=== PATIENT | female | born 1970 | race Caucasian/White ===

== ENCOUNTER 2023-03-14 10:11 | Outpatient (OUT) | payer MEDICARE, MEDICAID, SELFPAY ==
--- NOTE | 2023-03-14 | XR_ITS ---
The [address] [address] Patient Name: DASHA WRIGHT MRN: [id number] date: 1970 Sex: F Assigned Patient Location: [facility] Current Patient Location: [facility] Accession/Order Number: [id number] Exam Date: 03/14/2023 10:20 Report Date: 03/14/2023 12:40 At the request of: CLEOPATRA WHATLEY Procedure: XR shoulder NAIN min 2V STUDY: XR shoulder NAIN min 2V, [id number] HISTORY: Bilateral shoulder pain M25.511, M25.512 COMPARISON: Right shoulder x-rays 08/28/2021 FINDINGS: Right shoulder: No acute fracture, dislocation, or suspicious osseous lesion. Status post distal clavicular resection. A bone anchor is present in the humeral head. No significant glenohumeral joint degenerative changes. No abnormal soft tissue calcifications. Left shoulder: No acute fracture, dislocation, or suspicious osseous lesion. Minimal osteoarthritis of the acromioclavicular joint. Bone anchor in the proximal humerus likely from biceps tendon tenodesis. No significant degenerative changes of the glenohumeral joint. No abnormal soft tissue calcifications. XR/XR shoulder NAIN min 2V IMPRESSION: 1. Minimal osteoarthritis of the left acromioclavicular joint. 2. No significant osteoarthritis of the glenohumeral joints. 3. No evidence of calcific tendinitis. Electronically authenticated by: BERNARDINO HAYES Date: 03/14/2023 12:40
== END 2023-03-14 10:12 | disposition home or self-care (01) ==
LOC: RAD 10:11
PROVIDERS: Visit Provider Orthopaedic Surgery
DX: M25.511 Pain in right shoulder (principal); M25.512 Pain in left shoulder
CPT/HCPCS: 73030

== ENCOUNTER 2023-03-21 10:41 | Outpatient (OUT) | payer MEDICARE, MEDICAID, SELFPAY ==
--- NOTE | 2023-03-21 10:53 | MR_ITS ---
[address] [address] Patient Name: DASHA WRIGHT MRN: [id number] date: 1970 Sex: F Assigned Patient Location: MRI Current Patient Location: MRI Accession/Order Number: [id number] Exam Date: 03/21/2023 11:08 Report Date: 03/21/2023 15:29 At the request of: CLEOPATRA WHATLEY Procedure: MR shoulder RT wo con EXAMINATION: MR shoulder RT wo con HISTORY: Pain In Right Shoulder M25.511 COMPARISON: No relevant comparison available. TECHNIQUE: A variety of imaging planes and parameters were utilized for visualization of suspected pathology. Imaging was performed without or with contrast as indicated by examination type. FINDINGS: ROTATOR CUFF REGION CUFF TENDONS: Prior rotator cuff repair with hardware artifact within humeral head. Increased T2 signal diffusely within the supraspinatus tendon; high-grade strain versus tear. CUFF MUSCLES: Normal appearing muscles. DELTOID: Normal. No significant atrophy or tear. LONG BICEPS TENDON: Marked attrition; possible chronic tear; no increased fluid surrounding the tendon to suggest acute tear. LABRUM/BICEPS ANCHOR SUPERIOR: Limited evaluation due to significant motion artifact; no appreciable significant tear. ANTERIOR/INFERIOR: No appreciable tear POSTERIOR: No appreciable tear CAPSULE Normal. No visible capsular laxity or thickening. AC JOINT REGION AC JOINT: Widening of the acromioclavicular joint with prominent fluid collection within and extending anterior to the joint. AC LIGAMENTS: Obscured. CC LIGAMENTS: Obscured. ACROMION: Mild lateral downsloping. SUBACROMIAL BURSA: No appreciable effusion. HYALINE CARTILAGE: Thinning. No appreciable focal defect. OTHER BONES: Normal proximal humerus, glenoid, and coracoid. OTHER OBSERVATIONS: Negative. No other significant findings or glenohumeral effusion. MR/MR shoulder RT wo con IMPRESSION: 1. Examination is limited by significant patient motion artifact. 2. Suspect high-grade strain of the supraspinatus tendon. Partial tear cannot be completely excluded. 3. Changes within humeral head from prior rotator cuff repair. 4. Marked attrition of the long biceps tendon versus remote tear. 5. Limited evaluation of the labrum and biceps anchor due to motion. 6. Abnormal widening of the acromioclavicular joint with prominent surrounding fluid collection; new compared to 08/28/2021 right shoulder x-ray. Electronically authenticated by: CLEOPATRA COREA Date: 03/21/2023 15:29
== END 2023-03-21 10:42 | disposition home or self-care (01) ==
PROVIDERS: Visit Provider Orthopaedic Surgery
DX: M25.511 Pain in right shoulder (principal)
CPT/HCPCS: 73221

== ENCOUNTER 2023-12-26 09:24 | Outpatient (OUT) | payer MEDICARE, MEDICAID, SELFPAY ==
--- NOTE | 2023-12-26 | XR_ITS ---
The [address] [address] Patient Name: DASHA WRIGHT MRN: [id number] date: 1970 Sex: F Assigned Patient Location: Current Patient Location: Accession/Order Number: [id number] Exam Date: 12/26/2023 09:25 Report Date: 12/26/2023 14:36 At the request of: CLEOPATRA WHATLEY Procedure: XR knee LT 4V EXAM: Left knee HISTORY: . LEFT KNEE PAIN . COMPARISON: None. TECHNIQUE: 4 views FINDINGS: No fracture or dislocation of left knee is noted. Small spurs are noted involving the knee joint as well as the patellofemoral joint. Surrounding soft tissues are unremarkable. XR/XR knee LT 4V IMPRESSION: Osteoarthritic changes of the left knee. Electronically authenticated by: DEE DEE WASHINGTON Date: 12/26/2023 14:36
== END 2023-12-26 09:25 | disposition home or self-care (01) ==
LOC: EC 09:24
PROVIDERS: Visit Provider Orthopaedic Surgery
DX: M25.562 Pain in left knee (principal); M17.12 Unilateral primary osteoarthritis, left knee
CPT/HCPCS: 73564

== ENCOUNTER 2024-08-01 14:31 | Outpatient (OUT) | payer MEDICARE, MEDICAID, SELFPAY ==
--- NOTE | 2024-08-01 14:33 | ECG_ITS ---
The [facility] Test Date: 2024-08-01 Pat Name: DASHA WRIGHT Department: Room: - Gender: Female Perioperative Assistant: : 1970 Requested By: Yovani Payan Order Number: [id number] Reading MD: NICK WEAVER Measurements Intervals Brandon Rate: 75 P: 59 SC: 192 QRS: -13 QRSD: 100 T: 47 QT: 386 QTc: 434 Interpretive Statements SINUS RHYTHM No previous ECG available for comparison Electronically Signed On 08-01-2024 21:11:47 EST by NICK WEAVER
--- NOTE | 2024-08-01 15:06 | P.GSHP_ITS ---
History of Present Illness History of Present Illness Chief complaint: Right long trigger finger Narrative: Patient presents for presurgical testing. Please see HPI from Dr. Payan dated July 30, 2024 Review of Systems ROS Narrative REVIEW OF SYSTEMS: Negative except as stated in HPI, ten or more systems reviewed. Constitutional: No fever, chills, weakness ENT: No sore throat or epistaxis Cardiovascular: No edema, chest pain, palpitations, or activity intolerance Respiratory: No shortness of breath, cough, or wheezing Gastrointestinal: No abdominal pain, constipation, diarrhea, or vomiting Genitourinary: No dysuria or hematuria Neurological: No numbness, tingling, weakness, or headache Psychiatric: No mood changes PFSH PFS Medical History (Updated 08/01/24 @ 14:56 by Esther Walsh NP) Arthritis ?M19.90 - Unspecified osteoarthritis, unspecified site (ICD-10) PTSD (post-traumatic stress disorder) ?F43.10 - Post-traumatic stress disorder, unspecified (ICD-10) Upper respiratory infection (06/2024) ?J06.9 - Acute upper respiratory infection, unspecified (ICD-10) Asthma ?J45.909 - Unspecified asthma, uncomplicated (ICD-10) Migraine ?G43.909 - Migraine, unspecified, not intractable, without status migrainosus (ICD-10) Menopause ?Z78.0 - Asymptomatic menopausal state (ICD-10) Anxiety ?F41.9 - Anxiety disorder, unspecified (ICD-10) Depression ?F32.A - Depression, unspecified (ICD-10) Hypertension ?I10 - Essential (primary) hypertension (ICD-10) COPD (chronic obstructive pulmonary disease) ?J44.9 - Chronic obstructive pulmonary disease, unspecified (ICD-10) Trigger finger ?M65.30 - Trigger finger, unspecified finger (ICD-10) Surgical History (Updated 08/01/24 @ 14:53 by Esther Walsh NP) History of tonsillectomy ?Z90.89 - Acquired absence of other organs (ICD-10) H/O hand surgery ?Z98.890 - Other specified postprocedural states (ICD-10) History of arthroscopy of knee ?Z98.890 - Other specified postprocedural states (ICD-10) History of arthroscopy of shoulder ?Z98.890 - Other specified postprocedural states (ICD-10) H/O arthroscopic knee surgery ?Z98.890 - Other specified postprocedural states (ICD-10) History of carpal tunnel release ?Z98.890 - Other specified postprocedural states (ICD-10) H/O shoulder surgery ?Z98.890 - Other specified postprocedural states (ICD-10) H/O tubal ligation ?Z98.51 - Tubal ligation status (ICD-10) History of appendectomy ?Z90.49 - Acquired absence of other specified parts of digestive tract (ICD- 10) Family History (Updated 08/01/24 @ 14:53 by Esther Walsh NP) Other Delayed recovery from anesthesia Family history of diabetes mellitus Family history of hypertension Family history of stroke Social History (Updated 08/01/24 @ 14:50 by Esther Walsh NP) Within the past year, how often did you have a drink containing alcohol: never Score interpretation: A score less than 3 is consistent with normal alcohol consumption. Smoking status: Never smoker Non-prescribed substance use: denies use Highest level of school completed/degree received: high school graduate Meds Home Medications and Allergies Home Medications ?Medication ?Instructions ?Recorded ?Confirmed ?Type albuterol sulfate 90 mcg/actuation 2 puff inhalation Q4H PRN 08/01/24 08/01/24 History aerosol inhaler shortness of breath or wheezing fluticasone 250 mcg-salmeterol 50 1 inh inhalation DAILY 08/01/24 08/01/24 History mcg/dose blistr powdr for inhalation (Wixela Inhub) ibuprofen 800 mg tablet 800 mg PO Q8H PRN pain 08/01/24 08/01/24 History Allergies Allergy/AdvReac Type Severity Reaction Status Date / Time tramadol Allergy Nausea Verified 08/01/24 14:48 Exam Narrative Exam Narrative: Constitutional: Awake, alert, comfortable, well-appearing, nontoxic, interactive, vital signs as charted Head: Normocephalic, atraumatic Neck: Supple, normal appearance, normal range of motion, no meningeal signs, no lymphadenopathy Respiratory: No respiratory distress, breath sounds clear Cardiovascular: Regular rate and rhythm, strong and regular heart tones Skin: No rashes or induration, no lesions, only visible skin inspected Neuro: No neurological deficits, normal sensation Psychiatric: Oriented ?3, normal affect Assessment and Plan Assessment and Plan (1) Trigger finger: Plan Third finger right hand trigger finger release scheduled with Dr. Payan August 06, 2024.
--- NOTE | 2024-08-01 15:20 | XR_ITS ---
The [address] [address] Patient Name: DASHA WRIGHT MRN: [id number] date: 1970 Sex: F Assigned Patient Location: [facility] Current Patient Location: [facility] Accession/Order Number: [id number] Exam Date: 08/01/2024 15:25 Report Date: 08/01/2024 15:48 At the request of: CLEOPATRA WHATLEY Procedure: XR chest 2V EXAM: XR chest 2V HISTORY: Pre op COMPARISON: None. TECHNIQUE: Upright PA and lateral chest x-ray FINDINGS: The heart is not enlarged and the vasculature is not distended. No acute infiltrate, effusion or pneumothorax is identified. The osseous structures are grossly intact. XR/XR chest 2V IMPRESSION: No acute infiltrate or evidence of cardiac decompensation. Electronically authenticated by: DAYNA MURPHY Date: 08/01/2024 15:48
== END 2024-08-01 14:32 | disposition home or self-care (01) ==
LOC: PST 14:32
PROVIDERS: Visit Provider Orthopaedic Surgery
DX: Z01.810 Encounter for preprocedural cardiovascular examination (principal); Z01.818 Encounter for other preprocedural examination; M65.331 Trigger finger, right middle finger
CPT/HCPCS: 71046; 93005; G0463

== ENCOUNTER 2024-08-06 12:23 | Day surgery (SDC) | payer MEDICARE, MEDICAID, SELFPAY ==
[2024-08-01 15:04] VITALS: BP 114/85; PULSE 84; TEMP 36.3; O2SAT 95; BMI 37.8
--- OUTSIDE RECORDS SUMMARY | 2024-08-06 12:43 | XMS_ITS | CCD ---
Author Organization [facility] Care Team Providers Care Computer Analyst Supervisor Name Role Phone Wally Lala Primary Care Provider [phone] Talha Sanchez Primary Care Provider Donna BOYD - TONE REGULATORSia Primary Care Provider SIA THOMPSON R Primary Care Unavailable HIREN MÁRQUEZA Referring Unavailable CLEOPATRA PAYAN Referring Unavailable KLONK, SIA R Primary Care Unavailable CLEOPATRA PAYAN Referring Unavailable KLONK, SIA R Primary Care Unavailable KATIE, ROSALIO S Referring Unavailable SCHWLACIER, TALHA Primary Care Unavailable CLEOPATRA PAYAN Admitting Unavailable KLSALASK, SIA R Primary Care Unavailable CLEOPATRA PAYAN Attending Unavailable CLEOPATRA PAYAN Attending Unavailable CLEOPATRA PAYAN Admitting Unavailable KLONK, SIA R Primary Care Unavailable CLEOPATRA PAYAN Admitting Unavailable CLEOPATRA PAYAN Attending Unavailable BRIANONK, SIA R Primary Care Unavailable KATIE, ROSALIO S Referring Unavailable SCHWERER, TALHA Primary Care Unavailable KLONK, SIA R Primary Care Unavailable WILLI JOSEPHINE Referring Unavailable CLEOPATRA PAYAN Referring Unavailable KLONK, SIA R Primary Care Unavailable CLEOPATRA PAYAN Admitting Unavailable CLEOPATRA PAYAN Attending Unavailable JARODK, SIA R Primary Care Unavailable MAGALY MACK Referring Unavailable KLONK, SIA R Primary Care Unavailable WILLI, JOSEPHINE J Referring Unavailable KLONK, SIA R Primary Care Unavailable CLEOPATRA PAYAN Referring Unavailable KLONK, SIA R Primary Care Unavailable RONAK HOGUE Referring Unavailable KLONK, SIA R Primary Care Unavailable CLEOPATRA PAYAN Referring Unavailable KLONK, SIA R Primary Care Unavailable HOGUE, KIMBERLEE Referring Unavailable KLONK, SIA R Primary Care Unavailable CLEOPATRA PAYAN Referring Unavailable KLONK, SIA R Primary Care Unavailable CLEOPATRA PAYAN Referring Unavailable KLONK, SAI R Primary Care Unavailable HOGUE, KIMBERLEE Referring Unavailable KLONK, SIA R Primary Care Unavailable HOGUE, KIMBERLEE Referring Unavailable KLONK, SIA R Primary Care Unavailable CLEOPATRA PAYAN Referring Unavailable KLONK, SIA R Primary Care Unavailable CLEOPATRA PAYAN Referring Unavailable KLONK, SIA R Primary Care Unavailable PAYAN, CLEOPATRA C Referring Unavailable KLONK, SIA R Primary Care Unavailable Klonk, Sia R Primary Care Physician Ariel Mckeon Unavailable MD Ariel Mckeon Attending Provider NO FAMILY, PHYSICIAN Primary Care Provider Unava ilable RONALD Thompson-C Sia R Primary Care Provider MD Ariel Mckeon Attending Provider RONALD Thompson-Bo Garland Primary Care Provider [phone] RONALD Thompson-Bo Garland Primary Care Provider MD Ariel Mckeon Attending Provider MARCELINO Thompson Attending Provider RONALD Thompson-C Sia R Primary Care Provider MD Ariel Mckeon Attending Provider MARCELINO Thompson Attending Provider Leslie Hannah Unavailable MARCELINO Thompson Primary Care Provider MD Ariel Mckeon Attending Provider Sury Mohr Unavailable RONALD Thompson-C Sia R Primary Care Provider MARCELINO Thompson Attending Provider MD Ariel Mckeon Attending Provider Ellie Ritchie Unavailable MARCELINO Thompson R Primary Care Provider MD Ariel Mckeon Attending Provider [phone] Olexa, Ariel Admitting Unavailable Olexa, Ariel Attending Unavailable Klonk, Sia R Primary Care Unavailable Klonk, Sia R Admitting Unavailable Klonk, Sia R Attending Unavailable Klonk, Sia R Primary Care Unavailable Olexa, Ariel Attending Unavailable Klonk, Sia R Primary Care Unavailable Olexa, Ariel Admitting Unavailable Olexa, Ariel Attending Unavailable Klonk, Sia R Primary Care Unavailable Olexa, Ariel Admitting Unavailable Olexa, Ariel Attending Unavailable Olexa, Ariel Admitting Unavailable Klonk, Sia R Primary Care Unavailable Olexa, Ariel Attending Unavailable Olexa, Ariel Admitting Unavailable Klonk, Sia R Primary Care Unavailable Olexa, Ariel Attending Unavailable Klonk, Sia R Primary Care Unavailable Olexa, Ariel Admitting Unavailable Olexa, Ariel Admitting Unavailable Olexa, Ariel Attending Unavailable Klonk, Sia R Primary Care Unavailable Olexa, Ariel Attending Unavailable Olexa, Ariel Admitting Unavailable Klonk, Sia R Primary Care Unavailable Olexa, Ariel Admitting Unavailable Olexa, Ariel Attending Unavailable Klonk, Sia R Primary Care Unavailable Olexa, Ariel Attending Unavailable Klonk, Sia R Primary Care Unavailable Olexa, Ariel Admitting Unavailable Olexa, Ariel Admitting Unavailable Olexa, Ariel Attending Unavailable Klonk, Sia R Primary Care Unavailable Olexa, Ariel Admitting Unavailable Olexa, Ariel Attending Unavailable Klonk, Sia R Primary Care Unavailable MELANY SCHUMACHER Primary Care Physician [phone] KEMI FERNANDEZ Attending Unavailable MELANY SCHUMACHER Primary Care Physician [phone] MELANY SCHUMACHER Attending Unavailable MELANY SCHUMACHER Attending Unavailable MELANY SCHUMACHER Admitting Unavailable MELANY SCHUMACHER Attending Unavailable MELANY SCHUMACHER A Consulting Unavailable REFERRAL, SELF Referring Unavailable REFERRAL, SELF Admitting Unavailable REFERRAL, SELF Attending Unavailable MELANY SCHUMACHER Consulting Unavailable MELANY SCHUMACHER Consulting Unavailable PATO, MELANY A Consulting Unavailable PATO, MELANY A Consulting Unavailable PATO, MELANY A Consulting Unavailable PATO, MELANY A Consulting Unavailable PATO, MELANY A Consulting Unavailable PATO, MELANY A Consulting Unavailable PATO, MELANY A Attending Unavailable PATO, MELANY A Attending Unavailable PATO, MELANY A Attending Unavailable PATO, MELANY A Attending Unavailable PATO, MELANY A Attending Unavailable PATO, MELANY A Attending Unavailable PATO, MELANY A Attending Unavailable PATO, MELANY A Attending Unavailable PATO, MELANY A Attending Unavailable PATO, MELANY A Attending Unavailable PATO, MELANY A Attending Unavailable PATO, MELANY A Attending Unavailable Allergies Allergy Classification Reported Allergen(s) Allergy Type Date of Onset Reaction(s) Facility [facility]io[facility]onists (8 sources) traMADol; Translations: [tramadol] Drug Allergy 07-18-19 Tachycardia (finding), Nausea (finding) [facility] (20 sources) traMADol; Translations: [tramadol] Drug Allergy 07-18-19 Other (See Comments), Tachycardia (finding), Nausea (finding) [facility] (5 sources) liraglutide; Translations: [liraglutide] Drug Allergy 08-11-19 Gastrointestinal Upset [facility] (1 source) traMADol Drug Allergy 08-26-19 [facility] (1 source) No Known Medication Allergies; Translations: [No Known Medication Allergies] Propensity to adverse reactions (disorder) [facility] Medications Current Medications Medication Drug Class(es) Dates Sig (Normalized) Sig (Original) acetaminophen 325 mg / HYDROcodone bitartrate 5 mg oral tablet (14 sources) Opioid Agonist Start: 08-23-2022 take 1 tablet by mouth every four hours as needed for pain HYDROcodone-Aceta minophen 5-325 MG 1 tablet as needed for pain Orally up to every 4 hrs for 5 days ROSENDO: [id number] Jul, Active Start: 04-03-2021 End: 04-06-2021 take 1-2 tablets by mouth every four to six hours as needed for pain and pain, then take 1-2 tablets by mouth every four to six hours as needed for pain and pain HYDROcodone-acetaminophen (NORCO) 5-325 MG per tablet Indications: S/P arthroscopic partial medial meniscectomy Take 1-2 tablets by mouth every 4-6 hours as needed for Pain for up to 3 days. 1-2 tabs by mouth every 4-6 hours as needed for pain. 20 tablet 0 04/03/2021 04/06/2021 Active Start: 02-18-2021 End: 02-21-2021 take 1 tablet by mouth every six hours as needed for pain and pain, then take 1-2 tablets by mouth every four to six hours as needed for pain and pain HYDROcodone-acetaminophen (NORCO) 5-325 MG per tablet Indications: Carpal tunnel syndrome of left wrist Take 1 tablet by mouth every 6 hours as needed for Pain for up to 3 days. 1-2 tabs by mouth every 4-6 hours as needed for pain. 10 tablet 0 02/18/2021 02/21/2021 Active Start: 02-13-2021 End: 02-13-2021 HYDROcodone-acetaminophen (N ORCO) 5-325 MG per tablet 1 tablet Start: 12-12-2020 End: 12-15-2020 HYDROcodone-acetaminophen (N ORCO) 5-325 MG per tablet Indications: Post-operative pain Take 1 tablet by mouth every 4-6 hours as needed for Pain for up to 3 days. Intended supply: 3 days. Take lowest dose possible to manage pain 10 tablet 0 12/12/2020 12/15/2020 Active Start: 12-12-2020 End: 12-12-2020 HYDROcodone-acetaminophen (N ORCO) 5-325 MG per tablet 1 tablet acetaminophen 325 mg / oxyCODONE hydrochloride 5 mg oral tablet (5 sources) Opioid Agonist Start: 03-30-2022 take 1 tablet by mouth every four hours as needed for pain Percocet 5-325 MG 1 tablet as needed for pain Orally up to every 4 hrs for 5 days ROSENDO: [id number] Mar, Active Start: 07-18-2020 End: 07-23-2020 take 1 tablet by mouth every four hours as needed for pain, then take 1 tablet by mouth as needed for pain oxyCODONE-acetaminophen (PERCOCET) 5-325 MG per tablet Indications: Post-operative pain Take 1 tablet by mouth every 4 hours as needed for Pain for up to 5 days. Intended supply: 7 days. Take lowest dose possible to manage pain 30 tablet 0 07/18/2020 07/23/2020 Active Advair Diskus 250-50 MCG/DOS E (19 sources) Advair Diskus 25 0-50 MCG/DOSE Inhalation Active [id number] 200 actuat albuterol 0.09 mg/actuat metered dose inhaler (20 sources) beta2-Adrenergic Agonist Start: 03-18-2022 Albut ricci Sulfate (Ventolin Hfa) 90 mcg/actuation HFA aerosol inhaler Active 1 - 2 PUFF INHALATION As Directed March 18, 2022 12:00am Ventolin HFA Act la nena 24 hr buPROPion hydrochloride 300 mg extended release oral tablet (20 sources) Aminoketone Start: 03-18-2022 take 300 mg by mouth once daily Bupropion Hcl Active 300 MG PO Daily March 18, 2022 12:00am Start: 07-06-2021 take 1 tablet by alicia th once daily Wellbutrin XL 300 mg/24 hours Tab-ER 300 mg = 1 tab(s), Oral, Daily, # 90 tab(s), Refills(s) 2, Pharmacy: [facility] #[id number], 160, cm, 05/11/21 11:40:00 EST, Height/Length Dosing, 103.8, kg, 05/11/21 11:40:00 EST, Weight Dosing Start Date: 07/06/21 Status: Ordered Start: 02-09-2021 take 1 tablet by alicia th every twenty-four hours buPROPion (WELLBUTRIN XL) 150 MG extended release tablet TAKE 1 TABLET BY MOUTH EVERY 24 HOURS 0 02/09/2021 Active buPROPion HCl Ac tive cephalexin 500 mg oral capsule (4 sources) Cephalosporin Antibacterial Start: 03-30-2022 take 1 capsule by mouth every eight hours Cephalexin 500 MG 1 capsule Orally every 8 hrs for 2 days Mar, Active diclofenac sodium 0.01 mg/mg topical gel (20 sources) Nonsteroidal Anti-inflammatory Drug Start: 09-01-2023 apply 2 g topically four times daily Voltaren Arthritis Pain 1% topical gel 2 gm, Topical, QID, 100 gm, Refill(s) 2, [facility] #[id number], 160, cm, 08/17/23 9:37:00 EST, Height/Length Dosing, 90.4, kg, 08/17/23 9:37:00 EST, Weight Dosing Start Date: 09/01/23 Status: Ordered Start: 04-20-2022 apply 2 g topically four times daily Voltaren Arthritis Pain 1% topical gel 2 gm, Topical, QID, 100 gm, Refill(s) 6, [facility] #[id number], 160, cm, 04/20/22 9:20:00 EDT, Height/Length Dosing, 97.5, kg, 04/20/22 9:20:00 EDT, Weight Dosing Start Date: 04/20/22 Status: Ordered Start: 03-18-2022 Diclofenac Sod ium Active 2 GM TOPICAL As Directed March 18, 2022 12:00am Start: 05-11-2021 apply 2 g topically four times daily Voltaren Arthritis Pain 1% topical gel 2 gm, Topical, QID, 100 gm, Refill(s) 6, [facility] #[id number], 160, cm, 05/11/21 11:40:00 EST, Height/Length Dosing, 103.8, kg, 05/11/21 11:40:00 EST, Weight Dosing Start Date: 08/03/21 Status: Ordered Diclofenac Sodiu m 1 % as directed Externally Active 2 ml fentaNYL 0.05 mg/ml injection (2 sources) Opioid Agonist Start: 02-18-2021 25 mcg, IntraV ENous, EVERY 5 MIN PRN, Pain Moderate (4-6), Starting on Tue02/18/21 at 1447, For 4 doses Phase I - Initial therapy for moderate pain. PACU only Start: 12-12-2020 fentaNYL (SUBL IMAZE) injection 50 mcg Handicap placard (10 sources) Start: 08-24-[address] Handicap placard, See Instructions, 1 EA, 0, Use as directed. Expiration 5 years, Supply Start Date: 08/24/22 Status: Ordered ibuprofen 800 mg oral tablet (20 sources) Nonsteroidal Anti-inflammatory Drug Start: 09-14-2023 take 1 tablet by mouth three times daily ibuprofen 800 mg Tab 800 mg = 1 tab(s), Oral, TID, # 90 tab(s), Refills(s) 1, Pharmacy: [facility] #[id number], 160, cm, 09/14/23 9:28:00 EDT, Height/Length Dosing, 89.6, kg, 09/14/23 9:28:00 EDT, Weight Dosing Start Date: 09/14/23 Status: Ordered Start: 03-18-2022 take 800 mg by mouth three times daily Ibuprofen Active 800 MG PO Three times daily March 18, 2022 12:00am Start: 03-18-2022 take 800 mg by mouth five times daily Ibuprofen Active 800 MG PO Three times daily March 17, 2022 11:00pm Instructed to stop 5 days prior to surgery Start: 12-09-2021 take 1 tablet by alicia th every twelve hours ibuprofen 800 mg Tab 800 mg = 1 tab(s), Oral, q12hr, # 30 tab(s), Refills(s) 5, [id number], 160, cm, 12/09/21 13:46:00 EDT, Height/Length Dosing, 99.4, kg, 12/09/21 13:46:00 EDT, Weight Dosing Start Date: 03/22/22 Status: Ordered take 1 tablet by alicia th every twelve hours Ibuprofen 800 MG 1 tablet with food or milk Orally two times a day Active ketorolac tromethamine 10 mg oral tablet (3 sources) Nonsteroidal Anti-inflammatory Drug, Cyclooxygenase Inhibitor Start: 04-03-2021 End: 04-08-2021 take 1 tablet by mouth three times daily, then take 1 tablet by mouth three times daily ketorolac (TORADOL) 10 MG tablet Take 1 tablet by mouth 3 times daily for 5 days 1 tab by mouth 3 times daily 15 tablet 0 04/03/2021 04/08/2021 Active Start: 07-18-2020 End: 12-08-2020 take 1 tablet by mouth three times daily ketorolac (TORADOL) 10 MG tablet Take 1 tablet by mouth 3 times daily for 5 days 15 tablet 0 07/18/2020 12/08/2020 Discontinued (Therapy completed) labetalol hydrochloride 5 mg/ml injectable solution (1 source) beta-Adrenergic Miracle Start: 02-18-2021 5 mg, IntraVENous, EVERY 10 MIN PRN, High Blood Pressure, Starting on Tue02/18/21 at 1449 PRN for SBP >160 for 2 consecutive measurements, if HR is 60 or greater. If beta miracle is contraindicated (HR less than 60, heart block, COPD or asthma) use hydralazine IV order. PACU only 3 ml liraglutide 6 mg/ml pen injector (12 sources) GLP-1 Receptor Agonist Start: 07-05-2022 Victoza 18 MG/3ML Week one- 0.6mg daily, Week two- 1.2mg daily, Week three thereafter- 1.8mg daily Subcutaneous Daily for 30 days Jun, Active lisinopril 20 mg oral tablet (20 sources) Angiotensin Converting Enzyme Inhibitor Start: 03-18-2022 take 20 mg by mouth once daily Lisinopril Active 20 MG PO Daily March 18, 2022 12:00am Start: 05-16-2018 End: 12-28-2021 take 20 mg by mouth once daily Lisinopril Active 20 MG PO Daily March 18, 2022 12:00am methocarbamol 500 mg oral tablet (2 sources) Muscle Relaxant Start: 07-02-2022 End: 07-09-2022 take 2 tablets by mouth four times daily as needed for pain methocarbamol 500 mg Tab 1,000 mg = 2 tab(s), Oral, QID, PRN as needed for pain, X 7 day(s), # 56 tab(s), Refills(s) 0, Pharmacy: [facility] #[id number], 160, cm, 04/20/22 9:20:00 EDT, Height/Length Dosing, 97.5, kg, 04/20/22 9:20:00 EDT, Weight Dosing Start Date: 07/02/22 Stop Date: 07/09/22 Status: Ordered take 2 tablets by [facility] four times daily methocarbamol (ROBAXIN) 500 MG tablet Ta ke 1,000 mg by mouth 4 times daily 0 Active methylPREDNISolone 4 mg oral tablet (1 source) Corticosteroid Start: 08-12-2022 End: 08-18-2022 Medrol 4 mg Tab = 1 packet(s), Oral, As Directed, as directed on package labeling, X 6 day(s), # 21 tab(s), Refills(s) 0, Pharmacy: [facility] #[id number], 160, cm, 08/12/22 8:36:00 EST, Height/Length Dosing, 96, kg, 08/12/22 8:36:00 EST, Weight Dosing Start Date: 08/12/22 Stop Date: 08/18/22 Status: Ordered 2 ml metoclopramide 5 mg/ml prefilled syringe (1 source) Dopamine-2 Receptor Antagonist Start: 12-12-2020 End: 12-12-2020 metoclopramide (REGLAN) injection 10 mg montelukast 10 mg oral tablet (16 sources) Leukotriene Receptor Antagonist Start: 03-22-2022 take 10 mg by mouth once daily in the evening Montelukast Active 10 MG PO Every evening August 11, 2022 1:00am Start: 02-09-2021 take 1 tablet by [facility] once daily in the evening Singulair 10 mg Tab 10 mg = 1 tab(s), Oral, qPM, # 30 tab(s), Refills(s) 3, Pharmacy: [facility] #[id number], 160, cm, 01/15/21 9:59:00 EDT, Height/Length Dosing, 100.5, kg, 01/15/21 9:59:00 EDT, Weight Dosing Start Date: 02/09/21 Status: Ordered omeprazole 20 mg delayed release oral capsule (6 sources) Proton Pump Inhibitor Start: 03-18-2022 take 1 capsule by mouth once daily omeprazole 20 mg Cap-DR 20 mg = 1 cap(s), Oral, Daily, # 30 cap(s), Refills(s) 6, Pharmacy: [facility] #[id number], 160, cm, 12/09/21 13:46:00 EDT, Height/Length Dosing, 99.4, kg, 12/09/21 13:46:00 EDT, Weight Dosing Start Date: 03/18/22 Status: Ordered Start: 08-13-2021 take 1 capsule by [facility] once daily omeprazole 20 mg Cap-DR 20 mg = 1 cap(s), Oral, Daily, # 30 cap(s), Refills(s) 6, Pharmacy: [facility] #[id number], 160, cm, 08/13/21 10:11:00 EST, Height/Length Dosing, 109, kg, 08/13/21 10:11:00 EST, Weight Dosing Start Date: 08/13/21 Status: Ordered omeprazole 20 mg Cap-DR (1 source) Start: 08-13-2021 take 1 capsule by mouth once daily omeprazole 20 mg Cap-DR 20 mg = 1 cap(s), Oral, Daily, # 30 cap(s), Refills(s) 6, Pharmacy: [facility] #[id number], 160, cm, 08/13/21 10:11:00 EST, Height/Length Dosing, 109, kg, 08/13/21 10:11:00 EST, Weight Dosing Start Date: 08/13/21 Status: Ordered 2 ml ondansetron 2 mg/ml injection (1 source) Serotonin-3 Receptor Antagonist Start: 02-18-2021 End: 02-18-2021 4 mg, IntraVENous, ONCE PRN, Nausea, Starting on Tue02/18/21 at 1449, For 1 dose Initial antiemetic therapy. PACU only phentermine hydrochloride 37.5 mg oral tablet (17 sources) Sympathomimetic Amine Anorectic Start: 12-07-2023 take 1 tablet by mouth once daily Adipex-P 37.5 mg Tab 37.5 mg = 1 tab(s), Oral, Daily, # 30 tab(s), Refills(s) 0, Pharmacy: [facility] #[id number], 161, cm, 12/07/23 8:10:00 EDT, Height/Length Dosing, 88.5, kg, 12/07/23 8:10:00 EDT, Weight Dosing Start Date: 12/07/23 Status: Ordered Start: 06-21-2023 take 1 capsule by [facility] once daily Adipex-P 37.5 mg oral capsule 37.5 mg = 1 cap(s), Oral, Daily, # 30 cap(s), Refills(s) 0, Pharmacy: [facility] #[id number], 160, cm, 06/21/23 9:10:00 EST, Height/Length Dosing, 92.4, kg, 06/21/23 9:10:00 EST, Weight Dosing Start Date: 06/21/23 Status: Ordered Start: 05-30-2023 take 1 capsule by [facility] once daily Adipex-P 37.5 mg oral capsule 37.5 mg = 1 cap(s), Oral, Daily, # 30 cap(s), Refills(s) 0, Pharmacy: [facility] #[id number], 160, cm, 05/30/23 8:26:00 EST, Height/Length Dosing, 92.6, kg, 05/30/23 8:26:00 EST, Weight Dosing Start Date: 05/30/23 Status: Ordered Start: 05-02-2023 take 1 capsule by [facility] once daily Adipex-P 37.5 mg oral capsule 37.5 mg = 1 cap(s), Oral, Daily, # 30 cap(s), Refills(s) 0, [id number], 160, cm, 05/02/23 10:34:00 EST, Height/Length Dosing, 97.3, kg, 05/02/23 10:34:00 EST, Weight Dosing Start Date: 05/02/23 Status: Ordered Start: 10-12-2021 take 1 tablet by [facility] once daily Adipex-P 37.5 mg Tab 37.5 mg = 1 tab(s), Oral, Daily, # 30 tab(s), Refills(s) 0, Pharmacy: [facility] #[id number], 160, cm, 10/12/21 11:04:00 EDT, Height/Length Dosing, 102, kg, 10/12/21 11:04:00 EDT, Weight Dosing Start Date: 10/12/21 Status: Ordered Start: 01-01-2020 End: 02-28-2020 take 1 tablet by mouth once daily before breakfast phentermine (ADIPEX-P) 37.5 MG tablet Indications: Obesity (BMI 35.0-39.9 without comorbidity) Take 1 tablet by mouth every morning (before breakfast) for 30 days. 30 tablet 0 01/29/2020 02/28/2020 Active 1 ml promethazine hydrochloride 25 mg/ml injection (1 source) Phenothiazine Start: 12-12-2020 End: 12-12-2020 promethazine (PHENERGAN) injection 6.25 mg QUEtiapine 25 mg oral tablet (20 sources) Atypical Antipsychotic Start: 11-21-2020 take 1 tablet by mouth at bedtime SEROquel 25 mg Tab 25 mg = 1 tab(s), Oral, Bedtime, # 30 tab(s), Refills(s) 5, Pharmacy: [facility] #[id number], 160, cm, 08/12/22 8:36:00 EST, Height/Length Dosing, 96, kg, 08/12/22 8:36:00 EST, Weight Dosing Start Date: 09/03/22 Status: Ordered sertraline 50 mg oral tablet (20 sources) Serotonin Reuptake Inhibitor Start: 06-21-2023 take 1 tablet by mouth once daily sertraline 50 mg Tab 50 mg = 1 tab(s), Oral, Daily, # 30 tab(s), Refills(s) 1, Pharmacy: [facility] #[id number], 160, cm, 06/21/23 9:10:00 EST, Height/Length Dosing, 92.4, kg, 06/21/23 9:10:00 EST, Weight Dosing Start Date: 06/21/23 Status: Ordered Start: 05-02-2023 take 1 tablet by alicia once daily Zoloft 25 mg Tab 25 mg = 1 tab(s), Oral, Daily, # 90 tab(s), Refills(s) 0, Pharmacy: [facility] #[id number], 160, cm, 05/02/23 10:34:00 EST, Height/Length Dosing, 97.3, kg, 05/02/23 10:34:00 EST, Weight Dosing Start Date: 05/02/23 Status: Ordered Start: 03-18-2022 Zoloft 100 mg Tab 150 mg = 1.5 tab(s), Oral, Daily, # 45 tab(s), Refills(s) 2, Pharmacy: [facility] #[id number], 160, cm, 12/09/21 13:46:00 EDT, Height/Length Dosing, 99.4, kg, 12/09/21 13:46:00 EDT, Weight Dosing Start Date: 03/18/22 Status: Ordered Start: 03-18-2022 take 150 mg by mouth once daily Sertraline Active 150 MG PO Daily March 18, 2022 12:00am Start: 08-27-2021 Zoloft 100 mg Tab 150 mg = 1.5 tab(s), Oral, Daily, # 45 tab(s), Refills(s) 2, Pharmacy: [facility] #[id number], 160, cm, 08/13/21 10:11:00 EST, Height/Length Dosing, 109, kg, 08/13/21 10:11:00 EST, Weight Dosing Start Date: 08/27/21 Status: Ordered Zoloft 100 MG 1 AND 1/2 tablet Orally Once a day Active traZODone hydrochloride 50 mg oral tablet (13 sources) Serotonin Reuptake Inhibitor take 1 tablet by mouth once daily traZODone (DESYREL) 50 MG tablet Take 50 mg by mouth nightly 0 Active Voltaren Arthritis Pain 1% topical gel (1 source) Start: 2 apply 2 g topically four times daily Voltaren Arthritis Pain 1% topical gel 2 gm, Topical, QID, 100 gm, Refill(s) 6, [facility] #[id number], 160, cm, 05/11/21 11:40:00 EST, Height/Length Dosing, 103.8, kg, 05/11/21 11:40:00 EST, Weight Dosing Start Date: 08/03/21 Status: Ordered Completed/Discontinued Medications Medication Drug Class(es) Dates Sig (Normalized) Sig (Original) acetaminophen 325 mg oral tablet (2 sources) Start: 02-18-2021 End: 02-18-2021 acetaminophen (TYLENOL) tablet 650 mg Start: 02-13-2021 End: 02-13-2021 acetaminophen (TYLENOL) tabl et 650 mg albuterol HFA 90 mcg/inh MDI (15 sources) Start: 09-01-2023 take 1 dose by inhalation every four hours albuterol HFA 90 mcg/inh MDI 1 puff(s), Inhalation, q4hr for wheezing/shortness of breath, 1 EA, Refill(s) 6, [facility] #[id number], 160, cm, 08/17/23 9:37:00 EST, Height/Length Dosing, 90.4, kg, 08/17/23 9:37:00 EST, Weight Dosing Start Date: 09/01/23 Status: Ordered Start: 10-27-2022 take 1 dose by inhal ation every four hours albuterol HFA 90 mcg/inh MDI 1 puff(s), Inhalation, q4hr for wheezing/shortness of breath, 1 EA, Refill(s) 6, [facility] #[id number], 160, cm, 08/12/22 8:36:00 EST, Height/Length Dosing, 96, kg, 08/12/22 8:36:00 EST, Weight Dosing Start Date: 10/27/22 Status: Ordered Start: 05-06-2022 take 1 dose by inhal ation every four hours albuterol HFA 90 mcg/inh MDI 1 puff(s), Inhalation, q4hr for wheezing/shortness of breath, 1 EA, Refill(s) 6, [facility] #[id number], 160, cm, 04/20/22 9:20:00 EDT, Height/Length Dosing, 97.5, kg, 04/20/22 9:20:00 EDT, Weight Dosing Start Date: 05/06/22 Status: Ordered Start: 03-12-2022 take 1 dose by inhal ation every four hours albuterol HFA 90 mcg/inh MDI 1 puff(s), Inhalation, q4hr for wheezing/shortness of breath, 1 EA, Refill(s) 2, [facility] #[id number], 160, cm, 12/09/21 13:46:00 EDT, Height/Length Dosing, 99.4, kg, 12/09/21 13:46:00 EDT, Weight Dosing Start Date: 03/12/22 Status: Ordered Start: 01-21-2021 take 1 dose by inhal ation every four hours albuterol HFA 90 mcg/inh MDI 1 puff(s), Inhalation, q4hr for wheezing/shortness of breath, 1 EA, Refill(s) 2, [facility] #[id number], 160, cm, 01/15/21 9:59:00 EDT, Height/Length Dosing, 100.5, kg, 01/15/21 9:59:00 EDT, Weight Dosing Start Date: 01/21/21 Status: Ordered baclofen 10 mg oral tablet (18 sources) gamma-Aminobutyric Acid-ergic Agonist Start: 03-18-2022 End: 08-11-2022 take 10 mg by mouth twice daily Baclofen Discontinued 10 MG PO Twice daily March 18, 2022 12:00am August 11, 2022 11:57am Start: 12-09-2021 End: 03-09-2022 take 1 tablet by mouth twice daily as needed for pain baclofen 10 mg Tab 10 mg = 1 tab(s), Oral, BID, PRN Pain, X 30 day(s), # 60 tab(s), Refills(s) 2, Pharmacy: [facility] #[id number], 160, cm, 12/09/21 13:46:00 EDT, Height/Length Dosing, 99.4, kg, 12/09/21 13:46:00 EDT, Weight Dosing Start Date: 12/09/21 Stop Date: 03/09/22 Status: Ordered calcium chloride 0.0014 meq/ ml / potassium chloride 0.004 meq/ml / sodium chloride 0.103 meq/ml / sodium lactate 0.028 meq/ml injectable solution (3 sources) Start: 02-18-2021 End: 02-18-2021 lactated ringers infusion Start: 02-13-2021 lactated ringe rs infusion Start: 12-12-2020 lactated ringe rs infusion ceFAZolin (ANCEF) 2000 mg in dextrose 5 % 100 mL IVPB (2 sources) Start: 02-18-2021 End: 02-18-2021 ceFAZolin (ANCEF) 2000 mg in dextrose 5 % 100 mL IVPB Start: 12-12-2020 End: 12-12-2020 ceFAZolin (ANCEF) 2000 mg in dextrose 5 % 100 mL IVPB dimenhyDRINATE 50 mg oral ta blet (1 source) Start: 02-18-2021 End: 02-18-2021 dimenhyDRINATE (DRAMAMINE) tablet 50 mg Durolane (4 sources) Start: 12-27-2022 Durolane 2022 60 mg Start: 12-27-2022 fluticasone / salmeterol (20 sources) Corticosteroid, beta2-Adrenergic Agonist Start: 10-28-2023 take 1 puff(s) by mouth twice daily Advair Diskus 250 mcg-50 mcg inhalation powder See Instructions, 60 blister(s), Refill(s) 4, Inhale 1 puff by mouth twice daily. Rinse mouth and throat after use, [facility] #[id number], 161, cm, 10/12/23 8:32:00 EDT, Height/Length Dosing, 91.2, kg, 10/12/23 8:32:00 EDT, Weight Dosing Start Date: 10/28/23 Status: Ordered Start: 10-01-2022 take 1 puff(s) by [facility] twice daily Advair Diskus 250 mcg-50 mcg inhalation powder See Instructions, 60 blister(s), Refill(s) 4, Inhale 1 puff by mouth twice daily. Rinse mouth and throat after use, [facility] #[id number], 160, cm, 08/12/22 8:36:00 EST, Height/Length Dosing, 96, kg, 08/12/22 8:36:00 EST, Weight Dosing Start Date: 10/01/22 Status: Ordered Start: 05-06-2022 take 1 puff(s) by [facility] twice daily Advair 250 mcg-50 mcg Powder See Instructions, 60 blister(s), Refill(s) 4, 1 puff BID rinse mouth and throat after use, [facility] #[id number], 160, cm, 04/20/22 9:20:00 EDT, Height/Length Dosing, 97.5, kg, 04/20/22 9:20:00 EDT, Weight Dosing Start Date: 05/06/22 Status: Ordered Start: 03-22-2022 take 1 puff(s) by [facility] twice daily Advair 250 mcg-50 mcg Powder See Instructions, 60 blister(s), Refill(s) 4, 1 puff BID rinse mouth and throat after use, [facility] #[id number], 160, cm, 12/09/21 13:46:00 EDT, Height/Length Dosing, 99.4, kg, 12/09/21 13:46:00 EDT, Weight Dosing Start Date: 03/22/22 Status: Ordered Start: 03-18-2022 Fluticasone Pr opion-Salmeterol (Advair Diskus) 250-50 mcg/dose blister with device Active 1 INH INHALATION Twice daily March 17, 2022 11:00pm Start: 09-22-2022 Fluticasone Pr opion-Salmeterol (Advair Diskus) 250-50 mcg/dose blister with device Active 1 INH INHALATION Twice daily March 18, 2022 12:00am Start: 12-15-2020 take 1 puff(s) by mo uth twice daily Advair 250 mcg-50 mcg Powder See Instructions, 60 blister(s), Refill(s) 4, 1 puff BID rinse mouth and throat after use, [facility] #[id number], 160, cm, 12/15/20 9:17:00 EDT, Height/Length Dosing, 103.4, kg, 12/15/20 9:17:00 EDT, Weight Dosing Start Date: 12/15/20 Status: Ordered Start: 10-24-2019 take 1 puff(s) by in halation twice daily fluticasone-salmeterol (ADVAIR DISKUS) 250-50 MCG/DOSE AEPB Inhale 1 puff into the lungs 2 times daily 3 Inhaler 3 10/24/2019 Active lift chair (7 sources) Start: 04-18-2023 lift chair lif t chair, See Instructions, 1 EA, 0, Lift Chair, Supply Start Date: 04/18/23 Status: Ordered meloxicam 15 mg oral tablet (11 sources) Nonsteroidal Anti-inflammatory Drug Start: 03-18-2022 End: 03-22-2022 Meloxicam Discontinued MG TABLET March 18, 2022 12:00am March 22, 2022 10:15am Start: 09-10-2021 take 1 tablet by alicia once daily meloxicam (MOBIC) 15 MG tablet TAKE 1 TABLET BY MOUTH DAILY 0 09/10/2021 Active Peg 535-Iohqfeelkbsd-Hxswjfl n (Eye Drop Tears) 1-0.2-0.2 % Drops (9 sources) Start: 03-22-2022 End: 08-11-2022 Peg 225-Nnjpaoialzfl-Pgwaldy n (Eye Drop Tears) 1-0.2-0.2 % Drops Discontinued 1 - 2 DROPS EYE-BOTH As Directed March 22, 2022 12:00am August 11, 2022 11:58am Start: 03-22-2022 End: 08-11-2022 Peg 559-Uedsamofqcea-Vhmoxwb n (Eye Drop Tears) 1-0.2-0.2 % Drops Discontinued 1 - 2 DROPS EYE-BOTH As Directed March 21, 2022 11:00pm August 11, 2022 10:58am Start: 03-22-2022 Peg 400-Hyprom ellose-Glycerin (Eye Drop Tears) 1-0.2-0.2 % Drops Active 1 - 2 DROPS EYE-BOTH As Directed March 21, 2022 11:00pm Start: 03-22-2022 Peg 400-Hyprom ellose-Glycerin (Eye Drop Tears) 1-0.2-0.2 % Drops Active 1 - 2 DROPS EYE-BOTH As Directed March 22, 2022 12:00am predniSONE 20 mg oral tablet (2 sources) Start: 10-12-2023 take 1 tablet by mouth once daily predniSONE 20 mg Tab 20 mg = 1 tab(s), Oral, Daily, Take 20 mg po QID x 3 days, then 20 mg po TID x 3 days, then 20 mg po BID x 3 days, then one tablet po QD x 3 days, # 30 tab(s), Refills(s) 0, Pharmacy: [facility] #[id number], 161, cm, 10/12/23 8:32:00 EDT, Height/Length Dosing, 91.2, kg, 10/12/23 8:32:00 EDT, Weight Dosing Start Date: 10/12/23 Status: Ordered Start: 04-18-2023 predniSONE Ref ills(s) 0 Start Date: 04/18/23 Status: Ordered triamcinolone acetonide 40 mg/ml injectable suspension (20 sources) Corticosteroid Start: 01-07-2022 Kenalog-40 May, 40 mg Start: 01-07-2022 Problems Active Problems Problem Classification Problem Date Documented Date Episodic/Chronic Anxiety disorders (17 sources) Generalized anxiety disorder; Translations: [Generalized anxiety disorder] Onset: 04-20-2022 06-03-2020 Chronic Asthma (20 sources) Moderate persistent asthma; Translations: [Uncomplicated moderate persistent asthma] Onset: 08-24-2016 Resolved: 05-16-2018 05-16-2018 Chronic Coma; stupor; and brain damage (13 sources) Excessive daytime sleepiness - normal night sleep; Translations: [Somnolence] Episodic Esophageal disorders (15 sources) Gastroesophageal reflux disease 08-13-2021 Chronic Essential hypertension (20 sources) Essential hypertension; Translations: [Essential (primary) hypertension] Onset: 06-27-2015 09-03-2015 Chronic Genitourinary symptoms and ill-defined conditions (1 source) Endometrium thickened; Translations: [Endometrial thickening on ultrasound] Episodic Joint disorders and dislocations; trauma-related (14 sources) Derangement of left knee; Translations: [Unspecified internal derangement of left knee] Chronic Mood disorders (20 sources) Moderate depression; Translations: [Major depressive disorder] Onset: 04-20-2022 06-03-2020 Chronic Comment on above: added per 04/13/2023 query response. Osteoarthritis (20 sources) Primary gonarthrosis, bilateral; Translations: [Bilateral primary osteoarthritis of knee] Onset: 04-18-2023 Chronic Other aftercare (1 source) Long-term current use of drug therapy; Translations: [Other usp (current) drug therapy] Onset: 05-02-2023 Episodic Other bone disease and musculoskeletal deformities (6 sources) Chondromalacia, left knee Episodic Other connective tissue disease (1 source) Rupture of tendon of biceps, long head; Translations: [Labral tear of long head of biceps tendon, left, initial encounter] Episodic Other connective tissue disease (5 sources) Impingement syndrome of right shoulder Onset: 01-07-2022 Resolved: 03-09-2022 Episodic Other connective tissue disease (18 sources) Full thickness rotator cuff tear; Translations: [Complete rotator cuff tear or rupture of right shoulder, not specified as traumatic] Episodic Other connective tissue disease (5 sources) Complete rotator cuff tear or rupture of right shoulder, not specified as traumatic Onset: 03-09-2022 Resolved: 03-09-2022 Episodic Other female genital disorders (1 source) Postcoital bleeding; Translations: [Postcoital and contact bleeding] Chronic Other female genital disorders (20 sources) Cervical intraepithelial neoplasia grade 2; Translations: [Moderate cervical dysplasia] 03-29-2018 Episodic Other lower respiratory disease (2 sources) Snoring Episodic Other nervous system disorders (3 sources) Carpal tunnel syndrome of left wrist; Translations: [Carpal tunnel syndrome, left upper limb] Chronic Other nervous system disorders (3 sources) Chronic pain; Translations: [Other chronic pain] Onset: 12-09-2021 Chronic Other nervous system disorders (12 sources) Carpal tunnel syndrome; Translations: [Carpal tunnel syndrome, unspecified upper limb] Chronic Other nervous system disorders (1 source) Carpal tunnel syndrome, unspecified upper limb Chronic Other nervous system disorders (1 source) Postoperative pain ; Translations: [Other acute postprocedural pain] Episodic Other non-traumatic joint disorders (18 sources) Derangement of right shoulder joint; Translations: [Other specific joint derangements of right shoulder, not elsewhere classified] Chronic Other non-traumatic joint disorders (2 sources) Pain in right knee; Translations: [Pain in joint, lower leg] Episodic Other non-traumatic joint disorders (1 source) Pain in left knee; Translations: [Pain in left knee] Episodic Other non-traumatic joint disorders (1 source) Shoulder pain; Translations: [Pain in right shoulder] Episodic Other non-traumatic joint disorders (1 source) Pain of left elbow joint; Translations: [Pain in left elbow] Onset: 03-14-2023 Episodic Other nutritional; endocrine; and metabolic disorders (20 sources) Body mass index 30+ - obesity; Translations: [Adult BMI > 30] Onset: 08-24-2016 08-24-2016 Chronic Other nutritional; endocrine; and metabolic disorders (6 sources) Obese class II; Translations: [Body mass index (BMI) 39.0-39.9, adult] Onset: 10-12-2021 Chronic Other nutritional; endocrine; and metabolic disorders (20 sources) Obesity; Translations: [Other obesity due to excess calories] Onset: 10-12-2021 Chronic Other nutritional; endocrine; and metabolic disorders (1 source) Obesity, unspecified Chronic Other nutritional; endocrine; and metabolic disorders (9 sources) Morbid obesity; Translations: [Morbid (severe) obesity due to excess calories] Onset: 04-28-2023 Chronic Comment on above: Added per 03/10/2023 query response from Lucy Schumacher, per outpatient [facility] policy. Other screening for suspected conditions (not mental disorders or infectious disease) (12 sources) Endometrium thickened 01-17-2020 Chronic Residual codes; unclassified (19 sources) Patient encounter status; Translations: [Encounter for cosmetic surgery] Onset: 10-19-2017 Resolved: 05-16-2018 05-16-2018 Episodic Residual codes; unclassified (15 sources) Difficulty sleeping 01-05-2021 Episodic Residual codes; unclassified (14 sources) Chronic back pain 12-09-2021 Episodic Residual codes; unclassified (9 sources) Other specified postprocedural states Episodic Residual codes; unclassified (2 sources) Past history of procedure; Translations: [Other specified postprocedural states] Onset: 04-20-2022 Episodic Spondylosis; intervertebral disc disorders; other back problems (20 sources) Sciatica; Translations: [Backache] Onset: 12-09-2021 03-06-2021 Episodic Superficial injury; contusion (1 source) Contusion of left knee, initial encounter Episodic Unclassified (16 sources) Patient encounter status; Translations: [Encounter for cosmetic surgery] Onset: 10-19-2017 Resolved: 05-16-2018 05-16-2018 Unclassified (1 source) Chondromalacia, left knee; Translations: [Chondromalacia, left knee] Onset: 12-21-2022 Unclassified (1 source) Pain in left knee; Translations: [Pain in left knee] Onset: 09-24-2022 Unclassified (1 source) Dietary counseling and surveillance; Translations: [Dietary counseling and surveillance] Onset: 08-09-2022 Unclassified (1 source) Pain in right shoulder; Translations: [Pain in right shoulder] Onset: 07-06-2022 Unclassified (1 source) Unspecified internal derangement of left knee; Translations: [Unspecified internal derangement of left knee] Onset: 05-21-2022 Unclassified (1 source) Pain in right knee; Translations: [Pain in right knee] Onset: 05-10-2022 Unclassified (1 source) Strain of muscle(s) and tendon(s) of the rotator cuff of right shoulder, initial encounter; Translations: [Strain of muscle(s) and tendon(s) of the rotator cuff of right shoulder, initial encounter] Onset: 03-31-2022 Unclassified (1 source) Encounter for preprocedural laboratory examination; Translations: [Encounter for preprocedural laboratory examination] Onset: 03-22-2022 Unclassified (1 source) Other specific joint derangements of right shoulder, not elsewhere classified; Translations: [Other specific joint derangements of right shoulder, not elsewhere classified] Onset: 02-24-2022 Past or Other Problems Problem Classification Problem Date Documented Da te Episodic/Chronic Other connective tissue disease (5 sources) Other enthesopathies, not elsewhere classified; Translations: [Other enthesopathies, not elsewhere classified] Onset: 01-07-2022 Resolved: 03-09-2022 Episodic Other non-traumatic joint disorders (2 sources) Pain in right shoulder Onset: 01-07-2022 Resolved: 03-09-2022 Episodic Other non-traumatic joint disorders (4 sources) Pain in left knee; Translations: [Pain in left knee] Onset: 05-10-2022 Episodic Results Test Name Value Interpretation Reference Range Facil ity Ambulatory Visit Summaryon 1 08-15-2023 Ambulatory Visit Summary Ambulatory Visit Summary DASHA MEJIA :1970 Visit Date:06/14/2024 Ambulatory Visit Instructions Your Diagnosis Body aches Your Care Team Attending Physician - MELANY SCHUMACHER CNP Primary Care Physician - MELANY SCHUMACHER CNP This Is Your Medications List Misc Prescription (Handicap placard) Misc Prescription (lift chair) albuterol (Albuterol (Eqv-Proventil HFA) 90 mcg/inh inhalation aerosol) diclofenac topical (Voltaren Arthritis Pain 1% topical gel) fluticasone-salmet ricci (Wixela Inhub 250 mcg-50 mcg inhalation powder) ibuprofen (ibuprofen 800 mg Tab) Procedures Performed Tear of biceps tendon (11/24/2018), Appendectomy, Bilateral tubal ligation, Meniscectomy of knee, Rotator cuff, Rotator cuff, Tonsillectomy. Discharge Vitals Temperature (Oral) 36.8 ???C Heart Rate (Peripheral) 104 Respiratory Rate 20 Blood Pressure 128/82 Height 161.0 cm Height 63 in Weight 92.5 kg Weight 203.927 lb BMI 35.69 What to do next Scheduled Follow-Up Appointments Tuesday 8:00 AM EDT Where: [place] [id number]- Medications What How Much When Why Instructions Unchanged albuterol (Albuterol (Eqv-Proventil HFA) 90 mcg/ inh inhalation aerosol) See instructions INHALE 1 PUFF BY MOUTH EVERY 4 HOURS NEEDED FOR WHEEZING OR SHORTNESS OF BREATH Unchanged diclofenac topical (Voltaren Arthritis Pain 1% topical gel) 2 Gram Topical 4 times a day Arthritis Unchanged fluticasone-salmet ricci (Wixela Inhub 250 mcg-50 mcg inhalation powder) See instructions INHALE 1 PUFF BY MOUTH TWICE DAILY. RINSE MOUTH AND THROAT AFTER USE Unchanged ibuprofen (ibuprofen 800 mg Tab) See instructions TAKE 1 TABLET BY MOUTH THREE TIMES DAILY Unchanged Misc Prescription (Handicap placard) See instructions Use as directed. Expiration 5 years Unchanged Misc Prescription (lift chair) See instructions Osteoarthritis Chronic back pain History of rotator cuff surgery Other chronic pain Lift Chair Allergies traMADol (Tachycardia, Nausea) Problems Ongoing - Any problem that you are currently receiving treatment for. Anxiety, generalized Carpal tunnel syndrome of left wrist Chronic back pain GERD (gastroesophageal reflux disease) History of rotator cuff surgery Hypertension Major depressive disorder, single episode in full remission Mild persistent asthma Obesity due to excess calories Sciatica Sleep difficulties Historical - Any problem that you are no longer receiving treatment for. BMI 39.0-39.9,adult Moderate depressive disorder Morbid obesity due to excess calories Obesity due to cancer therapy Patient Survey You may receive a survey via text or e-mail asking about your office visit. Please share your experience with us by completing your survey. We appreciate your feedback and thank you for choosing us for your care. [facility] Family Medicine Office/Clini c [place] 06-14-2024 Family Medicine Office/Clinic Note Family Medicine Office/Clinic Note HPI Staff Dasha is a 54 year old female presenting with Onset: started Tuesday Body aches: yes Chills: yes Fatigue: yes Cough: yes Sore throat: yes Fever: no Headache: yes Nasal congestion: yes Loss of taste: no Loss of smell: no Eye itching/watering: no both watery Sneezing: yes SOB: yes Known Exposure: no Tried: Day quil Night quil OTC cough syrup COVID tested IO today- NEG FLU tested IO today- POSITIVE COVID tested at home on June 13- I have reviewed and verified the staff HPI to be accurate for this encounter. History of Present Illness Patient presents today for an acute visit for evaluation of headache, cough, & body aches x 2 days. She reports headache, body ache, chills, fatigue, sore throat, & nasal congestion. She states she took Dayquil yesterday and Nyquil last PM with no relief. She reports her boyfriend has the same thing.She states she tested for COVID at home and it was negative. Review of Systems PHQ Score Initial Depression Screen Score: 2 SCORE Constitutional: no fever, mild chills, no sweats, mild weakness Skin: no Jaundice, no rash, no lesions, nopetechiae ENMT: no ear pain, mild sore throat, mild congestion, no hoarseness Respiratory: no shortness of breath, no cough, no orthopnea, no wheezing Cardiovascular: no chest pain, no palpitations, no edema Additional ROS info: Except as noted in the above Review of Systems and in the History of Present Illness all other systems have been reviewed and are negative or noncontributory. Physical Exam Vitals & Measurements T: 36.8 ???C(Oral) HR: 104(Peripheral) RR: 20 BP: 128/82 SpO2: 97% HT: 63 in HT: 161.0 cm WT: 92.5 kg WT: 203.927 lb BMI: 35.69 General: alert, no acute distress ENMT: TM's clear, oral mucosa moist, no pharyngeal erythema or exudate Cardiovascular: regular rate and rhythm, normal peripheral perfusion Respiratory: Lungs CTA, respirations non labored Extremities: no deformity, no trauma Neurological: oriented x 4, LOC appropriate for age, CN II-XII intact, motor strength equal & normal bilaterally, sensation equal & normal bilaterally, speech normal Assessment/Plan 1. Influenza (J11.1: Influenza due to unidentified influenza virus with other respiratory manifestations) POC Influenza positive Increase fluids Recommend OTC acetaminophen or ibuprofen f/u if no improvement in 3-5 days Ordered: oseltamivir, 75 mg = 1 cap(s), Oral, BID, X 5 day(s), # 10 cap(s), Refills(s) 0, Pharmacy: [facility]/pharmacy #[id number], 161, cm, 06/14/24 10:48:00 EST, Height/Length Dosing, 92.5, kg, 06/14/24 10:48:00 EST, Weight Dosing 2. Body aches (R52: Pain, unspecified) POC Influenza positive Increase fluids Recommend OTC acetaminophen or ibuprofen f/u if no improvement in 3-5 days Ordered: oseltamivir, 75 mg = 1 cap(s), Oral, BID, X 5 day(s), # 10 cap(s), Refills(s) 0, Pharmacy: [facility]/pharmacy #[id number], 161, cm, 06/14/24 10:48:00 EST, Height/Length Dosing, 92.5, kg, 06/14/24 10:48:00 EST, Weight Dosing Influenza Type A&B POC 93103 Rapid COVID POC 96783 Follow-up No qualifying data available Patient Education Influenza, Adult, [id number] Problem List/Past Medical History Ongoing Anxiety, generalized Carpal tunnel syndrome of left wrist Chronic back pain GERD (gastroesophageal reflux disease) History of rotator cuff surgery Hypertension Major depressive disorder, single episode in full remission Mild persistent asthma Obesity due to excess calories Sciatica Sleep difficulties Historical BMI 39.0-39.9,adult Moderate depressive disorder Morbid obesity due to excess calories 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 Medications Albuterol (Eqv-Proventil HFA) 90 mcg/inh inhalation aerosol, See Instructions Handicap placard, See Instructions ibuprofen 800 mg Tab, See Instructions lift chair, See Instructions Tamiflu 75 mg Cap, 75 mg= 1 cap(s), Oral, BID Voltaren Arthritis Pain 1% topical gel, 2 gm, Topical, QID, 2 refills Wixela Inhub 250 mcg-50 mcg inhalation powder, See Instructions Allergies traMADol (Tachycardia, Nausea) Social History Alcohol - Denies Alcohol Use, 04/20/2022 Never., 06/14/2024 Substance Abuse - Denies Substance Abuse, 12/07/2019 Never., 06/14/2024 Tobacco - Denies Tobacco Use, 07/07/2020 Never (less than 100 in lifetime) Tobacco Use:., 06/14/2024 Family History Diabetes mellitus type 2: Mother and Sister. Hypertension: Mother. Stroke: Father. Immunizations Vaccine Date Status Comments influenza virus vaccine, inactivated - Not Given Patient Refuses Patient refused influenza virus vaccine, inactivated - Not Given Postpone due to refusal influenza virus vaccine, inactivated - Not Given Postpone due to refusal influenza virus vaccine, (more content not included)... Normal [facility] Comment on above: Result Comment: Elec tronically Signed By: MELANY SCHUMACHER CNP\.br\Date and Time Signed: 06/14/24 11:08 EST Ambulatory Visit Summaryon 0 01-04-2024 Ambulatory Visit Summary Ambulatory Visit Summary DASHA MEJIA :1970 Visit Date:01/04/2024 Ambulatory Visit Instructions Your Diagnosis Encounter for weight management Obesity due to excess calories Non-smoker BMI 34.0-34.9,adult Your Care Team Attending Physician - MELANY SCHUMACHER CNP Primary Care Physician - MELANY SCHUMACHER CNP This Is Your Medications List phentermine (Adipex-P 37.5 mg Tab) Contact prescribing physician if questions or concerns Misc Prescription (Handicap placard) Misc Prescription (lift chair) albuterol (albuterol HFA 90 mcg/inh MDI) diclofenac topical (Voltaren Arthritis Pain 1% topical gel) fluticasone-salmet ricci (Wixela Inhub 250 mcg-50 mcg inhalation powder) ibuprofen (ibuprofen 800 mg Tab) Procedures Performed Tear of biceps tendon (11/24/2018), Appendectomy, Bilateral tubal ligation, Meniscectomy of knee, Rotator cuff, Rotator cuff, Tonsillectomy. Discharge Vitals Height 161 cm Height 63 in Weight 87.4 kg Weight 192.28 lb BMI 33.72 What to do next Scheduled Follow-Up Appointments Tuesday 1:40 PM EDT With: MELANY SCHUMACHER CNP Where: [facility] [place] [facility] [address] [place] [phone] \.br\ Medications\.br\ What How Much When Why Instructions\.br\ Unchanged phentermine (Adipex-P 37.5 mg Tab) 1 Tablets By Mouth Every day Obesity due to excess calories Pickup at [facility] #[id number]\.br\ Unchanged albuterol (albuterol HFA 90 mcg/ inh MDI) 1 Puffs Inhalation Every 4 hours as needed for for wheezing/shortnes s of breath Contact prescribing physician if questions or concerns \.br\ Unchanged diclofenac topical (Voltaren Arthritis Pain 1% topical gel) 2 Gram Topical 4 times a day Arthritis Contact prescribing physician if questions or concerns \.br\ Unchanged fluticasone-salme terol (Wixela Inhub 250 mcg-50 mcg inhalation powder) 1 Inhalation Inhalation 2 times a day INHALE 1 PUFF BY MOUTH TWICE DAILY. RINSE MOUTH AND THROAT AFTER USE Contact prescribing physician if questions or concerns \.br\ Unchanged ibuprofen (ibuprofen 800 mg Tab) 1 Tablets By Mouth 3 times a day Morbid obesity due to excess calories BMI 35.0-35.9,adult Contact prescribing physician if questions or concerns \.br\ Unchanged Misc Prescription (Handicap placard) See instructions Use as directed. Expiration 5 years Contact prescribing physician if questions or concerns \.br\ Unchanged Misc Prescription (lift chair) See instructions Osteoarthritis Chronic back pain History of rotator cuff surgery Other chronic pain Lift Chair Contact prescribing physician if questions or concerns \.br\ Pharmacy Information\.br\ [facility] #[id number]: [address] [place], [place] [phone]\.br\ Allergies\.br\ traMADol (Tachycardia, Nausea)\.br\ Problems\.br\ Ongoing - Any problem that you are currently receiving treatment for.\.br\ Anxiety, generalized\.br\ Carpal tunnel syndrome of left wrist\.br\ Chronic back pain\.br\ GERD (gastroesophageal reflux disease)\.br\ History of rotator cuff surgery\.br\ Hypertension\.br\ Major depressive disorder, single episode in full remission\.br\ Mild persistent asthma\.br\ Obesity due to excess calories\.br\ Sciatica\.br\ Sleep difficulties\.br\ Historical - Any problem that you are no longer receiving treatment for.\.br\ BMI 39.0-39.9,adult\. 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 Please share your experience with us by completing your survey. We appreciate your feedback and thank you for choosing us for your care.\.br\ Education Materials\.br\ Exercising to Lose Weight\.br\ Getting regular exercise is important for everyone. It is especially important if you are overweight. Being overweight increases your risk of heart disease, stroke, diabetes, high blood pressure, and several types of cancer. Exercising, and reducing the calories you consume, can help you lose weight and improve fitness and health.\.br\ Exercise can be moderate or vigorous intensity. To lose weight, most people need to do a certain amount of moderate or vigorous-intensit y exercise each week.\.br\ How can exercise affect me?\.br\ You lose weight when you exercise enough to burn more calories than you eat. Exercise also reduces body fat and builds muscle. The more muscle you have, the more calories you burn. Exercise also:\.br\ ? \.br\ Improves mood.\.br\ ? \.br\ Reduces stress and tension.\.br\ ? \.br\ Improves your overall fitness, flexibility, and endurance.\.br\ ? \.br\ Increases bone strength.\.br\ Moderate-intensit y exercise\.br\ \.br\ Moderate-intensit y exercise is any activity that gets you moving enough to burn at least three times more energy (calories) than if you were sitting.\.br\ Examples of moderate exercise include:\.br\ ? \.br\ Walking a mile in 15 minutes.\.br\ ? \.br\ Doing light yard work.\.br\ ? \.br\ Biking at an easy pace.\.br\ Most people should get at least 150 minutes of moderate-intensit y exercise a week to maintain their body weight.\.br\ Vigorous-intensit y exercise\.br\ Vigorous-intensit y exercise is any activity that gets you moving enough to burn at least six times more calories than if you were sitting. When you exercise at this intensity, you should be working hard enough that you are not able to carry on a conversation.\.br \ Examples of vigorous exercise include:\.br\ ? \.br\ Running.\.br\ ? \.br\ Playing a team sport, such as football, basketball, and soccer.\.br\ ? \.br\ Jumping rope.\.br\ Most people should get at least 75 minutes a week of vigorous exercise to maintain their body weight.\.br\ What actions can I take to lose weight?\.br\ The amount of exercise you need to lose weight depends on:\.br\ ? \.br\ Your age.\.br\ ? \.br\ The type of exercise.\.br\ ? \.br\ Any health conditions you have.\.br\ ? \.br\ Your overall physical ability.\.br\ Talk to your health care provider about how much exercise you need and what types of activities are safe for you.\.br\ Nutrition\.br\ \.br\ ? \.br\ Make changes to your diet as told by your health care provider or diet and livestock nutrition territory manager (dietitian). This may include:\.br\ ? \.br\ Eating fewer calories.\.br\ ? \.br\ Eating more protein.\.br\ ? \.br\ Eating less unhealthy fats.\.br\ ? \.br\ Eating a diet that includes fresh fruits and vegetables, whole grains, low-fat dairy products, and lean protein.\.br\ ? \.br\ Avoiding foods with added fat, salt, and sugar.\.br\ ? \.br\ Drink plenty of water while you exercise to prevent dehydration or heat stroke.\.br\ Activity\.br\ ? \.br\ Choose an activity that you enjoy and set realistic goals. Your health care provider can help you make an exercise plan that works for you.\.br\ ? \.br\ Exercise at a moderate or vigorous intensity most days of the week.\.br\ ? \.br\ The intensity of exercise may vary from person to person. You can tell how intense a workout is for you by paying attention to your breathing and heartbeat. Most people will notice their breathing and heartbeat get faster with more intense exercise.\.br\ ? \.br\ Do resistance training twice each week, such as:\.br\ ? \.br\ Push-ups.\.br\ ? \.br\ Sit-ups.\.br\ ? \.br\ Lifting weights.\.br\ ? \.br\ Using resistance bands.\.br\ ? \.br\ Getting short amounts of exercise can be just as helpful as long, structured periods of exercise. If you have trouble finding time to exercise, try doing these things as part of your daily routine:\.br\ ? \.br\ Get up, stretch, and walk around every 30 minutes throughout the day.\.br\ ? \.br\ Go for a walk during your lunch break.\.br\ ? \.br\ Park your car farther away from your destination.\.br\ ? \.br\ If you take public transportation, get off one stop early and walk the rest of the way.\.br\ ? \.br\ Make phone calls while standing up and walking around.\.br\ ? \.br\ Take the stairs instead of elevators or escalators.\.br\ ? \.br\ Wear comfortable clothes and shoes with good support.\.br\ ? \.br\ Do not exercise so much that you hurt yourself, feel dizzy, or get very short of breath.\.br\ Where to find more information\.br\ ? \.br\ U.S. Department of Health and Human Services: www.hhs.gov\.br\ ? \.br\ Centers for Disease Control and Prevention: www.cdc.gov\.br\ Contact a health care provider:\.br\ ? \.br\ Before starting a new exercise program.\.br\ ? \.br\ [facility] Family Medicine Office/Clini c Noteon 01-04-2024 Family Medicine Office/Clinic Note Family Medicine Office/Clinic Note HPI Staff Dasha is a 53 year old female presenting 1 month follow up Weight management: Started Phentermine on 11/09/23 Sleeping well:Yes, 6-8 hours trouble falling asleep and staying asleep Chest pain:No Tremors:No Headaches:No Heart fluttering:No Blurred Vision:No Beginning weight: 200.6 Previous weight: 194 Today's weight: 192.6 Questions/Concerns : History of Present Illness Patient presents today in f/u for weight management. Patient has lost 2.5 pounds since her last visit. She is not exercising as much as she should but is using the leg lead application architect at home. Patient reports no adverse effects to the medication. She is here for a medication refill today. Review of Systems PHQ Score Initial Depression Screen Score: 0 SCORE Constitutional: no fever, no chills, no sweats, no weakness Respiratory: no shortness of breath, no cough, no orthopnea, no wheezing Cardiovascular: no chest pain, no palpitations, no edema Additional ROS info: Except as noted in the above Review of Systems and in the History of Present Illness all other systems have been reviewed and are negative or noncontributory. Physical Exam Vitals & Measurements HT: 63 in HT: 161 cm WT: 87.4 kg WT: 192.28 lb BMI: 33.72 General: alert, no acute distress ENMT: TM's clear, oral mucosa moist, no pharyngeal erythema or exudate Cardiovascular: regular rate and rhythm, normal peripheral perfusion Respiratory: Lungs CTA, respirations non labored Extremities: no deformity, no trauma Neurological: oriented x 4, LOC appropriate for age speech normal Assessment/Plan 1. Encounter for weight management (Z76.89: Persons encountering health services in other specified circumstances) Continue phentermine 37.5 mg one capsule in the AM Discussed with patient she will need to lose 20 pounds in 3 months and she will need to show monthly progess to continue the medication Continue with daily exercise Encouraged daily portion control OARRS reviewed and found to be appropriate. f/u in 4 weeks 2. Obesity due to excess calories (E66.09: Other obesity due to excess calories) Continue phentermine 37.5 mg one capsule in the AM Discussed with patient she will need to lose 20 pounds in 3 months and she will need to show monthly progess to continue the medication Continue with daily exercise Encouraged daily portion control OARRS reviewed and found to be appropriate. f/u in 4 weeks Ordered: phentermine, 37.5 mg = 1 tab(s), Oral, Daily, # 30 tab(s), Refills(s) 0, Pharmacy: [facility] #[id number], 161, cm, 01/04/24 13:52:00 EDT, Height/Length Dosing, 87.4, kg, 01/04/24 13:52:00 EDT, Weight Dosing 3. Non-smoker (Z78.9: Other specified health status) continue as a non-smoker 4. BMI 34.0-34.9,adult (Z68.34: Body mass index [BMI] 34.0-34.9, adult) Continue phentermine 37.5 mg one capsule in the AM Discussed with patient she will need to lose 20 pounds in 3 months and she will need to show monthly progess to continue the medication Continue with daily exercise Encouraged daily portion control OARRS reviewed and found to be appropriate. f/u in 4 weeks Orders: fluticasone-salmet ricci, See Instructions, 60 blister(s), Refill(s) 4, Inhale 1 puff by mouth twice daily. Rinse mouth and throat after use, [facility] #[id number], 161, cm, 10/12/23 8:32:00 EDT, Height/Length Dosing, 91.2, kg, 10/12/23 8:32:00 EDT, Weight Dosing Follow-up With When Contact Information MELANY SCHUMACHER CNP, FAM Within 4 weeks [address] [place] [address] Business (1) Additional Instructions: Weight management Patient Education Exercising to Lose Weight Problem List/Past Medical History Ongoing Anxiety, generalized Carpal tunnel syndrome of left wrist Chronic back pain GERD (gastroesophageal reflux disease) History of rotator cuff surgery Hypertension Major depressive disorder, single episode in full remission Mild persistent asthma Obesity due to excess calories Sciatica Sleep difficulties Historical BMI 39.0-39.9,adult Moderate depressive disorder Morbid obesity due to excess calories 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 Medications Adipex-P 37.5 mg Tab, 37.5 mg= 1 tab(s), Oral, Daily albuterol HFA 90 mcg/inh MDI, 1 puff(s), Inhalation, q4hr, PRN, 6 refills Handicap placard, See Instructions ibuprofen 800 mg Tab, 800 mg= 1 tab(s), Oral, TID, 1 refills lift chair, See Instructions Voltaren Arthritis Pain 1% topical gel, 2 gm, Topical, QID, 2 refills Wixela Inhub 250 mcg-50 mcg inhalation powder, 1 inh, Inhalation, BID Allergies traMADol (Tachycardia, Nausea) Social History Alcohol - Denies Alcohol Use, 04/20/2022 Household alcohol concerns: No., 08/12/2022 Substance Abuse - (more content not included)... Normal [facility] Comment on above: Result Comment: Elec tronically Signed By: MELANY SCHUMACHER CNP\Date and Time Signed: 01/04/24 14:15 EDT Coding Summary.on 12-21-2023 Coding Summary. ZOELFftm89IYg2uZf+ PGhlYWQ+VT8SRNGtL3 0spFTtbP3iK0QSQMdY SywgQVBQTElOSyIgbm RcKN3yqWSjUIIs IC8+SJ4qEEFyPrzvbI Irw4V6xBQ3Q44rvn0n NAkfmMN2CKMlIxNsyx zzt9zqgDo2HChjYrse OyBt PMJjrT58VGG0mB14Ac 94sZEpvOPgh3odrUs7 IgLhJHXbTSE5iHfnTG brx3CfEQSbT41jwOKy c2U6 IGNvbGxhcHNlOyBlbX Z8sV3nJWtzaumxy0qh bofcXwi4qo64kDRvq7 B0tSJ5O3DnjlV5TDUb bGQg HeqozLKVtD2sxwymi2 xvcjogIzAwMDAwMDt0 SHq8GGRdbJjlYpZfDR 93HWH9IIBlqcHfN1Iz LWFs xWexJrZ9y4C4Xa3CL8 GOUwkcW1UTYUUFKGfs dGQ+SQ60uj32J8OeVy vvJuz8BRGtLUI6kYQ9 aD0n CUIjJLqhb9E9bFA9A1 ZzaqEarn4ga7kdWWOt MXxyP84rvKRpt7K2CH OhgQA3UYBziDtbIzUm aG93 Oyc+BACjaRwtq4QxVr nwy4zqh1ngpXg7Fmne PPPkrjHunPbnVAO5e5 HwBu6kXKVqxMX3xPZ7 aD0i RwHrQiL3YNplG559Mo WrsCPtOoswX10lQ3Pe dXA+RCZoFyf4QLVwaY ocXI6kP7TwRNVkdvfm bGVm rRxtXX5hGMEneshhYU HwwV0xUMVnP1d1HcTu UvH9DQyaQ0JfRELykh ecOs27rQ7hVkGrPuB4 MGlu Z0WhkoD6JSFkwRXvYG drMOI5Y13bt9H0BIYq MQUyGAM8oQW5yE0ovN lnbjogbGVmdDsgdmVy dGlj DAftRLtjE300TYDcpI snPkNvZGluZyBEYXRl OiAgMDYvMjYvMjAyND wvdGQ+ZCXoCBK7zZwr PSAn pETxTCfwHk7joHbvzE hqSA1hLJTlylfiYQAu dF9xDMMoxYXxfRjsTT 0vZGFosggae059QkJd MHB0 ECDgaYAhQ1VeyB6zPe MkJTRfHRHqE7MhaGSg JTfmC789KKyqUjF8JA PwzfRvV3EyJRNwdVkq OiB0 o3K9Mk3Bv5GimnnuY3 RhdHVzOiAgRmluYWw8 D2WsNxscbRF+PC90YW GyOL72LKa2TAO9nBaq PSdi ETDuL4CzsQ1tEeQqTT RkZGRkOyc+PHRhYmxl IHdpZHRoPScxMDAlJy AxtEjiPU8pLs7fAACf LWNv dNhxbVVmYoKqa6cvRG PhPWiaKK5nwAstL8Zq zCG3AXPms1j4Sc43X6 0dO3XhnDW+PGNvbCB3 aWR0 bB2uWtViVhK6TGjxT0 08QwRabJWjWcdes9nb r2rqgMa9IiB6HXYpyu AcuHleMMT5x0ObPt57 Y29s IHdpZHRoPSIxNSUiIH LkoBjedt5gtE6nOr2+ MZIytPO7rHQ3yN9aEp FwYqL2DZmeC434HuOu cCIv Mdgyy6rvi0ngzSu6Pm IwJSIgdmFsaWduPSJ0 q3ZsHy44W7QsdBqau8 IsWad6li25jOUsg8U4 bGU9 L5AcDVPlzivchAWbeS asVT4zNSGlzgwfOMBp zX1eBTUjT2r1PuPfJc U3PYesU8MqvrB5GGSb bGQg QLWyjSCOhK8wyfpml4 xvcjogIzAwMDAwMDt0 XNh7OJLjsGncSoMxGS U6BhZ8LLG5dJXxrL4b bGln sinokD4mVvc+UGF0aW VcsGBDAU8aNalboPK+ BXIoSUF2yLknYJmvZN JyyB1vEQIbZ7h7SbFn LjA1 CPvrB1YzvwN0EWYzrN FqFDGxoDOHxT5etdhq h4fjiegaHvSeCTVaII j2KPy5DYYgfZhnSpMy ZWZ0 KzF3EYU3tAIymE1mlC fxvosvdV2qJzm+Qmly nGflTWT2KGh7N7CcVj l0BQVobLoeDK0gsXUx ZGlu Ut1qxKbnkXooLS0aXP Aypxana591IyEmc6bh HBPqiLXbKTuvXBC4Z1 6xb9S7NJMuGOUpYLM4 dGV4 vC5fiMsahoznwEBjnV sgdmVydGljYWwtYWxp M864APTviFixEuDlJO k8U6CpHzi6NNTzzZim ZT0n tDFrOXisYh0tkBcurE paTB6cTFDabeicu057 MzWkp0ncCLKwaMJkQB reLBM9A82gy6K8LLZo MDAw NQG7aOK9fJ9bcBrrrj ogbGVmdDsgdmVydGlj ABsnMQowQ336ZMXmvJ ksOuJjyJa6F3JrGhb2 ZCBz wXvpWM0bpMTlTLayUm 5imDrbgTdpWN1oUOPc eudgv008WfHjq0lvUX FdeAPbGCkiGMI6J72z b3I6 AGMlMFQrLIA4qZB0yD 1hbGlnbjogbGVmdDsg dmVydGljYWwtYWxpZ2 46IHRvcDsnPlBhdGll bnQg CTttNDe3Y8RrLofvoC I+UB76OGVvFL83oTGl xDPsq1uqjBi7SrYsTV JoSKB5mGxkIEbij5Oc ZXIt S16koMEhx3Z7XJPivL jlqAZcIfXjiWL7rI2r BEayjvcmp7ftwsecHa vqs6usuv79pL60M21n IHdp ZHRoPSIzMCUiIHZhbG xjae7dfE0cJj8+PGNv vKU4jZE8jJ5fLNBoMj S1DMonZ755DgAqdNYf Pjxj a1fnb5mziPo4XgL5BR YosgQtiCpoGSU6h0Ln Wd31B79yQSymVFVrGF TuGWFoAQCiwWlrzr4p dG9w Ii8+ZJQpoFS5lKY8iK 2nPhPwRnN9OFgxF570 OlUayJTqOhqxJ67aG3 JvdXA+MQGzWan5EZPk dHls OZ2jlWMvVXmtIb7dNW H6CfNzEsJwPFjxA4Zg HTIdssoeqhgyuNE6VN UhFOQiuX54Hj5rwPqc MTBw mRMRyQ5ahkiej1ldzf fcExLzBMPlSOb2ZTc4 GQGcxNemWoHbJDT8Ct J7UNH3lEVgkE2vuUzc bjog jZ9pF7VbRHJfaxfePa 72qT0fSmJyEhA3NFhy Oyc+QklMTEVSLCBLUk yIYYuJGKs9F7XxXxx5 ZCBz sIdoHM4taBFpXSgdKg 6mtBsnnMylSF7nPSBd qjvmRYHuiJ5pNYGewO RhpMhuBX0qFWTrupfs b250 NcVnTWW8CHBpcIHdT1 UcuM4sApYtDWMcNKIg Q3EwjWYdCZvkX687NJ jaCkZ4UIAsriZoQ5Fe LWFs hPunGhU6x0L2Qu7kJP 6uVX5cIJC3EZ41CC19 fLGsr3U1cMO7P8FqAZ YphvtczyjszBQ3DRKp MDUw xV19nXNmBVvkMc5gg2 E5h508FUZiJRBwsU30 Ec1cdWleMPOcvVSVoU 1ssuydx0pyjyndFuIu MDAw UAl1FFc8ZUArgYotYr WkLHZ9HiN9TGT1rKNq wV4egKvqixscaA9nWo c+ETLbMAEndbQ0N5Tv Pjx0 NKUbqXwsDI4bmMXuYB rbKe0evOcaaYeqFP8u HRNkcejtBMNkaO2mCH NuiLMzeTekAA5cBGDe bjtm v185OqWbWZS5KYOjkA TiK2TptY5sCuZoSAYz DMMaX1PcmGHlOXbcV0 18KOhwUfM6DBPhwzVw Y2Fs LQHqlVvzXzE5l6E7Rl 8VWQ1ovEY5K9SkLzk8 EKPdyPccON7jjRWoCB myCu9muDqjdEsrSB2u NTBp tegeBFOseC7pFMYddT OkvXzuTO7aMZCzvyjw q065AsDqOTV6HIVjrD OhM0HydY3kEfGaBIZc MDAw F3SgcGNjIJgcK188BA qmGrV5ONEvobHhE9Eo FDNpdGyzLqT7d5G1Ck 6XuHTnFLGfQE00SZ02 ZD48 R7NwDubcxWEhjKC+PH RhYmxlIHdpZHRoPScx PCUhIxPucBnaDG3xNe 9yZGVyLWNvbGxhcHNl OiBj j0uxVLEyEGnxNB0hvV kiY1QbyLR1RQMpb1l3 Wy80P07oG6GrsZL+PG JepQO4gGD2lN8pHtEt IiB2 VXwyF257YsDtiIMfSc vkl6rnw9skzXu7UnBu HMFpfvJboGepWKO5r9 ShRs55N72sNDcrELDo PSIy XMSzNDGyeJemjl9pzY 9wIi8+REFvqLL0nXX8 lJ6cNlZpTzI1PXnpP3 26BkXcsYUpHisyL78s Z3Jv dXA+QLQiLqt3FIBsiP bnVO9cbALsZOrbWm1s NIV3LyFdBaWePCouZ4 BhZGRpbmctcmlnaHQ6 IDAu NXHbfK78Rl5tmTomYk 2mZWMgZHZ4DMMaqTCx O0SbmG3bSwUtFONmUZ YlR0SrxTTwNVqnU572 IGxl XgR6DYJzaoMqT9QaQC BunUcuXjF3z4G0Rj5R tPzbtIKcFC7qEqQwKN o2Y4EpWcg4ZYSvwNub ZT0n kPRhYAthVd2dwUtimN seBW6oTYRltixjy633 CnNas3itZXMgyJTcPD krFVH4I50jz1J8LIZh MDAw XCZ0uDA4yL2gtAffim ogbGVmdDsgdmVydGlj ZBbjYQqiK424WWLipC kbVrETIte2T3YkWam1 ZCBz eEnjRZ2ndLXbMQyySq 5awWxutPzwRA2dEUSt rorqn280ReUvb8kmFV AoaJSmUGycOCH0H25l b3I6 LEMnATZqETF0vEL4yO 1hbGlnbjogbGVmdDsg dmVydGljYWwtYWxpZ2 09SVNvwZljQt6GCaa4 L3Rk Ara6VMKcaWesUB0nrH MrZNyfHp9viCdczZgj TQ9pMLLvgtiht345Ey Ylg6yqQVCpiAEcCAgs ZXM7 C30gm5L0JCXgSDNySZ W9sXV1yO3ygLzhfgia bGVmdDsgdmVydGljYW fvYAgwV928VPJoqCea PlBh eWVyOjwvdGQ+PC90cj 95A7LhDpnfVve1OTDl GSO9qSF1hS1oMAHiNX qoq3L3xSF3X6DqsiSw ci1j w6xoVUBcHXgxC (more content not included)... Normal [facility] XR Knee Complete 4+ Views Le fton 12-15-2023 XR Knee Complete 4+ Views Left Exam Date/Time: 12/13/2023 12:16 EDT Reason for Exam: Pain, Non Traumatic;Pain, Non Traumatic Report IMPRESSION MILD OSTEOARTHRITIS OF THE LEFT KNEE. NO ACUTE FRACTURE. CLINICAL HISTORY: Pain, Non Traumatic, Pain, Non Traumatic COMPARISON: NONE. FINDINGS: 4 views of the left knee including standing weightbearing AP views are submitted. Standing weightbearing AP views of the show mild narrowing of the medial joint space compartments. There is mild marginal osteophytes noted. There is some minimal degenerative changes of the patellofemoral joint. Small effusion noted. No focal bony abnormality no dislocation. No acute fracture Ordering Provider: MELANY SCHUMACHER FINAL REPORT Dictated: 12/15/2023 2:51 pm Hiram Fraser Signed (Electronic Signature): 12/15/2023 2:51 pm Signed by: Hiram Fraser Transcribed by: VICK Technologist: MOHINI Technical Comments Radiation Dose: Ka,r in mGy = na DAP = na Normal [facility] Consent for Treatmenton 11-25 Consent for Treatment [id number] Normal [facility] Ambulatory Visit Summaryon 0 12-07-2023 Ambulatory Visit Summary [facility] Woodard :1970 Visit Date:12/07/2023 Ambulatory Visit Instructions Your Diagnosis Obesity due to excess calories, Class 1 obesity due to excess calories in adult Knee pain, left BMI 34.0-34.9,adult Nonsmoker Your Care Team Attending Physician - MELANY SCHUMACHER CNP Primary Care Physician - MELANY SCHUMACHER CNP This Is Your Medications List phentermine (Adipex-P 37.5 mg Tab) Contact prescribing physician if questions or concerns Misc Prescription (Handicap placard) Misc Prescription (lift chair) albuterol (albuterol HFA 90 mcg/inh MDI) diclofenac topical (Voltaren Arthritis Pain 1% topical gel) fluticasone-salmet ricci (Advair 250 mcg-50 mcg Powder) fluticasone-salmet ricci (Advair Diskus 250 mcg-50 mcg inhalation powder) ibuprofen (ibuprofen 800 mg Tab) Procedures Performed Tear of biceps tendon (11/24/2018), Appendectomy, Bilateral tubal ligation, Meniscectomy of knee, Rotator cuff, Rotator cuff, Tonsillectomy. Discharge Vitals Temperature (Oral) 36.7 ?C Heart Rate (Peripheral) 72 Respiratory Rate 16 Blood Pressure 130/84 Height 161 cm Height 63 in Weight 88.5 kg Weight 194.7 lb BMI 34.14 What to do next Scheduled Follow-Up Appointments Tuesday 8:00 AM EDT With: MELANY SCHUMACHER CNP Where: [facility] Normal [address] [place] [address]- \.br\ You Need to Schedule the Following Appointments\.br\ Follow Up with MELANY SCHUMACHER CNP [facility] When: Within 4 weeks\.br\ Comments:\.br\ Weight management\.br\ Where:\.br\ [address] [place] [address]\.br\ [place] [address]\.br\ Business (1)\.br\ \.br\ You Need to Complete the Following\.br\ XR Knee Complete 4+ Views Left, 12/07/23, Routine, Order for future visit, Transport Mode: Ambulatory, Reason: Pain, Non Traumatic, No, Knee pain, left, pp_set_radiology_ subspecialty, [facility]\.br\ Medications\.br\ What How Much When Why Instructions\.br\ Unchanged phentermine (Adipex-P 37.5 mg Tab) 1 Tablets By Mouth Every day Obesity due to excess calories Pickup at [facility] #[id number]\.br\ Unchanged albuterol (albuterol HFA 90 mcg/ inh MDI) 1 Puffs Inhalation Every 4 hours as needed for for wheezing/shortnes s of breath Contact prescribing physician if questions or concerns \.br\ Unchanged diclofenac topical (Voltaren Arthritis Pain 1% topical gel) 2 Gram Topical 4 times a day Arthritis Contact prescribing physician if questions or concerns \.br\ Unchanged fluticasone-salme terol (Advair 250 mcg-50 mcg Powder) See instructions 1 puff BID rinse mouth and throat after use Contact prescribing physician if questions or concerns \.br\ Unchanged fluticasone-salme terol (Advair Diskus 250 mcg-50 mcg inhalation powder) See instructions Inhale 1 puff by mouth twice daily. Rinse mouth and throat after use Contact prescribing physician if questions or concerns \.br\ Unchanged ibuprofen (ibuprofen 800 mg Tab) 1 Tablets By Mouth 3 times a day Morbid obesity due to excess calories BMI 35.0-35.9,adult Contact prescribing physician if questions or concerns \.br\ Unchanged Misc Prescription (Handicap placard) See instructions Use as directed. Expiration 5 years Contact prescribing physician if questions or concerns \.br\ Unchanged Misc Prescription (lift chair) See instructions Osteoarthritis Chronic back pain History of rotator cuff surgery Other chronic pain Lift Chair Contact prescribing physician if questions or concerns \.br\ Pharm[facility] Information\.br\ [id number] [address] [place], [place] [id number] [phone]\.br\ Allergies\.br\ traMADol (Tachycardia, Nausea)\.br\ Problems\.br\ Ongoing - Any problem that you are currently receiving treatment for.\.br\ Anxiety, generalized\.br\ Carpal tunnel syndrome of left wrist\.br\ Chronic back pain\.br\ GERD (gastroesophageal reflux disease)\.br\ History of rotator cuff surgery\.br\ Hypertension\.br\ Major depressive disorder, single episode in full remission\.br\ Mild persistent asthma\.br\ Obesity due to excess calories\.br\ Sciatica\.br\ Sleep difficulties\.br\ Historical - Any problem that you are no longer receiving treatment for.\.br\ BMI 39.0-39.9,adult\. 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 Please share your experience with us by completing your survey. We appreciate your feedback and thank you for choosing us for your care.\.br\ Education Materials\.br\ Exercising to Lose Weight\.br\ Getting regular exercise is important for everyone. It is especially important if you are overweight. Being overweight increases your risk of heart disease, stroke, diabetes, high blood pressure, and several types of cancer. Exercising, and reducing the calories you consume, can help you lose weight and improve fitness and health.\.br\ Exercise can be moderate or vigorous intensity. To lose weight, most people need to do a certain amount of moderate or vigorous-intensit y exercise each week.\.br\ How can exercise affect me?\.br\ You lose weight when you exercise enough to burn more calories than you eat. Exercise also reduces body fat and builds muscle. The more muscle you have, the more calories you burn. Exercise also:\.br\ ? \.br\ Improves mood.\.br\ ? \.br\ Reduces stress and tension.\.br\ ? \.br\ Improves your overall fitness, flexibility, and endurance.\.br\ ? \.br\ Increases bone strength.\.br\ Moderate-intensit y exercise\.br\ \.br\ Moderate-intensit y exercise is any activity that gets you moving enough to burn at least three times more energy (calories) than if you were sitting.\.br\ Examples of moderate exercise include:\.br\ ? \.br\ Walking a mile in 15 minutes.\.br\ ? \.br\ Doing light yard work.\.br\ ? \.br\ Biking at an easy pace.\.br\ Most people should get at least 150 minutes of moderate-intensit y exercise a week to maintain their body weight.\.br\ Vigorous-intensit y exercise\.br\ Vigorous-intensit y exercise is any activity that gets you moving enough to burn at least six times more calories than if you were sitting. When you exercise at this intensity, you should be working hard enough that you are not able to carry on a conversation.\.br \ Examples of vigorous exercise include:\.br\ ? \.br\ Running.\.br\ ? \.br\ Playing a team sport, such as football, basketball, and soccer.\.br\ ? \.br\ Jumping rope.\.br\ Most people should get at least 75 minutes a week of vigorous exercise to maintain their body weight.\.br\ What actions can I take to lose weight?\.br\ The amount of exercise you need to lose weight depends on:\.br\ ? \.br\ Your age.\.br\ ? \.br\ The type of exercise.\.br\ ? \.br\ Any health conditions you have.\.br\ ? \.br\ Your overall physical ability.\.br\ Talk to your health care provider about how much exercise you need and what types of activities are safe for you.\.br\ Nutrition\.br\ \.br\ ? \.br\ Make changes to your diet as told by your health care provider or diet and livestock nutrition territory manager (dietitian). This may include:\.br\ ? \.br\ Eating fewer calories.\.br\ ? \.br\ Eating more protein.\.br\ ? \.br\ Eating less unhealthy fats.\.br\ ? \.br\ Eating a diet that includes fresh fruits and vegetables, whole grains, low-fat dairy products, and lean protein.\.br\ ? \.br\ Avoiding foods with added fat, salt, and sugar.\.br\ ? \.br\ Drink plenty of water while you exercise to prevent dehydration or heat stroke.\.br\ Activity\.br\ ? \.br\ Choose an activity that you enjoy and set realistic goals. Your health care provider can help you make an exercise plan that works for you.\.br\ ? \.br\ Exercise at a moderate or vigorous intensity most days of the week.\.br\ ? \.br\ The intensity of exercise may vary from person to person. You can tell how intense a workout is for you by paying attention to your breathing and heartbeat. Most people will notice their breathing and heartbeat get faster with more intense exercise.\.br\ ? \.br\ Do resistance training twice each week, such as:\.br\ ? \.br\ Push-ups.\.br\ ? \.br\ Sit-ups.\.br\ ? \.br\ Lifting weights.\.br\ ? \.br\ Using resistance bands.\.br\ ? \.br\ Getting short amounts of exercise can be just as helpful as long, structured periods of exercise. If you have trouble finding time to exercise, try doing these things as part of your daily routine:\.br\ ? \.br\ Get up, stretch, and walk around every 30 minutes throughout the day.\.br\ ? \.br\ Go for a walk during your lunch break.\.br\ ? \.br\ Park your car farther away from your destination.\.br\ ? \.b [facility] Family Medicine Office/Clini c Ke[place] 12-07-2023 Family Medicine Office/Clinic Note HPI Staff Dasha is a 53 year old female presenting for 1 month follow up Weight management: Started Phentermine on 11/09/23 Sleeping well:no, dog keeps her up all night to go potty Chest pain:No Tremors:No Headaches:No Heart fluttering:No Blurred Vision:No Beginning weight: 200.64 Previous weight: same as above Today's weight: 194 lbs Questions/Concerns : had surgery about 2 years ago on left knee and instead of going back to surgeon can you order xray or MRI to see what's going. Had a bilateral release but when she has to lift her leg it's tight and hard to move. Also discussed her left elbow in past ? bursitis, it flares, should she just continue ibuprofen for it Had US on left foot, found cyst in there, had steroid shot helps a little bit (Dr Fernandez in [place]) Needs her adipex refilled History of Present Illness Patient presents today in f/u for weight management. She has tried Adipex in the past and had some success. She stopped it in July 2023 for failure to make progress. She is wanting to restart the medication to assist with weight lose. She reports she has started walking. Her goal weight would be 170. She currently is at 194.7 pounds/BMI 34.14. She has lost 5.94 pounds since her last visit. She reports she has had no adverse effects of the medication. She reports she is having some increased left knee pain. She states in the past she has had steroid injections, and gel injections with ortho. She states she was told she needed to have the knee replaced but has chosen not to have that done. She is wanting an Xray today of the left knee. Review of Systems PHQ Score Initial Depression Screen Score: 0 SCORE Constitutional: no fever, no chills, no sweats, no weakness Skin: no Jaundice, no rash, no lesions, nopetechiae Respiratory: no shortness of breath, no cough, no orthopnea, no wheezing Cardiovascular: no chest pain, no palpitations, no edema Musculoskeletal: no back pain, no trauma; Left knee pain Neurologic: no headache, no dizziness, no numbness, no weakness Psychiatric: no sleeping problems, no irritability, no mood swings/depression. Additional ROS info: Except as noted in the above Review of Systems and in the History of Present Illness all other systems have been reviewed and are negative or noncontributory. Physical Exam Vitals & Measurements T: 36.7 ?C(Oral) HR: 72(Peripheral) RR: 16 BP: 130/84 SpO2: 97% HT: 63 in HT: 161 cm WT: 88.5 kg WT: 194.7 lb BMI: 34.14 General: alert, no acute distress Cardiovascular: regular rate and rhythm, normal peripheral perfusion Respiratory: Lungs CTA, respirations non labored Extremities: no deformity, no trauma Neurological: oriented x 4, LOC appropriate for age, CN II-XII intact, motor strength equal & normal bilaterally, sensation equal & normal bilaterally, speech normal Assessment/Plan 1. Obesity due to excess calories, (E66.09: Other obesity due to excess calories)Class 1 obesity due to excess calories in adult Continue phentermine 37.5 mg one capsule in the AM Discussed with patient she will need to lose 20 pounds in 3 months and she will need to show monthly progess to continue the medication Continue with daily exercise Encouraged daily portion control OARRS reviewed and found to be appropriate. f/u in 4 weeks Ordered: phentermine, 37.5 mg = 1 tab(s), Oral, Daily, # 30 tab(s), Refills(s) 0, Pharmacy: [id number], 161, cm, 12/07/23 8:10:00 EDT, Height/Length Dosing, 88.5, kg, 12/07/23 8:10:00 EDT, Weight Dosing Body Mass Index (BMI) documented 3008F Current tobacco non-user 1036F Depression Screening Negative 3352F Most recent diastolic blood pressure 80-89 mm Hg 3079F Systolic BP 130-139 mm Hg (Most Recent) 3075F 2. Knee pain, left (M25.562: Pain in left knee) Encouraged to contact Ortho MD for next steps in her treatment Ordered: Body Mass Index (BMI) documented 3008F Current tobacco non-user 1036F Depression Screening Negative 3352F Most recent diastolic blood pressure 80-89 mm Hg 3079F Systolic BP 130-139 mm Hg (Most Recent) 3075F XR Knee Complete 4+ Views Left 3. BMI 34.0-34.9,adult (Z68.34: Body mass index [BMI] 34.0-34.9, adult) The standard range for ages 18 and older is >=18.5 and < 25 kg/m2. Your BMI today was above this range, this falls in the overweight to obese category and there are medical benefits to weight loss. We can offer counselling, referral, and/or medical support in addressing this problem. Your BMI and weight management will be followed at subsequent visits. Ordered: Body Mass Index (BMI) documented 3008F Current tobacco non-user 1036F Depression Screening Negative 3352F Most recent diastolic blood pressure 80-89 mm Hg 3079F Systolic BP 130-139 mm Hg (Most Recent) 3075F 5. Nonsmoker (Z78.9: Other specified health status) Encouraged to continue as a non-smoker Ordered: Body Mass Index (BMI) documented 3008F Current tobacco non-user 1036F Depression Sc (more content not included)... Normal [facility] Comment on above: Result Comment: Elec tronically Signed By: MELANY SCHUMACHER CNP\.gallo\Date and Time Signed: 12/07/23 10:57 EDT Patient Educationon 12-07-19 Patient Education Orthopedics Exercises for Chronic Knee Pain Chronic knee pain is pain that lasts longer than 3 months. For most people with chronic knee pain, exercise and weight loss is an important part of treatment. Your health care provider may want you to focus on: ? Strengthening the muscles that support your knee. This can take pressure off your knee and lessen pain. ? Preventing knee stiffness. ? Maintaining or increasing how far you can move your knee. ? Losing weight (if this applies) to take pressure off your knee, decrease your risk for injury, and make it easier for you to exercise. Your health care provider will help you develop an exercise program that matches your needs and physical abilities. Below are simple, low-impact exercises you can do at home. Ask your health care provider or a physical therapist how often you should do your exercise program and how many times to repeat each exercise. General safety tips Follow these safety tips for exercising with chronic knee pain: ? Get your health care provider's approval before doing any exercises. ? Start slowly and stop any time an exercise causes pain. ? Do not exercise if your knee pain is flaring up. ? Warm up first. Stretching a cold muscle can cause an injury. Do 5?10 minutes of easy movement or light stretching before beginning your exercise routine. ? Do 5?10 minutes of low-impact activity (like walking or cycling) before starting strengthening exercises. ? Contact your health care provider any time you have pain during or after exercising. Exercise may cause discomfort but should not be painful. It is normal to be a little stiff or sore after exercising. Stretching and [id number] exercises Front thigh stretch 1. Stand up straight and support your body by holding on to a chair or resting one hand on a wall. 2. With your legs straight and close together, bend one knee to lift your heel up toward your buttocks. 3. Using one hand for support, grab your ankle with your free hand. 4. Pull your foot up closer toward your buttocks to feel the stretch in front of your thigh. 5. Hold the stretch for 30 seconds. Repeat times. Complete this exercise times a day. Back thigh stretch 1. Sit on the floor with your back straight and your legs out straight in front of you. 2. Place the palms of your hands on the floor and slide them toward your feet as you bend at the hip. 3. Try to touch your nose to your knees and feel the stretch in the back of your thighs. 4. Hold for 30 seconds. Repeat times. Complete this exercise times a day. Calf stretch 1. Stand facing a wall. 2. Place the palms of your hands flat against the wall, arms extended, and lean slightly against the wall. 3. Get into a lunge position with one leg bent at the knee and the other leg stretched out straight behind you. 4. Keep both feet facing the wall and increase the bend in your knee while keeping the heel of the other leg flat on the ground. 5. You should feel the stretch in your calf. Hold for 30 seconds. Repeat times. Complete this exercise times a day. Strengthening exercises Straight leg lift 1. Lie on your back with one knee bent and the other leg out straight. 2. Slowly lift the straight leg without bending the knee. 3. Lift until your foot is about 12 inches (30 cm) off the floor. 4. Hold for 3?5 seconds and slowly lower your leg. Repeat times. Complete this exercise times a day. Single leg dip 1. Stand between two chairs and put both hands on the backs of the chairs for support. 2. Extend one leg out straight with your body weight resting on the heel of the standing leg. 3. Slowly bend your standing knee to dip your body to the level that is comfortable for you. 4. Hold for 3?5 seconds. Repeat times. Complete this exercise times a day. Hamstring curls 1. Stand straight, knees close together, facing the back of a chair. 2. Hold on to the back of a chair with both hands. 3. Keep one leg straight. Bend the other knee while bringing the heel up toward the buttock until the knee is bent at a 90-degree angle (right angle). 4. Hold for 3?5 seconds. Repeat times. Complete this exercise times a day. Wall squat 1. Stand straight with your back, hips, and head against a wall. 2. Step forward one foot at a time with your back still against the wall. 3. Your feet should be 2 feet (61 cm) from the wall at shoulder width. Keeping your back, hips, and head against the wall, slide down the wall to as close of a sitting position as you can get. 4. Hold for 5?10 seconds, then slowly slide back up. Repeat times. Complete this exercise times a day. Step-ups 1. Step up with one foot on (more content not included)... Normal [facility] Ambulatory Visit Summaryon 0 11-09-2023 Ambulatory Visit Summary DASHA MEJIA :1970 Visit Date:11/09/2023 Ambulatory Visit Instructions Your Diagnosis Foot pain, left Obesity due to excess calories Your Care Team Attending Physician - MELANY SCHUMACHER CNP Primary Care Physician - MELANY SCHUMACHER CNP This Is Your Medications List Misc Prescription (Handicap placard) Misc Prescription (lift chair) albuterol (albuterol HFA 90 mcg/inh MDI) diclofenac topical (Voltaren Arthritis Pain 1% topical gel) fluticasone-salmet ricci (Advair 250 mcg-50 mcg Powder) fluticasone-salmet ricci (Advair Diskus 250 mcg-50 mcg inhalation powder) ibuprofen (ibuprofen 800 mg Tab) predniSONE (predniSONE 20 mg Tab) Procedures Performed Tear of biceps tendon (11/24/2018), Appendectomy, Bilateral tubal ligation, Meniscectomy of knee, Rotator cuff, Rotator cuff, Tonsillectomy. Discharge Vitals Heart Rate (Peripheral) 75 Blood Pressure 142/90 Height 161.0 cm Height 63 in Weight 91.2 kg Weight 200.64 lb BMI 35.18 What to do next Scheduled Follow-Up Appointments Tuesday 8:00 AM EDT With: MELANY SCHUMACHER CNP Where: [facility] [place] [facility] [address] [place] [phone] \.br\ Medications\.br\ What How Much When Why Instructions\.br\ Unchanged albuterol (albuterol HFA 90 mcg/ inh MDI) 1 Puffs Inhalation Every 4 hours as needed for for wheezing/shortnes s of breath\.br\ Unchanged diclofenac topical (Voltaren Arthritis Pain 1% topical gel) 2 Gram Topical 4 times a day Arthritis\.br\ Unchanged fluticasone-salme terol (Advair 250 mcg-50 mcg Powder) See instructions 1 puff BID rinse mouth and throat after use \.br\ Unchanged fluticasone-salme terol (Advair Diskus 250 mcg-50 mcg inhalation powder) See instructions Inhale 1 puff by mouth twice daily. Rinse mouth and throat after use \.br\ Unchanged ibuprofen (ibuprofen 800 mg Tab) 1 Tablets By Mouth 3 times a day Morbid obesity due to excess calories BMI 35.0-35.9,adult\. br\ Unchanged Misc Prescription (Handicap placard) See instructions Use as directed. Expiration 5 years \.br\ Unchanged Misc Prescription (lift chair) See instructions Osteoarthritis Chronic back pain History of rotator cuff surgery Other chronic pain Lift Chair \.br\ Unchanged predniSONE (predniSONE 20 mg Tab) 1 Tablets By Mouth Every day Contact dermatitis Take 20 mg po QID x 3 days, then 20 mg po TID x 3 days, then 20 mg po BID x 3 days, then one tablet po QD x 3 days \.br\ Allergies\.br\ traMADol (Tachycardia, Nausea)\.br\ Problems\.br\ Ongoing - Any problem that you are currently receiving treatment for.\.br\ Anxiety, generalized\.br\ Carpal tunnel syndrome of left wrist\.br\ Chronic back pain\.br\ GERD (gastroesophageal reflux disease)\.br\ History of rotator cuff surgery\.br\ Hypertension\.br\ Major depressive disorder, single episode in full remission\.br\ Mild persistent asthma\.br\ Obesity due to excess calories\.br\ Sciatica\.br\ Sleep difficulties\.br\ Historical - Any problem that you are no longer receiving treatment for.\.br\ BMI 39.0-39.9,adult\. 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 Please share your experience with us by completing your survey. We appreciate your feedback and thank you for choosing us for your care.\.br\ \.br\ [facility] Medicine Office/Clini c Noteon 11-09-2023 Family Medicine Office/Clinic Note Chief Complaint foot pain and weight loss HPI Staff Patient presents for weight loss follow up. Weight management Sleeping well:Yes, 6-8 hours Chest pain:No Tremors:No Headaches:No Heart fluttering:No Blurred Vision:No Starting Weight: 91.2kg/ Starting BMI; Pain characteristics: Pain location: left foot Intensity:4/10 Medication used: ibuprofen 800 mg Prednisone helped temporarily BP 142/90 pulse ox 91%-has metallic nail irish on. Patient denies SOB. History of Present Illness Patient presents today in f/u for weight management. She has tried Adipex in the past and had some success. She stopped it in July 2023 for failure to make progress. She is wanting to restart the medication to assist with weight lose. She reports she has started walking. Her goal weight would be 170. She currently is at 200.64 pounds/BMI 35.18. Additionally, she has chronic foot pain and is requesting to see a cutter v groove. Review of Systems PHQ Score Initial Depression Screen Score: 0 SCORE Constitutional: no fever, no chills, no sweats, no weakness Skin: no Jaundice, no rash, no lesions, nopetechiae ENMT: no ear pain, no sore throat, no congestion, no hoarseness Respiratory: no shortness of breath, no cough, no orthopnea, no wheezing Cardiovascular: no chest pain, no palpitations, no edema Gastrointestinal: no nausea, no vomiting, no diarrhea, no GI bleeding Genitourinary: no dysuria, no hematuria, no discharge, no pain Musculoskeletal: no back pain, no trauma; chronic left foot pain Neurologic: no headache, no dizziness, no numbness, no weakness Psychiatric: no sleeping problems, no irritability, no mood swings/depression. Additional ROS info: Except as noted in the above Review of Systems and in the History of Present Illness all other systems have been reviewed and are negative or noncontributory. Physical Exam Vitals & Measurements HR: 75(Peripheral) BP: 142/90 SpO2: 91% HT: 63 in HT: 161.0 cm WT: 91.2 kg WT: 200.64 lb BMI: 35.18 General: alert, no acute distress Cardiovascular: regular rate and rhythm, normal peripheral perfusion Respiratory: Lungs CTA, respirations non labored Extremities: no deformity, no trauma; no trauma to the left foot Neurological: oriented x 4, LOC appropriate for age speech normal Assessment/Plan 1. Foot pain, left (M79.672: Pain in left foot) Discussed with patient Xray results Continue with Ibuprofen 800 mg one tablet every 8 hours as needed for pain Referral to cutter v [facility] completed today Ordered: [facility] [place] 2. Obesity due to excess calories (E66.09: Other obesity due to excess calories) Start phentermine 37.5 mg one capsule in the AM Discussed with patient she will need to lose 20 pounds in 3 months and she will need to show monthly progess to continue the medication Continue with daily exercise Encouraged daily portion control OARRS reviewed and found to be appropriate. f/u in 4 weeks Ordered: phentermine, 37.5 mg = 1 tab(s), Oral, Daily, # 30 tab(s), Refills(s) 0, Pharmacy: [id number], 161, cm, 11/09/23 8:04:00 EDT, Height/Length Dosing, 91.2, kg, 11/09/23 8:04:00 EDT, Weight Dosing [facility] [place] Referral Follow-up No qualifying data available Problem List/Past Medical History Ongoing Anxiety, generalized Carpal tunnel syndrome of left wrist Chronic back pain GERD (gastroesophageal reflux disease) History of rotator cuff surgery Hypertension Major depressive disorder, single episode in full remission Mild persistent asthma Obesity due to excess calories Sciatica Sleep difficulties Historical BMI 39.0-39.9,adult Moderate depressive disorder Morbid obesity due to excess calories 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 Medications Adipex-P 37.5 mg Tab, 37.5 mg= 1 tab(s), Oral, Daily Advair 250 mcg-50 mcg Powder, See Instructions, 4 refills Advair Diskus 250 mcg-50 mcg inhalation powder, See Instructions, 4 refills albuterol HFA 90 mcg/inh MDI, 1 puff(s), Inhalation, q4hr, PRN, 6 refills Handicap placard, See Instructions ibuprofen 800 mg Tab, 800 mg= 1 tab(s), Oral, TID, 1 refills lift chair, See Instructions predniSONE 20 mg Tab, 20 mg= 1 tab(s), Oral, Daily, Not taking: complete Voltaren Arthritis Pain 1% topical gel, 2 gm, Topical, QID, 2 refills Allergies traMADol (Tachycardia, Nausea) Social History Alcohol - Denies Alcohol Use, 04/20/2022 Household alcohol concerns: No., 08/12/2022 Substance Abuse - Denies Substance Abuse, 12/07/2019 Household substance abuse concerns: No., 08/12/2022 Tobacco - Denies Tobacco Use, 07/07/2020 Never (less than 100 in lifetime) Tobacco Use:. Never Smokeless Tobacco Use:. Household tobacco concerns: No., 11/09/2023 Family History Diabetes mellit (more content not included)... Normal [facility] Comment on above: Result Comment: Elec tronically Signed By: MELANY SCHUMACHER CNP\.br\Date and Time Signed: 11/09/23 11:04 EDT Physician Referralon 024 Physician Referral [id number] [facility] [place] Mamm Screen w/CAD if perf and 3D Bilon 10-18-2023 [place] Mamm Screen w/CAD if perf and 3D Amauri Exam Date/Time: 10/13/2023 11:48 EDT Reason for Exam: Z12.31 Report IMPRESSION: BIRADS 1 NEGATIVE, NORMAL INTERVAL FOLLOW-UP. EXAMINATION: [place] Mamm Screen w/CAD if perf and 3D Amauri CLINICAL HISTORY: Z12.31 COMPARISON: Priors dating back to 2018. RESULT: Digital mammography and 3D tomosynthesis of bilateral breasts was performed. Almost entirely fatty. There is no suspicious mass, asymmetry, architectural distortion, or calcification. Vascular calcifications: Absent. CAD analysis was performed and used in the interpretation. Dense Breast: No Follow-up: 12 MONTH RECALL. Board Certified Radiologists. Accredited by the ACR and FDA. MAMMOGRAPHY IS VERY IMPORTANT TO YOUR HEALTH. THE [employer] GUIDELINES RECOMMEND THAT WOMEN 40 YEARS OF AGE AND OLDER SHOULD HAVE A MAMMOGRAM EVERY YEAR. A REMINDER LETTER WILL BE SENT AT THE APPROPRIATE TIME. THIS FACILITY UTILIZES A REMINDER SYSTEM TO ENSURE ALL PATIENTS RECEIVE REMINDER NOTIFICATIONS AT THE APPROPRIATE TIME BASED ON THE RECOMMENDATIONS OF THIS EXAM. THIS INCLUDES REMINDERS FOR ROUTINE SCREENING MAMMOGRAMS, DIAGNOSTIC MAMMOGRAMS IN WHICH THE PATIENT IS ASKED TO RETURN FOR ADDITIONAL VIEWS, OR OTHER BREAST IMAGING INTERVENTIONS WHEN APPROPRIATE. THE PATIENT WILL BE PLACED IN THE APPROPRIATE REMINDER SYSTEM INCLUDING A REMINDER AT THE APPROPRIATE TIME FOR ANY PENDING ADDITIONAL VIEWS. Report Ordering Provider: REFERRAL, SELF FINAL REPORT Dictated: 10/18/2023 1:50 pm Arthur Gilbert MD Signed (Electronic Signature): 10/18/2023 1:50 pm Signed by: Arthur Gilbert MD Transcribed by: VICK Technologist: AP Assessment: BI-RADS Category 1-Negative Recommendation: Normal interval follow-up Normal [facility] XR Foot 3+ Views Lefton 09-25 XR Foot 3+ Views Left Exam Date/Time: 10/13/2023 11:59 EDT Reason for Exam: M79.672 pain in left foot;Pain, Non Traumatic Report IMPRESSION: NO ACUTE OSSEOUS ABNORMALITY. EXAM: XR Foot 3+ Views Left COMPARISON: None available HISTORY: Foot pain TECHNIQUE: AP, lateral and oblique views of the foot obtained. FINDINGS: No acute fracture or dislocation. Joint spaces are preserved. Small plantar calcaneal enthesophyte. Soft tissues are within normal limits. Ordering Provider: MELANY SCHUMACHER FINAL REPORT Dictated: 10/14/2023 5:48 pm Vladimir Jimenes DO Signed (Electronic Signature): 10/14/2023 5:48 pm Signed by: Vladimir Jimenes DO Transcribed by: VICK Technologist: KEITH Technical Comments Radiation Dose: Kar in mGy = na DAP = na Normal [facility] Consent for Treatmenton 09-25 Consent for Treatment [id number] Normal [facility] Ambulatory Visit Summaryon 0 10-12-2023 Ambulatory Visit Summary DASHA MEJIA :1970 Visit Date:10/12/2023 Ambulatory Visit Instructions Your Diagnosis Contact dermatitis Left foot pain Encounter for weight management BMI 35.0-35.9,adult Class 1 obesity due to excess calories in adult Nonsmoker Your Care Team Attending Physician - MELANY SCHUMACHER CNP Primary Care Physician - MELANY SCHUMACHER CNP This Is Your Medications List Misc Prescription (Handicap placard) Misc Prescription (lift chair) albuterol (albuterol HFA 90 mcg/inh MDI) diclofenac topical (Voltaren Arthritis Pain 1% topical gel) fluticasone-salmet ricci (Advair 250 mcg-50 mcg Powder) ibuprofen (ibuprofen 800 mg Tab) Procedures Performed Tear of biceps tendon (11/24/2018), Appendectomy, Bilateral tubal ligation, Meniscectomy of knee, Rotator cuff, Rotator cuff, Tonsillectomy. Discharge Vitals Temperature (Oral) 36.8 ?C Heart Rate (Peripheral) 86 Respiratory Rate 16 Blood Pressure 124/82 Height 161 cm Height 63 in Weight 91.2 kg Weight 200.64 lb BMI 35.18 What to do next Scheduled Follow-Up Appointments 2023 11:30 AM EDT With: Where: [facility] Tuesday 8:00 AM EDT With: MELANY SCHUMACHER CNP Where: [facility] [address] [place] [phone] \.br\ You Need to Complete the Following\.br\ XR Foot 3+ Views Left, 10/12/23, Routine, Order for future visit, Transport Mode: Ambulatory, Reason: Pain, Non Traumatic, No, Left foot pain, pp_set_radiology_ subspecialty, [facility]\.br\ Medications\.br\ What How Much When Why Instructions\.br\ Unchanged albuterol (albuterol HFA 90 mcg/ inh MDI) 1 Puffs Inhalation Every 4 hours as needed for for wheezing/shortnes s of breath\.br\ Unchanged diclofenac topical (Voltaren Arthritis Pain 1% topical gel) 2 Gram Topical 4 times a day Arthritis\.br\ Unchanged fluticasone-salme terol (Advair 250 mcg-50 mcg Powder) See instructions 1 puff BID rinse mouth and throat after use \.br\ Unchanged ibuprofen (ibuprofen 800 mg Tab) 1 Tablets By Mouth 3 times a day Morbid obesity due to excess calories BMI 35.0-35.9,adult\. br\ Unchanged Misc Prescription (Handicap placard) See instructions Use as directed. Expiration 5 years \.br\ Unchanged Misc Prescription (lift chair) See instructions Osteoarthritis Chronic back pain History of rotator cuff surgery Other chronic pain Lift Chair \.br\ Allergies\.br\ traMADol (Tachycardia, Nausea)\.br\ Problems\.br\ Ongoing - Any problem that you are currently receiving treatment for.\.br\ Anxiety, generalized\.br\ Carpal tunnel syndrome of left wrist\.br\ Chronic back pain\.br\ GERD (gastroesophageal reflux disease)\.br\ History of rotator cuff surgery\.br\ Hypertension\.br\ Major depressive disorder, single episode in full remission\.br\ Mild persistent asthma\.br\ Obesity due to excess calories\.br\ Sciatica\.br\ Sleep difficulties\.br\ Historical - Any problem that you are no longer receiving treatment for.\.br\ BMI 39.0-39.9,adult\. 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 Please share your experience with us by completing your survey. We appreciate your feedback and thank you for choosing us for your care.\.br\ \.br\ [facility] Family Medicine Office/Clini c Noteon 10-12-2023 Family Medicine Office/Clinic Note HPI Staff Patient presents for weight loss follow up. Weight management Phentermine 37.5 mg discontinued at 09/14/2023 appointment. last weight: 89.6 last BMI: 35 today's weight: 91.2kg/200.64lbs today's BMI 35.18 PHQ 9: 10 questions/concerns : wants to talk about an allergy pill has something on her face for over a week, drying up she didn't know if you could suggest a cream she thinks it's poison oak talk about her pain, especially top left foot might need an xray History of Present Illness Patient presents today in f/u for weight management. She was referred to the sap technical developer at her last visit however, her insurance does not cover the service so she was not able to complete the referral. Review of Systems PHQ Score Initial Depression Screen Score: 1 SCORE Constitutional: no fever, no chills, no sweats, no weakness Skin: no Jaundice, moderate rash, no lesions, nopetechiae ENMT: no ear pain, no sore throat, no congestion, no hoarseness Respiratory: no shortness of breath, no cough, no orthopnea, no wheezing Cardiovascular: no chest pain, no palpitations, no edema Musculoskeletal: no back pain, no trauma; left foot pain Neurologic: no headache, no dizziness, no numbness, no weakness Psychiatric: no sleeping problems, no irritability, no mood swings/depression. Additional ROS info: Except as noted in the above Review of Systems and in the History of Present Illness all other systems have been reviewed and are negative or noncontributory. Physical Exam Vitals & Measurements T: 36.8 ?C(Oral) HR: 86(Peripheral) RR: 16 BP: 124/82 SpO2: 94% HT: 63 in HT: 161 cm WT: 91.2 kg WT: 200.64 lb BMI: 35.18 General: alert, no acute distress Skin: warm, dry, weeping vesiclesr, scaly, reddened, open under the chin and on the right side of her upper lip Head: no trauma, normocephalic Neck: Trachea midline, no adenopathy, no tenderness Eye: normal conjunctiva, sclera clear Cardiovascular: regular rate and rhythm, normal peripheral perfusion Respiratory: Lungs CTA, respirations non labored Chest wall: no deformity. Extremities: left foot no deformity, no trauma; tenderness with palpation Neurological: oriented x 4, LOC appropriate for age speech normal Psychiatric: cooperative, affect appropriate for age, normal judgement, normal psychiatric thoughts. Assessment/Plan 1. Contact dermatitis (L25.9: Unspecified contact dermatitis, unspecified cause) Encouraged to not itch her skin Ordered: predniSONE, 20 mg = 1 tab(s), Oral, Daily, Take 20 mg po QID x 3 days, then 20 mg po TID x 3 days, then 20 mg po BID x 3 days, then one tablet po QD x 3 days, # 30 tab(s), Refills(s) 0, Pharmacy: [id number], 161, cm, 10/12/23 8:32:00 EDT, Height... 2. Left foot pain (M79.672: Pain in left foot) Awaiting Xray results Ordered: XR Foot 3+ Views Left 3. Encounter for weight management (Z76.89: Persons encountering health services in other specified circumstances) Patient has gained 5 pounds since her last visit Continue with daily exercise Patient to contact insurance for preference for referral for weight management Ordered: Body Mass Index (BMI) documented 3008F Current tobacco non-user 1036F Depression Screening Positive 3354F Most recent diastolic blood pressure 80-89 mm Hg 3079F Systolic BP <130 mm Hg (Most Recent) 3074F 4. BMI 35.0-35.9,adult (Z68.35: Body mass index [BMI] 35.0-35.9, adult) Patient has gained 5 pounds since her last visit Continue with daily exercise Patient to contact insurance for preference for referral for weight management Ordered: Body Mass Index (BMI) documented 3008F Current tobacco non-user 1036F Depression Screening Positive 3354F Most recent diastolic blood pressure 80-89 mm Hg 3079F Systolic BP <130 mm Hg (Most Recent) 3074F 5. Class 1 obesity due to excess calories in adult (E66.09: Other obesity due to excess calories) Patient has gained 5 pounds since her last visit Continue with daily exercise Patient to contact insurance for preference for referral for weight management Ordered: Body Mass Index (BMI) documented 3008F Current tobacco non-user 1036F Depression Screening Positive 3354F Most recent diastolic blood pressure 80-89 mm Hg 3079F Systolic BP <130 mm Hg (Most Recent) 3074F 6. Nonsmoker (Z78.9: Other specified health status) Continue with non-smoking Ordered: Body Mass Index (BMI) documented 3008F Current tobacco non-user 1036F Depression Screening Positive 3354F Most recent diastolic blood pressure 80-89 mm Hg 3079F Systolic BP <130 mm Hg (Most Recent) 3074F Total time spent preparing the chart, conducting of the encounter with the patient and family and time spent documenting, reviewing, and ordering tests was 30 minutes. Follow-up With When Contact Information MELANY SCHUMACHER CNP, FAM Additional Instructions: Patient Education Poison Kuna Dermatitis, [id number]-[id number] Problem List/Past Medic (more content not included)... Normal [facility] Comment on above: Result Comment: Elec tronically Signed By: MELANY SCHUMACHER CNP\.br\Date and Time Signed: 10/12/23 09:46 EDT Patient Educationon 10-12-19 Patient Education Dermatology Poison Kuna Dermatitis Poison oak dermatitis is redness and soreness (inflammation) of the skin caused by chemicals in the leaves of the poison oak plant. You may have very bad itching, swelling, a rash, and blisters. What are the causes? You may get this condition by: ? Touching a poison oak plant. ? Touching something that has the chemical from the leaves on it. This may include animals or objects that have come in contact with the plant. What increases the risk? You are more likely to get this condition if you: ? Go outdoors often in wooded or marshy areas. ? Go outdoors without wearing protective clothing, such as closed shoes, long pants, and a long-sleeved shirt. What are the signs or symptoms? Symptoms of this condition include: ? Redness of the skin. ? Very bad itching. ? A rash that often includes bumps and blisters. ? The rash usually appears 48 hours after exposure if you have been exposed before. ? If this is the first time you have been exposed, the rash may not appear until a week after exposure. ? Swelling. This may occur if the reaction is very bad. Symptoms often clear up in 1?2 weeks. The first time you develop this condition, symptoms may last 3?4 weeks. How is this treated? This condition may be treated with: ? Hydrocortisone creams or calamine lotions to help with itching. ? Oatmeal baths to soothe the skin. ? Medicines to help reduce itching (antihistamines). If you have a very bad reaction, you may also be given steroid medicines. Follow these instructions at home: Medicines ? Take or apply qjzi-ucm-[id number] and prescription medicines only as told by your doctor. ? Use hydrocortisone creams or calamine lotion as needed to help with itching. General instructions ? Do not scratch or rub your skin. ? Put a cold, wet cloth (cold compress) on the affected areas or take baths in cool water. This will help with itching. ? Avoid hot baths and showers. ? Take oatmeal baths as needed. Use colloidal oatmeal. You can get this at a pharmacy or grocery store. Follow the instructions on the package. ? While you have the rash, wash your clothes right after you wear them. ? Keep all follow-up visits as told by your doctor. This is important. How is this prevented? ? Know what poison oak looks like so you can avoid it. ? This plant has three leaves with flowering branches on a single stem. ? The leaves are fuzzy. ? The edges of the leaves look like teeth. ? If you have touched poison oak, wash your skin with soap and water right away. Be sure to wash under your fingernails. ? When hiking or camping, wear long pants, a long-sleeved shirt, tall socks, and hiking boots. You can also use a lotion on your skin that helps to prevent contact with the chemical on the plant. ? If you think that your clothes or outdoor gear came in contact with poison oak, rinse them off with a garden hose before you bring them inside your house. ? When doing yard work or gardening, wear gloves, long sleeves, long pants, and boots. Wash your garden tools and gloves if they come in contact with poison oak. ? If you think that your pet has come into contact with poison oak, wash him or her with pet shampoo and water. Make sure you wear gloves while washing your pet. ? Do not burn poison oak plants. This can release the chemical from the plant into the air and may cause a reaction. Contact a doctor if: ? You have open sores in the rash area. ? You have more redness, swelling, or pain in the affected area. ? You have redness that spreads beyond the rash area. ? You have fluid, blood, or pus coming from the affected area. ? You have a fever. ? You have a rash over a large area of your body. ? You have a rash on your eyes, mouth, or genitals. ? Your rash does not improve after a few weeks. Get help right away if: ? Your face swells or your eyes swell shut. ? You have trouble breathing. ? You have trouble swallowing. These symptoms may be an emergency. Do not wait to see if the symptoms will go away. Get medical help right away. Call your local emergency services (911 in the [place] Do not drive yourself to the hospital. Summary ? Poison oak dermatitis is redness and soreness of the skin caused by chemicals in the leaves of the poison oak plant. ? Symptoms of this condition include redness, very bad itching, a rash, and swelling. ? Do not scratch or rub your skin. ? Take or apply wssw-hao-rhpfbxr and prescription medicines only as told by your doctor. This information is not intended to replace advice given to you by your health care provider. Make sure you discuss any questions you have with your health care provider. Document Revised: 10/05/2019 Document Reviewed: 07/13/2019 [employer] Patient Education ? 2022 [employer]. [facility] Ambulatory Visit Summaryon 0 10-04-2023 Ambulatory Visit Summary DASHA MEJIA :1970 Visit Date:10/04/2023 Ambulatory Visit Instructions Your Diagnosis Annual visit for general adult medical examination with abnormal findings Anxiety, generalized Major depressive disorder, single episode in full remission Hypertension BMI 34.0-34.9,adult Obesity due to excess calories Your Care Team Attending Physician - MELANY SCHUMACHER CNP Primary Care Physician - MELANY SCHUMACHER CNP This Is Your Medications List [facility] [place]Handicap plac[place]) Mis Prescription (lift chair) albuterol (albuterol HFA 90 mcg/inh MDI) diclofenac topical (Voltaren Arthritis Pain 1% topical gel) fluticasone-salmet ricci (Advair 250 mcg-50 mcg Powder) ibuprofen (ibuprofen 800 mg Tab) Procedures Performed Tear of biceps tendon (11/24/2018), Appendectomy, Bilateral tubal ligation, Meniscectomy of knee, Rotator cuff, Rotator cuff, Tonsillectomy. Discharge Vitals Heart Rate (Peripheral) 82 Respiratory Rate 16 Blood Pressure 144/88 Height 63 in Height 161 cm Weight 195.8 lb Weight 89 kg BMI 34.34 What to do next Scheduled Follow-Up Appointments Tuesday 8:20 AM EDT With: MELANY SCHUMACHER CNP Where: [facility] [address] [place] [address]- \.br\ Medications\.br\ What How Much When Why Instructions\.br\ Unchanged albuterol (albuterol HFA 90 mcg/ inh MDI) 1 Puffs Inhalation Every 4 hours as needed for for wheezing/shortnes s of breath\.br\ Unchanged diclofenac topical (Voltaren Arthritis Pain 1% topical gel) 2 Gram Topical 4 times a day Arthritis\.br\ Unchanged fluticasone-salme terol (Advair 250 mcg-50 mcg Powder) See instructions 1 puff BID rinse mouth and throat after use \.br\ Unchanged ibuprofen (ibuprofen 800 mg Tab) 1 Tablets By Mouth 3 times a day Morbid obesity due to excess calories BMI 35.0-35.9,adult\. br\ Unchanged Misc Prescription (Handicap placard) See instructions Use as directed. Expiration 5 years \.br\ Unchanged Misc Prescription (lift chair) See instructions Osteoarthritis Chronic back pain History of rotator cuff surgery Other chronic pain Lift Chair \.br\ Allergies\.br\ traMADol (Tachycardia, Nausea)\.br\ Problems\.br\ Ongoing - Any problem that you are currently receiving treatment for.\.br\ Anxiety, generalized\.br\ Carpal tunnel syndrome of left wrist\.br\ Chronic back pain\.br\ GERD (gastroesophageal reflux disease)\.br\ History of rotator cuff surgery\.br\ Hypertension\.br\ Major depressive disorder, single episode in full remission\.br\ Mild persistent asthma\.br\ Obesity due to excess calories\.br\ Sciatica\.br\ Sleep difficulties\.br\ Historical - Any problem that you are no longer receiving treatment for.\.br\ BMI 39.0-39.9,adult\. 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 Please share your experience with us by completing your survey. We appreciate your feedback and thank you for choosing us for your care.\.br\ Education Materials\.br\ Advance Directive\.br\ \.br\ Advance directives are legal documents that allow you to make decisions about your health care and medical treatment in case you become unable to communicate for yourself. Advance directives let your wishes be known to family, friends, and health care providers.\.br\ Discussing and writing advance directives should happen over time rather than all at once. Advance directives can be changed and updated at any time. There are different types of advance directives, such as:\.br\ ? \.br\ Medical power of corporate associate attorney.\.br\ ? \.br\ Living will.\.br\ ? \.br\ Do not resuscitate (DNR) order or do not attempt resuscitation (DNAR) order.\.br\ Health care proxy and medical power of corporate associate attorney\.br\ A health care proxy is also called a health care agent. This person is appointed to make medical decisions for you when you are unable to make decisions for yourself. Generally, people ask a trusted friend or family member to act as their proxy and represent their preferences. Make sure you have an agreement with your trusted person to act as your proxy. A proxy may have to make a medical decision on your behalf if your wishes are not known.\.br\ A medical power of corporate associate attorney, also called a durable power of corporate associate attorney for health care, is a legal document that names your health care proxy. Depending on the laws in your state, the document may need to be:\.br\ ? \.br\ Signed.\.br\ ? \.br\ Notarized.\.br\ ? \.br\ Dated.\.br\ ? \.br\ Copied.\.br\ ? \.br\ Witnessed.\.br\ ? \.br\ Incorporated into your medical record.\.br\ You may also want to appoint a trusted person to manage your money in the event you are unable to do so. This is called a durable power of corporate associate attorney for finances. It is a separate legal document from the durable power of corporate associate attorney for health care. You may choose your health care proxy or someone different to act as your agent in money matters.\.br\ If you do not appoint a proxy, or there is a concern that the proxy is not acting in your best interest, a court may appoint a guardian to act on your behalf.\.br\ Living will\.br\ A living will is a set of instructions that state your wishes about medical care when you cannot express them yourself. Health care providers should keep a copy of your living will in your medical record. You may want to give a copy to family members or friends. To alert caregivers in case of an emergency, you can place a card in your wallet to let them know that you have a living will and where they can find it. A living will is used if you become:\.br\ ? \.br\ Terminally ill.\.br\ ? \.br\ Disabled.\.br\ ? \.br\ Unable to communicate or make decisions.\.br\ The following decisions should be included in your living will:\.br\ ? \.br\ To use or not to use life support equipment, such as dialysis machines and breathing machines (ventilators).\.b r\ ? \.br\ Whether you want a DNR or DNAR order. This tells health care providers not to use cardiopulmonary resuscitation (CPR) if breathing or heartbeat stops.\.br\ ? \.br\ To use or not to use tube feeding.\.br\ ? \.br\ To be given or not to be given food and fluids.\.br\ ? \.br\ Whether you want comfort (palliative) care when the goal becomes comfort rather than a cure.\.br\ ? \.br\ Whether you want to donate your organs and tissues.\.br\ A living will does not give instructions for distributing your money and property if you should pass away.\.br\ DNR or DNAR\.br\ A DNR or DNAR order is a request not to have CPR in the event that your heart stops beating or you stop breathing. If a DNR or DNAR order has not been made and shared, a health care provider will try to help any patient whose heart has stopped or who has stopped breathing. If you plan to have surgery, talk with your health care provider about how your DNR or DNAR order will be followed if problems occur.\.br\ What if I do not have an advance directive?\.br\ Some states assign family decision makers to act on your behalf if you do not have an advance directive. Each state has its own laws about advance directives. You may want to check with your health care provider, corporate associate attorney, or state investment representative about the laws in your state.\.br\ Summary\.br\ ? \.br\ Advance directives are legal documents that allow you to make decisions about your health care and medical treatment in case you become unable to communicate for yourself.\.br\ ? \.br\ The process of discussing and writing advance directives should happen over time. You can change and update advance directives at any time.\.br\ ? \.br\ Advance directives may include a medical power of corporate associate attorney, a living will, and a DNR or DNAR order.\.br\ This information is not intended to replace advice given to you by your health care provider. Make sure you discuss any questions you have with your health care provider.\.br\ Document Revised: 03/17/2021 Document Reviewed: 03/17/2021 [employer] Patient Education ? 2022 [employer].\.br\ Managing Depression, Adult\.br\ Depression is a mental health condition that affects your thoughts, feelings, and actions. Being diagnosed with depression can bring you relief if you did not know why you have felt or behaved a certain way. It could also leave you feeling overwhelmed with uncertainty about your future. Preparing yourself to manage your symptoms can help you feel more positive about your future.\.br\ How to manage lifestyle changes\.br\ Managing stress\.br\ \.br\ Stress is your body's reaction to life changes and events, both good and bad. Stress can add to your feelings of depression. Learning to manage your stress can help lessen your feelings of depression.\.b [facility] Family Medicine Office/Clini c Noteon 10-04-2023 Family Medicine Office/Clinic Note Chief Complaint Subsequent Medicare Wellness Visit Review of Systems PHQ Score Initial Depression Screen Score: 2 SCORE Physical Exam Vitals & Measurements HR: 82(Peripheral) RR: 16 BP: 144/88 SpO2: 97% HT: 161 cm HT: 63 in WT: 89 kg WT: 195.8 lb BMI: 34.34 Assessment/Plan 1. Annual visit for general adult medical examination with abnormal findings (Z00.01: Encounter for general adult medical examination with abnormal findings) Discussed all the current AHRQ USPSTF?s recommendations for preventative services and all current CDC recommended immunizations, relevant risk recommendations and the following patient brochures were given. Reviewed Medicare Prevention Services checklist. CDC-Falls Prevention and home safety screening reviewed. Patient denies any falls in last 12 months, voices no worry about falling. Exhibits no problems with sitting, standing or ambulation. Patient aware with keeping walk way area free of clutter to prevent tripping and/or falling. [place] Advance Directives reviewed. Pt states she does not have Advance Directives, education materials given, encouraged to bring in for scanning into chart when she is finished filling it out. Patient denies any problems with ADL?s and Instrumental ADL?s. Cognitive screening completed with memory and clock face drawing. No deficits noted. Immunization record reviewed, discussed Shingrix vaccine with educational handout and availability. No COVID vaccines have been administered, education materials given on the importance of vaccination. Allergies and medications reviewed and up to date. No concerns with taking medication as prescribed. Reviewed OTC medications, medication list up to date. Pt states she stopped taking sertraline about a month after starting it, PCP aware. Pt states she feels she is doing pretty good with anxiety and depression at this time. PHQ-9 Score- 11. Pt to follow up with PCP 10/12/23. Blood tests were reviewed: Discussed with PCP who states based on pt current medical conditions / treatments labs are UTD for pt at this time. No concerns with bowel/ bladder. Cologuard last completed 04/28/22 came back negative, next due 04/28/25. Reviewed pain symptoms : pt c/o pain of pain in shoulders, low back, knee and left elbow of 6 on 1-10 scale. States she takes Ibuprofen or uses Voltaren gel for pain and it helps relieve some pain. States she has not used either medication yet today and does not take the two on the same day takes one or the other. States she plans to start working out at the gym heated pool and feels this will help further. Reviewed all outside providers that patient follows. Last visit summary notes available in chart and/or have been requested. Patient states some signs or symptoms of depression at this time but states she feels she is doing pretty good with her anxiety and depression. PHQ9-11. To follow up with PCP 10/12/23. 15 minutes spent with screening and documentation. Patient denies drinking alcohol, denies concerns. 8 minutes spent with screening and documentation. Audit score 0. Follow up scheduled with PCP, 10/12/23 AWV has been scheduled, 10/09/24 Medicare provides yearly screening for alcohol and depression concerns. This is completed during our Medicare wellness visit for those who do not have a current diagnosis of depression or concerns with alcohol use. I spent a total of 18 minutes on this date of service which included preparing to see the patient, face to face patient care, completing clinical documentation, obtaining and/or reviewing separately obtained history, counseling and educating the patient with handouts. Explanations were provided with reviewing questionnaires. AUDIT risk assessment screening completed, risk score (0) with patient denying concerns with use. Patient to notify the provider if there would be a change or concerns with symptoms with fear, unable to sleep, worrying too much or feeling down and/or sad with lost of interest with daily activities. Will continue to monitor with screening yearly during Medicare wellness visits and PCP follow up visits. 2. Anxiety, generalized (F41.1: Generalized anxiety disorder) Patient states she stopped taking her sertraline due to not feeling like it was helping, states PCP aware. SANAM-7 completed with negative findings. Risk score of (3). Following up with PCP as directed with symptom and medication management. Reviewed concerns that need to be discussed during office visits with PCP: changes with worrying too much and it is interfering with your work, relationships and/or other parts of your life. Your fear, worry or anxiety is upsetting to you and difficult to control. If additional trouble with depression is noticeable contact your provider. Patient has a follow up appt with PCP 10/12/23. 3. Major depressive disorder, single episode in full remission (F32.5: Major depressive disorder, single episode, in full remission) Patient states she stopped taking her sertraline due to not feeling li (more content not included)... [facility] Comment on above: Result Comment: Elec tronically Signed By: MELANY SCHUMACHER CNP\.gallo\Date and Time Signed: 10/04/23 14:40 EDT\.br\Electronically Co-Signed By: Meliza Encarnacion LPN\.gallo\Date and Time Co-Signed: 10/04/23 14:27 EDT Patient Correspondenceon Patient Correspondence [phone] [id number]#[id number] [facility] Patient Correspondence [phone] [id number]#[id number] [facility] Patient Educationon 10-04-19 Patient Education Caregiving Advance Directive Advance directives are legal documents that allow you to make decisions about your health care and medical treatment in case you become unable to communicate for yourself. Advance directives let your wishes be known to family, friends, and health care providers. Discussing and writing advance directives should happen over time rather than all at once. Advance directives can be changed and updated at any time. There are different types of advance directives, such as: ? Medical power of corporate associate attorney. ? Living will. ? Do not resuscitate (DNR) order or do not attempt resuscitation (DNAR) order. Health care proxy and medical power of corporate associate attorney A health care proxy is also called a health care agent. This person is appointed to make medical decisions for you when you are unable to make decisions for yourself. Generally, people ask a trusted friend or family member to act as their proxy and represent their preferences. Make sure you have an agreement with your trusted person to act as your proxy. A proxy may have to make a medical decision on your behalf if your wishes are not known. A medical power of corporate associate attorney, also called a durable power of corporate associate attorney for health care, is a legal document that names your health care proxy. Depending on the laws in your state, the document may need to be: ? Signed. ? Notarized. ? Dated. ? Copied. ? Witnessed. ? Incorporated into your medical record. You may also want to appoint a trusted person to manage your money in the event you are unable to do so. This is called a durable power of corporate associate attorney for finances. It is a separate legal document from the durable power of corporate associate attorney for health care. You may choose your health care proxy or someone different to act as your agent in money matters. If you do not appoint a proxy, or there is a concern that the proxy is not acting in your best interest, a court may appoint a guardian to act on your behalf. Living will A living will is a set of instructions that state your wishes about medical care when you cannot express them yourself. Health care providers should keep a copy of your living will in your medical record. You may want to give a copy to family members or friends. To alert caregivers in case of an emergency, you can place a card in your wallet to let them know that you have a living will and where they can find it. A living will is used if you become: ? Terminally ill. ? Disabled. ? Unable to communicate or make decisions. The following decisions should be included in your living will: ? To use or not to use life support equipment, such as dialysis machines and breathing machines (ventilators). ? Whether you want a DNR or DNAR order. This tells health care providers not to use cardiopulmonary resuscitation (CPR) if breathing or heartbeat stops. ? To use or not to use tube feeding. ? To be given or not to be given food and fluids. ? Whether you want comfort (palliative) care when the goal becomes comfort rather than a cure. ? Whether you want to donate your organs and tissues. A living will does not give instructions for distributing your money and property if you should pass away. DNR or DNAR A DNR or DNAR order is a request not to have CPR in the event that your heart stops beating or you stop breathing. If a DNR or DNAR order has not been made and shared, a health care provider will try to help any patient whose heart has stopped or who has stopped breathing. If you plan to have surgery, talk with your health care provider about how your DNR or DNAR order will be followed if problems occur. What if I do not have an advance directive? Some states assign family decision makers to act on your behalf if you do not have an advance directive. Each state has its own laws about advance directives. You may want to check with your health care provider, corporate associate attorney, or state investment representative about the laws in your state. Summary ? Advance directives are legal documents that allow you to make decisions about your health care and medical treatment in case you become unable to communicate for yourself. ? The process of discussing and writing advance directives should happen over time. You can change and update advance directives at any time. ? Advance directives may include a medical power of corporate associate attorney, a living will, and a DNR or DNAR order. This information is not intended to replace advice given to you by your health care provider. Make sure you discuss any questions you have with your health care provider. Document Revised: 03/17/2021 Document Reviewed: 03/17/2021 Content [employer] Patient Education ? 2022 [employer]. Infectious Disease Shingles Shingles, which is also known as herpes zoster, is an infection that causes a painful skin rash and fluid-filled blisters. It is caused by a virus. Shingles only develops in people who: ? Have had chickenpox. ? Have been vacci (more content not included)... [facility] [place]enson 10-04-2023 Screens [id number] [facility] Ambulatory Visit Summaryon 0 09-14-2023 Ambulatory Visit Summary DASHA MEJIA :1970 Visit Date:09/14/2023 Ambulatory Visit Instructions Your Diagnosis Morbid obesity due to excess calories BMI 35.0-35.9,adult Your Care Team Attending Physician - MELANY SCHUMACHER CNP Primary Care Physician - MELANY SCHUMACHER CNP This Is Your Medications List ibuprofen (ibuprofen 800 mg Tab) Contact prescribing physician if questions or concerns Misc Prescription (Handicap placard) Misc Prescription (lift chair) albuterol (albuterol HFA 90 mcg/inh MDI) diclofenac topical (Voltaren Arthritis Pain 1% topical gel) fluticasone-salmet ricci (Advair 250 mcg-50 mcg Powder) [Image Removed: STOP]Stop taking these medications phentermine (Adipex-P 37.5 mg oral capsule) sertraline (sertraline 50 mg Tab) Procedures Performed Tear of biceps tendon (11/24/2018), Appendectomy, Bilateral tubal ligation, Meniscectomy of knee, Rotator cuff, Rotator cuff, Tonsillectomy. Discharge Vitals Heart Rate (Peripheral) 87 Blood Pressure 120/78 Height 160 cm Height 63 in Weight 89.6 kg Weight 197.12 lb BMI 35 What to do next Scheduled Follow-Up Appointments Tuesday 8:20 AM EDT With: MELANY SCHUMACHER CNP Where: [facility] [address] [place] [address]-\.br\ You Need to Schedule the Following Appointments\.br\ Follow Up with MELANY SCHUMACHER CNP, FAM When: Within 4 weeks\.br\ Comments:\.br\ Weight Management\.br\ Where:\.br\ [address]\.br\ [place] [address]\.br\ Business (1)\.br\ \.br\ Medications\.br\ What How Much When Why Instructions\.br\ New ibuprofen (ibuprofen 800 mg Tab) 1 Tablets By Mouth 3 times a day Morbid obesity due to excess calories BMI 35.0-35.9,adult Refills: 1 Pickup at [facility] #[id number]\.br\ Unchanged albuterol (albuterol HFA 90 mcg/ inh MDI) 1 Puffs Inhalation Every 4 hours as needed for for wheezing/shortnes s of breath Contact prescribing physician if questions or concerns \.br\ Unchanged diclofenac topical (Voltaren Arthritis Pain 1% topical gel) 2 Gram Topical 4 times a day Arthritis Contact prescribing physician if questions or concerns \.br\ Unchanged fluticasone-salme terol (Advair 250 mcg-50 mcg Powder) See instructions 1 puff BID rinse mouth and throat after use Contact prescribing physician if questions or concerns \.br\ Unchanged Misc Prescription (Handicap placard) See instructions Use as directed. Expiration 5 years Contact prescribing physician if questions or concerns \.br\ Unchanged Misc Prescription (lift chair) See instructions Osteoarthritis Chronic back pain History of rotator cuff surgery Other chronic pain Lift Chair Contact prescribing physician if questions or concerns \.br\ Pharmacy Information\.br\ [facility] #[id number]: [address], [place] [id number] [phone]\.br\ \.br\ What How Much When Why Comments\.br\ Stop Taking phentermine (Adipex-P 37.5 mg oral capsule) 1 Capsules By Mouth Every day Morbid obesity due to excess calories Medication management\.br\ Stop Taking sertraline (sertraline 50 mg Tab) 1 Tablets By Mouth Every day Major depressive disorder, single episode in full remission Morbid obesity due to excess calories Obesity due to excess calories\.br\ Allergies\.br\ traMADol (Tachycardia, Nausea)\.br\ Problems\.br\ Ongoing - Any problem that you are currently receiving treatment for.\.br\ Anxiety, generalized\.br\ Carpal tunnel syndrome of left wrist\.br\ Chronic back pain\.br\ GERD (gastroesophageal reflux disease)\.br\ History of rotator cuff surgery\.br\ Hypertension\.br\ Major depressive disorder, single episode in full remission\.br\ Mild persistent asthma\.br\ Morbid obesity due to excess calories\.br\ Obesity due to excess calories\.br\ Sciatica\.br\ Sleep difficulties\.br\ Historical - Any problem that you are no longer receiving treatment for.\.br\ BMI 39.0-39.9,adult\. 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 Please share your experience with us by completing your survey. We appreciate your feedback and thank you for choosing us for your care.\.br\ \.br\ [facility] Family Medicine Office/Clini c Noteon 09-14-2023 Family Medicine Office/Clinic Note Chief Complaint weight loss follow up HPI Staff Patient presents for weight loss follow up and depression follow up. Follow up for Mental Status: Medication adherence- Yes, takes medication as prescribed MEdication refill needed: _ Suicidal thoughts-Not at this time Most recent PHQ: 0 Today's PHQ: Weight management Sleeping well:Yes, 6-8 hours Chest pain:No Tremors:No Headaches:No Heart fluttering:No Blurred Vision:No Last weight: 90.4 Last BMI: 35.31 Today's weight: 89.6 Today's BMI: 35 would like a wellness visit. History of Present Illness Patient presents today in f/u for weight management. She started phentermine in April 2023. She lost 13 pounds in the 90 days she was on the medication. The phentermine was not refilled at her visit in June 2023 dt/ not losing 10 % of her weight in 90 days. She was able to begin doing some bed and chair exercises every day over the past month and today she shows an additional weight loss of 1 pounds in the past 30 days. She was restarted on the phentermine at her appointment in July 2023. She reports the medication is not doing anything to help her. She states she would like a referral to the sap technical developer. She is requesting a refill of ibuprofen. Review of Systems PHQ Score Initial Depression Screen Score: 0 SCORE Constitutional: no fever, no chills, no sweats, no weakness Respiratory: no shortness of breath, no cough, no orthopnea, no wheezing Cardiovascular: no chest pain, no palpitations, no edema Additional ROS info: Except as noted in the above Review of Systems and in the History of Present Illness all other systems have been reviewed and are negative or noncontributory. Physical Exam Vitals & Measurements HR: 87(Peripheral) BP: 120/78 SpO2: 97% HT: 63 in HT: 160 cm WT: 89.6 kg WT: 197.12 lb BMI: 35 General: alert, no acute distress Cardiovascular: regular rate and rhythm, normal peripheral perfusion Respiratory: Lungs CTA, respirations non labored Extremities: no deformity, no trauma Neurological: oriented x 4, LOC appropriate for age, CN II-XII intact, motor strength equal & normal bilaterally, sensation equal & normal bilaterally, speech normal Assessment/Plan 1. Morbid obesity due to excess calories (E66.01: Morbid (severe) obesity due to excess calories) Patient has lost 1 pound since her last visit Discontinue phentermine 37.5 mg one capsule in the AM- no refills today Continue with daily exercise Encouraged daily portion control [place]AR[place] reviewed and found to be appropriate. f/u in 4 weeks Ordered: ibuprofen, 800 mg = 1 tab(s), Oral, TID, # 90 tab(s), Refills(s) 1, Pharmacy: [id number] #[id number], 160, cm, 09/14/23 9:28:00 EDT, Height/Length Dosing, 89.6, kg, 09/14/23 9:28:00 EDT, Weight Dosing Body Mass Index (BMI) documented 3008F Current tobacco non-user 1036F Depression Screening Negative 3352F [facility] Medication list documented in medical record [id number] 2. BMI 35.0-35.9,adult (Z68.35: Body mass index [BMI] 35.0-35.9, adult) Patient has lost 1 pound since her last visit Discontinue phentermine 37.5 mg one capsule in the AM- no refills today Continue with daily exercise Encouraged daily portion control [place]AR[place] reviewed and found to be appropriate. f/u in 4 weeks Ordered: ibuprofen, 800 mg = 1 tab(s), Oral, TID, # 90 tab(s), Refills(s) 1, Pharmacy: [facility] #[id number], 160, cm, 09/14/23 9:28:00 EDT, Height/Length Dosing, 89.6, kg, 09/14/23 9:28:00 EDT, Weight Dosing [facility] [place] Ref[place] Follow-up With When Contact Information MELANY SCHUMACHER CNP, FAM Within [address] [place] [id number] [facility] (1) Additional Instructions: Weight Management Patient Education Obesity, Adult, Tosc-[id number]-[id number] Problem List/Past Medical History Ongoing Anxiety, generalized Carpal tunnel syndrome of left wrist Chronic back pain GERD (gastroesophageal reflux disease) History of rotator cuff surgery Hypertension Major depressive disorder, single episode in full remission Mild persistent asthma Morbid obesity due to excess calories Obesity due to excess calories Sciatica Sleep difficulties Historical BMI 39.0-39.9,adult Moderate depressive disorder 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 Medications Advair 250 mcg-50 mcg Powder, See Instructions, 4 refills albuterol HFA 90 mcg/inh MDI, 1 puff(s), Inhalation, q4hr, PRN, 6 refills Handicap placard, See Instructions ibuprofen 800 mg Tab, 800 mg= 1 tab(s), Oral, TID, 1 refills lift chair, See Instructions Voltaren Arthritis Pain 1% topical gel, 2 gm, Topical, QID, 2 refills Allergies traMADol (Tachycardia, Nausea) Social History Alcohol - Denies Alcohol Use, 04/20/2022 Household a (more content not included)... [facility] Comment on above: Result Comment: Elec tronically Signed By: MELANY SCHUMACHER CNP\.br\Date and Time Signed: 09/14/23 09:58 EDT Patient Educationon 09-14-19 Patient Education Gastroenterology Obesity, Adult Obesity is having too much body fat. Being obese means that your weight is more than what is healthy for you. BMI (body mass index) is a number that explains how much body fat you have. If you have a BMI of 30 or more, you are obese. Obesity can cause serious health problems, such as: ? Stroke. ? Coronary artery disease (CAD). ? Type 2 diabetes. ? Some types of cancer. ? High blood pressure (hypertension). ? High cholesterol. ? Gallbladder stones. Obesity can also contribute to: ? Osteoarthritis. ? Sleep apnea. ? Infertility problems. What are the causes? ? Eating meals each day that are high in calories, sugar, and fat. ? Drinking a lot of drinks that have sugar in them. ? Being born with genes that may make you more likely to become obese. ? Having a medical condition that causes obesity. ? Taking certain medicines. ? Sitting a lot (having a sedentary lifestyle). ? Not getting enough sleep. What increases the risk? ? Having a family history of obesity. ? Living in an area with limited access to: ? [place], recreation centers, or sidewalks. ? Healthy food choices, such as grocery stores and [employer]. What are the signs or symptoms? The main sign is having too much body fat. How is this treated? Treatment for this condition often includes changing your lifestyle. Treatment may include: ? Changing your diet. This may include making a healthy meal plan. ? Exercise. This may include activity that causes your heart to beat faster (aerobic exercise) and strength training. Work with your doctor to design a program that works for you. ? Medicine to help you lose weight. This may be used if you are not able to lose one pound a week after 6 weeks of healthy eating and more exercise. ? Treating conditions that cause the obesity. ? Surgery. Options may include gastric banding and gastric bypass. This may be done if: ? Other treatments have not helped to improve your condition. ? You have a BMI of 40 or higher. ? You have life-threatening health problems related to obesity. Follow these instructions at home: Eating and drinking ? Follow advice from your doctor about what to eat and drink. Your doctor may tell you to: ? Limit fast food, sweets, and processed snack foods. ? Choose low-fat options. For example, choose low-fat milk instead of whole milk. ? Eat five or more servings of fruits or vegetables each day. ? Eat at home more often. This gives you more control over what you eat. ? Choose healthy foods when you eat out. ? Learn to read food labels. This will help you learn how much food is in one serving. ? Keep low-fat snacks available. ? Avoid drinks that have a lot of sugar in them. These include soda, fruit juice, iced tea with sugar, and flavored milk. ? Drink enough water to keep your pee (urine) pale yellow. ? Do not go on fad diets. Physical activity ? Exercise often, as told by your doctor. Most adults should get up to 150 minutes of moderate-intensity exercise every week.Ask your doctor: ? What types of exercise are safe for you. ? How often you should exercise. ? Warm up and stretch before being active. ? Do slow stretching after being active (cool down). ? Rest between times of being active. Lifestyle ? Work with your doctor and a food expert (dietitian) to set a weight-loss goal that is best for you. ? Limit your screen time. ? Find ways to reward yourself that do not involve food. ? Do not drink alcohol if: ? Your doctor tells you not to drink. ? You are , may be , or are planning to become . ? If you drink alcohol: ? Limit how much you have to: ? 0?1 drink a day for women. ? 0?2 drinks a day for men. ? Know how much alcohol is in your drink. In the [place] one drink equals one 12 oz bottle of beer (355 mL), one 5 oz glass of wine (148 mL), or one 1? oz glass of hard liquor (44 mL). General instructions ? Keep a weight-loss journal. This can help you keep track of: ? The food that you eat. ? How much exercise you get. ? Take zmdy-twk-qunbyyo and prescription medicines only as told by your doctor. ? Take vitamins and supplements only as told by your doctor. ? Think about joining a support group. ? Pay attention to your mental health as obesity can lead to depression or self esteem issues. ? Keep all follow-up visits. Contact a doctor if: ? You cannot meet your weight-loss goal after you have changed your diet and lifestyle for 6 weeks. ? You are having trouble breathing. Summary ? Obesity is having too much body fat. ? Being obese means that your weight is more than what is healthy for you. ? Work with your doctor to set a weight-loss goal. ? Get regular exercise as told by your doctor. This information is not intended to replace advice given to you by your health care provider. Make sure you discuss any questions you have with yo (more content not included)... [facility] Physician Referralon 024 Physician Referral [phone] [id number] [facility] Ambulatory Visit Summaryon 0 08-17-2023 Ambulatory Visit Summary DASHA MEJIA :1970 Visit Date:08/17/2023 Ambulatory Visit Instructions Your Diagnosis Morbid obesity due to excess calories Obesity due to excess calories Major depressive disorder, single episode in full remission Your Care Team Attending Physician - MELANY SCHUMACHER CNP Primary Care Physician - MELANY SCHUMACHER CNP This Is Your Medications List phentermine (Adipex-P 37.5 mg oral capsule) Contact prescribing physician if questions or concerns Misc Prescription (Handicap placard) Misc Prescription (lift chair) albuterol (albuterol HFA 90 mcg/inh MDI) diclofenac topical (Voltaren Arthritis Pain 1% topical gel) fluticasone-salmet ricci (Advair 250 mcg-50 mcg Powder) sertraline (sertraline 50 mg Tab) Procedures Performed Tear of biceps tendon (11/24/2018), Appendectomy, Bilateral tubal ligation, Meniscectomy of knee, Rotator cuff, Rotator cuff, Tonsillectomy. Discharge Vitals Heart Rate (Peripheral) 68 Blood Pressure 118/68 Height 160 cm Height 63 in Weight 90.4 kg Weight 198.88 lb BMI 35.31 What to do next Scheduled Follow-Up Appointments Tuesday 9:20 AM EDT With: MELANY SCHUMACHER CNP Where: [facility] [place] [facility] [address] [place], [place] [address]-\.br\ You Need to Schedule the Following Appointments\.br\ Follow Up with MELANY SCHUMACHER CNP, FAM When: Within 4 weeks\.br\ Comments:\.br\ Weight management\.br\ Where:\.br\ Medications\.br\ What How Much When Why Instructions\.br\ Unchanged phentermine (Adipex-P 37.5 mg oral capsule) 1 Capsules By Mouth Every day Morbid obesity due to excess calories Medication management Pickup at [facility] #[id number]\.br\ Unchanged albuterol (albuterol HFA 90 mcg/ inh MDI) 1 Puffs Inhalation Every 4 hours as needed for for wheezing/shortnes s of breath Contact prescribing physician if questions or concerns \.br\ Unchanged diclofenac topical (Voltaren Arthritis Pain 1% topical gel) 2 Gram Topical 4 times a day Arthritis Contact prescribing physician if questions or concerns \.br\ Unchanged fluticasone-salme terol (Advair 250 mcg-50 mcg Powder) See instructions 1 puff BID rinse mouth and throat after use Contact prescribing physician if questions or concerns \.br\ Unchanged Misc Prescription (Handicap placard) See instructions Use as directed. Expiration 5 years Contact prescribing physician if questions or concerns \.br\ Unchanged Misc Prescription (lift chair) See instructions Osteoarthritis Chronic back pain History of rotator cuff surgery Other chronic pain Lift Chair Contact prescribing physician if questions or concerns \.br\ Unchanged sertraline (sertraline 50 mg Tab) 1 Tablets By Mouth Every day Major depressive disorder, single episode in full remission Morbid obesity due to excess calories Obesity due to excess calories Contact prescribing physician if questions or concerns \.br\ Pharmacy Information\.br\ [facility] #[id number]: [address], [place] [id number] [phone]\.br\ Allergies\.br\ traMADol (Tachycardia, Nausea)\.br\ Problems\.br\ Ongoing - Any problem that you are currently receiving treatment for.\.br\ Anxiety, generalized\.br\ Chronic back pain\.br\ GERD (gastroesophageal reflux disease)\.br\ History of rotator cuff surgery\.br\ Hypertension\.br\ Major depressive disorder, single episode in full remission\.br\ Mild persistent asthma\.br\ Morbid obesity due to excess calories\.br\ Obesity due to excess calories\.br\ Sciatica\.br\ Sleep difficulties\.br\ Historical - Any problem that you are no longer receiving treatment for.\.br\ BMI 39.0-39.9,adult\. 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 Please share your experience with us by completing your survey. We appreciate your feedback and thank you for choosing us for your care.\.br\ \.br\ [facility] Family Medicine Office/Clini c Noteon 08-17-2023 Family Medicine Office/Clinic Note Chief Complaint weight loss follow up HPI Staff Patient presents for weight loss follow up. Weight management Sleeping well:Yes, 6-8 hours Chest pain:No Tremors:No Headaches:No Heart fluttering:No Blurred Vision:No Last Weight: 91.4 Last BMI: 35.7 Today's weight 90.4 Today's BMI 35.31 I have reviewed and verified the staff HPI to be accurate for this encounter. History of Present Illness Patient presents today in f/u for weight management. She started phentermine in April 2023. She lost 13 pounds in the 90 days she was on the medication. The phentermine was not refilled at her visit in June 2023 dt/ not losing 10 % of her weight in 90 days. She was able to begin doing some bed and chair exercises every day over the past month and today she shows an additional weight loss of 3 pounds in the past 30 days. She would like to restart the phentermine at this visit today. Review of Systems PHQ Score Initial Depression Screen Score: 0 SCORE Constitutional: no fever, no chills, no sweats, no weakness Skin: no Jaundice, no rash, no lesions, nopetechiae Respiratory: no shortness of breath, no cough, no orthopnea, no wheezing Cardiovascular: no chest pain, no palpitations, no edema Musculoskeletal: no back pain, no trauma Neurologic: no headache, no dizziness, no numbness, no weakness Psychiatric: no sleeping problems, no irritability, no mood swings/depression. Additional ROS info: Except as noted in the above Review of Systems and in the History of Present Illness all other systems have been reviewed and are negative or noncontributory. Physical Exam Vitals & Measurements HR: 68(Peripheral) BP: 118/68 SpO2: 98% HT: 63 in HT: 160 cm WT: 90.4 kg WT: 198.88 lb BMI: 35.31 General: alert, no acute distress Cardiovascular: regular rate and rhythm, normal peripheral perfusion Respiratory: Lungs CTA, respirations non labored Extremities: no deformity, no trauma Neurological: oriented x 4, LOC appropriate for age, CN II-XII intact, motor strength equal & normal bilaterally, sensation equal & normal bilaterally, speech normal Assessment/Plan 1. Morbid obesity due to excess calories (E66.01: Morbid (severe) obesity due to excess calories) Patient has lost 3 pounds since her last visit Start phentermine 37.5 mg one capsule in the AM- no refills today Continue with daily exercise Encouraged daily portion control OARRS reviewed and found to be appropriate. Medication Agreement completed at this visit f/u in 4 weeks Ordered: phentermine, 37.5 mg = 1 cap(s), Oral, Daily, # 30 cap(s), Refills(s) 0, Pharmacy: [facility] #[id number], 160, cm, 08/17/23 9:37:00 EST, Height/Length Dosing, 90.4, kg, 08/17/23 9:37:00 EST, Weight Dosing 2. Obesity due to excess calories (E66.09: Other obesity due to excess calories) Patient has lost 3 pounds since her last visit Start phentermine 37.5 mg one capsule in the AM- no refills today Continue with daily exercise Encouraged daily portion control f/u in 4 weeks 3. Major depressive disorder, single episode in full remission (F32.5: Major depressive disorder, single episode, in full remission) Stable Controlled with Sertraline 50 mg one tablet daily - no refills today PHQ - 9 score 0 today in the office f/u in 4 weeks Follow-up With When Contact Information MELANY SCHUMACHER CNP, FAM Within 4 weeks Additional Instructions: Weight management Patient Education Exercising to Lose Weight Problem List/Past Medical History Ongoing Anxiety, generalized Chronic back pain GERD (gastroesophageal reflux disease) History of rotator cuff surgery Hypertension Major depressive disorder, single episode in full remission Mild persistent asthma Morbid obesity due to excess calories Obesity due to excess calories Sciatica Sleep difficulties Historical BMI 39.0-39.9,adult Moderate depressive disorder 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 Medications Adipex-P 37.5 mg oral capsule, 37.5 mg= 1 cap(s), Oral, Daily Advair 250 mcg-50 mcg Powder, See Instructions, 4 refills albuterol HFA 90 mcg/inh MDI, 1 puff(s), Inhalation, q4hr, PRN, 6 refills Handicap placard, See Instructions lift chair, See Instructions sertraline 50 mg Tab, 50 mg= 1 tab(s), Oral, Daily, 1 refills Voltaren Arthritis Pain 1% topical gel, 2 gm, Topical, QID, 6 refills Allergies traMADol (Tachycardia, Nausea) Social History Alcohol - Denies Alcohol Use, 04/20/2022 Household alcohol concerns: No., 08/12/2022 Substance Abuse - Denies Substance Abuse, 12/07/2019 Household substance abuse concerns: No., 08/12/2022 Tobacco - Denies Tobacco Use, 07/07/2020 Never (less than 100 in lifetime) Tobacco Use:. Never Smokeless Tobacco Use:. Household tobacco concerns: No., 08/17/2023 Family Histor (more content not included)... [facility] Comment on above: Result Comment: Elec tronically Signed By: MELANY SCHUMACHER CNP\.br\Date and Time Signed: 08/17/23 10:55 EST Medication Consenton 024 Medication Consent [phone] [id number] [facility] Patient Educationon 08-17-19 24 Patient Education Physical Medicine and Rehabilitation Exercising to Lose Weight Getting regular exercise is important for everyone. It is especially important if you are overweight. Being overweight increases your risk of heart disease, stroke, diabetes, high blood pressure, and several types of cancer. Exercising, and reducing the calories you consume, can help you lose weight and improve fitness and health. Exercise can be moderate or vigorous intensity. To lose weight, most people need to do a certain amount of moderate or vigorous-intensity exercise each week. How can exercise affect me? You lose weight when you exercise enough to burn more calories than you eat. Exercise also reduces body fat and builds muscle. The more muscle you have, the more calories you burn. Exercise also: ? Improves mood. ? Reduces stress and tension. ? Improves your overall fitness, flexibility, and endurance. ? Increases bone strength. Moderate-intensity exercise Moderate-intensity exercise is any activity that gets you moving enough to burn at least three times more energy (calories) than if you were sitting. Examples of moderate exercise include: ? Walking a mile in 15 minutes. ? Doing light yard work. ? Biking at an easy pace. Most people should get at least 150 minutes of moderate-intensity exercise a week to maintain their body weight. Vigorous-intensity exercise Vigorous-intensity exercise is any activity that gets you moving enough to burn at least six times more calories than if you were sitting. When you exercise at this intensity, you should be working hard enough that you are not able to carry on a conversation. Examples of vigorous exercise include: ? Running. ? Playing a team sport, such as football, basketball, and soccer. ? Jumping rope. Most people should get at least 75 minutes a week of vigorous exercise to maintain their body weight. What actions can I take to lose weight? The amount of exercise you need to lose weight depends on: ? Your age. ? The type of exercise. ? Any health conditions you have. ? Your overall physical ability. Talk to your health care provider about how much exercise you need and what types of activities are safe for you. Nutrition ? Make changes to your diet as told by your health care provider or diet and livestock nutrition territory manager (dietitian). This may include: ? Eating fewer calories. ? Eating more protein. ? Eating less unhealthy fats. ? Eating a diet that includes fresh fruits and vegetables, whole grains, low-fat dairy products, and lean protein. ? Avoiding foods with added fat, salt, and sugar. ? Drink plenty of water while you exercise to prevent dehydration or heat stroke. Activity ? Choose an activity that you enjoy and set realistic goals. Your health care provider can help you make an exercise plan that works for you. ? Exercise at a moderate or vigorous intensity most days of the week. ? The intensity of exercise may vary from person to person. You can tell how intense a workout is for you by paying attention to your breathing and heartbeat. Most people will notice their breathing and heartbeat get faster with more intense exercise. ? Do resistance training twice each week, such as: ? Push-ups. ? Sit-ups. ? Lifting weights. ? Using resistance bands. ? Getting short amounts of exercise can be just as helpful as long, structured periods of exercise. If you have trouble finding time to exercise, try doing these things as part of your daily routine: ? Get up, stretch, and walk around every 30 minutes throughout the day. ? Go for a walk during your lunch break. ? Park your car farther away from your destination. ? If you take public transportation, get off one stop early and walk the rest of the way. ? Make phone calls while standing up and walking around. ? Take the stairs instead of elevators or escalators. ? Wear comfortable clothes and shoes with good support. ? Do not exercise so much that you hurt yourself, feel dizzy, or get very short of breath. Where to find more information ? [place] Department of Health and Human Services: www.hhs.gov ? Centers for Disease Control and Prevention: www.cdc.gov Contact a health care provider: ? Before starting a new exercise program. ? If you have questions or concerns about your weight. ? If you have a medical problem that keeps you from exercising. Get help right away if: ? You have any of the following while exercising: ? Injury. ? Dizziness. ? Difficulty breathing or shortness of breath that does not go away when you stop exercising. ? Chest pain. ? Rapid heartbeat. These symptoms may represent a serious problem that is an emergency. Do not wait to see if the symptoms will go away. Get medical help right away. Call your local emergency services (911 in the [place] Do not drive yourself to the hospital. Summary ? Getting regular exercise is e (more content not included)... [facility] Ambulatory Visit Summaryon 0 07-20-2023 Ambulatory Visit Summary DASHA MEJIA :1970 Visit Date:07/20/2023 Ambulatory Visit Instructions Your Diagnosis Morbid obesity due to excess calories BMI 37.0-37.9, adult Your Care Team Attending Physician - MELANY SCHUMACHER CNP Primary Care Physician - MELANY SCHUMACHER CNP This Is Your Medications List Misc Prescription (Handicap placard) Misc Prescription (lift chair) albuterol (albuterol HFA 90 mcg/inh MDI) diclofenac topical (Voltaren Arthritis Pain 1% topical gel) fluticasone-salmet ricci (Advair 250 mcg-50 mcg Powder) phentermine (Adipex-P 37.5 mg oral capsule) sertraline (sertraline 50 mg Tab) Procedures Performed Tear of biceps tendon (11/24/2018), Appendectomy, Bilateral tubal ligation, Meniscectomy of knee, Rotator cuff, Rotator cuff, Tonsillectomy. Discharge Vitals Temperature (Temporal Artery) 36.9 ?C Heart Rate (Peripheral) 62 Respiratory Rate 16 Blood Pressure 130/76 Height 160 cm Height 63 in Weight 91.4 kg Weight 201.08 lb BMI 35.7 What to do next Scheduled Follow-Up Appointments Tuesday 9:20 AM EST With: MELANY SCHUMACHER CNP Where: [facility] [place] [facility] [address] [place] [address]-\.br\ You Need to Schedule the Following Appointments\.br\ Follow Up with MELANY SCHUMACHER CNP, [facility] When: Within 4 weeks\.br\ Comments:\.br\ Weight management\.br\ Where:\.br\ [address]\.br\ [place] [address]\.br\ Business (1)\.br\ \.br\ Medications\.br\ What How Much When Why Instructions\.br\ Unchanged albuterol (albuterol HFA 90 mcg/ inh MDI) 1 Puffs Inhalation Every 4 hours as needed for for wheezing/shortnes s of breath\.br\ Unchanged diclofenac topical (Voltaren Arthritis Pain 1% topical gel) 2 Gram Topical 4 times a day Arthritis\.br\ Unchanged fluticasone-salme terol (Advair 250 mcg-50 mcg Powder) See instructions 1 puff BID rinse mouth and throat after use \.br\ Unchanged Misc Prescription (Handicap placard) See instructions Use as directed. Expiration 5 years \.br\ Unchanged Misc Prescription (lift chair) See instructions Osteoarthritis Chronic back pain History of rotator cuff surgery Other chronic pain Lift Chair \.br\ Unchanged phentermine (Adipex-P 37.5 mg oral capsule) 1 Capsules By Mouth Every day Morbid obesity due to excess calories Medication management\.br\ Unchanged sertraline (sertraline 50 mg Tab) 1 Tablets By Mouth Every day Major depressive disorder, single episode in full remission Morbid obesity due to excess calories Obesity due to excess calories\.br\ Allergies\.br\ traMADol (Tachycardia, Nausea)\.br\ Problems\.br\ Ongoing - Any problem that you are currently receiving treatment for.\.br\ Anxiety, generalized\.br\ Chronic back pain\.br\ GERD (gastroesophageal reflux disease)\.br\ History of rotator cuff surgery\.br\ Hypertension\.br\ Major depressive disorder, single episode in full remission\.br\ Mild persistent asthma\.br\ Morbid obesity due to excess calories\.br\ Obesity due to excess calories\.br\ Sciatica\.br\ Sleep difficulties\.br\ Historical - Any problem that you are no longer receiving treatment for.\.br\ BMI 39.0-39.9,adult\. 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 Please share your experience with us by completing your survey. We appreciate your feedback and thank you for choosing us for your care.\.br\ \.br\ [facility] Family Medicine Office/Clini c Noteon 07-20-2023 Family Medicine Office/Clinic Note Chief Complaint adipex f/u HPI Staff Patient presents for Adipex follow up. Weight management Sleeping well: Having problems falling and staying asleep. Sleeps about 4 hours a night. It is not medication related. Chest pain:No Tremors:No Headaches:No Heart fluttering:No Blurred Vision:No Last BMI: 36.09 Last Weight: 92.4 Current BMI: 35.7 Current Weight: 91.4 GAD7 7 PHQ9 8 History of Present Illness Patient presents today in f/u for weight management. She started phentermine in April 2023. Today is the three month check for weight loss. She lost 2 pounds since her last visit. She reports she has not been exercising and the holidays were not helpful to her starting a weight loss plan. She is aware the Adipex will not be prescribed today at this visit. She declines a referral to the sap technical developer at [facility]. Review of Systems PHQ Score Initial Depression Screen Score: 1 SCORE Constitutional: no fever, no chills, no sweats, no weakness Respiratory: no shortness of breath, no cough, no orthopnea, no wheezing Cardiovascular: no chest pain, no palpitations, no edema Additional ROS info: Except as noted in the above Review of Systems and in the History of Present Illness all other systems have been reviewed and are negative or noncontributory. Physical Exam Vitals & Measurements T: 36.9 ?C(Temporal Artery) HR: 62(Peripheral) RR: 16 BP: 130/76 SpO2: 98% HT: 63 in HT: 160 cm WT: 91.4 kg WT: 201.08 lb BMI: 35.7 General: alert, no acute distress Cardiovascular: regular rate and rhythm, normal peripheral perfusion Respiratory: Lungs CTA, respirations non labored Extremities: no deformity, no trauma Neurological: oriented x 4, LOC appropriate for age speech normal Assessment/Plan 1. Morbid obesity due to excess calories (E66.01: Morbid (severe) obesity due to excess calories) Patient has lost 2 pounds since her last visit Patient has not lost the 21 pounds in 3 months as previously discussed Encouraged to continue with portion control and daily exercise No refill of Adipex today at this visit f/u in 4 weeks Ordered: Body Mass Index (BMI) documented 3008F Depression Screening Negative 3352F Influenza immunization status assessed 1030F Medication list documented in medical record [id number] 2. BMI 37.0-37.9, adult (Z68.37: Body mass index [BMI] 37.0-37.9, adult) Patient has lost 2 pounds since her last visit Patient has not lost the 21 pounds in 3 months as previously discussed Encouraged to continue with portion control and daily exercise No refill of Adipex today at this visit f/u in 4 weeks Ordered: Body Mass Index (BMI) documented 3008F Depression Screening Negative 3352F Influenza immunization status assessed 1030F Medication list documented in medical record [id number] Follow-up With When Contact Information MELANY SCHUMACHER CNP, FAM Within 4 weeks [address] [place] [address] Business (1) Additional Instructions: Weight management Patient Education BMI for Adults Problem List/Past Medical History Ongoing Anxiety, generalized Chronic back pain GERD (gastroesophageal reflux disease) History of rotator cuff surgery Hypertension Major depressive disorder, single episode in full remission Mild persistent asthma Morbid obesity due to excess calories Obesity due to excess calories Sciatica Sleep difficulties Historical BMI 39.0-39.9,adult Moderate depressive disorder 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 Medications Adipex-P 37.5 mg oral capsule, 37.5 mg= 1 cap(s), Oral, Daily Advair 250 mcg-50 mcg Powder, See Instructions, 4 refills albuterol HFA 90 mcg/inh MDI, 1 puff(s), Inhalation, q4hr, PRN, 6 refills Handicap placard, See Instructions lift chair, See Instructions sertraline 50 mg Tab, 50 mg= 1 tab(s), Oral, Daily, 1 refills Voltaren Arthritis Pain 1% topical gel, 2 gm, Topical, QID, 6 refills Allergies traMADol (Tachycardia, Nausea) Social History Alcohol - Denies Alcohol Use, 04/20/2022 Household alcohol concerns: No., 08/12/2022 Substance Abuse - Denies Substance Abuse, 12/07/2019 Household substance abuse concerns: No., 08/12/2022 Tobacco - Denies Tobacco Use, 07/07/2020 Never (less than 100 in lifetime) Tobacco Use:. Never Smokeless Tobacco Use:. Household tobacco concerns: No., 07/20/2023 Family History Hypertension: Mother. Stroke: Father. Immunizations Vaccine Date Status Comments influenza virus vaccine, inactivated - Not Given Patient Refuses Patient refused influenza virus vaccine, inactivated - Not Given Postpone due to refusal influenza virus vaccine, inactivated - Not Given Postpone due to refusal influenza virus vaccine, inactivated - Not Given Postpone due to refusal influenza virus vaccine, inactivated - No (more content not included)... [facility] Comment on above: Result Comment: Elec tronically Signed By: MELANY SCHUMACHER CNP\.gallo\Date and Time Signed: 07/20/23 15:12 EST Patient Educationon 07-20-19 Patient Education Nutrition BMI for Adults What is BMI? Body mass index (BMI) is a number that is calculated from a person's weight and height. BMI can help estimate how much of a person's weight is composed of fat. BMI does not measure body fat directly. Rather, it is an alternative to procedures that directly measure body fat, which can be difficult and expensive. BMI can help identify people who may be at higher risk for certain medical problems. What are BMI measurements used for? BMI is used as a screening tool to identify possible weight problems. It helps determine whether a person is obese, overweight, a healthy weight, or underweight. BMI is useful for: ? Identifying a weight problem that may be related to a medical condition or may increase the risk for medical problems. ? Promoting changes, such as changes in diet and exercise, to help reach a healthy weight. BMI screening can be repeated to see if these changes are working. How is BMI calculated? BMI involves measuring your weight in relation to your height. Both height and weight are measured, and the BMI is calculated from those numbers. This can be done either in [place] ([place] or metric measurements. Note that charts and online BMI calculators are available to help you find your BMI quickly and easily without having to do these calculations yourself. To calculate your BMI in Indian ([place] measurements: 1. Measure your weight in pounds (lb). 2. Multiply the number of pounds by 703. ? For example, for a person who weighs 180 lb, multiply that number by 703, which equals 126,540. 3. Measure your height in inches. Then multiply that number by itself to get a measurement called inches squared. ? For example, for a person who is 70 inches tall, the inches squared measurement is 70 inches x 70 inches, which equals 4,900 inches squared. 4. Divide the total from step 2 (number of lb x 703) by the total from step 3 (inches squared): 126,540 ? 4,900 = 25.8. This is your BMI. To calculate your BMI in metric measurements: 1. Measure your weight in kilograms (kg). 2. Measure your height in meters (m). Then multiply that number by itself to get a measurement called meters squared. ? For example, for a person who is 1.75 m tall, the meters squared measurement is 1.75 m x 1.75 m, which is equal to 3.1 meters squared. 3. Divide the number of kilograms (your weight) by the meters squared number. In this example: 70 ? 3.1 = 22.6. This is your BMI. What do the results mean? BMI charts are used to identify whether you are underweight, normal weight, overweight, or obese. The following guidelines will be used: ? Underweight: BMI less than 18.5. ? Normal weight: BMI between 18.5 and 24.9. ? Overweight: BMI between 25 and 29.9. ? Obese: BMI of 30 or above. Keep these notes in mind: ? Weight includes both fat and muscle, so someone with a muscular build, such as an athlete, may have a BMI that is higher than 24.9. In cases like these, BMI is not an accurate measure of body fat. ? To determine if excess body fat is the cause of a BMI of 25 or higher, further assessments may need to be done by a health care provider. ? BMI is usually interpreted in the same way for men and women. Where to find more information For more information about BMI, including tools to quickly calculate your BMI, go to these websites: ? Centers for Disease Control and Prevention: www.cdc.gov ? [place] [employer]: www.heart.org ? National Heart, Lung, and Blood [place]: www.nhlbi.nih.gov Summary ? Body mass index (BMI) is a number that is calculated from a person's weight and height. ? BMI may help estimate how much of a person's weight is composed of fat. BMI can help identify those who may be at higher risk for certain medical problems. ? BMI can be measured using Indian measurements or metric measurements. ? BMI charts are used to identify whether you are underweight, normal weight, overweight, or obese. This information is not intended to replace advice given to you by your health care provider. Make sure you discuss any questions you have with your health care provider. Document Revised: 03/05/2020 Document Reviewed: 01/11/2020 Elsevier Patient Education ? [address] [facility] Patient Correspondenceon Patient Correspondence [phone] [id number] Normal [facility] XR knee LT 3V - NOT FOR ER U Geronimo 12-21-2022 XR knee LT 3V - NOT FOR ER USE [facility] [place] [address] XRay Report Signed Patient: Dasha Mejia MR#: [id number] : 1970 Acct:[id number] Age/Sex: 52 / F ADM Date: 12/21/22 [place] [facility] [place] Room: Type: [facility] Attending Dr: Ariel Mckeon MD Copies to: Ariel Mckeon MD Ordering Provider: Ariel Mckeon MD Date of Service: 12/21/22 XR/XR knee LT 3V - NOT FOR ER USE: Chondromalacia, left knee LEFT KNEE - 3 views CLINICAL HISTORY: Chondromalacia left knee COMPARISON: Knee series 05/10/2022 FINDINGS: Mild degenerative changes without acute bony process. Small knee joint effusion. XR/XR knee LT 3V - NOT FOR ER USE IMPRESSION: MILD DEGENERATIVE CHANGES OF THE LEFT KNEE WITHOUT ACUTE BONY PROCESS. Impression dictated by: Julian Cortez Jr., D.O.12/21/2022 1:26 PM Dictation Location: [place] [address] Transcribed By: [facility] 12/21/22 132 Dictated By: Julian Cortez Jr, DO 12/21/22 1325 Signed By: 12/21/22 1326 [facility] Albumin [Mass/volume] in Ser um or PlasmaOrdered By: Ariel Mckeon on 08-11-2022 Albumin [Mass/Vol] 4.0 g/dL 3.2-5.5 [facility] Basophils Auto (Bld) [#/Vol] Ordered By: Ariel Mckeon on 08-11-2022 Basophils (Bld) [#/Vol] 0.1 10*3/uL 0.0-0.2 [facility] Basophils/100 WBC Auto (Bld) Ordered By: Ariel Mckeon on 08-11-2022 Basophils/100 WBC (Bld) 1.0 % . [facility] Complete Blood Count Auto Di ffon 08-11-2022 Basophils (Bld) [#/Vol] 0.1 10*3/uL Normal 0.0-0.2 [facility] Comment on above: Result Comment: PERF ORMED BY: [place] [address] PATHOLOGIST WOOL SAMPLER MANDY HWANG M.D. Performed By: #### C MP, CBC #### [address] Basophils/100 WBC (Bld) 1.0 % Normal . [facility] Comment on above: Performed By: #### C MP, CBC #### [address] Eosinophils (Bld) [#/Vol] 0.4 10*3/uL Normal 0.0-0.45 [facility] Comment on above: Performed By: #### C MP, CBC #### [address] Eosinophils/100 WBC (Bld) 5.3 % Normal . [facility] Comment on above: Performed By: #### C MP, CBC #### [address] Erythrocyte distribution width (RBC) [Ratio] 13.4 % Normal 11.9-15.3 [facility] Comment on above: Performed By: #### C MP, CBC #### [address] Hematocrit (Bld) [Volume fraction] 45.1 % Normal 34.0-46.4 [facility] Comment on above: Performed By: #### C MP, CBC #### [facility] [address] Hemoglobin (Bld) [Mass/Vol] 15.2 g/dL Normal 11.8-15.4 [facility] Comment on above: Performed By: #### C MP, CBC #### [address] Lymphocytes (Bld) [#/Vol] 2.7 10*3/uL Normal 1.00-4.8 [facility] Comment on above: Performed By: #### C MP, CBC #### [address] Lymphocytes/100 WBC (Bld) 32.5 % Normal . [facility] Comment on above: Performed By: #### C MP, CBC #### [address] MCH (RBC) [Entitic mass] 29.0 pg Normal 24.7-34.3 [facility] Comment on above: Performed By: #### C MP, CBC #### [address] MCV (RBC) [Entitic vol] 86.3 fL Normal 80-100 [facility] Comment on above: Performed By: #### C MP, CBC #### [address] Mean Corpuscular HGB Conc 33.6 g/dL Normal 32.0-35.0 [facility] Comment on above: Performed By: #### C MP, CBC #### [address] Monocytes (Bld) [#/Vol] 0.5 10*3/uL Normal 0.0-0.8 [facility] Comment on above: Performed By: #### C MP, CBC #### [address] Monocytes/100 WBC (Bld) 6.4 % Normal . [facility] Comment on above: Performed By: #### C MP, CBC #### [facility] [address] Neutrophils (Bld) [#/Vol] 4.5 10*3/uL Normal 1.8-7.7 [facility] Comment on above: Performed By: #### C MP, CBC #### [facility] [address] Neutrophils/100 WBC (Bld) 54.8 % Normal . [facility] Comment on above: Performed By: #### C MP, CBC #### [facility] [address] NRBC% 0.2 /100{WBC} Normal 0-0.5 [facility] Comment on above: Performed By: #### C MP, CBC #### [facility] [address] Platelet mean volume (Bld) [Entitic vol] 8.8 fL Normal 6.3-10.7 [facility] Comment on above: Performed By: #### C MP, CBC #### [facility] [address] [place] [address] [place] Platelets (Bld) [#/Vol] 263 10*3/uL Normal 150-450 [facility] Comment on above: Performed By: #### C MP, CBC #### [facility] [address] RBC (Bld) [#/Vol] 5.22 10*6/uL High 3.60-5.00 [facility] Comment on above: Performed By: #### C MP, CBC #### [facility] [address] [place] [address] [place] WBC (Bld) [#/Vol] 8.3 10*3/uL Normal 3.8-11.6 [facility] Comment on above: Performed By: #### C MP, CBC #### [facility] [address] Comprehensive Metabolic Pane ravi 08-11-2022 Albumin [Mass/Vol] 4.0 g/dL Normal 3.2-5.5 [facility] Comment on above: Performed By: #### C MP, CBC #### [address] Albumin/Globulin [Mass ratio] 1.5 {ratio} Normal [facility] Comment on above: Performed By: #### C MP, CBC #### [address] ALP [Catalytic activity/Vol] 85 U/L Normal 32-92 [facility] Comment on above: Result Comment: PERF ORMED BY: [place] [address] PATHOLOGIST [employer]OL SAMPLER MANDY HWANG M.D. Performed By: #### C MP, CBC #### [address] ALT [Catalytic activity/Vol] 27 U/L Normal 10-60 [facility] Comment on above: Performed By: #### C MP, CBC #### [address] Anion gap [Moles/Vol] 9.7 mmol/L Normal 6.0-15.0 [facility] Comment on above: Performed By: #### C MP, CBC #### [address] AST [Catalytic activity/Vol] 23 U/L Normal 10-42 [facility] Comment on above: Performed By: #### C MP, CBC #### [facility] [address] [place] [address] [place] Bilirubin [Mass/Vol] 0.7 mg/dL Normal 0.3-1.2 [facility] Comment on above: Performed By: #### C MP, CBC #### [address] Calcium [Mass/Vol] 9.5 mg/dL Normal 8.2-10.2 [facility] Comment on above: Performed By: #### C MP, CBC #### [facility] [address] [place] [address] [place] Chloride [Moles/Vol] 105 mmol/L Normal 95-114 [facility] Comment on above: Performed By: #### C MP, CBC #### [facility] [address] CO2 [Moles/Vol] 26.0 mmol/L Normal 22.0-30.0 [facility] Comment on above: Performed By: #### C MP, CBC #### [address] Creatinine [Mass/Vol] 0.91 mg/dL Normal 0.44-1.03 [facility] Comment on above: Performed By: #### C MP, CBC #### [address] Estimated GFR ( Ginger > 60 [facility] Comment on above: Result Comment: GFR estimated reference range: According to KDOQI guidelines, <60 ml/min/1.73m2 is sufficient to diagnose a patient with chronic kidney disease. Performed By: #### C MP, CBC #### [place] [address] [place] Estimated GFR (Non- Am > 60 [facility] Comment on above: Performed By: #### C MP, CBC #### [address] Globulin (S) [Mass/Vol] 2.6 g/dL Normal [facility] Comment on above: Performed By: #### C MP, CBC #### [place] [address] [place] Glucose [Mass/Vol] 99 mg/dL Normal 70-100 [facility] Comment on above: Result Comment: [place] Glucose Reference Range is dependent on time and content of last meal. Glucose of more than 200 mg/dL in a nonstressed, ambulatory subject supports the diagnosis of Diabetes Mellitus. ADA recommended reference range Performed By: #### C MP, CBC #### [place] [address] [place] Potassium [Moles/Vol] 4.7 mmol/L Normal 3.5-5.1 [facility] Comment on above: Performed By: #### C MP, CBC #### [facility] [address] [place] [address] [place] Protein [Mass/Vol] 6.6 g/dL Normal 6.1-7.9 [facility] Comment on above: Performed By: #### C MP, CBC #### [facility] [address] [place] [address] [place] Sodium [Moles/Vol] 136 mmol/L Normal 136-146 [facility] Comment on above: Performed By: #### C MP, CBC #### [facility] [address] [place] [address] [place] Urea nitrogen [Mass/Vol] 18 mg/dL Normal 9-23 [facility] Comment on above: Performed By: #### C MP, CBC #### [facility] [address] [place] [address] [place] Creatinine and Glomerular fi ltration rate.predicted panel (S/P/Bld)Ordered By: Ariel Mckeon on 08-11-2022 Creatinine [Mass/Vol] 0.91 mg/dL 0.44-1.03 [facility] Eosinophils Auto (Bld) [#/Vo l]Ordered By: Ariel Mckeon on 08-11-2022 Eosinophils (Bld) [#/Vol] 0.4 10*3/uL 0.0-0.45 [facility] Eosinophils/100 WBC Auto (Bl d)Ordered By: Ariel Mckeon on 08-11-2022 Eosinophils/100 WBC (Bld) 5.3 % . [facility] Erythrocyte distribution wid th Auto (RBC) [Ratio]Ordered By: Ariel Mckeon on 08-11-2022 Erythrocyte distribution width (RBC) [Ratio] 13.4 % 11.9-15.3 [facility] Estimated glomerular filtrat ion rate (GFR) non- AmericanOrdered By: Ariel Mckeon on 08-11-2022 GFR/1.73 sq M.predicted among non-blacks MDRD (S/P/Bld) [Vol rate/Area] > 60 mL/Min [facility] Globulin Calc (S) [Mass/Vol] Ordered By: Ariel Mckeon on 08-11-2022 Globulin (S) [Mass/Vol] 2.6 g/dL [facility] Hematocrit Auto (Bld) [Volum e fraction]Ordered By: Ariel Mckeon on 08-11-2022 Hematocrit (Bld) [Volume fraction] 45.1 % 34.0-46.4 [facility] Hemoglobin [Mass/volume] in BloodOrdered By: Ariel Mckeon on 08-11-2022 Hemoglobin (Bld) [Mass/Vol] 15.2 g/dL 11.8-15.4 [facility] Leukocytes [#/volume] correc kristofer for nucleated erythrocytes in Blood by Automated counOrdered By: Ariel Mckeon on 08-11-2022 WBC corrected for nucl RBC Auto (Bld) [#/Vol] 8.3 10*3/uL 3.8-11.6 [facility] Lymphocytes Auto (Bld) [#/Vo l]Ordered By: Ariel Mckeon on 08-11-2022 Lymphocytes (Bld) [#/Vol] 2.7 10*3/uL 1.00-4.8 [facility] Lymphocytes/100 WBC Auto (Bl d)Ordered By: Ariel Mckeon on 08-11-2022 Lymphocytes/100 WBC (Bld) 32.5 % . [facility] MCH Auto (RBC) [Entitic mass ]Ordered By: Ariel Mckeon on 08-11-2022 MCH (RBC) [Entitic mass] 29.0 pg 24.7-34.3 [facility] MCHC Auto (RBC) [Mass/Vol]Or dered By: Ariel Mckeon on 08-11-2022 MCHC (RBC) [Mass/Vol] 33.6 g/dL 32.0-35.0 [facility] MCV Auto (RBC) [Entitic vol] Ordered By: Ariel Mckeon on 08-11-2022 MCV (RBC) [Entitic vol] 86.3 fL 80-100 [facility] Monocytes Auto (Bld) [#/Vol] Ordered By: Ariel Mckeon on 08-11-2022 Monocytes (Bld) [#/Vol] 0.5 10*3/uL 0.0-0.8 [facility] Monocytes/100 WBC Auto (Bld) Ordered By: Ariel Mckeon on 08-11-2022 Monocytes/100 WBC (Bld) 6.4 % . [facility] Neutrophils Auto (Bld) [#/Vo l]Ordered By: Ariel Mckeon on 08-11-2022 Neutrophils (Bld) [#/Vol] 4.5 10*3/uL 1.8-7.7 [facility] Neutrophils/100 WBC Auto (Bl d)Ordered By: Ariel Mckeon on 08-11-2022 Neutrophils/100 WBC (Bld) 54.8 % . [facility] No Panel InformationOrdered By: Ariel Mckeon on 08-11-2022 Estimated GFR () > 60 mL/Min [facility] Comment on above: GFR estimated refere nce range: According to KDOQI guidelines, <60 ml/min/1.73m2 is sufficient to diagnose a patient with chronic kidney disease. Pharmacy Creatinine Clearance (Chem N/A [facility] Nucleated erythrocytes [Pres ence] in Blood by Automated countOrdered By: Ariel Mckeon on 08-11-2022 Nucleated RBC Auto Ql (Bld) 0.2 /100{WBC} 0-0.5 [facility] Platelet mean volume Auto (B ld) [Entitic vol]Ordered By: Ariel Mckeon on 08-11-2022 Platelet mean volume (Bld) [Entitic vol] 8.8 fL 6.3-10.7 [facility] Platelets Auto (Bld) [#/Vol] Ordered By: Ariel Mckeon on 08-11-2022 Platelets (Bld) [#/Vol] 263 10*3/uL 150-450 [facility] Protein [Mass/volume] in Ser um or PlasmaOrdered By: Ariel Mckeon on 08-11-2022 Protein [Mass/Vol] 6.6 g/dL 6.1-7.9 [facility] RBC Auto (Bld) [#/Vol]Ordere d By: Ariel Mckeon on 08-11-2022 RBC (Bld) [#/Vol] 5.22 10*6/uL 3.60-5.00 [facility] Serum or plasma alanine rendon otransferase measurement without P-5'-P (enzymatic activiOrdered By: Ariel Mckeon on 08-11-2022 ALT No additional P-5'-P [Catalytic activity/Vol] 27 U/L 10-60 [facility] Serum or plasma albumin/glob ulin mass ratioOrdered By: Ariel Mckeon on 08-11-2022 Albumin/Globulin [Mass ratio] 1.5 {ratio} [facility] Serum or plasma alkaline charles sphatase measurement (enzymatic activity/volume)Ordered By: Ariel Mckeon on 08-11-2022 ALP [Catalytic activity/Vol] 85 U/L 32-92 [facility] Serum or plasma anion gap de terminationOrdered By: Ariel Mckeon on 08-11-2022 Anion gap [Moles/Vol] 9.7 mmol/L 6.0-15.0 [facility] Serum or plasma aspartate am inotransferase measurement (enzymatic activity/volume)Ordered By: Ariel Mckeon on 08-11-2022 AST [Catalytic activity/Vol] 23 U/L 10-42 [facility] Serum or plasma calcium pauline urement (mass/volume)Ordered By: Ariel Mcekon on 08-11-2022 Calcium [Mass/Vol] 9.5 mg/dL 8.2-10.2 [facility] Serum or plasma chloride ld surement (moles/volume)Ordered By: Ariel Mckeon on 08-11-2022 Chloride [Moles/Vol] 105 mmol/L 95-114 [facility] Serum or plasma glucose pauline urement (mass/volume)Ordered By: Ariel Mckeon on 08-11-2022 Glucose [Mass/Vol] 99 mg/dL 70-100 [facility] Comment on above: ADA recommended refe rence rangeRandom Glucose Reference Range is dependent on time and content of last meal. Glucose of more than 200 mg/dL in a nonstressed, ambulatory subject supports the diagnosis of Diabetes Mellitus. Serum or plasma potassium me asurement (moles/volume)Ordered By: Ariel Mckeon on 08-11-2022 Potassium [Moles/Vol] 4.7 mmol/L 3.5-5.1 [facility] Serum or plasma sodium measu rement (moles/volume)Ordered By: Ariel Mckeon on 08-11-2022 Sodium [Moles/Vol] 136 mmol/L 136-146 [facility] Serum or plasma total biliru bin measurement (mass/volume)Ordered By: Ariel Mckeon on 08-11-2022 Bilirubin [Mass/Vol] 0.7 mg/dL 0.3-1.2 [facility] Serum or plasma total carbon dioxide measurement (moles/volume)Ordered By: Ariel Mckeon on 08-11-2022 CO2 [Moles/Vol] 26.0 mmol/L 22.0-30.0 [facility] Serum or plasma urea nitroge n measurement (mass/volume)Ordered By: Ariel Mckeon on 08-11-2022 Urea nitrogen [Mass/Vol] 18 mg/dL 9-23 [facility] WBC Auto (Bld) [#/Vol]Ordere d By: Ariel Mckeon on 08-11-2022 WBC (Bld) [#/Vol] 8.3 10*3/uL 3.8-11.6 [facility] CHEMISTRYOrdered By: SYSTEM SYSTEM on 07-08-2022 25-hydroxyvitamin D3 [Mass/Vol] 15.3 ng/mL Low 30.0 - 100.0 ng/mL [facility] ALP [Catalytic activity/Vol] 81 [iU]/d Normal 21 - 98 Int._Unit/L [facility] ALT No additional P-5'-P [Catalytic activity/Vol] 23 [iU]/d Normal 6 - 46 Int._Unit/L [facility] Anion gap [Moles/Vol] 11 mmol/L Normal 6 - 16 mEq/L [facility] AST [Catalytic activity/Vol] 19 [iU]/d Normal 5 - 43 Int._Unit/L [facility] Cholesterol [Mass/Vol] 194 mg/dL Normal 120 - 200 mg/ dL [facility] Cholesterol in HDL [Mass/Vol] 48 mg/dL Invalid Interpretation Code [facility] Cholesterol in LDL [Mass/Vol] 132 mg/dL High <=129mg/dL [facility] Cholesterol in VLDL [Mass/Vol] 17 mg/dL Normal 7 - 40 mg/dL [facility] Cobalamin (Vitamin B12) [Mass/Vol] 302 pg/mL Normal 50 - 1500 pg/mL [facility] GFR/1.73 sq M.predicted among blacks MDRD (S/P/Bld) [Vol rate/Area] mL/min/1.73 m2 Normal >=59mL/min/1.73 m2 [facility] Chem S GFR/1.73 sq M.predicted among non-blacks MDRD (S/P/Bld) [Vol rate/Area] mL/min/1.73 m2 Normal >=59mL/min/1.73 m2 [facility] Chem S Globulin (S) [Mass/Vol] 3.3 g/dL Normal 1.4 - 4.0 gm/dL [facility] Triglyceride [Mass/Vol] 85 mg/dL Normal <=149mg/dL [facility] TSH Qn 2.39 m[IU]/L Normal 0.34 - 5.60 mcIU/mL [facility] Urea nitrogen/Creatinine [Mass ratio] 20 mg/mg Normal 10 - 20 [facility] Comprehensive Metabolic Pane ravi 07-08-2022 ALP [Catalytic activity/Vol] 81 U/L [employer] Other ALT [Catalytic activity/Vol] 23 U/L [employer] Other AST [Catalytic activity/Vol] 19 U/L [employer] Other Comprehensive Metabolic Panel [employer] Other Comprehensive Metabolic Panel >60 [employer] Other Comprehensive Metabolic Panel 3.3 [employer] Other Laboratory - Chemistry and C hemistry - challengeOrdered By: SYSTEM SYSTEM on 07-08-2022 Albumin [Mass/Vol] 4.3 g/dL [facility] Albumin/Globulin [Mass ratio] 1.3 {ratio} [facility] Bilirubin [Mass/Vol] 0.7 mg/dL [facility] Calcium [Mass/Vol] 9.5 mg/dL [facility] Chloride [Moles/Vol] 103 mmol/L [facility] CO2 [Moles/Vol] 27 mmol/L [facility] Creatinine [Mass/Vol] 0.9 mg/dL [facility] Glucose [Mass/Vol] 86 mg/dL [facility] Potassium [Moles/Vol] 4.0 mmol/L [facility] Protein [Mass/Vol] 7.6 g/dL [facility] Sodium [Moles/Vol] 137 mmol/L [facility] Urea nitrogen [Mass/Vol] 18 mg/dL [facility] Thyroid Stim Hormone w/Rflxo n 07-08-2022 Thyroid Stim Hormone w/Rflx 2.39 [employer] [facility] [employer] Other Vitamin D 25 Hydroxy Totalon 07-08-2022 Vitamin D 25 Hydroxy Total 15.3 [employer] Other MR knee LT wo conon 05-21-20 MR knee LT wo con [facility] Main [place] [address] [place] [address] MRI Report Signed Patient: Dasha Mejia MR#: [id number] : 1970 Acct:[id number] Age/Sex: 52 / F ADM Date: 05/21/22 Loc: Room: Type: [facility] Attending Dr: Ariel Mckeon MD Copies to: Ariel Mckeon MD Ordering Provider: Ariel Mckeon MD Date of Service: 05/21/22 MR/MR knee LT wo con: Internal derangement of left knee EXAMINATION: MRI OF THE LEFT KNEE CLINICAL DATA: Generalized left knee pain. COMPARISON: X-ray 05/10/2022 TECHNIQUE: Multiecho, multiplanar imaging was performed with use of an extremity coil. No contrast was administered. FINDINGS: Moderate knee joint effusion with small Lacey's cyst. Mild spurring. Small amount of bone marrow edema is seen along the tibial spines with questionable nondisplaced fracture involving the tibial plateau best seen on series 5 image 14. No significant soft tissue swelling. Chondromalacia involving the cartilage of the patella. Muscle groups are grossly intact. ACL and PCL appear intact. Medial meniscus appears intact. Lateral meniscus appears intact. Quadriceps tendon appears intact. Patellar tendon appears intact. MCL appears intact. LCL complex appears intact. MR/MR knee LT wo con IMPRESSION: SMALL AMOUNT OF BONE MARROW EDEMA SEEN ALONG THE TIBIAL SPINES WITH QUESTIONABLE NONDISPLACED FRACTURE INVOLVING THE TIBIAL PLATEAU BEST SEEN ON SERIES 5 IMAGE 14. THERE IS ASSOCIATED MODERATE JOINT EFFUSION. CHONDROMALACIA INVOLVING THE PATELLA. NO INTERNAL DERANGEMENT IS SEEN. MILD DEGENERATIVE CHANGE. Impression dictated by: Julian Cortez Jr., D.O.05/21/2022 1:36 PM Dictation Location: [place] [address] Transcribed By: [facility] 05/21/22 1336 Dictated By: Julian Cortez Jr, DO 05/21/22 1327 Signed By: 05/21/22 1336 Normal [facility] XR knee BI 2Von 05-10-2022 XR knee BI 2V [facility] Main [place] [address] [place] [address] XRay Report Signed Patient: Dasha Mejia MR#: [id number] 87 : 1970 Acct:[id number] Age/Sex: 52 / F ADM Date: 05/10/22 Loc: [facility] Room: Type: [facility] Attending Dr: Ariel Mckeon MD Copies to: Ariel Mckeon MD Ordering Provider: Airel Mckeon MD Date of Service: 05/10/22 XR/XR knee BI 2V: Pain in right knee;Pain in left knee XR knee BI 2V 05/10/2022 10:18 AM SIGNS AND SYMPTOMS: Bilateral knee pain PROTOCOL: Frontal and lateral radiographs of the bilateral knees COMPARISON: None FINDINGS: There is minimal narrowing of the medial weightbearing joint spaces with mild spurring of the left knee weightbearing compartments. There is a small left-sided joint effusion. There is mild narrowing of the left patellofemoral joint space. There is no soft tissue swelling. No evidence of fracture. No dislocation or subluxation. XR/XR knee BI 2V IMPRESSION: No acute bony injury. Mild degenerative changes are noted predominantly on the left with a small left-sided joint effusion. Impression dictated by: Wally Short M.D.05/10/2022 2:45 PM Dictation Location: [place] [address] Transcribed By: [facility] 05/10/22 1445 Dictated By: Wally Short II, MD 05/10/22 1439 Signed By: 05/10/22 1445 Normal [facility] XR shoulder RT min 2V*on XR shoulder RT min 2V* [facility] Main [address] [address] XRay Report Signed Patient: Dasha Mejia MR#: [id number] 87 : 1970 Acct:[id number] Age/Sex: 52 / F ADM Date: 04/12/22 Loc: [facility] [place] Room: Type: [facility] Attending Dr: Ariel Mckeon MD Copies to: Ariel Mckeon MD Ordering Provider: Ariel Mckeon MD Date of Service: 04/12/22 XR/XR shoulder RT min 2V*: Right shoulder tendinitis RIGHT SHOULDER - 3 views CLINICAL HISTORY: Follow-up after right arthroscopy and supraspinatus tendon repair COMPARISON: 01/07/2022 AP, Y and Grashey views were obtained. There is a new anchor pin at the superior humeral head. There is suspected decompression with resection at the distal clavicle. There is no acute fracture or dislocation. There are no significant soft tissue abnormalities. XR/XR shoulder RT min 2V* IMPRESSION: NEW POSTOPERATIVE CHANGES. NO OTHER ACUTE BONY FINDINGS. Impression dictated by: Socorro Leonard M.D.04/12/2022 2:07 PM Dictation Location: [place] [address] Transcribed By: [facility] 04/12/22 140 Dictated By: Socorro Leonard MD 04/12/22 1405 Signed By: 04/12/22 1407 [facility] COVID-19 [facility] [place] SARS-CoV-2 (COVID-19) RNA ANANT+probe Ql (Unsp spec) Negative Normal Negative [facility] Comment on above: Order Comment: Healt hcare Worker?: N Result Comment: Testing for SARS-CoV-2 by RT-PCR This test was developed and its performance characteristics determined by [employer] ([employer]) and validated at the [facility]. This test has not been FDA cleared or approved. This test has been authorized by FDA under an Emergency Use Authorization (EUA). This test has been validated in accordance with the FDA's Guidance Document (Policy for Diagnostics Testing in Laboratories Certified to Perform High Complexity Testing under CLIA prior to Emergency Use Authorization for Coronavirus Disease-2019 during the Public Health Emergency) issued on September 27, 2019. This test is only authorized for the duration of time the declaration that circumstances exist justifying the authorization of the emergency use of in vitro diagnostic tests for detection of SARS-CoV-2 virus and/or diagnosis of COVID-19 infection under section 564(b)(1) of the Act, 21 U.S.C. 360bbb-3(b)(1), unless the authorization is terminated or revoked sooner. PERFORMED BY: [place] [address] PATHOLOGIST WOOL SAMPLER MANDY HWANG M.D. Performed By: #### C OVID 19 [facility] [place] #### [address] COVID-19 Positive/NegativeOr dered By: Ariel Mckeon on 03-29-2022 SARS-CoV-2 (COVID-19) N gene ANANT+probe Ql (Resp) Negative Negative [facility] Comment on above: Testing for SARS-CoV -2 by RT-PCRThis test was developed and its performance characteristics determined by [employer] ([employer]) and validated at the [facility]. This test has not been FDA cleared or approved. This test has been authorized by FDA under an Emergency Use Authorization (EUA). This test has been validated in accordance with the FDA's Guidance Document (Policy for Diagnostics Testing in Laboratories Certified to Perform High Complexity Testing under CLIA prior to Emergency Use Authorization for Coronavirus Disease-2019 during the Public Health Emergency) issued on September 27, 2019. This test is only authorized for the duration of time the declaration that circumstances exist justifying the authorization of the emergency use of in vitro diagnostic tests for detection of SARS-CoV-2 virus and/or diagnosis of COVID-19 infection under section 564(b)(1) of the Act, 21 U.S.C. 360bbb-3(b)(1), unless the authorization is terminated or revoked sooner. Basophils Auto (Bld) [#/Vol] Ordered By: Ariel Mckeon on 03-22-2022 Basophils (Bld) [#/Vol] 0.1 10*3/uL 0.0-0.2 [facility] Basophils/100 WBC Auto (Bld) Ordered By: Ariel Mckeon on 03-22-2022 Basophils/100 WBC (Bld) 0.8 % . [facility] Blood hemoglobin measurement (mass/volume)Ordered By: Ariel Mckeon on 03-22-2022 Hemoglobin (Bld) [Mass/Vol] 15.0 g/dL 11.8-15.4 [facility] Blood leukocytes automated c ount (number/volume)Ordered By: Ariel Mckeon on 03-22-2022 WBC (Bld) [#/Vol] 8.1 10*3/uL 4.5-11.0 [facility] Body fluid albumin measureme nt (mass/volume)Ordered By: Ariel Mckeon on 03-22-2022 Albumin (Body fld) [Mass/Vol] 3.7 g/dL 3.2-5.5 [facility] Complete Blood Count Auto Di ffon 03-22-2022 Basophils (Bld) [#/Vol] 0.1 10*3/uL Normal 0.0-0.2 [facility] Comment on above: Result Comment: PERF ORMED BY: [place] [address] PATHOLOGIST WOOL SAMPLER MANDY HWANG M.D. Performed By: #### C MP, CBC #### [facility] [address] [place] [address] [place] Basophils/100 WBC (Bld) 0.8 % Normal . [facility] Comment on above: Performed By: #### C MP, CBC #### [facility] [address] [place] [address] [place] Eosinophils (Bld) [#/Vol] 0.3 10*3/uL Normal 0.0-0.45 [facility] Comment on above: Performed By: #### C MP, CBC #### [facility] [address] [place] [address] [place] Eosinophils/100 WBC (Bld) 3.3 % Normal . [facility] Comment on above: Performed By: #### C MP, CBC #### [facility] [address] Erythrocyte distribution width (RBC) [Ratio] 12.8 % Normal 11.9-15.3 [facility] Comment on above: Performed By: #### C MP, CBC #### [facility] [address] Hematocrit (Bld) [Volume fraction] 45.5 % Normal 34.0-46.4 [facility] Comment on above: Performed By: #### C MP, CBC #### [facility] [address] Hemoglobin (Bld) [Mass/Vol] 15.0 g/dL Normal 11.8-15.4 [facility] Comment on above: Performed By: #### C MP, CBC #### [address] Lymphocytes (Bld) [#/Vol] 1.9 10*3/uL Normal 1.00-4.8 [facility] Comment on above: Performed By: #### C MP, CBC #### [place] [address] [place] Lymphocytes/100 WBC (Bld) 23.7 % Normal . [facility] Comment on above: Performed By: #### C MP, CBC #### [facility] [address] MCH (RBC) [Entitic mass] 29.4 pg Normal 24.7-34.3 [facility] Comment on above: Performed By: #### C MP, CBC #### [facility] [address] [place] [address] [place] MCV (RBC) [Entitic vol] 89.3 fL Normal 80-100 [facility] Comment on above: Performed By: #### C MP, CBC #### [address] Mean Corpuscular HGB Conc 32.9 g/dL Normal 32.0-35.0 [facility] Comment on above: Performed By: #### C MP, CBC #### [facility] [address] [place] [address] [place] Monocytes (Bld) [#/Vol] 0.5 10*3/uL Normal 0.0-0.8 [facility] Comment on above: Performed By: #### C MP, CBC #### [facility] [address] [place] [id number] [place] Monocytes/100 WBC (Bld) 6.6 % Normal . [facility] Comment on above: Performed By: #### C MP, CBC #### [facility] [address] [place] [address] [place] Neutrophils (Bld) [#/Vol] 5.3 10*3/uL Normal 1.8-7.7 [facility] Comment on above: Performed By: #### C MP, CBC #### [facility] [address] [place] [address] [place] Neutrophils/100 WBC (Bld) 65.6 % Normal . [facility] Comment on above: Performed By: #### C MP, CBC #### [facility] [address] [place] [address] [place] Nucleated RBC/100 WBC (Bld) [Ratio] 0.1 % Normal 0-0.5 [facility] Comment on above: Performed By: #### C MP, CBC #### [facility] [address] [place] [address] [place] Platelet mean volume (Bld) [Entitic vol] 9.1 fL Normal 6.3-10.7 [facility] Comment on above: Performed By: #### C MP, CBC #### [facility] [address] [place] [id number] [place] Platelets (Bld) [#/Vol] 275 10*3/uL Normal 150-450 [facility] Comment on above: Performed By: #### C MP, CBC #### [facility] [address] [place] [address] [place] RBC (Bld) [#/Vol] 5.10 10*6/uL High 3.60-5.00 [facility] Comment on above: Performed By: #### C MP, CBC #### [address] WBC (Bld) [#/Vol] 8.1 10*3/uL Normal 4.5-11.0 [facility] Comment on above: Performed By: #### C MP, CBC #### [address] Comprehensive Metabolic Pane ravi 03-22-2022 Albumin [Mass/Vol] 3.7 g/dL Normal 3.2-5.5 [facility] Comment on above: Performed By: #### C MP, CBC #### [address] Albumin/Globulin [Mass ratio] 1.3 {ratio} Normal [facility] Comment on above: Performed By: #### C MP, CBC #### [address] ALP [Catalytic activity/Vol] 74 U/L Normal 32-92 [facility] Comment on above: Result Comment: PERF ORMED BY: [place] [address] PATHOLOGIST WOOL SAMPLER MANDY HWANG M.D. Performed By: #### C MP, CBC #### [address] ALT [Catalytic activity/Vol] 25 U/L Normal 10-60 [facility] Comment on above: Performed By: #### C MP, CBC #### [address] Anion gap [Moles/Vol] 12.7 mmol/L Normal 6.0-15.0 [facility] Comment on above: Performed By: #### C MP, CBC #### [address] AST [Catalytic activity/Vol] 20 U/L Normal 10-42 [facility] Comment on above: Performed By: #### C MP, CBC #### [address] [place] [address] [place] Bilirubin [Mass/Vol] 0.5 mg/dL Normal 0.3-1.2 [facility] Comment on above: Performed By: #### C MP, CBC #### [facility] [address] Calcium [Mass/Vol] 9.6 mg/dL Normal 8.2-10.2 [facility] Comment on above: Performed By: #### C MP, CBC #### [address] Chloride [Moles/Vol] 103 mmol/L Normal 95-114 [facility] Comment on above: Performed By: #### C MP, CBC #### [address] CO2 [Moles/Vol] 25.9 mmol/L Normal 22.0-30.0 [facility] Comment on above: Performed By: #### C MP, CBC #### [address] Creatinine [Mass/Vol] 0.84 mg/dL Normal 0.44-1.03 [facility] Comment on above: Performed By: #### C MP, CBC #### [address] Estimated GFR ( Ginger > 60 [facility] Comment on above: Result Comment: GFR estimated reference range: According to KDOQI guidelines, <60 ml/min/1.73m2 is sufficient to diagnose a patient with chronic kidney disease. Performed By: #### C MP, CBC #### [address] Estimated GFR (Non- Am > 60 [facility] Comment on above: Performed By: #### C MP, CBC #### [address] Globulin (S) [Mass/Vol] 2.8 g/dL [facility] Comment on above: Performed By: #### C MP, CBC #### [place] [id number] [place] Glucose [Mass/Vol] 94 mg/dL Normal 70-100 [facility] Comment on above: Result Comment: [place] Glucose Reference Range is dependent on time and content of last meal. Glucose of more than 200 mg/dL in a nonstressed, ambulatory subject supports the diagnosis of Diabetes Mellitus. ADA recommended reference range Performed By: #### C MP, CBC #### [facility] [address] [place] [address] [place] Potassium [Moles/Vol] 4.6 mmol/L Normal 3.5-5.1 [facility] Comment on above: Performed By: #### C MP, CBC #### [facility] [address] Protein [Mass/Vol] 6.5 g/dL Normal 6.1-7.9 [facility] Comment on above: Performed By: #### C MP, CBC #### [address] Sodium [Moles/Vol] 137 mmol/L Normal 136-146 [facility] Comment on above: Performed By: #### C MP, CBC #### [facility] [address] [place] [address] [place] Urea nitrogen [Mass/Vol] 15 mg/dL Normal 9-23 [facility] Comment on above: Performed By: #### C MP, CBC #### [place] [address] [place] Creatinine and Glomerular fi ltration rate.predicted panel (S/P/Bld)Ordered By: Ariel Mckeon on 03-22-2022 Creatinine [Mass/Vol] 0.84 mg/dL 0.44-1.03 [facility] ECG 12 lead ECGon 03-22-2022 ECG 12 lead ECG [facility] [place] [address] [place] [address] Electrocardiograph Report Signed Patient: Dasha Mejia MR#: [id number] : 1970 Acct:[id number] Age/Sex: 52 / F ADM Date: 03/22/22 Loc: PS Room: Type: DEP CLI Attending Dr: Ariel Mckeon MD Ordering Provider: Ariel Mckeon MD Date of Service: 03/22/22 ECG/ECG 12 lead ECG: RT SHOULDER ARTHROSCOPY, RCR Copies to: Test Reason : Blood Pressure : / mmHG Vent. Rate : 066 BPM Atrial Rate : 066 BPM P-R Int : 184 ms QRS Dur : 090 ms QT Int : 396 ms P-R-T Axes : 038 -49 014 degrees QTc Int : 415 ms Normal sinus rhythm Left anterior fascicular block Possible Anterior infarct , age undetermined Abnormal ECG No previous ECGs available Confirmed by [facility]OR CROSS [id number] on 03/23/2022 7:29:59 AM Referred By: DONNA MCKEON Electronically Signed By:MIGUEL ALCAZAR MD [facility] Transcribed By: MUS Signed By Waldo Alcazar MD 03/23/22 07 Normal [facility] Eosinophils Auto (Bld) [#/Vo l]Ordered By: Ariel Mckeon on 03-22-2022 Eosinophils (Bld) [#/Vol] 0.3 10*3/uL 0.0-0.45 [facility] Eosinophils/100 WBC Auto (Bl d)Ordered By: Ariel Mckeon on 03-22-2022 Eosinophils/100 WBC (Bld) 3.3 % . [facility] Erythrocyte distribution wid th Auto (RBC) [Ratio]Ordered By: Ariel Mckeon on 03-22-2022 Erythrocyte distribution width (RBC) [Ratio] 12.8 % 11.9-15.3 [facility] Estimated glomerular filtrat ion rate (GFR) non- AmericanOrdered By: Ariel Mckeon on 03-22-2022 GFR/1.73 sq M.predicted among non-blacks MDRD (S/P/Bld) [Vol rate/Area] > 60 mL/Min [facility] Globulin Calc (S) [Mass/Vol] Ordered By: Ariel Mckeon on 03-22-2022 Globulin (S) [Mass/Vol] 2.8 g/dL [facility] Hematocrit Auto (Bld) [Volum e fraction]Ordered By: Ariel Mckeon on 03-22-2022 Hematocrit (Bld) [Volume fraction] 45.5 % 34.0-46.4 [facility] Laboratory - Hematology and Cell countsOrdered By: Ariel Mckeon on 03-22-2022 Nucleated RBC/100 WBC (Bld) [Ratio] 0.1 % 0-0.5 [facility] Lymphocytes Auto (Bld) [#/Vo l]Ordered By: Ariel Mckeon on 03-22-2022 Lymphocytes (Bld) [#/Vol] 1.9 10*3/uL 1.00-4.8 [facility] Lymphocytes/100 WBC Auto (Bl d)Ordered By: Ariel Mckeon on 03-22-2022 Lymphocytes/100 WBC (Bld) 23.7 % . [facility] MCH Auto (RBC) [Entitic mass ]Ordered By: Ariel Mckeon on 03-22-2022 MCH (RBC) [Entitic mass] 29.4 pg 24.7-34.3 [facility] MCHC Auto (RBC) [Mass/Vol]Or dered By: Ariel Mckeon on 03-22-2022 MCHC (RBC) [Mass/Vol] 32.9 g/dL 32.0-35.0 [facility] MCV Auto (RBC) [Entitic vol] Ordered By: Ariel Mckeon on 03-22-2022 MCV (RBC) [Entitic vol] 89.3 fL 80-100 [facility] Monocytes Auto (Bld) [#/Vol] Ordered By: Ariel Mckeon on 03-22-2022 Monocytes (Bld) [#/Vol] 0.5 10*3/uL 0.0-0.8 [facility] Monocytes/100 WBC Auto (Bld) Ordered By: Ariel Mckeon on 03-22-2022 Monocytes/100 WBC (Bld) 6.6 % . [facility] Neutrophils Auto (Bld) [#/Vo l]Ordered By: Ariel Mckeon on 03-22-2022 Neutrophils (Bld) [#/Vol] 5.3 10*3/uL 1.8-7.7 [facility] Neutrophils/100 WBC Auto (Bl d)Ordered By: Ariel Mckeon on 03-22-2022 Neutrophils/100 WBC (Bld) 65.6 % . [facility] No Panel InformationOrdered By: Ariel Mckeon on 03-22-2022 Estimated GFR () > 60 mL/Min [facility] Comment on above: GFR estimated refere nce range: According to KDOQI guidelines, <60 ml/min/1.73m2 is sufficient to diagnose a patient with chronic kidney disease. Pharmacy Creatinine Clearance (Chem N/A [facility] Platelet mean volume Auto (B ld) [Entitic vol]Ordered By: Ariel Mckeon on 03-22-2022 Platelet mean volume (Bld) [Entitic vol] 9.1 fL 6.3-10.7 [facility] Platelets Auto (Bld) [#/Vol] Ordered By: Ariel Mckeon on 03-22-2022 Platelets (Bld) [#/Vol] 275 10*3/uL 150-450 [facility] Protein [Mass/volume] in Ser um or PlasmaOrdered By: Ariel Mckeon on 03-22-2022 Protein [Mass/Vol] 6.5 g/dL 6.1-7.9 [facility] RBC Auto (Bld) [#/Vol]Ordere d By: Ariel Mckeon on 03-22-2022 RBC (Bld) [#/Vol] 5.10 10*6/uL 3.60-5.00 [facility] Serum or plasma alanine rendon otransferase measurement without P-5'-P (enzymatic activiOrdered By: Ariel Mckeon on 03-22-2022 ALT No additional P-5'-P [Catalytic activity/Vol] 25 U/L 10-60 [facility] Serum or plasma albumin/glob ulin mass ratioOrdered By: Ariel Mckeon on 03-22-2022 Albumin/Globulin [Mass ratio] 1.3 {ratio} [facility] Serum or plasma alkaline charles sphatase measurement (enzymatic activity/volume)Ordered By: Ariel Mckeon on 03-22-2022 ALP [Catalytic activity/Vol] 74 U/L 32-92 [facility] Serum or plasma anion gap de terminationOrdered By: Ariel Mckeon on 03-22-2022 Anion gap [Moles/Vol] 12.7 mmol/L 6.0-15.0 [facility] Serum or plasma aspartate am inotransferase measurement (enzymatic activity/volume)Ordered By: Ariel Mckeon on 03-22-2022 AST [Catalytic activity/Vol] 20 U/L 10-42 [facility] Serum or plasma calcium pauline urement (mass/volume)Ordered By: Ariel Mckeon on 03-22-2022 Calcium [Mass/Vol] 9.6 mg/dL 8.2-10.2 [facility] Serum or plasma chloride ld surement (moles/volume)Ordered By: Ariel Mckeon on 03-22-2022 Chloride [Moles/Vol] 103 mmol/L 95-114 [facility] Serum or plasma glucose pauline urement (mass/volume)Ordered By: Ariel Mckeon on 03-22-2022 Glucose [Mass/Vol] 94 mg/dL 70-100 [facility] Comment on above: ADA recommended refe rence rangeRandom Glucose Reference Range is dependent on time and content of last meal. Glucose of more than 200 mg/dL in a nonstressed, ambulatory subject supports the diagnosis of Diabetes Mellitus. Serum or plasma potassium me asurement (moles/volume)Ordered By: Ariel Mckeon on 03-22-2022 Potassium [Moles/Vol] 4.6 mmol/L 3.5-5.1 [facility] Serum or plasma sodium measu rement (moles/volume)Ordered By: Ariel Mckeon on 03-22-2022 Sodium [Moles/Vol] 137 mmol/L 136-146 [facility] Serum or plasma total biliru bin measurement (mass/volume)Ordered By: Ariel Mckeon on 03-22-2022 Bilirubin [Mass/Vol] 0.5 mg/dL 0.3-1.2 [facility] Serum or plasma total carbon dioxide measurement (moles/volume)Ordered By: Ariel Mckeon on 03-22-2022 CO2 [Moles/Vol] 25.9 mmol/L 22.0-30.0 [facility] Serum or plasma urea nitroge n measurement (mass/volume)Ordered By: Ariel Mckeon on 03-22-2022 Urea nitrogen [Mass/Vol] 15 mg/dL 03-19 [facility] MR shoulder RT wo conon 08-3 MR shoulder RT wo con [facility] [address] [place] [address] MRI Report Signed Patient: Dasha Mejia MR#: [id number] : 1970 Acct:[id number] Age/Sex: 52 / F ADM Date: 02/24/22 Loc: [facility] Att[facility]: Ariel Mckeon MD Copies to: Ariel Mckeon MD Ordering Provider: Ariel Mckeon MD Date of Service: 02/24/22 MR/MR shoulder RT wo con: Internal derangement of right shoulder MR RIGHT SHOULDER CLINICAL INFORMATION: Right shoulder pain radiating down right arm with decreased range of motion. COMPARISON: None. PROCEDURE: Axial, oblique coronal, and oblique sagittal long TR images of the shoulder were obtained. FINDINGS: ROTATOR CUFF AND ASSOCIATED STRUCTURES Biceps Tendon: There is a full-thickness tear of the long head of the biceps tendon which is retracted into the proximal biceps groove by at least 2.5 cm. Rotator cuff: There is a full-thickness perforation tear of the supraspinatus tendon without tendon fiber retraction. There is a partial-thickness tear along the articular surface of the infraspinatus. The teres minor and subscapularis are grossly intact. Musculature: There is mild edema along the deltoid musculature which may be secondary to muscle strain. Bursa: No bursal effusion or thickening is seen. OSSEOUS STRUCTURES Acromioclavicular joint: There are moderate degenerative changes of the acromioclavicular joint. A type 2 acromion configuration is noted. There is no anterior or lateral acromial downsloping. Bones: No Hill-Sachs, reverse Hill-Sachs, or bony Bankart lesions are seen. There are no fractures or regions of abnormal bone marrow signal intensity. GLENOHUMERAL JOINT Joint: There is no glenohumeral joint effusion. Cartilage: No focal hyaline cartilage defects are noted. Labrum: There is increased T2 signal in the anterior and superior labrum suspicious for either chronic degenerative change or a minimally displaced tear. Other support structures: No capsular or ligamentous abnormality is seen. MR/MR shoulder RT wo con IMPRESSION: 1. There is a full-thickness perforation tear of the supraspinatus tendon without tendon fiber retraction. 2. There is a partial-thickness tear along the articular surface of the infraspinatus. 3. There is a full-thickness tear of the long head of the biceps tendon which is retracted into the proximal biceps groove by at least 2.5 cm. 4. There is increased T2 signal in the anterior and superior labrum suspicious for either chronic degenerative change or a minimally displaced tear. 5. There is mild edema along the deltoid musculature which may be secondary to muscle strain. Impression dictated by: Wally Short M.D.02/24/2022 2:37 PM Dictation Location: [place] [address] Transcribed By: [facility] 02/24/22 143 Dictated By: Wally Short II, MD 02/24/22 1427 Signed By: 02/24/22 143 [facility] Surgical Pathologyon 022 Surgical Pathology (NOTE) -- Diagnosis -- Endometrium, biopsy: Fragments of weakly proliferative endometrium with features of exogenous hormone effect. Neither atypia nor malignancy seen. Ion Stern. Electronically Signed Out 10/01/2021 Clinical Information Pre-op Diagnosis: POSTCOITAL BLEEDING, DISORDERED ENDOMETRIUM Operative Findings: ENDOMETRIAL BX Source of Specimen A: ENDOMETRIUM BIOPSY Gross Description VERA PADGETT BX [place]-red fragments, 1.0 x 0.8 x 0.2 cm in aggregate. Entirely 1cs. mpb tm Microscopic Description 2 KAVITA reviewed. Microscopic examination performed. SURGICAL PATHOLOGY CONSULTATION Patient Name: DASHA MEJIA [facility] Rec: [id number] Path Number: [id number] [facility] ANATOMIC PATHOLOGY [address] [place] [id number] [facility] Comment on above: Performed By: #### P PPVS #### [employer] [address] [place] [id number] Superintendent Marine: Kodi Harrington MD Cytologyon 09-29-2021 Cytology (NOTE) INTERPRETATION Cervical material, (ThinPrep vial, Imaging-assisted review): Specimen Adequacy: Satisfactory for evaluation. - Endocervical/trans formation zone component present. Descriptive Diagnosis: Negative for intraepithelial lesion or malignancy. 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 Prior abnormal pap: CINII High risk HPV DNA testing is requested if the diagnosis is abnormal LMP: 01/16/2018 GYNECOLOGIC CYTOLOGY REPORT Patient Name: DASHA MEJIA [facility] Rec: [id number] Path Number: [id number] [facility] ANATOMIC PATHOLOGY [address] [place] [phone] Normal [facility] Comment on above: Performed By: #### P PPVP ####[employer] [address] [address] [facility] Director: Kodi Harrington MD XR SHOULDER RIGHT (MIN 2 VIE WS)on 08-28-2021 XR SHOULDER RIGHT (MIN 2 VIEWS) EXAM: XR SHOULDER RIGHT (MIN 2 VIEWS) HISTORY: M25.511. 51-year-old female, right shoulder pain. COMPARISON: None. TECHNIQUE: Right shoulder three views, four images. FINDINGS: Acromioclavicular and glenohumeral joints are normal. Negative for calcific bursitis. IMPRESSION: Normal right shoulder. Interpreted by: Fish Wright Jr., MD Signed by: Fish Wright Jr., MD 08/28/21 Final result Normal [facility] Normal right shoulder. [facility] EXAM: XR SHOULDER RIGHT (MIN 2 VIEWS) HISTORY: M25.511. 51-year-old female, right shoulder pain. COMPARISON: None. TECHNIQUE: Right shoulder three views, four images. FINDINGS: Acromioclavicular and glenohumeral joints are normal. Negative for calcific bursitis. [facility] Fish Wright Jr., MD - 08/28/2021 EXAM: XR SHOULDER RIGHT (MIN 2 VIEWS) HISTORY: M25.511. 51-year-old female, right shoulder pain. COMPARISON: None. TECHNIQUE: Right shoulder three views, four images. FINDINGS: Acromioclavicular and glenohumeral joints are normal. Negative for calcific bursitis. IMPRESSION: Normal right shoulder. [facility] [employer] Phone: Radiology Study observation (narrative) [facility] [employer] Phone: XR SHOULDER RIGHT (MIN 2 VIE WS)Ordered By: Fish Wright on 08-28-2021 [facility] [employer] Phone: MAURICIO Screenon 07-27-2021 MAURICIO Screen Negative Normal NEG [facility] Comment on above: Performed By: #### R A ANASCN ####[address] [place], [place] [id number] Lab Director: Kodi Harrington MD#### [id number] ####[facility] [address] [place] [id number] Lab Director: Guillermo Meza MD#### CRP, SED, CDP, BMP ####[facility] W[address] [place], [place] [id number] lab Director: Matthew Borja MD Anti-dsDNA <0.5 Normal <10.0 [facility] Comment on above: Result Comment: Reference Range: <10.0 Negative 10.0-15.0 Equivocal >15.0 Positive Performed By: #### Gill Galicia ANASCN ####[facility] [address] [place], [place] [id number] Lab Director: Kodi Harrington MD#### AHB27 ####[facility] [address] [place], [place] [id number] Lab Director: Guillermo Meza MD#### CRP, SED, CDP, BMP ####[facility] Jin[address]26 [place] [address] Lab Director: Matthew Borja MD SARAH Screen 0.2 U/mL Normal <0.7 [facility] Comment on above: Result Comment: Reference Range: <0.7 Negative 0.7-1.0 Equivocal >1.0 Positive SARAH Screen includes U1RNP,RNP70,Sm,Ro(SS-A),La(SS-B),CENP,Scl-70,Tamela-1 Performed By: #### HÉCTOR ColonN ####[address] [place] [address] Lab Director: Kodi Harrington MD#### AHB27 ####[address] [id number] Lab Director: Guillermo Meza MD#### CRP, SED, CDP, BMP ####[facility] [id number] [place] [address] lab Director: Matthew Borja MD HLA Antigen B27on 07-27-2021 HLA Antigen B27 Negative Normal Negative [facility] Comment on above: Result Comment: (NOT E) INTERPRETIVE INFORMATION: HLA-B27 HLA-B27 is a serologically defined allele of the human HLA-B locus. The presence of the HLA-B27 antigen is strongly associated with ankylosing spondylitis and related disorders. This test was developed and its performance characteristics determined by [employer] [facility]. It has not been cleared or approved by the [place] Food and Drug Administration. This test was performed in a CLIA certified laboratory and is intended for clinical purposes. Performed by [facility], [address] [place] [address] [id number] [email or web address], Manda Rapp MD, Lab. Director Performed By: #### NADIA Colon ####[address] [address] Lab Director: Kodi Harrington MD#### AHB27 ####[address] [id number] Lab Director: Guillermo Meza MD#### CRP, SED, CDP, BMP ####[facility] [address] [facility] [place], [place] [id number] Lab Director: Matthew Borja MD Basic Metabolic Profon 07-24 (cont.) Normal [facility] Comment on above: Result Comment: Aver age GFR for 50-59 years old: 93 mL/min/1.73sq m Chronic Kidney Disease: <60 mL/min/1.73sq m Kidney failure: <15 mL/min/1.73sq m eGFR calculated using average adult body mass. Additional eGFR calculator available at: http://www.[employer].Alerts/multiple_crcl_2012.htm Performed By: #### R A ANASCN #### [address] [id number] [employer]: Kodi Harrington MD #### AHB27 #### [facility] [address] [place], [place] [id number] Superintendent [employer]: Guillermo Meza MD #### CRP, SED, CDP, BMP #### [facility] [address] [place], [place] [id number] Superintendent Marine: Matthew Borja MD Anion gap [Moles/Vol] 10 mmol/L Normal -17 [facility] Comment on above: Performed By: #### R MAURICIO GaliciaSCN #### [address] [id number] Superintendent [employer]: Kodi Harrington MD #### AHB27 #### [facility] [address] [place] [address] Superintendent [employer]: Guillermo Meza MD #### CRP, SED, CDP, BMP #### [facility] [address] [place] [address] Superintendent Marine: Matthew Borja MD BUN/CRE Ratio 27 High 9-20 [facility] Comment on above: Performed By: #### R A, ANASCN #### [address] [id number] Superintendent [employer]: Kodi Harrington MD #### AHB27 #### [facility] [address] [place] [address] Superintendent [employer]: Guillermo Meza MD #### CRP, SED, CDP, BMP #### [facility] [address] [place] [address] Superintendent Marine: Matthew Borja MD Calcium [Mass/Vol] 9.7 mg/dL Normal 8.6-10.4 [facility] Comment on above: Performed By: #### R A ANASCN #### [facility] [address] [place] [address] Superintendent [employer]: Kodi Harrington MD #### AHB27 #### [facility] [address] [place], [place] [id number] Superintendent [employer]: Guillermo Meza MD #### CRP, SED, CDP, BMP #### [facility] [address] [place] [address] Superintendent [employer]: Matthew Borja MD Chloride [Moles/Vol] 100 mmol/L Normal 98-107 [facility] Comment on above: Performed By: #### MAURICIO ColonSCN #### [facility] [address] [place] [address] Superintendent [employer]: Kodi Harrington MD #### AHB27 #### [facility] [address] [place], [place] [id number] Superintendent Marine: Guillermo Meza MD #### CRP, SED, CDP, BMP #### [facility] [address] [place], [place] [id number] Superintendent Marine: Matthew Borja MD CO2 [Moles/Vol] 25 mmol/L Normal 20-31 [facility] Comment on above: Performed By: #### R A ANASCN #### [facility] [address] [place] [address] Superintendent [employer]: Kodi Harrington MD #### AHB27 #### [facility] [address] [place], [place] [id number] Superintendent Marine: Guillermo Meza MD #### CRP, SED, CDP, BMP #### [facility] [address] [place], [place] 5567590 Superintendent Marine: Matthew Borja MD Creatinine [Mass/Vol] 0.88 mg/dL Normal 0.50-0.90 [facility] Comment on above: Performed By: #### R A, ANASCN #### [facility] [address] [place] [address] Superintendent [employer]: Kodi Harrington MD #### AHB27 #### [facility] [address] [place], [place] [id number] Superintendent Marine: Guillermo Meza MD #### CRP, SED, CDP, BMP #### [facility] [address] [place], [place] 2000790 Superintendent Marine: Matthew Borja MD GFR, Amer >60 Normal >60 [facility] Comment on above: Performed By: #### R A, ANASCN #### [facility] [address] [place] [address] Superintendent [employer]: Kodi Harrington MD #### AHB27 #### [facility] [address] [place], [place] [id number] Superintendent Marine: Guillermo Meza MD #### CRP, SED, CDP, BMP #### [facility] [address] [place], [place] [id number] Superintendent Marine: Matthew Borja MD GFR,non Amer >60 Normal >60 [facility] Comment on above: Performed By: #### R A, ANASCN #### [facility] [address] [place] [address] Superintendent [employer]: Kodi Harrington MD #### AHB27 #### [facility] [address] [place] [address] Superintendent [employer]: Guillermo Meza MD #### CRP, SED, CDP, BMP #### [facility] [address] [place] [address] Superintendent Marine: Matthew Borja MD Glucose [Mass/Vol] 108 mg/dL High 70-99 [facility] Comment on above: Performed By: #### R MAURICIO GaliciaSCN #### [facility] [address] [place] [address] Superintendent [employer]: Kodi Harrington MD #### AHB27 #### [facility] [address] [place], [place] [id number] Superintendent Marine: Guillermo Meza MD #### CRP, SED, CDP, BMP #### [facility] [address] [place] [address] Superintendent Marine: Matthew Borja MD Potassium [Moles/Vol] 4.8 mmol/L Normal 3.7-5.3 [facility] Comment on above: Performed By: #### NADIA Colon #### [facility] [address] [place] [address] Superintendent [employer]: Kodi Harrington MD #### AHB27 #### [facility] [address] [place], [place] [id number] Superintendent Marine: Guillermo Meza MD #### CRP, SED, CDP, BMP #### [facility] [address] [place], [place] [phone] Superintendent Marine: Matthew Borja MD Sodium [Moles/Vol] 135 mmol/L Normal 135-144 [facility] Comment on above: Performed By: #### R MAURICIO GaliciaSCN #### [facility] [address] [place] [address] Superintendent [employer]: Kodi Harrington MD #### AHB27 #### [facility] [address] [place] [address] Superintendent [employer]: Guillermo Meza MD #### CRP, SED, CDP, BMP #### [facility] [address] [place] [address] Superintendent Marine: Matthew Borja MD Urea nitrogen [Mass/Vol] 24 mg/dL High 6-20 [facility] Comment on above: Performed By: #### R A ANASCN #### [facility] [address] [place] [address] Superintendent Marine: Kodi Harrington MD #### AHB27 #### [facility] [address] [place], [place] [id number] Superintendent Marine: Guillermo Meza MD #### CRP, SED, CDP, BMP #### [facility] [address] [place] [address] Superintendent Marine: Matthew Borja MD Staging: NOT REPORTED Normal [facility] Comment on above: Performed By: #### MAURICIO ColonSCN #### [facility] [address] [place] [address] Superintendent [employer]: Kodi Harrington MD #### AHB27 #### [facility] [address] [place] [address] Superintendent Marine: Guillermo Meza MD #### CRP, SED, CDP, BMP #### [facility] [address] [place], [place] 0593190 Superintendent Marine: Matthew Borja MD C-Reactive Proteinon 01-28-2 022 CRP [Mass/Vol] 5.8 mg/L High 0.0-5.0 [facility] Comment on above: Performed By: #### R A ANASCN #### [facility] [address] [place] [address] Superintendent [employer]: Kodi Harrington MD #### AHB27 #### [facility] [address] [place], [place] [id number] Superintendent Marine: Guillermo Meza MD #### CRP, SED, CDP, BMP #### [facility] [address] [place] [address] Superintendent Marine: Matthew Borja MD CBC with Diffon 07-24-2021 Abs. Basophil 0.00 k/uL Normal 0.0-0.2 [facility] Comment on above: Performed By: #### R A ANASCN #### [address] [address] Superintendent [employer]: Kodi Harrington MD #### AHB27 #### [facility] [address] [place], [place] [id number] Superintendent Marine: Guillermo Meza MD #### CRP, SED, CDP, BMP #### [facility] [address] [place] [address] Superintendent Marine: Matthew Borja MD Abs.Neutrophil (Seg) 5.20 k/uL Normal 2.5-7.0 [facility] Comment on above: Performed By: #### R A, ANASCN #### [address] [address] Superintendent Marine: Kodi Harrington MD #### AHB27 #### [facility] [address] [place], [place] [id number] Superintendent Marine: Guillermo Meza MD #### CRP, SED, CDP, BMP #### [facility] [address] [place] [address] Superintendent Marine: Matthew Borja MD Auto Diff Performed YES Normal [facility] Comment on above: Performed By: #### R A ANASCN #### [address] [address] Superintendent Marine: Kodi Harrington MD #### AHB27 #### [facility] [address] [place], [place] [id number] Superintendent Marine: Guillermo Meza MD #### CRP, SED, CDP, BMP #### [facility] [address] [place] [address] Superintendent Marine: Matthew Borja MD Basophils/100 WBC (Bld) 0 % Normal 0-2 [facility] Comment on above: Performed By: #### R A ANASCN #### [address] [address] Superintendent Marine: Kodi Harrington MD #### AHB27 #### [facility] [address] [place], [place] [id number] Superintendent Marine: Guillermo Meza MD #### CRP, SED, CDP, BMP #### [facility] [address] [place] [address] Superintendent Marine: Matthew Borja MD Eosinophils (Bld) [#/Vol] 0.30 10*3/uL Normal 0.0-0.4 [facility] Comment on above: Performed By: #### R A ANASCN #### [address] [address] Superintendent Marine: Kodi Harrington MD #### AHB27 #### [facility] [address] [place], [place] [id number] Superintendent Marine: Guillermo Meza MD #### CRP, SED, CDP, BMP #### [facility] [address] [place] [address] Superintendent Marine: Matthew Borja MD Eosinophils/100 WBC (Bld) 3 % Normal 0-5 [facility] Comment on above: Performed By: #### R A ANASCN #### [address] [address] Superintendent Marine: Kodi Harrington MD #### AHB27 #### [facility] [address] [place] [address] Superintendent [employer]: Guillermo Meza MD #### CRP, SED, CDP, BMP #### [facility] [address] [place] [address] Superintendent Marine: Matthew Borja MD Erythrocyte distribution width (RBC) [Ratio] 14.1 % Normal 12.1-15.2 [facility] Comment on above: Performed By: #### R AHÉCTORN #### [facility] [address] [place] [address] Superintendent [employer]: Kodi Harrington MD #### AHB27 #### [facility] [address] [place] [address] Superintendent [employer]: Guillermo Meza MD #### CRP, SED, CDP, BMP #### [facility] [address] [place] [address] Superintendent Marine: Matthew Borja MD Hematocrit (Bld) [Volume fraction] 43.6 % Normal 36-46 [facility] Comment on above: Performed By: #### R AMAURICIOSCN #### [address] [address] Superintendent [employer]: Kodi Harrington MD #### AHB27 #### [facility] [address] [place], [place] [id number] Superintendent Marine: Guillermo Meza MD #### CRP, SED, CDP, BMP #### [facility] [address] [place] [address] Superintendent Marine: Matthew Borja MD Hemoglobin (Bld) [Mass/Vol] 14.7 g/dL Normal 12.0-16.0 [facility] Comment on above: Performed By: #### R A ANASCN #### [address] [address] Superintendent Marine: Kodi Harrington MD #### AHB27 #### [facility] [address] [place], [place] [id number] Superintendent Marine: Guillermo Meza MD #### CRP, SED, CDP, BMP #### [facility] [address] [place], [place] [phone] Superintendent Marine: Matthew Borja MD Lymphocytes (Bld) [#/Vol] 2.00 10*3/uL Normal 1.0-4.8 [facility] Comment on above: Performed By: #### NADIA Colon #### [address] [address] Superintendent Marine: Kodi Harrington MD #### AHB27 #### [facility] [address] [place], [place] [id number] Superintendent Marine: Guillermo Meza MD #### CRP, SED, CDP, BMP #### [facility] [address] [place] [address] Superintendent Marine: Matthew Borja MD Lymphocytes/100 WBC (Bld) 25 % Normal 15-40 [facility] Comment on above: Performed By: #### NADIA Colon #### [address] [address] Superintendent Marine: Kodi Harrington MD #### AHB27 #### [facility] [address] [place], [place] [id number] Superintendent Marine: Guillermo Meza MD #### CRP, SED, CDP, BMP #### [facility] [address] [place], [place] [phone] Superintendent Marine: Matthew Borja MD MCH (RBC) [Entitic mass] 30.3 pg Normal 26-34 [facility] Comment on above: Performed By: #### R HÉCTOR GaliciaN #### [address] [place] [address] Superintendent Marine: Kodi Harrington MD #### AHB27 #### [facility] [address] [place], [place] [id number] Superintendent Marine: Guillermo Meza MD #### CRP, SED, CDP, BMP #### [facility] [address] [place] [address] Superintendent Marine: Matthew Borja MD MCHC (RBC) [Mass/Vol] 33.8 g/dL Normal 31-37 [facility] Comment on above: Performed By: #### NADIA Colon #### [address] [address] Superintendent Marine: Kodi Harrington MD #### AHB27 #### [facility] [address] [place], [place] [id number] Superintendent Marine: Guillermo Meza MD #### CRP, SED, CDP, BMP #### [facility] [address] [place] [address] Superintendent Marine: Matthew Borja MD MCV (RBC) [Entitic vol] 89.6 fL Normal 80-100 [facility] Comment on above: Performed By: #### HÉCTOR ColonN #### [address] [address] Superintendent Marine: Kodi Harrington MD #### AHB27 #### [facility] [address] [place], [place] [id number] Superintendent Marine: Guillermo Meza MD #### CRP, SED, CDP, BMP #### [facility] [address] [place], [place] [phone] Superintendent Marine: Matthew Borja MD Monocytes (Bld) [#/Vol] 0.50 10*3/uL Normal 0.0-1.0 [facility] Comment on above: Performed By: #### R A, ANASCN #### [address] [address] Superintendent Marine: Kodi Harrington MD #### AHB27 #### [facility] [address] [place] [address] Superintendent [employer]: Guillermo Meza MD #### CRP, SED, CDP, BMP #### [facility] [address] [place] [address] Superintendent Marine: Matthew Borja MD Monocytes/100 WBC (Bld) 6 % Normal 4-8 [facility] Comment on above: Performed By: #### R A, ANASCN #### [address] [address] Superintendent Marine: Kodi Harrington MD #### AHB27 #### [facility] [address] [place], [place] [id number] Superintendent Marine: Guillermo Meza MD #### CRP, SED, CDP, BMP #### [facility] [address] [place], [place] [id number] Superintendent Marine: Matthew Borja MD Neutrophil (Seg) 66 % Normal 47-75 [facility] Comment on above: Performed By: #### R A, ANASCN #### [address] [address] Superintendent Marine: Kodi Harrington MD #### AHB27 #### [facility] [address] [place], [place] [id number] Superintendent Marine: Guillermo Meza MD #### CRP, SED, CDP, BMP #### [facility] [address] [place], [place] 1051290 Superintendent Marine: Matthew Borja MD Platelets (Bld) [#/Vol] 318 10*3/uL Normal 140-450 [facility] Comment on above: Performed By: #### R A ANASCN #### [facility] [address] [place] [address] Superintendent Marine: Kodi Harrington MD #### AHB27 #### [facility] [address] [place] [address] Superintendent Marine: Guillermo Meza MD #### CRP, SED, CDP, BMP #### [facility] [address] [place], [place] [id number] Superintendent Marine: Matthew Borja MD RBC (Bld) [#/Vol] 4.86 10*6/uL Normal 4.0-5.2 [facility] Comment on above: Performed By: #### Gill Galicia ANASCN #### [address] [address] Superintendent Marine: Kodi Harrington MD #### AHB27 #### [facility] [address] [place] [address] Superintendent Marine: Guillermo Meza MD #### CRP, SED, CDP, BMP #### [facility] [address] [place], [place] [phone] Superintendent Marine: Matthew Borja MD WBC (Bld) [#/Vol] 8.0 10*3/uL Normal 3.5-11.0 [facility] Comment on above: Performed By: #### R A, ANASCN #### [address] [address] Superintendent Marine: Kodi Harrington MD #### AHB27 #### [facility] [address] [place] [address] Superintendent Marine: Guillermo Meza MD #### CRP, SED, CDP, BMP #### [facility] [address] [place], [place] 8198790 Superintendent Marine: Matthew Borja MD Abs.Imm.Granulocyte NOT REPORTED Normal 0.00-0.30 [facility] Comment on above: Performed By: #### NADIA Colon #### [address] [address] Superintendent Marine: Kodi Harrington MD #### AHB27 #### [facility] [address] [place], [place] [id number] Superintendent Marine: Guillermo Meza MD #### CRP, SED, CDP, BMP #### [facility] [address] [place], [place] 7841590 Superintendent Marine: Matthew Borja MD Immature Granulocyte NOT REPORTED Normal 0 [facility] Comment on above: Performed By: #### NADIA Colon #### [address] [address] Superintendent Marine: Kodi Harrington MD #### AHB27 #### [facility] [address] [place], [place] [id number] Superintendent Marine: Guillermo Meza MD #### CRP, SED, CDP, BMP #### [facility] [address] [place], [place] 1147890 Superintendent Marine: Matthew Borja MD MPV NOT REPORTED Normal 6.0-12.0 [facility] Comment on above: Performed By: #### NADIA Colon #### [address] [address] Superintendent Marine: Kodi Harrington MD #### AHB27 #### [facility] [address] [place], [place] [id number] Superintendent Marine: Guillermo Meza MD #### CRP, SED, CDP, BMP #### [facility] [address] [place], [place] 2871690 Superintendent Marine: Matthew Borja MD NRBC Automated NOT REPORTED Normal [facility] Comment on above: Performed By: #### R AMAURICIOSCN #### [facility] [address] [place] [address] Superintendent Marine: Kodi Harrington MD #### AHB27 #### [facility] [address] [place] [address] Superintendent Marine: Guillermo Meza MD #### CRP, SED, CDP, BMP #### [facility] [address] [place], [place] [id number] Superintendent Marine: Matthew Borja MD Platelet Comment NOT REPORTED Normal [facility] Comment on above: Performed By: #### R AMAURICIOSCN #### [address] [address] Superintendent Marine: Kodi Harrington MD #### AHB27 #### [facility] [address] [place], [place] [id number] Superintendent Marine: Guillermo Meza MD #### CRP, SED, CDP, BMP #### [facility] [address] [place] [address] Superintendent Marine: Matthew Borja MD RBC morphology finding Nom (Bld) NOT REPORTED Normal [facility] Comment on above: Performed By: #### HÉCTOR ColonN #### [address] [address] Superintendent Marine: Kodi Harrington MD #### AHB27 #### [facility] [address] [place], [place] [id number] Superintendent Marine: Guillermo Meza MD #### CRP, SED, CDP, BMP #### [facility] [address] [place], [place] 7093190 Superintendent Marine: Matthew Borja MD WBC Morphology NOT REPORTED Normal [facility] Comment on above: Performed By: #### R A ANASCN #### [facility] [address] [place] [address] Superintendent Marine: Kodi Harrington MD #### AHB27 #### [facility] [address] [place] [address] Superintendent Marine: Guillermo Meza MD #### CRP, SED, CDP, BMP #### [facility] [address] [place] [address] Superintendent Marine: Matthew Borja MD RA Screenon 07-24-2021 RA Screen <10 Normal <14 [facility] Comment on above: Performed By: #### HÉCTOR ColonN #### [address] [address] Superintendent [employer]: Kodi Harrington MD #### AHB27 #### [facility] [address] [place] [address] Superintendent [employer]: Guillermo Meza MD #### CRP, SED, CDP, BMP #### [facility] [address] [place] [address] Superintendent Marine: Matthew Borja MD Sedimentation Rateon 022 Sedimentation Rate 14 mm Normal 0-30 [facility] Comment on above: Performed By: #### MAURICIO ColonSCN #### [address] [address] Superintendent [employer]: Kodi Harrington MD #### AHB27 #### [facility] [address] [place] [address] Superintendent [employer]: Guillermo Meza MD #### CRP, SED, CDP, BMP #### [facility] [address] [place] [address] Superintendent [employer]: Matthew Borja MD MRI KNEE LEFT WO CONTRASTon 05-06-2021 MRI KNEE LEFT WO CONTRAST HISTORY: Pain along the lateral aspect of the left knee for the past month. No known injury. MRI KNEE LEFT WO CONTRAST: 05/06/2021 8:56 AM EST COMPARISON: Radiographs right knee 03/27/2021. TECHNIQUE: Coronal and sagittal proton-density fat-saturated images, sagittal T1, T2, and axial STIR images of the knee were obtained without contrast. FINDINGS: JOINT SPACES: There is a moderate-sized joint effusion with a probable mild underlying synovitis. There appears to be at least moderate thinning and irregularity of the cartilage of the weightbearing portion of the medial femoral condyle and mild thinning of the medial aspect of the medial tibial plateau cartilage. There appear to be mild degenerative changes of the lateral compartment. There is evidence of a full-thickness chondral flap involving the central patellar cartilage measuring 5 x 7 mm in transverse and craniocaudal dimension. There also appears to be patchy grade 2 chondromalacia involving the medial patellar facet cartilage. There is patchy grade 2-3 chondromalacia of the femoral trochlear cartilage. LIGAMENTS AND TENDONS: There is medial bowing of the medial collateral ligament at the joint line, but the ligament appears of normal size and signal intensity. The lateral collateral ligament, posterior cruciate ligament, iliotibial band, patellar tendon, and visualized distal quadriceps tendon appear within normal limits. The anterior cruciate ligament appears within normal limits. MENISCI: There is mild blunting and increased signal intensity involving the free edge of the posterior horn medial meniscus. No lateral meniscal tear is seen. BONES: The bone marrow signal intensity is age appropriate. MUSCLES AND SOFT TISSUES: The visualized musculature appears of normal signal intensity. There is no Lacey's cyst. IMPRESSION: 1. 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 There is also mild osteoarthritis of the lateral femorotibial component. 2. There is evidence of a tear of the inner margin of the posterior horn of the medial meniscus. No lateral meniscal tear is seen. 3. Moderate-sized joint effusion with a probable mild underlying synovitis. 4. No ligament injury is seen. Interpreted by: Geo Hughes MD Signed by: Geo Hughes MD 05/06/21 Final result [facility] 1. 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 There is also mild osteoarthritis of the lateral femorotibial component. 2. There is evidence of a tear of the inner margin of the posterior horn of the medial meniscus. No lateral meniscal tear is seen. 3. Moderate-sized joint effusion with a probable mild underlying synovitis. 4. No ligament injury is seen. [facility] HISTORY: Pain along the lateral aspect of the left knee for the past month. No known injury. MRI KNEE LEFT WO CONTRAST: 05/06/2021 8:56 AM EST COMPARISON: Radiographs right knee 03/27/2021. TECHNIQUE: Coronal and sagittal proton-density fat-saturated images, sagittal T1, T2, and axial STIR images of the knee were obtained without contrast. FINDINGS: JOINT SPACES: There is a moderate-sized joint effusion with a probable mild underlying synovitis. There appears to be at least moderate thinning and irregularity of the cartilage of the weightbearing portion of the medial femoral condyle and mild thinning of the medial aspect of the medial tibial plateau cartilage. There appear to be mild degenerative changes of the lateral compartment. There is evidence of a full-thickness chondral flap involving the central patellar cartilage measuring 5 x 7 mm in transverse and craniocaudal dimension. There also appears to be patchy grade 2 chondromalacia involving the medial patellar facet cartilage. There is patchy grade 2-3 chondromalacia of the femoral trochlear cartilage. LIGAMENTS AND TENDONS: There is medial bowing of the medial collateral ligament at the joint line, but the ligament appears of normal size and signal intensity. The lateral collateral ligament, posterior cruciate ligament, iliotibial band, patellar tendon, and visualized distal quadriceps tendon appear within normal limits. The anterior cruciate ligament appears within normal limits. MENISCI: There is mild blunting and increased signal intensity involving the free edge of the posterior horn medial meniscus. No lateral meniscal tear is seen. BONES: The bone marrow signal intensity is age appropriate. MUSCLES AND SOFT TISSUES: The visualized musculature appears of normal signal intensity. There is no Lacey's cyst. [facility] Fraser, Geo Olivares MD - 05/06/2021 HISTORY: Pain along the lateral aspect of the left knee for the past month. No known injury. MRI KNEE LEFT WO CONTRAST: 05/06/2021 8:56 AM EST COMPARISON: Radiographs right knee 03/27/2021. TECHNIQUE: Coronal and sagittal proton-density fat-saturated images, sagittal T1, T2, and axial STIR images of the knee were obtained without contrast. FINDINGS: JOINT SPACES: There is a moderate-sized joint effusion with a probable mild underlying synovitis. There appears to be at least moderate thinning and irregularity of the cartilage of the weightbearing portion of the medial femoral condyle and mild thinning of the medial aspect of the medial tibial plateau cartilage. There appear to be mild degenerative changes of the lateral compartment. There is evidence of a full-thickness chondral flap involving the central patellar cartilage measuring 5 x 7 mm in transverse and craniocaudal dimension. There also appears to be patchy grade 2 chondromalacia involving the medial patellar facet cartilage. There is patchy grade 2-3 chondromalacia of the femoral trochlear cartilage. LIGAMENTS AND TENDONS: There is medial bowing of the medial collateral ligament at the joint line, but the ligament appears of normal size and signal intensity. The lateral collateral ligament, posterior cruciate ligament, iliotibial band, patellar tendon, and visualized distal quadriceps tendon appear within normal limits. The anterior cruciate ligament appears within normal limits. MENISCI: There is mild blunting and increased signal intensity involving the free edge of the posterior horn medial meniscus. No lateral meniscal tear is seen. BONES: The bone marrow signal intensity is age appropriate. MUSCLES AND SOFT TISSUES: The visualized musculature appears of normal signal intensity. There is no Lacey's cyst. IMPRESSION: 1. 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 There is also mild osteoarthritis of the lateral femorotibial component. 2. There is evidence of a tear of the inner margin of the posterior horn of the medial meniscus. No lateral meniscal tear is seen. 3. Moderate-sized joint effusion with a probable mild underlying synovitis. 4. No ligament injury is seen. [facility] Phone: Radiology Study observation (narrative) [facility] Phone: MRI KNEE LEFT WO CONTRASTOrd ered By: Geo Hughes on 05-06-2021 [facility] Phone: COVID-19, RapidOrdered By: Yamilet Hogue on 04-03-2021 SARS-CoV-2 (COVID-19) RNA ANANT+probe Ql (Unsp spec) Not detected Not Detected [facility] Phone: Comment on above: Rapid NAAT: The specimen is NEGATIVE for SARS-CoV-2, the novel coronavirus associated with COVID-19. The ID NOW COVID-19 assay is designed to detect the virus that causes COVID-19 in patients with signs and symptoms of infection who are suspected of COVID-19. An individual without symptoms of COVID-19 and who is not shedding SARS-CoV-2 virus would expect to have a negative (not detected) result in this assay. Negative results should be treated as presumptive and, if inconsistent with clinical signs and symptoms or necessary for patient management, should be tested with an alternative molecular assay. Negative results do not preclude SARS-CoV-2 infection and should not be used as the sole basis for patient management decisions. Fact sheet for Healthcare Providers: https://www.fda.gov/media/427188/download Fact sheet for Patients: https://www.fda.gov/media/341877/download Methodology: Isothermal Nucleic Acid Amplification Specimen Description .NASOPHARYNGEAL SWAB [facility] Phone: [facility] Phone: [id number] 04-03-2021 SARS-CoV-2 (COVID-19) RNA ANANT+probe Ql (Unsp spec) Not detected Normal [facility] Comment on above: Result Comment: Rapid NAAT: The specimen is NEGATIVE for SARS-CoV-2, the novel coronavirus associated with COVID-19. The ID NOW COVID-19 assay is designed to detect the virus that causes COVID-19 in patients with signs and symptoms of infection who are suspected of COVID-19. An individual without symptoms of COVID-19 and who is not shedding SARS-CoV-2 virus would expect to have a negative (not detected) result in this assay. Negative results should be treated as presumptive and, if inconsistent with clinical signs and symptoms or necessary for patient management, should be tested with an alternative molecular assay. Negative results do not preclude SARS-CoV-2 infection and should not be used as the sole basis for patient management decisions. Fact sheet for Healthcare Providers: https://www.fda.gov/media/104893/download Fact sheet for Patients: https://www.fda.gov/media/190351/download Methodology: Isothermal Nucleic Acid Amplification Performed By: #### C OVRB ####[facility] [id number] [place] [address] lab Director: Matthew Borja MD XR KNEE LEFT (MIN 4 VIEWS)on 03-27-2021 XR KNEE LEFT (MIN 4 VIEWS) EXAM: XR KNEE LEFT (MIN 4 VIEWS) HISTORY: M25.562 51-year-old female left knee pain. COMPARISON: None. TECHNIQUE: Left knee series. Standing AP and PA tunnel views both knees, oblique, lateral, and sunrise left knee. FINDINGS: Left knee: Mild degenerative changes bilaterally, left slightly greater than right. Possible small suprapatellar left joint effusion. No chondrocalcinosis. IMPRESSION: 1. Possible small left suprapatellar joint effusion. 2. Early degenerative changes, left greater than right. Interpreted by: Fish Wright Jr., MD Signed by: Fish Wright Jr., MD 03/27/21 Final result [facility] MRI KNEE RIGHT WO CONTRASTon 02-20-2021 MRI KNEE RIGHT WO CONTRAST EXAM: MRI KNEE RIGHT WO CONTRAST COMPARISON: Right knee x-rays from 02/06/2021. HISTORY: The patient felt a pop in the right knee a couple weeks ago while getting dressed. Pain and swelling since that time. TECHNIQUE: Multiplanar and multisequence imaging of the right knee was performed without contrast. FINDINGS: The anterior cruciate ligament, posterior cruciate ligament, and collateral ligaments are intact. The patellar tendon demonstrates intermediate T2 signal proximally consistent with mild tendinopathy. The distal quadriceps tendon is intact. There is an obliquely oriented radial tear involving the posterior horn of the medial meniscus towards the meniscal root well seen on coronal fat-saturated proton density image 17. There is low to moderate grade articular cartilage loss in the medial compartment more pronounced along the medial femoral condyle centrally. No lateral meniscal tear is evident. The articular cartilage in the lateral compartment is intact. There is a small joint effusion. Low to moderate grade articular cartilage loss is present in the patellofemoral compartment with an area of linear high-grade chondral fissuring along the patellar apex. There is a small ruptured Lacey cyst with edema in the adjacent fascial planes. No acute bony abnormality is identified. IMPRESSION: 1. An obliquely oriented radial tear involves the posterior horn of the medial meniscus towards the meniscal root. There is low to moderate grade articular cartilage loss in the medial compartment. 2. No MRI evidence of lateral meniscal tear or acute ligament tear. 3. There is a small joint effusion with low to moderate grade articular cartilage loss in the patellofemoral compartment. An area of linear high-grade chondral fissuring involves the patellar apex. 4. Small ruptured Lacey cyst. Interpreted by: Leandro Hernandez MD Signed by: Leandro Hernandez MD 02/20/21 Final result [facility] MRI KNEE RIGHT WO CONTRASTOr dered By: Cleopatra Payan on 02-20-2021 1. An obliquely oriented radial tear involves the posterior horn of the medial meniscus towards the meniscal root. There is low to moderate grade articular cartilage loss in the medial compartment. 2. No MRI evidence of lateral meniscal tear or acute ligament tear. 3. There is a small joint effusion with low to moderate grade articular cartilage loss in the patellofemoral compartment. An area of linear high-grade chondral fissuring involves the patellar apex. 4. Small ruptured Lacey cyst. [facility] Work Phone: EXAM: MRI KNEE RIGHT WO CONTRAST COMPARISON: Right knee x-rays from 02/06/2021. HISTORY: The patient felt a pop in the right knee a couple weeks ago while getting dressed. Pain and swelling since that time. TECHNIQUE: Multiplanar and multisequence imaging of the right knee was performed without contrast. FINDINGS: The anterior cruciate ligament, posterior cruciate ligament, and collateral ligaments are intact. The patellar tendon demonstrates intermediate T2 signal proximally consistent with mild tendinopathy. The distal quadriceps tendon is intact. There is an obliquely oriented radial tear involving the posterior horn of the medial meniscus towards the meniscal root well seen on coronal fat-saturated proton density image 17. There is low to moderate grade articular cartilage loss in the medial compartment more pronounced along the medial femoral condyle centrally. No lateral meniscal tear is evident. The articular cartilage in the lateral compartment is intact. There is a small joint effusion. Low to moderate grade articular cartilage loss is present in the patellofemoral compartment with an area of linear high-grade chondral fissuring along the patellar apex. There is a small ruptured Lacey cyst with edema in the adjacent fascial planes. No acute bony abnormality is identified. [facility] Work Phone: Luis, pn Incoming Radiant Results From [employer] - 02/20/2021 11:28 AM EDT EXAM: MRI KNEE RIGHT WO CONTRAST COMPARISON: Right knee x-rays from 02/06/2021. HISTORY: The patient felt a pop in the right knee a couple weeks ago while getting dressed. Pain and swelling since that time. TECHNIQUE: Multiplanar and multisequence imaging of the right knee was performed without contrast. FINDINGS: The anterior cruciate ligament, posterior cruciate ligament, and collateral ligaments are intact. The patellar tendon demonstrates intermediate T2 signal proximally consistent with mild tendinopathy. The distal quadriceps tendon is intact. There is an obliquely oriented radial tear involving the posterior horn of the medial meniscus towards the meniscal root well seen on coronal fat-saturated proton density image 17. There is low to moderate grade articular cartilage loss in the medial compartment more pronounced along the medial femoral condyle centrally. No lateral meniscal tear is evident. The articular cartilage in the lateral compartment is intact. There is a small joint effusion. Low to moderate grade articular cartilage loss is present in the patellofemoral compartment with an area of linear high-grade chondral fissuring along the patellar apex. There is a small ruptured Lacey cyst with edema in the adjacent fascial planes. No acute bony abnormality is identified. IMPRESSION: 1. An obliquely oriented radial tear involves the posterior horn of the medial meniscus towards the meniscal root. There is low to moderate grade articular cartilage loss in the medial compartment. 2. No MRI evidence of lateral meniscal tear or acute ligament tear. 3. There is a small joint effusion with low to moderate grade articular cartilage loss in the patellofemoral compartment. An area of linear high-grade chondral fissuring involves the patellar apex. 4. Small ruptured Lacey cyst. [facility] Phone: [facility] Phone: [id number] 02-17-2021 SARS-CoV-2 (COVID-19) RNA ANANT+probe Ql (Unsp spec) [facility] Comment on above: Performed By: #### C OVID ####[facility] [place], [place] [id number] Lab Director: Kodi HarringtonUC [facility] [address] [place] [address] lab Director: Matthew Borja MD SARS-CoV-2 (COVID-19) RNA ANANT+probe Ql (Unsp spec) Not detected [facility] Comment on above: Result Comment: The specimen is NEGATIVE for SARS-CoV-2, the novel coronavirus associated with COVID-19. A negative result does not rule out COVID-19. María SARS-CoV-2 for use on the María [employer]/8800 Systems is a real-time RT-PCR test intended for the qualitative detection of nucleic acids from SARS-CoV-2 in clinician-collected nasal, nasopharyngeal, and oropharyngeal swab specimens from individuals who meet COVID-19 clinical and/or epidemiological criteria. María SARS-CoV-2 is for use only under Emergency Use Authorization (EUA) in laboratories certified under Clinical Laboratory Improvement Amendments of 1988 (CLIA), 42 U.S.C. ?263a, that meet requirements to perform high or moderate complexity tests. An individual without symptoms of COVID-19 and who is not shedding SARS-CoV-2 virus would expect to have a negative (not detected) result in this assay. Fact sheet for Healthcare Providers: https://www.fda.gov/media/110479/download Fact sheet for Patients: https://www.fda.gov/media/132929/download METHODOLOGY: RT-PCR Performed By: #### C OVID ####[facility] [place], [place] [id number] Lab Director: Kodi HarringtonUC [facility] [id number] [place] [address] lab Director: Matthew Borja MD [id number] 02-16-2021 SARS-CoV-2 (COVID-19) RNA ANANT+probe Ql (Unsp spec) .NASOPHARYNGEAL SWAB [facility] Comment on above: Performed By: #### C OVID ####[address] [place] [address] Lab Director: Kodi [facility]ola[facility] [id number] [place], [place] [id number] Lab Director: Matthew Borja MD [id number] 02-10-2021 SARS-CoV-2 (COVID-19) RNA ANANT+probe Ql (Unsp spec) Not detected Normal [facility] Comment on above: Result Comment: The specimen is NEGATIVE for SARS-CoV-2, the novel coronavirus associated with COVID-19. A negative result does not rule out COVID-19. This test has been authorized by the FDA under an Emergency Use Authorization (EUA) for use by authorized laboratories. [employer] C[employer] SARS-CoV-2 Reagents for [employer] are designed to detect the virus that causes COVID-19 in patients with signs and symptoms of infection who are suspected of COVID-19. An individual without symptoms of COVID-19 and who is not shedding SARS-CoV-2 virus would expect to have a negative (not detected) result in this assay. Fact sheet for Healthcare Providers: https://www.fda.gov/media/475426/download Fact sheet for Patients: https://www.fda.gov/media/194696/download METHODOLOGY: RT-PCR Performed By: #### C OVID ####[address] [place] [address] Lab Director: Kodi HarringtonUC [facility] [address] [place], [place] [id number] Lab Director: Matthew Borja MD SARS-CoV-2 (COVID-19) RNA ANANT+probe Ql (Unsp spec) [facility] Comment on above: Performed By: #### C OVID ####[facility] [address] [place] [address] Lab Director: Kodi HarringtonUC [facility] [id number] [place] [address] lab Director: Matthew Borja MD [id number] 02-09-2021 SARS-CoV-2 (COVID-19) RNA NAANT+probe Ql (Unsp spec) .NASOPHARYNGEAL SWAB [facility] Comment on above: Performed By: #### C OVID ####[facility] [address] [place] [address] lab Director: Kodi Harrington, [facility] [id number] [place] [address] lab Director: Matthew Borja MD XR KNEE RIGHT (MIN 4 VIEWS)o n 02-06-2021 XR KNEE RIGHT (MIN 4 VIEWS) EXAM: XR KNEE RIGHT (MIN 4 VIEWS). HISTORY: M25.561, 50-year-old male, acute pain right knee. COMPARISON: None. TECHNIQUE: Right knee series with AP standing and PA tunnel views of both knees, lateral and sunrise right knee. FINDINGS: Mild degenerative changes bilaterally, left slightly greater than right in the medial and lateral joint compartments. No chondrocalcinosis. Minimal degenerative change right knee for age. No joint effusion. IMPRESSION: Early degenerative changes mainly opposite left knee. Interpreted by: Fish Wright Jr., MD Signed by: Fish Wright Jr., MD 02/06/21 Final result [facility] XR KNEE RIGHT (MIN 4 VIEWS)O rdered By: Cleopatra Payan on 02-06-2021 Early degenerative changes mainly opposite left knee. [facility] Work Phone: EXAM: XR KNEE RIGHT (MIN 4 VIEWS). HISTORY: M25.561, 50-year-old male, acute pain right knee. COMPARISON: None. TECHNIQUE: Right knee series with AP standing and PA tunnel views of both knees, lateral and sunrise right knee. FINDINGS: Mild degenerative changes bilaterally, left slightly greater than right in the medial and lateral joint compartments. No chondrocalcinosis. Minimal degenerative change right knee for age. No joint effusion. [facility] Phone: Luis, Mhpn Incoming Radiant Results From [employer] - 02/06/2021 11:00 AM EDT EXAM: XR KNEE RIGHT (MIN 4 VIEWS). HISTORY: M25.561, 50-year-old male, acute pain right knee. COMPARISON: None. TECHNIQUE: Right knee series with AP standing and PA tunnel views of both knees, lateral and sunrise right knee. FINDINGS: Mild degenerative changes bilaterally, left slightly greater than right in the medial and lateral joint compartments. No chondrocalcinosis. Minimal degenerative change right knee for age. No joint effusion. IMPRESSION: Early degenerative changes mainly opposite left knee. [facility] Phone: [facility] Phone: Basic Metabolic PanelOrdered By: Cleopatra Payan on 01-21-2021 Anion gap [Moles/Vol] 13 mmol/L 9 - 17 mmol/L [facility] Phone: Calcium [Mass/Vol] 9.6 mg/dL 8.6 - 10.4 mg/dL [facility] Phone: Chloride [Moles/Vol] 102 mmol/L 98 - 107 mmol/L [facility] Phone: CO2 [Moles/Vol] 25 mmol/L 20 - 31 mmol/L [facility] Phone: Creatinine [Mass/Vol] 0.83 mg/dL 0.50 - 0.90 mg /dL [facility] Phone: GFR >60 >60 mL/min [facility] Phone: GFR Non- >60 >60 mL/min [facility] Phone: Glucose [Mass/Vol] 93 mg/dL 70 - 99 mg/dL [facility] [employer] Phone: Interpretation and review of laboratory results Abnormal [facility] Phone: Potassium [Moles/Vol] 4.9 mmol/L 3.7 - 5.3 mmol /L [facility] Phone: Sodium [Moles/Vol] 140 mmol/L 135 - 144 mmol/L [facility] Phone: Urea nitrogen (BldV) [Mass/Vol] 19 mg/dL 6 - 20 mg/dL [facility] Phone: Urea nitrogen/Creatinine (Bld) [Mass ratio] 23 High [facility] Work Phone: [facility] Phone: Basic Metabolic Profon 01-21 (cont.) Normal [facility] Comment on above: Result Comment: Aver age GFR for 50-59 years old: 93 mL/min/1.73sq m Chronic Kidney Disease: <60 mL/min/1.73sq m Kidney failure: <15 mL/min/1.73sq m eGFR calculated using average adult body mass. Additional eGFR calculator available at: http://www.[employer]/multiple_crcl_2011.htm Performed By: #### C DP, BMP #### [facility] [address] [place] [address] [place] [address] Superintendent Marine: Matthew Borja MD Anion gap [Moles/Vol] 13 mmol/L Normal 9-17 [facility] Comment on above: Performed By: #### C DP, BMP #### [facility] [address] [place] [address] Superintendent Marine: Matthew Borja MD BUN/CRE Ratio 23 High 9-20 [facility] Comment on above: Performed By: #### C DP, BMP #### [facility] [address] [place] [address] Superintendent Marine: Matthew Borja MD Calcium [Mass/Vol] 9.6 mg/dL Normal 8.6-10.4 [facility] Comment on above: Performed By: #### C DP, BMP #### [facility] [address] [place] [address] Superintendent Marine: Matthew Borja MD Chloride [Moles/Vol] 102 mmol/L Normal 98-107 [facility] Comment on above: Performed By: #### C DP, BMP #### [facility] [address] [place], [place] [id number] Superintendent [employer]: Matthew Borja MD CO2 [Moles/Vol] 25 mmol/L Normal 20-31 [facility] Comment on above: Performed By: #### C DP, BMP #### [facility] [address] [place] [address] Superintendent Marine: Matthew Borja MD Creatinine [Mass/Vol] 0.83 mg/dL Normal 0.50-0.90 [facility] Comment on above: Performed By: #### C DP, BMP #### [facility] [address] [place], [place] [id number] Superintendent Marine: Matthew Borja MD GFR, Amer >60 Normal >60 [facility] Comment on above: Performed By: #### C DP, BMP #### [facility] [address] [place], [place] [id number] Superintendent Marine: Matthew Borja MD GFR,non Amer >60 Normal >60 [facility] Comment on above: Performed By: #### C DP, BMP #### [facility] [address] [place], [place] [id number] Superintendent Marine: Matthew Borja MD Glucose [Mass/Vol] 93 mg/dL Normal 70-99 [facility] Comment on above: Performed By: #### C DP, BMP #### [facility] [address] [place], [place] [id number] Superintendent Marine: Matthew Borja MD Potassium [Moles/Vol] 4.9 mmol/L Normal 3.7-5.3 [facility] Comment on above: Performed By: #### C DP, BMP #### [facility] [address] [place] [address] [place] [place], [place] [id number] Superintendent Marine: Matthew Borja MD Sodium [Moles/Vol] 140 mmol/L Normal 135-144 [facility] Comment on above: Performed By: #### C DP, BMP #### [facility] [address] [place] [address] [place] [address] Superintendent Marine: Matthew Borja MD Staging: Normal [facility] Comment on above: Result Comment: Stag e 1: Some kidney damage normal GFR Stage 2: Mild kidney damage GFR 60-89 Stage 3: Moderate kidney damage GFR 30-59 Stage 4: Severe kidney damage GFR 15-29 Stage 5: Severe kidney damage GFR <15 ESRD - chronic treatment by dialysis or transplant Performed By: #### C DP, BMP #### [facility] [address] [place] [address] [address] [place], [place] [phone] Superintendent Marine: Matthew Borja MD Urea nitrogen [Mass/Vol] 19 mg/dL Normal 6-20 [facility] Comment on above: Performed By: #### C DP, BMP #### [facility] [address] [place] [address] [place] [address] Superintendent Marine: Matthew Borja MD CBC Auto DifferentialOrdered By: Cleopatra Payan on 01-21-2021 Absolute Eos # 0.39 [facility] Work Phone: Absolute Immature Granulocyte <0.03 [facility] Work Phone: Absolute Lymph # 2.[address] [facility] Work Phone: Absolute Banks # 0.[address] [facility] Work Phone: Basophils (Bld) [#/Vol] 10*3/uL [facility] Work Phone: Basophils/100 WBC (Bld) 0 % 0 - 2 % [facility] Work Phone: Differential Type NOT REPORTED [facility] Work Phone: Eosinophils/100 WBC (Bld) 5 % High 1 - 4 % [facility] Phone: Hematocrit (Bld) [Volume fraction] 44.2 % 36.3 - 47.1 % [facility] Phone: Hemoglobin.gastrointes tinal spec 1 Ql (Stl) 14.2 g/dL 11.9 - 15.1 g/dL [facility] Work Phone: Immature granulocytes/100 WBC (Bld) 0 % 0 [facility] Work Phone: Interpretation and review of laboratory results Abnormal [facility] Phone: Lymphocytes/100 WBC (Bld) 34 % 24 - 43 % [facility] Phone: MCH (RBC) [Entitic mass] 29.8 pg 25.2 - 33.5 pg [facility] Phone: MCHC (RBC) [Mass/Vol] 32.1 g/dL 28.4 - 34.8 g/ dL [facility] Phone: MCV (RBC) [Entitic vol] 92.7 fL 82.6 - 102.9 fL [facility] Phone: Monocytes/100 WBC (Bld) 7 % 3 - 12 % [facility] Phone: NRBC Automated 0.0 0.0 per 100 WBC [facility] Phone: Platelet distribution width (Bld) [Ratio] 12.5 % 11.8 - 14.4 % [facility] Phone: Platelet Estimate NOT REPORTED [facility] Phone: Platelet mean volume (Bld) [Entitic vol] 10.2 fL 8.1 - 13.5 fL [facility] Phone: Platelets (Bld) [#/Vol] 267 10*3/uL [facility] Phone: RBC (Bld) [#/Vol] 4.77 10*6/uL 3.95 - 5.11 m/uL [facility] Work Phone: RBC (Bld) [#/Vol] NOT REPORTED [facility] Work Phone: Segmented neutrophils/100 WBC (Bld) 54 % 36 - 65 % [facility] Work Phone: Segs Absolute 4.08 [facility] Work Phone: WBC (Bld) [#/Vol] 7.7 10*3/uL [facility] Work Phone: WBC (Bld) [#/Vol] NOT REPORTED [facility] Work Phone: [facility] Work Phone: CBC with Diffon 01-21-2021 Abs. Basophil <0.03 Normal 0.00-0.20 [facility] Comment on above: Performed By: #### C DP, BMP #### [facility] [address] [place] [address] [place] [address] Superintendent Marine: Matthew Borja MD Abs.Imm.Granulocyte <0.03 Normal 0.00-0.30 [facility] Comment on above: Performed By: #### C DP, BMP #### [facility] [address] [place] [address] [place] [address] Superintendent Marine: Matthew Borja MD Abs.Neutrophil (Seg) 4.08 k/uL Normal 1.50-8.10 [facility] Comment on above: Performed By: #### C DP, BMP #### [facility] [address] [place] [address] Superintendent Marine: Matthew Borja MD Basophils/100 WBC (Bld) 0 % Normal 0-2 [facility] Comment on above: Performed By: #### C DP, BMP #### [facility] [address] [place] [address] Superintendent Marine: Matthew Borja MD Eosinophils (Bld) [#/Vol] 0.39 10*3/uL Normal 0.00-0.44 [facility] Comment on above: Performed By: #### C DP, BMP #### [address] [place], [place] [id number] Superintendent Marine: Matthew Borja MD Eosinophils/100 WBC (Bld) 5 % High 1-4 [facility] Comment on above: Performed By: #### C DP, BMP #### [address] [place] [address] Superintendent Marine: Matthew Borja MD Erythrocyte distribution width (RBC) [Ratio] 12.5 % Normal 11.8-14.4 [facility] Comment on above: Performed By: #### C DP, BMP #### [address] [place], [place] [address] Superintendent Marine: Matthew Borja MD Hematocrit (Bld) [Volume fraction] 44.2 % Normal 36.3-47.1 [facility] Comment on above: Performed By: #### C DP, BMP #### [address] [place], [facility]83 Superintendent Marine: Matthew Borja MD Hemoglobin (Bld) [Mass/Vol] 14.2 g/dL Normal 11.9-15.1 [facility] Comment on above: Performed By: #### C DP, BMP #### [address] [place], [place] [id number] Superintendent Marine: Matthew Borja MD Immature granulocytes/100 WBC (Bld) 0 % Normal 0 [facility] Comment on above: Performed By: #### C DP, BMP #### [address] [place], [place] 0635683 Superintendent Marine: Matthew Borja MD Lymphocytes (Bld) [#/Vol] 2.64 10*3/uL Normal 1.10-3.70 [facility] Comment on above: Performed By: #### C DP, BMP #### [address] [place], [place] [address] Superintendent Marine: Matthew Borja MD Lymphocytes/100 WBC (Bld) 34 % Normal 24-43 [facility] Comment on above: Performed By: #### C DP, BMP #### [address] [place], [place] [address] Superintendent Marine: Matthew Borja MD MCH (RBC) [Entitic mass] 29.8 pg Normal 25.2-33.5 [facility] Comment on above: Performed By: #### C DP, BMP #### [address] [place], [place] [address] Superintendent Marine: Matthew Borja MD MCHC (RBC) [Mass/Vol] 32.1 g/dL Normal 28.4-34.8 [facility] Comment on above: Performed By: #### C DP, BMP #### [address] [place], [place] [address] Superintendent Marine: Matthew Borja MD MCV (RBC) [Entitic vol] 92.7 fL Normal 82.6-102.9 [facility] Comment on above: Performed By: #### C DP, BMP #### [address] [place], [place] [address] Superintendent Marine: Matthew Borja MD Monocytes (Bld) [#/Vol] 0.56 10*3/uL Normal 0.10-1.20 [facility] Comment on above: Performed By: #### C DP, BMP #### [address] [place], [facility]83 Superintendent Marine: Matthew Borja MD Monocytes/100 WBC (Bld) 7 % Normal 3-12 [facility] Comment on above: Performed By: #### C DP, BMP #### [facility] [address] [place], [place] 6674783 Superintendent Marine: Matthew Borja MD Neutrophil (Seg) 54 % Normal 36-65 [facility] Comment on above: Performed By: #### C DP, BMP #### [facility] [address] [place], [place] [phone] Superintendent Marine: Matthew Borja MD NRBC Automated 0.0 per 100 WBC Normal 0.0 [facility] Comment on above: Performed By: #### C DP, BMP #### [facility] [address] [place], [place] 8644583 Superintendent Marine: Matthew Borja MD Platelet mean volume (Bld) [Entitic vol] 10.2 fL Normal 8.1-13.5 [facility] Comment on above: Performed By: #### C DP, BMP #### [address] [place], [place] [id number] Superintendent Marine: Matthew Borja MD Platelets (Bld) [#/Vol] 267 10*3/uL Normal 138-453 [facility] Comment on above: Performed By: #### C DP, BMP #### [address] [place], [place] 4509083 Superintendent Marine: Matthew Borja MD RBC (Bld) [#/Vol] 4.77 10*6/uL Normal 3.95-5.11 [facility] Comment on above: Performed By: #### C DP, BMP #### [address] [place], [place] 6677383 Superintendent Marine: Matthew Borja MD WBC (Bld) [#/Vol] 7.7 10*3/uL Normal 3.5-11.3 [facility] Comment on above: Performed By: #### C DP, BMP #### [address] [place], [place] 6278883 Superintendent Marine: Matthew Borja MD Auto Diff Performed NOT REPORTED Normal [facility] Comment on above: Performed By: #### C DP, BMP #### [facility] [address] [place], [place] [phone] Superintendent Marine: Matthew Borja MD Platelet Estimate NOT REPORTED Normal [facility] Comment on above: Performed By: #### C DP, BMP #### [facility] [address] [place], [place] [phone] Superintendent Marine: Matthew Borja MD RBC morphology finding Nom (Bld) NOT REPORTED Normal [facility] Comment on above: Performed By: #### C DP, BMP #### [facility] [address] [place], [place] [phone] Superintendent Marine: Matthew Borja MD WBC Morphology NOT REPORTED Normal [facility] Comment on above: Performed By: #### C DP, BMP #### [facility] [address] [place], [place] 7568483 Superintendent Marine: Matthew Borja MD Laboratory - Chemistry and C hemistry - challengeOrdered By: Cleopatra Payan on 01-21-2021 GFR/1.73 sq M.predicted MDRD (S/P/Bld) [Vol rate/Area] [facility] Work Phone: Comment on above: Average GFR for 50-5 9 years old: 93 mL/min/1.73sq m Chronic Kidney Disease: <60 mL/min/1.73sq m Kidney failure: <15 mL/min/1.73sq m eGFR calculated using average adult body mass. Additional eGFR calculator available at: http://www.[employer].Alerts/multiple_crcl_2012.htm Stage 1: Some kidney damage normal GFR Stage 2: Mild kidney damage GFR 60-89 Stage 3: Moderate kidney damage GFR 30-59 Stage 4: Severe kidney damage GFR 15-29 Stage 5: Severe kidney damage GFR <15 ESRD - chronic treatment by dialysis or transplant COVID-19Ordered By: Ronak leahy on 12-09-2020 SARS-CoV-2 (COVID-19) RNA ANANT+probe Ql (Unsp spec) Not detected Not Detected [facility] Phone: Comment on above: The specimen is NEGATIVE for SARS-CoV-2, the novel coronavirus associated with COVID-19. A negative result does not rule out COVID-19. This test has been authorized by the FDA under an Emergency Use Authorization (EUA) for use by authorized laboratories. [employer] Coding SARS-CoV-2 Reagents for [employer] are designed to detect the virus that causes COVID-19 in patients with signs and symptoms of infection who are suspected of COVID-19. An individual without symptoms of COVID-19 and who is not shedding SARS-CoV-2 virus would expect to have a negative (not detected) result in this assay. Fact sheet for Healthcare Providers: https://www.fda.gov/media/589387/download Fact sheet for Patients: https://www.fda.gov/media/086560/download METHODOLOGY: RT-PCR SARS-CoV-2 (COVID-19) RNA ANANT+probe Ql (Unsp spec) [facility] Phone: Source .THROAT [facility] Phone: [facility] Phone: [id number] 12-09-2020 SARS-CoV-2 (COVID-19) RNA ANANT+probe Ql (Unsp spec) Not detected Normal [facility] Comment on above: Result Comment: The specimen is NEGATIVE for SARS-CoV-2, the novel coronavirus associated with COVID-19. A negative result does not rule out COVID-19. This test has been authorized by the FDA under an Emergency Use Authorization (EUA) for use by authorized laboratories. [employer] Coding SARS-CoV-2 Reagents for [employer] System are designed to detect the virus that causes COVID-19 in patients with signs and symptoms of infection who are suspected of COVID-19. An individual without symptoms of COVID-19 and who is not shedding SARS-CoV-2 virus would expect to have a negative (not detected) result in this assay. Fact sheet for Healthcare Providers: https://www.fda.gov/media/466739/download Fact sheet for Patients: https://www.fda.gov/media/391616/download METHODOLOGY: RT-PCR Performed By: #### C OVID ####[facility] [place] [address] Lab Director: [facility] [id number] [place], [place] [id number] lab Director: Matthew Borja MD SARS-CoV-2 (COVID-19) RNA ANANT+probe Ql (Unsp spec) [facility] Comment on above: Performed By: #### C OVID ####[place] [address] [place] [address] Lab Director: [facility] [id number] [place] [address] lab Director: Matthew Borja MD SARS-CoV-2 (COVID-19) RNA ANANT+probe Ql (Unsp spec) .THROAT Normal [facility] Comment on above: Performed By: #### C OVID ####[address] [place] [address] Lab Director: [facility] [id number] [place], [place] [id number] lab Director: Matthew Borja MD Basic Metabolic PanelOrdered By: Josephine Márquez on 12-05-2020 Anion gap [Moles/Vol] 9 mmol/L 9 - 17 mmol/L [facility] Phone: Calcium [Mass/Vol] 9.8 mg/dL 8.6 - 10.4 mg/dL [facility] Phone: Chloride [Moles/Vol] 100 mmol/L 98 - 107 mmol/L [facility] Phone: CO2 [Moles/Vol] 27 mmol/L 20 - 31 mmol/L [facility] Phone: Creatinine [Mass/Vol] 0.87 mg/dL 0.50 - 0.90 mg /dL [facility] Phone: GFR >60 >60 mL/min [employer] Phone: GFR Non- >60 >60 mL/min [facility] Phone: Glucose [Mass/Vol] 117 mg/dL High 70 - 99 mg/dL [facility] [employer] Phone: Interpretation and review of laboratory results Abnormal [facility] Phone: Potassium [Moles/Vol] 4.2 mmol/L 3.7 - 5.3 mmol /L [facility] Phone: Sodium [Moles/Vol] 136 mmol/L 135 - 144 mmol/L [facility] Phone: Urea nitrogen (BldV) [Mass/Vol] 18 mg/dL 6 - 20 mg/dL [facility] Phone: Urea nitrogen/Creatinine (Bld) [Mass ratio] 21 High [facility] Phone: [facility] Phone: Basic Metabolic Profon 12-05 (cont.) Normal [facility] Comment on above: Result Comment: Aver age GFR for 50-59 years old: 93 mL/min/1.73sq m Chronic Kidney Disease: <60 mL/min/1.73sq m Kidney failure: <15 mL/min/1.73sq m eGFR calculated using average adult body mass. Additional eGFR calculator available at: http://www.[employer].Alerts/multiple_crcl_2012.htm Performed By: #### B MP, CDP #### [facility] [address] [place] [address] Superintendent Marine: Matthew Borja MD Anion gap [Moles/Vol] 9 mmol/L Normal 9-17 [facility] Comment on above: Performed By: #### B MP, CDP #### [facility] [address] [place], [place] [id number] Superintendent Marine: Mattehw Borja MD BUN/CRE Ratio 21 High 9-20 [facility] Comment on above: Performed By: #### B MP, CDP #### [facility] [address] [place], [place] [id number] Superintendent Marine: Matthew Borja MD Calcium [Mass/Vol] 9.8 mg/dL Normal 8.6-10.4 [facility] Comment on above: Performed By: #### B MP, CDP #### [facility] [address] [place], [place] [phone] Superintendent Marine: Matthew Borja MD Chloride [Moles/Vol] 100 mmol/L Normal 98-107 [facility] Comment on above: Performed By: #### B MP, CDP #### [facility] [address] [place], [place] [phone] Superintendent Marine: Matthew Borja MD CO2 [Moles/Vol] 27 mmol/L Normal 20-31 [facility] Comment on above: Performed By: #### B MP, CDP #### [facility] [address] [place], [place] 9045083 Superintendent Marine: Matthew Borja MD Creatinine [Mass/Vol] 0.87 mg/dL Normal 0.50-0.90 [facility] Comment on above: Performed By: #### B MP, CDP #### [facility] [address] [place], [place] [phone] Superintendent Marine: Matthew Borja MD GFR, Amer >60 Normal >60 [facility] Comment on above: Performed By: #### B MP, CDP #### [facility] [address] [place], [place] [phone] Superintendent Marine: Matthew Borja MD GFR,non Amer >60 Normal >60 [facility] Comment on above: Performed By: #### B MP, CDP #### [facility] [address] [place], [place] [id number] Superintendent Marine: Matthew Borja MD Glucose [Mass/Vol] 117 mg/dL High 70-99 [facility] Comment on above: Performed By: #### B MP, CDP #### [facility] [address] [place], [place] [phone] Superintendent Marine: Matthew Borja MD Potassium [Moles/Vol] 4.2 mmol/L Normal 3.7-5.3 [facility] Comment on above: Performed By: #### B MP, CDP #### [facility] [address] [place] [address] [place], [place] [id number] Superintendent Marine: Matthew Borja MD Sodium [Moles/Vol] 136 mmol/L Normal 135-144 [facility] Comment on above: Performed By: #### B MP, CDP #### [facility] [address] [place], [place] [phone] Superintendent Marine: Matthew Borja MD Staging: Normal [facility] Comment on above: Result Comment: Stag e 1: Some kidney damage normal GFR Stage 2: Mild kidney damage GFR 60-89 Stage 3: Moderate kidney damage GFR 30-59 Stage 4: Severe kidney damage GFR 15-29 Stage 5: Severe kidney damage GFR <15 ESRD - chronic treatment by dialysis or transplant Performed By: #### B MP, CDP #### [facility] [address] [place], [place] [id number] Superintendent Marine: Matthew Borja MD Urea nitrogen [Mass/Vol] 18 mg/dL Normal 6-20 [facility] Comment on above: Performed By: #### B MP, CDP #### [facility] [address] [place], [place] [phone] Superintendent Marine: Matthew Borja MD CBC Auto DifferentialOrdered By: Josephine Márquez on 12-05-2020 [facility] # 0.38 [employer] [facility] Work Phone: Absolute Immature Granulocyte <0.03 [employer] [facility] Work Phone: Absolute Lymph # 2.64 [facility] Work Phone: [employer] Banks # 0.61 [facility] Work Phone: Basophils (Bld) [#/Vol] 10*3/uL [facility] Work Phone: Basophils/100 WBC (Bld) 0 % 0 - 2 % [facility] Work Phone: Differential Type NOT REPORTED [facility] Work Phone: Eosinophils/100 WBC (Bld) 5 % High 1 - 4 % [facility] Work Phone: Hematocrit (Bld) [Volume fraction] 42.5 % 36.3 - 47.1 % [facility] Work Phone: Hemoglobin.gastrointes tinal spec 1 Ql (Stl) 14.1 g/dL 11.9 - 15.1 g/dL [facility] Work Phone: Immature granulocytes/100 WBC (Bld) 0 % 0 [facility] Phone: Interpretation and review of laboratory results Abnormal [facility] Phone: Lymphocytes/100 WBC (Bld) 32 % 24 - 43 % [facility] Work Phone: MCH (RBC) [Entitic mass] 30.5 pg 25.2 - 33.5 pg [facility] Work Phone: MCHC (RBC) [Mass/Vol] 33.2 g/dL 28.4 - 34.8 g/ dL [facility] Phone: MCV (RBC) [Entitic vol] 92.0 fL 82.6 - 102.9 fL [facility] Work Phone: Monocytes/100 WBC (Bld) 7 % 3 - 12 % [facility] Work Phone: NRBC Automated 0.0 0.0 per 100 WBC [facility] Phone: Platelet distribution width (Bld) [Ratio] 12.5 % 11.8 - 14.4 % [facility] Phone: Platelet Estimate NOT REPORTED [facility] Phone: Platelet mean volume (Bld) [Entitic vol] 9.7 fL 8.1 - 13.5 fL [facility] Phone: Platelets (Bld) [#/Vol] 257 10*3/uL [facility] Phone: RBC (Bld) [#/Vol] 4.62 10*6/uL 3.95 - 5.11 m/uL [facility] Phone: RBC (Bld) [#/Vol] NOT REPORTED [facility] Phone: Segmented neutrophils/100 WBC (Bld) 56 % 36 - 65 % [facility] Phone: Segs Absolute 4.70 [employer] Work Phone: WBC (Bld) [#/Vol] 8.4 10*3/uL [facility] Phone: WBC (Bld) [#/Vol] NOT REPORTED [facility] Phone: [facility] Work Phone: CBC with Diffon 12-05-2020 Abs. Basophil <0.03 Normal 0.00-0.20 [facility] Comment on above: Performed By: #### B MP, CDP #### [facility] [address] [place] [address] Superintendent Marine: Matthew Borja MD Abs.Imm.Granulocyte <0.03 Normal 0.00-0.30 [facility] Comment on above: Performed By: #### B MP, CDP #### [facility] [address] [place] [address] [address], [place] [address] Superintendent Marine: Matthew Borja MD Abs.Neutrophil (Seg) 4.70 k/uL Normal 1.50-8.10 [facility] Comment on above: Performed By: #### B MP, CDP #### [address] [place], [facility]83 Superintendent Marine: Matthew Borja MD Basophils/100 WBC (Bld) 0 % Normal 0-2 [facility] Comment on above: Performed By: #### B MP, CDP #### [address] [place], [place] [address] Superintendent Marine: Matthew Borja MD Eosinophils (Bld) [#/Vol] 0.38 10*3/uL Normal 0.00-0.44 [facility] Comment on above: Performed By: #### B NOEMY, CDP #### [address] [place], [facility]83 Superintendent Marine: Matthew Borja MD Eosinophils/100 WBC (Bld) 5 % High 1-4 [facility] Comment on above: Performed By: #### B MP, CDP #### [address] [place], [place] [address] Superintendent Marine: Matthew Borja MD Erythrocyte distribution width (RBC) [Ratio] 12.5 % Normal 11.8-14.4 [facility] Comment on above: Performed By: #### B MP, CDP #### [address] [place], [facility]83 Superintendent Marine: Matthew Borja MD Hematocrit (Bld) [Volume fraction] 42.5 % Normal 36.3-47.1 [facility] Comment on above: Performed By: #### B MP, CDP #### [address] [address]. [place], [place] [id number] Superintendent Marine: Matthew Borja MD Hemoglobin (Bld) [Mass/Vol] 14.1 g/dL Normal 11.9-15.1 [facility] Comment on above: Performed By: #### B MP, CDP #### [facility] [address] [place], [place] [id number] Superintendent Marine: Matthew Borja MD Immature granulocytes/100 WBC (Bld) 0 % Normal 0 [facility] Comment on above: Performed By: #### B MP, CDP #### [facility] [address] [place], [place] [id number] Superintendent Marine: Matthew Borja MD Lymphocytes (Bld) [#/Vol] 2.64 10*3/uL Normal 1.10-3.70 [facility] Comment on above: Performed By: #### B NOEMY, CDP #### [address] [place], [place] 859[address]83 Superintendent [employer]: Matthew Borja MD Lymphocytes/100 WBC (Bld) 32 % Normal 24-43 [facility] Comment on above: Performed By: #### B MP, CDP #### [address] [place], [place] [id number] Superintendent Marine: Matthew Borja MD MCH (RBC) [Entitic mass] 30.5 pg Normal 25.2-33.5 [facility] Comment on above: Performed By: #### B MP, CDP #### [facility] [address] [place] [address] [place] [place], [place] [id number] Superintendent Marine: Matthew Borja MD MCHC (RBC) [Mass/Vol] 33.2 g/dL Normal 28.4-34.8 [facility] Comment on above: Performed By: #### B MP, CDP #### [facility] [address] [place] [address] [place] [place], [place] [id number] Superintendent Marine: Matthew Borja MD MCV (RBC) [Entitic vol] 92.0 fL Normal 82.6-102.9 [facility] Comment on above: Performed By: #### B NOEMY, CDP #### [facility] [address] [place], [place] 1008483 Superintendent Marine: Matthew Borja MD Monocytes (Bld) [#/Vol] 0.61 10*3/uL Normal 0.10-1.20 [facility] Comment on above: Performed By: #### B MP, CDP #### [facility] [address] [place] [address] Superintendent [employer]: Matthew Borja MD Monocytes/100 WBC (Bld) 7 % Normal 3-12 [facility] Comment on above: Performed By: #### B NOEMY, CDP #### [address] [place], [facility]83 Superintendent Marine: Matthew Borja MD Neutrophil (Seg) 56 % Normal 36-65 [facility] Comment on above: Performed By: #### B NOEMY, CDP #### [address] [place], [place] [id number] Superintendent Marine: Matthew Borja MD NRBC Automated 0.0 per 100 WBC Normal 0.0 [facility] Comment on above: Performed By: #### B NOEMY, CDP #### [address] [place], [facility]83 Superintendent Marine: Matthew Borja MD Platelet mean volume (Bld) [Entitic vol] 9.7 fL Normal 8.1-13.5 [facility] Comment on above: Performed By: #### B NOEMY, CDP #### [address] [place] [address] Superintendent [employer]: Matthew Borja MD Platelets (Bld) [#/Vol] 257 10*3/uL Normal 138-453 [facility] Comment on above: Performed By: #### B MP, CDP #### [facility] [address] [place] [address] [address] [place], [place] [id number] Superintendent [employer]: Matthew Borja MD RBC (Bld) [#/Vol] 4.62 10*6/uL Normal 3.95-5.11 [facility] Comment on above: Performed By: #### B MP, CDP #### [facility] [address] [place] [address] [place] [place], [place] [id number] Superintendent [employer]: Matthew Borja MD WBC (Bld) [#/Vol] 8.4 10*3/uL Normal 3.5-11.3 [facility] Comment on above: Performed By: #### B MP, CDP #### [address] [place] [address] Superintendent [employer]: Matthew Borja MD Auto Diff Performed NOT REPORTED Normal [facility] Comment on above: Performed By: #### B MP, CDP #### [address] [place], [place] [phone] Superintendent Marine: Matthew Borja MD Platelet Estimate NOT REPORTED Normal [facility] Comment on above: Performed By: #### B MP, CDP #### [address] [place] [address] Superintendent [employer]: Matthew Borja MD RBC morphology finding Nom (Bld) NOT REPORTED Normal [facility] Comment on above: Performed By: #### B MP, CDP #### [facility] [address] [place] [address] [place] [place], [place] [phone] Superintendent Marine: Matthew Borja MD WBC Morphology NOT REPORTED Normal [facility] Comment on above: Performed By: #### B MP, CDP #### [facility] [address] [place] [address] [place] [place], [place] [id number] Superintendent Marine: Matthew Borja MD Laboratory - Chemistry and C hemistry - challengeOrdered By: Josephine Márquez on 12-05-2020 GFR/1.73 sq M.predicted MDRD (S/P/Bld) [Vol rate/Area] [facility] Work Phone: Comment on above: Average GFR for 50-5 9 years old: 93 mL/min/1.73sq m Chronic Kidney Disease: <60 mL/min/1.73sq m Kidney failure: <15 mL/min/1.73sq m eGFR calculated using average adult body mass. Additional eGFR calculator available at: http://www.[employer]/multiple_crcl_2012.htm Stage 1: Some kidney damage normal GFR Stage 2: Mild kidney damage GFR 60-89 Stage 3: Moderate kidney damage GFR 30-59 Stage 4: Severe kidney damage GFR 15-29 Stage 5: Severe kidney damage GFR <15 ESRD - chronic treatment by dialysis or transplant COVID-19on 07-18-2020 SARS-CoV-2, Rapid Not Detected Not Detected [place], [place] Comment on above: Rapid NAAT: The specimen is NEGATIVE for SARS-CoV-2, the novel coronavirus associated with COVID-19. The ID NOW COVID-19 assay is designed to detect the virus that causes COVID-19 in patients with signs and symptoms of infection who are suspected of COVID-19. An individual without symptoms of COVID-19 and who is not shedding SARS-CoV-2 virus would expect to have a negative (not detected) result in this assay. Negative results should be treated as presumptive and, if inconsistent with clinical signs and symptoms or necessary for patient management, should be tested with an alternative molecular assay. Negative results do not preclude SARS-CoV-2 infection and should not be used as the sole basis for patient management decisions. Fact sheet for Healthcare Providers: https://www.fda.gov/media/680875/download Fact sheet for Patients: https://www.fda.gov/media/614131/download Methodology: Isothermal Nucleic Acid Amplification Source .THROAT [facility], [place] Otheron 07-18-2020 SARS-CoV-2 [place], [place] EKG 12 Leadon 07-14-2020 Atrial Rate 70 BPM [place] P Spring 48 degrees [place] P-R Interval 176 ms [place] Q-T Interval 394 ms [place] QRS Duration 92 ms [place] QTc Calculation (Bazett) 425 ms [place] R Spring -6 degrees [place] T [place] 38 degrees [place] Ventricular Rate 70 BPM [place], [place] Normal sinus rhythm Normal ECG When compared with ECG of 13-JAN-2000 08:30, No significant change was found Confirmed by CLEOPATRA PINEDA ([id number]) on 07/14/2020 11:52:46 PM [place], [place] Luis, Mhpn Incoming Ekg Results From [facility] - 07/14/2020 11:52 PM EST Normal sinus rhythm Normal ECG When compared with ECG of 13-JAN-2000 08:30, No significant change was found Confirmed by CLEOPATRA PINEDA ([id number]) on 07/14/2020 11:52:46 PM [place] Basic Metabolic Panelon 06-27 Anion gap [Moles/Vol] 8 mmol/L Low 9 - 17 mmol/L [place] Bun/Cre Ratio 26 High [place], [place] Calcium [Mass/Vol] 9.0 mg/dL 8.6 - 10.4 mg/dL [place] Chloride [Moles/Vol] 104 mmol/L 98 - 107 mmol/L [place] CO2 [Moles/Vol] 26 mmol/L 20 - 31 mmol/L [place] Creatinine [Mass/Vol] 0.68 mg/dL 0.5 - 0.9 mg/d L [place] GFR >60 >60 mL/min [place] GFR Non- >60 >60 mL/min [place] Glucose [Mass/Vol] 100 mg/dL High 70 - 99 mg/dL [place] Interpretation and review of laboratory results Abnormal [place] Potassium [Moles/Vol] 4.3 mmol/L 3.7 - 5.3 mmol /L [place] Sodium [Moles/Vol] 138 mmol/L 135 - 144 mmol/L [place] Urea nitrogen [Mass/Vol] 18 mg/dL 6 - 20 mg/dL [place] Basic Metabolic Profon 07-09 (cont.) Normal [facility] Comment on above: Result Comment: Aver age GFR for 50-59 years old: 93 mL/min/1.73sq m Chronic Kidney Disease: <60 mL/min/1.73sq m Kidney failure: <15 mL/min/1.73sq m eGFR calculated using average adult body mass. Additional eGFR calculator available at: http://www.[employer]/multiple_crcl_2012.htm Performed By: #### B NOEMY, CDP #### [facility] [address] [place] [address] Superintendent [employer]: Matthew Borja MD Anion gap [Moles/Vol] 8 mmol/L Low 9-17 [facility] Comment on above: Performed By: #### B NOEMY, CDP #### [facility] [address] [place], [place] [id number] Superintendent Marine: Matthew Borja MD BUN/CRE Ratio 26 High 9-20 [facility] Comment on above: Performed By: #### B NOEMY, CDP #### [facility] [address] [place] [address] [place] [place], [place] [id number] Superintendent Marine: Matthew Borja MD Calcium [Mass/Vol] 9.0 mg/dL Normal 8.6-10.4 [facility] Comment on above: Performed By: #### B NOEMY, CDP #### [facility] [address] [place], [place] [phone] Superintendent Marine: Matthew Borja MD Chloride [Moles/Vol] 104 mmol/L Normal 98-107 [facility] Comment on above: Performed By: #### B NOEMY, CDP #### [facility] [address] [place] [address] Superintendent Marine: Matthew Borja MD CO2 [Moles/Vol] 26 mmol/L Normal 20-31 [facility] Comment on above: Performed By: #### B MP, CDP #### [facility] [address] [place], [place] [phone] Superintendent Marine: Matthew Borja MD Creatinine [Mass/Vol] 0.68 mg/dL Normal 0.50-0.90 [facility] Comment on above: Performed By: #### B MP, CDP #### [facility] [address] [place], [place] [phone] Superintendent Marine: Matthew Borja MD GFR, Amer >60 Normal >60 [facility] Comment on above: Performed By: #### B MP, CDP #### [facility] [address] [place], [place] [id number] Superintendent Marine: Matthew Borja MD GFR,non Amer >60 Normal >60 [facility] Comment on above: Performed By: #### B MP, CDP #### [facility] [address] [place] [address] Superintendent Marine: Matthew Borja MD Glucose [Mass/Vol] 100 mg/dL High 70-99 [facility] Comment on above: Performed By: #### B MP, CDP #### [facility] [address] [place], [place] 8547083 Superintendent Marine: Matthew Borja MD Potassium [Moles/Vol] 4.3 mmol/L Normal 3.7-5.3 [facility] Comment on above: Performed By: #### B MP, CDP #### [facility] [address] [place], [place] [phone] Superintendent Marine: Matthew Borja MD Sodium [Moles/Vol] 138 mmol/L Normal 135-144 [facility] Comment on above: Performed By: #### B MP, CDP #### [facility] [address] [place], [place] [phone] Superintendent Marine: Matthew Borja MD Staging: Normal [facility] Comment on above: Result Comment: Stag e 1: Some kidney damage normal GFR Stage 2: Mild kidney damage GFR 60-89 Stage 3: Moderate kidney damage GFR 30-59 Stage 4: Severe kidney damage GFR 15-29 Stage 5: Severe kidney damage GFR <15 ESRD - chronic treatment by dialysis or transplant Performed By: #### B NOEMY, CDP #### [facility] [address] [place] [address] Superintendent Marine: Matthew Borja MD Urea nitrogen [Mass/Vol] 18 mg/dL Normal 6-20 [facility] Comment on above: Performed By: #### B NOEMY, CDP #### [facility] [address] [place] [address] Superintendent Marine: Matthew Borja MD CBC Auto Differentialon 06-27 Basophils (Bld) [#/Vol] 0.03 10*3/uL [place] Basophils/100 WBC (Bld) 0 % 0 - 2 % [place] Differential Type NOT REPORTED [place] Eosinophils (Bld) [#/Vol] 0.46 10*3/uL [place] Eosinophils/100 WBC (Bld) 4 % 1 - 4 % [place] Erythrocyte distribution width (RBC) [Ratio] 13.2 % 11.8 - 14.4 % [place] Hematocrit (Bld) [Volume fraction] 42.9 % 36.3 - 47.1 % [place] Hemoglobin (Bld) [Mass/Vol] 14.2 g/dL 11.9 - 15.1 g/dL [place] Immature granulocytes (Bld) [#/Vol] 1 % High 0 [place] Immature granulocytes (Bld) [#/Vol] 0.07 10*3/uL [place] Interpretation and review of laboratory results Abnormal [place] Lymphocytes (Bld) [#/Vol] 3.77 10*3/uL [place] Lymphocytes/100 WBC (Bld) 36 % 24 - 43 % [place] MCH (RBC) [Entitic mass] 31.5 pg 25.2 - 33.5 pg [place] MCHC (RBC) [Mass/Vol] 33.1 g/dL 28.4 - 34.8 g/ dL [place] MCV (RBC) [Entitic vol] 95.1 fL 82.6 - 102.9 fL [place] Monocytes (Bld) [#/Vol] 0.76 10*3/uL [place] Monocytes/100 WBC (Bld) 7 % 3 - 12 % [place] Platelet mean volume (Bld) [Entitic vol] 10.3 fL 8.1 - 13.5 fL [place] Platelets (Bld) [#/Vol] NOT REPORTED [place] Platelets (Bld) [#/Vol] 272 10*3/uL [place] RBC (Bld) [#/Vol] 4.51 10*6/uL 3.95 - 5.11 m/uL [place] RBC morphology finding Nom (Bld) NOT REPORTED [place] Segmented neutrophils/100 WBC (Bld) 52 % 36 - 65 % [place] Segs Absolute 5.36 [place] WBC (Bld) [#/Vol] 10.5 10*3/uL [place] WBC (Bld) [#/Vol] 0.0 10*3/uL 0.0 per 100 WBC [place] WBC Morphology NOT REPORTED [place] CBC with Diffon 07-09-2020 Abs. Basophil 0.03 k/uL Normal 0.00-0.20 [facility] Comment on above: Performed By: #### B YOUNG SALGUERO #### [facility] [address] [place] [address] Superintendent Marine: Matthew Borja MD Abs.Imm.Granulocyte 0.07 k/uL Normal 0.00-0.30 [facility] Comment on above: Performed By: #### B MP, CDP #### [facility] [address] [place], [place] [id number] Superintendent Marine: Matthew Borja MD Abs.Neutrophil (Seg) 5.36 k/uL Normal 1.50-8.10 [facility] Comment on above: Performed By: #### B MP, CDP #### [address] [place], [place] [phone] Superintendent Marine: Matthew Borja MD Basophils/100 WBC (Bld) 0 % Normal 0-2 [facility] Comment on above: Performed By: #### B MP, CDP #### [address] [place], [facility]83 Superintendent Marine: Matthew Borja MD Eosinophils (Bld) [#/Vol] 0.46 10*3/uL High 0.00-0.44 [facility] Comment on above: Performed By: #### B MP, CDP #### [address] [place], [facility]83 Superintendent Marine: Matthew Borja MD Eosinophils/100 WBC (Bld) 4 % Normal 1-4 [facility] Comment on above: Performed By: #### B MP, CDP #### [address] [place], [facility]83 Superintendent Marine: Matthew Borja MD Erythrocyte distribution width (RBC) [Ratio] 13.2 % Normal 11.8-14.4 [facility] Comment on above: Performed By: #### B MP, CDP #### [address] [place], [facility]83 Superintendent Marine: Matthew Borja MD Hematocrit (Bld) [Volume fraction] 42.9 % Normal 36.3-47.1 [facility] Comment on above: Performed By: #### B MP, CDP #### [address] [place], [facility]83 Superintendent Marine: Matthew Borja MD Hemoglobin (Bld) [Mass/Vol] 14.2 g/dL Normal 11.9-15.1 [facility] Comment on above: Performed By: #### B NOEMY, CDP #### [facility] [address] [place], [place] [phone] Superintendent Marine: Matthew Borja MD Immature granulocytes/100 WBC (Bld) 1 % High 0 [facility] Comment on above: Performed By: #### B NOEMY, CDP #### [facility] [address] [place], [place] [phone] Superintendent Marine: Matthew Borja MD Lymphocytes (Bld) [#/Vol] 3.77 10*3/uL High 1.10-3.70 [facility] Comment on above: Performed By: #### B NOEMY, CDP #### [address] [place], [place] [id number] Superintendent Marine: Matthew Borja MD Lymphocytes/100 WBC (d) 36 % Normal 24-43 [facility] Comment on above: Performed By: #### B NOEMY, CDP #### [address] [place], [place] [id number] Superintendent Marine: Matthew Borja MD MCH (RBC) [Entitic mass] 31.5 pg Normal 25.2-33.5 [facility] Comment on above: Performed By: #### B NOEMY, CDP #### [facility] [address] [place] [address] [place], [place] [id number] Superintendent Marine: Matthew Borja MD MCHC (RBC) [Mass/Vol] 33.1 g/dL Normal 28.4-34.8 [facility] Comment on above: Performed By: #### B NOEMY, CDP #### [facility] [address] [place] [address] [place] [address] Superintendent Marine: Matthew Borja MD MCV (RBC) [Entitic vol] 95.1 fL Normal 82.6-102.9 [facility] Comment on above: Performed By: #### B MP, CDP #### [facility] [address] [place] [address] Superintendent Marine: Matthew Borja MD Monocytes (Bld) [#/Vol] 0.76 10*3/uL Normal 0.10-1.20 [facility] Comment on above: Performed By: #### B MP, CDP #### [facility] [address] [place], [place] [phone] Superintendent Marine: Matthew Borja MD Monocytes/100 WBC (Bld) 7 % Normal 3-12 [facility] Comment on above: Performed By: #### B NOEMY, CDP #### [address] [place], [place] 5285783 Superintendent Marine: Matthew Borja MD Neutrophil (Seg) 52 % Normal 36-65 [facility] Comment on above: Performed By: #### B NOEMY, CDP #### [address] [place], [place] 1253783 Superintendent Marine: Matthew Borja MD NRBC Automated 0.0 per 100 WBC Normal 0.0 [facility] Comment on above: Performed By: #### B NOEMY, CDP #### [address] [place], [facility]83 Superintendent Marine: Matthew Borja MD Platelet mean volume (Bld) [Entitic vol] 10.3 fL Normal 8.1-13.5 [facility] Comment on above: Performed By: #### B MP, CDP #### [address] [place] [address] Superintendent Marine: Matthew Borja MD Platelets (Bld) [#/Vol] 272 10*3/uL Normal 138-453 [facility] Comment on above: Performed By: #### B MP, CDP #### [facility] [address] [place], [place] [id number] Superintendent Marine: Matthew Borja MD RBC (Bld) [#/Vol] 4.51 10*6/uL Normal 3.95-5.11 [facility] Comment on above: Performed By: #### B MP, CDP #### [facility] [address] [place] [address] Superintendent Marine: Matthew Borja MD WBC (Bld) [#/Vol] 10.5 10*3/uL Normal 3.5-11.3 [facility] Comment on above: Performed By: #### B MP, CDP #### [address] [place], [place] 5483083 Superintendent Marine: Matthew Borja MD Auto Diff Performed NOT REPORTED Normal [facility] Comment on above: Performed By: #### B MP, CDP #### [facility] [address] [place] [address] Superintendent Marine: Matthew Borja MD Platelet Estimate NOT REPORTED Normal [facility] Comment on above: Performed By: #### B MP, CDP #### [address] [place], [place] [id number] Superintendent Marine: Matthew Borja MD RBC morphology finding Nom (Bld) NOT REPORTED Normal [facility] Comment on above: Performed By: #### B MP, CDP #### [facility] [address] [place] [address] [place], [place] [id number] Superintendent Marine: Matthew Borja MD WBC Morphology NOT REPORTED Normal [facility] Comment on above: Performed By: #### B MP, CDP #### [facility] [address] [place] [address] Superintendent Marine: Matthew Borja MD Metabolic Panelon 07-09-2020 GFR/1.73 sq M predicted among non-blacks MDRD (S/P/Bld) [Vol rate/Area] [place] Comment on above: Stage 1: Some kidney damage normal GFR Stage 2: Mild kidney damage GFR 60-89 Stage 3: Moderate kidney damage GFR 30-59 Stage 4: Severe kidney damage GFR 15-29 Stage 5: Severe kidney damage GFR <15 ESRD - chronic treatment by dialysis or transplant Average GFR for 50-5 9 years old: 93 mL/min/1.73sq m Chronic Kidney Disease: <60 mL/min/1.73sq m Kidney failure: <15 mL/min/1.73sq m eGFR calculated using average adult body mass. Additional eGFR calculator available at: http://www.[employer]/multiple_crcl_2012.htm MRI SHOULDER LEFT WO [place] 08-24-2019 1. There is mild to moderate tendinopathy of the supraspinatus and infraspinatus tendons along with moderate tendinopathy of the subscapularis. A low-grade intrasubstance longitudinal tear of the distal subscapularis measures 6 mm in craniocaudal dimension by 1 mm in width. 2. Prior biceps tenodesis with postsurgical change as described above. 3. There is mild edema along the myotendinous junction of the supraspinatus anteriorly consistent with a Grade 1 myotendinous strain. 4. Mild to moderate degenerative change involves the acromioclavicular joint. 5. There is intrasubstance degeneration involving the superior labrum with a possible small tear of the anterosuperior labrum. [place] EXAM: MRI SHOULDER LEFT WITHOUT CONTRAST COMPARISON: Left shoulder MRI from 12/29/2016. HISTORY: Surgery for a torn rotator cuff and biceps tendon in October 2018. Pain and limited range of motion. TECHNIQUE: Multiplanar and multisequence imaging of the left shoulder was performed without contrast. FINDINGS: There is postsurgical change status post biceps tenodesis. The biceps tendon is not visualized proximally with the surgical tract identified in the proximal humerus related to the biceps tenodesis. Mild to moderate degenerative change involves the acromioclavicular joint with joint space narrowing, marginal osteophytes and capsular hypertrophy. There is a relatively flat undersurface of the acromion. A small amount of subacromial fluid is present. Intermediate signal of the supraspinatus and infraspinatus is consistent with mild to moderate tendinopathy. There is mild edema along the myotendinous junction of the supraspinatus anteriorly consistent with a Grade 1 myotendinous strain. There is intermediate signal of the subscapularis tendon consistent with moderate tendinopathy. A low-grade intrasubstance split tear involves the distal subscapularis measuring 6 mm in craniocaudal dimension by 1 mm in width. There is no atrophy of the rotator cuff muscles. The glenohumeral alignment is anatomic. There is a small glenohumeral joint effusion. There is amorphous intermediate to increased signal throughout the superior labrum consistent with intrasubstance degeneration with associated fraying. There is a possible small tear of the anterosuperior labrum. No paralabral cyst is evident. There is no acute bony abnormality. [facility] [place], [place] Luis, Mhpn Incoming Radiant Results From [employer] - 08/24/2019 11:51 AM EST EXAM: MRI SHOULDER LEFT WITHOUT CONTRAST COMPARISON: Left shoulder MRI from 12/29/2016. HISTORY: Surgery for a torn rotator cuff and biceps tendon in October 2018. Pain and limited range of motion. TECHNIQUE: Multiplanar and multisequence imaging of the left shoulder was performed without contrast. FINDINGS: There is postsurgical change status post biceps tenodesis. The biceps tendon is not visualized proximally with the surgical tract identified in the proximal humerus related to the biceps tenodesis. Mild to moderate degenerative change involves the acromioclavicular joint with joint space narrowing, marginal osteophytes and capsular hypertrophy. There is a relatively flat undersurface of the acromion. A small amount of subacromial fluid is present. Intermediate signal of the supraspinatus and infraspinatus is consistent with mild to moderate tendinopathy. There is mild edema along the myotendinous junction of the supraspinatus anteriorly consistent with a Grade 1 myotendinous strain. There is intermediate signal of the subscapularis tendon consistent with moderate tendinopathy. A low-grade intrasubstance split tear involves the distal subscapularis measuring 6 mm in craniocaudal dimension by 1 mm in width. There is no atrophy of the rotator cuff muscles. The glenohumeral alignment is anatomic. There is a small glenohumeral joint effusion. There is amorphous intermediate to increased signal throughout the superior labrum consistent with intrasubstance degeneration with associated fraying. There is a possible small tear of the anterosuperior labrum. No paralabral cyst is evident. There is no acute bony abnormality. IMPRESSION: 1. There is mild to moderate tendinopathy of the supraspinatus and infraspinatus tendons along with moderate tendinopathy of the subscapularis. A low-grade intrasubstance longitudinal tear of the distal subscapularis measures 6 mm in craniocaudal dimension by 1 mm in width. 2. Prior biceps tenodesis with postsurgical change as described above. 3. There is mild edema along the myotendinous junction of the supraspinatus anteriorly consistent with a Grade 1 myotendinous strain. 4. Mild to moderate degenerative change involves the acromioclavicular joint. 5. There is intrasubstance degeneration involving the superior labrum with a possible small tear of the anterosuperior labrum. [place], [place] BUN & Creatinineon 9 Creatinine [Mass/Vol] 0.99 mg/dL High 0.5 - 0.9 mg/d L [place] GFR >60 >60 mL/min [place], [place] GFR Non- 59 mL/min Low >60 [place] Interpretation and review of laboratory results Abnormal [place] Urea nitrogen [Mass/Vol] 19 mg/dL 6 - 20 mg/dL [place] Metabolic Panelon 03-14-2019 GFR/1.73 sq M predicted among non-blacks MDRD (S/P/Bld) [Vol rate/Area] [place] Comment on above: Average GFR for 50-5 9 years old: 93 mL/min/1.73sq m Chronic Kidney Disease: <60 mL/min/1.73sq m Kidney failure: <15 mL/min/1.73sq m eGFR calculated using average adult body mass. Additional eGFR calculator available at: http://[email or web address]/multiple_crcl_[email or web address].htm Stage 1: Some kidney damage normal GFR Stage 2: Mild kidney damage GFR 60-89 Stage 3: Moderate kidney damage GFR 30-59 Stage 4: Severe kidney damage GFR 15-29 Stage 5: Severe kidney damage GFR <15 ESRD - chronic treatment by dialysis or transplant Vital Signs Date Time Vital Sign Value Performing Clinician [facility] 06-21-2023 08:59-0500 Blood Pressure Location MELANY PATO [facility] 06-21-2023 08:59-0500 Body temperature 97.52 [degF] MELANY PATO [facility] 06-21-2023 08:59-0500 Diastolic blood pressure 88 mm[Hg] MELANY PATO [facility] 06-21-2023 08:59-0500 Heart rate 70 /min MELANY PATO [facility] 06-21-2023 08:59-0500 Respiratory rate 18 /min MELANY PATO [facility] 06-21-2023 08:59-0500 SaO2% (BldA) [Mass fraction] 98 % MELANY PATO [facility] 06-21-2023 08:59-0500 Systolic blood pressure 138 mm[Hg] MELANY PATO [facility] 05-30-2023 08:23-0500 Blood Pressure Location MELANY PATO [facility] 05-30-2023 08:23-0500 Diastolic blood pressure 80 mm[Hg] MELANY PATO [facility] 05-30-2023 08:23-0500 Heart rate 86 /min MELANY PATO [facility] 05-30-2023 08:23-0500 SaO2% (BldA) [Mass fraction] 93 % MELANY PATO [facility] 05-30-2023 08:23-0500 Systolic blood pressure 110 mm[Hg] MELANY PATO [facility] 05-02-2023 10:31-0500 Blood Pressure Location MELANY PATO [facility] 05-02-2023 10:31-0500 Body temperature 98.6 [degF] MELANY PATO [facility] 05-02-2023 10:31-0500 Diastolic blood pressure 80 mm[Hg] MELANY PATO [facility] 05-02-2023 10:31-0500 Heart rate 72 /min MELANY PATO [facility] 05-02-2023 10:31-0500 Respiratory rate 16 /min MELANY PATO [facility] 05-02-2023 10:31-0500 SaO2% (BldA) [Mass fraction] 93 % MELANY PATO [facility] 05-02-2023 10:31-0500 Systolic blood pressure 112 mm[Hg] MELANY PATO [facility] 05-02-2023 09:36-0500 Blood Pressure Location MELANY PATO [facility] 05-02-2023 09:36-0500 Diastolic blood pressure 80 mm[Hg] MELANY PATO [facility] 05-02-2023 09:36-0500 Heart rate 72 /min MELANY PATO [facility] 05-02-2023 09:36-0500 Respiratory rate 16 /min MELANY PATO [facility] 05-02-2023 09:36-0500 SaO2% (BldA) [Mass fraction] 93 % MELANY PATO [facility] 05-02-2023 09:36-0500 Systolic blood pressure 112 mm[Hg] MELANY PATO [facility] 04-18-2023 08:30-0400 Blood Pressure Location MELANY PATO [facility] 04-18-2023 08:30-0400 Diastolic blood pressure 70 mm[Hg] MELANY PATO [facility] 04-18-2023 08:30-0400 Heart rate 72 /min MELANY PATO [facility] 04-18-2023 08:30-0400 SaO2% (BldA) [Mass fraction] 93 % MELANY PATO [facility] 04-18-2023 08:30-0400 Systolic blood pressure 130 mm[Hg] MELANY PATO [facility] 03-14-2023 13:53-0400 Blood Pressure Location MELANY PATO [facility] 03-14-2023 13:53-0400 Diastolic blood pressure 66 mm[Hg] MELANY PATO [facility] 03-14-2023 13:53-0400 Heart rate 78 /min MELANY PTAO [facility] 03-14-2023 13:53-0400 SaO2% (BldA) [Mass fraction] 97 % MELANY PATO [facility] 03-14-2023 13:53-0400 Systolic blood pressure 130 mm[Hg] MELANY PATO [facility] 08-25-2022 16:22-0500 Diastolic blood pressure 77 mm[Hg] TONE REGULATOR-C Sia Klonk Work Phone: [facility] 08-25-2022 16:22-0500 Heart rate 68 /min TONE REGULATOR-C Sia Klonk Work Phone: [facility] 08-25-2022 16:22-0500 Respiratory rate 16 /min TONE REGULATOR-C Sia Klonk Work Phone: [facility] 08-25-2022 16:22-0500 SaO2% (BldA) [Mass fraction] 95 % TONE REGULATOR-C Sia Klonk Work Phone: [facility] 08-25-2022 16:22-0500 Systolic blood pressure 117 mm[Hg] TONE REGULATOR-C Sia Klonk Work Phone: [facility] 08-25-2022 14:43-0500 Body temperature 97.1 [degF] TONE REGULATOR-C Sia Brianonk Work Phone: [facility] 08-25-2022 14:43-0500 Inhaled oxygen flow rate 6 L/min TONE REGULATOR-C Sia Brianonk Work Phone: [facility] 08-25-2022 13:01-0500 Body mass index (BMI) [Ratio] 37 kg/m2 TONE REGULATOR-C Sia Klonk Work Phone: [facility] 08-25-2022 12:51-0500 Body height 160.02 cm TONE REGULATOR-C Sia Klonk Work Phone: [facility] 08-25-2022 12:51-0500 Body weight 94.8 kg TONE REGULATOR-C Sia Klonk Work Phone: [facility] 08-23-2022 13:15-0500 Body height 160.02 cm Ariel Olexa Other [employer] Other 08-23-2022 13:15-0500 Body mass index (BMI) [Ratio] 37.96 kg/m2 Ariel Olexa Other [employer] Other 08-23-2022 13:15-0500 Body weight 97.21 kg Ariel Olexa Other [employer] Other 08-12-2022 08:33-0500 Blood Pressure Location Sia Klonk [facility] 08-12-2022 08:33-0500 Body temperature 97.52 [degF] Sia Torresonk [facility] 08-12-2022 08:33-0500 Diastolic blood pressure 84 mm[Hg] Sia Klonk [facility] 08-12-2022 08:33-0500 Heart rate 79 /min Sia Torresonk [facility] 08-12-2022 08:33-0500 SaO2% (BldA) [Mass fraction] 96 % Sia Torresonk [facility] 08-12-2022 08:33-0500 Systolic blood pressure 124 mm[Hg] Sia Klonk [facility] 07-12-2022 11:15-0500 Body height 160.02 cm Ariel Olexa Other [employer] Other 07-12-2022 11:15-0500 Body mass index (BMI) [Ratio] 38.44 kg/m2 Ariel Olexa Other [employer] Other 07-12-2022 11:15-0500 Body weight 98.43 kg Raiel Olexa Other [employer] Other 07-05-2022 12:00-0500 Body height 160.02 cm Hannah Missler Other [employer] Other 07-05-2022 12:00-0500 Body mass index (BMI) [Ratio] 38.49 kg/m2 Hannah Missler Other [employer] Other 07-05-2022 12:00-0500 Body weight 98.57 kg Hannah Missler Other [employer] Other 07-05-2022 12:00-0500 Diastolic blood pressure 89 mm[Hg] Hannah Missler Other [employer] Other 07-05-2022 12:00-0500 Respiratory rate 18 /min Hannah Missler Other [employer] Other 07-05-2022 12:00-0500 SaO2% (BldA) [Mass fraction] 96 % Hannah Missler Other [employer] Other 07-05-2022 12:00-0500 Systolic blood pressure 133 mm[Hg] Hannah Missler Other [employer] Other 05-27-2022 10:15-0500 Body height 160.02 cm Ariel Olexa Other [employer] Other 05-27-2022 10:15-0500 Body mass index (BMI) [Ratio] 38.08 kg/m2 Ariel Olexa Other [employer] Other 05-27-2022 10:15-0500 Body weight 97.52 kg Ariel Olexa Other [employer] Other 04-20-2022 09:41-0400 Diastolic blood pressure 82 mm[Hg] Sia Klonk [facility] 04-20-2022 09:41-0400 Mean blood pressure 101 mm[Hg] Sia Klonk [facility] 04-20-2022 09:41-0400 Systolic blood pressure 138 mm[Hg] Sia Klonk [facility] 04-20-2022 09:18-0400 Blood Pressure Location Sia Klonk [facility] 04-20-2022 09:18-0400 Body temperature 98.78 [degF] Sia Klonk [facility] 04-20-2022 09:18-0400 Diastolic blood pressure 90 mm[Hg] Sia Klonk [facility] 04-20-2022 09:18-0400 Heart rate 72 /min Sia Klonk [facility] 04-20-2022 09:18-0400 SaO2% (BldA) [Mass fraction] 94 % Sia Klonk [facility] 04-20-2022 09:18-0400 Systolic blood pressure 144 mm[Hg] Sia Klonk [facility] 04-12-2022 11:15-0400 Body height 160.02 cm Ariel Olexa Other [employer] Other 04-12-2022 11:15-0400 Body mass index (BMI) [Ratio] 38.08 kg/m2 Ariel Mckeon Other [employer] Other 04-12-2022 11:15-0400 Body weight 97.52 kg Ariel Olexa Other [employer] Other 03-31-2022 13:00-0400 Diastolic blood pressure 81 mm[Hg] PHYSICIAN NO [facility] 03-31-2022 13:00-0400 Heart rate 85 /min PHYSICIAN NO [facility] 03-31-2022 13:00-0400 Respiratory rate 14 /min PHYSICIAN NO [facility] 03-31-2022 13:00-0400 SaO2% (BldA) [Mass fraction] 91 % PHYSICIAN NO [facility] 03-31-2022 13:00-0400 Systolic blood pressure 133 mm[Hg] PHYSICIAN NO [facility] 03-31-2022 12:15-0400 Inhaled oxygen flow rate 2 L/min PHYSICIAN NO [facility] 03-31-2022 11:34-0400 Body temperature 98.4 [degF] PHYSICIAN NO [facility] 03-31-2022 08:41-0400 Body height 163.83 cm PHYSICIAN NO [facility] 03-31-2022 08:41-0400 Body mass index (BMI) [Ratio] 36.3 kg/m2 PHYSICIAN NO [facility] 03-31-2022 08:41-0400 Body weight 97.6 kg PHYSICIAN NO [facility] 03-09-2022 11:45-0400 Body height 160.02 cm Ariel Mckeon Other [employer] [facility] [employer] Other 03-09-2022 11:45-0400 Body mass index (BMI) [Ratio] 38.08 kg/m2 Ariel Sortoxa Other [employer] Other 09-13-2022 11:45-0400 Body weight 97.52 kg Ariel Olexa Other [employer] Other 12-09-2021 13:43-0400 Blood Pressure Location Sia Klonk [facility] 12-09-2021 13:43-0400 Body temperature 96.8 [degF] Sia Klonk [facility] 12-09-2021 13:43-0400 Diastolic blood pressure 76 mm[Hg] Sia Klonk [facility] 12-09-2021 13:43-0400 Heart rate 96 /min Sia Klonk [facility] 12-09-2021 13:43-0400 SaO2% (BldA) [Mass fraction] 97 % Sia Klonk [facility] 12-09-2021 13:43-0400 Systolic blood pressure 132 mm[Hg] Sia Klonk [facility] 10-12-2021 11:02-0400 Blood Pressure Location Sia Klonk [facility] 10-12-2021 11:02-0400 Body temperature 96.8 [degF] Sia Klonk [facility] 10-12-2021 11:02-0400 Diastolic blood pressure 72 mm[Hg] Sia Klonk [facility] 10-12-2021 11:02-0400 Heart rate 90 /min Sia Thompson [facility] 10-12-2021 11:02-0400 SaO2% (BldA) [Mass fraction] 97 % Sia Thompson [facility] 10-12-2021 11:02-0400 Systolic blood pressure 124 mm[Hg] Sia Thompson [facility] 02-18-2021 15:30-0400 Diastolic blood pressure 60 mm[Hg] Cleopatra Payan MD Work Phone: [employer] Work Phone: 02-18-2021 15:30-0400 Heart rate 61 /min Cleopatra Payan MD Work Phone: [employer] Work Phone: 02-18-2021 15:30-0400 Respiratory rate 18 /min Cleopatra Payan MD Work Phone: [employer] Work Phone: 02-18-2021 15:30-0400 SaO2% (BldA) [Mass fraction] 96 % Cleopatra Payan MD Work Phone: [employer] Work Phone: 02-18-2021 15:30-0400 Systolic blood pressure 95 mm[Hg] Cleopatra Payan MD Work Phone: [employer] Work Phone: 02-18-2021 15:05-0400 Body temperature 97.3 [degF] Cleopatra Payan MD Work Phone: [employer] Work Phone: 02-18-2021 12:22-0400 Body height 162.6 cm Cleopatra Payan MD Work Phone: [facility] [facility] Work Phone: 02-18-2021 12:22-0400 Body mass index (BMI) [Ratio] 37.66 kg/m2 Cleopatra Payan MD Work Phone: [employer] [facility] Work Phone: 02-18-2021 12:22-0400 Body weight 99.52 kg Cleopatra Payan MD Work Phone: [employer] Work Phone: 02-13-2021 11:30-0400 Body height 160 cm Cleopatra Payan MD Work Phone: [employer] Work Phone: 02-13-2021 11:30-0400 Body mass index (BMI) [Ratio] 38.97 kg/m2 Cleopatra Payan MD Work Phone: [employer] Work Phone: 02-13-2021 11:30-0400 Body temperature 98.1 [degF] Cleopatra Payan MD Work Phone: [employer] Work Phone: 02-13-2021 11:30-0400 Body weight 99.79 kg Cleopatra Payan MD Work Phone: [employer] Work Phone: 02-13-2021 11:30-0400 Diastolic blood pressure 63 mm[Hg] Cleopatra Payan MD Work Phone: [employer] Work Phone: 02-13-2021 11:30-0400 Heart rate 70 /min Cleopatra Payan MD Work Phone: [employer] Work Phone: 02-13-2021 11:30-0400 Respiratory rate 18 /min Cleopatra Payan MD Work Phone: [employer] Work Phone: 02-13-2021 11:30-0400 SaO2% (BldA) [Mass fraction] 94 % Cleopatra Payan MD Work Phone: [employer] Work Phone: 02-13-2021 11:30-0400 Systolic blood pressure 105 mm[Hg] Cleopatra Payan MD Work Phone: [facility] [facility] Work Phone: 12-12-2020 15:30-0400 Diastolic blood pressure 72 mm[Hg] Cleopatra Payan MD Work Phone: [facility] [facility] Work Phone: 12-12-2020 15:30-0400 Heart rate 76 /min Cleopatra Payan MD Work Phone: [facility] [facility] Work Phone: 12-12-2020 15:30-0400 Respiratory rate 18 /min Cleopatra Payan MD Work Phone: [facility] [facility] Work Phone: 12-12-2020 15:30-0400 SaO2% (BldA) [Mass fraction] 94 % Cleopatra Payan MD Work Phone: [facility] [facility] Work Phone: 12-12-2020 15:30-0400 Systolic blood pressure 147 mm[Hg] Cleopatra Payan MD Work Phone: [facility] [facility] Work Phone: 12-12-2020 15:05-0400 Body temperature 97.81 [degF] Cleopatra Payan MD Work Phone: [facility] [facility] Work Phone: 12-12-2020 13:00-0400 Body height 160 cm Cleopatra Payan MD Work Phone: [facility] [facility] Work Phone: 12-12-2020 13:00-0400 Body mass index (BMI) [Ratio] 40.21 kg/m2 Cleopatra Payan MD Work Phone: [facility] Work Phone: 12-12-2020 13:00-0400 Body weight 102.97 kg Cleopatra Payan MD Work Phone: [facility] Work Phone: Encounters Encounter Date Encounter Type Care Provider Facility Start: 07-10-2024 End: 07-10-2024 ambulatory MELANY A PATO Facility:[facility] Start: 06-14-2024 End: 06-14-2024 ambulatory MELANY A PATO Facility: [facility] Start: 05-04-2024 ambulatory MELANY A PATO Facili ty: [facility] Start: 02-01-2024 End: 02-01-2024 ambulatory MELANY A PATO Facility:[facility] Start: 01-04-2024 End: 01-04-2024 ambulatory MELANY A PATO Facility:[facility] [place] Start: 12-13-2023 End: 12-13-2023 ambulatory MELANY A PATO Facility[facility] Start: 12-13-2023 End: 12-13-2023 Patient encounter procedure MELANY A PATO [facility] Start: 12-07-2023 End: 12-07-2023 ambulatory MELANY A PATO Facility: [facility] [place] Start: 11-24-2023 End: 11-24-2023 ambulatory KEMI R DOLCE Not Available Start: 11-09-2023 End: 11-09-2023 ambulatory MELANY A PATO Facility: [facility] Start: 10-13-2023 End: 10-13-2023 ambulatory MELANY A PATO Facility[facility] Start: 10-13-2023 End: 10-13-2023 Patient encounter procedure SELF REFERRAL [facility] Start: 10-12-2023 End: 10-12-2023 ambulatory MELANY A PATO Facility:[facility] Start: 10-04-2023 End: 10-04-2023 ambulatory MELANY A PATO Facility:[facility] Start: 09-21-2023 ambulatory MELANY A PATO Facili ty:[facility] Start: 09-14-2023 End: 09-14-2023 ambulatory MELANY A PATO Facility:[facility] Start: 08-17-2023 End: 08-17-2023 ambulatory MELANY A PATO Facility:[facility] Start: 07-28-2023 ambulatory MELANY PATO Facility :[facility] [place] Start: 07-20-2023 End: 07-20-2023 ambulatory MELANY A PATO Facility:[facility] Start: 06-21-2023 End: 06-21-2023 Patient encounter procedure MELANY A PATO [facility] Start: 05-30-2023 End: 05-30-2023 Patient encounter procedure MELANY A PATO [facility] Start: 05-02-2023 End: 05-02-2023 Patient encounter procedure MELANY A PATO [facility] Start: 05-02-2023 End: 05-02-2023 Patient encounter procedure MELANY A PATO [facility] Start: 05-02-2023 End: 05-02-2023 Well adult monitoring check done MELANY A PATO [facility] Start: 04-18-2023 End: 04-18-2023 Patient encounter procedure MELANY A PATO [facility] Start: 03-14-2023 End: 03-14-2023 Patient encounter procedure MELANYSee SCHUMACHER [facility] Start: 01-24-2023 End: 01-24-2023 ambulatory Ariel Olexa Other [employer] Other Start: 01-24-2023 Office outpatient vi sit 15 minutes Ariel Olexa [facility] Start: 12-22-2022 End: 12-22-2022 ambulatory Ariel Olexa Other [employer] Other Start: 12-22-2022 Telephone encounter Ariel Olexa [facility] Start: 12-21-2022 Office outpatient vi sit 15 minutes Ariel Olexa [facility] Start: 12-21-2022 End: 12-21-2022 ambulatory Ariel Olexa [employer] Other Start: 12-21-2022 End: 12-21-2022 Patient encounter procedure TONE REGULATOR-C Sia Thompson Work Phone: [facility] Start: 11-24-2022 End: 11-24-2022 ambulatory Ellie Ritchie Other [employer] Other Start: 11-24-2022 Telephone encounter Ellie Ritchie [facility] Start: 10-19-2022 End: 10-19-2022 Patient encounter procedure Sia Thompson [facility] Start: 10-11-2022 End: 12-17-2022 Recurring Sia Thompson [facility] Start: 10-04-2022 End: 10-04-2022 ambulatory Sury Mohr Other [employer] Other Start: 10-04-2022 Postop follow up vis it related to original px Sury Mohr [facility] Start: 09-24-2022 End: 09-24-2022 ambulatory TONE REGULATOR-C Sia Thompson Work Phone: [facility] Work Phone: Start: 09-24-2022 End: 09-24-2022 Discharged Recurring TONE REGULATOR-C Sia Thompson Work Phone: [facility] Work Phone: Start: 09-20-2022 End: 09-20-2022 ambulatory Hannah Nelson Other [employer] Other Start: 09-20-2022 Telephone encounter Hannah Nelson [facility] Start: 09-02-2022 End: 09-02-2022 ambulatory Sury Mohr Other [employer] Other Start: 09-02-2022 Postop follow up vis it related to original px Sury Mohr [facility] Start: 08-25-2022 End: 08-25-2022 ambulatory Ariel Olexa Facility:[facility] Start: 08-25-2022 End: 08-25-2022 Admission to same day surgery center TONE REGULATOR-C Sia Thompson Work Phone: [facility] [place] Start: 08-25-2022 End: 08-25-2022 ambulatory TONE REGULATOR-C Sia Thompson Work Phone: [facility] Work Phone: Start: 08-23-2022 End: 08-23-2022 ambulatory Ariel Olexa Other [employer] Other Start: 08-23-2022 Encounter for other preprocedural examination Ariel Sortoxa [facility] Start: 08-23-2022 Office outpatient vi sit 25 minutes Ariel Olexa [facility] Start: 08-23-2022 Telephone encounter Ariel Sortoxa [facility] Start: 08-12-2022 End: 08-12-2022 Patient encounter procedure Sia Thompson [facility] Start: 08-11-2022 End: 08-11-2022 ambulatory Ariel Macariojackson Facility:[facility] Start: 08-11-2022 End: 08-11-2022 ambulatory TONE REGULATOR-C Sia Thompson Work Phone: [facility] Work Phone: Start: 08-11-2022 End: 08-11-2022 Patient encounter procedure TONE REGULATOR-Bo Thompson Work Phone: [facility] Work Phone: Start: 08-09-2022 End: 08-10-2022 ambulatory Sia Thompson Facility:[facility] Start: 08-09-2022 Registered Recurring TONE REGULATOR-oB Thompson Work Phone: [facility] Work Phone: Start: 08-02-2022 End: 08-02-2022 ambulatory Hannah Nelson Other [employer] Other Start: 08-02-2022 Telephone encounter Hannah Nelson [facility] Start: 07-12-2022 End: 07-12-2022 ambulatory Ariel Sortoxa Other [employer] Other Start: 07-12-2022 Encounter for other preprocedural examination Ariel Sortoxa [facility] Start: 07-12-2022 Office outpatient vi sit 25 minutes Ariel Sortoxa [facility] Start: 07-08-2022 End: 07-08-2022 Patient encounter procedure HANNAH NELSON [facility] Start: 07-06-2022 End: 07-08-2022 ambulatory Ariel Olexa Facility:[facility] Start: 07-06-2022 End: 07-08-2022 ambulatory TONE REGULATOR-C Sia Thompson Work Phone: [facility] Work Phone: Start: 07-06-2022 End: 07-08-2022 Discharged Recurring TONE REGULATOR-C Sia Thompson Work Phone: [facility] Work Phone: Start: 07-05-2022 Registered Recurring TONE REGULATOR-C Emma Thompson Work Phone: [facility] Work Phone: Start: 07-05-2022 End: 07-05-2022 ambulatory Hannah Nelson Other [employer] Other Start: 07-05-2022 Nutrition therapy Hannah Nelson [facility] Start: 05-27-2022 End: 05-27-2022 ambulatory Ariel Olexa Other [employer] Other Start: 05-27-2022 Office outpatient vi sit 25 minutes Ariel Macarioxa [facility] Start: 05-21-2022 End: 05-21-2022 ambulatory Ariel Olexa Facility:[facility] Start: 05-21-2022 End: 05-21-2022 Patient encounter procedure TONE REGULATOR-C Sia Thompson Work Phone: [facility] [place] Work Phone: Start: 05-10-2022 Telephone encounter Ariel Sortoxa [facility] Start: 05-10-2022 End: 05-10-2022 ambulatory Ariel Olexa Facility:[facility] Start: 05-10-2022 End: 05-10-2022 ambulatory TONE REGULATOR-C Sia Thompson Work Phone: [facility] Work Phone: Start: 05-10-2022 End: 05-10-2022 Patient encounter procedure TONE REGULATOR-Bo Thompson Work Phone: [facility] Start: 04-20-2022 End: 04-20-2022 Patient encounter procedure Sia Thompson [facility] [place] Start: 04-12-2022 Postop follow up vis it related to original px Ariel Olexa [facility] Start: 04-12-2022 End: 04-12-2022 ambulatory Ariel Olexa [employer] Other Start: 04-12-2022 End: 04-12-2022 Patient encounter procedure TONE REGULATOR-Bo Thompson Work Phone: [facility] Start: 04-01-2022 End: 04-01-2022 ambulatory Ariel Olexa Other [employer] Other Start: 04-01-2022 Telephone encounter Ariel Olexa [facility] Start: 04-01-2022 Registered Recurring TONE REGULATOR-Bo Thompson Work Phone: [facility]-Physical Therapy [facility] Start: 03-31-2022 End: 03-31-2022 ambulatory Ariel Olexa Facility:[facility] Start: 03-31-2022 End: 03-31-2022 Admission to same day surgery center PHYSICIAN NO [facility] [place] Start: 03-31-2022 End: 03-31-2022 ambulatory PHYSICIAN [facility] Work Phone: Start: 03-30-2022 End: 03-30-2022 ambulatory Ariel Olexa Other [employer] Other Start: 03-30-2022 Telephone encounter Ariel Mckeon [facility] Start: 03-29-2022 End: 03-29-2022 ambulatory Ariel Mckeon Facility:[facility] Start: 03-29-2022 End: 03-29-2022 ambulatory PHYSICIAN NO [facility] Work Phone: Start: 03-29-2022 End: 03-29-2022 Patient encounter procedure PHYSICIAN NO [facility] Start: 03-22-2022 End: 03-22-2022 ambulatory Ariel Mckeon Facility:[facility] Start: 03-22-2022 End: 03-22-2022 Patient encounter procedure PHYSICIAN NO [facility] Start: 03-09-2022 End: 03-09-2022 ambulatory Ariel Mckeon Other [employer] Other Start: 03-09-2022 Encounter for other preprocedural examination Ariel Mckeon [facility] Start: 03-09-2022 Office outpatient vi sit 25 minutes Ariel Mckeon [facility] Start: 02-24-2022 End: 02-24-2022 ambulatory Ariel Mckeon Facility:[facility] Start: 02-24-2022 End: 02-24-2022 Patient encounter procedure MD Ariel Mckeon Work Phone: [facility]-MRI [address] Start: 02-05-2022 End: 02-05-2022 ambulatory PHYSICIAN NO [facility] Work Phone: Start: 02-05-2022 End: 02-05-2022 Discharged Recurring PHYSICIAN NO [facility]-Physical Therapy [facility] Start: 02-05-2022 Registered Recurring MD Ariel Mckeon Work Phone: [facility]-Physical Therapy [place] Start: 01-07-2022 End: 01-07-2022 ambulatory Ariel Mckeon Other [employer] Other Start: 01-07-2022 Office outpatient ne w 45 minutes [facility] Start: 01-07-2022 End: 01-07-2022 Patient encounter procedure MD Ariel Mckeon Work Phone: [facility] Start: 12-09-2021 End: 12-09-2021 Patient encounter procedure Sia Thmopson [facility] Start: 10-12-2021 End: 10-12-2021 Patient encounter procedure Sia Thompson [facility] Start: 09-29-2021 End: 09-30-2021 [facility] Start: 09-29-2021 End: 09-29-2021 Patient encounter procedure Sia Thompson APRN - TONE REGULATOR Work Phone: [email or web address] Start: 09-29-2021 End: 09-29-2021 Subsequent hospital visit by physician Sia Fry NP Work Phone: [facility] Comment on above: Postcoital bleeding; Women's annual routine gynecological examination Start: 08-28-2021 End: 08-31-2021 [facility] Start: 08-28-2021 End: 08-31-2021 ambulatory [facility] Start: 08-28-2021 End: 08-30-2021 Subsequent hospital visit by physician Gloria Additional Xray At [facility] Radiology Comment on above: Right shoulder pain, unspecified chronicity Start: 07-24-2021 End: 07-25-2021 ambulatory [facility] Start: 05-06-2021 End: 05-09-2021 ambulatory JOSEPHINE MÁRQUEZ [facility] Start: 05-06-2021 End: 05-08-2021 Subsequent hospital visit by physician [facility] Mri Scanner [facility] MRI Comment on above: Left knee pain, unsp ecified chronicity Start: 04-03-2021 End: 04-03-2021 ambulatory [facility] Start: 04-03-2021 End: 04-03-2021 ambulatory KIMBERLEE LENNIE [facility] Start: 04-03-2021 End: 04-03-2021 Subsequent hospital visit by physician Gloria Zander19 Pat Screening Schedule [facility] Comment on above: Arrived Start: 03-27-2021 End: 03-30-2021 [facility] Start: 03-27-2021 End: 03-29-2021 Subsequent hospital visit by physician Sia Fry NP Work Phone: [facility] Radiology Start: 02-20-2021 End: 02-23-2021 [facility] Start: 02-20-2021 End: 02-22-2021 Subsequent hospital visit by physician [facility] Mri Scanner [facility] MRI Comment on above: Acute pain of right knee Start: 02-18-2021 End: 02-18-2021 ambulatory CLEOPATRA PAYAN [facility] Start: 02-18-2021 End: 02-18-2021 Subsequent hospital visit by physician Cleopatra Payan MD Work Phone: [email or web address] Comment on above: Carpal tunnel syndro me of left wrist (Primary Dx) Start: 02-16-2021 End: 02-17-2021 ambulatory K[facility]EJulissa [facility] Start: 02-16-2021 End: 02-16-2021 Subsequent hospital visit by physician Eusebio Solitario Pat Screening Schedule [facility] PRE [facility] Comment on above: Arrived Start: 02-13-2021 End: 02-13-2021 ambulatory CLEOPATRA PAYAN [facility] Start: 02-13-2021 End: 02-13-2021 Subsequent hospital visit by physician Cleopatra Payan MD Work Phone: [facility] Start: 02-09-2021 End: 02-10-2021 ambulatory RONAK [facility] Start: 02-09-2021 End: 02-09-2021 Subsequent hospital visit by physician Eusebio Solitario Pat Screening Schedule [facility] PRE [facility] Comment on above: Arrived Start: 02-06-2021 End: 02-09-2021 ambulatory CLEOPATRA LOYDLAND [facility] Start: 02-06-2021 End: 02-09-2021 ambulatory [facility] Start: 02-06-2021 End: 02-08-2021 Subsequent hospital visit by physician Eusebio Additional Xray At [facility] Radiology Comment on above: Acute pain of right knee Start: 02-06-2021 End: 02-08-2021 Subsequent hospital visit by physician Sia Fry NP Work Phone: [facility] Radiology Start: 01-21-2021 End: 01-22-2021 [facility] Start: 01-21-2021 End: 01-21-2021 Subsequent hospital visit by physician Sia Fry NP Work Phone: [facility] Start: 12-12-2020 End: 12-12-2020 [facility] Start: 12-12-2020 End: 12-12-2020 Subsequent hospital visit by physician Cleopatra Payan MD Work Phone: [facility] Comment on above: Post-operative pain (Primary Dx) Start: 12-09-2020 End: 12-10-2020 ambulatory [facility]ON[facility] Start: 12-09-2020 End: 12-09-2020 Subsequent hospital visit by physician Eusebio Solitario Pat Screening Schedule [facility] Comment on above: Arrived Start: 12-05-2020 End: 12-06-2020 ambulatory S[facility] THOMPSON [facility] Start: 12-05-2020 End: 12-05-2020 Subsequent hospital visit by physician Sia Klonk PORTABLE GRINDING MACHINE OPERATOR - TONE REGULATOR Work Phone: [facility] Laboratory Start: 07-18-2020 End: 07-18-2020 Subsequent hospital visit by physician Eusebio Covid19 Pat Screening Schedule [facility] PRE ADMIT Comment on above: Arrived Start: 07-14-2020 End: 07-15-2020 ambulatory ROSALIO [facility] Start: 07-14-2020 End: 07-14-2020 Subsequent hospital visit by physician Talha Sanchez [facility] EKG Start: 07-09-2020 End: 07-10-2020 ambulatory ROSALIO [facility] Start: 07-09-2020 End: 07-09-2020 Subsequent hospital visit by physician Talha Sanchez [facility] Laboratory Start: 01-29-2020 End: 01-29-2020 Subsequent hospital visit by physician Wally Lala [facility] Laboratory Comment on above: Endometrial thickeni ng on ultrasound Start: 01-01-2020 End: 01-01-2020 Subsequent hospital visit by physician Wally Lala [facility] Laboratory Comment on above: Women's annual routi ne gynecological examination Start: 08-24-2019 End: 08-26-2019 Subsequent hospital visit by physician [facility] Mri Scanner [facility] MRI Comment on above: Labral tear of long head of biceps tendon, left, initial encounter Start: 03-14-2019 End: 03-14-2019 Subsequent hospital visit by physician Wally Lala [facility] Laboratory Procedures Date Procedure Procedure Detail Performing Clinician Start: 12-21-2022 X-ray of left knee TONE REGULATOR-C Sia Torresonk Work Phone: Start: 08-25-2022 Arthroscopy of knee TONE REGULATOR-C Sia Floresk Work Phone: Start: 05-21-2022 MRI of left knee TONE REGULATOR-C Sia Floresk Work Phone: Start: 05-10-2022 X-ray of both knees TONE REGULATOR-C Sia Torresonk Work Phone: Start: 04-12-2022 Plain X-ray of right shoulder TONE REGULATOR-C Sia Floresk Work Phone: Start: 03-31-2022 Procedure on shoulder joint PHYSICIAN NO FAMILY Start: 02-24-2022 MRI of right shoulder MD Ariel Mckeon Work Phone: Start: 01-07-2022 Plain X-ray of right shoulder MD Ariel Mckeon Work Phone: Start: 08-28-2021 Radex shoulder complete minimum 2 views Cleopatra Payan MD Work Phone: Start: 05-06-2021 Mri any jt lower extrem w/o contrast matrl Josephine Márquez PORTABLE GRINDING MACHINE OPERATOR - MACHINE CARTON MARKER Work Phone: Start: 04-03-2021 COVID-19, RAPID Ronak Hogue MD Work Phone: Start: 02-20-2021 Mri any jt lower extrem w/o contrast matrl Cleopatra Payan MD Work Phone: Start: 02-06-2021 Radiologic exam knee complete 4/more views Cleopatra Payan MD Work Phone: Start: 01-21-2021 Basic metabolic panel calcium total Cleopatra Payan MD Work Phone: Start: 12-09-2020 COVID-19 Ronak Hogue MD Work Phone: Start: 12-05-2020 Basic metabolic panel calcium total Josephine Márquez PORTABLE GRINDING MACHINE OPERATOR - MACHINE CARTON MARKER Work Phone: Start: 07-18-2020 COVID-Low Hogue Work Phone: Start: 07-14-2020 Ecg routine ecg w/least 12 lds w/i&r Rosalio Comer Work Phone: Start: 07-14-2020 EKG REPORT Hpf Scanning Start: 07-09-2020 Basic metabolic panel calcium total Rosalio Comer Work Phone: Start: 07-09-2020 Blood count complete auto&auto difrntl wbc Rosalio Comer Work Phone: Start: 01-01-2020 Microscopic observation [Identifier] in Cervix by Cyto stain Sia Thompson PORTABLE GRINDING MACHINE OPERATOR - TONE REGULATOR Work Phone: Start: 08-24-2019 Mri any jt upper extremity w/o contrast matrl Rosalio Comer Work Phone: Start: 03-14-2019 Assay of urea nitrogen quantitative Cleopatra Payan Work Phone: Start: 11-24-2018 Rupture of tendon of biceps (disorder) Sia Thompson Appendectomy Sia Thomspon Bilateral tubal ligation Aiden Thompson 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 MELANYSee SCHUMACHER History of repair of musculotendinous cuff of shoulder History of rotator cuff surgery Sia Thompson Rotator cuff includi ng muscles and tendons (body structure) Sia Thompson Rotator cuff includi ng muscles and tendons (body structure) Sia Thompson Tonsillectomy Sia Thompson Plan of Treatment Date Care Activity Detail Author Start: 12-09-2024 Lipid panel Lipid screen [facility] Start: 10-09-2024 ambulatory Ambulatory Facility:[facility] Start: 12-31-2022 Screening for malign ant neoplasm of cervix [facility] Start: 08-25-2022 [facility] Start: 08-25-2022 [facility] Start: 07-24-2022 Creatinine measurement Creatinine mo [facility] Start: 07-24-2022 Potassium monitoring Potassium monit [facility] Start: 03-31-2022 [facility] Start: 03-31-2022 [facility] Start: 02-25-2022 Influenza vaccination Flu vacc ine (Season Ended) [facility] Start: 01-22-2022 Screening for malign ant neoplasm of breast Breast cancer screen [facility] Start: 01-21-2022 Creatinine measurement Creatinine mo [facility] Start: 01-21-2022 Potassium monitoring Potassium monit [facility] Start: 12-05-2021 Creatinine measurement Creatinine mo [facility] Work Phone: Start: 12-05-2021 Potassium monitoring Potassium monit [facility] Work Phone: Start: 10-11-2021 Cervical cancer screen Cervical canc er screen [place], [place] Start: 10-11-2021 Screening for malign ant neoplasm of cervix Cervical cancer screen [place], [place] Start: 08-25-2021 Lipid screen Lipid screen [place], [place] Start: 07-09-2021 Creatinine measurement Creatinine mo [place], [place] Start: 07-09-2021 Potassium monitoring Potassium monit [place], [place] Start: 04-03-2021 End: 04-03-2021 Admission to same day surgery center 04/03/2021 Surgery IP Unit Cleopatra Payan MD [address] [place] [address] [phone] RIGHTKNEE ARTHROSCOPY PARTIAL MEDIAL MENSCECTOMY WITH CHONDRAL DEBRIDEMENT [facility] Comment on above: RIGHTKNEE ARTHROSCOP Y PARTIAL MEDIAL MENSCECTOMY WITH CHONDRAL DEBRIDEMENT Start: 04-03-2021 End: 04-03-2021 Anesthesia consultation 04/03/2021 Anesthesia Event IP Unit Michael Combs, PORTABLE GRINDING MACHINE OPERATOR - CORPORATE WEBMASTER [address] [facility] [address] [place] [address] [phone] [facility] Start: 04-03-2021 Subsequent hospital visit by physician 04/03/2021 Hospital Encounter IP Unit Cleopatra Payan MD [address] [place] [address] [phone] [facility] Start: 04-03-2021 End: 04-03-2021 Patient encounter procedure 04/03/2021 Appointment Pre-Admission Testing [facility] PRE [facility] Start: 02-25-2021 Influenza vaccination [facility] Start: 02-24-2021 End: 02-24-2021 Patient encounter procedure 02/24/2021 Office Visit Obstetrics and Gynecology Magaly Mack MD [address] [place] [address] [phone] [facility] Start: 02-20-2021 End: 02-20-2021 Patient encounter procedure 02/20/2021 Appointment Radiology [facility] MRI Start: 02-18-2021 End: 02-18-2021 Admission to same day surgery center 02/18/2021 Surgery IP Unit Cleopatra Payan MD [address] [place] [address] [phone] CARPAL TUNNEL RELEASE ENDOSCOPIC [facility] Comment on above: CARPAL TUNNEL RELEAS E ENDOSCOPIC Start: 02-18-2021 Subsequent hospital visit by physician 02/18/2021 Hospital Encounter IP Unit Cleopatra Payan MD [address] [place] [address] [phone] [facility] Start: 02-13-2021 End: 02-13-2021 Admission to same day surgery center 02/13/2021 Surgery IP Unit Cleopatra Payan MD [address] [place] [address] [phone] CARPAL TUNNEL RELEASE ENDOSCOPIC [facility] Comment on above: CARPAL TUNNEL RELEAS E ENDOSCOPIC Start: 02-13-2021 Subsequent hospital visit by physician 02/13/2021 Hospital Encounter IP Unit Cleopatra Payan MD [address] [place] [address] [phone] [facility] Start: 02-12-2021 End: 02-12-2021 Patient encounter procedure 02/12/2021 Office Visit Obstetrics and Gynecology Magaly Mack MD [address] [place] [address] [phone] [facility] Start: 02-09-2021 End: 02-09-2021 Patient encounter procedure 02/09/2021 Appointment Pre-Admission Testing [facility] PRE ADMIT Start: 01-22-2021 Breast cancer screen Breast cancer s [facility] [place] Start: 01-22-2021 Screening for malign ant neoplasm of breast Breast cancer screen [place], [place] Start: 01-16-2021 Diabetes screen Diabetes screen [facility] Start: 01-05-2021 End: 01-05-2021 Patient encounter procedure 01/05/2021 Office Visit Obstetrics and Gynecology Magaly Mack MD [address] [facility] [place] [address] [facility] Start: 12-31-2020 Depression Screen Depression Screen [facility] Start: 12-12-2020 End: 12-12-2020 Admission to same day surgery center 12/12/2020 Surgery IP Unit Cleopatra Payan MD [address] [place] [address] [phone] CARPAL TUNNEL RELEASE ENDOSCOPIC [facility] Comment on above: CARPAL TUNNEL RELEAS E ENDOSCOPIC Start: 12-12-2020 Subsequent hospital visit by physician 12/12/2020 Hospital Encounter IP Unit Cleopatra Payan MD [address] [place] [address] [phone] [facility] Start: 12-09-2020 Potassium monitoring Potassium monit [place]ing [place] Start: 07-18-2020 End: 07-18-2020 Appointment [facility] Comment on above: RIGHT SHOULDER ARTHR OSCOPY, BURSECTOMY POSSIBLE ROTATOR CUFF REPAIR Start: 03-14-2020 Creatinine measurement Creatinine mo nitoring [place] Start: 03-14-2020 Creatinine monitoring Creatinine mon [place]oring [place] Start: 02-26-2020 Influenza vaccination Flu vaccine (# 1) [place] Start: 01-29-2020 End: 01-29-2020 Office Visit 01/29/2020 Office Visit Obstetrics and Gynecology Magaly Mack MD [address] [place] [address] [facility] OPEN DIE INSPECTOR Start: 01-23-2020 End: 01-23-2020 Appointment 01/23/2020 Appointment Radiology [facility] Mammography Start: 11-09-2019 Creatinine monitoring Creatinine mon itoring [place] Start: 11-09-2019 Potassium monitoring Potassium monit [place]ing [place] Start: 04-26-2019 Influenza vaccination Flu vaccine (# 1) [place] Comment on above: Postponed from 02/25 (Patient Refused) Start: 02-25-2019 Influenza vaccination Flu vaccine (# 1) [place] Start: 2019 Colon cancer screen colonoscopy Colon cancer screen colonoscopy [place], [place] Start: 2019 Screening for malign ant neoplasm of colon Colon cancer screen colonoscopy [place], [place] Start: 2019 Shingles Vaccine (1 of 2) Shingles Vaccine (1 of 2) [facility] Start: 2014 Screening for malign ant neoplasm of colon [facility] Start: 1999 Screening for malign ant neoplasm of cervix HPV (without or with Pap) [facility] Start: 02-12-1988 DTaP/Tdap/Td vaccine (1 - Tdap) DTaP/Tdap/Td vaccine (1 - Tdap) [facility] Start: 1981 COVID-19 Vaccine (1) COVID-19 Vaccin e (1) [facility] Start: 1981 Depression Screen Depression Screen [facility] Start: 02-12-1980 DTaP/Tdap/Td vaccine (1 - Tdap) DTaP/Tdap/Td vaccine (1 - Tdap) [place] Start: 1974 COVID-19 Vaccine (1) COVID-19 Vaccin e (1) [facility] Start: 1969 Hepatitis C screening Hepatitis C sc reen [facility] End: 02-09-2021 COVID-19 COVID-19 Lab Routine Once for 1 Occurrences starting 02/09/2021 until 02/09/2021 [facility] Work Phone: Comment on above: Once for 1 Occurrenc es starting 02/09/2021 until 02/09/2021 COVID-19 [facility] Work Phone: End: 02-16-2021 COVID-19 COVID-19 Lab Routine Once for 1 Occurrences starting 02/16/2021 until 02/16/2021 [facility] Phone: Comment on above: Once for 1 Occurrenc es starting 02/16/2021 until 02/16/2021 End: 01-01-2020 Cytopathology procedure, preparation of smear, genital source PAP SMEAR Lab Routine Women's annual routine gynecological examination 1 Occurrences starting 01/01/2020 until 01/01/2020 [facility] Comment on above: 1 Occurrences starti ng 01/01/2020 until 01/01/2020 End: 09-29-2021 Cytopathology procedure, preparation of smear, genital source PAP SMEAR Lab Routine Women's annual routine gynecological examination 1 Occurrences starting 09/29/2021 until 09/29/2021 [facility] Phone: Comment on above: 1 Occurrences starti ng 09/29/2021 until 09/29/2021 Oxygen therapy [[facility] Data Set] [facility] Phone: Comment on above: Daily until disconti nued starting 12/12/2020 Daily until disconti nued starting 02/13/2021 Daily until disconti nued starting 02/18/2021 Phase I & II - meter ed glucose [facility] Phone: Comment on above: As Needed until disc ontinued starting 12/12/2020 As Needed until disc ontinued starting 02/13/2021 As Needed until disc ontinued starting 02/18/2021 End: 01-29-2020 Surgical Pathology Surgical Pathology Lab Routine Endometrial thickening on ultrasound 1 Occurrences starting 01/29/2020 until 01/29/2020 [employer] Comment on above: 1 Occurrences starti ng 01/29/2020 until 01/29/2020 End: 09-29-2021 Surgical Pathology Surgical Pathology Lab Routine Postcoital bleeding 1 Occurrences starting 09/29/2021 until 09/29/2021 [facility] Phone: Comment on above: 1 Occurrences starti ng 09/29/2021 until 09/29/2021 Immunizations Immunization Date Immunization Notes Care Provider Fa kenya 10-27-2020 COVID-19 Ad26.COV2.S (Carloz) PHYSICIAN NO [facility] NEGATED: Highlighted row has not occurred!06-21-2023 influenza virus vaccine, unspecified formulation MELANY PATO [facility] Comment on above: Result Comment: Helga ent refused NEGATED: Highlighted row has not occurred!05-30-2023 influenza virus vaccine, unspecified formulation MELANY PATO [facility] NEGATED: Highlighted row has not occurred!05-02-2023 influenza virus vaccine, unspecified formulation MELANY PATO [facility] NEGATED: Highlighted row has not occurred!03-14-2023 influenza virus vaccine, unspecified formulation MELANY PATO [facility] NEGATED: Highlighted row has not occurred!04-20-2022 influenza virus vaccine, unspecified formulation Sia Klonk [facility] NEGATED: Highlighted row has not occurred!11-17-2020 influenza virus vaccine, unspecified formulation Sia Klonk [facility] Payers Date Payer Category Payer Medicare [id number] 2023 Unknown [id number] 2022 Medicaid [id number] 2022 Self-pay [id number] 2020 Unknown [id number] 2020 Unknown [id number] 2017 Unknown [employer] xxxxxxxxxxx 2017-Present [phone] [address] [place] [address] xxxxxxxxxxx [id number] 2016 Unknown VIET Quintana LLANOS AMADO xxxxxxxx 2016-Present [phone] [address] [place] [address] xxxxxxxx [id number] 2016 Unknown [employer] xxxxxxxxx 2016-Present [phone] [address] [place] [address] xxxxxxxxx [id number] 2016 Unknown [id number] 1969 Unknown [id number] .173 1969 Unknown [id number] .173 1969 Unknown [id number] .173 1969 Unknown [id number] .173 1969 Unknown [id number] [id number] .173 1969 Unknown [id number] [id number] .173 1969 Unknown [id number] [id number] .173 1969 Unknown [id number] 2.16.840.1.714583.3.579.2 .173 1970 Unknown [id number] 2.16.840.1.960490.3.579.2 .1970 Unknown [id number] 2.16.840.1.620032.3.579.2 .174 1970 Unknown [id number] 2.16.840.1.521251.3.579.2 .1970 Unknown [id number] 2.16.840.1.182807.3.579.2 .1970 Unknown [id number] 2.16.840.1.599402.3.579.2 .1970 Unknown [id number] 2.16.840.1.067126.3.579.2 .1970 Unknown [id number] 2..840.1.392920.3.579.2 .1969 Unknown [id number] 2..840.1.972875.3.579.2 .1970 Unknown [id number] 2.16.840.1.719630.3.579.2 .1970 Unknown [id number] 2.16.840.1.138332.3.579.2 .1970 Unknown [id number] 2.16.840.1.878789.3.579.2 .1970 Unknown [id number] 2.16.840.1.311209.3.579.2 .174 1970 Unknown [id number] 2.16.840.1.792181.3.579.2 .1970 Unknown [id number] 2.16.840.1.795713.3.579.2 .174 1970 Unknown [id number] 2.16.840.1.584692.3.579.2 .1970 Unknown [id number] 2.16.840.1.063138.3.579.2 .174 1970 Unknown [id number] 2.16.840.1.288075.3.579.2 .1259 1970 Unknown [id number] 2.16.840.1.567818.3.579.2 1970 Unknown [id number] 2.16.840.1.955143.3.579.2 1969 Unknown [id number] 2.16.840.1.349314.3.579.2 1970 Unknown [id number] 2.16.840.1.124041.3.579.2 1970 Unknown [id number] 2.16.840.1.538515.3.579.2 1969 Unknown [id number] 2..840.1.373190.3.579.2 1970 Unknown [id number] 2.16.840.1.139513.3.579.2 1970 Unknown [id number] 2.16.840.1.397119.3.579.2 1970 Unknown [id number] 2.16.840.1.690320.3.579.2 1970 Unknown [id number] 2.16.840.1.349264.3.579.2 1969 Unknown [id number] 2.16.840.1.377224.3.579.2 1970 Unknown [id number] 2.16.840.1.225896.3.579.2 1970 Unknown [id number] 2.16.840.1.280177.3.579.2 1969 Unknown [id number] 2.16.840.1.899394.3.579.2 1970 Unknown [id number] 2.16.840.1.578883.3.579.2 .727 1970 Unknown [id number] 2.16.840.1.936874.3.579.2 .727 Medicaid [id number] 2.16.840.1.606656.19 Private Health Insurance [id number] Unknown [id number] 2.16.840.1.101802.19 Unknown [id number] 2.16.840.1.071811.3.579.2 .531 Unknown [id number] 2.16.840.1.556142.3.579.2 .531 Unknown [id number] 2.16.840.1.786867.3.579.2 .531 Unknown [id number] 2.16.840.1.705856.3.579.2 .531 Unknown [id number] 2.16.840.1.569947.3.579.2 .531 Unknown [id number] 2.16.840.1.087437.3.579.2 .531 Unknown [id number] 2.16.840.1.198388.3.579.2 .531 Unknown [id number] 2.16.840.1.671462.3.579.2 .531 Unknown [id number] 2.16.840.1.167622.3.579.2 .531 Unknown [id number] .16.840.1.641979.3.579.2 .531 Unknown [id number] 2.16.840.1.430405.3.579.2 .531 Unknown [id number] 2.16.840.1.936726.3.579.2 .531 Unknown [id number] 2.16840.1.520194.3.579.2 .531 Worker's Compensation [facility] [id number] Social History Date Type Detail Facility Start: 11-24-2018 End: 12-07-2023 Tobacco smoking status NHIS Never smoker [facility] Start: 11-24-2018 End: 09-29-2021 Alcohol intake [facility] (finding[facility] Start: 1970 Sex Assigned At Not on file [facility] Start: 05-12-2015 End: 01-29-2020 Tobacco use and exposure Never used [facility] Start: 11-24-2018 [facility] intake [facility] Start: 07-22-2020 End: 09-29-2021 Alcohol intake [facility] Work Phone: Start: 12-08-2020 Alcohol Comment SOCIAL [employer] Work Phone: Start: 1970 Sex Assigned At Female M [facility] Work Phone: Exposure to SARS-CoV -2 (event) [facility] sure [facility] Tobacco smoking status Never [facility] Medical Equipment Procedure Code Equipment Code Equipment Origin al Text Equipment Identifier Dates Arthroscopy, shoulder Tendon/ligament bone anchor, non-bioabsorbable [id number] [facility] Start: 03-31-2022 Arthroscopy, shoulder Tendon/ligament bone anchor, bioabsorbable [id number] [facility] Start: 03-31-2022 Button Endoscopi c Bicep 2.6x12mm [id number] Start: 11-24-2018 Start: 07-05-2022 Goals Date Patient Goal Desired Activity /State Functional Status Date Assessment Result Facility 06-21-2023 Functional Status N/A [facility] 05-30-2023 Functional Status N/A [facility] 05-02-2023 Functional Status N/A [facility] 04-18-2023 Functional Status N/A [facility] 03-14-2023 Functional Status N/A [facility] 08-12-2022 Functional Status N/A [facility] 04-20-2022 Functional Status N/A [facility] 12-09-2021 Functional Status N/A [facility] Clinical Notes 12-12-2020 to 06-14-2024 Note Date & Type Note Facility 06-14-2024 Note Patient Education Infectious Disease Influenza, Adult Influenza is also called the flu. It is an infection in the lungs, nose, and throat (respiratory tract). It spreads easily from person to person (is contagious). The flu causes symptoms that are like a cold, along with high fever and body aches. What are the causes? This condition is caused by the influenza virus. You can get the virus by: ??? Breathing in droplets that are in the air after a person infected with the flu coughed or sneezed. ??? Touching something that has the virus on it and then touching your mouth, nose, or eyes. What increases the risk? Certain things may make you more likely to get the flu. These include: ??? Not washing your hands often. ??? Having close contact with many people during cold and flu season. ??? Touching your mouth, eyes, or nose without first washing your hands. ??? Not getting a flu shot every year. You may have a higher risk for the flu, and serious problems, such as a lung infection (pneumonia), if you: ??? Are older than 65. ??? Are . ??? Have a weakened disease-fighting system (immune system) because of a disease or because you are taking certain medicines. ??? Have a long-term (chronic) condition, such as: ? Heart, kidney, or lung disease. ? Diabetes. ? Asthma. ??? Have a liver disorder. ??? Are very overweight (morbidly obese). ??? Have anemia. What are the signs or symptoms? Symptoms usually begin suddenly and last 4?14 days. They may include: ??? Fever and chills. ??? Headaches, body aches, or muscle aches. ??? Sore throat. ??? Cough. ??? Runny or stuffy (congested) nose. ??? Feeling discomfort in your chest. ??? Not wanting to eat as much as normal. ??? Feeling weak or tired. ??? Feeling dizzy. ??? Feeling sick to your stomach or throwing up. How is this treated? If the flu is found early, you can be treated with antiviral medicine. This can help to reduce how bad the illness is and how long it lasts. This may be given by mouth or through an IV tube. Taking care of yourself at home can help your symptoms get better. Your doctor may want you to: ??? Take httn-eoq-mwqygvo medicines. ??? Drink plenty of fluids. The flu often goes away on its own. If you have very bad symptoms or other problems, you may be treated in a hospital. Follow these instructions at home: Activity ??? Rest as needed. Get plenty of sleep. ??? Stay home from work or school as told by your doctor. ? Do not leave home until you do not have a fever for 24 hours without taking medicine. ? Leave home only to go to your doctor. Eating and drinking ??? Take an ORS (oral rehydration solution). This is a drink that is sold at pharmacies and stores. ??? Drink enough fluid to keep your pee pale yellow. ??? Drink clear fluids in small amounts as you are able. Clear fluids include: ? Water. ? Ice chips. ? Fruit juice mixed with water. ? Low-calorie sports drinks. ??? Eat bland foods that are easy to digest. Eat small amounts as you are able. These foods include: ? Bananas. ? Applesauce. ? Rice. ? Lean meats. ? Guymon. ? Crackers. ??? Do not eat or drink: ? Fluids that have a lot of sugar or caffeine. ? Alcohol. ? Spicy or fatty foods. General instructions ??? Take dfkq-tao-hrfiyda and prescription medicines only as told by your doctor. ??? Use a cool mist humidifier to add moisture to the air in your home. This can make it easier for you to breathe. ? When using a cool mist humidifier, clean it daily. Empty water and replace with clean water. ??? Cover your mouth and nose when you cough or sneeze. ??? Wash your hands with soap and water often and for at least 20 seconds. This is also important after you cough or sneeze. If you cannot use soap and water, use alcohol-based hand shactor. ??? Keep all follow-up visits. How is this prevented? Get a flu shot every year. You may get the flu shot in late summer, fall, or winter. Ask your doctor when you should get your flu shot. ??? Avoid contact with people who are sick during fall and winter. This is cold and flu season. Contact a doctor if: ??? You get new symptoms. ??? You have: ? Chest pain. ? Watery poop (diarrhea). ? A fever. ??? Your cough gets worse. ??? You start to have more mucus. ??? You feel sick to your stomach. ??? You throw up. Get help right away if you: ??? Have shortness of breath. ??? Have trouble breathing. ??? Have skin or nails that turn a bluish color. ??? Have very bad pain or stiffness in your neck. ??? Get a sudden headache. ??? Get sudden pain in your face or ear. ??? Cannot eat or drink without throwing up. These symptoms may represent a serious problem that is an emergency. Get medical help right away. Call your local emergency services (911 in the [place] ??? Do (more content not included)... [facility] 01-04-2024 Note Patient Education Physical Medicine and Rehabilitation Exercising to Lose Weight Getting regular exercise is important for everyone. It is especially important if you are overweight. Being overweight increases your risk of heart disease, stroke, diabetes, high blood pressure, and several types of cancer. Exercising, and reducing the calories you consume, can help you lose weight and improve fitness and health. Exercise can be moderate or vigorous intensity. To lose weight, most people need to do a certain amount of moderate or vigorous-intensity exercise each week. How can exercise affect me? You lose weight when you exercise enough to burn more calories than you eat. Exercise also reduces body fat and builds muscle. The more muscle you have, the more calories you burn. Exercise also: ? Improves mood. ? Reduces stress and tension. ? Improves your overall fitness, flexibility, and endurance. ? Increases bone strength. Moderate-intensity exercise Moderate-intensity exercise is any activity that gets you moving enough to burn at least three times more energy (calories) than if you were sitting. Examples of moderate exercise include: ? Walking a mile in 15 minutes. ? Doing light yard work. ? Biking at an easy pace. Most people should get at least 150 minutes of moderate-intensity exercise a week to maintain their body weight. Vigorous-intensity exercise Vigorous-intensity exercise is any activity that gets you moving enough to burn at least six times more calories than if you were sitting. When you exercise at this intensity, you should be working hard enough that you are not able to carry on a conversation. Examples of vigorous exercise include: ? Running. ? Playing a team sport, such as football, basketball, and soccer. ? Jumping rope. Most people should get at least 75 minutes a week of vigorous exercise to maintain their body weight. What actions can I take to lose weight? The amount of exercise you need to lose weight depends on: ? Your age. ? The type of exercise. ? Any health conditions you have. ? Your overall physical ability. Talk to your health care provider about how much exercise you need and what types of activities are safe for you. Nutrition ? Make changes to your diet as told by your health care provider or diet and livestock nutrition territory manager (dietitian). This may include: ? Eating fewer calories. ? Eating more protein. ? Eating less unhealthy fats. ? Eating a diet that includes fresh fruits and vegetables, whole grains, low-fat dairy products, and lean protein. ? Avoiding foods with added fat, salt, and sugar. ? Drink plenty of water while you exercise to prevent dehydration or heat stroke. Activity ? Choose an activity that you enjoy and set realistic goals. Your health care provider can help you make an exercise plan that works for you. ? Exercise at a moderate or vigorous intensity most days of the week. ? The intensity of exercise may vary from person to person. You can tell how intense a workout is for you by paying attention to your breathing and heartbeat. Most people will notice their breathing and heartbeat get faster with more intense exercise. ? Do resistance training twice each week, such as: ? Push-ups. ? Sit-ups. ? Lifting weights. ? Using resistance bands. ? Getting short amounts of exercise can be just as helpful as long, structured periods of exercise. If you have trouble finding time to exercise, try doing these things as part of your daily routine: ? Get up, stretch, and walk around every 30 minutes throughout the day. ? Go for a walk during your lunch break. ? Park your car farther away from your destination. ? If you take public transportation, get off one stop early and walk the rest of the way. ? Make phone calls while standing up and walking around. ? Take the stairs instead of elevators or escalators. ? Wear comfortable clothes and shoes with good support. ? Do not exercise so much that you hurt yourself, feel dizzy, or get very short of breath. Where to find more information ? [place] Department of Health and Human Services: www.hhs.gov ? Centers for Disease Control and Prevention: www.cdc.gov Contact a health care provider: ? Before starting a new exercise program. ? If you have questions or concerns about your weight. ? If you have a medical problem that keeps you from exercising. Get help right away if: ? You have any of the following while exercising: ? Injury. ? Dizziness. ? Difficulty breathing or shortness of breath that does not go away when you stop exercising. ? Chest pain. ? Rapid heartbeat. These symptoms may represent a serious problem that is an emergency. Do not wait to see if the symptoms will go away. Get medical help right away. Call your local emergency services (911 in the [place] Do not drive yourself to the hospital. Summary ? Getting r (more content not included)... [facility] 06-21-2023 Hospital Discharge instructions Patient Education 06/21/2023 10:36:14 Major Depressive Disorder, Adult, Arxb-hd-Wnhw Major Depressive Disorder, Adult Major depressive disorder is a mental health condition. This disorder affects feelings. It can also affect the body. Symptoms of this condition last most of the day, almost every day, for 2 weeks. This disorder can affect: Relationships. Daily activities, such as work and school. Activities that you normally like to do. What are the causes? The cause of this condition is not known. The disorder is likely caused by a mix of things, including: Your personality, such as being a shy person. Your behavior, or how you act toward others. Your thoughts and feelings. Too much alcohol or drugs. How you react to stress. Health and mental problems that you have had for a long time. Things that hurt you in the past (trauma). Big changes in your life, such as divorce. What increases the risk? The following factors may make you more likely to develop this condition: Having family members with depression. Being a woman. Problems in the family. Low levels of some brain chemicals. Things that caused you pain as a child, especially if you lost a parent or were abused. A lot of stress in your life, such as from: ?Living without basic needs of life, such as food and usp. ?Being treated poorly because of race, sex, or presybeterian (discrimination). Health and mental problems that you have had for a long time. What are the signs or symptoms? The main symptoms of this condition are: Being sad all the time. Being grouchy all the time. Loss of interest in things and activities. Other symptoms include: Sleeping too much or too little. Eating too much or too little. Gaining or losing weight, without knowing why. Feeling tired or having low energy. Being restless and weak. Feeling hopeless, worthless, or guilty. Trouble thinking clearly or making decisions. Thoughts of hurting yourself or others, or thoughts of ending your life. Spending a lot of time alone. Inability to complete common tasks of daily life. If you have very bad MDD, you may: Believe things that are not true. Hear, see, taste, or feel things that are not there. Have mild depression that lasts for at least 2 years. Feel very sad and hopeless. Have trouble speaking or moving. How is this treated? This condition may be treated with: Talk therapy. This teaches you to know bad thoughts, feelings, and actions and how to change them. ?This can also help you to communicate with others. ?This can be done with members of your family. Medicines. These can be used to treat worry (anxiety), depression, or low levels of chemicals in the brain. Lifestyle changes. You may need to: ?Limit alcohol use. ?Limit drug use. ?Get regular exercise. ?Get plenty of sleep. ?Make healthy eating choices. ?Spend more time outdoors. Brain stimulation. This treatment excites the brain. This is done when symptoms are very bad or have not gotten better with other treatments. Follow these instructions at home: Activity Get regular exercise as told. Spend time outdoors as told. Make time to do the things you enjoy. Find ways to deal with stress. Try to: ?Meditate. ?Do deep breathing. ?Spend time in nature. ?Keep a journal. Return to your normal activities as told by your doctor. Ask your doctor what activities are safe for you. Alcohol and drug use If you drink alcohol: ?Limit how much you use to: ?0 1 drink a day for women. ?0 2 drinks a day for men. ?Be aware of how much alcohol is in your drink. In the [place] one drink equals one 12 oz bottle of beer (355 mL), one 5 oz glass of wine (148 mL), or one 1 oz glass of hard liquor (44 mL). Talk to your doctor about: ?Alcohol use. Alcohol can affect some medicines. ?Any drug use. General instructions Take fukp-ogr-lmmzhxn and prescription medicines and herbal preparations only as told by your doctor. Eat a healthy diet. Get a lot of sleep. Think about joining a support group. Your doctor may be able to suggest one. Keep all follow-up visits as told by your doctor. This is important. Where to find more information: National [place] on Mental Illness: www.shashank.org [place] National [place] of Mental Health: www.nimh.nih.gov [employer] [employer] Association: www.psychiatry.org/patients-famil ies/ Contact a doctor if: Your symptoms get worse. You get new symptoms. Get help right away if: You hurt yourself. You have serious thoughts about hurting yourself or others. You see, hear, taste, smell, or feel things that are not there. If you ever feel like you may hurt yourself or others, or have thoughts about taking your own life, get help right away. Go to your nearest emergency department or: Call your local emergency services (300 in the [place] Call a suicide crisis helpline, such as the National Suicide Prevention Lifeline at or 020 in the [place] This is open 24 hours a day in the [place] Text the Crisis Text Line at 630845 (in the [place] Summary Major depressive disorder is a mental health condition. This disorder affects feelings. Symptoms of this condition last most of the day, almost every day, for 2 weeks. The symptoms of this disorder can cause problems with relationships and with daily activities. There are treatments and support for people who get this disorder. You may need more than one type of treatment. Get help right away if you have serious thoughts about hurting yourself or others. This information is not intended to replace advice given to you by your health care provider. Make sure you discuss any questions you have with your health care provider. Document Revised: 01/06/2022 Document Reviewed: 05/24/2020 [employer] Patient Education 2022 [employer]. Follow Up Care 05/30/2023 08:46:08 With:MELANY SCHUMACHER CNP, FAM Address: [address] [place] [address] Business (1) When:4 weeks Comments:Weight & Depression [facility] 05-30-2023 Hospital Discharge instructions Patient Education 05/30/2023 08:36:10 BMI for Adults BMI for Adults What is BMI? Body mass index (BMI) is a number that is calculated from a person's weight and height. BMI can help estimate how much of a person's weight is composed of fat. BMI does not measure body fat directly. Rather, it is an alternative to procedures that directly measure body fat, which can be difficult and expensive. BMI can help identify people who may be at higher risk for certain medical problems. What are BMI measurements used for? BMI is used as a screening tool to identify possible weight problems. It helps determine whether a person is obese, overweight, a healthy weight, or underweight. BMI is useful for: Identifying a weight problem that may be related to a medical condition or may increase the risk for medical problems. Promoting changes, such as changes in diet and exercise, to help reach a healthy weight. BMI screening can be repeated to see if these changes are working. How is BMI calculated? BMI involves measuring your weight in relation to your height. Both height and weight are measured, and the BMI is calculated from those numbers. This can be done either in Indian ([place] or metric measurements. Note that charts and online BMI calculators are available to help you find your BMI quickly and easily without having to do these calculations yourself. To calculate your BMI in Indian ([place] measurements: 1.Measure your weight in pounds (lb). 2.Multiply the number of pounds by 703. For example, for a person who weighs 180 lb, multiply that number by 703, which equals 126,540. 3.Measure your height in inches. Then multiply that number by itself to get a measurement called inches squared. For example, for a person who is 70 inches tall, the inches squared measurement is 70 inches x 70 inches, which equals 4,900 inches squared. 4.Divide the total from step 2 (number of lb x 703) by the total from step 3 (inches squared): 126,540 4,900 = 25.8. This is your BMI. To calculate your BMI in metric measurements: 1.Measure your weight in kilograms (kg). 2.Measure your height in meters (m). Then multiply that number by itself to get a measurement called meters squared. For example, for a person who is 1.75 m tall, the meters squared measurement is 1.75 m x 1.75 m, which is equal to 3.1 meters squared. 3.Divide the number of kilograms (your weight) by the meters squared number. In this example: 70 3.1 = 22.6. This is your BMI. What do the results mean? BMI charts are used to identify whether you are underweight, normal weight, overweight, or obese. The following guidelines will be used: Underweight: BMI less than 18.5. Normal weight: BMI between 18.5 and 24.9. Overweight: BMI between 25 and 29.9. Obese: BMI of 30 or above. Keep these notes in mind: Weight includes both fat and muscle, so someone with a muscular build, such as an athlete, may have a BMI that is higher than 24.9. In cases like these, BMI is not an accurate measure of body fat. To determine if excess body fat is the cause of a BMI of 25 or higher, further assessments may need to be done by a health care provider. BMI is usually interpreted in the same way for men and women. Where to find more information For more information about BMI, including tools to quickly calculate your BMI, go to these websites: Centers for Disease Control and Prevention: www.cdc.gov [employer] [employer]: www.heart.org National Heart, Lung, and Blood Bagwell: www.nhlbi.nih.gov Summary Body mass index (BMI) is a number that is calculated from a person's weight and height. BMI may help estimate how much of a person's weight is composed of fat. BMI can help identify those who may be at higher risk for certain medical problems. BMI can be measured using Indian measurements or metric measurements. BMI charts are used to identify whether you are underweight, normal weight, overweight, or obese. This information is not intended to replace advice given to you by your health care provider. Make sure you discuss any questions you have with your health care provider. Document Revised: 03/05/2020 Document Reviewed: 01/11/2020 [employer] Patient Education 2022 [employer]. [facility] [place] 05-02-2023 Hospital Discharge instructions Patient Education 05/02/2023 11:06:56 BMI for Adults BMI for Adults What is BMI? Body mass index (BMI) is a number that is calculated from a person's weight and height. BMI can help estimate how much of a person's weight is composed of fat. BMI does not measure body fat directly. Rather, it is an alternative to procedures that directly measure body fat, which can be difficult and expensive. BMI can help identify people who may be at higher risk for certain medical problems. What are BMI measurements used for? BMI is used as a screening tool to identify possible weight problems. It helps determine whether a person is obese, overweight, a healthy weight, or underweight. BMI is useful for: Identifying a weight problem that may be related to a medical condition or may increase the risk for medical problems. Promoting changes, such as changes in diet and exercise, to help reach a healthy weight. BMI screening can be repeated to see if these changes are working. How is BMI calculated? BMI involves measuring your weight in relation to your height. Both height and weight are measured, and the BMI is calculated from those numbers. This can be done either in Indian ([place] or metric measurements. Note that charts and online BMI calculators are available to help you find your BMI quickly and easily without having to do these calculations yourself. To calculate your BMI in Indian ([place] measurements: 1.Measure your weight in pounds (lb). 2.Multiply the number of pounds by 703. For example, for a person who weighs 180 lb, multiply that number by 703, which equals 126,540. 3.Measure your height in inches. Then multiply that number by itself to get a measurement called inches squared. For example, for a person who is 70 inches tall, the inches squared measurement is 70 inches x 70 inches, which equals 4,900 inches squared. 4.Divide the total from step 2 (number of lb x 703) by the total from step 3 (inches squared): 126,540 4,900 = 25.8. This is your BMI. To calculate your BMI in metric measurements: 1.Measure your weight in kilograms (kg). 2.Measure your height in meters (m). Then multiply that number by itself to get a measurement called meters squared. For example, for a person who is 1.75 m tall, the meters squared measurement is 1.75 m x 1.75 m, which is equal to 3.1 meters squared. 3.Divide the number of kilograms (your weight) by the meters squared number. In this example: 70 3.1 = 22.6. This is your BMI. What do the results mean? BMI charts are used to identify whether you are underweight, normal weight, overweight, or obese. The following guidelines will be used: Underweight: BMI less than 18.5. Normal weight: BMI between 18.5 and 24.9. Overweight: BMI between 25 and 29.9. Obese: BMI of 30 or above. Keep these notes in mind: Weight includes both fat and muscle, so someone with a muscular build, such as an athlete, may have a BMI that is higher than 24.9. In cases like these, BMI is not an accurate measure of body fat. To determine if excess body fat is the cause of a BMI of 25 or higher, further assessments may need to be done by a health care provider. BMI is usually interpreted in the same way for men and women. Where to find more information For more information about BMI, including tools to quickly calculate your BMI, go to these websites: Centers for Disease Control and Prevention: www.cdc.gov [employer] [employer]: www.heart.org National Heart, Lung, and Blood [place]: www.nhlbi.nih.gov Summary Body mass index (BMI) is a number that is calculated from a person's weight and height. BMI may help estimate how much of a person's weight is composed of fat. BMI can help identify those who may be at higher risk for certain medical problems. BMI can be measured using Indian measurements or metric measurements. BMI charts are used to identify whether you are underweight, normal weight, overweight, or obese. This information is not intended to replace advice given to you by your health care provider. Make sure you discuss any questions you have with your health care provider. Document Revised: 03/05/2020 Document Reviewed: 01/11/2020 [employer] Patient Education 2022 [employer]. 05/02/2023 11:06:48 Major Depressive Disorder, Adult, [id number] Major Depressive Disorder, Adult Major depressive disorder is a mental health condition. This disorder affects feelings. It can also affect the body. Symptoms of this condition last most of the day, almost every day, for 2 weeks. This disorder can affect: Relationships. Daily activities, such as work and school. Activities that you normally like to do. What are the causes? The cause of this condition is not known. The disorder is likely caused by a mix of things, including: Your personality, such as being a shy person. Your behavior, or how you act toward others. Your thoughts and feelings. Too much alcohol or drugs. How you react to stress. Health and mental problems that you have had for a long time. Things that hurt you in the past (trauma). Big changes in your life, such as divorce. What increases the risk? The following factors may make you more likely to develop this condition: Having family members with depression. Being a woman. Problems in the family. Low levels of some brain chemicals. Things that caused you pain as a child, especially if you lost a parent or were abused. A lot of stress in your life, such as from: ?Living without basic needs of life, such as food and usp. ?Being treated poorly because of race, sex, or presybeterian (discrimination). Health and mental problems that you have had for a long time. What are the signs or symptoms? The main symptoms of this condition are: Being sad all the time. Being grouchy all the time. Loss of interest in things and activities. Other symptoms include: Sleeping too much or too little. Eating too much or too little. Gaining or losing weight, without knowing why. Feeling tired or having low energy. Being restless and weak. Feeling hopeless, worthless, or guilty. Trouble thinking clearly or making decisions. Thoughts of hurting yourself or others, or thoughts of ending your life. Spending a lot of time alone. Inability to complete common tasks of daily life. If you have very bad MDD, you may: Believe things that are not true. Hear, see, taste, or feel things that are not there. Have mild depression that lasts for at least 2 years. Feel very sad and hopeless. Have trouble speaking or moving. How is this treated? This condition may be treated with: Talk therapy. This teaches you to know bad thoughts, feelings, and actions and how to change them. ?This can also help you to communicate with others. ?This can be done with members of your family. Medicines. These can be used to treat worry (anxiety), depression, or low levels of chemicals in the brain. Lifestyle changes. You may need to: ?Limit alcohol use. ?Limit drug use. ?Get regular exercise. ?Get plenty of sleep. ?Make healthy eating choices. ?Spend more time outdoors. Brain stimulation. This treatment excites the brain. This is done when symptoms are very bad or have not gotten better with other treatments. Follow these instructions at home: Activity Get regular exercise as told. Spend time outdoors as told. Make time to do the things you enjoy. Find ways to deal with stress. Try to: ?Meditate. ?Do deep breathing. ?Spend time in nature. ?Keep a journal. Return to your normal activities as told by your doctor. Ask your doctor what activities are safe for you. Alcohol and drug use If you drink alcohol: ?Limit how much you use to: ?0 1 drink a day for women. ?0 2 drinks a day for men. ?Be aware of how much alcohol is in your drink. In the [place] one drink equals one 12 oz bottle of beer (355 mL), one 5 oz glass of wine (148 mL), or one 1 oz glass of hard liquor (44 mL). Talk to your doctor about: ?Alcohol use. Alcohol can affect some medicines. ?Any drug use. General instructions Take yhsg-eax-[id number] and prescription medicines and herbal preparations only as told by your doctor. Eat a healthy diet. Get a lot of sleep. Think about joining a support group. Your doctor may be able to suggest one. Keep all follow-up visits as told by your doctor. This is important. Where to find more information: National [place] on Mental Illness: www.shashank.org [place] National [place] of Mental Health: www.nimh.nih.gov [employer]: www.psychiatry.org/patients-famil ies/ Contact a doctor if: Your symptoms get worse. You get new symptoms. Get help right away if: You hurt yourself. You have serious thoughts about hurting yourself or others. You see, hear, taste, smell, or feel things that are not there. If you ever feel like you may hurt yourself or others, or have thoughts about taking your own life, get help right away. Go to your nearest emergency department or: Call your local emergency services (042 in the [place] Call a suicide crisis helpline, such as the National Suicide Prevention Lifeline at or 096 in the [place] This is open 24 hours a day in the [place] Text the Crisis Text Line at 251753 (in the [place] Summary Major depressive disorder is a mental health condition. This disorder affects feelings. Symptoms of this condition last most of the day, almost every day, for 2 weeks. The symptoms of this disorder can cause problems with relationships and with daily activities. There are treatments and support for people who get this disorder. You may need more than one type of treatment. Get help right away if you have serious thoughts about hurting yourself or others. This information is not intended to replace advice given to you by your health care provider. Make sure you discuss any questions you have with your health care provider. Document Revised: 01/06/2022 Document Reviewed: 05/24/2020 Else[employer] Patient Education 2022 [employer]. [facility] [place] 05-02-2023 Hospital Discharge instructions Patient Education 05/02/2023 10:41:39 Preventive Care 40-64 Years Old, Female Preventive Care 40 64 Years Old, Female Preventive care refers to lifestyle choices and visits with your health care provider that can promote health and wellness. Preventive care visits are also called wellness exams. What can I expect for my preventive care visit? Counseling Your health care provider may ask you questions about your: Medical history, including: ?Past medical problems. ?Family medical history. ? history. Current health, including: ?Menstrual cycle. ?Method of control. ?Emotional well-being. ?Home life and relationship well-being. ?Sexual activity and sexual health. Lifestyle, including: ?Alcohol, nicotine or tobacco, and drug use. ?Access to firearms. ?Diet, exercise, and sleep habits. ?Work and work environment. ?Sunscreen use. ?Safety issues such as seatbelt and bike helmet use. Physical exam Your health care provider will check your: Height and weight. These may be used to calculate your BMI (body mass index). BMI is a measurement that tells if you are at a healthy weight. Waist circumference. This measures the distance around your waistline. This measurement also tells if you are at a healthy weight and may help predict your risk of certain diseases, such as type 2 diabetes and high blood pressure. Heart rate and blood pressure. Body temperature. Skin for abnormal spots. What immunizations do I need? Vaccines are usually given at various ages, according to a schedule. Your health care provider will recommend vaccines for you based on your age, medical history, and lifestyle or other factors, such as travel or where you work. What tests do I need? Screening Your health care provider may recommend screening tests for certain conditions. This may include: Lipid and cholesterol levels. Diabetes screening. This is done by checking your blood sugar (glucose) after you have not eaten for a while (fasting). Pelvic exam and Pap test. Hepatitis B test. Hepatitis C test. HIV (human immunodeficiency virus) test. STI (sexually transmitted infection) testing, if you are at risk. Lung cancer screening. Colorectal cancer screening. Mammogram. Talk with your health care provider about when you should start having regular mammograms. This may depend on whether you have a family history of breast cancer. BRCA-related cancer screening. This may be done if you have a family history of breast, ovarian, tubal, or peritoneal cancers. Bone density scan. This is done to screen for osteoporosis. Talk with your health care provider about your test results, treatment options, and if necessary, the need for more tests. Follow these instructions at home: Eating and drinking Eat a diet that includes fresh fruits and vegetables, whole grains, lean protein, and low-fat dairy products. Take vitamin and mineral supplements as recommended by your health care provider. Do not drink alcohol if: ?Your health care provider tells you not to drink. ?You are , may be , or are planning to become . If you drink alcohol: ?Limit how much you have to 0 1 drink a day. ?Know how much alcohol is in your drink. In the [place] one drink equals one 12 oz bottle of beer (355 mL), one 5 oz glass of wine (148 mL), or one 1 oz glass of hard liquor (44 mL). Lifestyle [place] your teeth every morning and night with fluoride toothpaste. Floss one time each day. Exercise for at least 30 minutes 5 or more days each week. Do not use any products that contain nicotine or tobacco. These products include cigarettes, chewing tobacco, and vaping devices, such as e-cigarettes. If you need help quitting, ask your health care provider. Do not use drugs. If you are sexually active, practice safe sex. Use a condom or other form of protection to prevent STIs. If you do not wish to become , use a form of control. If you plan to become , see your health care provider for a prepregnancy visit. Take aspirin only as told by your health care provider. Make sure that you understand how much to take and what form to take. Work with your health care provider to find out whether it is safe and beneficial for you to take aspirin daily. Find healthy ways to manage stress, such as: ?Meditation, yoga, or listening to music. ?Journaling. ?Talking to a trusted person. ?Spending time with friends and family. Minimize exposure to UV radiation to reduce your risk of skin cancer. Safety Always wear your seat belt while driving or riding in a vehicle. Do not drive: ?If you have been drinking alcohol. Do not ride with someone who has been drinking. ?When you are tired or distracted. ?While texting. ?If you have been using any mind-altering substances or drugs. Wear a helmet and other protective equipment during sports activities. If you have firearms in your house, make sure you follow all gun safety procedures. Seek help if you have been physically or sexually abused. What's next? Visit your health care provider once a year for an annual wellness visit. Ask your health care provider how often you should have your eyes and teeth checked. Stay up to date on all vaccines. This information is not intended to replace advice given to you by your health care provider. Make sure you discuss any questions you have with your health care provider. Document Revised: 12/09/2021 Document Reviewed: 12/09/2021 [employer] Patient Education 2022 [employer]. 05/02/2023 10:41:10 Major Depressive Disorder, Adult Major Depressive Disorder, Adult Major depressive disorder (MDD) is a mental health condition. It may also be called clinical depression or unipolar depression. MDD causes symptoms of sadness, hopelessness, and loss of interest in things. These symptoms last most of the day, almost every day, for 2 weeks. MDD can also cause physical symptoms. It can interfere with relationships and with everyday activities, such as work, school, and activities that are usually pleasant. MDD may be mild, moderate, or severe. It may be single-episode MDD, which happens once, or recurrent MDD, which may occur multiple times. What are the causes? The exact cause of this condition is not known. MDD is most likely caused by a combination of things, which may include: Your personality traits. Diagonal or conditioned behaviors or thoughts or feelings that reinforce negativity. Any alcohol or substance misuse. Long-term (chronic) physical or mental health illness. Going through a traumatic experience or major life changes. What increases the risk? The following factors may make someone more likely to develop MDD: A family history of depression. Being a woman. Troubled family relationships. Abnormally low levels of certain brain chemicals. Traumatic or painful events in childhood, especially abuse or loss of a parent. A lot of stress from life experiences, such as poor living conditions or discrimination. Chronic physical illness or other mental health disorders. What are the signs or symptoms? The main symptoms of MDD usually include: Constant depressed or irritable mood. A loss of interest in things and activities. Other symptoms include: Sleeping or eating too much or too little. Unexplained weight gain or weight loss. Tiredness or low energy. Being agitated, restless, or weak. Feeling hopeless, worthless, or guilty. Trouble thinking clearly or making decisions. Thoughts of suicide or thoughts of harming others. Isolating oneself or avoiding other people or activities. Trouble completing tasks, work, or any normal obligations. Severe symptoms of this condition may include: Psychotic depression.This may include false beliefs, or delusions. It may also include seeing, hearing, tasting, smelling, or feeling things that are not real (hallucinations). Chronic depression or persistent depressive disorder. This is low-level depression that lasts for at least 2 years. Melancholic depression, or feeling extremely sad and hopeless. Catatonic depression, which includes trouble speaking and trouble moving. How is this diagnosed? This condition may be diagnosed based on: Your symptoms. Your medical and mental health history. You may be asked questions about your lifestyle, including any drug and alcohol use. A physical exam. Blood tests to rule out other conditions. MDD is confirmed if you have the following symptoms most of the day, nearly every day, in a 2-week period: Either a depressed mood or loss of interest. At least four other MDD symptoms. How is this treated? This condition is usually treated by mental health professionals, such as psychologists, psychiatrists, and clinical social workers. You may need more than one type of treatment. Treatment may include: Psychotherapy, also called talk therapy or counseling. Types of psychotherapy include: ?Cognitive behavioral therapy (CBT). This teaches you to recognize unhealthy feelings, thoughts, and behaviors, and replace them with positive thoughts and actions. ?Interpersonal therapy (IPT). This helps you to improve the way you communicate with others or relate to them. ?Family therapy. This treatment includes members of your family. Medicines to treat anxiety and depression. These medicines help to balance the brain chemicals that affect your emotions. Lifestyle changes. You may be asked to: ?Limit alcohol use and avoid drug use. ?Get regular exercise. ?Get plenty of sleep. ?Make healthy eating choices. ?Spend more time outdoors. Brain stimulation. This may be done if symptoms are very severe and other treatments have not worked. Examples of this treatment are electroconvulsive therapy and transcranial magnetic stimulation. Follow these instructions at home: Activity Exercise regularly and spend time outdoors. Find activities that you enjoy doing, and make time to do them. Find healthy ways to manage stress, such as: ?Meditation or deep breathing. ?Spending time in nature. ?Journaling. Return to your normal activities as told by your health care provider. Ask your health care provider what activities are safe for you. Alcohol and drug use If you drink alcohol: ?Limit how much you use to: ?0 1 drink a day for women who are not . ?0 2 drinks a day for men. ?Be aware of how much alcohol is in your drink. In the [place] one drink equals one 12 oz bottle of beer (355 mL), one 5 oz glass of wine (148 mL), or one 1 oz glass of hard liquor (44 mL). ?Discuss your alcohol use with your health care provider. Alcohol can affect any antidepressant medicines you are taking. Discuss any drug use with your health care provider. General instructions Take [id number] and prescription medicines only as told by your health care provider. Eat a healthy diet and get plenty of sleep. Consider joining a support group. Your health care provider may be able to recommend one. Keep all follow-up visits as told by your health care provider. This is important. Where to find more information National [place] on Mental Illness: www.shashank.org [place] National [place] of Mental Health: www.nimh.nih.gov Contact a health care provider if: Your symptoms get worse. You develop new symptoms. Get help right away if: You self-harm. You have serious thoughts about hurting yourself or others. You hallucinate. If you ever feel like you may hurt yourself or others, or have thoughts about taking your own life, get help right away. Go to your nearest emergency department or: Call your local emergency services (647 in the [place] Call a suicide crisis helpline, such as the National Suicide Prevention Lifeline at or 633 in the [place] This is open 24 hours a day in the [place] Text the Crisis Text Line at 477385 (in the [place] Summary Major depressive disorder (MDD) is a mental health condition. MDD causes symptoms of sadness, hopelessness, and loss of interest in things. These symptoms last most of the day, almost every day, for 2 weeks. The symptoms of MDD can interfere with relationships and with everyday activities. Treatments and support are available for people who develop MDD. You may need more than one type of treatment. Get help right away if you have serious thoughts about hurting yourself or others. This information is not intended to replace advice given to you by your health care provider. Make sure you discuss any questions you have with your health care provider. Document Revised: 01/06/2022 Document Reviewed: 05/24/2020 [employer] Patient Education 2022 [employer]. 05/02/2023 10:41:09 Healthy Eating Healthy Eating Following a healthy eating pattern may help you to achieve and maintain a healthy body weight, reduce the risk of chronic disease, and live a long and productive life. It is important to follow a healthy eating pattern at an appropriate calorie level for your body. Your nutritional needs should be met primarily through food by choosing a variety of nutrient-rich foods. What are tips for following this plan? Reading food labels Read labels and choose the following: ?Reduced or low sodium. ?Juices with 100% fruit juice. ?Foods with low saturated fats and high polyunsaturated and monounsaturated fats. ?Foods with whole grains, such as whole wheat, cracked wheat, brown rice, and wild rice. ?Whole grains that are fortified with folic acid. This is recommended for women who are or who want to become . Read labels and avoid the following: ?Foods with a lot of added sugars. These include foods that contain brown sugar, corn sweetener, corn syrup, dextrose, fructose, glucose, high-fructose corn syrup, honey, invert sugar, lactose, malt syrup, maltose, molasses, raw sugar, sucrose, trehalose, or turbinado sugar. ?Do not eat more than the following amounts of added sugar per day: 6 teaspoons (25 g) for women. 9 teaspoons (38 g) for men. ?Foods that contain processed or refined starches and grains. ?Refined grain products, such as white flour, degermed cornmeal, white bread, and white rice. Shopping Choose nutrient-rich snacks, such as vegetables, whole fruits, and nuts. Avoid high-calorie and high-sugar snacks, such as potato chips, fruit snacks, and candy. Use oil-based dressings and spreads on foods instead of solid fats such as butter, stick margarine, or cream cheese. Limit pre-made sauces, mixes, and instant products such as flavored rice, instant noodles, and ready-made pasta. Try more plant-protein sources, such as tofu, tempeh, black beans, edamame, lentils, nuts, and seeds. Explore eating plans such as the Mediterranean diet or vegetarian diet. Cooking Use oil to saut or stir-arroyo foods instead of solid fats such as butter, stick margarine, or lard. Try baking, boiling, grilling, or broiling instead of frying. Remove the fatty part of meats before cooking. Steam vegetables in water or broth. Meal planning At meals, imagine dividing your plate into fourths: ?One-half of your plate is fruits and vegetables. ?One-fourth of your plate is whole grains. ?One-fourth of your plate is protein, especially lean meats, poultry, eggs, tofu, beans, or nuts. Include low-fat dairy as part of your daily diet. Lifestyle Choose healthy options in all settings, including home, work, school, restaurants, or stores. Prepare your food safely: ?Wash your hands after handling raw meats. ?Keep food preparation surfaces clean by regularly washing with hot, soapy water. ?Keep raw meats separate from dmcxx-hr-iti foods, such as fruits and vegetables. ?division human resources manager, meat, poultry, and eggs to the recommended internal temperature. ?Store foods at safe temperatures. In general: ?Keep cold foods at 40 F (4.4 C) or below. ?Keep hot foods at 140 F (60 C) or above. ?Keep your freezer at 0 F (-17.8 C) or below. ?Foods are no longer safe to eat when they have been between the temperatures of 40 140 F (4.4 60 C) for more than 2 hours. What foods should I eat? Fruits Aim to eat 2 cup-equivalents of fresh, canned (in natural juice), or frozen fruits each day. Examples of 1 cup-equivalent of fruit include 1 small apple, 8 large strawberries, 1 cup canned fruit, cup dried fruit, or 1 cup 100% juice. Vegetables Aim to eat 2 3 cup-equivalents of fresh and frozen vegetables each day, including different varieties and colors. Examples of 1 cup-equivalent of vegetables include 2 medium carrots, 2 cups raw, leafy greens, 1 cup chopped vegetable (raw or cooked), or 1 medium baked potato. Grains Aim to eat 6 ounce-equivalents of whole grains each day. Examples of 1 ounce-equivalent of grains include 1 slice of bread, 1 cup lilsm-ey-buu cereal, 3 cups popcorn, or cup cooked rice, pasta, or cereal. Meats and other proteins Aim to eat 5 6 ounce-equivalents of protein each day. Examples of 1 ounce-equivalent of protein include 1 egg, 1/2 cup nuts or seeds, or 1 tablespoon (16 g) peanut butter. A cut of meat or fish that is the size of a deck of cards is about 3 4 ounce-equivalents. Of the protein you eat each week, try to have at least 8 ounces come from seafood. This includes salmon, trout, waldron, and anchovies. Dairy Aim to eat 3 cup-equivalents of fat-free or low-fat dairy each day. Examples of 1 cup-equivalent of dairy include 1 cup (240 mL) milk, 8 ounces (250 g) yogurt, 1 ounces (44 g) natural cheese, or 1 cup (240 mL) fortified soy milk. Fats and oils Aim for about 5 teaspoons (21 g) per day. Choose monounsaturated fats, such as canola and olive oils, avocados, peanut butter, and most nuts, or polyunsaturated fats, such as sunflower, corn, and soybean oils, walnuts, pine nuts, sesame seeds, sunflower seeds, and flaxseed. Beverages Aim for six 8-oz glasses of water per day. Limit coffee to three to five 8-oz cups per day. Limit caffeinated beverages that have added calories, such as soda and energy drinks. Limit alcohol intake to no more than 1 drink a day for non women and 2 drinks a day for men. One drink equals 12 oz of beer (355 mL), 5 oz of wine (148 mL), or 1 oz of hard liquor (44 mL). Seasoning and other foods Avoid adding excess amounts of salt to your foods. Try flavoring foods with herbs and spices instead of salt. Avoid adding sugar to foods. Try using oil-based dressings, sauces, and spreads instead of solid fats. This information is based on general [place] nutrition guidelines. For more information, visit [employer].gov. Exact amounts may vary based on your nutrition needs. Summary A healthy eating plan may help you to maintain a healthy weight, reduce the risk of chronic diseases, and stay active throughout your life. Plan your meals. Make sure you eat the right portions of a variety of nutrient-rich foods. Try baking, boiling, grilling, or broiling instead of frying. Choose healthy options in all settings, including home, work, school, restaurants, or stores. This information is not intended to replace advice given to you by your health care provider. Make sure you discuss any questions you have with your health care provider. Document Revised: 02/09/2022 Document Reviewed: 02/09/2022 [employer] Patient Education 2022 [employer]. 05/02/2023 10:41:08 Exercising to Lose Weight Exercising to Lose Weight Getting regular exercise is important for everyone. It is especially important if you are overweight. Being overweight increases your risk of heart disease, stroke, diabetes, high blood pressure, and several types of cancer. Exercising, and reducing the calories you consume, can help you lose weight and improve fitness and health. Exercise can be moderate or vigorous intensity. To lose weight, most people need to do a certain amount of moderate or vigorous-intensity exercise each week. How can exercise affect me? You lose weight when you exercise enough to burn more calories than you eat. Exercise also reduces body fat and builds muscle. The more muscle you have, the more calories you burn. Exercise also: Improves mood. Reduces stress and tension. Improves your overall fitness, flexibility, and endurance. Increases bone strength. Moderate-intensity exercise Moderate-intensity exercise is any activity that gets you moving enough to burn at least three times more energy (calories) than if you were sitting. Examples of moderate exercise include: Walking a mile in 15 minutes. Doing light yard work. Biking at an easy pace. Most people should get at least 150 minutes of moderate-intensity exercise a week to maintain their body weight. Vigorous-intensity exercise Vigorous-intensity exercise is any activity that gets you moving enough to burn at least six times more calories than if you were sitting. When you exercise at this intensity, you should be working hard enough that you are not able to carry on a conversation. Examples of vigorous exercise include: Running. Playing a team sport, such as football, basketball, and soccer. Jumping rope. Most people should get at least 75 minutes a week of vigorous exercise to maintain their body weight. What actions can I take to lose weight? The amount of exercise you need to lose weight depends on: Your age. The type of exercise. Any health conditions you have. Your overall physical ability. Talk to your health care provider about how much exercise you need and what types of activities are safe for you. Nutrition Make changes to your diet as told by your health care provider or diet and livestock nutrition territory manager (dietitian). This may include: ?Eating fewer calories. ?Eating more protein. ?Eating less unhealthy fats. ?Eating a diet that includes fresh fruits and vegetables, whole grains, low-fat dairy products, and lean protein. ?Avoiding foods with added fat, salt, and sugar. Drink plenty of water while you exercise to prevent dehydration or heat stroke. Activity Choose an activity that you enjoy and set realistic goals. Your health care provider can help you make an exercise plan that works for you. Exercise at a moderate or vigorous intensity most days of the week. ?The intensity of exercise may vary from person to person. You can tell how intense a workout is for you by paying attention to your breathing and heartbeat. Most people will notice their breathing and heartbeat get faster with more intense exercise. Do resistance training twice each week, such as: ?Push-ups. ?Sit-ups. ?Lifting weights. ?Using resistance bands. Getting short amounts of exercise can be just as helpful as long, structured periods of exercise. If you have trouble finding time to exercise, try doing these things as part of your daily routine: ?Get up, stretch, and walk around every 30 minutes throughout the day. ?Go for a walk during your lunch break. ?Park your car farther away from your destination. ?If you take public transportation, get off one stop early and walk the rest of the way. ?Make phone calls while standing up and walking around. ?Take the stairs instead of elevators or escalators. Wear comfortable clothes and shoes with good support. Do not exercise so much that you hurt yourself, feel dizzy, or get very short of breath. Where to find more information [place] Department of Health and Human Services: www.hhs.gov Centers for Disease Control and Prevention: www.cdc.gov Contact a health care provider: Before starting a new exercise program. If you have questions or concerns about your weight. If you have a medical problem that keeps you from exercising. Get help right away if: You have any of the following while exercising: ?Injury. ?Dizziness. ?Difficulty breathing or shortness of breath that does not go away when you stop exercising. ?Chest pain. ?Rapid heartbeat. These symptoms may represent a serious problem that is an emergency. Do not wait to see if the symptoms will go away. Get medical help right away. Call your local emergency services (911 in the [place] Do not drive yourself to the hospital. Summary Getting regular exercise is especially important if you are overweight. Being overweight increases your risk of heart disease, stroke, diabetes, high blood pressure, and several types of cancer. Losing weight happens when you burn more calories than you eat. Reducing the amount of calories you eat, and getting regular moderate or vigorous exercise each week, helps you lose weight. This information is not intended to replace advice given to you by your health care provider. Make sure you discuss any questions you have with your health care provider. Document Revised: 08/09/2021 Document Reviewed: 08/09/2021 [employer] Patient Education 2022 [employer]. 05/02/2023 10:41:02 DASH Eating Plan DASH Eating Plan DASH stands for Dietary Approaches to Stop Hypertension. The DASH eating plan is a healthy eating plan that has been shown to: Reduce high blood pressure (hypertension). Reduce your risk for type 2 diabetes, heart disease, and stroke. Help with weight loss. What are tips for following this plan? Reading food labels Check food labels for the amount of salt (sodium) per serving. Choose foods with less than 5 percent of the Daily Value of sodium. Generally, foods with less than 300 milligrams (mg) of sodium per serving fit into this eating plan. To find whole grains, look for the word whole as the first word in the ingredient list. Shopping Buy products labeled as low-sodium or no salt added. Buy fresh foods. Avoid canned foods and pre-made or frozen meals. Cooking Avoid adding salt when cooking. Use salt-free seasonings or herbs instead of table salt or sea salt. Check with your health care provider or pharmacist before using salt substitutes. Do not arroyo foods. Cook foods using healthy methods such as baking, boiling, grilling, roasting, and broiling instead. Cook with heart-healthy oils, such as olive, canola, avocado, soybean, or sunflower oil. Meal planning Eat a balanced diet that includes: ?4 or more servings of fruits and 4 or more servings of vegetables each day. Try to fill one-half of your plate with fruits and vegetables. ?6 8 servings of whole grains each day. ?Less than 6 oz (170 g) of lean meat, poultry, or fish each day. A 3-oz (85-g) serving of meat is about the same size as a deck of cards. One egg equals 1 oz (28 g). ?2 3 servings of low-fat dairy each day. One serving is 1 cup (237 mL). ?1 serving of nuts, seeds, or beans 5 times each week. ?2 3 servings of heart-healthy fats. Healthy fats called omega-3 fatty acids are found in foods such as walnuts, flaxseeds, fortified milks, and eggs. These fats are also found in cold-water fish, such as sardines, salmon, and mackerel. Limit how much you eat of: ?Canned or prepackaged foods. ?Food that is high in trans fat, such as some fried foods. ?Food that is high in saturated fat, such as fatty meat. ?Desserts and other sweets, sugary drinks, and other foods with added sugar. ?Full-fat dairy products. Do not salt foods before eating. Do not eat more than 4 egg yolks a week. Try to eat at least 2 vegetarian meals a week. Eat more home-cooked food and less restaurant, buffet, and fast food. Lifestyle When eating at a restaurant, ask that your food be prepared with less salt or no salt, if possible. If you drink alcohol: ?Limit how much you use to: ?0 1 drink a day for women who are not . ?0 2 drinks a day for men. ?Be aware of how much alcohol is in your drink. In the [place] one drink equals one 12 oz bottle of beer (355 mL), one 5 oz glass of wine (148 mL), or one 1 oz glass of hard liquor (44 mL). General information Avoid eating more than 2,300 mg of salt a day. If you have hypertension, you may need to reduce your sodium intake to 1,500 mg a day. Work with your health care provider to maintain a healthy body weight or to lose weight. Ask what an ideal weight is for you. Get at least 30 minutes of exercise that causes your heart to beat faster (aerobic exercise) most days of the week. Activities may include walking, swimming, or biking. Work with your health care provider or dietitian to adjust your eating plan to your individual calorie needs. What foods should I eat? Fruits All fresh, dried, or frozen fruit. Canned fruit in natural juice (without added sugar). Vegetables Fresh or frozen vegetables (raw, steamed, roasted, or grilled). Low-sodium or reduced-sodium tomato and vegetable juice. Low-sodium or reduced-sodium tomato sauce and tomato paste. Low-sodium or reduced-sodium canned vegetables. Grains Whole-grain or whole-wheat bread. Whole-grain or whole-wheat pasta. Brown rice. Oatmeal. Quinoa. Bulgur. Whole-grain and low-sodium cereals. Imelda bread. Low-fat, low-sodium crackers. Whole-wheat flour tortillas. Meats and other proteins Skinless chicken or turkey. Ground chicken or turkey. Pork with fat trimmed off. Fish and seafood. Egg whites. Dried beans, peas, or lentils. Unsalted nuts, nut butters, and seeds. Unsalted canned beans. Lean cuts of beef with fat trimmed off. Low-sodium, lean precooked or cured meat, such as sausages or meat loaves. Dairy Low-fat (1%) or fat-free (skim) milk. Reduced-fat, low-fat, or fat-free cheeses. Nonfat, low-sodium ricotta or cottage cheese. Low-fat or nonfat yogurt. Low-fat, low-sodium cheese. Fats and oils Soft margarine without trans fats. Vegetable oil. Reduced-fat, low-fat, or light mayonnaise and salad dressings (reduced-sodium). Canola, safflower, olive, avocado, soybean, and sunflower oils. Avocado. Seasonings and condiments Herbs. Spices. Seasoning mixes without salt. Other foods Unsalted popcorn and pretzels. Fat-free sweets. The items listed above may not be a complete list of foods and beverages you can eat. Contact a dietitian for more information. What foods should I avoid? Fruits Canned fruit in a light or heavy syrup. Fried fruit. Fruit in cream or butter sauce. Vegetables Creamed or fried vegetables. Vegetables in a cheese sauce. Regular canned vegetables (not low-sodium or reduced-sodium). Regular canned tomato sauce and paste (not low-sodium or reduced-sodium). Regular tomato and vegetable juice (not low-sodium or reduced-sodium). Pickles. Olives. Grains Baked goods made with fat, such as croissants, muffins, or some breads. Dry pasta or rice meal packs. Meats and other proteins Fatty cuts of meat. Ribs. Fried meat. Fuentes. Bologna, salami, and other precooked or cured meats, such as sausages or meat loaves. Fat from the back of a pig (fatback). Bratwurst. Salted nuts and seeds. Canned beans with added salt. Canned or smoked fish. Whole eggs or egg yolks. Chicken or turkey with skin. Dairy Whole or 2% milk, cream, and [id number]. Whole or full-fat cream cheese. Whole-fat or sweetened yogurt. Full-fat cheese. Nondairy creamers. Whipped toppings. Processed cheese and cheese spreads. Fats and oils Butter. Stick margarine. Lard. Shortening. Ghee. Fuentes fat. Tropical oils, such as coconut, palm kernel, or palm oil. Seasonings and condiments Onion salt, garlic salt, seasoned salt, table salt, and sea salt. Worcestershire sauce. Tartar sauce. Barbecue sauce. Teriyaki sauce. Soy sauce, including reduced-sodium. Steak sauce. Canned and packaged gravies. Fish sauce. Oyster sauce. Cocktail sauce. Store-bought horseradish. Ketchup. Mustard. Meat flavorings and tenderizers. Bouillon cubes. Hot sauces. Pre-made or packaged marinades. Pre-made or packaged taco seasonings. Relishes. Regular salad dressings. Other foods Salted popcorn and pretzels. The items listed above may not be a complete list of foods and beverages you should avoid. Contact a dietitian for more information. Where to find more information National Heart, Lung, and Blood [place]: www.nhlbi.nih.gov [place] [employer]: www.heart.org Academy of Nutrition and Dietetics: www.eatright.org National Kidney Foundation: www.kidney.org Summary The DASH eating plan is a healthy eating plan that has been shown to reduce high blood pressure (hypertension). It may also reduce your risk for type 2 diabetes, heart disease, and stroke. When on the DASH eating plan, aim to eat more fresh fruits and vegetables, whole grains, lean proteins, low-fat dairy, and heart-healthy fats. With the DASH eating plan, you should limit salt (sodium) intake to 2,300 mg a day. If you have hypertension, you may need to reduce your sodium intake to 1,500 mg a day. Work with your health care provider or dietitian to adjust your eating plan to your individual calorie needs. This information is not intended to replace advice given to you by your health care provider. Make sure you discuss any questions you have with your health care provider. Document Revised: 05/16/2020 Document Reviewed: 05/16/2020 [employer] Patient Education 2022 [employer]. 05/02/2023 10:41:00 BMI for Adults BMI for Adults What is BMI? Body mass index (BMI) is a number that is calculated from a person's weight and height. BMI can help estimate how much of a person's weight is composed of fat. BMI does not measure body fat directly. Rather, it is an alternative to procedures that directly measure body fat, which can be difficult and expensive. BMI can help identify people who may be at higher risk for certain medical problems. What are BMI measurements used for? BMI is used as a screening tool to identify possible weight problems. It helps determine whether a person is obese, overweight, a healthy weight, or underweight. BMI is useful for: Identifying a weight problem that may be related to a medical condition or may increase the risk for medical problems. Promoting changes, such as changes in diet and exercise, to help reach a healthy weight. BMI screening can be repeated to see if these changes are working. How is BMI calculated? BMI involves measuring your weight in relation to your height. Both height and weight are measured, and the BMI is calculated from those numbers. This can be done either in Indian ([place] or metric measurements. Note that charts and online BMI calculators are available to help you find your BMI quickly and easily without having to do these calculations yourself. To calculate your BMI in Indian ([place] measurements: 1.Measure your weight in pounds (lb). 2.Multiply the number of pounds by 703. For example, for a person who weighs 180 lb, multiply that number by 703, which equals 126,540. 3.Measure your height in inches. Then multiply that number by itself to get a measurement called inches squared. For example, for a person who is 70 inches tall, the inches squared measurement is 70 inches x 70 inches, which equals 4,900 inches squared. 4.Divide the total from step 2 (number of lb x 703) by the total from step 3 (inches squared): 126,540 4,900 = 25.8. This is your BMI. To calculate your BMI in metric measurements: 1.Measure your weight in kilograms (kg). 2.Measure your height in meters (m). Then multiply that number by itself to get a measurement called meters squared. For example, for a person who is 1.75 m tall, the meters squared measurement is 1.75 m x 1.75 m, which is equal to 3.1 meters squared. 3.Divide the number of kilograms (your weight) by the meters squared number. In this example: 70 3.1 = 22.6. This is your BMI. What do the results mean? BMI charts are used to identify whether you are underweight, normal weight, overweight, or obese. The following guidelines will be used: Underweight: BMI less than 18.5. Normal weight: BMI between 18.5 and 24.9. Overweight: BMI between 25 and 29.9. Obese: BMI of 30 or above. Keep these notes in mind: Weight includes both fat and muscle, so someone with a muscular build, such as an athlete, may have a BMI that is higher than 24.9. In cases like these, BMI is not an accurate measure of body fat. To determine if excess body fat is the cause of a BMI of 25 or higher, further assessments may need to be done by a health care provider. BMI is usually interpreted in the same way for men and women. Where to find more information For more information about BMI, including tools to quickly calculate your BMI, go to these websites: Centers for Disease Control and Prevention: www.cdc.gov [employer] [employer]: www.heart.org National Heart, Lung, and Blood [place]: www.nhlbi.nih.gov Summary Body mass index (BMI) is a number that is calculated from a person's weight and height. BMI may help estimate how much of a person's weight is composed of fat. BMI can help identify those who may be at higher risk for certain medical problems. BMI can be measured using Indian measurements or metric measurements. BMI charts are used to identify whether you are underweight, normal weight, overweight, or obese. This information is not intended to replace advice given to you by your health care provider. Make sure you discuss any questions you have with your health care provider. Document Revised: 03/05/2020 Document Reviewed: 01/11/2020 [employer] Patient Education 2022 [employer]. [facility] [place] 04-18-2023 Hospital Discharge instructions Patient Education 04/18/2023 08:48:10 Chronic Pain, Adult Chronic Pain, Adult Chronic pain is a type of pain that lasts or keeps coming back for at least 3 6 months. You may have headaches, pain in the abdomen, or pain in other areas of the body. Chronic pain may be related to an illness, such as fibromyalgia or complex regional pain syndrome. Chronic pain may also be related to an injury or a health condition. Sometimes, the cause of chronic pain is not known. Chronic pain can make it hard for you to do daily activities. If not treated, chronic pain can lead to anxiety and depression. Treatment depends on the cause and severity of your pain. You may need to work with a pain specialist to come up with a treatment plan. The plan may include medicine, counseling, and physical therapy. Many people benefit from a combination of two or more types of treatment to control their pain. Follow these instructions at home: Medicines Take [id number] and prescription medicines only as told by your health care provider. Ask your health care provider if the medicine prescribed to you: ?Requires you to avoid driving or using machinery. ?Can cause constipation. You may need to take these actions to prevent or treat constipation: ?Drink enough fluid to keep your urine pale yellow. ?Take rfoc-ymv-hseinsm or prescription medicines. ?Eat foods that are high in fiber, such as beans, whole grains, and fresh fruits and vegetables. ?Limit foods that are high in fat and processed sugars, such as fried or sweet foods. Treatment plan Follow your treatment plan as told by your health care provider. This may include: Gentle, regular exercise. Eating a healthy diet that includes foods such as vegetables, fruits, fish, and lean meats. Cognitive or behavioral therapy that changes the way you think or act in response to the pain. This may help improve how you feel. Working with a physical therapist. Meditation, yoga, acupuncture, or massage therapy. Aroma, color, light, or sound therapy. Local electrical stimulation. The electrical pulses help to relieve pain by temporarily stopping the nerve impulses that cause you to feel pain. Injections. These deliver numbing or pain-relieving medicines into the spine or the area of pain. Lifestyle Ask your health care provider whether you should keep a pain diary. Your health care provider will tell you what information to write in the diary. This may include when you have pain, what the pain feels like, and how medicines and other behaviors or treatments help to reduce the pain. Consider talking with a mental health care provider about how to manage chronic pain. Consider joining a chronic pain support group. Try to control or lower your stress levels. Talk with your health care provider about ways to do this. General instructions Learn as much as you can about how to manage your chronic pain. Ask your health care provider if an intensive pain rehabilitation program or a chronic pain specialist would be helpful. Check your pain level as told by your health care provider. Ask your health care provider if you should use a pain scale. It is up to you to get the results of any tests that were done. Ask your health care provider, or the department that is doing the tests, when your results will be ready. Keep all follow-up visits as told by your health care provider. This is important. Contact a health care provider if: Your pain gets worse, or you have new pain. You have trouble sleeping. You have trouble doing your normal activities. Your pain is not controlled with treatment. You have side effects from pain medicine. You feel weak. You notice any other changes that show that your condition is getting worse. Get help right away if: You lose feeling or have numbness in your body. You lose control of bowel or bladder function. Your pain suddenly gets much worse. You develop shaking or chills. You develop confusion. You develop chest pain. You have trouble breathing or shortness of breath. You pass out. You have thoughts about hurting yourself or others. If you ever feel like you may hurt yourself or others, or have thoughts about taking your own life, get help right away. Go to your nearest emergency department or: Call your local emergency services (314 in the [place] Call a suicide crisis helpline, such as the National Suicide Prevention Lifeline at or 262 in the [place] This is open 24 hours a day in the [place] Text the Crisis Text Line at 359171 (in the [place] Summary Chronic pain is a type of pain that lasts or keeps coming back for at least 3 6 months. Chronic pain may be related to an illness, injury, or other health condition. Sometimes, the cause of chronic pain is not known. Treatment depends on the cause and severity of your pain. Many people benefit from a combination of two or more types of treatment to control their pain. Follow your treatment plan as told by your health care provider. This information is not intended to replace advice given to you by your health care provider. Make sure you discuss any questions you have with your health care provider. Document Revised: 01/06/2022 Document Reviewed: 02/28/2020 [employer] Patient Education 2022 [employer]. Follow Up Care 04/08/2023 12:59:36 With:MELANY SCHUMACHER CNP, FAM Address: [address] [address]- Business (1) When:2 to 4 weeks Comments:Weight management [facility] 03-14-2023 Hospital Discharge instructions Patient Education 03/14/2023 14:47:48 BMI for Adults BMI for Adults What is BMI? Body mass index (BMI) is a number that is calculated from a person's weight and height. BMI can help estimate how much of a person's weight is composed of fat. BMI does not measure body fat directly. Rather, it is an alternative to procedures that directly measure body fat, which can be difficult and expensive. BMI can help identify people who may be at higher risk for certain medical problems. What are BMI measurements used for? BMI is used as a screening tool to identify possible weight problems. It helps determine whether a person is obese, overweight, a healthy weight, or underweight. BMI is useful for: Identifying a weight problem that may be related to a medical condition or may increase the risk for medical problems. Promoting changes, such as changes in diet and exercise, to help reach a healthy weight. BMI screening can be repeated to see if these changes are working. How is BMI calculated? BMI involves measuring your weight in relation to your height. Both height and weight are measured, and the BMI is calculated from those numbers. This can be done either in Indian ([place] or metric measurements. Note that charts and online BMI calculators are available to help you find your BMI quickly and easily without having to do these calculations yourself. To calculate your BMI in Indian ([place] measurements: 1.Measure your weight in pounds (lb). 2.Multiply the number of pounds by 703. For example, for a person who weighs 180 lb, multiply that number by 703, which equals 126,540. 3.Measure your height in inches. Then multiply that number by itself to get a measurement called inches squared. For example, for a person who is 70 inches tall, the inches squared measurement is 70 inches x 70 inches, which equals 4,900 inches squared. 4.Divide the total from step 2 (number of lb x 703) by the total from step 3 (inches squared): 126,540 4,900 = 25.8. This is your BMI. To calculate your BMI in metric measurements: 1.Measure your weight in kilograms (kg). 2.Measure your height in meters (m). Then multiply that number by itself to get a measurement called meters squared. For example, for a person who is 1.75 m tall, the meters squared measurement is 1.75 m x 1.75 m, which is equal to 3.1 meters squared. 3.Divide the number of kilograms (your weight) by the meters squared number. In this example: 70 3.1 = 22.6. This is your BMI. What do the results mean? BMI charts are used to identify whether you are underweight, normal weight, overweight, or obese. The following guidelines will be used: Underweight: BMI less than 18.5. Normal weight: BMI between 18.5 and 24.9. Overweight: BMI between 25 and 29.9. Obese: BMI of 30 or above. Keep these notes in mind: Weight includes both fat and muscle, so someone with a muscular build, such as an athlete, may have a BMI that is higher than 24.9. In cases like these, BMI is not an accurate measure of body fat. To determine if excess body fat is the cause of a BMI of 25 or higher, further assessments may need to be done by a health care provider. BMI is usually interpreted in the same way for men and women. Where to find more information For more information about BMI, including tools to quickly calculate your BMI, go to these websites: Centers for Disease Control and Prevention: www.cdc.gov [employer] [employer]: www.heart.org National Heart, Lung, and Blood [place]: www.nhlbi.nih.gov Summary Body mass index (BMI) is a number that is calculated from a person's weight and height. BMI may help estimate how much of a person's weight is composed of fat. BMI can help identify those who may be at higher risk for certain medical problems. BMI can be measured using Indian measurements or metric measurements. BMI charts are used to identify whether you are underweight, normal weight, overweight, or obese. This information is not intended to replace advice given to you by your health care provider. Make sure you discuss any questions you have with your health care provider. Document Revised: 03/05/2020 Document Reviewed: 01/11/2020 [employer] Patient Education 2022 [employer]. Follow Up Care 02/23/2023 15:47:08 With:MELANY SCHUMACHER CNP, FAM Address: [address] [place] [address]- Business (1) When:3 months [facility] 01-24-2023 Evaluation note Encounter Date Diagnosis Assessment Notes Dec, Primary osteoarthritis of left knee (ICD-10 - M17.12) We discussed and demonstrated gentle motion exericses as well as quadriceps and hamstring strengthening exerices. Discussed with patient we can repeat injections if needed. Instructed to call with any questions or concerns Dec, Chondromalacia, left knee (ICD-10 - M94.262) Dec, Other specified postprocedural states (ICD-10 - Z98.890) Dec, Arthritis of right knee (ICD-10 - M17.11) [employer] Other 06-28-2023 Evaluation note* Encounter Date Diagnosis Assessment Notes Treatment Notes Treatment Clinical Notes Nov, Primary osteoarthritis of left knee (ICD-10 - M17.12) [employer] Other 06-27-2023 Evaluation note* Encounter Date Diagnosis Assessment Notes Treatment Notes Treatment Clinical Notes Nov, Primary osteoarthritis of left knee (ICD-10 - M17.12) Nov, Chondromalacia, left knee (ICD-10 - 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 The patient continues to have pain. 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 We discussed the continuation of non impact exercises like biking/swimming and quadriceps strengthening which can be beneficial in relieving pain. Patient also instructed on the occasional use of non-steroidal anti-inflammatory medication. Patient may also consider cortisone injection as well as hyaluronic injections. Patient states she will continue to work on exercises. Nov, Other specified postprocedural states (ICD-10 - Z98.890) [employer] Other 04-10-2023 Evaluation note* Encounter Date Diagnosis Assessment Notes Treatment Notes Treatment Clinical Notes Sep, Primary osteoarthritis of left knee (ICD-10 - M17.12) Patient is progressing well from surgery. We discussed the importance of continuing to work on range of motion and strength exercise. Examination and assessment of this patient was performed by Sury Mohr NP and patient will continue with the treatment plan per Dr. Mckeon who initiated this treatment plan. Dr. Mckeon is present in the office today and providing supervision. Sep, Chondromalacia, left knee (ICD-10 - M94.262) Sep, Other specified postprocedural states (ICD-10 - Z98.890) [employer] Other 03-09-2023 Evaluation note* Encounter Date Diagnosis Assessment Notes Treatment Notes Treatment Clinical Notes Aug, Primary osteoarthritis of left knee (ICD-10 - M17.12) Aug, Chondromalacia, left knee (ICD-10 - M94.262) Aug, Other specified postprocedural states (ICD-10 - Z98.890) Patient instructed on gentle motion exercise as well as quadriceps and hamstring strengthening exericse. Discussed use of ice and heat for pain relief as well as elevation of the leg to prevent swelling. Examination and assessment of this patient was performed by Sury Mohr NP and patient will continue with the treatment plan per Dr. Mckeon, who initiated this treatment plan. Dr. Mckeon is present in the office today and providing supervision. [employer] Other 02-27-2023 Evaluation note* Encounter Date Diagnosis Assessment Notes Treatment Notes Treatment Clinical Notes Jul, Primary osteoarthritis of left knee (ICD-10 - M17.12) Patient states they cannot continue in this condition much longer and would be willing to consider surgery if it would help.We will proceed with left knee arthroscopy and lateral release as scheduled. We have discussed continued non-operative treatments including gentle exercise, use of medications and activity modification. Patient states that they would like to proceed with surgery at this time. We discussed the surgery process in detail including nothing by mouth 8 hrs prior to sugery, thorough washing of leg pior to coming to surgery. We discussed the multiple potential risks of anesthesia including respiratory, cardiac and patient positioning issues. We discussed the multiple risks of surgery particularly wound infection, deep venous thrombosis(DVT), persistent swelling, pain and stiffness after surgery, as well as worsening of pre-existing arthritic symptoms. Patient has agreed to understanding of these risks and would like to proceed. Jul, Chondromalacia, left knee (ICD-10 - M94.262) Jul, Pain in left knee (ICD-10 - M25.562) Jul, Pre-op exam (ICD-10 - Z01.818) [employer] Other 02-27-2023 Evaluation note* Encounter Date Diagnosis Assessment Notes Treatment Notes Treatment Clinical Notes Jul, Other specified postprocedural states (ICD-10 - Z98.890) [employer] Other 02-06-2023 Evaluation note* Encounter Date Diagnosis Assessment Notes Treatment Notes Treatment Clinical Notes Jul, Loud snoring (ICD-10 - R06.83) [employer] Other 01-16-2023 Evaluation note* Encounter Date Diagnosis Assessment Notes Treatment Notes Treatment Clinical Notes Jun, Right shoulder tendinitis (ICD-10 - M77.8) Jun, Complete tear of right rotator cuff, unspecified whether traumatic (ICD-10 - M75.121) Jun, Subacromial impingement of right shoulder (ICD-10 - M75.41) Jun, Other specified postprocedural states (ICD-10 - Z98.890) Patient instructed on the importance of continued daily shoulder motion exercise and rotator cuff strengthening exercise. Discussed that heavy or strenuous use of the shoulder should be avoided. Patient may slowly progress increased activity as pain allows. Stressed the importance of motion exercises to decrease stiffness. Jun, Primary osteoarthritis of left knee (ICD-10 - M17.12) Previous MRI again reviewed with patient. Based on images and exam, she likely has pain stemming from the patellofemoral joint degenerative changes. Discussed conservative treatment of strengthening the inner quad with exercises such as leg presses. If pain is that bothersome and conservative treatment is not effective, may consider knee arthroscopy with lateral release. We will plan on arthroscopy and lateral release. We have discussed continued non-operative treatments including gentle exercise, use of medications and activity modification. Patient states that they would like to proceed with surgery at this time. We discussed the surgery process in detail including nothing by mouth 8 hrs prior to sugery, thorough washing of leg pior to coming to surgery. We discussed the multiple potential risks of anesthesia including respiratory, cardiac and patient positioning issues. We discussed the multiple risks of surgery particularly wound infection, deep venous thrombosis(DVT), persistent swelling, pain and stiffness after surgery, as well as worsening of pre-existing arthritic symptoms. Patient has agreed to understanding of these risks and would like to proceed. As patient is still recovering from shoulder surgery, we will schedule knee scope for no sooner than 6 weeks from this time. Jun, Pain in left knee (ICD-10 - M25.562) Jun, Chondromalacia, left knee (ICD-10 - M94.262) Jun, Pre-op exam (ICD-10 - Z01.818) [employer] Other 01-09-2023 Evaluation note* Encounter Date Diagnosis Assessment Notes Treatment Notes Treatment Clinical Notes Jun, Obesity (ICD-10 - E66.9) Findings consistent with obesity. Patient understands that this increases risk of multiple comorbidities associated with weight gain especially if there is a genetic predisposition. Discussed the complexity behind obesity and its multifactorial causes including genetics, the biological changes that occur with processed foods as well as lack of physical activity. We will assess for underlying causes of abnormal weight gain including thyroid dysfunction, poor sleep, medications, diet, etc. Discussed importance of adopting a healthier lifestyle in order to decrease or eliminate risk of impending diseases associated with excessive weight. initial goal of modest weight loss approximately 3 to 5% can help to improve risk factors and some comorbidities. Our second goal of 10 to 15% weight loss can result in even more potentially disease modifying, remission or improved mortality benefits. Initial goals include incorporating plate method and additional 1-2 times per week. Patient to obtain fasting labs and we will review at follow-up visit. We discussed adding Victoza as patient is open to an injectable medication. Fallback would be metformin Strongly encouraged working with our mining consultant for weight loss goals and using it as a form of physical therapy. Patient is not to skip any meals and incorporate small items throughout the day Will refer for sleep study as patient has some strong indicators for sleep apnea. Jun, Depression (ICD-10 - F32.9) PHQ-9 is positive for mild depression with a score of 7 and treatment program. Patient indicates several days of little interest or pleasure in doing things, feeling down or depressed, falling asleep, feeling tired, poor appetite, feeling bad about herself and trouble concentrating on things.. Patient states mood is stable overall today and denies any significant mood swings or depressive thoughts. We would use extreme caution or avoid medications for weight loss including Qsymia, phentermine due to possibility of worsening depression. Discussed this with patient when evaluating for appropriate medication. Inform patient that Seroquel is a very weight positive medication and although at a lower dose could be contributing to weight gain. Encouraged to discuss with her provider if other alternatives have not been considered. It seems as though patient still having some difficulty sleeping despite this medication for which it was for. We will follow. Jun, Hypertension (ICD-10 - I10) Patient has history of hypertension. Blood pressure reading within normal limits today. Treat with low-salt diet, decreased processed and restaurant foods, healthy lifestyle changes and achieve long-term weight loss. Encouraged to monitor outside of the office setting. Encouraged to work with dietitian closely for both weight loss and hypertension focused diet. We discussed how just 5 to 10% modest weight loss can help improve blood pressure. Treat with weight loss and goal of decreasing or eliminating BP medications as appropriate. Jun, Complete tear of right rotator cuff, unspecified whether traumatic (ICD-10 - M75.121) Patient has had repair of her rotator cuff but this still limits her in some of her daily activities and ability to exercise. Strongly encourage working with mining consultant around these limitations. Jun, Primary osteoarthritis of both knees (ICD-10 - M17.0) Patient admits to arthritis pain pain likely exacerbated/seconda ry to increased weight. Treat with exercise incorporating low impact exercises or modifications as needed. Advised to that there are multiple different exercise programs available many of which can be done within the home that required little to no impact. Encouraged swimming as feasible. Slowly increase activity over time to reach goal of 30 minutes most days of the week. Encouraged to take advantage of mining consultant available at [facility] that can help work around limitations. Jun, Daytime sleepiness (ICD-10 - R40.0) Encouraged good sleep hygiene by going to bed at approximately the same time each night and similar waking hours each day, not eating too close to bedtime, avoid excessive fluids and eating shortly before bed, turning off blue light on phone/computers, silencing notifications, etc. Fatigue during the day could also be related to blood sugar spikes and subsequent crashes related to poor dietary habits of high glucose or high carbohydrate meals and snacks. Increase water intake. Jun, Carpal tunnel syndrome (ICD-10 - G56.00) Jun, Loud snoring (ICD-10 - R06.83) Patient admits to loud snoring in addition to some significant daytime fatigue and morning headaches. Patient understands that sleep apnea significantly increases risk of cardiac issues as well as hypertension, daytime fatigue and brain fog among others. Educated that CPAP compliance is of utmost importance to help prevent related comorbidities. Treat with weight loss. Patient open to sleep study. Jun, Asthma (ICD-10 - J45.909) Strongly encouraged against use of a vape pen due to her history of asthma and on regulation of substances being inhaled as well as known carcinogens. Patient unsure if it is THC or CBD component. Encouraged topical medication if at all possible. Jun, Back pain (ICD-10 - M54.9) [employer] Other 12-01-2022 Evaluation note* Encounter Date Diagnosis Assessment Notes Treatment Notes Treatment Clinical Notes May, Primary osteoarthritis of left knee (ICD-10 - M17.12) MRI images and findings review with patient. Extensive discussion about current condition and treatment options available. The patient is suffering from degenerative arthritis and meniscal injury involving the knee. We discussed the conservative treatment options which can be beneficial in relieving pain, including gentle non-impact motion exercise and non-steroidal anti-inflammatory medication. We discussed the use of occasional cortisone injections that can provide pain relief as well as hyaluronan lubricant injection. We performed a 2/1cc marcaine / kenalog cortisone injection into the knee joint under sterile technique. Patient tolerated the injection well without adverse reaction. If problems persist, we may need to consider surgical treatment. Knee scope discussed with patient May, Contusion of left knee, initial encounter (ICD-10 - S80.02XA) May, Complete tear of right rotator cuff, unspecified whether traumatic (ICD-10 - M75.121) May, Subacromial impingement of right shoulder (ICD-10 - M75.41) May, Pain in left knee (ICD-10 - M25.562) May, Other specified postprocedural states (ICD-10 - Z98.890) [employer] Other 10-17-2022 Evaluation note* Encounter Date Diagnosis Assessment Notes Treatment Notes Treatment Clinical Notes Mar, Right shoulder tendinitis (ICD-10 - M77.8) Mar, Complete tear of right rotator cuff, unspecified whether traumatic (ICD-10 - M75.121) Mar, Subacromial impingement of right shoulder (ICD-10 - M75.41) Mar, Other specified postprocedural states (ICD-10 - Z98.890) Xrays were reviewed with patient in detail. Patient instructed to continue use of sling. Instructed on gentle passive pendulum shoulder motion and active elbow and wrist exercise multiple times a day. Discussed limiting use of narcotic if possible. Discussed use of ice and heat for pain relief. Patient may allow incision to get wet in shower and steri strips will begin to fall off. [employer] Other 10-04-2022 Evaluation note* Encounter Date Diagnosis Assessment Notes Treatment Notes Treatment Clinical Notes Mar, Other specified postprocedural states (ICD-10 - Z98.890) [employer] Other 09-13-2022 Evaluation note* Encounter Date Diagnosis Assessment Notes Treatment Notes Treatment Clinical Notes Feb, Right shoulder tendinitis (ICD-10 - M77.8) Feb, Complete tear of right rotator cuff, unspecified whether traumatic (ICD-10 - M75.121) We will plan on arthroscopic rotator cuff repair. The patient has stated that they do not want to live in this condition any longer and would like to proceed with surgery. I feel that this is a reasonable option at this point and we may be able to improve function and decrease pain. We have discussed the process and procedure in detail including not eating or drinking 8 hrs prior to surgery, the need for general anesthesia and associated respiratory, cardiac, and patient position complications (such as nerve traction and compression). The benefit of regional block anesthesia and complications of arm numbness and neck pain. We discussed that pain and stifffness can be expected after surgery for months. The complications of infection, hardware pullout, cuff repair failure, terminal system operator pain and stiffness are well known problems that can require repeat surgeries. Patient is fully aware that this shoulder may never be the same. We discussed that our team will do everything we can to help achieve the best outcome. Feb, Subacromial impingement of right shoulder (ICD-10 - M75.41) Feb, Acute pain of right shoulder (ICD-10 - M25.511) Feb, Pre-operative examination (ICD-10 - Z01.818) [employer] Other 07-14-2022 Evaluation note* Encounter Date Diagnosis Assessment Notes Treatment Notes Treatment Clinical Notes Dec, Right shoulder tendinitis (ICD-10 - M77.8) Extensive discussion about current condition and treatment options available. This appears to be pain secondary to subacromial impingement/ rotator cuff tendonitis. We discussed and demonstrated gentle motion exercise and rotator cuff strengthening exercise. Discussed the use of non-steroidal anti-inflammatory medication. We will provide an order for formal physical therapy. A 2/1cc marcaine / kenalog cortisone injection was performed into the subacromial space under sterile technique. Patient tolerated the injection well with no adverse reaction. If problems persist, we will consider MRI. Dec, Subacromial impingement of right shoulder (ICD-10 - M75.41) Dec, Acute pain of right shoulder (ICD-10 - M25.511) [employer] Other 09-16-2021 NoteHNO ID: [id number] Author: Matthew Velez, PhD Service: ? Author Type: Psychologist Type: Progress Notes Filed: 03/12/2021 1:31 PM Note Text: [facility] HNO ID: [id number] Author: Tosin Huffman RD Service: ? Author Type: Registered Dietitian Type: Progress Notes Filed: 02/20/2021 9:51 AM Note Text: No show for virtual nutrition appointment. Telephone call placed at 9:46 AM to [phone]. No voicemail box is set up for this number to leave a message. Unable to contact patient. Left My Chart message with information to reschedule appointment. [facility]man [facility] History of Present illness Narrative* Ligia Fisher RN - 02/18/2021 3:44 PM EDT Discharge instructions given to pt and daughter.Discharge Criteria Inpatients must meet Criteria 1 through 7. All other patients are either YES or N/A. If a NO is chosen then Anesthesia or Surgeon must be notified. 1. Minimum 30 minutes after last dose of sedative medication, minimum 120 minutes after last dose of reversal agent. Yes 2. Systolic BP stable within 20 mmHg for 30 minutes & systolic BP between 90 & 180 or within 10 mmHg of baseline. Yes 3. Pulse between 60 and 100 or within 10 bpm of baseline. Yes 4. Spontaneous respiratory rate >/= 10 per minute. Yes 5. SaO2 >/= 95 or >/= baseline. Yes 6. Able to cough and swallow or return to baseline function. Yes 7. Alert and oriented or return to baseline mental status. Yes 8. Demonstrates controlled, coordinated movements, ambulates with steady gait, or return to baseline activity function. Yes 9. Minimal or no pain or nausea, or at a level tolerable and acceptable to patient. Yes 10. Takes and retains oral fluids as allowed. Yes 11. Procedural / perioperative site stable. Minimal or no bleeding. Yes 12. If GI endoscopy procedure, minimal or no abdominal distention or passing flatus. N/A 13. Written discharge instructions and emergency telephone number provided. Yes 14. Accompanied by a responsible adult. Yes * Kavita Gibson RN - 02/13/2021 3:09 PM EDT Patient instructed on the pre-operative, intra-operative, and post-operative process. Patient's surgery arrival time to the hospital and surgery start time confirmed for the day of surgery. Patient instructed on NPO status. Medication instructions reviewed with patient. Pre operative instruction sheet reviewed and given to patient in [facility] skin prep instructions reviewed with the patient via telephone. Pt states she still has all her surgery instructions and knows to stop her adipex for at least 4 days. Getting covid tested in [place]. covid test sheet faxed to [place]. documented [facility] this [facility] Phone: 1(289) 691-866208-25-2021 Hospital Discharge instructions* Instructions* Cleopatra Payan MD - 02/18/2021 SAME DAY SURGERY INSTRUCTIONS 1. Do not drive or operate hazardous machinery. 2. Do not make important personal or business decisions for 24 hours. 3. Do not drink alcoholic beverages. 4. Do not smoke tobacco products. 5. Eat light foods initially (i.e., Jell-O, soups, etc) and drink plenty of fluids. 6. If your bandages become soaked with a bright red blood, place another dressing pad over your bandages. (Do not remove original bandage.) Call your surgeon for further instructions. A small amount of bright red blood is to be expected. 7. Limit your activities for 48 hours. Do not engage in heavy work until your surgeon gives you permission. 8. Report the following signs or any questions regarding your physical condition to your surgeon immediately: Excessive swelling of, or around, the wound area Redness Temperature of 101 (degrees F) or above Excessive pain 9. Call your surgeon, , for any questions regarding your surgery. Call [phone] forurgent questions after 5PM until 8AM 10. Call for an appointment to see your surgeon in 2 weeks. SPECIAL INSTRUCTIONS AND MEDICATIONS 1. No firm gripping, pushing, pulling, lifting more than several pounds for at least 2 weeks. 2. Move fingers and wrist to improve circulation. Work on restoring full finger range of motion. Atyour 2 week follow up appointment you should be able to make a complete fist. 3. Use prescribed pain pill as directed by the doctor. You may use aspirin or Tylenol if you prefer. 4. Keep your dressing on an dry unless instructed differently by your physician. 5. Use ice as instructed. 6. Remove operative bandages: 02/20. Place a band aid over incision or cover with new gauze and jayson wrap 7. Keep incisions/dressings dry. If they happen to get wet remove wet dressing and place a new dry dressing. Cleopatra Payan MD 02/18/2021 2:27 PM documented [facility] this [facility] Phone: 1(352) 800-172708-20-2021 History of Present illness Narrative* Julian Xiong APRN - CORPORATE WEBMASTER - 02/13/2021 12:14 PM EDT MD. Payan notified that the patient had taken her adipex even though she was instructed not to. The patient agreed to proceed with the procedure with just light sedation, but due to the patients history of anxiety and the increased risk for hypotension MD. Payan preferred have the patient reschedule. * Kavita Gibson RN - 02/02/2021 4:04 PM EDT Patient instructed on the pre-operative, intra-operative, and post-operative process. Patient's surgery arrival time to the hospital and surgery start time confirmed for the day of surgery. Patient instructed on NPO status. Medication instructions reviewed with patient. Pre operative instruction sheet reviewed and given to patient in PAT. [facility] skin prep instructions reviewed with the patient via telephone. Pt instructed to stop taking adipex for 1 week per Yifan Bear CRNA and all aspirin products andto only take zoloft the morning of surgery with a sip of water only. Pt is getting covid test at [place]. documented [facility] this [facility] Phone: 1([phone]) 900-891307-14-2021 NoteHNO ID: [id number] Author: Matthew Velez, PhD Service: ? Author Type: Psychologist Type: Progress Notes Filed: 01/10/2021 7:55 PM Note Text: [facility] EVALUATION DATE OF SERVICE: January 07, 2021 TIME OF SERVICE: 8:00 am COST CENTER: [facility] CPT CODE: [id number] Virtual PSYCH DIAGNOSTIC EVAL BILLING CODE: ENDO PSYL YUMI Velez SESSION #: 1 Due to the federal emergency declaration and the need for ongoing mental health services, the following visit was completed virtually and informed consent obtained orally to reduce the risk of COVID-19 exposure. Oral consent to services related to virtual visits was obtained and information was sent via [employer] [facility] [facility] [employer] or read to patient if MyChart not available. IDENTIFYING INFORMATION Ms. Dasha Mejia is a 50 year old female. She was referred by Dr. Dacosta. Ms. Mejia is seeking gastric bypass for morbid obesity. Pt's insurance requires 12 months of medically supervised weight loss prior to surgery. COLLATERAL PARTIES PRESENT: none. MOTIVATION FOR SURGERY / UNDERSTANDING OF PROCEDURE / EXPECTATIONS: Ms. Mejia notes she is motivated for surgery by HTN, feeling bad about self (depressed), social anxiety related to weight. The patient has a fair/good understanding of the surgery, risks, and benefits. She has not talked with other people who have undergone the procedure. Specific areas of understanding that should be addressed include n/a. Past support group attendance no Online support group or forums no The patient expects to lose 65-70 pounds lbs. following surgery over 12-18 months. Educated patient regarding expected weight loss after surgical procedure and timeline of weight loss/surgery recovery. CAPACITY TO CONSENT: Ms. Mejia evidences the following concerns regarding capacity to consent: none noted. MEDICAL PROBLEMS There is no problem list on file for this patient. HTN Asthma Past surgeries? Yes No past surgical history on file. History of psychological complications post-surgery? No MEDICATIONS Current Outpatient Medications Medication Sig - polyethylene glycol 3350 (MIRALAX, GLYCOLAX) 17 gram/dose powder Use as directed for Miralax / Gatorade Bowel Prep Kit - Gatorade Sports Drink Use as directed for Miralax / Gatorade Bowel Prep Kit - Bisacodyl (DULCOLAX) 5 mg tab Use as directed for Miralax / Gatorade Bowel Prep Kit No current facility-administered medications for this visit. Lisinopril Advair Zoloft-Depression/Anxiety Wellbutrin-Depression/Anxiety prescriped by PCP Dr. Sia Bourne Trazodone-Sleep Seroquel-Sleep Medications were reviewed with patient. yes ALLERGIES ALLERGIES Not on File EATING/WEIGHT HISTORY: Ms. Mejia was average weight as a child. Her weight at age 17 was 125 lbs. The patient reports the following factors as contributing to weight gain: inactivity, and marriage, and eating when depressed. Pt was with ex from [age] years old; stressful marriage and weight gain.. The patient's current weight is 218 lbs. Her BMI is Body mass index is 38.62 kg/m?.. 63 inches; 218 pounds Last year patient had lost 30 pounds to 185 and then during COVID regained all of the weight plus a bit more. Pt accomplished this by decreasing carbs and walking daily. She also drank a lot of water instead of diet Mountain Dew. Pt decreased breads/sweets. Pt did WW 7 years ago and lost a modest amount of weight -7 years ago. Pt is currently taking Adipex x 2 months and has lost about 16 pounds. She has tried Adipex intermittently in the past with benefit. The most pt has lost is 30 lbs using diet (low carb) and walking 5 days per week or more 4-6 miles. The patient denies a history of laxative/diuretic use. The patient denies a history of vomiting to lose weight. The patient denies a history of an eating disorder. She has not had treatment for eating disorders in the past. The patient describes her eating pattern as follows: AM- fuentes and eggs (2 eggs, 3 pieces of fuentes that she shares with dog), occasional cypriot muffin Snack protein shake Lunch ham and cheese Dinner: Chicken, hard boiled egg, cheese Snack- coffee cup of ice cream Other snacks - smoked almonds, peanut butter and jelly crackers, apples, meat and cheese, Ritz crackers, yogurt covered fruit. Prior to 2 months ago she was eating more sweets Dog is emotional support animal Rare dining out, Diet Mountain Dew sometimes, water and Propel packets BINGE EATING ASSESSMENT: A. Recurrent episodes of binge eating. An episode is characterized by: 1. Eating a larger amount of food than normal during a short period of time (within any two hour period): No 2. Lack of control over eating during the binge episode (i.e. the feeling that one cannot stop eating): No B. Binge eating episodes are associated with three or more of the (more content not included)...[facility] NoteHNO ID: [id number] Author: Surendra Dacosta MD Service: ? Author Type: Physician Type: Progress Notes Filed: 01/05/2021 3:00 PM Note Text: Assessment NEW BARIATRIC PATIENT PATIENT NAME: Dasha Mejia REASON FOR CONSULT: Morbid Obesity REQUESTING PHYSICIAN: Self DATE of SERVICE: 01/05/2021 TIME of SERVICE: 2:51 PM PCP: Sia Thompson CNP CC: Morbid Obesity HPI: Ms. Mejia is a 50 year old female who is referred for evaluation for Bariatric surgery. Patient does not have any specific complaints today. Patient's obesity related chronic medical conditions include: Diabetes: No Hypertension: Yes Hyperlipedemia:No OA:No QUEENIE: No DVT/PE:No Gastroesophageal reflux: occasional EGD: No Height/wt from 02/26/2020 in care everywhere height 5' 4 (1.626 m), weight 189 lb (85.7 kg), Patient is inclined towards: bypass Patient's goal is better health and improved joint pain. History of abdominal surgeries: appendectomy, tubal ligation PAST MEDICAL HISTORY: Hypertension asthma PAST SURGICAL HISTORY: No past surgical history on file. SOCIAL HISTORY: Social History Tobacco Use - Smoking status: Not on file Substance Use Topics - Alcohol use: Not on file - Drug use: Not on file ALLERGIES: ALLERGIES Not on File FAMILY HISTORY: No family history on file. MEDICATIONS: Prior to Admission Medications: polyethylene glycol 3350 (MIRALAX, GLYCOLAX) 17 gram/dose powder Use as directed for Miralax / Gatorade Bowel Prep Kit Gatorade Sports Drink Use as directed for Miralax / Gatorade Bowel Prep Kit Bisacodyl (DULCOLAX) 5 mg tab Use as directed for Miralax / Gatorade Bowel Prep Kit No current facility-administered medications for this visit. FAMILY HISTORY: No family history on file. COMPLETE REVIEW OF SYSTEMS Constitutional--Negative for fevers, chills, fatigue. Cardiovascular--Negative for orthopnea, PND Gastrointestinal--See HPI Pulmonary--Negative for intermittent dyspnea cough or hemoptysis : No history of dysuria, frequency or incontinence A complete review of systems was otherwise negative PHYSICAL EXAMINATION: There were no vitals taken for this visit. General appearance: Well appearing, alert, in no acute distress, well-hydrated, well nourished. Psych: Appropriate affect, alert and oriented to person, place and time IMPRESSION Morbid Obesity PLAN: Patient is a very pleasant 50 year old with morbid obesity, patient of Sia Thompson CNP. Patient is here today seeking information regarding weight loss. Patients chronic medical conditions include hypertension, occasional gastroesophageal reflux. I have discussed in detail patients options including sleeve gastrectomy and Marisol-en-Y gastric bypass. Based on patient's BMI and medical co morbidities patient would be a candidate for Marisol-en-Y gastric bypass. Surgically Cleared with completion of the below: 1) Pre op EGD needed: Yes, and colonoscopy as she is over 50 and has not had one. 2) Current height weight to assure she meets NIH criteria Patient will continue through the program and will come back to me prior to planned surgery for discussion regarding options and pre op teaching. Surendra Dacosta, [facility]06-18-2021 History of Present illness Narrative* Ligia Fisher RN - 12/12/2020 3:46 PM EDT Discharge instructions given to pt and visitors.Discharge Criteria Inpatients must meet Criteria 1 through 7. All other patients are either YES or N/A. If a NO is chosen then Anesthesia or Surgeon must be notified. 1. Minimum 30 minutes after last dose of sedative medication, minimum 120 minutes after last dose of reversal agent. Yes 2. Systolic BP stable within 20 mmHg for 30 minutes & systolic BP between 90 & 180 or within 10 mmHg of baseline. Yes 3. Pulse between 60 and 100 or within 10 bpm of baseline. Yes 4. Spontaneous respiratory rate >/= 10 per minute. Yes 5. SaO2 >/= 95 or >/= baseline. Yes 6. Able to cough and swallow or return to baseline function. Yes 7. Alert and oriented or return to baseline mental status. Yes 8. Demonstrates controlled, coordinated movements, ambulates with steady gait, or return to baseline activity function. Yes 9. Minimal or no pain or nausea, or at a level tolerable and acceptable to patient. Yes 10. Takes and retains oral fluids as allowed. Yes 11. Procedural / perioperative site stable. Minimal or no bleeding. Yes 12. If GI endoscopy procedure, minimal or no abdominal distention or passing flatus. N/A 13. Written discharge instructions and emergency telephone number provided. Yes 14. Accompanied by a responsible adult. Yes * Ligia Fisher RN - 12/12/2020 3:20 PM EDT 1510 able to move right fingers on command. * Regina Woods RN - 12/08/2020 10:04 AM EDT Patient instructed on the pre-operative, intra-operative, and post-operative process. Patient instructed on NPO status. Medication instructions and Pre operative instruction sheet reviewed over the phone. Instructed pt to stop taking ibuprofen as of today and to take zoloft with a kira I of waterand use her advair inhaler prior to arriving to the hospital the day of surgery. [facility] documented in this [facility] Phone: 1(858) 251-220706-18-2021 Hospital Discharge instructions* Instructions* Josephine Márquez APRN - MACHINE CARTON MARKER - 12/12/2020 SAME DAY SURGERY INSTRUCTIONS 1. Do not drive or operate hazardous machinery. 2. Do not make important personal or business decisions for 24 hours. 3. Do not drink alcoholic beverages. 4. Do not smoke tobacco products. 5. Eat light foods initially (i.e., Jell-O, soups, etc) and drink plenty of fluids. 6. If your bandages become soaked with a bright red blood, place another dressing pad over your bandages. (Do not remove original bandage.) Call your surgeon for further instructions. A small amount of bright red blood is to be expected. 7. Limit your activities for 48 hours. Do not engage in heavy work until your surgeon gives you permission. 8. Report the following signs or any questions regarding your physical condition to your surgeon immediately: Excessive swelling of, or around, the wound area Redness Temperature of 101 (degrees F) or above Excessive pain 9. Call your surgeon, , for any questions regarding your surgery. Call [phone] forurgent questions after 5PM until 8AM 10. Call for an appointment to see your surgeon in 2 weeks. SPECIAL INSTRUCTIONS AND MEDICATIONS 1. No firm gripping, pushing, pulling, lifting more than several pounds for at least 2 weeks. 2. Move fingers and wrist to improve circulation. Work on restoring full finger range of motion. Atyour 2 week follow up appointment you should be able to make a complete fist. 3. Use prescribed pain pill as directed by the doctor. You may use aspirin or Tylenol if you prefer. 4. Keep your dressing on an dry unless instructed differently by your physician. 5. Use ice as instructed. 6. Remove operative bandages:2 days post-op. Place a band aid over incision or cover with new gauzeand jayson wrap 7. Keep incisions/dressings dry. If they happen to get wet remove wet dressing and place a new dry dressing. Cleopatra Payan MD 12/12/2020 2:27 PM documented in this [facility] Work Phone: evaluation + Plan note No data available for this section [facility] Evaluation + Plan note Future Appointments Appointment Date:10/19/2022 09:00:00 AM Scheduled Provider:Sia Thompson NP Location:[facility] Appointment Type:FM [facility] Evaluation + Plan note Future Appointments Appointment Date:10/21/2022 10:00:00 AM Scheduled Provider: Location:[facility] Appointment Type:PT 45 (FT) Appointment Date:10/26/2022 09:45:00 AM Scheduled Provider: Location:[facility] Appointment Type:PT 45 (FT) Appointment Date:10/28/2022 10:00:00 AM Scheduled Provider: Location:[facility] Physical Tx Appointment Type:PT 45 (FT) Appointment Date:11/02/2022 08:45:00 AM Scheduled Provider: Location:[facility] Appointment Type:PT 45 (FT) Appointment Date:11/04/2022 09:00:00 AM Scheduled Provider: Location:[facility] Appointment Type:PT 45 (FT) Appointment Date:11/08/2022 09:15:00 AM Scheduled Provider: Location:[facility] Appointment Type:PT Re-Eval 45 (FT) [facility] Evaluation + Plan note Future Appointments Appointment Date:05/02/2023 09:30:00 AM Scheduled Provider: Location:[facility] Appointment Type:FM Medicare Wellness Welcome Appointment Date:05/02/2023 10:40:00 AM Scheduled Provider:MELANY SCHUMACHER CNP Location:[facility] Appointment Type:FM Open [facility] evaluation + Plan note Future Appointments Appointment Date:05/30/2023 08:20:00 AM Scheduled Provider:MELANY SCHUMACHER CNP Location:[facility] Appointment Type:FM Open Appointment Date:05/04/2024 09:30:00 AM Scheduled Provider: Location:[facility] Appointment Type:FM Medicare Wellness Subsequent Future Scheduled Tests Laboratory* HgbA1c 05/02/23 [facility] evaluation + Plan note Future Appointments Appointment Date:06/21/2023 09:00:00 AM Scheduled Provider:MELANY SCHUMACHER CNP Location:[facility] Appointment Type: Open Appointment Date:05/04/2024 09:30:00 AM Scheduled Provider: Location:[facility] Appointment Type:FM Medicare Wellness Subsequent Future Scheduled Tests Laboratory* HgbA1c 05/02/23 [facility] evaluation + Plan note Future Appointments Appointment Date:07/19/2023 08:20:00 AM Scheduled Provider:MELANY SCHUMACHER CNP Location:[facility] Appointment Type: Open Appointment Date:05/04/2024 09:30:00 AM Scheduled Provider: Location:[facility] Appointment Type:FM Medicare Wellness Subsequent Future Scheduled Tests Laboratory* HgbA1c 05/02/23 [facility] evaluation + Plan note Future Appointments Appointment Date:11/09/2023 08:00:00 AM Scheduled Provider:MEL[facility] SCHUMACHER CNP [facility]: [facility] Appointment Date:10/09/2024 08:00:00 AM Scheduled Provider: Location:[facility] Appointment Type:FM Medicare Wellness Subsequent Future Scheduled Tests Laboratory* [facility]c [facility]ments Appointment Date:01/04/2024 08:00:00 AM Scheduled Provider:MELANY SCHUMACHER CNP Location:[facility] Appointment Type:FM Open Appointment Date:10/09/2024 08:00:00 AM Scheduled Provider: Location:[facility] Appointment Type:FM Medicare Wellness Subsequent Future Scheduled Tests Laboratory* HgbA1c [facility]02[facility]23 [facility] Diagnosis Post-operative pain- Primary Other acute postoperative pain documented in this encounter [facility] Phone: [email or web address] note* Diagnosis Acute pain of right knee documented in this encounter [facility] Phone: [email or web address] note* Diagnosis Carpal tunnel syndrome of left wrist- Primary Carpal tunnel syndrome documented in this encounter [facility] Phone: [email or web address] note* Diagnosis Acute pain of right knee documented in this encounter [facility] Phone: [email or web address] note* Diagnosis Left knee pain, unspecified chronicity documented in this encounter [facility] Phone: [email or web address] note* Diagnosis Right shoulder pain, unspecified chronicity documented in this encounter [facility] Phone: [email or web address] note* Diagnosis Postcoital bleeding Women's annual routine gynecological examination documented in this encounter [facility] Phone: [email or web address] noteNo assessment information available [facility] Work Phone: Evaluation noteNo InformationNort [employer] Other Hisbnvn general Narrative - Reported* Type Description Date Medical History ANXIETY Medical History HYPERTENSION Medical History MODERATE DEPRESSIVE DISORDER Medical History SLEEP DIFFICULTIES Medical History THICKENED ENDOMETRIUM Medical History asthma Surgical History tubal ligation 1993 Surgical History hand surgery pin placed 2006 Surgical History tonsillectomy Surgical History appendectomy Surgical History TEAR OF BICEPS TENDON 11/24/2018 Surgical History ROTATOR JENNIFER REPAIR Hospitalization History see above [employer] Other [facility] general Narrative - Reported* Type Description Date Medical History ANXIETY Medical History HYPERTENSION Medical History MODERATE DEPRESSIVE DISORDER Medical History SLEEP DIFFICULTIES Medical History THICKENED ENDOMETRIUM Medical History Asthma Medical History Arthritis of bilateral knees Medical History Chronic low back pain Medical History Bilateral rotator cuff surgery Medical History Ruptured bicep tendon of bilater al arms Medical History Ruptured bicep tendon surgery of left arm Medical History Carpal Tunnel in bilateral hands Medical History Torn meniscus of right knee Surgical History tubal ligation 1993 Surgical History hand surgery pin placed 2006 Surgical History tonsillectomy Surgical History appendectomy Surgical History TEAR OF BICEPS TENDON 11/24/2018 Surgical History ROTATOR JENNIFER REPAIR Surgical History Right knee meniscus removal Surgical History D&C Surgical History Carpal tunnel in bilateral hand s Surgical History [place] teeth removal Surgical History Right shoulder arthr oscopy with supraspinatus rotator cuff repair[using one 5.5 triple loaded Arthrex metallic corkscrew medial row, one 4.7 swivel lock lateral row]Subacromial decompression/Distal clavicle resection/Coracoid plasty 03/31/22 Surgical History Lateral release of left knee 07/19 Hospitalization History see above [employer] Other History general Narrative - Reported* Type Description Date Medical History ANXIETY Medical History HYPERTENSION Medical History MODERATE DEPRESSIVE DISORDER Medical History SLEEP DIFFICULTIES Medical History THICKENED ENDOMETRIUM Medical History Asthma Medical History Arthritis of bilateral knees Medical History Chronic low back pain Medical History Bilateral rotator cuff surgery Medical History Ruptured bicep tendon of bilater al arms Medical History Ruptured bicep tendon surgery of left arm Medical History Carpal Tunnel in bilateral hands Medical History Torn meniscus of right knee Surgical History tubal ligation 1993 Surgical History hand surgery pin placed 2006 Surgical History tonsillectomy Surgical History appendectomy Surgical History TEAR OF BICEPS TENDON 11/24/2018 Surgical History ROTATOR JENNIFER REPAIR Surgical History Right knee meniscus removal Surgical History D&C Surgical History Carpal tunnel in bilateral hand s Surgical History [place] teeth removal Surgical History Right shoulder arthr oscopy with supraspinatus rotator cuff repair 03/31/22 Surgical History Lateral release of left knee 07/19 Hospitalization History see above [employer] Other History general Narrative - ReportedNort [employer] Other Hospital Discharge instructions No data available for this section [facility] Discharge instructions Additional Instructions HERE ARE SOME IMPORTANT POST-OPERATIVE INSTRUCTIONS FOR YOU: Rotator Cuff Repair/Labrum Repair ACTIVITY 1. Begin gentle shoulder pendulum exercises today. 2. Progress to active elbow/wrist motion as tolerated. 3. Utilize your sling during activity. It is ok to remove sling when sitting. 4. You may need to sleep sitting up to prevent pain. 5. Ice shoulder for 20 minutes every hour as tolerated. DRESSING 1. OK to remove dressings in 24 hours. Apply Band-Aids, and the OK to shower. 2. If there are tape strips over the incision line, do not remove them. MEDICATION 1. Take pain medications as directed every 4-6 hours as needed for pain. 2. Progressively decrease pain medication use as soon as possible. POST-OPERATIVE APPOINTMENT: 1. Return in ONE week for re-evaluation. 2. Call [phone] for further questions.[facility] Work Phone: Hospital Discharge instructions Additional Instructions DISCHARGE INSTRUCTIONS FOR KNEE ARTHROSCOPY The following instructions must be followed very closely: 1. If you need pain pills, start before pain becomes intense. Antibiotics and pain pills are frequently less upsetting to your stomach if you take them with food such as crackers or bread. 2. If you are having excessive or persistent pain in, swelling, bleeding, nausea, vomiting, or any other problems, you should first call your surgeon for advice. If you are unable to contact your surgeon, seek help from a hospital emergency room. If you are given drugs to make you drowsy and/or pain medication, follow these instructions: 1. You should spend the remainder of the day and evening resting. 2. You should not attempt to walk, including going to the bathroom, without assistance. You may be lightheaded from the medications you received. 3. Eat light today to avoid nausea. You should be able to return to normal diet 24-36 hours after surgery. 4. For the next 24 hours he should not consume alcohol, attempt to drive, use any power tools, site important documents or make important personal or business decisions. After that do so only if you feel perfectly normal and alert. 5. Follow carefully any verbal or written instructions your surgeon may have given you. Surgeon's written instructions: It's very important to take aspirin after surgery if your surgeon has directed you to do so. This helps prevent post-op blood clots. If you are unsure about an aspirin regimen, contact your surgeon as soon as possible. 1. Weightbearing as tolerated, use crutches as needed, begin bending your knee. 2. Take pain medications as directed. 3. Ice bag to knee for 24 hours. 4. Elevate leg above the level of the heart to reduce swelling and pain. 5. Remove the dressing in 24 hours. Apply Band-Aids, and then you may shower. If there are tape strips over the incision line, do not remove them. 6. Call the office to confirm your postoperative appointment to see the surgeon in 1 week. 7. If you are having excessive or persistent pain, swelling, fever, yellow-green foul smelling drainage or bleeding from the incision, excessive redness of incision, nausea, vomiting, or any other problems, you should first call your surgeon at [phone] for advice. If your are unable to contact your surgeon, seek help from a hospital emergency room.[facility] Work Phone: Progress note No data available for this section [facility] Reason for referral (narrative) Referred by: Donna CARDENAS, Sia Garland [facility] Reason for Referral Status Reason Specialty Diagnoses / Procedures Referred By Contact Referred To Contact Pending Review Radiology Diagnoses Labral tear of long head of biceps tendon, left, initial encounter Procedures MRI SHOULDER LEFT WO CONTRAST Rosalio Comer PA-C [address] [place] [address] Status Reason Specialty Diagnoses / Procedures Referre d By Contact Referred To Contact Closed Radiology Diagnoses Acute pain of right knee Procedures MRI KNEE RIGHT WO CONTRAST Cleopatra Payan MD [address] [place] [address] Specialty Diagnoses / Procedures Referred By Mela quintana Referred To Contact Radiology Diagnoses Left knee pain, unspecified chronicity Procedures MRI KNEE LEFT WO CONTRAST Josephine Márquez, PORTABLE GRINDING MACHINE OPERATOR - MACHINE CARTON MARKER [address] [place] [address] Referral ID Status Reason Start Date Expiration Date Visits Re quested Visits Authorized [id number] Closed 05/06/2021 06/04/2021 1 1 Reason Highly suspect QUEENIE. Please evaluate and treat. Thanks! Diagnosis 1 Obesity (E66.9) Diagnosis 2 Depression (F32.9) Diagnosis 3 Hypertension (I10) Diagnosis 4 Daytime sleepiness ( R40.0) Diagnosis 5 Loud snoring (R06.83 ) Referral Organization [facility] Referring Provider First Name Hannah Referring Provider Last Name Leslie Referring Provider Specialty Nurse Pract akash Referred Organization [facility] Referred Address [address] [place],[address] Referred Provider Specialty Sleep Medici ne Referral Priority Routine General Notes Katelynn Gross 2022 02:08:43 PM >Faxed referral with attachments to Sleep Lab to schedule pt. Katelynn Gross 07/28/2022 11:56:33 AM > Per Manda in Central Scheduling, pt has not been contacted yet to schedule. They will call pt to schedule soon. Katelynn Gross 08/04/2022 01:37:04 PM >See 08/02 TE. Katelynn Gross 08/19/2022 07:57:45 AM >Per Central Scheduling, pt is scheduled for initial consult on 09/16. Assessments Diagnosis Labral tear of long head of biceps tendon, left, initial encounter Diagnosis Women's annual routine gynecological examination Diagnosis Endometrial thickening on ultrasound Advance Directives No Advanced Directives Records FoundDocuments on File Type Date Recorded Patient Supervisor Picking Crew Expl anation Advance Directives and Living Will Power of Training Officer Documents on File Type Date Recorded Patient Supervisor Picking Crew Expl anation Advance Directives and Living Will Power of Training Officer Documents on File Type Date Recorded Patient Supervisor Picking Crew Expl anation ACP-Advance Directive ACP-Power of Training Officer Latest Code Status on File Code Status Date Activated Date Inactivated Comments Full Code 07/18/2020 9:40 AM 07/18/2020 4:19 PM Documents on File Type Date Recorded Patient Supervisor Picking Crew Expl anation ACP-Advance Directive ACP-Power of Training Officer Latest Code Status on File Code Status Date Activated Date Inactivated Comments Full Code 07/18/2020 9:40 AM 07/18/2020 4:19 PM Latest Code Status on File Code Status Date Activated Date Inactivated Comments Full Code 04/03/2021 9:58 AM 04/03/2021 4:02 PM Full Code 07/18/2020 9:40 AM 07/18/2020 4:19 PM Latest Code Status on File Code Status Date Activated Date Inactivated Comments Full Code 04/03/2021 9:58 AM 04/03/2021 4:02 PM Full Code 07/18/2020 9:40 AM 07/18/2020 4:19 PM Advance Directive Response Recorded Date/ Time Advance Directives No September 15 12:01pm Advance Directive Response Recorded Date/ Time Advance Directives No September 15 11:01am Summary Purpose Family History No Family History Records Found Relationship Condition Age at Onset Recorded Date/T lance sister Fibromyalgia Unknown sister Diabetes mellitus Unknown father Parkinson's disease Unknown Alzheimer's disease Unknown Not Specified Hypertension Unknown Asthma Unknown Chronic obstructive pulmonary disease Unk nown Relationship Condition Age at Onset Recorded Date/T lance sister Fibromyalgia Unknown sister Diabetes mellitus Unknown father Alzheimer's disease Unknown Parkinson's disease Unknown Not Specified Chronic obstructive pulmonary disease Un known Hypertension Unknown Asthma Unknown Dementia Unknown Chief Complaint and Reason for Visit Chief Complaint M25.511 r shoulder M24.811 Chief Complaint M25.511 r shoulder M24.811 Right Shoulder Pain Chief Complaint M25.511 r shoulder M24.811 Right Shoulder Pain Right Shoulder Pain Chief Complaint M25.511 r shoulder M24.811 Right Shoulder Pain Right Shoulder Pain Right Shoulder Pain Chief Complaint M24.811 Right Shoulder Pain Right Shoulder Pain Right Shoulder Pain r shoulder scope cuff repair M77.8 Chief Complaint M25.561 M25.562 M23.92 Obesity r shoulder scope cuff repair Chief Complaint M23.92 r shoulder scope cuff repair Obesity pain Chief Complaint r shoulder scope cuf f repair Obesity pain pain Chief Complaint Obesity pain pain Left Knee Scope Post -Op Chief Complaint M94.262 Additional Source Comments Reason for Visit (unrecogniz ed section and content) Status Reason Specialty Diagnoses / Procedures Referre d By Contact Referred To Contact Diagnoses Strain of muscle, fascia and tendon of long head of biceps, left arm, initial encounter Procedures HC MRI-UPPER EXT JNT WO CONT [facility] Status Reason Specialty Diagnoses / Procedures Referre d By Contact Referred To Contact Diagnoses Right carpal tunnel syndrome RIGHT CARPAL TUNNEL SYNDROME Procedures [place] WRIST ARTHROSCOP,RELEASE XVERS LIG CARPAL TUNNEL RELEASE ENDOSCOPIC Cleopatra Payan MD [address] [place] [address] [facility] Status Reason Specialty Diagnoses / Procedures Referre d By Contact Referred To Contact Diagnoses Left carpal tunnel syndrome LEFT CARPAL TUNNEL SYNDROME Procedures [place] WRIST ARTHROSCOP,RELEASE XVERS LIG CARPAL TUNNEL RELEASE ENDOSCOPIC Cleopatra Payan MD [address] [place] [address] [facility] Status Reason Specialty Diagnoses / Procedures Referre d By Contact Referred To Contact Diagnoses Carpal tunnel syndrome LEFT CARPAL TUNNEL SYNDROME Procedures [place] WRIST ARTHROSCOP,RELEASE XVERS LIG CARPAL TUNNEL RELEASE ENDOSCOPIC Cleopatra Payan MD [address] [place] [address] [facility] Status Reason Specialty Diagnoses / Procedures Referre d By Contact Referred To Contact Closed Radiology Diagnoses Acute pain of right knee Procedures MRI KNEE RIGHT WO CONTRAST Cleopatra Payan MD [address] [place] [address] Specialty Diagnoses / Procedures Referred By Contac t Referred To Contact Radiology Diagnoses Left knee pain, unspecified chronicity Procedures MRI KNEE LEFT WO CONTRAST Josephine Márquez, PORTABLE GRINDING MACHINE OPERATOR - MACHINE CARTON MARKER [address] [place] [address] Referral ID Status Reason Start Date Expiration Date Visits Re quested Visits Authorized [id number] Closed 05/06/2021 06/04/2021 1 1 Ordered Prescriptions (unrec ognized section and content) Prescription Sig Dispensed Refills Start Date End Da te HYDROcodone-acetaminophe n (NORCO) 5-325 MG per tabletIndications:Post-o perative pain Take 1 tablet by mouth every 4-6 hours as needed for Pain for up to 3 days. Intended supply: 3 days. Take lowest dose possible to manage pain 10 tablet 0 12/12/2020 12/15/2020 Prescription Sig Dispensed Refills Start Date End Da te HYDROcodone-acetaminophen (NORCO) 5-325 MG per tabletIndications:Carpal tunnel syndrome of left wrist Take 1 tablet by mouth every 6 hours as needed for Pain for up to 3 days. 1-2 tabs by mouth every 4-6 hours as needed for pain. 10 tablet 0 02/18/2021 02/21/2021 Scheduled Active and Recently Administ ered Medications (unrecognized section and content) Medication Order 12/10/2020 12/11/2020 12/12/2020 ceFAZolin (ANCEF) 2000 mg in dextrose 5 % 100 mL IVPB (COMPLETED) 2,000 mg, Intravenous, ONCE, 1 dose, On Tue12/12/20 at 1245, Pre-op (day of surgery) 1428 (New Bag - Prov ider: Modesta Ferrer RN)1458 (Due: Stopped - Provider: Modesta Ferrer RN) Continuous Medication Order 12/10/2020 12/11/2020 12/12/2020 lactated ringers infusion Intravenous, at 100 mL/hr, CONTINUOUS, Starting on Tue12/12/20 at 1245, Pre-op (day of surgery) 1308 (New Bag - Prov ider: Colette Caballero RN)1455 (Stopped - Provider: Francie Lane APRN - CORPORATE WEBMASTER)1530 (Stopped - Provider: Ligia Fisher RN) PRN Medication Order 12/10/2020 12/11/2020 12/12/2020 bupivacaine (PF) (MARCAINE) 0.5 % injection (CANCELED) PRN, Starting on Tue12/12/20 at 1441, Intra-op 1441 (Given - Provid er: Cleopatra Payan MD) fentaNYL (SUBLIMAZE) injection 50 mcg 50 mcg, Intravenous, EVERY 5 MIN PRN, Pain Moderate (4-6), Pain Severe (7-10), Starting on Tue12/12/20 at 1315, For 4 doses, Phase I - Initial therapy for severe pain., PACU only HYDROcodone-acetaminophen (NORCO) 5-325 MG per tablet 1 tablet 1 tablet, Oral, ONCE PRN, Pain Moderate (4-6), Pain Severe (7-10), Starting on Tue12/12/20 at 1315, For 1 dose, PHASE II, PACU only metoclopramide (REGLAN) injection 10 mg 10 mg, Intravenous, ONCE PRN, Nausea, Starting on Tue12/12/20 at 1315, For 1 dose, Initial antiemetic therapy., PACU only promethazine (PHENERGAN) injection 6.25 mg 6.25 mg, Intramuscular, ONCE PRN, Nausea, Starting on Tue12/12/20 at 1315, For 1 dose, Recommended route is IM. Caution if used IV:Check IV site for infiltrate prior to and during administration. Secondary antiemetic therapy. For IV administration, dilute to 10ml with normal saline. Must be administered over at least 10 minutes., PACU only Scheduled Medication Order 2021 02/12/2021 02/13/2021 acetaminophen (TYLENOL) tablet 650 mg (COMPLETED) 650 mg, Oral, ONCE, On Tue02/13/21 at 1145, For 1 dose, Maximum dose of acetaminophen is 4000 mg from all sources in 24 hours., Pre-op (day of surgery) 1152 (Given - Provid er: Catherine Lara RN) ceFAZolin (ANCEF) 2000 mg in dextrose 5 % 100 mL IVPB 2,000 mg, Intravenous, ONCE, 1 dose, On Tue02/13/21 at 1145, Pre-op (day of surgery) 1145 (Due) Continuous Medication Order 2021 02/12/2021 02/13/2021 lactated ringers infusion Intravenous, at 100 mL/hr, CONTINUOUS, Starting on Tue02/13/21 at 1145, Pre-op (day of surgery) 1159 (New Bag - Prov ider: Catherine Lara RN) PRN Medication Order 2021 02/12/2021 02/13/2021 HYDROcodone-acetaminophen (NORCO) 5-325 MG per tablet 1 tablet 1 tablet, Oral, ONCE PRN, Pain Moderate (4-6), Pain Severe (7-10), Starting on Tue02/13/21 at 1204, For 1 dose, PHASE II, PACU only Scheduled Medication Order 02/16/2021 02/17/2021 02/18/2021 acetaminophen (TYLENOL) tablet 650 mg (COMPLETED) 650 mg, Oral, ONCE, On Tue02/18/21 at 1215, For 1 dose, Maximum dose of acetaminophen is 4000 mg from all sources in 24 hours., Pre-op (day of surgery) 1225 (Given - Provid er: Andie Ibarra RN) ceFAZolin (ANCEF) 2000 mg in dextrose 5 % 100 mL IVPB (COMPLETED) 2,000 mg, IntraVENous, ONCE, 1 dose, On Tue02/18/21 at 1300, Pre-op (day of surgery) 1428 (New Bag - Prov ider: Shantel Bah RN)1458 (Due: Stopped - Provider: Shantel Bah RN) dimenhyDRINATE (DRAMAMINE) tablet 50 mg (COMPLETED) 50 mg, Oral, ONCE, On Tue02/18/21 at 1215, For 1 dose, Pre-op (day of surgery) 1225 (Given - Provid er: Andie Ibarra RN) lactated ringers infusion (COMPLETED) IntraVENous, at 100 mL/hr, ONCE, On Tue02/18/21 at 1215, For 1 dose, Pre-op (day of surgery) 1234 (New Bag - Prov ider: Andie Ibarra RN)1538 (Stopped - Provider: Ligia Fisher RN) PRN Medication Order 02/16/2021 02/17/2021 02/18/2021 bupivacaine (MARCAINE) 0.5 % injection (CANCELED) PRN, Starting on Tue02/18/21 at 1519, Intra-op 1519 (Given - Provid er: Cleopatra Payan MD) fentaNYL (SUBLIMAZE) injection 25 mcg 25 mcg, IntraVENous, EVERY 5 MIN PRN, Pain Moderate (4-6), Starting on Tue02/18/21 at 1447, For 4 doses, Phase I - Initial therapy for moderate pain., PACU only labetalol (NORMODYNE;TRANDATE) injection 5 mg 5 mg, IntraVENous, EVERY 10 MIN PRN, High Blood Pressure, Starting on Tue02/18/21 at 1449, PRN for SBP >160 for 2 consecutive measurements, if HR is 60 or greater. If beta miracle is contraindicated (HR less than 60, heart block, COPD or asthma) use hydralazine IV order., PACU only lidocaine-EPINEPHrine 1 %-1:[id number] injection (CANCELED) PRN, Starting on Tue02/18/21 at 1519, Intra-op 1519 (Given - Provid er: Cleopatra Payan MD) ondansetron (ZOFRAN) injection 4 mg 4 mg, IntraVENous, ONCE PRN, Nausea, Starting on Tue02/18/21 at 1449, For 1 dose, Initial antiemetic therapy., PACU only INFORMATION SOURCE (unrecogn ized section and content) DATE CREATED AUTHOR 02/19/2021 [facility] DATE CREATED AUTHOR AUTHOR'S ORGANIZ ATION 07/30/2021 [facility] DATE CREATED AUTHOR AUTHOR'S ORGANIZ ATION 10/08/2021 [facility] DATE CREATED AUTHOR AUTHOR'S ORGANIZ ATION 02/06/2023 [facility] DATE CREATED AUTHOR AUTHOR'S ORGANIZ ATION 11/25/2023 [facility] EPIC DATE CREATED AUTHOR AUTHOR'S ORGANIZ ATION 07/11/2024 [facility] Care Teams (unrecognized sec tion and content) Computer Analyst Supervisor Relationship Specialty Start Date End Date Sia Thompson APRN - TONE REGULATOR [address] [place] [phone] PCP - General 12/05/20 Computer Analyst Supervisor Relationship Specialty Start Date End Date Sia Thompson APRN - TONE REGULATOR [address] [place] [phone] PCP - General 12/05/20 Computer Analyst Supervisor Relationship Specialty Start Date End Date Sia Thompson PORTABLE GRINDING MACHINE OPERATOR - TONE REGULATOR [address] [place] [phone] PCP - General 12/05/20 Team Status: Inactive Member Role Status Dates Ariel Mckeon MD Attending Provider Active MARCELINO Morrow Primary Care Provider Active Team Status: Active Member Role Status Dates Ariel Mckeon MD Attending Provider Active PHYSICIAN NO FAMILY Primary Care Provider Active Team Status: Inactive Member Role Status Dates Ariel Mckeon MD Attending Provider Active PHYSICIAN NO FAMILY Primary Care Provider Active Team Status: Active Member Role Status Dates Sia R Klonk , TONE REGULATOR-C Primary Care Provider Active Team Status: Inactive Member Role Status Dates MARCELINO Morrow Primary Care Provider Active Ariel Mckeon MD Attending Provider Active Team Status: Active Member Role Status Dates MARCELINO Morrow Primary Care Provider Active Ariel Mckeon MD Attending Provider Active Team Status: Active Member Role Status Dates MARCELINO Morrow Primary Care Provider, Attending Provider Active Goals (unrecognized section and content) Goals may be documented in a n alternate section FOR RECORDS PERTAINING TO PATIENTS WHO ARE OR HAVE BEEN ENROLLED IN A CHEMICAL DEPENDENCY/SUBSTANCEABUSE PROGRAM, SOME INFORMATION MAY BE OMITTED. This clinical summary was aggregated from multiple sources. Caution should be exercised in using it in the provision of clinical care. This summary normalizes information from multiple sources, and as a consequence, information in this document may materially change the coding, format and clinical context of patient data. In addition, data may be omitted in some cases. CLINICAL DECISIONS SHOULD BE BASED ON THE PRIMARY CLINICAL RECORDS. [employer] provides no warranty or guarantee of the accuracy or completeness of information in this document.
[2024-08-06 12:50] VITALS: BP 141/87; PULSE 85; TEMP 36.2; O2SAT 94; BMI 36.4
[2024-08-06] MEDS: LACTATED RINGER'S SOLUTION 1,000 ML 50 ML IV (13:19)
[2024-08-06] MEDS: CEFAZOLIN SODIUM 2 GM/50 ML D5W PREMIX IV (14:19)
--- NOTE | 2024-08-06 14:34 | P.ORPRC_ITS ---
<Statement entered by Yovani Payan MD - 08/20/24 13:12> This note was already dictated. this incomplete note can be deleted Procedure Note Date of procedure: 08/06/24 Pre-op diagnosis: Right long trigger finger Post-op diagnosis: same as pre-op Anesthesia: MAC and local Surgeon: Yovani Payan Estimated blood loss (mL): 1 Pathology: none sent Condition: stable Disposition: PACU
[2024-08-06] MEDS: BUPIVACAINE HCL 0.5% PF 50 MG/10 ML VIAL 3 ML INJ (14:55)
[2024-08-06] MEDS: LIDOCAINE HCL 1%-EPINEPHRINE 1:100,000 20 ML MDV 3 ML INJ (14:55)
[2024-08-06 15:07] VITALS: BP 145/87; PULSE 84; O2SAT 96
[2024-08-06 15:22] VITALS: BP 165/99; PULSE 83; O2SAT 99
--- NOTE | 2024-08-06 15:26 | PM.ORPRC ---
Procedure Note Date of procedure: 08/06/24 Pre-op diagnosis: Right long finger Procedure: Operative Procedure: Right long trigger finger release The patient has had painful triggering in the above noted fingers/fingers. Treatment options were discussed with the patient as well as risks and benefits and they have elected to proceed with the above surgery. Operative Procedure: After informed consent was obtained the patient was brought to the operating room and placed in the supine position. Preoperatively they received intravenous antibiotics monitored anesthetic was administered. Next local anesthetic infiltrated over the A1 ezequiel of the right long finger. 3 mL 1% lidocaine with epinephrine combined with 3 mL half percent Marcaine plain was utilized. The arm was prepped and draped in the usual sterile fashion. . A 1 cm incision was made in a preexisting transverse crease overlying the A1 ezequiel. Blunt dissection was carried down to the A1 ezequiel. The ezequiel was then incised from distal to proximal. Complete release was performed. The underlying tendon was visualized and found to be normal. The patient then flexed the digit and the triggering had resolved. The wound was irrigated and closed with a nylon suture. A sterile dressing was placed. The patient was then brought to the recovery room. There were no intraoperative or postoperative complications. Anesthesia: MAC and local Surgeon: Yovani Payan Estimated blood loss (mL): 1 Pathology: none sent Condition: stable Disposition: PACU
[2024-08-06 15:51] VITALS: BP 129/82; PULSE 80; O2SAT 97
== END 2024-08-06 16:15 | disposition home or self-care (01) ==
PROVIDERS: PCP Nurse Practitioner Family; Visit Provider Orthopaedic Surgery
PROC: (CPT 1810; principal; 2024-08-06 13:35)
DX: M65.331 Trigger finger, right middle finger (principal); Z98.51 Tubal ligation status
CPT/HCPCS: 26055; J0665; J0690; J1100; J2250; J2704; J3010

== ENCOUNTER 2024-12-16 17:28 | Emergency (ER) | payer MEDICARE, MEDICAID, SELFPAY ==
[2024-12-16] VITALS (10 sets, daily range): BP systolic 148; BP diastolic 92; PULSE 68–80; TEMP 36.6; O2SAT 97; BMI 33.1
--- NOTE | 2024-12-16 17:34 | ECG_ITS ---
[facility] Test Date: 2024-12-16 Pat Name: DASHA WRIGHT Department: Room: - Gender: Female Senior Adults Director: : 1970 Requested By: [id number] Order Number: [id number] Reading MD: PAUL GROVER M.D. Measurements Intervals [place] Rate: 68 P: 58 PA: 184 QRS: -19 QRSD: 90 T: 53 QT: 400 QTc: 418 Interpretive Statements 1100 Sinus rhythm 9110 normal ECG Compared to ECG 08/01/2024 15:05:25 No significant changes Electronically Signed On 12-16-2024 22:11:43 EDT by PAUL GROVER M.D.
[2024-12-16] MEDS: 0.9 % SODIUM CHLORIDE 1,000 ML 1000 ML IV (17:47)
--- OUTSIDE RECORDS SUMMARY | 2024-12-16 17:49 | XMS_ITS | Encounter Summary ---
Author Organization Artemio Garciadrake [facility] Address [address] [place] [address] Care Team Providers Care Combustion Engineer Name Role Phone BrianspikeAidenSia Gill BOYD - PROPERTY MANAGEMENT ACCOUNTANT Primary Care Provider Reason for Referral * Imaging (Routine) - Closed Specialty Diagnoses / Procedures Referred By Contac t Referred To Contact Radiology Diagnoses Acute pain of right knee Procedures MRI KNEE RIGHT WO CONTRAST Yovani Payan MD [address] [place] [address] Phone: tel: fax: Referral ID Status Reason Start Date Expiration Date Visits Re quested Visits Authorized [id number] Closed 02/06/2021 03/07/2021 1 1 Encounter Details Date Type Department Care Team (Latest Contact Info) Description 02/16/2021 Transcribe Orders [place] [facility] [address] [place] [address] Yovani Payan MD [address] [place] [place] [address] Acute pain of right knee (Primary Dx) Social History Tobacco Use Types Packs/Day Years Used Date Smoking Tobacco: Never Smokeless Tobacco: Never Alcohol Use Standard Drinks/Week Comments Yes 0 (1 standard drink = 0.6 oz pur e alcohol) SOCIAL PHQ-2 Answer Date Recorded PHQ-9 Total Score 2 01/01/2020 Comments No Sex and Gender Information Value Date Recorded Sex Assigned at Female 12/09/2020 2:42 PM EDT Legal Sex Female 5:51 PM EST Gender Identity Female 12/09/2020 2:42 PM EDT Sexual Orientation Straight 12/09/2020 2: 42 PM EDT Occupation Industry Job Start Date Job End Date Retail Not on file Not on file Not on file COVID-19 Exposure Response Date Recorded In the last month, have you been in contact with someone who was confirmed or suspected to have Coronavirus / COVID-19? No / Unsure 02/18/2021 12:07 PM EDT documented as of this encounter Plan of Treatment Upcoming Encounters Date Type Department Care Team (Late st Contact Info) Description 10/25/2025 9:00 AM EDT Office Visit [facility] UPHOLSTERY COVERS INSPECTOR [address] [place] [address] Carrillo YongDEB - FLORIDALMA [address] [place] [address] yearly documented as of this encounter Results * MRI KNEE RIGHT WO CONTRAST (02/20/2021 8:54 AM EDT) Anatomical Region Laterality Modality Thigh, Knee, Leg Magnetic Resona nce 02/20/2021 9:09 AM EDT Impressions 02/20/2021 11:26 AM EDT 1. An obliquely oriented radial tear involves [...] patellar apex. 4. Small ruptured Lacey cyst. Narrative 02/20/2021 11:26 AM EDT EXAM: MRI KNEE RIGHT WO [...] planes. No acute bony abnormality is identified. Procedure Note Leandro Hernandez MD - 02/20/2021 EXAM: MRI KNEE RIGHT WO CONTRAST COMPARISON: [...] collateral ligaments are intact. The patellar tendon demonstratesintermediate T2 signal proximally consistent with mild tendinopathy. The distalquadriceps tendon is intact. There is an obliquely oriented radial tear involving the posterior horn ofthe medial meniscus towards the meniscal root well seen on coronalfat-saturated proton density image 17. There is low to moderate grade articularcartilage loss in the medial compartment more pronounced along the medial femoralcondyle centrally. No lateral meniscal tear is evident. The articular cartilage in thelateral compartment is intact. There is a small joint effusion. Low to moderate grade articular cartilageloss is present in the patellofemoral compartment with an area of linearhigh-grade chondral fissuring along the patellar apex. There is a small ruptured Lacey cyst with edema in the adjacent fascialplanes. No acute bony abnormality is identified. IMPRESSION: 1. An obliquely oriented radial tear involves the posterior horn of themedial meniscus towards the meniscal root. There is low to moderate gradearticular cartilage loss in the medial compartment. 2. No MRI evidence of lateral meniscal tear or acute ligament tear. 3. There is a small joint effusion with low to moderate grade articular cartilage loss in the patellofemoral compartment. An area of linearhigh-grade chondral fissuring involves the patellar apex. 4. Small ruptured Lacey cyst. us Yovani Payan MD IMG MRI ORDERABLES Final Re sult documented in this encounter Visit Diagnoses Diagnosis Acute pain of right knee- Primary Acute pain of right knee documented in this encounter Additional Health Concerns Infection Onset Date Last Indicated Resolved Time COVID-19 (Rule Out) 02/16/2021 02/16/2021 02/18/20 21 12:54 PM EDT documented as of this encounter Care Teams Combustion Engineer Relationship Specialty Start Date End Date Sia Thompson, DEB - PROPERTY MANAGEMENT ACCOUNTANT [address] [place] [address] PCP - General 12/05/20 documented as of this encounter
--- OUTSIDE RECORDS SUMMARY | 2024-12-16 17:49 | XMS_ITS | Encounter Summary ---
Author Organization [facility] Address [facility] [place] [address] Care Team Providers Care Military Technician Name Role Phone Sia Thompson DEB.[facility] Primary Care Provider + Source Comments In the event this information is protected by the Federal Confidentiality of Alcohol and Drug AbusePatient Records regulations: The Federal rules restrict any use of the information to criminally investigate or prosecute any alcohol or drug abuse patient.[facility] Encounter Details Date Type Department Care Team (Late st Contact Info) Description 01/05/2021 Patient Msg General Surgery [address] [place] [address] Provider, Ccf EGD Social History Tobacco Use Types Packs/Day Years Used Date Smoking Tobacco: Never Assessed Area Deprivation Index Answer Date George rded National Score (1-100), lower number is lower ri sk Not on file 01/05/2021 State Score (1-10), lower number is lower risk N ot on file 01/05/2021 Data from: https://www.neighborhoodatlas.medicine.[facility].edu/. Last address used for calculation Not on file 01/05/2021 Comments Unknown Sex and Gender Information Value Date Recorded Sex Assigned at Female 12/31/2020 4:11 PM EDT Legal Sex Female 3:29 PM EDT Gender Identity Female 12/31/2020 4:11 PM EDT Sexual Orientation Straight 12/31/2020 4: 11 PM EDT documented as of this encounter Plan of Treatment Not on file documented as of this encounter Visit Diagnoses Not on filedocumented in this encounter Care Teams Military Technician Relationship Specialty Start Date End Date Sia Thompson, DEB.LAB SCIENTIST [address] [place] [address] PCP - General Internal Medicine 01/05/21 documented as of this encounter
--- OUTSIDE RECORDS SUMMARY | 2024-12-16 17:49 | XMS_ITS | Encounter Summary ---
Author Organization [facility] Address [facility] [place] [address] Care Team Providers Care Curriculum Consultant Name Role Phone Sia Thompson DEB.[facility] Primary Care Provider + Source Comments In the event this information is protected by the Federal Confidentiality of Alcohol and Drug AbusePatient Records regulations: The Federal rules restrict any use of the information to criminally investigate or prosecute any alcohol or drug abuse patient.[facility] Encounter Details Date Type Department Care Team (Late st Contact Info) Description 12/15/2020 Patient Msg BMI [facility] [address] [address] [place], [place] [id number] [place] [address] [place], [place] [id number] RE: Request an Appointment Social History Tobacco Use Types Packs/Day Years Used Date Smoking Tobacco: Never Assessed Area Deprivation Index Answer Date George rded National Score (1-100), lower number is lower ri sk Not on file 12/08/2020 State Score (1-10), lower number is lower risk N ot on file 12/08/2020 Data from: https://www.neighborhoodatlas.medicine.[facility].edu/. Last address used for calculation Not on file 12/08/2020 Comments Unknown Sex and Gender Information Value [...] on filedocumented in this encounter Care Teams Curriculum Consultant Relationship Specialty Start Date End Date Sia Thompson, THEATRICAL AGENT.[facility] [address] [place] [address] PCP - General Internal Medicine 01/05/21 documented as of this encounter
--- OUTSIDE RECORDS SUMMARY | 2024-12-16 17:49 | XMS_ITS | Encounter Summary ---
Author Organization [facility] Address [address] [place] [address] Care Team Providers Care Business Lawyer Name Role Phone Sia Thompson DEB.[facility] Primary Care Provider + Source Comments In the event this information is protected by the Federal Confidentiality of Alcohol and Drug AbusePatient Records regulations: The Federal rules restrict any use of the information to criminally investigate or prosecute any alcohol or drug abuse patient.[facility] Encounter Details Date Type Department Care Team (Late st Contact Info) Description 01/05/2021 Patient Msg General Surgery [address] [place] [address] Provider, Ccmatt Establish official BMI Social History Tobacco Use Types Packs/Day Years Used Date Smoking Tobacco: Never Assessed Area Deprivation Index Answer Date George rded National Score (1-100), lower number is lower ri sk Not on file 01/05/2021 State Score (1-10), lower number is lower risk N ot on file 01/05/2021 Data from: https://www.neighborhoodatlas.medicine.[facility].edu/. Last address used for calculation Not on [...] on filedocumented in this encounter Care Teams Business Lawyer Relationship Specialty Start Date End Date Sia Thompson, BARREL RAISER HELPER.LOGISTICS INTERN [address] [place] [address] PCP - General Internal Medicine 01/05/21 documented as of this encounter
--- OUTSIDE RECORDS SUMMARY | 2024-12-16 17:49 | XMS_ITS | Encounter Summary ---
Author Organization [facility] Address [address] [place] [address] Care Team Providers Care Electrocardiogram Technician Name Role Phone Sia Thompson DEB.[facility] Primary Care Provider + Source Comments In the event this information is protected by the Federal Confidentiality of Alcohol and Drug AbusePatient Records regulations: The Federal rules restrict any use of the information to criminally investigate or prosecute any alcohol or drug abuse patient.[facility] Encounter Details Date Type Department Care Team (Late st Contact Info) Description 12/15/2020 Patient Msg General Surgery [address] [place] [address] Provider, Agustin Welcome to the BMI Program! Social History Tobacco Use Types Packs/Day Years Used Date Smoking Tobacco: Never Assessed Area Deprivation Index Answer Date George rded National Score (1-100), lower number is lower ri sk Not on file 12/08/2020 State Score (1-10), lower number is lower risk N ot on file 12/08/2020 Data from: https://www.neighborhoodatlas.medicine.[facility].edu/. Last address used for calculation Not on [...] on filedocumented in this encounter Care Teams Electrocardiogram Technician Relationship Specialty Start Date End Date Sia Thompson, DEB.PRINCIPAL AUTOMATION ENGINEER [address] [place] [address] PCP - General Internal Medicine 01/05/21 documented as of this encounter
--- OUTSIDE RECORDS SUMMARY | 2024-12-16 17:49 | XMS_ITS | Encounter Summary ---
Author Organization [facility] Address [facility] [place] [address] Care Team Providers Care Housekeeper Nanny Name Role Phone Sia Thompson DEB.[facility] Primary Care Provider + Source Comments In the event this information is protected by the Federal Confidentiality of Alcohol and Drug AbusePatient Records regulations: The Federal rules restrict any use of the information to criminally investigate or prosecute any alcohol or drug abuse patient.[facility] Encounter Details Date Type Department Care Team (Late st Contact Info) Description 02/20/2021 Patient Msg BMI [facility] [address] [address] [place], [place] [id number] Provider, Ccf Nutrition Social History Tobacco Use Types Packs/Day Years Used Date Smoking Tobacco: Never Assessed Area Deprivation Index Answer Date George rded National Score (1-100), lower number is lower ri sk Not on file 01/05/2021 State Score (1-10), lower number is lower risk N ot on file 01/05/2021 Data from: https://www.neighborhoodatlas.medicine.[facility].edu/. Last address used for calculation [...] on filedocumented in this encounter Care Teams Housekeeper Nanny Relationship Specialty Start Date End Date Sia Thompson, GED INSTRUCTOR.ROUTER TENDER [address] [place] [address] PCP - General Internal Medicine 01/05/21 documented as of this encounter
--- OUTSIDE RECORDS SUMMARY | 2024-12-16 17:49 | XMS_ITS | Encounter Summary ---
Author Organization [facility] Address [address] [place] [address] Care Team Providers Care Electric Power Superintendent Name Role Phone BrianSia lala iGll SILVESTREN - [facility]ARLER Primary Care Provider Encounter Details Date Type Department Care Team (Late Contact Info) Description 10/28/2024 Results Follow-Up [facility] Part of [address] [place] [address] Arden Mack MD [address] [place] [address] [address] [place], [place] [id number] Social History Tobacco Use Types Packs/Day Years [...] file Not on file Not on file documented as of this encounter Plan of Treatment Upcoming Encounters Date Type Department Care Team (Late Contact Info) Description 10/25/2025 9:00 AM EDT Office Visit [facility] ROTARY DRILLER PROSPECTING [address] [place] [address] [place] [address] Yong Vizcaino APRN - CNM [address] [place] [address] yearly documented as of this encounter Visit Diagnoses Not on filedocumented in this encounter Care Teams Electric Power Superintendent Relationship Specialty Start Date End Date Sia Thompson APRN - RONALD [address] [place], [place] [id number] PCP - General 12/05/20 documented as of this encounter
--- OUTSIDE RECORDS SUMMARY | 2024-12-16 17:49 | XMS_ITS | Clinical Summary ---
Author Organization [facility] Address [address] [place] [address] Care Team Providers Care Computer Systems Hardware Analyst Name Role Phone Sia Thompson Gill POEPAPER COATING SUPERVISOR Primary Care Provider + Medications * This document contains information received from the source organization and may not represent a complete record from that organization. polyethylene glycol 3350 (MIRALAX, GLYCOLAX) 17 gram/dose powder Use as directed for Miralax / Gatorade Bowel Prep Kit 238 g 01/05/2021 Active Gatorade Sports Drink Use as directed for Miralax / Gatorade Bowel Prep Kit 64 oz 01/05/2021 Active Bisacodyl (DULCOLAX) 5 mg tab Use as directed for Miralax / Gatorade Bowel Prep Kit 4 tablet 01/05/2021 Active Social History Tobacco Use Types Packs/Day Years Used Date Smoking Tobacco: Never Assessed Area Deprivation Index Answer Date George rded National Score (1-100), lower number is lower ri sk Not on file 01/05/2021 State Score (1-10), lower number is lower risk N ot on file 01/05/2021 Data from: https://www.neighborhoodatlas.medicine.[facility].edu/. Last address used for calculation Not on file 01/05/2021 Comments Unknown Sex and Gender Information Value Date Recorded Sex Assigned at Female 12/31/2020 4:11 PM EDT Legal Sex Female 3:29 PM EDT Gender Identity Female 12/31/2020 4:11 PM EDT Sexual Orientation Straight 12/31/2020 4: 11 PM EDT Last Filed Vital Signs Vital Sign Reading Time Taken Comments Blood Pressure - - Pulse - - Temperature - - Respiratory Rate - - Oxygen Saturation - - Inhaled Oxygen Concentration - - Weight 98.9 kg (218 lb) 01/07/2021 8:13 AM EDT Height 160 cm (5' 3 ) 01/07/2021 8:13 AM EDT Body Mass Index 38.62 01/07/2021 8:13 AM EDT Plan of Treatment Health Maintenance Due Date Last Done Comments Anxiety Screening 1987 Depression Screening 1987 HIV Screening 1987 Hepatitis C Screening 1987 DTaP,Tdap,Td Vaccine (1 - Tdap) 02/12/1988 Hepatitis B Vaccine (1 of 3 - 19+ 3-dose series) 02/12/1988 Cervical Cancer Screening [address] Colonography 2014 Cologuard (FIT-DNA) 2014 Colonoscopy 2014 Colorectal Cancer Screening 2014 Fecal Occult Blood 2014 Lipid Screening 2014 Sigmoidoscopy 2014 Pneumococcal Vaccine: 50+ (1 of 1 - PCV) 2019 Shingrix Vaccine (1 of 2) 2019 Diabetes Screening 12/06/2023 12/05/2020, 0 07/09/2020, 01/16/2018 Covid-19 Vaccine ( - 2023- season) 2024 Influenza Vaccine (Season Ended) 2025 Insurance [employer]VANT[employer] HMO Care Teams Computer Systems Hardware Analyst Relationship Specialty Start Date End Date Sia Thompson, SQUASH CENTRE MANAGER.PAPER COATING SUPERVISOR [address] [place] [address] PCP - General Internal Medicine 01/05/21
--- OUTSIDE RECORDS SUMMARY | 2024-12-16 17:49 | XMS_ITS | Encounter Summary ---
Author Organization [facility] Address [address] [place] [address] Care Team Providers Care Manager Contact Name Role Phone Sia Thompson DEB.[facility] Primary Care Provider + Source Comments In the event this information is protected by the Federal Confidentiality of Alcohol and Drug AbusePatient Records regulations: The Federal rules restrict any use of the information to criminally investigate or prosecute any alcohol or drug abuse patient.[facility] Encounter Details Date Type Department Care Team (Late st Contact Info) Description 01/07/2021 Patient Msg General Surgery [address] [place] [address] Provider, Ccf Appointment scheduled Social History Tobacco Use Types Packs/Day Years Used Date Smoking Tobacco: Never Assessed Area Deprivation Index Answer Date George rded National Score (1-100), lower number is lower ri sk Not on file 01/05/2021 State Score (1-10), lower number is lower risk N ot on file 01/05/2021 Data from: https://www.neighborhoodatlas.medicine.[facility].edu/. Last address used for calculation [...] on filedocumented in this encounter Care Teams Manager Contact Relationship Specialty Start Date End Date Sia Thompson, KNITTER OPERATOR.CAMP DINING ROOM ATTENDANT [address] [place] [address] PCP - General Internal Medicine 01/05/21 documented as of this encounter
--- OUTSIDE RECORDS SUMMARY | 2024-12-16 17:50 | XMS_ITS | Patient Health Record ---
Author Organization [facility] Address [address] [place] [address] Care Team Providers Care Brick Offbearer Name Role Phone Yovani Payan Unavailable [phone] Christiano Staffrod Unavailable [phone] Allergies Allergen (clinical drug ingredient) Drug/Non Drug Allergy documented on EMR Reaction Allergy Type Onset Date Status Seasonal (uncoded) sneezing, itc hy eyes Allergy Active tramadol tramadol nausea/vomiting Drug Allergy A ctive Results Component Value Reference Range Notes Surgery Scheduling Reviewed date:08/01/2024 09:39:30 AM Interpretation: Performing Lab: Notes/Report: Social Sec number: [id number] Primary Insurance Company: [employer] [facility] [employer] COMPLETE MEDICARE Surgeon/Assist: [place] Surgery Location: [facility] Surgery Date & Time: 08/06/24 Surgery End Time: 30 MINUTES Procedure: RIGHT LONG TRIGGER F AUGUSTO RELEASE Diagnosis: M65.331 Admission Type: OUTPATIENT Anesthesia Type/CPNB: LOCAL MAC Post-op Appointment Date: 08/20/24 Latex Allergy NO Lab Location: [facility] Office Helper: MAE Reason For Referral Reason Please contact matti lopez to schedule with Dr. Stafford for genicular nerve block, thank you Diagnosis 1 Acute pain of left k nee (M25.562) Referral Organization [facility] Referring Provider First Name Yovani Referring Provider Last Name Ora Referring Provider Speciality Orthopedic Surgery Referred Organization [facility] Referred Address [address] [place] [address],[place], [place],[address], General Notes Katelynn cohen 024 09:21:13 AM > Patient has been scheduled for a consultation visit with Dr. Stafford. Referral Priority Routine Reason JULIUS.........PLEASE O BTAIN AUTHORIZATION FOR RIGHT LONG TRIGGER FINGER RELEASE Diagnosis 1 Trigger middle finge r of right hand (M65.331) Referral Organization [facility] Referring Provider First Name Yovani Referring Provider Last Name [place] Lillian Referring Provider Speciality Orthopedic Surgery Referred Organization [facility] Referred Address [address] [facility],[place], [place],[address], Procedure 1 Tendon sheath incisi on ([address]) General Notes Raquel Garcia 025 01:50:52 PM >PER [facility], NO AUTH REQUIRED MA NOTIFIED REF FAXED TO [facility] Referral Priority Routine Social History Tobacco Use: Social History Observation Description Date Details (start date - stop date) Never Smoker NA - NA Smoking History Question Answer Notes Smoking Status NonSmoker AUDIT-C (Standard) Question Answer Notes Did you have a drink containing alcohol in the p ast year? No Points 0 Interpretation Negative Problems Problem Type SNOMED Code ICD Code Onset Dates Problem Status W/U Status Risk Notes Problem [id number] Osteoarthritis o f left knee, unspecified osteoarthritis type (M17.12) Active confirmed Problem 558300482 Encounter for other orthopedic aftercare (Z47.89) Active confirmed Vital Signs Height 5'3 in 08/20/2024 Weight 207 lbs 08/20/2024 BMI 36.66 08/20/2024 Encounters Encounter Location Date Provider Diagnosis [facility] [address] [facility] [place] [address] 12/26/2023 Yovani Payan Osteoarthritis of le ft knee, unspecified osteoarthritis type M17.12 [facility] [address] [facility] [place] [address] 07/30/2024 Yovani Payan Trigger middle finge r of right hand M65.331 and Preop testing Z01.818 [facility] [address] [place] [address] 08/06/2024 Yovani Payan Trigger finger, righ t middle finger M65.331 [facility] [address] [place] [address] [place] [address] 08/20/2024 Yovani Payan Encounter for other orthopedic aftercare Z47.89 Assessments Encounter Date Diagnosis (ICD Code) Assessment Notes Treatment Notes Treatment Clinical Notes Section Notes 12/26/2023 Osteoarthritis of left knee, unspecified osteoarthritis type (ICD-10 - M17.12) 07/30/2024 Trigger middle finger of right hand (ICD-10 - M65.331) 07/30/2024 Preop testing (ICD-10 - Z01.818) 08/06/2024 Trigger finger, right middle finger (ICD-10 - M65.331) 08/20/2024 Encounter for other orthopedic aftercare (ICD-10 - Z47.89) 12/26/2023 Other I discussed with the patient that at this point her arthritis is not bad enough to proceed with knee replacement surgery. I have recommended she see Dr. Stafford for consideration of genicular nerve blocks. She will follow-up with me on an as-needed basis. Import medication 07/30/2024 Other For right long trigger finger we have discussed both conservative and surgical treatment options. We have discussed the risks of surgery including but not limited to risk of no improvement in symptoms and risk of permanent numbness in the tip of the finger. We have gone through additional risks and the informed consent process which she understands and has elected to proceed with a right long trigger finger release under monitored anesthetic. This will serve as the H & P. Import medication 08/20/2024 Other Patient is doing well after right long trigger finger release. She will progress with activities as tolerated and follow-up on an as-needed basis. Import medication Plan Of Treatment Pending Test Test Name Order Date [facility]- KNEE 4 VIEW [id number] 12/26/2023 Insurance Providers Payer Name Payer Address Payer Phone Subscriber Number Group Number Insured Name Patient Relationship to Insured Coverage Start Date Coverage End Date MEDICARE UHC DUAL COMPLETE [address] [place] [address] [phone] [id number] DASHA WRIGHT Self - [facility] the [facility] [address] [place] [address] [id number] DASHA WRIGHT Self - patient is the insured Medical (General) History Medical History History ICD Code Asthma/COPD Yes High Blood Pressure: Yes CPAP Machine: No Do you use the CPAP machine? No Do you have a pacemaker or A ICD(automatic internal cardiac defibrillator)? No Latex Allergy No Drug Allergies: No Bariatric Surgery: No Have you been in close conta ct with someone who has had MRSA within the last year? No, Have you ever had or presently have MRSA ? No, Are you a healthcare worker? No, Asthma/COPD Yes Respiratory problems: Yes High Blood Pressure: Yes Depression: Yes Anxiety: Yes Sleep apnea: No CPAP Machine: No Do you have a pacemaker or A ICD(automatic internal cardiac defibrillator)? No Latex Allergy No Drug Allergies: Yes Bariatric Surgery: No Have you been in close conta ct with someone who has had MRSA within the last year? No Have you ever had or presently have MRSA ? No Surgical History Surgery Date(Month/Year) Right long trigger finger release Arthroscopy of right knee with partial m edial meniscectomy 03/2021 Left endoscopic carpal tunnel release Biceps and shoulder Right tubal ligation 1993 appendix 1986
--- OUTSIDE RECORDS SUMMARY | 2024-12-16 17:50 | XMS_ITS | Clinical Summary ---
Author Organization [facility] Address [address] [place] [address] Care Team Providers Care Ultrasound Technol Name Role Phone Sia Thompson APRN - RING MAKING MACHINE OPERATOR Primary Care Provider Allergies Active Allergy Reactions Criticality Noted Date Comments Tramadol Other (See Comments) Low 07/18/2020 Dizziness, lightheadedness Medications albuterol sulfate HFA (PROVENTIL;VENT SERVANDO;PROAIR) 108 (90 Base) MCG/ACT inhaler INHALE 1 PUFF BY MOUTH EVERY 4 HOURS NEEDED FOR WHEEZING OR SHORTNESS OF BREATH Active FLUTICASONE FUROATE IN Inhale into the lungs 5 Active ibuprofen (ADVIL;MOTRIN) 800 MG tablet Take 1 tablet by mouth 3 times daily 5 Active phentermine (ADIPEX-P) 37.5 MG tablet Take 1 tablet by mouth daily. 5 Active Active Problems Problem Noted Date Diagnosed Date Adult BMI > 30 08/24/2016 Essential hypertension WAI II (cervical intraepithelial neoplasia II) Resolved Problems Problem Noted Date Diagnosed Date Resolved Date Encounter for cosmetic surgery 10/19/2017 05/16/2018 Moderate persistent asthma w ithout complication 08/24/2016 03/29/2018 Asthma, moderate persistent 05/16/2018 Encounters Date Type Department Care Team Description 10/28/2024 Results Follow-Up [facility] Part of [address] [place] [id number] Arden Mack MD 10/23/2024 5:14 PM EDT - 10/23/2024 11:59 PM EDT Hospital Encounter [facility] [address] [place] [address] Encounter for well woman exam with routine gynecological exam Discharge Disposition: Home or Self Care 10/23/2024 2:30 PM EDT Office Visit [facility] [employer] [address] [id number] Arden Mack MD Encounter for well woman exam with routine gynecological exam (Primary Dx); Screening mammogram for breast cancer from Last 3 Months Family History Medical History Relation Name Comments Anxiety Disorder Mother Arthritis Mother Depression Mother Diabetes Mother High Blood Pressure Mother High Cholesterol Mother Diabetes Sister Relation Name Status Comments Mother Sister Social History Tobacco Use Types Packs/Day Years Used Date Smoking Tobacco: Never Smokeless Tobacco: Never Tobacco Cessation:Counseling Given: Not Answered Alcohol Use Standard Drinks/Week Comments Yes 0 [...] file Not on file Not on file Last Filed Vital Signs Vital Sign Reading Time Taken Comments Blood Pressure 126/82 10/23/2024 2:31 PM EDT Pulse 74 04/03/2021 10:03 AM EDT Temperature 37 C (98.6 F) 04/03/2021 11:48 AM EDT Respiratory Rate 18 04/03/2021 10:03 AM EDT Oxygen Saturation 91% 04/03/2021 12:45 PM EDT Inhaled Oxygen Concentration - - Weight 89.4 kg (197 lb) 10/23/2024 2:31 PM EDT Height 160 cm (5' 3 ) 10/23/2024 2:31 PM EDT Body Mass Index 34.9 10/23/2024 2:31 PM EDT Plan of Treatment Upcoming Encounters Date Type Department Care Team (Late st Contact Info) Description 10/25/2025 9:00 AM EDT Office Visit [facility] [employer] [address] [place] [address] Yong Vizcaino APRN - [facility] [address] [place] [address] yearly Health Maintenance Due Date Last Done Comments Depression Screen 1981 Hepatitis C screen 1987 DTaP/Tdap/Td vaccine (1 - Tdap) 02/12/1988 Hepatitis B vaccine (1 of 3 - 19+ 3-dose series) 02/12/1988 HPV (without or with Pap) 1999 Colonoscopy 2014 Colorectal Cancer Screen 2014 FIT/FOBT: Average risk 2014 Fecal-DNA (Cologuard): Average risk 2014 Sigmoidoscopy/CT colonography 2014 Pneumococcal 50+ years Vaccine (1 of 1 - PCV) 2019 Shingles vaccine (1 of 2) 2019 Diabetes screen 01/16/2021 01/16/2018 COVID-19 Vaccine (2 - season) 2024 10/27/2020 Annual Wellness Visit (Medicare Advantage) 06/27/2024 Breast cancer screen 10/12/2024 10/12/2022, 01/23/2020, 01/22/2019, Additional history exists Lipids 12/09/2024 12/10/2019, 08/25/2016 Flu vaccine (Season Ended) 2025 Cervical cancer screen 10/24/2027 Pap smear 10/24/2027 10/23/2024, 04/0 10/2021, 01/01/2020, Additional history exists HIV screen Addressed 11/28/2015 (Declined) Overri dden with the intention of not completing the topic Hepatitis A vaccine Aged Out No longe r eligible based on patient's age to complete this topic Hib vaccine Aged Out No longer eligi ble based on patient's age to complete this topic Meningococcal (ACWY) vaccine Aged Out No longer eligible based on patient's age to complete this topic Meningococcal B vaccine Aged Out No l onger eligible based on patient's age to complete this topic Polio vaccine Aged Out No longer rk rooney based on patient's age to complete this topic Medical Devices Implanted Type Area Subway Train Operator Device Identifier Shelf Expiration Date Model / Serial / Lot Button Endoscopic Bicep 2.6x12mm Implanted:Qty: 1 on 11/24/2018 by Yovani Payan MD at [facility] Fastener Left: Shoulder [employer] 12/24/2022 [id number] / / [id number] Procedures Procedure Name Priority Date/Time Associated Diagnosis Comments CONSULTANT DIETITIAN CYTOLOGY Routine 10/23/2024 12:00 AM EDT PHANI SCREENING BILATERAL Routine 10/12/2022 LIPID PANEL Routine 12/10/2019 BASIC METABOLIC PANEL, FASTING Routine 01/16/2018 7:41 AM EDT Essential hypertension from Last 3 Months or Most Recently Relevant to Health Maintenance Results * CONSULTANT DIETITIAN Cytology (10/23/2024 12:00 AM EDT) Cytology Report Path Number: [id number] DIAGNOSIS Imaged ThinPrep Pap - Cervical (1 monolayer slide): Specimen Adequacy: Satisfactory for evaluation. - Endocervical/trans formation zone component present. Descriptive Diagnosis: Negative for intraepithelial lesion or malignancy. Comments: Specimen was screened at [facility], [address] [place] [address] Cytotech Screener: CS Electronically Signed Out REBEKAH Tapia(ASCP) cs/10/27/2024 Source of Specimen: A: Imaged ThinPrep Pap - Cervical (1 monolayer slide) HPV Reflex?........... ...........HPV if ASCUS Clinical History Postmenopausal Z01.419 Routine aba tutor exam without abnormal findings LMP: 01/16/2018 Processing Lab: [address] [address] Interpretation performed at [facility], [address] [place] [address], [place] [address] This Pap Test has been evaluated with the assistance of the PoeticaPrep Pap Test Imaging System. The Pap smear is a screening test primarily for squamous epithelial lesions, which is subject to both false negative and false positive results. Your patient should be reminded to consult you immediately if she experiences any suspicious signs or symptoms, regardless of her Pap smear result. GYNECOLOGIC CYTOLOGY REPORT Patient Name: [facility] Rec: [id number] [facility] [employer] [facility] ANATOMIC PATHOLOGY [address] [place] [address]. [place], [place] [address] [facility] [employer] CERVICAL MATERIAL 10/23/2024 025 8:17 AM EDT Arden Mack MD PATHOLOGY/CYTOLOGY ORDERABLES Final Result [facility] [address] [place] [address], [facility] [phone] [facility] [employer] * PHANI Screening Bilateral (10/12/2022) Anatomical Region Laterality Modality Breast Bilateral Mammography Arden Mack MD IMG MAMMOGRAPHY ORDERABLES Fi nal Result * Lipid Panel (12/10/2019) Cholesterol, Total 151 mg/dL HDL 49 35 - 70 mg/dL LDL Calculated 94 0 - 160 mg/dL Triglycerides 54 mg/dL Chol/HDL Ratio VLDL 11 mg/dL BLOOD SPECIMEN / Unknown 12/10/2019 Adia Abdullahi MD CHEMISTRY ORDERABLES Edit ed Result - Final * Basic Metabolic Panel, Fasting (01/16/2018 7:41 AM EDT) Glucose, Fasting 97 70 - 99 mg/dL 01/16/2018 8:22 AM EDT [facility] BUN 13 6 - 20 mg/dL 01/16/2018 8:22 AM EDT [facility] Creatinine 0.85 0.50 - 0.90 mg/dL 01/16/2018 8:22 AM [facility] BUN/Creatinine Ratio 15 9 - 20 01/16/2018 8:22 AM [facility] Calcium 9.4 8.6 - 10.4 mg/dL 01/16/2018 8:22 AM [facility] Sodium 138 135 - 144 mmol/L 01/16/2018 8:22 AM [facility] Potassium 3.8 3.7 - 5.3 mmol/L 01/16/2018 8:22 AM [facility] Chloride 101 98 - 107 mmol/L 01/16/2018 8:22 AM [facility] CO2 28 20 - 31 mmol/L 01/16/2018 8:22 AM [facility] Anion Gap 9 9 - 17 mmol/L 01/16/2018 8:22 AM [facility] GFR Non- >60 >60 mL/min 01/16/2018 8:22 AM [facility] GFR >60 >60 mL/min 01/16/2018 8:22 AM [facility] GFR Comment 01/16/2018 8:22 AM [facility] Comment: Average GFR for 40-49 years old: 99 mL/min/1.73sq m Chronic Kidney Disease: <60 mL/min/1.73sq m Kidney failure: <15 mL/min/1.73sq m eGFR calculated using average adult body mass. Additional eGFR calculator available at: http://www.[employer]/multiple_crcl_2012.htm GFR Staging 01/16/2018 8:22 AM [facility] Comment: Stage 1: Some kidney damage normal GFR Stage 2: Mild kidney damage GFR 60-89 Stage 3: Moderate kidney damage GFR 30-59 Stage 4: Severe kidney damage GFR 15-29 Stage 5: Severe kidney damage GFR <15 ESRD - chronic treatment by dialysis or transplant BLOOD SPECIMEN / Unknown 01/16/2018 7:41 AM EDT 01/16/2018 7:42 AM EDT us Wally Lala MD CHEMISTRY ORDERABLES Final Result [facility] [address] [place] [address], [facility] [phone] from Last 3 Months or Most Recently Relevant to Health Maintenance Insurance Member Subscriber Plan / Payer (Ef fective 2020-Present) Name:Marion Mejia Yamilet Relation to Subscriber:Self Name:Marion Mejia Payer ID:Not on file Type:Not on file Address: [address] DUAL COMPLETE Advance Directives * Full Code (Latest Code Status on File) Date Activated Date Inactivated Comments 04/03/2021 9:58 AM 04/03/2021 4:02 PM * Full Code Date Activated Date Inactivated Comments 07/18/2020 9:40 AM 07/18/2020 4:19 PM Care Teams Ultrasound Technol Relationship Specialty Start Date End Date Sia Thompson APRN - RING MAKING MACHINE OPERATOR [address] [place] [id number] PCP - General 12/05/20
--- OUTSIDE RECORDS SUMMARY | 2024-12-16 17:50 | XMS_ITS | Patient Health Record ---
Author Organization [facility] Address [address] [place] [address] Care Team Providers Care Database Marketing Manager Name Role Phone Chrissie Issa Primary Care Provider Jeremie Martínez Unavailable [phone] Allergies Allergen (clinical drug ingredient) Drug/Non Drug Allergy documented on EMR Reaction Allergy Type Onset Date Status tramadol Tramadol Unknown Drug Allergy Active Reason For Referral No Information Problems Problem Type SNOMED Code ICD Code Onset Dates Problem Status W/U Status Risk Notes Problem Anxiety (28247171) Anxiety (F41.9) Active confirmed Problem Persistent depressive disorder (5462035710) Persistent depressive disorder (F34.1) Active confirmed Plan Of Treatment No Information Insurance Providers Payer Name Payer Address Payer Phone Subscriber Number Group Number Insured Name Patient Relationship to Insured Coverage Start Date Coverage End Date [facility] [address] [place] [address] [id number] DASHA WRIGHT Self - patient is the insured 3 [employer] [facility] [address] [place] [id number] [phone] [id number] DASHA WRIGHT Self - patient is the insured 3 [facility] Medicaid- termed 22 [address] [place] [id number] DASHA WRIGHT Self - patient is the insured 1 3 [employer] MEDICAID [employer] BCBS-term ed 22 [address] [place] [address] [id number] DASHA WRIGHT Self - patient is the insured 1 3 [facility] [address] [place] [address] [id number] DASHA WRIGHT Self - patient is the insured 7
--- OUTSIDE RECORDS SUMMARY | 2024-12-16 17:50 | XMS_ITS | CCD ---
Author Organization [facility] Care Team Providers [place] Weighmaster Name Role Phone Wally Lalain Primary Care Provider Talha Sanchez Primary Care Provider [phone] Sia Villalba APRN, NP Primary Care Provider SIA THOMPSON Primary Care Unavailable HIREN MÁRQUEZA Referring Unavailable CLEOPATRA PAYAN Referring Unavailable DONNA, SIA R Primary Care Unavailable CLEOPATRA PAYAN Referring Unavailable DONNA, SIA R Primary Care Unavailable KATIE, ROSALIO S Referring Unavailable SCHWLACIER, TALHA Primary Care Unavailable CLEOPATRA PAYAN Admitting Unavailable JARODK, SIA R Primary Care Unavailable CLEOPATRA PAYAN Attending Unavailable CLEOPATRA PAYAN Attending Unavailable CLEOPATRA PAYAN Admitting Unavailable KLSALASK, SIA R Primary Care Unavailable CLEOPATRA PAYAN Admitting Unavailable CLEOPATRA PAYAN Attending Unavailable DONNA, SIA R Primary Care Unavailable KATIE, ROSALIO S Referring Unavailable SCHWLACIER, TALHA Primary Care Unavailable DONNA, SIA R Primary Care Unavailable WILLI JOSEPHINE Referring Unavailable Aiden Thompsonley R Primary Care Physician Ariel Mckeon Unavailable MD Ariel Mckeon Attending Provider [phone] NO FAMILY, PHYSICIAN Primary Care Provider Unava ilable MARCELINO Thompson Primary Care Provider MD Ariel Mckeon Attending Provider MARCELINO Thompson Primary Care Provider MARCELINO Thompson Primary Care Provider MD Ariel Mckeon Attending Provider [phone] MARCELINO Thompson Attending Provider [phone] MARCELINO Thompson Primary Care Provider MD Ariel Mckeon Attending Provider MARCELINO Thompson Attending Provider Hannah Nelson Unavailable MARCELINO Thompson Primary Care Provider MD Ariel Mckeon Attending Provider [phone] Sury Mohr Unavailable MARCELINO Thompson Primary Care Provider MARCELINO Thompson Attending Provider MD Ariel Mckeon Attending Provider Ellie Ritchie Unavailable MARCELINO Thompson Primary Care Provider MD Ariel Mckeon Attending Provider Macarioxa, Ariel Admitting Unavailable Olexa, Ariel Attending Unavailable Klonk, Sia R Primary Care Unavailable Klonk, Sia R Admitting Unavailable Klonk, Sia R Attending Unavailable Brianonk, Sia R Primary Care Unavailable Olexa, Ariel Attending Unavailable Brianonk, Sia R Primary Care Unavailable Olexa, Ariel Admitting Unavailable Olexa, Ariel Attending Unavailable Klonk, Sia R Primary Care Unavailable Olexa, Ariel Admitting Unavailable Olexa, Ariel Attending Unavailable Olexa, Ariel Admitting Unavailable Klonk, Sia R Primary Care Unavailable Olexa, Ariel Attending Unavailable Olexa, Ariel Admitting Unavailable Klonk, Sia R Primary Care Unavailable Olexa, Ariel Attending Unavailable Brianonk, Sia R Primary Care Unavailable Olexa, Ariel Admitting Unavailable Olexa, Ariel Admitting Unavailable Olexa, Ariel Attending Unavailable Klonk, Sia R Primary Care Unavailable Olexa, Ariel Attending Unavailable Olexa, Ariel Admitting Unavailable Klonk, Sia R Primary Care Unavailable Olexa, Ariel Admitting Unavailable Olexa, Ariel Attending Unavailable Klonk, Sia R Primary Care Unavailable Olexa, Ariel Attending Unavailable Sia Thompson Primary Care Unavailable Olexa, Ariel Admitting Unavailable Olexa, Ariel Admitting Unavailable Olexa, Ariel Attending Unavailable Sia Thompson Primary Care Unavailable Olexa, Ariel Admitting Unavailable Olexa, Ariel Attending Unavailable Sia Thompson Primary Care Unavailable PATO, MELANY A Primary Care Physician KEMI FERNANDEZ Attending Unavailable PATO, MELANY A Primary Care Physician [phone] Donna PROCESS EXPERT - SPANISH LECTURER, Sia Garland Primary Care Provider MAGALY MACK Referring Unavailable SIA THOMPSON Primary Care Unavailable PATO, MELANY A Attending Unavailable PATO, MELANY A Attending Unavailable PATO, MELANY A Attending Unavailable PATO, MELANY A Attending Unavailable PATO, MELANY A Admitting Unavailable PATO, MELANY A Attending Unavailable PATO, MELANY A Admitting Unavailable PATO, MELANY A Attending Unavailable NILLKvng R Attending Unavailable PATO, MELANY A Referring Unavailable PATO, MELANY A Attending Unavailable PATO, MELANY A Attending Unavailable PATO, MELANY A Attending Unavailable PATO, MELANY A Attending Unavailable PATO, MELANY A Attending Unavailable PATO, MELANY A Attending Unavailable PATO, MELANY A Attending Unavailable PATO, MELANY A Attending Unavailable PATO, MELANY A Attending Unavailable PATO, MELANY A Attending Unavailable PATO, MELANY A Admitting Unavailable PATO, MELANY A Attending Unavailable NILLKvng R Attending Unavailable PATO, MELANY A Attending Unavailable PATO, MELANY A Attending Unavailable PATO, MELANY A Admitting Unavailable PATO, MELANY A Attending Unavailable PATO, MELANY A Referring Unavailable Allergies Allergy Classification Reported Allergen(s) Allergy Type Date of Onset Reaction(s) Facility Opioid Agonists (8 sources) traMADol; Translations: [tramadol] Drug Allergy 07-18-19 21 [facility]achy[facility] (finding), [facility]) traMADol; Translations: [tramadol] Drug Allergy 07-18-19 21 Other (See Comments), Tachycardia (finding), Nausea (finding) [facility] (5 sources) liraglutide; Translations: [liraglutide] Drug Allergy 08-11-19 Gastrointestinal Upset [facility] (1 source) traMADol Drug Allergy 08-26-19 [facility] (2 sources) No Known Medication Allergies; Translations: [No Known Medication Allergies] Propensity to adverse reactions (disorder) [facility] Rep[facility] Medications Current Medications Medication Drug Class(es) Dates Sig (Normalized) Sig (Original) acetaminophen 325 mg / HYDROcodone bitartrate 5 mg oral tablet (14 sources) Opioid Agonist Start: 08-23-2022 take 1 tablet by mouth every four hours as needed for pain HYDROcodone-Aceta minophen 5-325 MG 1 tablet as needed for pain Orally up to every 4 hrs for 5 days ROSENDO: [id number] Jul, Active Start: 04-03-2021 End: 04-06-2021 take [...] every 4 hrs for 5 days ROSENDO: [id number] Mar, Active Start: 07-18-2020 End: 07-23-2020 take [...] Advair Diskus 25 0-50 MCG/DOSE Inhalation Active [id number] 200 actuat albuterol 0.09 mg/actuat metered dose inhaler (20 sources) beta2-Adrenergic Agonist Start: 03-18-2022 Albut ricci Sulfate (Ventolin Hfa) 90 mcg/actuation HFA aerosol inhaler Active 1 - 2 PUFF INHALATION As Directed March 18, 2022 12:00am take 1 puff(s) by [facility] every four hours as needed for wheezing albuterol sulfate HFA (PROVENTIL;VENTOLI N;PROAIR) 108 (90 Base) MCG/ACT inhaler INHALE 1 PUFF BY MOUTH EVERY 4 HOURS NEEDED FOR WHEEZING OR SHORTNESS OF BREATH Active Ventolin HFA Act la nena 24 hr [...] Daily, # 90 tab(s), Refills(s) 2, Pharmacy: [facility] #[id number], 160, cm, 05/11/21 11:40:00 EST, Height/Length Dosing, [...] gm, Topical, QID, 100 gm, Refill(s) 2, [facility] #[id number], 160, cm, 08/17/23 9:37:00 EST, Height/Length Dosing, 90.4, kg, 08/17/23 9:37:00 EST, Weight Dosing Start Date: 09/01/23 Status: Ordered Start: 04-20-2022 apply 2 g topically four times daily Voltaren Arthritis Pain 1% topical gel 2 gm, Topical, QID, 100 gm, Refill(s) 6, [id number], 160, cm, 04/20/22 9:20:00 EDT, Height/Length Dosing, 97.5, kg, 04/20/22 9:20:00 EDT, Weight Dosing Start Date: 04/20/22 Status: Ordered Start: 03-18-2022 Diclofenac Sod ium Active 2 GM TOPICAL As Directed March 18, 2022 12:00am Start: 05-11-2021 apply 2 g topically four times daily Voltaren Arthritis Pain 1% topical gel 2 gm, Topical, QID, 100 gm, Refill(s) 6, [facility] #[id number], 160, cm, 05/11/21 11:40:00 EST, Height/Length Dosing, [...] 12-12-2020 fentaNYL (SUBL IMAZE) injection 50 mcg fluticasone (1 source) Corticosteroid Start: 08-01-2024 FLUTICASONE FUROATE IN Inhale into the lungs 08/01/2024 Active Handicap placard (10 sources) Start: 08-24-[address] Handicap placard, See Instructions, 1 EA, 0, Use as directed. Expiration 5 years, Supply Start Date: 08/24/22 Status: Ordered ibuprofen 800 mg oral tablet (20 sources) Nonsteroidal Anti-inflammatory Drug Start: 10-13-2024 take 1 tablet by mouth three times daily ibuprofen (ADVIL;MOTRIN) 800 MG tablet Take 1 tablet by mouth 3 times daily 10/13/2024 Active Start: 09-14-2023 take 1 tablet by alicia th three times daily ibuprofen 800 mg Tab 800 mg = 1 tab(s), Oral, TID, # 90 tab(s), Refills(s) 1, Pharmacy: [facility] #[id number], 160, cm, 09/14/23 9:28:00 EDT, Height/Length Dosing, [...] q12hr, # 30 tab(s), Refills(s) 5, Pharmacy: [facility] #[id number], 160, cm, 12/09/21 13:46:00 EDT, Height/Length Dosing, [...] day(s), # 56 tab(s), Refills(s) 0, Pharmacy: [facility] #[id number], 160, cm, 04/20/22 9:20:00 EDT, Height/Length Dosing, 97.5, kg, 04/20/22 9:20:00 EDT, Weight Dosing Start Date: 07/02/22 Stop Date: 07/09/22 Status: Ordered take 2 tablets by [facility] four times daily methocarbamol (ROBAXIN) 500 MG tablet Ta ke 1,000 mg by mouth 4 times daily 0 Active methylPREDNISolone 4 mg oral tablet (1 source) Corticosteroid Start: 08-12-2022 End: 08-18-2022 Medrol 4 mg Tab = 1 packet(s), Oral, As Directed, as directed on package labeling, X 6 day(s), # 21 tab(s), Refills(s) 0, Pharmacy: [facility] #[id number], 160, cm, 08/12/22 8:36:00 EST, Height/Length Dosing, [...] 1:00am Start: 02-09-2021 take 1 tablet by [facility] once daily in the evening Singulair 10 mg Tab 10 mg = 1 tab(s), Oral, qPM, # 30 tab(s), Refills(s) 3, Pharmacy: [facility] #[id number], 160, cm, 01/15/21 9:59:00 EDT, Height/Length Dosing, 100.5, kg, 01/15/21 9:59:00 EDT, Weight Dosing Start Date: 02/09/21 Status: Ordered omeprazole 20 mg delayed release oral capsule (6 sources) Proton Pump Inhibitor Start: 03-18-2022 take 1 capsule by mouth once daily omeprazole 20 mg Cap-DR 20 mg = 1 cap(s), Oral, Daily, # 30 cap(s), Refills(s) 6, Pharmacy: [facility] #[id number], 160, cm, 12/09/21 13:46:00 EDT, Height/Length Dosing, 99.4, kg, 12/09/21 13:46:00 EDT, Weight Dosing Start Date: 03/18/22 Status: Ordered Start: 08-13-2021 take 1 capsule by [facility] once daily omeprazole 20 mg Cap-DR 20 mg = 1 cap(s), Oral, Daily, # 30 cap(s), Refills(s) 6, Pharmacy: [facility] #[id number], 160, cm, 08/13/21 10:11:00 EST, Height/Length Dosing, 109, kg, 08/13/21 10:11:00 EST, Weight Dosing Start Date: 08/13/21 Status: Ordered omeprazole 20 mg Cap-DR (1 source) Start: 08-13-2021 take 1 capsule by mouth once daily omeprazole 20 mg Cap-DR 20 mg = 1 cap(s), Oral, Daily, # 30 cap(s), Refills(s) 6, Pharmacy: [facility] #[id number], 160, cm, 08/13/21 10:11:00 EST, Height/Length Dosing, 109, kg, 08/13/21 10:11:00 EST, Weight Dosing Start Date: 08/13/21 Status: Ordered 2 ml ondansetron 2 mg/ml injection (1 source) Serotonin-3 Receptor Antagonist Start: 02-18-2021 End: 02-18-2021 4 mg, IntraVENous, ONCE PRN, Nausea, Starting on Tue02/18/21 at 1449, For 1 dose Initial antiemetic therapy. PACU only phentermine hydrochloride 37.5 mg oral tablet (18 sources) Sympathomimetic Amine Anorectic Start: 09-27-2024 take 1 tablet by mouth once daily phentermine (ADIPEX-P) 37.5 MG tablet Take 1 tablet by mouth daily. 09/27/2024 Active Start: 12-07-2023 take 1 tablet by [facility] once daily Adipex-P 37.5 mg Tab 37.5 mg = 1 tab(s), Oral, Daily, # 30 tab(s), Refills(s) 0, Pharmacy: [facility] #[id number], 161, cm, 12/07/23 8:10:00 EDT, Height/Length Dosing, 88.5, kg, 12/07/23 8:10:00 EDT, Weight Dosing Start Date: 12/07/23 Status: Ordered Start: 06-21-2023 take 1 capsule by [facility] once daily Adipex-P 37.5 mg oral capsule 37.5 mg = 1 cap(s), Oral, Daily, # 30 cap(s), Refills(s) 0, Pharmacy: [facility] #[id number], 160, cm, 06/21/23 9:10:00 EST, Height/Length Dosing, 92.4, kg, 06/21/23 9:10:00 EST, Weight Dosing Start Date: 06/21/23 Status: Ordered Start: 05-30-2023 take 1 capsule by [facility] once daily Adipex-P 37.5 mg oral capsule 37.5 mg = 1 cap(s), Oral, Daily, # 30 cap(s), Refills(s) 0, Pharmacy: [facility] #[id number], 160, cm, 05/30/23 8:26:00 EST, Height/Length Dosing, 92.6, kg, 05/30/23 8:26:00 EST, Weight Dosing Start Date: 05/30/23 Status: Ordered Start: 05-02-2023 take 1 capsule by [facility] once daily Adipex-P 37.5 mg oral capsule 37.5 mg = 1 cap(s), Oral, Daily, # 30 cap(s), Refills(s) 0, Pharmacy: [facility] #[id number], 160, cm, 05/02/23 10:34:00 EST, Height/Length Dosing, 97.3, kg, 05/02/23 10:34:00 EST, Weight Dosing Start Date: 05/02/23 Status: Ordered Start: 10-12-2021 take 1 tablet by [facility] once daily Adipex-P 37.5 mg Tab 37.5 mg = 1 tab(s), Oral, Daily, # 30 tab(s), Refills(s) 0, Pharmacy: [facility] #[id number], 160, cm, 10/12/21 11:04:00 EDT, Height/Length Dosing, [...] Bedtime, # 30 tab(s), Refills(s) 5, Pharmacy: [facility] #[id number], 160, cm, 08/12/22 8:36:00 EST, Height/Length Dosing, 96, kg, 08/12/22 8:36:00 EST, Weight Dosing Start Date: 09/03/22 Status: Ordered sertraline 50 mg oral tablet (20 sources) Serotonin Reuptake Inhibitor Start: 06-21-2023 take 1 tablet by mouth once daily sertraline 50 mg Tab 50 mg = 1 tab(s), Oral, Daily, # 30 tab(s), Refills(s) 1, Pharmacy: [facility] #[id number], 160, cm, 06/21/23 9:10:00 EST, Height/Length Dosing, 92.4, kg, 06/21/23 9:10:00 EST, Weight Dosing Start Date: 06/21/23 Status: Ordered Start: 05-02-2023 take 1 tablet by alicia th once daily Zoloft 25 mg Tab 25 mg = 1 tab(s), Oral, Daily, # 90 tab(s), Refills(s) 0, Pharmacy: [facility] #[id number], 160, cm, 05/02/23 10:34:00 EST, Height/Length Dosing, 97.3, kg, 05/02/23 10:34:00 EST, Weight Dosing Start Date: 05/02/23 Status: Ordered Start: 03-18-2022 Zoloft 100 mg Tab 150 mg = 1.5 tab(s), Oral, Daily, # 45 tab(s), Refills(s) 2, Pharmacy: [facility] #[id number], 160, cm, 12/09/21 13:46:00 EDT, Height/Length Dosing, 99.4, kg, 12/09/21 13:46:00 EDT, Weight Dosing Start Date: 03/18/22 Status: Ordered Start: 03-18-2022 take 150 mg by mouth once daily Sertraline Active 150 MG PO Daily March 18, 2022 12:00am Start: 08-27-2021 Zoloft 100 mg Tab 150 mg = 1.5 tab(s), Oral, Daily, # 45 tab(s), Refills(s) 2, Pharmacy: [facility] #[id number], 160, cm, 08/13/21 10:11:00 EST, Height/Length Dosing, [...] Pain 1% topical gel (1 source) Start: apply 2 g topically four times daily Voltaren Arthritis Pain 1% topical gel 2 gm, Topical, QID, 100 gm, Refill(s) 6, [facility] #[id number], 160, cm, 05/11/21 11:40:00 EST, Height/Length Dosing, [...] wheezing/shortness of breath, 1 EA, Refill(s) 6, [facility] #[id number], 160, cm, 08/17/23 9:37:00 EST, Height/Length Dosing, 90.4, kg, 08/17/23 9:37:00 EST, Weight Dosing Start Date: 09/01/23 Status: Ordered Start: 10-27-2022 take 1 dose by inhal ation every four hours albuterol HFA 90 mcg/inh MDI 1 puff(s), Inhalation, q4hr for wheezing/shortness of breath, 1 EA, Refill(s) 6, [facility] #[id number], 160, cm, 08/12/22 8:36:00 EST, Height/Length Dosing, 96, kg, 08/12/22 8:36:00 EST, Weight Dosing Start Date: 10/27/22 Status: Ordered Start: 05-06-2022 take 1 dose by inhal ation every four hours albuterol HFA 90 mcg/inh MDI 1 puff(s), Inhalation, q4hr for wheezing/shortness of breath, 1 EA, Refill(s) 6, [facility] #[id number], 160, cm, 04/20/22 9:20:00 EDT, Height/Length Dosing, 97.5, kg, 04/20/22 9:20:00 EDT, Weight Dosing Start Date: 05/06/22 Status: Ordered Start: 03-12-2022 take 1 dose by inhal ation every four hours albuterol HFA 90 mcg/inh MDI 1 puff(s), Inhalation, q4hr for wheezing/shortness of breath, 1 EA, Refill(s) 2, [facility] #[id number], 160, cm, 12/09/21 13:46:00 EDT, Height/Length Dosing, 99.4, kg, 12/09/21 13:46:00 EDT, Weight Dosing Start Date: 03/12/22 Status: Ordered Start: 01-21-2021 take 1 dose by inhal ation every four hours albuterol HFA 90 mcg/inh MDI 1 puff(s), Inhalation, q4hr for wheezing/shortness of breath, 1 EA, Refill(s) 2, [facility] #[id number], 160, cm, 01/15/21 9:59:00 EDT, Height/Length Dosing, [...] day(s), # 60 tab(s), Refills(s) 2, [id number], 160, cm, 12/09/21 13:46:00 EDT, Height/Length Dosing, [...] mg Durolane (4 sources) Start: 12-27-2022 Durolane 03 2022 60 mg Start: 12-27-2022 fluticasone / salmeterol (20 sources) Corticosteroid, beta2-Adrenergic Agonist Start: 10-28-2023 take 1 puff(s) by mouth twice daily Advair Diskus 250 mcg-50 mcg inhalation powder See Instructions, 60 blister(s), Refill(s) 4, Inhale 1 puff by mouth twice daily. Rinse mouth and throat after use, [facility] #[id number], 161, cm, 10/12/23 8:32:00 EDT, Height/Length Dosing, 91.2, kg, 10/12/23 8:32:00 EDT, Weight Dosing Start Date: 10/28/23 Status: Ordered Start: 10-01-2022 take 1 puff(s) by [facility] twice daily Advair Diskus 250 mcg-50 mcg inhalation powder See Instructions, 60 blister(s), Refill(s) 4, Inhale 1 puff by mouth twice daily. Rinse mouth and throat after use, [facility] #[id number], 160, cm, 08/12/22 8:36:00 EST, Height/Length Dosing, 96, kg, 08/12/22 8:36:00 EST, Weight Dosing Start Date: 10/01/22 Status: Ordered Start: 05-06-2022 take 1 puff(s) by [facility] twice daily Advair 250 mcg-50 mcg Powder See Instructions, 60 blister(s), Refill(s) 4, 1 puff BID rinse mouth and throat after use, [facility] #[id number], 160, cm, 04/20/22 9:20:00 EDT, Height/Length Dosing, 97.5, kg, 04/20/22 9:20:00 EDT, Weight Dosing Start Date: 05/06/22 Status: Ordered Start: 03-22-2022 take 1 puff(s) by [facility] twice daily Advair 250 mcg-50 mcg Powder See Instructions, 60 blister(s), Refill(s) 4, 1 puff BID rinse mouth and throat after use, [facility] #[id number], 160, cm, 12/09/21 13:46:00 EDT, Height/Length Dosing, 99.4, kg, 12/09/21 13:46:00 EDT, Weight Dosing Start Date: 03/22/22 Status: Ordered Start: 03-18-2022 Fluticasone Pr opion-Salmeterol (Advair Diskus) 250-50 mcg/dose blister with device Active 1 INH INHALATION Twice daily March 17, 2022 11:00pm Start: 03-18-2022 Fluticasone Pr opion-Salmeterol (Advair Diskus) 250-50 mcg/dose blister with device Active 1 INH INHALATION Twice daily March 18, 2022 12:00am Start: 12-15-2020 take 1 puff(s) by [facility] twice daily Advair 250 mcg-50 mcg Powder See Instructions, 60 blister(s), Refill(s) 4, 1 puff BID rinse mouth and throat after use, [facility] #[id number], 160, cm, 12/15/20 9:17:00 EDT, Height/Length Dosing, [...] 10:15am Start: 09-10-2021 [facility] (MOBIC) 15 MG tablet TAKE 1 TABLET BY MOUTH DAILY 0 09/10/2021 Active Peg 772-Pzvlcwlbyihq-Ygofoxo n (Eye Drop Tears) 1-0.2-0.2 % Drops (9 sources) Start: 03-22-2022 End: 08-11-2022 Peg 153-Oncytqnypsmy-Mjdsgbo n (Eye Drop Tears) 1-0.2-0.2 % Drops Discontinued 1 - 2 DROPS EYE-BOTH As Directed March 22, 2022 12:00am August 11, 2022 11:58am Start: 03-22-2022 End: 08-11-2022 Peg 781-Llcleeuzcltx-Pshzedw n (Eye Drop Tears) 1-0.2-0.2 % Drops [...] days, # 30 tab(s), Refills(s) 0, Pharmacy: [facility] #[id number], 161, cm, 10/12/23 8:32:00 EDT, Height/Length Dosing, 91.2, kg, 10/12/23 8:32:00 EDT, Weight Dosing Start Date: 10/12/23 Status: Ordered Start: 04-18-2023 predniSONE Ref ills(s) 0 Start Date: 04/18/23 Status: Ordered triamcinolone acetonide 40 mg/ml injectable suspension (20 sources) Corticosteroid Start: 01-07-2022 Kenalog-40 May, 40 mg Start: 01-07-2022 Problems Active Problems Problem Classification Problem Date Documented Date Episodic/Chronic Anxiety disorders (20 sources) Generalized anxiety disorder; Translations: [Generalized anxiety disorder] Onset: 04-20-2022 06-03-2020 Chronic Asthma (20 sources) Moderate persistent asthma; Translations: [Uncomplicated moderate persistent asthma] Onset: 08-24-2016 Resolved: 05-16-2018 05-16-2018 Chronic Coma; stupor; and brain damage (13 sources) Excessive daytime sleepiness - normal night sleep; Translations: [Somnolence] Episodic Esophageal disorders (18 sources) Gastroesophageal reflux disease 08-13-2021 Chronic Essential [...] current use of drug therapy; Translations: [Other snf (current) drug therapy] Onset: 05-02-2023 Episodic Other [...] sources) Snoring Episodic Other nervous system disorders (6 sources) Carpal tunnel syndrome of left wrist; [...] Chronic Other nutritional; endocrine; and metabolic disorders (12 sources) Morbid obesity; Translations: [Morbid (severe) obesity due to excess calories] Onset: 04-28-2023 Chronic Comment on above: Added per 03/10/2023 query response from Lucy Schumacher, per outpatient [facility] policy. Other nutritional; endocrine; and metabolic disorders (1 source) Severe obesity 10-24-2024 Chronic Other screening for suspected conditions (not mental disorders or infectious disease) (12 sources) Endometrium thickened 01-17-2020 Chronic Other screening for suspected conditions (not mental disorders or infectious disease) (1 source) Screening for malignant neoplasm of colon done; Translations: [Encounter for screening for malignant neoplasm of colon] Onset: 11-13-2024 Episodic Residual codes; unclassified (18 sources) Difficulty sleeping 07-01-2020 Episodic Residual codes; unclassified (17 sources) Chronic back pain 12-09-2021 Episodic Residual codes; unclassified (9 sources) Other specified postprocedural states Episodic Residual codes; unclassified (2 sources) Past history of procedure; Translations: [Other specified postprocedural states] Onset: 04-20-2022 Episodic Spondylosis; intervertebral disc disorders; other back problems (20 sources) Sciatica; Translations: [Backache] Onset: 12-09-2021 03-06-2021 Episodic Superficial injury; contusion (1 source) Contusion of left knee, initial encounter Episodic Unclassified (17 sources) Patient encounter status; Translations: [Encounter for [...] [Pain in left knee] Onset: 05-10-2022 Episodic Residual codes; unclassified (20 sources) Patient encounter status; Translations: [Encounter for cosmetic surgery] Onset: 10-19-2017 Resolved: 05-16-2018 05-16-2018 Episodic Results Test Name Value Interpretation Reference Range Facil ity Ambulatory Visit Summaryon 0 11-21-2024 Ambulatory Visit Summary Ambulatory Visit Summary DASHA MEJIA :1970 Visit Date:11/21/2024 Ambulatory Visit Instructions Your Diagnosis Encounter for weight management Your Care Team Attending Physician - MELANY SCHUMACHER CNP Primary Care Physician - MELANY SCHUMACHER CNP This Is Your Medications List phentermine (Adipex-P 37.5 mg Tab) Contact prescribing physician if questions or concerns Misc Prescription (Handicap placard) Misc Prescription (lift chair) albuterol (Albuterol (Eqv-Proventil HFA) 90 mcg/inh inhalation aerosol) diclofenac topical (Voltaren Arthritis Pain 1% topical gel) fluticasone-salmeter ol (Wixela Inhub 250 mcg-50 mcg inhalation powder) ibuprofen (ibuprofen 800 mg Tab) Procedures Performed Tear of biceps tendon (11/24/2018), Appendectomy, Bilateral tubal ligation, Meniscectomy of knee, Release of tendon of hand, Rotator cuff, Rotator cuff, Tonsillectomy. Discharge Vitals Temperature (Oral) 36.4 ???C Heart Rate (Peripheral) 76 Respiratory Rate 18 Blood Pressure 124/84 Height 161.0 cm Height 63 in Weight 89.7 kg Weight 197.754 lb BMI 34.61 What to do next Scheduled Follow-Up Appointments Tuesday 9:00 AM EDT With: MELANY SCHUMACHER CNP Where: [address] [id number] 9:30 AM EDT With: Where: [address] [address]- Medications What How Much When Why Instructions Changed phentermine (Adipex-P 37.5 mg Tab) 1 Tablets By Mouth Every day Encounter for weight management BMI 37.0-37.9, adult Exogenous obesity Pickup at [facility]/pharmacy #[id number] Unchanged albuterol (Albuterol (Eqv-Proventil HFA) 90 mcg/ inh inhalation aerosol) See instructions INHALE 1 PUFF BY MOUTH EVERY 4 HOURS NEEDED FOR WHEEZING OR SHORTNESS OF BREATH Contact prescribing physician if questions or concerns Unchanged diclofenac topical (Voltaren Arthritis Pain 1% topical gel) 2 Gram Topical 4 times a day Arthritis Contact prescribing physician if questions or concerns Unchanged fluticasone-salmeter ol (Wixela Inhub 250 mcg-50 mcg inhalation powder) See instructions INHALE 1 PUFF BY MOUTH TWICE DAILY. RINSE MOUTH AND THROAT AFTER USE Contact prescribing physician if questions or concerns Unchanged ibuprofen (ibuprofen 800 mg Tab) See instructions TAKE 1 TABLET BY MOUTH THREE TIMES DAILY Contact prescribing physician if questions or concerns Unchanged Misc Prescription (Handicap placard) See instructions Use as directed. Expiration 5 years Contact prescribing physician if questions or concerns Unchanged Misc Prescription (lift chair) See instructions Osteoarthritis Chronic back pain History of rotator cuff surgery Other chronic pain Lift Chair Contact prescribing physician if questions or concerns Pharmacy Information [facility]/pharmacy #[id number]: [address], [place] [id number] [phone] Allergies traMADol (Tachycardia, Nausea) Problems Ongoing - Any problem that you are currently receiving treatment for. Anxiety, generalized Carpal tunnel syndrome of left wrist Chronic back pain GERD (gastroesophageal reflux disease) Hypertension Major depressive disorder, single episode in full remission Mild persistent asthma Obesity due to excess calories Sciatica Screening for malignant neoplasm of colon Severe obesity with body mass index (BMI) of 35.0 to 39.9 with comorbidity Sleep difficulties Historical - Any problem that [...] you for choosing us for your care. Normal Jah [facility] Family Medicine Office/Clini c Noteon 11-21-2024 Family Medicine Office/Clinic Note Family Medicine Office/Clinic Note Chief Complaint The patient seeks assistance with weight management and maintaining balance in her lifestyle. HPI Staff Dasha is a 54 year old female presenting with 4 week f/u Weight management Adipex Sleeping well:Yes, 6-8 hours Chest pain:No Tremors:No Headaches:No Heart fluttering:No Blurred Vision:No Starting Weight: 214.73 lbs Weight last visit: 198.41 lbs. Weight this visit: 197.8 ls Med agreement UTD 08/29/24 Drug screen UTD- 08/29/24 she just got back from vacation from Tuesday night Refills on Adipex History of Present Illness 54-year-old female presenting with concerns related to weight management. Over the past three months, she has experienced a fluctuation in her weight, noting a decrease of 16.93 pounds over the last three months. This fluctuation has been associated with challenges in maintaining dietary balance, particularly during periods of travel and social gatherings. She reports forgetting her medication during a recent vacation but has been conscious of her food choices, such as removing chicken skin to manage fat intake. Despite the challenges, she has managed to lose about a pound over the last 4 weeks, indicating some success in her efforts. The patient highlights the difficulty of adhering to her dietary regimen during family events, where celebratory foods are prevalent. Nonetheless, she remains committed to moderation and plans to incorporate more physical activity into her routine, including cycling with her grandchildren. Her motivation to maintain a balanced lifestyle is evident, and she recognizes the importance of exercise and dietary moderation in achieving her weight management goals. Review of Systems PHQ Score Initial Depression Screen Score: 2 SCORE - General: Reports fluctuations in weight. - Musculoskeletal: Denies significant balance issues or falls. - Psychiatric: Reports stress related to maintaining dietary balance during social events. Physical Exam Vitals & Measurements T: 36.4 ???C(Oral) HR: 76(Peripheral) RR: 18 BP: 124/84 SpO2: 100% HT: 161.0 cm HT: 63 in WT: 89.7 kg WT: 197.754 lb BMI: 34.61 General: alert, no acute distress Cardiovascular: regular rate and rhythm, normal peripheral perfusion Respiratory: Lungs CTA, respirations non labored Extremities: no deformity, no trauma Neurological: oriented x 4, LOC appropriate for age speech normal Assessment/Plan 1. Encounter for weight management (Z76.89: Persons encountering health services in other specified circumstances) - Reinforced dietary moderation and regular physical activity for effective weight management. - Highlighted the significance of adherence to medication and discussed strategies to remember it during travel. - Encouraged continued engagement in physical activities like cycling. - Planned follow-up to assess progress and modify the management plan as needed. - OARRS reviewed and found to be appropriate - F/U in 4 weeks Ordered: phentermine, 37.5 mg = 1 tab(s), Oral, Daily, # 30 tab(s), Refills(s) 0, Pharmacy: [facility]/pharmacy #[id number], 161, cm, 10/24/24 9:07:00 EDT, Height/Length Dosing, 90, kg, 10/24/24 9:07:00 EDT, Weight Dosing Follow-up With When Contact Information MELANY SCHUMACHER CNP, FAM Within [address] [place] [phone] Business (1) Additional Instructions: Weight management Problem List/Past Medical History Ongoing Anxiety, generalized Carpal tunnel syndrome of left wrist Chronic back pain GERD (gastroesophageal reflux disease) Hypertension Major depressive disorder, single episode in full remission Mild persistent asthma Obesity due to excess calories Sciatica Screening for malignant neoplasm of colon Severe obesity with body mass index (BMI) of 35.0 to 39.9 with comorbidity Sleep difficulties Historical BMI 39.0-39.9,adult Moderate depressive disorder Morbid obesity due to excess calories 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 Medications Adipex-P 37.5 mg Tab, 37.5 mg= 1 tab(s), Oral, Daily Albuterol (Eqv-Proventil HFA) 90 mcg/inh inhalation aerosol, See Instructions Handicap placard, See Instructions ibuprofen 800 mg Tab, See Instructions lift chair, See Instructions Voltaren Arthritis Pain 1% topical gel, 2 gm, Topical, QID, 2 refills Wixela Inhub 250 mcg-50 mcg inhalation powder, See Instructions Allergies traMADol (Tachycardia, Nausea) Social History Alcohol - Denies Alcohol Use, 04/20/2022 Never, 10/09/2024 Substance Abuse - Denies Substance Abuse, 12/07/2019 Never, 10/09/2024 Tobacco - Denies Tobacco Use, 07/07/2020 Never (less than 100 in lifetime) Tobacco Use:., 11/21/2024 Family History Diabetes mellitus type 2: Mother and Sister. Hypertensio (more content not included)... Normal [facility] Comment on above: Result Comment: Elec tronically Signed By: MELANY SCHUMACHER CNP\.br\Date and Time Signed: 11/21/24 09:13 EDT Ambulatory Visit Summaryon 0 10-24-2024 Ambulatory Visit Summary Ambulatory Visit Summary DASHA MEJIA :1970 Visit Date:10/24/2024 Ambulatory Visit Instructions Your Diagnosis Encounter for weight management Non-smoker BMI 34.0-34.9,adult, Body mass index [BMI] 34.0-34.9, adult Class 1 obesity due to excess calories with body mass index (BMI) of 34.0 to 34.9 in adult Other obesity due to excess calories Your Care Team Attending Physician - MELANY SCHUMACHER CNP Primary Care Physician - MELANY SCHUMACHER CNP This Is Your Medications List Misc Prescription (Handicap placard) Misc Prescription (lift chair) albuterol (Albuterol (Eqv-Proventil HFA) 90 mcg/inh inhalation aerosol) diclofenac topical (Voltaren Arthritis Pain 1% topical gel) fluticasone-salmeter ol (Wixela Inhub 250 mcg-50 mcg inhalation powder) ibuprofen (ibuprofen 800 mg Tab) phentermine (Adipex-P 37.5 mg Tab) Procedures Performed Tear of biceps tendon (11/24/2018), Appendectomy, Bilateral tubal ligation, Meniscectomy of knee, Release of tendon of hand, Rotator cuff, Rotator cuff, Tonsillectomy. Discharge Vitals Temperature (Oral) 36.1 ???C Heart Rate (Peripheral) 74 Respiratory Rate 20 Blood Pressure 116/68 Height 161.0 cm Height 63 in Weight 90.0 kg Weight 198.416 lb BMI 34.72 What to do next Scheduled Follow-Up Appointments Tuesday 1:20 PM EDT With: Kvng FALK MD Where: [facility] General Surgery [address], [address], [place] [address]- [id number] 9:30 AM EDT With: Where: [facility] Family Medicine [address] [address]- Medications What How Much When Why Instructions Unchanged albuterol (Albuterol (Eqv-Proventil HFA) 90 mcg/ inh inhalation aerosol) See instructions INHALE 1 PUFF BY MOUTH EVERY 4 HOURS NEEDED FOR WHEEZING OR SHORTNESS OF BREATH Unchanged diclofenac topical (Voltaren Arthritis Pain 1% topical gel) 2 Gram Topical 4 times a day Arthritis Unchanged fluticasone-salmeter ol (Wixela Inhub 250 mcg-50 mcg inhalation powder) [...] cuff surgery Other chronic pain Lift Chair Unchanged phentermine (Adipex-P 37.5 mg Tab) 1 Tablets By Mouth Every day Encounter for weight management BMI 37.0-37.9, adult Exogenous obesity Allergies traMADol (Tachycardia, Nausea) Problems Ongoing - Any problem that you are currently receiving treatment for. Anxiety, generalized BMI 35.0-35.9,adult Carpal tunnel syndrome of left wrist Chronic [...] for choosing us for your care. Sheyla Tyson [facility] Family Medicine Office/Clini c Noteon 10-24-2024 Family Medicine Office/Clinic Note Family Medicine Office/Clinic Note Chief Complaint The patient presents for weight management assistance. HPI Staff Dasha is a 54 year old female presenting with 4 week f/u Weight management Adipex Sleeping well:Yes, 6-8 hours Chest pain:No Tremors:No Headaches:No Heart fluttering:No Blurred Vision:No Starting Weight: 214.73 lbs Weight last visit: 204.14 lbs. Weight this visit: 198.41 lbs. Needs refills on this I have reviewed and verified the staff HPI to be accurate for this encounter. History of Present Illness 54-year-old female presents in f/u for for weight management. She has a body mass index (BMI) 34.72 classified as Class 1 obesity due to excessive caloric intake. She reports actively managing her weight by making specific lifestyle changes, including regulating her diet such as limiting snacks, opting for healthier choices, and minimizing portion sizes. She engages in physical activities such as walking her dog and doing yard work regularly. She has been using Adipex without any adverse effects, particularly no cardiovascular side effects, and requires a prescription renewal. She has been making satisfactory progress with her weight reduction goals and aims to lose 10% of her weight within 90 days. This goal is reportedly within reach due to her consistent lifestyle efforts. The patient recently underwent routine medical evaluations, including blood work and a mammogram, yielding favorable results. Her non-smoking status is beneficial in her weight loss and overall health. The patient is attentive to instilling healthier habits within her family, particularly concerning her daughter's weight and dietary habits. Review of Systems PHQ Score Initial Depression Screen Score: 0 SCORE - General: Reports current weight loss efforts; denies exacerbating symptoms with medication. - Cardiovascular: Denies heart issues. - Respiratory: Denies any respiratory complaints. - Musculoskeletal: Engages in physical activity, specifically walking and yard work. - Psychosocial: Reports good overall mood and outlook. - Social: Denies smoking. Physical Exam Vitals & Measurements T: 36.1 ???C(Oral) HR: 74(Peripheral) RR: 20 BP: 116/68 SpO2: 97% HT: 161.0 cm HT: 63 in WT: 198.416 lb WT: 90.0 kg BMI: 34.72 General: alert, no acute distress Cardiovascular: regular rate and rhythm, normal peripheral perfusion Respiratory: Lungs CTA, respirations non labored Extremities: no deformity, no trauma Neurological: oriented x 4, LOC appropriate for age speech normal Assessment/Plan 1. Encounter for weight management (Z76.89: Persons encountering health services in other specified circumstances) - Support for lifestyle changes. - Encourage weight loss efforts. 2. Severe obesity with body mass index (BMI) of 35.0 to 39.9 with comorbidity (E66.01: Morbid (severe) obesity due to excess calories) The standard range for ages 18 and older is >=18.5 and < 25 kg/m2. Your BMI today was above this range, this falls in the overweight to obese category and there are medical benefits to weight loss. We can offer counselling, referral, and/or medical support in addressing this problem. Your BMI and weight management will be followed at subsequent visits. - Patient has lost 5.73 lbs since her last visit and today her BMI is 34.72 - Continue with dietary modifications and exercise. - OARRS reviewed and found to be appropriate - Prescribe Adipex and monitor for side effects. - Assess progress towards a 10% weight loss. - f/u in 4 weeks 3. Non-smoker (Z78.9: Other specified health status) - Reinforce health benefits of non-smoking status. 4. BMI 34.0-34.9,adult, (Z68.34: Body mass index [BMI] 34.0-34.9, adult)Body mass index [BMI] 34.0-34.9, adult - Continue with dietary modifications and exercise. - Prescribe Adipex and monitor for side effects. - Assess progress towards a 10% weight loss. 5. Class 1 obesity due to excess calories with body mass index (BMI) of 34.0 to 34.9 in adult (E66.811: Obesity, class 1) - Dietary intake reassessment. - Encourage ongoing physical activities. Other obesity due to excess calories (E66.09: Other obesity due to excess calories) The standard range for ages 18 and older is >=18.5 and < 25 kg/m2. Your BMI today was above this range, this falls in the overweight to obese category and there are medical benefits to weight loss. We can offer counselling, referral, and/or medical support in addressing this problem. Your BMI and weight management will be followed at subsequent visits. Follow-up With When Contact Information MELANY SCHUMACHER CNP, FAM Within 4 weeks [address] [place] [phone] Business (1) Additional Instructions: weight management Patient Education Obesity, Adult, Gtam-io-Xxcm Problem List/Past Medical History Ongoing Anxiety, generalized Carpal tunnel syndrome of left wrist Chronic back pain GERD (gastroesophageal reflux disea (more content not included)... Normal [facility] Comment on above: Result Comment: Elec tronically Signed By: MELANY SCHUMACHER CNP\.br\Date and Time Signed: 10/24/24 10:08 EDT Pre-Visit Planningon 025 Pre-Visit Planning Pre-Visit Planning - From: Nereida Wild To: MELANY SCHUMACHER CNP; Sent: 10/23/2024 10:11:43 EDT Subject: Pre-Visit Planning Due Date/Time: 10/23/2024 10:11:00 EDT Caller Name: DASHA MEJIA; Caller Number: Mel , Keith [facility] Melany. During a pre-visit planning chart review, I noted the following documentation in the medical record indicates that this patient had BMI of 35.29 on 10/09/2024 and a diagnosis of HTN noted on Current Problem List. If BMI during this current visit is greater than 35: Based on your medical judgment, can you further clarify the following? I can update the Chronic Problem List with your response if you would like. -Morbid obesity (please also include additional diagnosis to reflect current BMI) -Severe obesity with serious comorbidity in adult (please also include additional diagnosis to reflect current BMI) -Other (please specify): In responding to this request, please exercise your independent professional judgment. The fact that a question is asked does not imply that any particular answer is desired or expected. If you have any questions, please feel free to contact me per TEAMS or . Thank you! Nereida Wild LPN Clinical Documentation Improvement SpecialistDavid Ville [phone] TEAMS or [email or web address] Discussed via telephone and Dx Severe obesity with serious comorbidity in adult, BMI 35.0-39.9 added to list - From: MELANY SCHUMACHER CNP To: Nereida Wild; Sent: 10/24/2024 09:28:30 EDT Subject: RE: Pre-Visit Planning Caller Name: DASHA MEJIA; Caller Number: Mel , M Normal [facility] Cytology Reporton 10-23-2024 Cytology report Cyto stain.thin prep Doc (Cvx/Vag) (NOTE) Path Number: [id number] DIAGNOSIS Imaged ThinPrep Pap - Cervical (1 monolayer slide): Specimen Adequacy: Satisfactory for evaluation. - Endocervical/transfo rmation zone component present. Descriptive Diagnosis: Negative for intraepithelial lesion or malignancy. Comments: Specimen was screened at [facility], [address] [place] [address] [employer] Screener: CS Electronically Signed Out REBEKAH Tapia(ASCP) cs/10/27/2024 Source of Specimen: A: Imaged ThinPrep Pap - Cervical (1 monolayer slide) HPV Reflex?............. .........HPV if ASCUS Clinical History Postmenopausal Z01.419 Routine double corner cutter exam without abnormal findings LMP: 01/16/2018 Processing Lab: [address] [id number] [place] [address] This Pap Test has been evaluated with the assistance of the ThinPrep Pap Test Imaging System. The Pap smear is a screening test primarily for squamous epithelial lesions, which is subject to both false negative and false positive results. Your patient should be reminded to consult you immediately if she experiences any suspicious signs or symptoms, regardless of her Pap smear result. GYNECOLOGIC CYTOLOGY REPORT Patient Name: DASHA MEJIA [facility] Rec: [id number] [facility] [employer] CONSULTING PATHOLOGISTS [facility] EMERGENCY DEPARTMENT ANATOMIC PATHOLOGY [address] [place] [address]. [place], [place] [address] Normal [facility] Mamm Screen w/CAD if perf and 3D Bilon 10-17-2024 [place] Mamm Screen w/CAD if perf and 3D Amauri Exam Date/Time: 10/17/2024 12:40 EDT Reason for Exam: Z12.31;Screening Report IMPRESSION: BIRADS 1 NEGATIVE, NORMAL INTERVAL FOLLOW-UP. CLINICAL HISTORY: Screening. COMPARISON: Priors dating back to 2019. RESULT: Digital mammography and 3D tomosynthesis of bilateral breasts was performed. Category A - The breasts are almost entirely fatty. There is no suspicious mass, asymmetry, architectural distortion, or calcification. Vascular calcifications: Absent. CAD analysis was performed and used in the interpretation. Dense Breast: No Follow-up: 12 MONTH RECALL. Board Certified Radiologists. Accredited by the ACR and FDA. MAMMOGRAPHY IS VERY IMPORTANT TO YOUR HEALTH. THE [place] [employer] GUIDELINES RECOMMEND THAT WOMEN 40 [...] ANY PENDING ADDITIONAL VIEWS. Report Ordering Provider: MELANY SCHUMACHER FINAL REPORT Dictated: 10/17/2024 4:25 pm Arthur Gilbert MD. Signed (Electronic Signature): 10/17/2024 4:25 pm Signed by: Arthur Gilbert MD Transcribed by: VICK Technologist: GERMAN Assessment: BI-RADS Category 1-Negative Recommendation: Normal interval follow-up Normal [facility] CHEMISTRYOrdered By: SYSTEM SYSTEM on 10-16-2024 Albumin [Mass/Vol] 4.4 g/dL Normal 3.3 - 5.0 gm/dL R emisol Chem Albumin/Globulin [Mass ratio] 1.6 {ratio} Normal 1.1 - 2.2 Remisol Chem ALP [Catalytic activity/Vol] 83 [iU]/d Normal 21 - 98 Int._Unit/L Remisol Chem ALT No additional P-5'-P [Catalytic activity/Vol] 22 [iU]/d Normal 6 - 46 Int._Unit/L Remisol Chem Anion gap [Moles/Vol] 9 mmol/L Normal 6 - 16 mEq/L Remisol Chem AST [Catalytic activity/Vol] 23 [iU]/d Normal 5 - 43 Int._Unit/L Remisol Chem Bilirubin [Mass/Vol] 0.6 mg/dL Normal 0.0 - 1.1 mg/dL Remisol Chem Calcium [Mass/Vol] 9.5 mg/dL Normal 8.9 - 11.1 mg/dL Remisol Chem Chloride [Moles/Vol] 105 mmol/L Normal 101 - 111 mmol/ L Remisol Chem Cholesterol [Mass/Vol] 172 mg/dL Normal 120 - 200 mg/dL Remisol Chem Cholesterol in HDL [Mass/Vol] 48 mg/dL Invalid Interpretation Code Remisol Chem Comment on above: Result Comment: '>= 60 LOW RISK' '<= 40 HIGH RISK' Cholesterol in LDL [Mass/Vol] 125 mg/dL Normal <=129mg/dL Remisol Chem Cholesterol in VLDL [Mass/Vol] 12 mg/dL Normal 7 - 40 mg/dL Remisol Chem CO2 [Moles/Vol] 29 mmol/L Normal 21 - 31 mmol/L Remis ol Chem Creatinine [Mass/Vol] 0.8 mg/dL Normal 0.5 - 1.3 mg/dL Remisol Chem eGFR 87 mL/min/1.73 m2 Normal >=59mL/min /1.73 m2 Remisol Chem Globulin (S) [Mass/Vol] 2.8 g/dL Normal 1.4 - 4.0 gm/dL Remisol Chem Glucose [Mass/Vol] 97 mg/dL Normal 55 - 199 mg/dL Re misol Chem Potassium [Moles/Vol] 4.5 mmol/L Normal 3.5 - 5.3 mmol/L Remisol Chem Protein [Mass/Vol] 7.2 g/dL Normal 6.0 - 7.8 gm/dL R emisol Chem Sodium [Moles/Vol] 138 mmol/L Normal 135 - 145 mmol/L Remisol Chem Triglyceride [Mass/Vol] 62 mg/dL Normal <=149mg/dL Remisol Chem Urea nitrogen [Mass/Vol] 18 mg/dL Normal 5 - 21 mg/dL Remisol Chem Urea nitrogen/Creatinine [Mass ratio] 22 mg/mg High 10 - 20 Remisol Chem Albumin DL <= 20 mg/L (U) [Mass/Vol] 1.3 mg/dL Normal 0.0 - 1.9 mg/dL Remisol Chem Albumin/Creatinine DL <= 20 mg/L (U) [Mass ratio] 11.4 mg/gm Cr Normal 0.0 - 30.0 mg/gm Cr Remisol Chem Comment on above: Interpretive Data: 3 0-300 mg/g Cr indicates an increased risk for diabetic nephropathy. >300 mg/g Cr is consistent with clinical nephropathy. U Creatinine 113.9 mg/dL Invalid Interpretation Code Remisol Chem CMPon 10-16-2024 Albumin [Mass/Vol] 4.4 g/dL Normal 3.3-5.0 [facility] Comment on above: Performed By: #### 2 [id number] #### [facility] [address] [place] [address] Albumin/Globulin (S) [Mass conc ratio] 1.6 Normal 1.1-2.2 [facility] Comment on above: Performed By: #### 2 [id number] #### [facility] [address] [place] [address] ALP [Catalytic activity/Vol] 83 Int._Unit/L Normal 21-98 [facility] Comment on above: Performed By: #### 2 [id number] #### [facility] [address] [place] [address] ALT No additional P-5'-P [Catalytic activity/Vol] 22 Int._Unit/L Normal 6-46 [facility] Comment on above: Performed By: #### 2 [id number] #### [facility] [address] [place] [address] Anion gap [Moles/Vol] 9 mmol/L Normal 6-16 [facility] Comment on above: Performed By: #### 2 [id number] #### [facility] [address] [place] [address] AST [Catalytic activity/Vol] 23 Int._Unit/L Normal 5-43 [facility] Comment on above: Performed By: #### 2 [id number] #### [facility] [address] [place] [address] Bilirubin [Mass/Vol] 0.6 mg/dL Normal 0.0-1.1 [facility] Comment on above: Performed By: #### 2 [id number] #### [facility] [address] [place] [address] Calcium [Mass/Vol] 9.5 mg/dL Normal 8.9-11.1 [facility] Comment on above: Performed By: #### 2 [id number] #### [facility] [address] [place] [address] Chloride [Moles/Vol] 105 mmol/L Normal 101-111 [facility] Comment on above: Performed By: #### 2 [id number] #### [facility] [address] [place] [address] CO2 [Moles/Vol] 29 mmol/L Normal 21-31 [facility] Comment on above: Performed By: #### 2 [id number] #### [facility] [address] [place] [address] Creatinine [Mass/Vol] 0.8 mg/dL Normal 0.5-1.3 [facility] Comment on above: Performed By: #### 2 [id number] #### [facility] [address] [place] [address] Globulin (S) [Mass/Vol] 2.8 g/dL Normal 1.4-4.0 [facility] Comment on above: Performed By: #### 2 [id number] #### [facility] [address] [place] [address] Glucose [Mass/Vol] 97 mg/dL Normal 55-199 [facility] Comment on above: Performed By: #### 2 [id number] #### [facility] [address] [place] [address] Potassium [Moles/Vol] 4.5 mmol/L Normal 3.5-5.3 [facility] Comment on above: Performed By: #### 2 [id number] #### [facility] [address] [place] [address] Protein [Mass/Vol] 7.2 g/dL Normal 6.0-7.8 [facility] Comment on above: Performed By: #### 2 [id number] #### [facility] [address] [place] [address] Sodium [Moles/Vol] 138 mmol/L Normal 135-145 [facility] Comment on above: Performed By: #### 2 [id number] #### [facility] [address] [place] [address] Urea nitrogen [Mass/Vol] 18 mg/dL Normal 5-21 [facility] Comment on above: Performed By: #### 2 [id number] #### [facility] [address] [place] [address] Urea nitrogen/Creatinine [Mass ratio] 22 No Units High 10-20 [facility] Comment on above: Performed By: #### 2 [id number] #### [facility] [address] [place] [address] Lipid Panelon 10-16-2024 Cholesterol [Mass/Vol] 172 mg/dL Normal 120-200 [facility] Comment on above: Performed By: #### 2 [id number] #### [facility] [address] [place] [address] Cholesterol in HDL [Mass/Vol] 48 mg/dL Invalid Interpretation Code [facility] Comment on above: Result Comment: '>= 60 LOW RISK' '<= 40 HIGH RISK' Performed By: #### 2 [id number] #### [facility] [address] [place] [address] Cholesterol in LDL [Mass/Vol] 125 mg/dL Normal <=129 [facility] Comment on above: Performed By: #### 2 [id number] #### [facility] [address] [place] [address] Cholesterol in VLDL [Mass/Vol] 12 mg/dL Normal 7-40 [facility] Comment on above: Performed By: #### 2 [id number] #### [facility] [address] [place] [address] Triglyceride [Mass/Vol] 62 mg/dL Normal <=149 [facility] Comment on above: Performed By: #### 2 [id number] #### [facility] [address] [place] [address] U MA/Cr Ratioon 10-16-2024 Albumin DL <= 20 mg/L (U) [Mass/Vol] 1.3 mg/dL Normal 0.0-1.9 [facility] Comment on above: Performed By: #### 1 [id number] #### [facility] [address] [place] [address] Albumin/Creatinine DL <= 20 mg/L (U) [Mass ratio] 11.4 mg/gm Cr Normal .0-30.0 [facility] Comment on above: Result Comment: 30-3 00 mg/g Cr indicates an increased risk for diabetic nephropathy. >300 mg/g Cr is consistent with clinical nephropathy. Performed By: #### 1 [id number] #### [facility] [address] [place] [address] U Creatinine 113.9 mg/dL Invalid Interpretation Code [facility] Comment on above: Performed By: #### 1 [id number] #### [facility] [address] [place] [address] eGFRon 10-16-2024 eGFR 87 mL/min/1.73 m2 Normal >=59 [facility] Comment on above: Performed By: #### 1 [id number] #### [facility] [address] [place] [address] Ambulatory Visit Summaryon 0 10-09-2024 Ambulatory Visit Summary Ambulatory Visit Summary DASHA MEJIA :1970 Visit Date:10/09/2024 Ambulatory Visit Instructions Your Diagnosis Encounter for subsequent annual wellness visit (AWV) in Medicare patient Breast cancer screening by mammogram Anxiety, generalized Major depressive disorder, single episode in full remission Chronic back pain Hypertension Mild persistent asthma Screening for malignant neoplasm of colon Screening for ischemic heart disease (IHD) Advanced directives, counseling/discussio n Immunization refused Obesity due to excess calories Your Care Team Attending Physician - MELANY SCHUMACHER CNP Primary Care Physician - MELANY SCHUMACHER CNP This Is Your Medications List Misc Prescription (Handicap placard) Misc Prescription (lift chair) albuterol (Albuterol (Eqv-Proventil HFA) 90 mcg/inh inhalation aerosol) diclofenac topical (Voltaren Arthritis Pain 1% topical gel) fluticasone-salmeter ol (Wixela Inhub 250 mcg-50 mcg inhalation powder) ibuprofen (ibuprofen 800 mg Tab) phentermine (Adipex-P 37.5 mg Tab) Procedures Performed Tear of biceps tendon (11/24/2018), Appendectomy, Bilateral tubal ligation, Meniscectomy of knee, Release of tendon of hand, Rotator cuff, Rotator cuff, Tonsillectomy. Discharge Vitals Heart Rate (Peripheral) 86 Blood Pressure 128/60 Height 161 cm Height 63 in Weight 91.48 kg Weight 201.679 lb BMI 35.29 What to do next Scheduled Follow-Up Appointments Tuesday 9:15 AM EDT With: Where: [facility] Tuesday 9:20 AM EDT With: Where: [address] [address]- Tuesday 9:00 AM EDT With: MELANY SCHUMACHER CNP Where: [address] [id number]- [id number] 9:30 AM EDT With: Where: [address] [address]- You Need to Complete the Following Comprehensive Metabolic Panel, Blood, Routine collect, 10/09/24, Order for future visit, Lab Collect, Hypertension, Not Required, Print Label By Order Location Lipid Panel, Blood, Routine collect, 10/09/24, Order for future visit, Lab Collect, Screening for ischemic heart disease (IHD), Required & Missing, Print Label By Order Location Urine Microalbumin/Creatin ine Ratio, Urine, Routine collect, 10/09/24, Order for future visit, Nurse collect, Hypertension, Not Required, Print Label By Order Location MA Mamm Screen w/CAD if perf and 3D Amauri, 10/15/24, Routine, Order for Future Visit, Transport Mode: Ambulatory, Reason: Screening, Reason: Z12.31, No, No, No, Breast cancer screening by mammogram, no breast implants., pp_set_radiology_sub specialty, Required & Missing, [facility] Medications What How Much When Why Instructions Unchanged albuterol (Albuterol (Eqv-Proventil HFA) 90 mcg/ inh inhalation aerosol) See instructions INHALE 1 PUFF BY MOUTH EVERY 4 HOURS NEEDED FOR WHEEZING OR SHORTNESS OF BREATH Unchanged diclofenac topical (Voltaren Arthritis Pain 1% topical gel) 2 Gram Topical 4 times a day Arthritis Unchanged fluticasone-salmeter ol (Wixela Inhub 250 mcg-50 mcg inhalation powder) [...] cuff surgery Other chronic pain Lift Chair Unchanged phentermine (Adipex-P 37.5 mg Tab) 1 Tablets By Mouth Every day Encounter for weight management BMI 37.0-37.9, adult Exogenous obesity Medications and Immunizations Administered Not Given influenza virus vaccine, inactivated, Patient Refuses Allergies traMADol (Tachycardia, Nausea) Problems Ongoing - Any problem that you are currently receiving treatment for. Anxiety, generalized BMI 35.0-35.9,adult Carpal tunnel syndrome of left wrist Chronic [...] you for choosing us for your care. Educati (more content not included)... Normal [facility] Family Medicine Office/Clini c Noteon 10-09-2024 Family Medicine Office/Clinic Note Family Medicine Office/Clinic Note Chief Complaint Subsequent Medicare Wellness Review of Systems PHQ Score Initial Depression Screen Score: 2 SCORE Physical Exam Vitals & Measurements HR: 86(Peripheral) BP: 128/60 SpO2: 97% HT: 63 in HT: 161 cm WT: 201.679 lb WT: 91.48 kg BMI: 35.29 Procedure I was in the office and available for consultation and to provide direct supervision at the time of this visit. I have provided supervision of the care team and have reviewed this chart and office note and agree with the plan of care. Assessment/Plan 1. Encounter for subsequent annual wellness visit (AWV) in Medicare patient (Z00.00: Encounter for general adult medical examination without abnormal findings) The patient was given a customized and personalized print out of all the current AHRQ USPSTF???s recommendations for preventative services and all current [...] of clutter to prevent tripping and/or falling. [place] Advance Directives reviewed. Documents provided to patient, encouraged to bring in for scanning into chart once complete. See #10. Patient denies any problems with ADL???s and Instrumental ADL???s. Cognitive screening completed with memory and clock face drawing. No deficits noted. Immunization record reviewed, discussed Shingrix vaccine with educational handout and availability. No COVID vaccines have been administered. Allergies and medications reviewed and up to date. No concerns with taking medication as prescribed. Reviewed OTC medications, medication list up to date. Blood tests were reviewed: Discussed what tests need to be updated. Labs were ordered, will have completed prior to next PCP visit. Labs to be completed with [facility]. No concerns with bowel/ bladder. Cologuard last completed 04/28/2022. See #8. Reviewed pain symptoms: chronic back, rates pain as a 4 out of 10, uses Voltaren Gel and takes ibuprofen prn pain. Reviewed all outside providers that patient follows. Last visit summary notes available in chart and/or have been requested. Patient declines any signs or symptoms of depression at this time. 8 minutes spent with screening and documentation. PHQ2 screening score 2. Patient denies alcohol use. 8 minutes spent with screening and documentation. Audit score 0. Follow up scheduled with PCP, 10/24/2024. AWV has been scheduled, 10/09/2025. Medicare provides yearly screening for alcohol and depression concerns. This is completed during our Medicare wellness visit for those who do not have a current diagnosis of depression or concerns with alcohol use. I spent a total of 17 minutes on this date of service which included preparing to see the patient, face to face patient care, completing clinical documentation, obtaining and/or reviewing separately obtained history, counseling and educating the patient with handouts. Explanations were provided with reviewing questionnaires. AUDIT risk assessment screening completed, risk score (0) with patient denying concerns with use. Completed PHQ-2 risk assessment for depression with risk score (2), negative findings. Patient has been reminded to notify the provider if there would be a change or concerns with symptoms with fear, unable to sleep, worrying too much or feeling down and/or sad with lost of interest with daily activities. Will continue to monitor with screening yearly during Medicare wellness visits. 2. Breast cancer screening by mammogram (Z12.31: Encounter for screening mammogram for malignant neoplasm of breast) Recommended mammogram screening discussed with patient during today's Medicare Wellness visit. Patient reminded with the importance of continued Breast Self-Awareness at home. Easy to read demonstration on how to perform a self breast exam: What to look for and feel for was reviewed and provided to patient. Mammogram ordered and has been scheduled 10/15/2024. Pt has been advised no deodorant, sprays or lotions. 3. Anxiety, generalized (F41.1: Generalized anxiety disorder) Patient is not on medication and feels anxiety is well controlled. SANAM-7 screening completed today with a score of (3). Follows with PCP as directed for management and symptom control. Denies any suicidal ideations at this time. Education provided, stress management and relaxation techniques reviewed. Will continue to follow with PCP and communicate any changes of increased anxiety. Reviewed additional signs/symptoms to monitor for and report to provider. 4. Major depressive disorder, single episode in full remission (F32.5: Major depressive disorder, single episode, in full remission) Patient is not currently on medi (more content not included)... Normal [facility] Comment on above: Result Comment: Elec tronically Signed By: MELANY SCHUMACHER CNP\.br\Date and Time Signed: 10/09/24 15:19 EDT\.br\Electronically Co-Signed By: Simin Olsen\.br\Date and Time Co-Signed: 10/09/24 12:08 EDT Family Medicine Office/Clini c Noteon 09-26-2024 Family Medicine Office/Clinic Note Family Medicine Office/Clinic Note Chief Complaint The patient presents for weight management consultation and evaluation for obesity. HPI Staff Dasha is a 54 year old female presenting with 4 week f/u Weight management Adipex 37.5 mg Sleeping well:Yes, 6-8 hours Chest pain:No Tremors:No Headaches:No Heart fluttering:No Blurred Vision:No Starting Weight: 214.73 lbs. Weight this visit: 204.14 lbs Needs refills on Adipex I have reviewed and verified the staff HPI to be accurate for this encounter. History of Present Illness 54-year-old female presenting with an encounter for weight management and obesity monitoring. She reports a diagnosis of Class 2 obesity with a BMI of 35.0-35.9. SHe has lost 10.55 pounds since starting the medication. The patient describes lifestyle modifications, including reduced portion sizes and decreased snack consumption, contributing to a ten and a half pound weight loss. She performs minimal physical exercise, primarily involving leg lifts while supine, and adheres to hydration of at least 64 ounces of water per day. The patient denies symptoms like dry mouth and heart palpitations, indicating no adverse effects from her current medication. Her non-smoking status supports her health management efforts. She has expressed commitment to her weight management plan and sought a medication refill as part of her ongoing treatment strategy. Review of Systems PHQ Score Initial Depression Screen Score: 2 SCORE Constitutional: no fever, no chills, no [...] noncontributory. Physical Exam Vitals & Measurements T: 36.2 ???C(Oral) HR: 72(Peripheral) RR: 18 BP: 122/78 SpO2: 98% HT: 161.0 cm HT: 63 in WT: 92.6 kg WT: 204.148 lb BMI: 35.72 General: alert, no acute distress Cardiovascular: regular rate and rhythm, normal peripheral perfusion Respiratory: Lungs CTA, respirations non labored Extremities: no deformity, no trauma Neurological: oriented x 4, LOC appropriate for age speech normal Assessment/Plan 1. Encounter for weight management (Z76.89: Persons encountering health services in other specified circumstances) - Reinforce lifestyle changes and dietary habits for obesity management. - Provide prescription refill. - Follow up in four weeks for plan reassessment. Ordered: phentermine, 37.5 mg = 1 tab(s), Oral, Daily, # 30 tab(s), Refills(s) 0, Pharmacy: [facility]/pharmacy #[id number], 161, cm, 09/26/24 9:03:00 EDT, Height/Length Dosing, 92.6, kg, 09/26/24 9:03:00 EDT, Weight Dosing 2. Non-smoker (Z78.9: Other specified health status) Encouraged to continue as a non-smoker 3. BMI 35.0-35.9,adult, (Z68.35: Body mass index [BMI] 35.0-35.9, adult)Body mass index [BMI] 35.0-35.9, adult - Encourage continued BMI monitoring and weight management via dietary control and hydration. - Discuss regular physical activity benefits. 4. Class 2 obesity due to excess calories with body mass index (BMI) of 35.0 to 35.9 in adult (E66.812: Obesity, class 2) - Educate on dietary modifications and exercise for weight loss. - Consider medication options based on assessment. - Plan a follow-up in one month to review progress. Other obesity due to excess calories (E66.09: Other obesity due to excess calories) The standard range for ages 18 and older is >=18.5 and < 25 kg/m2. Your BMI today was above this range, this falls in the overweight to obese category and there are medical benefits to weight loss. We can offer counselling, referral, and/or medical support in addressing this problem. Your BMI and weight management will be followed at subsequent visits. Ordered: phentermine, 37.5 mg = 1 tab(s), Oral, Daily, # 30 tab(s), Refills(s) 0, Pharmacy: [facility]/pharmacy #[id number], 161, cm, 09/26/24 9:03:00 EDT, Height/Length Dosing, 92.6, kg, 09/26/24 9:03:00 EDT, Weight Dosing Follow-up With When Contact Information MELANY SCHUMACHER CNP, FAM Within [address] [place] [phone] Business (1) Additional Instructions: Weight management [...] of biceps tendon (11/24/2018), Appendectomy, Bilateral tubal ligat (more content not included)... Normal [facility] Comment on above: Result Comment: Elec tronically Signed By: MELANY SCHUMACHER CNP\.br\Date and Time Signed: 09/26/24 09:30 EDT Ambulatory Visit Summaryon 0 08-29-2024 Ambulatory Visit Summary Ambulatory Visit Summary DASHA MEJIA Yamilet :1970 Visit Date:08/29/2024 Ambulatory Visit Instructions Your Diagnosis Encounter for weight management Non-smoker BMI 37.0-37.9, adult Exogenous obesity Your Care Team Attending Physician - MELANY SCHUMACHER CNP Primary Care Physician - MELANY SCHUMACHER CNP This Is Your Medications List phentermine (Adipex-P 37.5 mg Tab) Contact prescribing physician if questions or concerns Misc Prescription (Handicap placard) Misc Prescription (lift chair) albuterol (Albuterol (Eqv-Proventil HFA) 90 mcg/inh inhalation aerosol) diclofenac topical (Voltaren Arthritis Pain 1% topical gel) fluticasone-salmeter ol (Wixela Inhub 250 mcg-50 mcg inhalation powder) ibuprofen (ibuprofen 800 mg Tab) Procedures Performed Tear of biceps tendon (11/24/2018), Appendectomy, Bilateral tubal ligation, Meniscectomy of knee, Release of tendon of hand, Rotator cuff, Rotator cuff, Tonsillectomy. Discharge Vitals Temperature (Oral) 36.4 ???C Heart Rate (Peripheral) 82 Respiratory Rate 20 Blood Pressure 118/78 Height 161.0 cm Height 63 in Weight 97.4 kg Weight 214.73 lb BMI 37.58 What to do next Scheduled Follow-Up Appointments Tuesday 9:00 AM EDT With: MELANY SCHUMACHER CNP Where: [address] [address]- Tuesday 8:00 AM EDT With: Where: [address] [address]- You Need to Schedule the Following Appointments Follow Up with MELANY SCHUMACHER CNP, FAM When: Within 4 weeks Comments: Weight management Where: [address] [place] [phone] Business (1) Medications What How Much When Why Instructions New phentermine (Adipex-P 37.5 mg Tab) 1 Tablets By Mouth Every day Encounter for weight management BMI 37.0-37.9, adult Exogenous obesity Pickup at [facility]/pharmacy #[id number] Unchanged albuterol (Albuterol (Eqv-Proventil HFA) 90 mcg/ inh inhalation aerosol) See instructions INHALE 1 PUFF BY MOUTH EVERY 4 HOURS NEEDED FOR WHEEZING OR SHORTNESS OF BREATH Contact prescribing physician if questions or concerns Unchanged diclofenac topical (Voltaren Arthritis Pain 1% topical gel) 2 Gram Topical 4 times a day Arthritis Contact prescribing physician if questions or concerns Unchanged fluticasone-salmeter ol (Wixela Inhub 250 mcg-50 mcg inhalation powder) See instructions INHALE 1 PUFF BY MOUTH TWICE DAILY. RINSE MOUTH AND THROAT AFTER USE Contact prescribing physician if questions or concerns Unchanged ibuprofen (ibuprofen 800 mg Tab) See instructions TAKE 1 TABLET BY MOUTH THREE TIMES DAILY Contact prescribing physician if questions or concerns Unchanged Misc Prescription (Handicap placard) See instructions Use as directed. Expiration 5 years Contact prescribing physician if questions or concerns Unchanged Misc Prescription (lift chair) See instructions Osteoarthritis Chronic back pain History of rotator cuff surgery Other chronic pain Lift Chair Contact prescribing physician if questions or concerns Pharmacy Information [facility]/pharmacy #[id number]: [address], [place] [id number] [phone] Allergies traMADol (Tachycardia, Nausea) Problems Ongoing - [...] you for choosing us for your care. Education Materials Obesity, Adult Obesity is having too much body fat. Being obese means that your weight is more than what is healthy for you. BMI (body mass index) is a number that explains how much body fat you have. If you have a BMI of 30 or more, you are obese. Obesity can cause serious health problems, such as: ??? Stroke. ??? Coronary artery disease (CAD). ??? Type 2 diabetes. ??? Some types of cancer. ??? High blood pressure (hypertension). ??? High cholesterol. ??? Gallbladder stones. Obesity can also contribute to: ??? Osteoarthritis. ??? Sleep apnea. ??? Infertility problems. What are the causes? Eating meals each day that are high in calories, sugar, and fat. ??? Drinking a lot (more content not included)... Normal [facility] Family Medicine Office/Clini c Noteon 08-29-2024 Family Medicine Office/Clinic Note Family Medicine Office/Clinic Note Chief Complaint The patient is seeking assistance for weight management and overall health improvement ahead of a personal event. HPI Staff Nora is a 54 year old female presenting wanting to discuss weight OV January 04 2024 was on Adipex- did not do anything for her she did not get any results from this She was refereed to [employer] in [place] she did Victosa- she had cramping bad with this so she stopped She has gained at least 10-15 lbs since the holidays, History of Present Illness 54-year-old female presenting for weight management assistance. She has an elevated BMI of 37.0-37.9 and a history of exogenous obesity. She has explored various pharmacotherapeutic options with mixed outcomes, including the use of Adipex and a past trial of a GLP-1 receptor agonist, with some side effects noted. The patient is actively avoiding foods and beverages high in sugar and opting for healthier eating habits. She has initiated increased physical activities by walking and accessing exercise equipment available at a local senior community center. Her focus is to prioritize health improvements for herself and to efficiently manage family responsibilities. The patient is considering resumption of Adipex to aid in her weight loss efforts, contributing to her longstanding goal of achieving an ideal weight closer to 150 pounds. She reports her immediate goal is to lose 25 pounds before her upcoming wedding. Review of Systems PHQ Score Initial Depression Screen Score: 2 SCORE - General: Reports stress eating. - Musculoskeletal: Denies current joint pain, but pain occurs with increased weight. - Neurological: Denies dizziness or headache while on Adipex; Reports feeling better post-exercise. - Endocrine: Denies current symptoms of hypoglycemia. Physical Exam Vitals & Measurements T: 36.4 ???C(Oral) HR: 82(Peripheral) RR: 20 BP: 118/78 SpO2: 98% HT: 63 in HT: 161.0 cm WT: 97.4 kg WT: 214.73 lb BMI: 37.58 General: alert, no acute distress Cardiovascular: regular rate and rhythm, normal peripheral perfusion Respiratory: Lungs CTA, respirations non labored Extremities: no deformity, no trauma Neurological: oriented x 4, LOC appropriate for age speech normal Assessment/Plan 1. Encounter for weight management (Z76.89: Persons encountering health services in other specified circumstances) A comprehensive weight management program integrating exercise, dietary advice, and medication like Adipex. Patient progress will be periodically reviewed to ensure alignment with health goals. Patient reports understanding that she needs to show monthly progress and a 10% weight loss in 90 days to continue the medication. Medication Agreement and UDS completed today in the office OARRS reviewed and found to be appropriate Follow-up in 4 weeks. Ordered: phentermine, 37.5 mg = 1 tab(s), Oral, Daily, # 30 tab(s), Refills(s) 0, Pharmacy: [facility]/pharmacy #[id number], 161, cm, 08/29/24 9:11:00 EST, Height/Length Dosing, 97.4, kg, 08/29/24 9:11:00 EST, Weight Dosing Drug Screen POC [id number] 2. Non-smoker (Z78.9: Other specified health status) Continued avoidance of smoking is affirmed, supporting the patient???s overall health and weight management efforts. 3. BMI 37.0-37.9, adult (Z68.37: Body mass index [BMI] 37.0-37.9, adult) The patient exhibits a BMI indicative of obesity. Renewed focus on enhancing physical activity and dietary regulation is crucial. Restarting Adipex is part of the strategy, contingent upon compliance and insurance coverage. Ordered: phentermine, 37.5 mg = 1 tab(s), Oral, Daily, # 30 tab(s), Refills(s) 0, Pharmacy: [facility]/pharmacy #[id number], 161, cm, 08/29/24 9:11:00 EST, Height/Length Dosing, 97.4, kg, 08/29/24 9:11:00 EST, Weight Dosing 4. Exogenous obesity (E66.09: Other obesity due to excess calories) Pharmacotherapy reinstatement along with exercise and dietary improvement initiatives to address obesity due to excess caloric intake. Ordered: phentermine, 37.5 mg = 1 tab(s), Oral, Daily, # 30 tab(s), Refills(s) 0, Pharmacy: [facility]/pharmacy #[id number], 161, cm, 08/29/24 9:11:00 EST, Height/Length Dosing, 97.4, kg, 08/29/24 9:11:00 EST, Weight Dosing Follow-up With When Contact Information MELANY SCHUMACHER CNP, FAM Within 4 weeks [address] [place] [address] Business (1) Additional Instructions: Weight management Patient Education Obesity, Adult, Jlph-pr-Ljpr Problem List/Past Medical History Ongoing Anxiety, generalized Carpal tunnel syndrome of left wrist Chronic back pain GERD (gastroesophageal reflux disease) History of rotator cuff surgery Hypertension Major depressive disorder, single episode in full remission Mild persistent asthma Obesity due to excess calories Sciatica Sleep difficulties Historical BMI 39.0-39.9,adult Moderate depressive disorder Morbid obesity due to excess calories Obesity due to cancer therapy Procedure/Surgical H (more content not included)... Normal [facility] Comment on above: Result Comment: Elec tronically Signed By: MELANY SCHUMACHER CNP\.br\Date and Time Signed: 08/29/24 09:57 EST Ambulatory Visit Summaryon 1 08-15-2023 Ambulatory Visit [...] topical (Voltaren Arthritis Pain 1% topical gel) fluticasone-salmeter ol (Wixela Inhub 250 mcg-50 mcg inhalation powder) [...] Follow-Up Appointments Tuesday 8:00 AM EDT Where: [facility] Medicine [address] [address]- Medications What How Much When Why Instructions Unchanged albuterol (Albuterol (Eqv-Proventil HFA) 90 mcg/ inh inhalation aerosol) See instructions INHALE 1 PUFF BY MOUTH EVERY 4 HOURS NEEDED FOR WHEEZING OR SHORTNESS OF BREATH Unchanged diclofenac topical (Voltaren Arthritis Pain 1% topical gel) 2 Gram Topical 4 times a day Arthritis Unchanged fluticasone-salmeter ol (Wixela Inhub 250 mcg-50 mcg inhalation powder) [...] you for choosing us for your care. Normal [facility] Family Medicine Office/Clini c Noteon 06-14-2024 Family Medicine Office/Clinic Note Family Medicine [...] day(s), # 10 cap(s), Refills(s) 0, Pharmacy: [facility]/pharmacy #[id number], 161, cm, 06/14/24 10:48:00 EST, Height/Length Dosing, 92.5, kg, 06/14/24 10:48:00 EST, Weight Dosing 2. Body aches (R52: Pain, unspecified) POC Influenza positive Increase fluids Recommend OTC acetaminophen or ibuprofen f/u if no improvement in 3-5 days Ordered: oseltamivir, 75 mg = 1 cap(s), Oral, BID, X 5 day(s), # 10 cap(s), Refills(s) 0, Pharmacy: [facility]/pharmacy #[id number], 161, cm, 06/14/24 10:48:00 EST, Height/Length Dosing, 92.5, kg, 06/14/24 10:48:00 EST, Weight Dosing Influenza Type A&B POC 62007 Rapid COVID POC 22479 Follow-up No qualifying data available Patient Education Influenza, Adult, Ndqh-ap-Reov Problem List/Past Medical History Ongoing Anxiety, generalized [...] virus vaccine, (more content not included)... Normal [facility] Comment on above: Result Comment: Elec tronically Signed By: MELANY SCHUMACHER CNP\.br\Date and Time Signed: 06/14/24 11:08 EST Ambulatory Visit Summaryon 0 01-04-2024 Ambulatory Visit Summary Ambulatory Visit Summary DASHA MEJIA :1970 Visit Date:01/04/2024 Ambulatory Visit Instructions Your Diagnosis Encounter for weight management Obesity due to excess calories Non-smoker BMI 34.0-34.9,adult Your Care Team Attending Physician - MELANY SCHMUACHER CNP Primary Care Physician - MELANY SCHUMACHER CNP This Is Your Medications List phentermine (Adipex-P 37.5 mg Tab) Contact prescribing physician if questions or concerns Misc Prescription (Handicap placard) Misc Prescription (lift chair) albuterol (albuterol HFA 90 mcg/inh MDI) diclofenac topical (Voltaren Arthritis Pain 1% topical gel) fluticasone-salmeter ol (Wixela Inhub 250 mcg-50 mcg inhalation powder) ibuprofen (ibuprofen 800 mg Tab) Procedures Performed Tear of biceps tendon (11/24/2018), Appendectomy, Bilateral tubal ligation, Meniscectomy of knee, Rotator cuff, Rotator cuff, Tonsillectomy. Discharge Vitals Height 161 cm Height 63 in Weight 87.4 kg Weight 192.28 lb BMI 33.72 What to do next Scheduled Follow-Up Appointments Tuesday 1:40 PM EDT With: MELANY SCHUMACHER CNP Where: [facility] [place] Normal [address] [place] [address]- \.br\ Medications\.br\ What How Much When Why Instructions\.br\ Unchanged phentermine (Adipex-P 37.5 mg Tab) 1 Tablets By Mouth Every day Obesity due to excess calories Pickup at [facility] #[id number]\.br\ Unchanged albuterol (albuterol HFA 90 mcg/ inh [...] if questions or concerns \.br\ Pharmacy Information\.br\ [facility] #[id number]: [address] [place], [place] [id number] [phone]\.br\ Allergies\.br\ traMADol (Tachycardia, Nausea)\.br\ Problems\.br\ Ongoing - [...] your health care provider or diet and medical review specialist (dietitian). This may include:\.br\ ? \.br\ Eating [...] starting a new exercise program.\.br\ ? \.br\ [facility] Family Medicine Office/Clini c Noteon 01-04-2024 Family Medicine Office/Clinic Note Family Medicine Office/Clinic Note HPI Staff Dasha is a 53 year old female presenting 1 month follow up Weight management: Started Phentermine on 11/09/23 Sleeping well:Yes, 6-8 hours trouble falling asleep and staying asleep Chest pain:No Tremors:No Headaches:No Heart fluttering:No Blurred Vision:No Beginning weight: 200.6 Previous weight: 194 Today's weight: 192.6 Questions/Concerns: History of Present Illness Patient presents today in f/u for weight management. Patient has lost 2.5 pounds since her last visit. She is not exercising as much as she should but is using the leg cadd instructor at home. Patient reports no adverse effects [...] Daily, # 30 tab(s), Refills(s) 0, Pharmacy: [facility] #[id number], 161, cm, 01/04/24 13:52:00 EDT, Height/Length Dosing, [...] be appropriate. f/u in 4 weeks Orders: fluticasone-salmeter ol, See Instructions, 60 blister(s), Refill(s) 4, Inhale 1 puff by mouth twice daily. Rinse mouth and throat after use, [facility] #[id number], 161, cm, 10/12/23 8:32:00 EDT, Height/Length Dosing, 91.2, kg, 10/12/23 8:32:00 EDT, Weight Dosing Follow-up With When Contact Information MELANY SCHUMACHER CNP, FAM Within [address] [place] [address] [facility] (1) Additional Instructions: Weight management Patient Education [...] Abuse - (more content not included)... Normal [facility] Comment on above: Result Comment: Elec tronically Signed By: MELANY SCHUMACHER CNP\.br\Date and Time Signed: 01/04/24 14:15 EDT Coding Summary.on 12-21-2023 Coding Summary. ICOUWywi78VTg5rSz+PG hlYWQ+LS4RJPQfR56psT EdsP7yG1VKEZnTIdauEL EDCInUJyTbmmRcUA9uiX NjZXJu IC8+IU6bZMGhHbaobEZe o7M3hIO0N27gmy2zXLru rIN4GEEiCfVebxkni1ip bGm8UAylUkerUxRw WGPjeY77FDP1dA50Rk93 nEBheSDck6gmqKa1WaNd VGLqBBF4tQlcUPfqt0Nu AHLzO89huXUaa3T6 IGNvbGxhcHNlOyBlbXB0 tX8xDWviyeebn0hflbcd Cdh1vj63sTNbd4U2oJQ2 T0XhifS2GWCyhZEz NtwvcONJmW0rijcwy2vz hicsZhHyMEByYAz8JEd0 IBFciGvbYgMgSX51ZPV6 ISUvtvXkS6KtGOOk qCxlRzG5h8W3Bi9BQ0JA UaadT1CADOOEYPknnMM+ SH86bj63D9IsZzcqBup6 DTIsTOD8iTU2wA7i UYKjOAjlm5L8iPB4Y5Yx cgSqvc4op4fnEPNyZHff A14xsRSko6W2CHVamPI9 EEPwwOrrEbAmsF00 Oyc+RNBkdXbxq5KuKlzn n9xoo3ktnIg5CwbxYHYw viUsrBntFSD0v1QnAv6b WONxhOT7xUM8vV9s GmWnMmG4BUhfE058FmRu xBVmUpqoA65lT4PypQC+ XBDqOpb4JMMpxTvvZI2d G5FpQYHagxoahXVn hDklWA8lVIFghqgvZQMu xV8wOMKbE8a5ZfUfYqR6 HQnmJ3JwSOPfyfafWa03 zM0ePpAwJhX7SMle M5ClesX2YYYouYNvDKmd DIF1N19wf4F0BABaLYBd KQM1iGM4mG7sfTfyvlmd bGVmdDsgdmVydGlj RKfvUZacF005WUOggKbq PkNvZGluZyBEYXRlOiAg MDYvMjYvMjAyNDwvdGQ+ SCJiDBK8vTzrYZKi vQKxLZwyKt9syWkfzAyz WC3lOJUtiofsBWPspM1b UWVuyEMzsRynSE9gIMCd sjhzp475QcHqDYD6 QEEreRJjW8XpcM7fZvUd RVQzDGRmC5JeiWDdQQwr X240ZKysTcI3YZFsxoHv Q2ZbPEYykKaaMqR1 a8I5Dv9Yg4WyrafaH9Tz pUEmHtSpBqhoRXi0U7Oa PjwvdHI+EZ81XYCsIV83 FEf9WFL3cCzxVWsh OPIfJ2KisG1cLvDkQCMj ZGRkOyc+PHRhYmxlIHdp ZHRoPScxMDAlJyBzdHls SY1vIh9gXESzLLCy kVcmyYRxBxIcb1goYWSv XCnuAW3hcMpqL3LpwAH1 QKQxh3l5Is44T47vW9Cj dXA+DNGyoIK4xIX3 qS7xRuAyBfW8YIuyM450 NbDpvLZjKokai1ylj4rk fBc6WlC5VLDaesYdjToj QKT9f9MpZc73R49p IHdpZHRoPSIxNSUiIHZh sKnsdj0awU4mZf7+PGNv aRW7lJN4bP1cIaGdReM7 LZyvL448RuNsiZXo Fnzzr6das2ygmHl6NcZp RPBvgzYzfLdkZVV2c7En Hb17S2TatStkl1YnXpd7 qx82uMWum2K7kYS8 X9RnEIVsscqqxQXlyWcz BX4eFXRtvuhaJOUjxU1c JLUxT3n7LjIlIyH0RLht I3KfznH8YLYfvMTj FJJpbHBKrP4wvbxrb1wm ndinMbQsVPHvUZs1QLr0 WAWhrRdqNqIvOFA4IyE8 BHQ5vURylT5jeDql ntywdL3rRqo+PRG2uKXm uIQQBB3lSeiduOM+PHRk EOQ8nRzzYYpcWNUfxX6r BTIyI1e6UzUaMvD0 ZAlkY9OiayE7RASdvNWt BZZjyBLTrX9wetqzd1ci cnkjCbUfIOZtNVa4QTb5 LWFsaWduOiBsZWZ0 XvK7XXF8hUCkyP6xaQcs kwtfnH7bFgd+QmlydGgg CQR5OCe7I4ZnWxa9XAFd cWoeYC3cnMIjMSok Iz7vfIvmrKzcTP5wCDOo ijejb624PwCoo8niJMAb vPBdHQanUFG0S07bg9W3 MFZuKMHsFKR4wPL9 iE3qlYbkekkgeWBnhVbb rpGsuEpqKGggBHevG185 OXEvxQvaLkBoECy0J5Gk Yek0LPQruPtnTR0h rUOpTOcgEo1gpNxibSyn XX1gSJLkctnvz528RxNv n8azFLStvRAkALkuELU1 C90wt1X9IPIhNGSz KVO8qCE4pV9vsSwhxaak bGVmdDsgdmVydGljYWwt DNraK762ZFWaxJisAxGg mWz6G7VvCsu5DJQb oHduGK7mnOUeNLqaFj2q fWpntDypAC7xZLAwpxxp s337OrNmz6xzBMWrrDRh EJalJHQ9L32st2G9 VCAuDTObKWB9qFZ0yS9x bGlnbjogbGVmdDsgdmVy mGyoKVduJVdaA420GDUd cDsnPlBhdGllbnQg IHgmBVr7O7KrKmouoQV+ CY83YSBeKL18dTBqvMLg l5nilLg3NmZcFOLpVOB6 cJuwZCdly0FpXTNu V76tnGSsm4F6ASBisXfx qBYvHrVttMF1kH1zXDnt fffnx5uuztvoCqlin8sp do24xV50J16qSMmu ZHRoPSIzMCUiIHZhbGln yl8reE3lSn6+PGNvbCB3 gRW3lF1wWFUpBeX9OSqm R938CuVjfHNcUivd d5azo5uffWu1CcL8BTZm ucBjoAteLOK8l8UzEe75 B97hFXqvPIPdGLNaLKPe KLIfxRjsye0pzR1x Ii8+XDUluQT5lOM4nZ0s OfQzZbS5UBlwH554WwVq xMOeIatwU94fS9JwkNT+ AEHnUbz2YFBenRsy LA4gkQBoHMzxXo7oXBJ8 NzExDqLrGJfgP8HkRRWk untxivkyvYC8NYYgYGLn rL37Yb9tePtmWELd gMVDxM4ppnxlm2fidmjo FpRoIVRlVOh4VGj1LRVj rHacUoFdSPC2QsE9NBW3 iMPnrX9euFutlewq iQ1bO7TbALVbejurUz34 cJ9kKpNcOtN4EJdcJox+ QklMTEVSLCBLUklTVElF FGh4A3KxInu7VXMi jHolQZ8wzQHaDWbuTy7x xKkhyKmtVP1yUTGxujpv IJAioD9qPGKlcMLyyQyg NW9yLDEzjkuxm285 MoGaXDC0DLSwiAQoI0Bf aB4bUmGwENPoFWZxS4Cn sHUqMHbyK326OAogPmK0 PGDbmmIpE8MeEYEj oQvsUgF4i2V0Vw7bEH9l BS9fWOX2XH11LZ13mSZo e3I8xIF4C4NbIKIgswfm qcanfRI4GKHfAWQx vH02iEWkOIboRr3xv5R8 o258NQZmJBBjtM02Of2b xQheJNLreKGQlM8gmtir z4kufyrkZbXkCOAl FKv8KGv2RUUybIvkHrUf RZF1BgR4JZX9sYLzxC9k uVhkejqsjW9qWgv+NTQg WSHzhnS3M0NrMdf5 NUMlaGkkVH9mmJYcERnr Dg2yjEgkxIveDJ8lICJi geziHPLqmE2nFXLyrISz sNuiEG6aVVAslkxx a506KqYrKEU8CGXloABo V7NodR8zJlQkVOKrPZKw K7VukRXtQHebB479OReo GnT1OIJvrjOwH7Bt URPxgAceNuZ9f2Y7Wp2R VF4mqQQ9M4ElHwy4DGWn uVarZZ3tvRNbKVfpWu0z yFuwnJfcRZ5hGAXu osysVBAhlG0pMCYuiICk uBvcHV4zGZXmpazzn863 GkCeJHX7JQWvmVMsX3Cl zJ4pVdHfFFPnDBWz I6JcrOBrJUeoO676FIjq VdV7GCDizhXsA9TbEZTe lSmeDiR7j8E3Je3UxDKi QZObZB13FL81CB18 C0MfCppkqROekWS+PHRh YmxlIHdpZHRoPScxMDAl VqXvoGqgYA5xPq1dAIJk LWNvbGxhcHNlOiBj v3kwHXDuQAspRA4btXzz T1VtqLY9ICCoe4g1Bb65 Z82sQ7AvsUM+PGNvbCB3 vNZ2qM1xZsSqAtJ7 FZytO226TeFodKXsYtpw g1nex2kuwLy1TdBcOXHg hdXtsChgJCX8n2QxDi92 J57mOGkxOSFaNGCp PTYyLDUcxPggwe1ekT7m Ii8+OMHwlQY8qTR2aK8i WvNeHuM8GEbbD395JfEs oXRjDxtoY12uY3Ce dXA+AZMaMni6OHTfwLpd HP2zgSNqVXiuUb9zCJP0 QiUqCyVxQVmlD7RjPAEp xvgplroqrDS5XSEk OXRghM69Dd6pkVrjTp1u QRWsVLT1IMAajOIvL6Fc pP4uDtDgIGUoZZOyG2Vh lNAgJBcoH476YUxd YrK6OJUzuvIsX8QnYKIk jCxmRmV9g9X8Pw9DiRrx pLHdDQ1sTaVjQFr8R9Tq Nmx0PQJpgUjuMM8q qLApOJngLa5lwVjjzSsd EB1rMVXjzzsgt624KrGy x7ouSVKssSHbLSxjTTS2 O15os7I9XWReXPNz DGM5aVK5hD9xrPyuejgw bGVmdDsgdmVydGljYWwt KJtqJ935IXDgfIbkMaCG Fiu5O6AiBfo5GKXw uPrmXT8bqPSeFCjjPy8k lDtabShgSF8lJXIhgpku n643AzYmk8adMVLqzCHr NJvoTIR0Z08ne0O1 WPWmEHDuAHO8lUY5qS2b bGlnbjogbGVmdDsgdmVy kJezFPnmJHhgQ083TGXs lXqsRw3NCcw8P3Go Mct8YBCmrJdmQM4ocVLf MDzhTw5ufMuywVtoHB5f JZCxjhbvo165RbGrk1fg IDEwcHQgVGltZXM7 U30xu0K3BGWkPMExBKO3 iJQ9cE0fvWmiwxcwgEPf dDsgdmVydGljYWwtYWxp M775WDTsrOtwZeOw eWVyOjwvdGQ+IP95wo49 Y5XbOwvdCex1UIKcODB5 bUO6kB6oJEKcLZsgh5R3 lMR8W1ThezNlzd2c f9tuCUUtXIdpJ (more content not included)... Normal [facility] XR Knee Complete 4+ Views [facility] 12-15-2023 XR Knee Complete 4+ Views Left [...] by: Hiram Fraser Transcribed by: VICK Technologist: CC Technical Comments Radiation Dose: Ka,r in mGy = na DAP = na Normal [facility] Consent for Treatmenton 06- Consent for Treatment [id number] #1.00TIFF Normal [facility] Ambulatory Visit Summaryon 0 12-07-2023 Ambulatory Visit Summary DASHA MEJIA :1970 Visit Date:12/07/2023 Ambulatory Visit Instructions Your [...] topical (Voltaren Arthritis Pain 1% topical gel) fluticasone-salmeter ol (Advair 250 mcg-50 mcg Powder) fluticasone-salmeter ol (Advair Diskus 250 mcg-50 mcg inhalation powder) [...] AM EDT With: MELANY SCHUMACHER CNP Where: [facility] [place] Normal [address] [place] [address]- \.br\ You Need to Schedule the Following Appointments\.br\ Follow Up with MELAYN SCHUMACHER CNP, FAM When: Within 4 weeks\.br\ Comments:\.br\ Weight management\.br\ Where:\.br\ [address] [place] [address]\.br\ [place] [address]\.br\ Business (1)\.br\ \.br\ You Need to Complete the Following\.br\ XR Knee Complete 4+ Views Left, 12/07/23, Routine, Order for future visit, Transport Mode: Ambulatory, Reason: Pain, Non Traumatic, No, Knee pain, left, pp_set_radiology_ subspecialty, [facility] [place]\.br\ Medications\.br\ What How Much When Why Instructions\.br\ Unchanged phentermine (Adipex-P 37.5 mg Tab) 1 Tablets By Mouth Every day Obesity due to excess calories Pickup at [facility] #[id number]\.br\ Unchanged albuterol (albuterol HFA 90 mcg/ inh [...] if questions or concerns \.br\ Pharmacy Information\.br\ [facility] #[id number]: [address] [place], [place] [id number] [phone]\.br\ Allergies\.br\ traMADol (Tachycardia, Nausea)\.br\ Problems\.br\ Ongoing - [...] your health care provider or diet and medical review specialist (dietitian). This may include:\.br\ ? \.br\ Eating [...] farther away from your destination.\.br\ ? \.b [facility] Family Medicine Office/Clini bo [place] 12-07-2023 Family Medicine Office/Clinic Note HPI Staff Dasha is a 53 year old female presenting for 1 month follow up Weight management: Started Phentermine on 11/09/23 Sleeping well:no, dog keeps her up all night to go potty Chest pain:No Tremors:No Headaches:No Heart fluttering:No Blurred Vision:No Beginning weight: 200.64 Previous weight: same as above Today's weight: 194 lbs Questions/Concerns: had surgery about 2 years ago on [...] helps a little bit (Dr Fernandez in [place]) Needs her adipex refilled History of Present [...] Daily, # 30 tab(s), Refills(s) 0, Pharmacy: [facility] #[id number], 161, cm, 12/07/23 8:10:00 EDT, Height/Length Dosing, [...] Depression Sc (more content not included)... Normal [facility] Comment on above: Result Comment: Jolie wolff Signed By: MELANY SCHUMACHER CNP.gallo\Date and Time Signed: 12/07/23 10:57 EDT Patient [...] stiff or sore after exercising. Stretching and mujrw-om-ujcflj exercises Front thigh stretch 1. Stand up [...] foot on (more content not included)... Normal [facility] Ambulatory Visit Summaryon 0 11-09-2023 [...] topical (Voltaren Arthritis Pain 1% topical gel) fluticasone-salmeter ol (Advair 250 mcg-50 mcg Powder) fluticasone-salmeter ol (Advair Diskus 250 mcg-50 mcg inhalation powder) [...] AM EDT With: MELANY SCHUMACHER CNP Where: [facility] Normal [address] [place] [address]- \.br\ Medications\.br\ What How Much When Why [...] for choosing us for your care.\.br\ \.br\ [facility] Family Medicine Office/Clini c Noteon 11-09-2023 Family Medicine [...] BP 142/90 pulse ox 91%-has metallic nail lithuanian on. Patient denies SOB. History of Present [...] pain and is requesting to see a snowboarding instructor. Review of Systems PHQ Score Initial Depression [...] hours as needed for pain Referral to snowboarding instructor completed today Ordered: [facility] External Ambulatory Referral 2. Obesity due to [...] Daily, # 30 tab(s), Refills(s) 0, Pharmacy: [facility] #[id number], 161, cm, 11/09/23 8:04:00 EDT, Height/Length Dosing, 91.2, kg, 11/09/23 8:04:00 EDT, Weight Dosing [facility] External Ambulatory Referral Follow-up No qualifying data [...] History Diabetes mellit (more content not included)... [facility] Comment on above: Result Comment: Elec tronically Signed By: MELANY SCHUMACHER CNP\.gallo\Date and Time Signed: 11/09/23 11:04 EDT Physician Referralon 024 Physician Referral [id number]#1.00TIFF [facility] XR knee LT 3V - NOT FOR ER U [place] 12-21-2022 XR knee LT 3V - NOT FOR ER USE [facility] Main [address] [address] XRay Report Signed Patient: Dasha Mejia MR#: [id number] : 1970 Acct:[id number] Age/Sex: 52 / F ADM Date: 12/21/22 Loc: [facility] Room: Type: [facility] Attending Dr: Ariel Mckeon MD Copies to: [...] PROCESS. Impression dictated by: Julian Cortez Jr., D.OJillian12/21/2022 1:26 PM Dictation Location: [place] [address] Transcribed By: [facility] 12/21/22 1326 Dictated By: Julian Cortez Jr, DO 12/21/22 1325 Signed By: 12/21/22 1326 Normal [facility] Albumin [Mass/volume] in Ser um or PlasmaOrdered By: Ariel Mckeon on 08-11-2022 Albumin [Mass/Vol] 4.0 g/dL 3.2-5.5 [place] Basophils Auto (Bld) [#/Vol] Ordered By: Ariel Mckeon on 08-11-2022 Basophils (Bld) [#/Vol] 0.1 10*3/uL 0.0-0.2 [facility] Basophils/100 WBC Auto (Bld) Ordered By: Airel Mckeon on 08-11-2022 Basophils/100 WBC (Bld) 1.0 % . [facility] Complete Blood Count Auto Di ffon 08-11-2022 Basophils (Bld) [#/Vol] 0.1 10*3/uL Normal 0.0-0.2 [facility] Comment on above: Result Comment: PERF ORMED BY: [address] [place] [address] PATHOLOGIST GRAIN MIXER MANDY HWANG M.D. Performed By: #### C MP, CBC #### [address] Basophils/100 WBC (Bld) 1.0 % Normal . [facility] Comment on above: Performed By: #### C MP, CBC #### [place] [address] [place] Eosinophils (Bld) [#/Vol] 0.4 10*3/uL Normal 0.0-0.45 [facility] Comment on above: Performed By: #### C MP, CBC #### [address] Eosinophils/100 WBC (Bld) 5.3 % Normal . [facility] Comment on above: Performed By: #### C MP, CBC #### [address] Erythrocyte distribution width (RBC) [Ratio] 13.4 % Normal 11.9-15.3 [facility] Comment on above: Performed By: #### C MP, CBC #### [address] Hematocrit (Bld) [Volume fraction] 45.1 % Normal 34.0-46.4 [facility] Comment on above: Performed By: #### C MP, CBC #### [place] [address] [place] Hemoglobin (Bld) [Mass/Vol] 15.2 g/dL Normal 11.8-15.4 [facility] Comment on above: Performed By: #### C MP, CBC #### [place] [address] [place] Lymphocytes (Bld) [#/Vol] 2.7 10*3/uL Normal 1.00-4.8 [facility] Comment on above: Performed By: #### C MP, CBC #### [place] [address] [place] Lymphocytes/100 WBC (Bld) 32.5 % Normal . [facility] Comment on above: Performed By: #### C MP, CBC #### [facility] [address] MCH (RBC) [Entitic mass] 29.0 pg Normal 24.7-34.3 [facility] Comment on above: Performed By: #### C MP, CBC #### [address] MCV (RBC) [Entitic vol] 86.3 fL Normal 80-100 [facility] Comment on above: Performed By: #### C MP, CBC #### [address] Mean Corpuscular HGB Conc 33.6 g/dL Normal 32.0-35.0 [facility] Comment on above: Performed By: #### C MP, CBC #### [address] Monocytes (Bld) [#/Vol] 0.5 10*3/uL Normal 0.0-0.8 [facility] Comment on above: Performed By: #### C MP, CBC #### [address] Monocytes/100 WBC (Bld) 6.4 % Normal . [facility] Comment on above: Performed By: #### C MP, CBC #### [address] Neutrophils (Bld) [#/Vol] 4.5 10*3/uL Normal 1.8-7.7 [facility] Comment on above: Performed By: #### C MP, CBC #### [address] Neutrophils/100 WBC (Bld) 54.8 % Normal . [facility] Comment on above: Performed By: #### C MP, CBC #### [address] NRBC% 0.2 /100{WBC} Normal 0-0.5 [facility] Comment on above: Performed By: #### C MP, CBC #### [address] Platelet mean volume (Bld) [Entitic vol] 8.8 fL Normal 6.3-10.7 [facility] Comment on above: Performed By: #### C MP, CBC #### [address] Platelets (Bld) [#/Vol] 263 10*3/uL Normal 150-450 [facility] Comment on above: Performed By: #### C MP, CBC #### [address] RBC (Bld) [#/Vol] 5.22 10*6/uL High 3.60-5.00 [facility] Comment on above: Performed By: #### C MP, CBC #### [address] WBC (Bld) [#/Vol] 8.3 10*3/uL Normal 3.8-11.6 [place] Comment on above: Performed By: #### C MP, CBC #### [address] Comprehensive Metabolic Pane ravi 08-11-2022 Albumin [Mass/Vol] 4.0 g/dL Normal 3.2-5.5 [place] Comment on above: Performed By: #### C MP, CBC #### [address] Albumin/Globulin [Mass ratio] 1.5 {ratio} Normal [facility] Comment on above: Performed By: #### C MP, CBC #### [address] ALP [Catalytic activity/Vol] 85 U/L Normal 32-92 [facility] Comment on above: Result Comment: PERF ORMED BY: [place] [address] PATHOLOGIST [employer] MANDY HWANG M.D. Performed By: #### C MP, CBC #### [facility] [address] [id number] [facility] ALT [Catalytic activity/Vol] 27 U/L Normal 10-60 [facility] Comment on above: Performed By: #### C MP, CBC #### [facility] [address] Anion gap [Moles/Vol] 9.7 mmol/L Normal 6.0-15.0 [facility] Comment on above: Performed By: #### C MP, CBC #### [facility] [address] AST [Catalytic activity/Vol] 23 U/L Normal 10-42 [facility] Comment on above: Performed By: #### C MP, CBC #### [facility] [address] Bilirubin [Mass/Vol] 0.7 mg/dL Normal 0.3-1.[address] [facility] Comment on above: Performed By: #### C MP, CBC #### [facility] [address] Calcium [Mass/Vol] 9.5 mg/dL Normal 8.2-10.2 [place] Comment on above: Performed By: #### C MP, CBC #### [facility] [address] Chloride [Moles/Vol] 105 mmol/L Normal 95-[address] [facility] Comment on above: Performed By: #### C MP, CBC #### [facility] [address] [place] [address] [place] CO2 [Moles/Vol] 26.0 mmol/L Normal 22.0-30.0 [facility] Comment on above: Performed By: #### C MP, CBC #### [facility] [address] Creatinine [Mass/Vol] 0.91 mg/dL Normal 0.44-1.03 [facility] Comment on above: Performed By: #### C MP, CBC #### [facility] [address] Estimated GFR ( Ginger > 60 Normal [facility] Comment on above: Result Comment: GFR estimated reference range: According to KDOQI guidelines, <60 ml/min/1.73m2 is sufficient to diagnose a patient with chronic kidney disease. Performed By: #### C MP, CBC #### [address] Estimated GFR (Non- Am > 60 Normal [facility] Comment on above: Performed By: #### C MP, CBC #### [address] Globulin (S) [Mass/Vol] 2.6 g/dL Normal [facility] Comment on above: Performed By: #### C MP, CBC #### [address] Glucose [Mass/Vol] 99 mg/dL Normal 70-100 [place] Comment on above: Result Comment: [place] Glucose Reference Range is dependent on time and content of last meal. Glucose of more than 200 mg/dL in a nonstressed, ambulatory subject supports the diagnosis of Diabetes Mellitus. ADA recommended reference range Performed By: #### C MP, CBC #### [address] Potassium [Moles/Vol] 4.7 mmol/L Normal 3.5-5.1 [facility] Comment on above: Performed By: #### C MP, CBC #### [place] [address] [place] Protein [Mass/Vol] 6.6 g/dL Normal 6.1-7.9 [place] Comment on above: Performed By: #### C MP, CBC #### [place] [address] [place] Sodium [Moles/Vol] 136 mmol/L Normal 136-146 [place] Comment on above: Performed By: #### C MP, CBC #### [address] Urea nitrogen [Mass/Vol] 18 mg/dL Normal 9-23 [facility] Comment on above: Performed By: #### C MP, CBC #### [facility] [address] Creatinine and Glomerular fi ltration rate.predicted panel (S/P/Bld)Ordered By: Ariel Mckeon on 08-11-2022 Creatinine [Mass/Vol] 0.91 mg/dL 0.44-1.03 [facility] Eosinophils Auto (Bld) [#/Vo l]Ordered By: Ariel Mckeon on 08-11-2022 Eosinophils (Bld) [#/Vol] 0.4 10*3/uL 0.0-0.45 [facility] Eosinophils/100 WBC Auto (Bl d)Ordered By: Ariel Mckeon on 08-11-2022 Eosinophils/100 WBC (Bld) 5.3 % . [facility] Erythrocyte distribution wid th Auto (RBC) [Ratio]Ordered By: Ariel Mckeon on 08-11-2022 Erythrocyte distribution width (RBC) [Ratio] 13.4 % 11.9-15.3 [facility] Estimated glomerular filtrat ion rate (GFR) non- AmericanOrdered By: Ariel Mckeon on 08-11-2022 GFR/1.73 sq M.predicted among non-blacks MDRD (S/P/Bld) [Vol rate/Area] > 60 mL/Min [facility] Globulin Calc (S) [Mass/Vol] Ordered By: Ariel Mckeon on 08-11-2022 Globulin (S) [Mass/Vol] 2.6 g/dL [facility] Hematocrit Auto (Bld) [Volum e fraction]Ordered By: Ariel Mckeon on 08-11-2022 Hematocrit (Bld) [Volume fraction] 45.1 % 34.0-46.4 [facility] Hemoglobin [Mass/volume] in BloodOrdered By: Ariel Mckeon on 08-11-2022 Hemoglobin (Bld) [Mass/Vol] 15.2 g/dL 11.8-15.4 [facility] Leukocytes [#/volume] correc kristofer for nucleated erythrocytes in Blood by Automated counOrdered By: Ariel Mckeon on 08-11-2022 WBC corrected for nucl RBC Auto (Bld) [#/Vol] 8.3 10*3/uL 3.8-11.6 [facility] Lymphocytes Auto (Bld) [#/Vo l]Ordered By: Ariel Mckeon on 08-11-2022 Lymphocytes (Bld) [#/Vol] 2.7 10*3/uL 1.00-4.8 [facility] Lymphocytes/100 WBC Auto (Bl d)Ordered By: Ariel Mckeon on 08-11-2022 Lymphocytes/100 WBC (Bld) 32.5 % . [facility] MCH Auto (RBC) [Entitic mass ]Ordered By: Ariel Mckeon on 08-11-2022 MCH (RBC) [Entitic mass] 29.0 pg 24.7-34.3 [facility] MCHC Auto (RBC) [Mass/Vol]Or dered By: Ariel Mckeon on 08-11-2022 MCHC (RBC) [Mass/Vol] 33.6 g/dL 32.0-35.0 [facility] MCV Auto (RBC) [Entitic vol] Ordered By: Ariel Mckeon on 08-11-2022 MCV (RBC) [Entitic vol] 86.3 fL 80-100 [facility] Monocytes Auto (Bld) [#/Vol] Ordered By: Ariel Mckeon on 08-11-2022 Monocytes (Bld) [#/Vol] 0.5 10*3/uL 0.0-0.8 [facility] Monocytes/100 WBC Auto (Bld) Ordered By: Ariel Mckeon on 08-11-2022 Monocytes/100 WBC (Bld) 6.4 % . [facility] Neutrophils Auto (Bld) [#/Vo l]Ordered By: Ariel Mckeon on 08-11-2022 Neutrophils (Bld) [#/Vol] 4.5 10*3/uL 1.8-7.7 [facility] Neutrophils/100 WBC Auto (Bl d)Ordered By: Ariel Mckeon on 08-11-2022 Neutrophils/100 WBC (Bld) 54.8 % . [facility] No Panel InformationOrdered By: Ariel Mckeon on 08-11-2022 Estimated GFR () > 60 mL/Min [facility] Comment on above: GFR estimated refere nce range: According to KDOQI guidelines, <60 ml/min/1.73m2 is sufficient to diagnose a patient with chronic kidney disease. Pharmacy Creatinine Clearance (Chem N/A [facility] Nucleated erythrocytes [Pres ence] in Blood by Automated countOrdered By: Ariel Mckeon on 08-11-2022 Nucleated RBC Auto Ql (Bld) 0.2 /100{WBC} 0-0.5 [facility] Platelet mean volume Auto (B ld) [Entitic vol]Ordered By: Ariel Mckeon on 08-11-2022 Platelet mean volume (Bld) [Entitic vol] 8.8 fL 6.3-10.7 [facility] Platelets Auto (Bld) [#/Vol] Ordered By: Ariel Mckeon on 08-11-2022 Platelets (Bld) [#/Vol] 263 10*3/uL 150-450 [facility] Protein [Mass/volume] in Ser um or PlasmaOrdered By: Ariel Mckeon on 08-11-2022 Protein [Mass/Vol] 6.6 g/dL 6.1-7.9 [place] RBC Auto (Bld) [#/Vol]Ordere d By: Ariel Mckeon on 08-11-2022 RBC (Bld) [#/Vol] 5.22 10*6/uL 3.60-5.00 [facility] Serum or plasma alanine rendon otransferase measurement without P-5'-P (enzymatic activiOrdered By: Ariel Mckeon on 08-11-2022 ALT No additional P-5'-P [Catalytic activity/Vol] 27 U/L 10-60 [facility] Serum or plasma albumin/glob ulin mass ratioOrdered By: Ariel Mckeon on 08-11-2022 Albumin/Globulin [Mass ratio] 1.5 {ratio} [facility] Serum or plasma alkaline charles sphatase measurement (enzymatic activity/volume)Ordered By: Ariel Mckeon on 08-11-2022 ALP [Catalytic activity/Vol] 85 U/L 32-92 [facility] Serum or plasma anion gap de terminationOrdered By: Ariel Mckeon on 08-11-2022 Anion gap [Moles/Vol] 9.7 mmol/L 6.0-15.0 [facility] Serum or plasma aspartate am inotransferase measurement (enzymatic activity/volume)Ordered By: Ariel Mckeon on 08-11-2022 AST [Catalytic activity/Vol] 23 U/L 10-42 [facility] Serum or plasma calcium pauline urement (mass/volume)Ordered By: Ariel Mckeon on 08-11-2022 Calcium [Mass/Vol] 9.5 mg/dL 8.2-10.2 [place] Serum or plasma chloride ld surement (moles/volume)Ordered By: Ariel Mckeon on 08-11-2022 Chloride [Moles/Vol] 105 mmol/L 95-[address] [facility] Serum or plasma glucose pauline urement (mass/volume)Ordered By: Ariel Mckeon on 08-11-2022 Glucose [Mass/Vol] 99 mg/dL 70-100 [place] Comment on above: ADA recommended refe rence rangeRandom Glucose Reference Range is dependent on time and content of last meal. Glucose of more than 200 mg/dL in a nonstressed, ambulatory subject supports the diagnosis of Diabetes Mellitus. Serum or plasma potassium me asurement (moles/volume)Ordered By: Ariel Mckeon on 08-11-2022 Potassium [Moles/Vol] 4.7 mmol/L 3.5-5.1 [facility] Serum or plasma sodium measu rement (moles/volume)Ordered By: Ariel Mckeon on 08-11-2022 Sodium [Moles/Vol] 136 mmol/L 136-146 [place] Serum or plasma total biliru bin measurement (mass/volume)Ordered By: Ariel Mckeon on 08-11-2022 Bilirubin [Mass/Vol] 0.7 mg/dL 0.3-1.[address] [facility] Serum or plasma total carbon dioxide measurement (moles/volume)Ordered By: Ariel Mckeon on 08-11-2022 CO2 [Moles/Vol] 26.0 mmol/L 22.0-30.0 [facility] Serum or plasma urea nitroge n measurement (mass/volume)Ordered By: Ariel Mckeon on 08-11-2022 Urea nitrogen [Mass/Vol] 18 mg/dL 9-23 [facility] WBC Auto (Bld) [#/Vol]Ordere d By: Ariel Mckeon on 08-11-2022 WBC (Bld) [#/Vol] 8.3 10*3/uL 3.8-11.6 [place] CHEMISTRYOrdered By: SYSTEM SYSTEM on 07-08-2022 25-hydroxyvitamin D3 [Mass/Vol] 15.3 ng/mL Low 30.0 - 100.0 ng/mL [facility] Remisol ALP [Catalytic activity/Vol] 81 [iU]/d Normal 21 - 98 Int._Unit/L [facility] Rem[facility] ALT No additional P-5'-P [Catalytic activity/Vol] 23 [iU]/d Normal 6 - 46 Int._Unit/L [facility] Anion gap [Moles/Vol] 11 mmol/L Normal 6 - 16 mEq/L [facility] AST [Catalytic activity/Vol] 19 [iU]/d Normal 5 - 43 Int._Unit/L [facility] Cholesterol [Mass/Vol] 194 mg/dL Normal 120 - 200 mg/dL [facility] Cholesterol in HDL [Mass/Vol] 48 [...] ravi 07-08-2022 ALP [Catalytic activity/Vol] 81 U/L [facility] ALT [Catalytic activity/Vol] 23 U/L [facility] Other AST [Catalytic activity/Vol] 19 U/L [facility] Other Comprehensive Metabolic Panel [facility] Comprehensive Metabolic Panel >60 [facility] Other Comprehensive Metabolic Panel 3.3 [facility] Other Laboratory - Chemistry and C hemistry - challengeOrdered By: SYSTEM SYSTEM on 07-08-2022 Albumin [Mass/Vol] 4.3 g/dL [facility] em[facility] Albumin/Globulin [Mass ratio] 1.3 {ratio} [facility] Bilirubin [Mass/Vol] 0.7 mg/dL [facility] Calcium [Mass/Vol] 9.5 mg/dL [facility] Chloride [Moles/Vol] 103 mmol/L [facility] CO2 [Moles/Vol] 27 mmol/L [facility] carmelo Creatinine [Mass/Vol] 0.9 mg/dL [facility] Glucose [Mass/Vol] 86 mg/dL [facility] Potassium [Moles/Vol] 4.0 mmol/L [facility] Protein [Mass/Vol] 7.6 g/dL [facility] Sodium [Moles/Vol] 137 mmol/L [facility] Urea nitrogen [Mass/Vol] 18 mg/dL [facility] Thyroid Stim Hormone w/Rflxo n 07-08-2022 Thyroid Stim Hormone w/Rflx 2.39 [facility] Vitamin D 25 Hydroxy Totalon 07-08-2022 Vitamin D 25 Hydroxy Total 15.3 [facility] Other MR knee LT wo conon 05-21-20 MR knee LT wo con [address] [address] MRI Report Signed Patient: Dasha Mejia MR#: [id number] : 1970 Acct:[id number] Age/Sex: 52 / F ADM Date: 05/21/22 Loc: MR Room: Type: [facility] Attending Dr: Ariel Mckeon MD Copies to: [...] CHANGE. Impression dictated by: Julian Cortez Jr., D.OJillian05/21/2022 1:36 PM Dictation Location: [place] [address] Transcribed By: [facility] 05/21/22 1336 Dictated By: Julian Cortez Jr, DO 05/21/22 1327 Signed By: 05/21/22 1336 Normal [facility] XR knee BI 2Von 05-10-2022 XR knee BI 2V [facility] Main [place] [id number] XRay Report Signed Patient: Dasha Mejia MR#: [id number] 87 : 1970 Acct:[id number] Age/Sex: 52 / F ADM Date: 05/10/22 Loc: [facility] Room: Type: [facility] CLI Attending Dr: Ariel Mckeon MD Copies to: Ariel Mckeon MD Ordering Provider: Ariel Mckeon MD Date of Service: 05/10/22 XR/XR [...] Wally Short M.D.05/10/2022 2:45 PM Dictation Location: [place] [address] Transcribed By: [facility] 05/10/22 1445 Dictated By: Wally Short II, MD 05/10/22 1439 Signed By: 05/10/22 1445 Normal [facility] XR shoulder RT min 2V*on XR shoulder RT min 2V* [facility] Main [place] [address] [place] [address] XRay Report Signed Patient: Dasha Mejia MR#: [id number] 87 : 1970 Acct:[id number] Age/Sex: 52 / F ADM Date: 04/12/22 Loc: [facility] Room: Type: REG CLI Attending Dr: Ariel Mckeon MD Copies to: [...] Socorro Leonard M.D.04/12/2022 2:07 PM Dictation Location: [facility] Transcribed By: [facility] 04/12/221406 Dictated By: Socorro Leonard MD 04/12/221404 Signed By: 04/12/221406 Normal [facility] COVID[facility]19 [facility] SARS-CoV-2 (COVID-19) RNA ANANT+probe Ql (Unsp spec) Negative Normal Negative [facility] Comment on above: Order Comment: Healt hcare Worker?: N Result Comment: Testing for SARS-CoV-2 by RT-PCR This test was developed and its performance characteristics determined by [employer]) and validated at the [facility]. This test has not been FDA [...] is terminated or revoked sooner. PERFORMED BY: [address] [place] [address] PATHOLOGIST [employer] MANDY HWANG M.D. Performed By: #### C OVID 19 [facility] #### [address] [place] [address] [facility] COVID-19 Positive/NegativeOr dered By: Ariel Mckeon on 03-29-2022 SARS-CoV-2 (COVID-19) N gene ANANT+probe Ql (Resp) Negative Negative [facility] Comment on above: Testing for SARS-CoV -2 by RT-PCRThis test was developed and its performance characteristics determined by [employer] ([employer]) and validated at the [facility]. This test has not been FDA [...] 03-22-2022 Basophils (Bld) [#/Vol] 0.1 10*3/uL 0.0-0.2 [facility] Basophils/100 WBC Auto (Bld) Ordered By: Ariel Mckeon on 03-22-2022 Basophils/100 WBC (Bld) 0.8 % . [facility] Blood hemoglobin measurement (mass/volume)Ordered By: Ariel Mckeon on 03-22-2022 Hemoglobin (Bld) [Mass/Vol] 15.0 g/dL 11.8-15.4 [facility] Blood leukocytes automated c ount (number/volume)Ordered By: Ariel Mckeon on 03-22-2022 WBC (Bld) [#/Vol] 8.1 10*3/uL 4.5-11.0 [place] Body fluid albumin measureme nt (mass/volume)Ordered By: Ariel Mckeon on 03-22-2022 Albumin (Body fld) [Mass/Vol] 3.7 g/dL 3.2-5.5 [facility] Complete Blood Count Auto Di ffon 03-22-2022 Basophils (Bld) [#/Vol] 0.1 10*3/uL Normal 0.0-0.2 [facility] Comment on above: Result Comment: PERF ORMED BY: [place] [address] PATHOLOGIST [employer] MANDY HWANG M.D. Performed By: #### C MP, CBC #### [address] Basophils/100 WBC (Bld) 0.8 % Normal . [facility] Comment on above: Performed By: #### C MP, CBC #### [address] Eosinophils (Bld) [#/Vol] 0.3 10*3/uL Normal 0.0-0.45 [facility] Comment on above: Performed By: #### C MP, CBC #### [place] [address] [place] Eosinophils/100 WBC (Bld) 3.3 % Normal . [facility] Comment on above: Performed By: #### C MP, CBC #### [address] Erythrocyte distribution width (RBC) [Ratio] 12.8 % Normal 11.9-15.3 [facility] Comment on above: Performed By: #### C MP, CBC #### [place] [address] [place] Hematocrit (Bld) [Volume fraction] 45.5 % Normal 34.0-46.4 [facility] Comment on above: Performed By: #### C MP, CBC #### [address] Hemoglobin (Bld) [Mass/Vol] 15.0 g/dL Normal 11.8-15.4 [facility] Comment on above: Performed By: #### C MP, CBC #### [facility] [address] Lymphocytes (Bld) [#/Vol] 1.9 10*3/uL Normal 1.00-4.8 [facility] Comment on above: Performed By: #### C MP, CBC #### [facility] [address] Lymphocytes/100 WBC (Bld) 23.7 % Normal . [facility] Comment on above: Performed By: #### C MP, CBC #### [address] MCH (RBC) [Entitic mass] 29.4 pg Normal 24.7-34.3 [facility] Comment on above: Performed By: #### C MP, CBC #### [address] MCV (RBC) [Entitic vol] 89.3 fL Normal 80-100 [facility] Comment on above: Performed By: #### C MP, CBC #### [address] Mean Corpuscular HGB Conc 32.9 g/dL Normal 32.0-35.0 [facility] Comment on above: Performed By: #### C MP, CBC #### [address] Monocytes (Bld) [#/Vol] 0.5 10*3/uL Normal 0.0-0.8 [facility] Comment on above: Performed By: #### C MP, CBC #### [place] [address] [place] Monocytes/100 WBC (Bld) 6.6 % Normal . [facility] Comment on above: Performed By: #### C MP, CBC #### [address] Neutrophils (Bld) [#/Vol] 5.3 10*3/uL Normal 1.8-7.7 [facility] Comment on above: Performed By: #### C MP, CBC #### [address] Neutrophils/100 WBC (Bld) 65.6 % Normal . [facility] Comment on above: Performed By: #### C MP, CBC #### [address] Nucleated RBC/100 WBC (Bld) [Ratio] 0.1 % Normal 0-0.5 [facility] Comment on above: Performed By: #### C MP, CBC #### [address] Platelet mean volume (Bld) [Entitic vol] 9.1 fL Normal 6.3-10.7 [facility] Comment on above: Performed By: #### C MP, CBC #### [address] Platelets (Bld) [#/Vol] 275 10*3/uL Normal 150-450 [facility] Comment on above: Performed By: #### C MP, CBC #### [address] RBC (Bld) [#/Vol] 5.10 10*6/uL High 3.60-5.00 [facility] Comment on above: Performed By: #### C MP, CBC #### [address] WBC (Bld) [#/Vol] 8.1 10*3/uL Normal 4.5-11.0 [place] Comment on above: Performed By: #### C MP, CBC #### [address] Comprehensive Metabolic Pane ravi 03-22-2022 Albumin [Mass/Vol] 3.7 g/dL Normal 3.2-5.5 [place] Comment on above: Performed By: #### C MP, CBC #### [address] Albumin/Globulin [Mass ratio] 1.3 {ratio} Normal [facility] Comment on above: Performed By: #### C MP, CBC #### [address] ALP [Catalytic activity/Vol] 74 U/L Normal 32-92 [facility] Comment on above: Result Comment: PERF ORMED BY: [place] [address] PATHOLOGIST [employer] MANDY HWANG M.D. Performed By: #### C MP, CBC #### [address] ALT [Catalytic activity/Vol] 25 U/L Normal 10-60 [facility] Comment on above: Performed By: #### C MP, CBC #### [address] Anion gap [Moles/Vol] 12.7 mmol/L Normal 6.0-15.0 [facility] Comment on above: Performed By: #### C MP, CBC #### [address] AST [Catalytic activity/Vol] 20 U/L Normal 10-42 [facility] Comment on above: Performed By: #### C MP, CBC #### [address] Bilirubin [Mass/Vol] 0.5 mg/dL Normal 0.3-1.[address] [facility] Comment on above: Performed By: #### C MP, CBC #### [address] Calcium [Mass/Vol] 9.6 mg/dL Normal 8.2-10.2 [place] Comment on above: Performed By: #### C MP, CBC #### [place] [address] [place] Chloride [Moles/Vol] 103 mmol/L Normal 95-[address] [facility] Comment on above: Performed By: #### C MP, CBC #### [place] [address] [place] CO2 [Moles/Vol] 25.9 mmol/L Normal 22.0-30.0 [facility] Comment on above: Performed By: #### C MP, CBC #### [address] Creatinine [Mass/Vol] 0.84 mg/dL Normal 0.44-1.03 [facility] Comment on above: Performed By: #### C MP, CBC #### [address] Estimated GFR ( Ginger > 60 Normal [facility] Comment on above: Result Comment: GFR estimated reference range: According to KDOQI guidelines, <60 ml/min/1.73m2 is sufficient to diagnose a patient with chronic kidney disease. Performed By: #### C MP, CBC #### [address] Estimated GFR (Non- Am > 60 Normal [facility] Comment on above: Performed By: #### C MP, CBC #### [address] Globulin (S) [Mass/Vol] 2.8 g/dL Normal [facility] Comment on above: Performed By: #### C MP, CBC #### [address] Glucose [Mass/Vol] 94 mg/dL Normal 70-100 [place] Comment on above: Result Comment: [place] Glucose Reference Range is dependent on time and content of last meal. Glucose of more than 200 mg/dL in a nonstressed, ambulatory subject supports the diagnosis of Diabetes Mellitus. ADA recommended reference range Performed By: #### C MP, CBC #### [address] Potassium [Moles/Vol] 4.6 mmol/L Normal 3.5-5.1 [facility] Comment on above: Performed By: #### C MP, CBC #### [address] Protein [Mass/Vol] 6.5 g/dL Normal 6.1-7.9 [place] Comment on above: Performed By: #### C MP, CBC #### [facility] [address] Sodium [Moles/Vol] 137 mmol/L Normal 136-146 [place] Comment on above: Performed By: #### C MP, CBC #### [facility] [address] Urea nitrogen [Mass/Vol] 15 mg/dL Normal 9-23 [facility] Comment on above: Performed By: #### C MP, CBC #### [facility] [address] Creatinine and Glomerular fi ltration rate.predicted panel (S/P/Bld)Ordered By: Ariel Mckeon on 03-22-2022 Creatinine [Mass/Vol] 0.84 mg/dL 0.44-1.03 [facility] ECG 12 lead ECGon 03-22-2022 ECG 12 lead ECG [facility] Main [place] [address] [place] [address] Electrocardiograph Report Signed Patient: Dasha Mejia MR#: [id number] : 1970 Acct:[id number] Age/Sex: 52 / F ADM Date: 03/22/22 Loc: Room: Type: [facility] Attending Dr: Ariel Mckeon MD Ordering Provider: [...] previous ECGs available Confirmed by [facility] Soriano ([id number]) on 03/23/2022 7:29:59 AM Referred By: DONNA MCKEON Electronically Signed By:MIGUEL ALCAZAR MD [facility] Transcribed By: [facility] Signed By Waldo Alcazar MD 03/23/22 0730 Normal [facility] Eosinophils Auto (Bld) [#/Vo l]Ordered By: Ariel Mckeon on 03-22-2022 Eosinophils (Bld) [#/Vol] 0.3 10*3/uL 0.0-0.45 [facility] Eosinophils/100 WBC Auto (Bl d)Ordered By: Ariel Mckeon on 03-22-2022 Eosinophils/100 WBC (Bld) 3.3 % . [facility] Erythrocyte distribution wid th Auto (RBC) [Ratio]Ordered By: Ariel Mckeon on 03-22-2022 Erythrocyte distribution width (RBC) [Ratio] 12.8 % 11.9-15.3 [facility] Estimated glomerular filtrat ion rate (GFR) non- AmericanOrdered By: Ariel Mckeon on 03-22-2022 GFR/1.73 sq M.predicted among non-blacks MDRD (S/P/Bld) [Vol rate/Area] > 60 mL/Min [facility] Globulin Calc (S) [Mass/Vol] Ordered By: Ariel Mckeon on 03-22-2022 Globulin (S) [Mass/Vol] 2.8 g/dL [facility] Hematocrit Auto (Bld) [Volum e fraction]Ordered By: Ariel Mckeon on 03-22-2022 Hematocrit (Bld) [Volume fraction] 45.5 % 34.0-46.4 [facility] Laboratory - Hematology and Cell countsOrdered By: Ariel Mckeon on 03-22-2022 Nucleated RBC/100 WBC (Bld) [Ratio] 0.1 % 0-0.5 [facility] Lymphocytes Auto (Bld) [#/Vo l]Ordered By: Ariel Mckeon on 03-22-2022 Lymphocytes (Bld) [#/Vol] 1.9 10*3/uL 1.00-4.8 [facility] Lymphocytes/100 WBC Auto (Bl d)Ordered By: Ariel Mckeon on 03-22-2022 Lymphocytes/100 WBC (Bld) 23.7 % . [facility] MCH Auto (RBC) [Entitic mass ]Ordered By: Ariel Mckeon on 03-22-2022 MCH (RBC) [Entitic mass] 29.4 pg 24.7-34.3 [facility] MCHC Auto (RBC) [Mass/Vol]Or dered By: Arile Mckeon on 03-22-2022 MCHC (RBC) [Mass/Vol] 32.9 g/dL 32.0-35.0 [facility] MCV Auto (RBC) [Entitic vol] Ordered By: Ariel Mckeon on 03-22-2022 MCV (RBC) [Entitic vol] 89.3 fL 80-100 [facility] Monocytes Auto (Bld) [#/Vol] Ordered By: Ariel Mckeon on 03-22-2022 Monocytes (Bld) [#/Vol] 0.5 10*3/uL 0.0-0.8 [facility] Monocytes/100 WBC Auto (Bld) Ordered By: Ariel Mckeon on 03-22-2022 Monocytes/100 WBC (Bld) 6.6 % . [facility] Neutrophils Auto (Bld) [#/Vo l]Ordered By: Ariel Mckeon on 03-22-2022 Neutrophils (Bld) [#/Vol] 5.3 10*3/uL 1.8-7.7 [facility] Neutrophils/100 WBC Auto (Bl d)Ordered By: Ariel Mckeon on 03-22-2022 Neutrophils/100 WBC (Bld) 65.6 % . [facility] No Panel InformationOrdered By: Ariel Mckeon on 03-22-2022 Estimated GFR () > 60 mL/Min [facility] Comment on above: GFR estimated refere nce range: According to KDOQI guidelines, <60 ml/min/1.73m2 is sufficient to diagnose a patient with chronic kidney disease. Pharmacy Creatinine Clearance (Chem N/A [facility] Platelet mean volume Auto (B ld) [Entitic vol]Ordered By: Ariel Mckeon on 03-22-2022 Platelet mean volume (Bld) [Entitic vol] 9.1 fL 6.3-10.7 [facility] Platelets Auto (Bld) [#/Vol] Ordered By: Ariel Mckeon on 03-22-2022 Platelets (Bld) [#/Vol] 275 10*3/uL 150-450 [facility] Protein [Mass/volume] in Ser um or PlasmaOrdered By: Ariel Mckeon on 03-22-2022 Protein [Mass/Vol] 6.5 g/dL 6.1-7.9 [place] RBC Auto (Bld) [#/Vol]Ordere d By: Ariel Mckeon on 03-22-2022 RBC (Bld) [#/Vol] 5.10 10*6/uL 3.60-5.00 [facility] Serum or plasma alanine rendon otransferase measurement without P-5'-P (enzymatic activiOrdered By: Ariel Mckeon on 03-22-2022 ALT No additional P-5'-P [Catalytic activity/Vol] 25 U/L 10-60 [facility] Serum or plasma albumin/glob ulin mass ratioOrdered By: Ariel Mckeon on 03-22-2022 Albumin/Globulin [Mass ratio] 1.3 {ratio} [facility] Serum or plasma alkaline charles sphatase measurement (enzymatic activity/volume)Ordered By: Ariel Mckeon on 03-22-2022 ALP [Catalytic activity/Vol] 74 U/L 32-92 [facility] Serum or plasma anion gap de terminationOrdered By: Ariel Mckeon on 03-22-2022 Anion gap [Moles/Vol] 12.7 mmol/L 6.0-15.0 [facility] Serum or plasma aspartate am inotransferase measurement (enzymatic activity/volume)Ordered By: Ariel Mckeon on 03-22-2022 AST [Catalytic activity/Vol] 20 U/L 10-42 [facility] Serum or plasma calcium pauline urement (mass/volume)Ordered By: rAiel Mckeon on 03-22-2022 Calcium [Mass/Vol] 9.6 mg/dL 8.2-10.2 [place] Serum or plasma chloride ld surement (moles/volume)Ordered By: Ariel Mckeon on 03-22-2022 Chloride [Moles/Vol] 103 mmol/L 95-[address] [facility] Serum or plasma glucose pauline urement (mass/volume)Ordered By: Ariel Mckeon on 03-22-2022 Glucose [Mass/Vol] 94 mg/dL 70-100 [place] Comment on above: ADA recommended refe rence rangeRandom Glucose Reference Range is dependent on time and content of last meal. Glucose of more than 200 mg/dL in a nonstressed, ambulatory subject supports the diagnosis of Diabetes Mellitus. Serum or plasma potassium me asurement (moles/volume)Ordered By: Ariel Mckeon on 03-22-2022 Potassium [Moles/Vol] 4.6 mmol/L 3.5-5.1 [facility] Serum or plasma sodium measu rement (moles/volume)Ordered By: Ariel Mckeon on 03-22-2022 Sodium [Moles/Vol] 137 mmol/L 136-146 [place] Serum or plasma total biliru bin measurement (mass/volume)Ordered By: Ariel Mckeon on 03-22-2022 Bilirubin [Mass/Vol] 0.5 mg/dL 0.3-1.[address] [facility] Serum or plasma total carbon dioxide measurement (moles/volume)Ordered By: Ariel Mckeon on 03-22-2022 CO2 [Moles/Vol] 25.9 mmol/L 22.0-30.0 [facility] Serum or plasma urea nitroge n measurement (mass/volume)Ordered By: Ariel Mckoen on 03-22-2022 Urea nitrogen [Mass/Vol] 15 mg/dL 03-19 [facility] MR shoulder RT wo conon - [place] [address] MRI Report Signed Patient: Dasha Mejia MR#: [id number] [birth year] : 1970 Acct:[id number] Age/Sex: 52 / F ADM Date: 02/24/22 Loc: [facility] Room: Type: [facility] Attending Dr: Ariel Mckeon MD Copies to: [...] Wally Short M.D.02/24/2022 2:37 PM Dictation Location: [place] [address] Transcribed By: CLOTILDE 02/24/22 1437 Dictated By: Wally Short II, MD 02/24/22 1427 Signed By: 02/24/22 1437 [facility] XR SHOULDER RIGHT (MIN 2 VIE WS)on 08-28-2021 Normal right shoulder. [facility] EXAM: XR SHOULDER RIGHT (MIN 2 VIEWS) HISTORY: M25.511. 51-year-old female, right shoulder pain. COMPARISON: None. TECHNIQUE: Right shoulder three views, four images. FINDINGS: Acromioclavicular and glenohumeral joints are normal. Negative for calcific bursitis. [facility] Fish Wright Jr., MD - 08/28/2021 EXAM: XR SHOULDER RIGHT (MIN 2 VIEWS) HISTORY: M25.511. 51-year-old female, right shoulder pain. COMPARISON: None. TECHNIQUE: Right shoulder three views, four images. FINDINGS: Acromioclavicular and glenohumeral joints are normal. Negative for calcific bursitis. IMPRESSION: Normal right shoulder. [employer] Phone: Radiology Study observation (narrative) [employer] Phone: XR SHOULDER RIGHT (MIN 2 VIE WS)Ordered By: Fish Wright on 08-28-2021 [employer] Phone: MRI KNEE LEFT WO CONTRASTon 05-06-2021 1. There appears to be at least [...] synovitis. 4. No ligament injury is seen. [facility] HISTORY: Pain along the lateral aspect [...] signal intensity. There is no Lacey's cyst. [facility] Wynot, Geo Olivares MD - 05/06/2021 HISTORY: Pain [...] synovitis. 4. No ligament injury is seen. [employer] Phone: Radiology Study observation (narrative) [employer] Phone: MRI KNEE LEFT WO CONTRASTOrd ered By: Geo Hughes on 05-06-2021 [employer] Phone: COVID-19, RapidOrdered By: Yamilet Aguila on 04-03-2021 SARS-CoV-2 (COVID-19) RNA ANANT+probe Ql (Unsp spec) Not detected Not Detected [employer] Phone: Comment on above: Rapid NAAT: The [...] management decisions. Fact sheet for Healthcare Providers: https://www.fda.gov/media/730049/download Fact sheet for Patients: https://www.fda.gov/media/926282/download Methodology: Isothermal Nucleic Acid Amplification Specimen Description .NASOPHARYNGEAL SWAB [employer] Phone: [employer] Phone: MRI KNEE RIGHT WO CONTRASTOr dered By: [...] patellar apex. 4. Small ruptured Lacey cyst. [employer] Phone: EXAM: MRI KNEE RIGHT WO CONTRAST [...] planes. No acute bony abnormality is identified. [employer] Phone: Luis, Mhpn Incoming Radiant Results From [facility] - 02/20/2021 11:28 AM EDT EXAM: MRI [...] patellar apex. 4. Small ruptured Lacey cyst. [employer] Phone: [employer] Phone: XR KNEE RIGHT (MIN 4 VIEWS)O rdered By: Cleopatra Payan on 02-06-2021 Early degenerative changes mainly opposite left knee. [employer] Phone: EXAM: XR KNEE RIGHT (MIN 4 [...] right knee for age. No joint effusion. [employer] Phone: Luis, Mhpn Incoming Radiant Results From [employer] - 02/06/2021 11:00 AM EDT EXAM: XR [...] Early degenerative changes mainly opposite left knee. [employer] Phone: [employer] Phone: Basic Metabolic PanelOrdered By: Cleopatra Payan on 01-21-2021 Anion gap [Moles/Vol] 13 mmol/L 9 - 17 mmol/L [employer] Phone: Calcium [Mass/Vol] 9.6 mg/dL 8.6 - 10.4 mg/dL [employer] Phone: Chloride [Moles/Vol] 102 mmol/L 98 - 107 mmol/L [employer] Phone: CO2 [Moles/Vol] 25 mmol/L 20 - 31 mmol/L [employer] Phone: Creatinine [Mass/Vol] 0.83 mg/dL 0.50 - 0.90 mg/dL [employer] Phone: GFR >60 >60 mL/min [employer] Phone: GFR Non- >60 >60 mL/min [employer] Phone: Glucose [Mass/Vol] 93 mg/dL 70 - 99 mg/dL [employer] Work Phone: Interpretation and review of laboratory results Abnormal [facility] [employer] Phone: Potassium [Moles/Vol] 4.9 mmol/L 3.7 - 5.3 mmol/L [facility] [employer] Phone: Sodium [Moles/Vol] 140 mmol/L 135 - 144 mmol/L [facility] [employer] Phone: Urea nitrogen (BldV) [Mass/Vol] 19 mg/dL 6 - 20 mg/dL [facility] [employer] Phone: Urea nitrogen/Creatinine (Bld) [Mass ratio] 23 High [facility] [employer] Phone: [facility] [employer] Phone: Basic Metabolic Profon 01-21 (cont.) Normal [facility] Comment on above: Result Comment: Aver age GFR for 50-59 years old: 93 mL/min/1.73sq m Chronic Kidney Disease: <60 mL/min/1.73sq m Kidney failure: <15 mL/min/1.73sq m eGFR calculated using average adult body mass. Additional eGFR calculator available at: http://www.Ambitious Minds/multiple_crcl_2011.htm Performed By: #### C DP, BMP #### [facility] [address] [place] [address] Supervisor Mapping: Matthew Borja MD Anion gap [Moles/Vol] 13 mmol/L Normal - [facility] Comment on above: Performed By: #### C DP, BMP #### [facility] [address] [place] [address] Supervisor Mapping: Matthew Borja MD BUN/CRE Ratio 23 High - [facility] Comment on above: Performed By: #### C DP, BMP #### [facility] [address] [place] [address] Supervisor Mapping: Matthew Borja MD Calcium [Mass/Vol] 9.6 mg/dL Normal 8.6-10.4 [facility] Comment on above: Performed By: #### C DP, BMP #### [facility] [address] [place], [place] [id number] Supervisor Mapping: Matthew Borja MD Chloride [Moles/Vol] 102 mmol/L Normal 98-107 [facility] Comment on above: Performed By: #### C DP, BMP #### [facility] [address] [place], [place] [id number] Supervisor Mapping: Matthew Borja MD CO2 [Moles/Vol] 25 mmol/L Normal 20-31 [facility] Comment on above: Performed By: #### C DP, BMP #### [facility] [address] [place], [place] [id number] Supervisor Mapping: Matthew Borja MD Creatinine [Mass/Vol] 0.83 mg/dL Normal 0.50-0.90 [facility] Comment on above: Performed By: #### C DP, BMP #### [facility] [address] [place], [place] [id number] Supervisor Mapping: Matthew Borja MD GFR, Amer >60 Normal >60 [facility] Comment on above: Performed By: #### C DP, BMP #### [facility] [address] [place], [place] [address] Supervisor Mapping: Matthew Borja MD GFR,non Amer >60 Normal >60 [facility] Comment on above: Performed By: #### C DP, BMP #### [facility] [address] [place], [place] [address] Supervisor Mapping: Matthew Borja MD Glucose [Mass/Vol] 93 mg/dL Normal 70-99 [facility] Comment on above: Performed By: #### C DP, BMP #### [facility] [address] [place], [place] [address] Supervisor Mapping: Matthew Borja MD Potassium [Moles/Vol] 4.9 mmol/L Normal 3.7-5.3 [facility] Comment on above: Performed By: #### C DP, BMP #### [facility] [address] [place] [address] Supervisor Mapping: Matthew Borja MD Sodium [Moles/Vol] 140 mmol/L Normal 135-144 [facility] Comment on above: Performed By: #### C DP, BMP #### [facility] [address] [place] [address] Supervisor Mapping: Matthew Borja MD Staging: Normal [facility] Comment on above: Result Comment: Stag e 1: Some kidney damage normal GFR Stage 2: Mild kidney damage GFR 60-89 Stage 3: Moderate kidney damage GFR 30-59 Stage 4: Severe kidney damage GFR 15-29 Stage 5: Severe kidney damage GFR <15 ESRD - chronic treatment by dialysis or transplant Performed By: #### C DP, BMP #### [facility] [address] [place] [address] Supervisor Mapping: Matthew Borja MD Urea nitrogen [Mass/Vol] 19 mg/dL Normal 6-20 [facility] Comment on above: Performed By: #### C DP, BMP #### [facility] [address] [place] [address] Supervisor Mapping: Matthew Borja MD CBC Auto DifferentialOrdered By: Cleopatra Payan on 01-21-2021 [employer] # 0.39 [facility] Work Phone: Absolute Immature Granulocyte <0.03 [facility] Work Phone: Absolute Lymph # 2.64 [facility] Work Phone: Absolute [place] # 0.56 [facility] Work Phone: Basophils (Bld) [#/Vol] 10*3/uL [facility] Work Phone: Basophils/100 WBC (Bld) 0 % 0 - 2 % [employer] Phone: Differential Type NOT REPORTED [employer] Phone: Eosinophils/100 WBC (Bld) 5 % High 1 - 4 % [employer] Phone: Hematocrit (Bld) [Volume fraction] 44.2 % 36.3 - 47.1 % [employer] Phone: Hemoglobin.gastroint estinal spec 1 Ql (Stl) 14.2 g/dL 11.9 - 15.1 g/dL [employer] Phone: Immature granulocytes/100 WBC (Bld) 0 % 0 [employer] Phone: Interpretation and review of laboratory results Abnormal [employer] Phone: Lymphocytes/100 WBC (Bld) 34 % 24 - 43 % [employer] Phone: MCH (RBC) [Entitic mass] 29.8 pg 25.2 - 33.5 pg [employer] Phone: MCHC (RBC) [Mass/Vol] 32.1 g/dL 28.4 - 34.8 g/dL [employer] Phone: MCV (RBC) [Entitic vol] 92.7 fL 82.6 - 102.9 fL [employer] Phone: Monocytes/100 WBC (Bld) 7 % 3 - 12 % [employer] Phone: NRBC Automated 0.0 0.0 per 100 WBC [employer] Phone: Platelet distribution width (Bld) [Ratio] 12.5 % 11.8 - 14.4 % [employer] Phone: Platelet Estimate NOT REPORTED [employer] Phone: Platelet mean volume (Bld) [Entitic vol] 10.2 fL 8.1 - 13.5 fL [employer] Work Phone: Platelets (Bld) [#/Vol] 267 10*3/uL [employer] Phone: RBC (Bld) [#/Vol] 4.77 10*6/uL 3.95 - 5.11 m/uL [employer] Phone: RBC (Bld) [#/Vol] NOT REPORTED [employer] Phone: Segmented neutrophils/100 WBC (Bld) 54 % 36 - 65 % [employer] Work Phone: Segs Absolute 4.08 [employer] Work Phone: WBC (Bld) [#/Vol] 7.7 10*3/uL [employer] Phone: WBC (Bld) [#/Vol] NOT REPORTED [employer] Phone: [employer] Phone: CBC with Diffon 01-21-2021 Abs. Basophil <0.03 Normal 0.00-0.20 [facility] Comment on above: Performed By: #### C DP, BMP #### [facility] [address] [place] [address] [place] [address] Supervisor Mapping: Matthew Borja MD Abs.Imm.Granulocyte <0.03 Normal 0.00-0.30 [facility] Comment on above: Performed By: #### C DP, BMP #### [facility] [address] [place] [address] Supervisor Mapping: Matthew Borja MD Abs.Neutrophil (Seg) 4.08 k/uL Normal 1.50-8.10 [facility] Comment on above: Performed By: #### C DP, BMP #### [facility] [address] [place] [address] Supervisor Mapping: Matthew Borja MD Basophils/100 WBC (Bld) 0 % Normal 0-2 [facility] Comment on above: Performed By: #### C DP, BMP #### [address] [place], [place] [id number] Supervisor Mapping: Matthew Borja MD Eosinophils (Bld) [#/Vol] 0.39 10*3/uL Normal 0.00-0.44 [facility] Comment on above: Performed By: #### C DP, BMP #### [address] [place] [address] Supervisor Mapping: Matthew Borja MD Eosinophils/100 WBC (Bld) 5 % High 1-4 [facility] Comment on above: Performed By: #### C DP, BMP #### [address] [place], [place] [address] Supervisor Mapping: Matthew Borja MD Erythrocyte distribution width (RBC) [Ratio] 12.5 % Normal 11.8-14.4 [facility] Comment on above: Performed By: #### C DP, BMP #### [address] [place], [place] [address] Supervisor Mapping: Matthew Borja MD Hematocrit (Bld) [Volume fraction] 44.2 % Normal 36.3-47.1 [facility] Comment on above: Performed By: #### C DP, BMP #### [address] [place], [place] [address] Supervisor Mapping: Matthew Borja MD Hemoglobin (Bld) [Mass/Vol] 14.2 g/dL Normal 11.9-15.1 [facility] Comment on above: Performed By: #### C DP, BMP #### [address] [place] [address] Supervisor Mapping: Matthew Borja MD Immature granulocytes/100 WBC (Bld) 0 % Normal 0 [facility] Comment on above: Performed By: #### C DP, BMP #### [facility] [address] [place], [facility]83 Supervisor Mapping: Matthew Borja MD Lymphocytes (Bld) [#/Vol] 2.64 10*3/uL Normal 1.10-3.70 [facility] Comment on above: Performed By: #### C DP, BMP #### [facility] [address] [place], [facility]83 Supervisor Mapping: Matthew Borja MD Lymphocytes/100 WBC (Bld) 34 % Normal 24-43 [facility] Comment on above: Performed By: #### C DP, BMP #### [address] [place], [facility]83 Supervisor Mapping: Matthew Borja MD MCH (RBC) [Entitic mass] 29.8 pg Normal 25.2-33.5 [facility] Comment on above: Performed By: #### C DP, BMP #### [address] [place], [facility]83 Supervisor Mapping: Matthew Borja MD MCHC (RBC) [Mass/Vol] 32.1 g/dL Normal 28.4-34.8 [facility] Comment on above: Performed By: #### C DP, BMP #### [address] [place], [place] [address] Supervisor Mapping: Matthew Borja MD MCV (RBC) [Entitic vol] 92.7 fL Normal 82.6-102.9 [facility] Comment on above: Performed By: #### C DP, BMP #### [address] [place] [address] Supervisor Mapping: Matthew Borja MD Monocytes (Bld) [#/Vol] 0.56 10*3/uL Normal 0.10-1.20 [facility] Comment on above: Performed By: #### C DP, BMP #### [facility] [address] [place], [place] [address] Supervisor Mapping: Matthew Borja MD Monocytes/100 WBC (Bld) 7 % Normal 3-12 [facility] Comment on above: Performed By: #### C DP, BMP #### [facility] [address] [place], [place] [address] Supervisor Mapping: Matthew Borja MD Neutrophil (Seg) 54 % Normal 36-65 [facility] Comment on above: Performed By: #### C DP, BMP #### [facility] [address] [place], [place] [address] Supervisor Mapping: Matthew Borja MD NRBC Automated 0.0 per 100 WBC Normal 0.0 [facility] Comment on above: Performed By: #### C DP, BMP #### [address] [place], [place] [id number] Supervisor Mapping: Matthew Borja MD Platelet mean volume (Bld) [Entitic vol] 10.2 fL Normal 8.1-13.5 [facility] Comment on above: Performed By: #### C DP, BMP #### [address] [place], [place] [address] Supervisor Mapping: Matthew Borja MD Platelets (Bld) [#/Vol] 267 10*3/uL Normal 138-453 [facility] Comment on above: Performed By: #### C DP, BMP #### [facility] [address] [place], [place] [address] Supervisor Mapping: Matthew Borja MD RBC (Bld) [#/Vol] 4.77 10*6/uL Normal 3.95-5.11 [facility] Comment on above: Performed By: #### C DP, BMP #### [address] [place] [address] Supervisor Mapping: Matthew Borja MD WBC (Bld) [#/Vol] 7.7 10*3/uL Normal 3.5-11.3 [facility] Comment on above: Performed By: #### C DP, BMP #### [facility] [address] [place], [place] [address] Supervisor Mapping: Matthew Borja MD Auto Diff Performed NOT REPORTED Normal [facility] Comment on above: Performed By: #### C DP, BMP #### [facility] [address] [place] [address] Supervisor Mapping: Matthew Borja MD Platelet Estimate NOT REPORTED Normal [facility] Comment on above: Performed By: #### C DP, BMP #### [facility] [address] [place] [address] [address], [place] [phone] Supervisor Mapping: Matthew Borja MD RBC morphology finding Nom (Bld) NOT REPORTED Normal [facility] Comment on above: Performed By: #### C DP, BMP #### [facility] [address] [place] [address] Supervisor Mapping: Matthew Borja MD WBC Morphology NOT REPORTED Normal [facility] Comment on above: Performed By: #### C DP, BMP #### [facility] [address] [place] [address] Dr[address] [place], [place] [address] Supervisor Mapping: Matthew Borja MD Laboratory - Chemistry and C hemistry - challengeOrdered By: Cleopatra Payan on 01-21-2021 GFR/1.73 sq M.predicted MDRD (S/P/Bld) [Vol rate/Area] [facility] Work Phone: Comment on above: Average GFR for 50-5 9 years old: 93 mL/min/1.73sq m Chronic Kidney Disease: <60 mL/min/1.73sq m Kidney failure: <15 mL/min/1.73sq m eGFR calculated using average adult body mass. Additional eGFR calculator available at: http://www.Roombeats.Nogacom/multiple_crcl_2012.htm Stage 1: Some kidney damage normal GFR Stage 2: Mild kidney damage GFR 60-89 Stage 3: Moderate kidney damage GFR 30-59 Stage 4: Severe kidney damage GFR 15-29 Stage 5: Severe kidney damage GFR <15 ESRD - chronic treatment by dialysis or transplant COVID-19Ordered By: Ronak leahy on 12-09-2020 SARS-CoV-2 (COVID-19) RNA ANANT+probe Ql (Unsp spec) Not detected Not Detected [employer] Phone: Comment on above: The specimen is NEGATIVE for SARS-CoV-2, the novel coronavirus associated with COVID-19. A negative result does not rule out COVID-19. This test has been authorized by the FDA under an Emergency Use Authorization (EUA) for use by authorized laboratories. SIPX SARS-CoV-2 Reagents for [employer] are designed to detect the virus that causes COVID-19 in patients with signs and symptoms of infection who are suspected of COVID-19. An individual without symptoms of COVID-19 and who is not shedding SARS-CoV-2 virus would expect to have a negative (not detected) result in this assay. Fact sheet for Healthcare Providers: https://www.fda.gov/media/950645/download Fact sheet for Patients: https://www.fda.gov/media/770165/download METHODOLOGY: RT-PCR SARS-CoV-2 (COVID-19) RNA ANANT+probe Ql (Unsp spec) [employer] Phone: Source .THROAT [employer] Phone: [employer] Phone: Basic Metabolic PanelOrdered By: Josephine Márquez on 12-05-2020 Anion gap [Moles/Vol] 9 mmol/L 9 - 17 mmol/L [employer] Phone: Calcium [Mass/Vol] 9.8 mg/dL 8.6 - 10.4 mg/dL [employer] Phone: Chloride [Moles/Vol] 100 mmol/L 98 - 107 mmol/L [employer] Phone: CO2 [Moles/Vol] 27 mmol/L 20 - 31 mmol/L [facility] Phone: Creatinine [Mass/Vol] 0.87 mg/dL 0.50 - 0.90 mg/dL [facility] [employer] Phone: GFR >60 >60 mL/min [facility] [employer] Phone: GFR Non- >60 >60 mL/min [facility] [employer] Phone: Glucose [Mass/Vol] 117 mg/dL High 70 - 99 mg/dL [facility] [employer] Phone: Interpretation and review of laboratory results Abnormal [facility] [employer] Phone: Potassium [Moles/Vol] 4.2 mmol/L 3.7 - 5.3 mmol/L [facility] [employer] Phone: Sodium [Moles/Vol] 136 mmol/L 135 - 144 mmol/L [facility] [employer] Phone: Urea nitrogen (BldV) [Mass/Vol] 18 mg/dL 6 - 20 mg/dL [facility] [employer] Phone: Urea nitrogen/Creatinine (Bld) [Mass ratio] 21 High [facility] [employer] Phone: [facility] Phone: Basic Metabolic Profon 12-05 (cont.) Normal [facility] Comment on above: Result Comment: Aver age GFR for 50-59 years old: 93 mL/min/1.73sq m Chronic Kidney Disease: <60 mL/min/1.73sq m Kidney failure: <15 mL/min/1.73sq m eGFR calculated using average adult body mass. Additional eGFR calculator available at: http://www.Roombeats.Nogacom/multiple_crcl_2012.htm Performed By: #### B MP, CDP #### [facility] [address] [place] [address] [place] [address] Supervisor Mapping: Matthew Borja MD Anion gap [Moles/Vol] 9 mmol/L Normal 9-17 [facility] Comment on above: Performed By: #### B NOEMY, CDP #### [facility] [address] [place], [place] [address] Supervisor Mapping: Matthew Borja MD BUN/CRE Ratio 21 High 9-20 [facility] Comment on above: Performed By: #### B MP, CDP #### [facility] [address] [place], [place] [address] Supervisor Mapping: Matthew Borja MD Calcium [Mass/Vol] 9.8 mg/dL Normal 8.6-10.4 [facility] Comment on above: Performed By: #### B NOEMY, CDP #### [facility] [address] [place], [place] [address] Supervisor Mapping: Matthew Borja MD Chloride [Moles/Vol] 100 mmol/L Normal 98-107 [facility] Comment on above: Performed By: #### B NOEMY, CDP #### [facility] [address] [place], [place] [address] Supervisor Mapping: Matthew Borja MD CO2 [Moles/Vol] 27 mmol/L Normal 20-31 [facility] Comment on above: Performed By: #### B NOEMY, CDP #### [facility] [address] [place], [place] [address] Supervisor Mapping: Matthew Borja MD Creatinine [Mass/Vol] 0.87 mg/dL Normal 0.50-0.90 [facility] Comment on above: Performed By: #### B NOEMY, CDP #### [facility] [address] [place], [place] [address] Supervisor Mapping: Matthew Borja MD GFR, Amer >60 Normal >60 [facility] Comment on above: Performed By: #### B NOEMY, CDP #### [facility] [address] [place] [id number] Supervisor Mapping: Matthew Borja MD GFR,non Amer >60 Normal >60 [facility] Comment on above: Performed By: #### B MP, CDP #### [facility] [address] [place], [place] 2305383 Supervisor Mapping: Matthew Borja MD Glucose [Mass/Vol] 117 mg/dL High 70-99 [facility] Comment on above: Performed By: #### B MP, CDP #### [facility] [address] [place], [place] [address] Supervisor Mapping: Matthew Borja MD Potassium [Moles/Vol] 4.2 mmol/L Normal 3.7-5.3 [facility] Comment on above: Performed By: #### B NOEMY, CDP #### [facility] [address] [place], [place] [address] Supervisor Mapping: Matthew Borja MD Sodium [Moles/Vol] 136 mmol/L Normal 135-144 [facility] Comment on above: Performed By: #### B NOEMY, CDP #### [facility] [address] [place], [place] [id number] Supervisor Mapping: Matthew Borja MD Staging: Normal [facility] Comment on above: Result Comment: Stag e 1: Some kidney damage normal GFR Stage 2: Mild kidney damage GFR 60-89 Stage 3: Moderate kidney damage GFR 30-59 Stage 4: Severe kidney damage GFR 15-29 Stage 5: Severe kidney damage GFR <15 ESRD - chronic treatment by dialysis or transplant Performed By: #### B NOEMY, CDP #### [facility] [address] [place], [place] [address] Supervisor Mapping: Matthew Borja MD Urea nitrogen [Mass/Vol] 18 mg/dL Normal 6-20 [facility] Comment on above: Performed By: #### B NOEMY, CDP #### [facility] [address] [place] [address] Supervisor Mapping: Matthew Borja MD CBC Auto DifferentialOrdered By: Josephine Márquez on 12-05-2020 [employer] # 0.38 [employer] [facility] Work Phone: Absolute Immature Granulocyte <0.03 [employer] Work Phone: Absolute Lymph # 2.64 [employer] [facility] Work Phone: [employer] [place] # 0.61 [employer] [facility] Work Phone: Basophils (Bld) [#/Vol] 10*3/uL [employer] Work Phone: Basophils/100 WBC (Bld) 0 % 0 - 2 % [employer] Phone: Differential Type NOT REPORTED [employer] Phone: Eosinophils/100 WBC (Bld) 5 % High 1 - 4 % [employer] Work Phone: Hematocrit (Bld) [Volume fraction] 42.5 % 36.3 - 47.1 % [employer] Work Phone: Hemoglobin.gastroint estinal spec 1 Ql (Stl) 14.1 g/dL 11.9 - 15.1 g/dL [employer] Phone: Immature granulocytes/100 WBC (Bld) 0 % 0 [employer] Phone: Interpretation and review of laboratory results Abnormal [employer]: Lymphocytes/100 WBC (Bld) 32 % 24 - 43 % [employer]: MCH (RBC) [Entitic mass] 30.5 pg 25.2 - 33.5 pg [employer] Work Phone: MCHC (RBC) [Mass/Vol] 33.2 g/dL 28.4 - 34.8 g/dL [employer] Phone: MCV (RBC) [Entitic vol] 92.0 fL 82.6 - 102.9 fL [employer] Work Phone: Monocytes/100 WBC (Bld) 7 % 3 - 12 % [employer]: NRBC Automated 0.0 0.0 per 100 WBC [employer] Phone: Platelet distribution width (Bld) [Ratio] 12.5 % 11.8 - 14.4 % [employer] Phone: Platelet Estimate NOT REPORTED [employer] Phone: Platelet mean volume (Bld) [Entitic vol] 9.7 fL 8.1 - 13.5 fL [employer] Phone: Platelets (Bld) [#/Vol] 257 10*3/uL [employer] Phone: RBC (Bld) [#/Vol] 4.62 10*6/uL 3.95 - 5.11 m/uL [employer] Phone: RBC (Bld) [#/Vol] NOT REPORTED [employer]: Segmented neutrophils/100 WBC (Bld) 56 % 36 - 65 % [employer]: Segs Absolute 4.70 [employer] Work Phone: WBC (Bld) [#/Vol] 8.4 10*3/uL [employer] Work Phone: WBC (Bld) [#/Vol] NOT REPORTED [employer] Phone: [employer] Work Phone: CBC with Diffon 12-05-2020 Abs. Basophil <0.03 Normal 0.00-0.20 [facility] Comment on above: Performed By: #### B MP, CDP #### [facility] [address] [place] [address] Supervisor Mapping: Matthew Borja MD Abs.Imm.Granulocyte <0.03 Normal 0.00-0.30 [facility] Comment on above: Performed By: #### B NOEMY, CDP #### [address] [place], [place] [id number] Supervisor Mapping: Matthew Borja MD Abs.Neutrophil (Seg) 4.70 k/uL Normal 1.50-8.10 [facility] Comment on above: Performed By: #### B NOEMY, CDP #### [address] [place], [place] [id number] Supervisor Mapping: Matthew Borja MD Basophils/100 WBC (Bld) 0 % Normal 0-2 [facility] Comment on above: Performed By: #### B NOEMY, CDP #### [address] [place], [facility]83 Supervisor Mapping: Matthew Borja MD Eosinophils (Bld) [#/Vol] 0.38 10*3/uL Normal 0.00-0.44 [facility] Comment on above: Performed By: #### B NOEMY, CDP #### [address] [place], [place] [id number] Supervisor Mapping: Matthew Borja MD Eosinophils/100 WBC (Bld) 5 % High 1-4 [facility] Comment on above: Performed By: #### B NOEMY, CDP #### [address] [place], [place] 1136383 Supervisor Mapping: Matthew Borja MD Erythrocyte distribution width (RBC) [Ratio] 12.5 % Normal 11.8-14.4 [facility] Comment on above: Performed By: #### B NOEMY, CDP #### [address] [place], [place] [id number] Supervisor Mapping: Matthew Borja MD Hematocrit (Bld) [Volume fraction] 42.5 % Normal 36.3-47.1 [facility] Comment on above: Performed By: #### B NOEMY, CDP #### [facility] [address] [place], [place] [id number] Supervisor Mapping: Matthew Borja MD Hemoglobin (Bld) [Mass/Vol] 14.1 g/dL Normal 11.9-15.1 [facility] Comment on above: Performed By: #### B MP, CDP #### [address] [place], [place] [id number] Supervisor Mapping: Matthew Borja MD Immature granulocytes/100 WBC (Bld) 0 % Normal 0 [facility] Comment on above: Performed By: #### B MP, CDP #### [address] [place], [place] 125[address]183 Supervisor Mapping: Matthew Borja MD Lymphocytes (Bld) [#/Vol] 2.64 10*3/uL Normal 1.10-3.70 [facility] Comment on above: Performed By: #### B MP, CDP #### [address] [place], [place] [id number] Supervisor Mapping: Matthew Borja MD Lymphocytes/100 WBC (Bld) 32 % Normal 24-43 [facility] Comment on above: Performed By: #### B MP, CDP #### [address] [place] [address] Supervisor Mapping: Matthew Borja MD MCH (RBC) [Entitic mass] 30.5 pg Normal 25.2-33.5 [facility] Comment on above: Performed By: #### B MP, CDP #### [address] [place], [place] [id number] Supervisor Mapping: Matthew Borja MD MCHC (RBC) [Mass/Vol] 33.2 g/dL Normal 28.4-34.8 [facility] Comment on above: Performed By: #### B MP, CDP #### [address] [place], [place] 8[address]83 Supervisor Mapping: Matthew Borja MD MCV (RBC) [Entitic vol] 92.0 fL Normal 82.6-102.9 [facility] Comment on above: Performed By: #### B NOEMY, CDP #### [facility] [address] [place] [address] [place], [place] [id number] Supervisor Mapping: Matthew Borja MD Monocytes (Bld) [#/Vol] 0.61 10*3/uL Normal 0.10-1.20 [facility] Comment on above: Performed By: #### B NOEMY, CDP #### [address] [place], [place] [id number] Supervisor Mapping: Matthew Borja MD Monocytes/100 WBC (Bld) 7 % Normal 3-12 [facility] Comment on above: Performed By: #### B NOEMY, CDP #### [address] [place], [facility]83 Supervisor Mapping: Matthew Borja MD Neutrophil (Seg) 56 % Normal 36-65 [facility] Comment on above: Performed By: #### B NOEMY, CDP #### [address] [place], [place] [id number] Supervisor Mapping: Matthew Borja MD NRBC Automated 0.0 per 100 WBC Normal 0.0 [facility] Comment on above: Performed By: #### B NOEMY, CDP #### [address] [place], [place] [id number] Supervisor Mapping: Matthew Borja MD Platelet mean volume (Bld) [Entitic vol] 9.7 fL Normal 8.1-13.5 [facility] Comment on above: Performed By: #### B MP, CDP #### [address] [place], [place] [id number] Supervisor Mapping: Matthew Borja MD Platelets (Bld) [#/Vol] 257 10*3/uL Normal 138-453 [facility] Comment on above: Performed By: #### B MP, CDP #### [facility] [address] [place], [place] [id number] Supervisor Mapping: Matthew Borja MD RBC (Bld) [#/Vol] 4.62 10*6/uL Normal 3.95-5.11 [facility] Comment on above: Performed By: #### B MP, CDP #### [facility] [address] [place], [place] [id number] Supervisor Mapping: Matthew Borja MD WBC (Bld) [#/Vol] 8.4 10*3/uL Normal 3.5-11.3 [facility] Comment on above: Performed By: #### B MP, CDP #### [facility] [address] [place], [place] [id number] Supervisor Mapping: Matthew Borja MD Auto Diff Performed NOT REPORTED Normal [facility] Comment on above: Performed By: #### B MP, CDP #### [facility] [address] [place], [place] 5558083 Supervisor Mapping: Matthew Borja MD Platelet Estimate NOT REPORTED Normal [facility] Comment on above: Performed By: #### B MP, CDP #### [facility] [address] [place] [address] [place] [place], [place] [id number] Supervisor Mapping: Matthew Borja MD RBC morphology finding Nom (Bld) NOT REPORTED Normal [facility] Comment on above: Performed By: #### B MP, CDP #### [facility] [address] [place], [place] [id number] Supervisor Mapping: Matthew Borja MD WBC Morphology NOT REPORTED Normal [facility] Comment on above: Performed By: #### B MP, CDP #### [facility] [address] [place], [place] 306[address]83 Supervisor Mapping: Matthew Borja MD Laboratory - Chemistry and C hemistry - challengeOrdered By: Josephine Márquez on 12-05-2020 GFR/1.73 sq M.predicted MDRD (S/P/Bld) [Vol rate/Area] [facility] Work Phone: Comment on above: Average GFR for 50-5 9 years old: 93 mL/min/1.73sq m Chronic Kidney Disease: <60 mL/min/1.73sq m Kidney failure: <15 mL/min/1.73sq m eGFR calculated using average adult body mass. Additional eGFR calculator available at: http://www.[employer]/multiple_crcl_2012.htm Stage 1: Some kidney damage normal GFR Stage 2: Mild kidney damage GFR 60-89 Stage 3: Moderate kidney damage GFR 30-59 Stage 4: Severe kidney damage GFR 15-29 Stage 5: Severe kidney damage GFR <15 ESRD - chronic treatment by dialysis or transplant COVID-19on 07-18-2020 SARS-CoV-2, Rapid Not Detected Not Detected [place] Comment on above: Rapid NAAT: The [...] management decisions. Fact sheet for Healthcare Providers: https://www.fda.gov/media/419937/download Fact sheet for Patients: https://www.fda.gov/media/573530/download Methodology: Isothermal Nucleic Acid Amplification Source .THROAT [place] Otheron 07-18-2020 SARS-CoV-2 [place] EKG 12 Leadon 07-14-2020 Atrial Rate 70 BPM [place] P Greene 48 degrees [place] P-R Interval 176 ms [place] Q-T Interval 394 ms [place] QRS Duration 92 ms [place] QTc Calculation (Bazett) 425 ms [place] R Greene -6 degrees [facility], [place] T Greene 38 degrees [place] Ventricular Rate 70 BPM [place], [place] Normal sinus rhythm Normal ECG When compared with ECG of 13-JAN-2000 08:30, No significant change was found Confirmed by CLEOPATRA PINEDA ([id number]) on 07/14/2020 11:52:46 PM [place] Luis, Mhpn Incoming Ekg Results From [facility] [place] - 07/14/2020 11:52 PM EST Normal sinus rhythm Normal ECG When compared with ECG of 13-JAN-2000 08:30, No significant change was found Confirmed by CLEOPATRA PINEDA ([id number]) on 07/14/2020 11:52:46 PM [place] Basic Metabolic Panelon 06-27 Anion gap [Moles/Vol] 8 mmol/L Low 9 - 17 mmol/L [place] Bun/Cre Ratio 26 High [place] Calcium [Mass/Vol] 9.0 mg/dL 8.6 - 10.4 mg/dL [place] Chloride [Moles/Vol] 104 mmol/L 98 - 107 mmol/L [place] CO2 [Moles/Vol] 26 mmol/L 20 - 31 mmol/L [place] Creatinine [Mass/Vol] 0.68 mg/dL 0.5 - 0.9 mg/dL [place] GFR >60 >60 mL/min [place], [place] GFR Non- >60 >60 mL/min [place] Glucose [Mass/Vol] 100 mg/dL High 70 - 99 mg/dL [place] Interpretation and review of laboratory results Abnormal [place] Potassium [Moles/Vol] 4.3 mmol/L 3.7 - 5.3 mmol/L [place] Sodium [Moles/Vol] 138 mmol/L 135 - 144 mmol/L [place] Urea nitrogen [Mass/Vol] 18 mg/dL 6 - 20 mg/dL [place] Basic Metabolic Profon 07-09 (cont.) Normal [facility] Comment on above: Result Comment: Aver age GFR for 50-59 years old: 93 mL/min/1.73sq m Chronic Kidney Disease: <60 mL/min/1.73sq m Kidney failure: <15 mL/min/1.73sq m eGFR calculated using average adult body mass. Additional eGFR calculator available at: http://www.[employer]/multiple_crcl_2012.htm Performed By: #### B NOEMY, CDP #### [facility] [address] [place] [address] Supervisor Mapping: Matthew Borja MD Anion gap [Moles/Vol] 8 mmol/L Low 9-17 [facility] Comment on above: Performed By: #### B NOEMY, CDP #### [facility] [address] [place] [address] Supervisor Mapping: Matthew Borja MD BUN/CRE Ratio 26 High 9-20 [facility] Comment on above: Performed By: #### B NOEMY, CDP #### [facility] [address] [place], [place] [id number] Supervisor Mapping: Matthew Borja MD Calcium [Mass/Vol] 9.0 mg/dL Normal 8.6-10.4 [facility] Comment on above: Performed By: #### B NOEMY, CDP #### [facility] [address] [place] [address] Supervisor Mapping: Matthew Borja MD Chloride [Moles/Vol] 104 mmol/L Normal 98-107 [facility] Comment on above: Performed By: #### B NOEMY, CDP #### [facility] [address] [place] [address] Supervisor Mapping: Matthew Borja MD CO2 [Moles/Vol] 26 mmol/L Normal 20-31 [facility] Comment on above: Performed By: #### B MP, CDP #### [facility] [address] [place], [place] 0743383 Supervisor Mapping: Matthew Borja MD Creatinine [Mass/Vol] 0.68 mg/dL Normal 0.50-0.90 [facility] Comment on above: Performed By: #### B MP, CDP #### [facility] [address] [place], [place] [id number] Supervisor Mapping: Matthew Borja MD GFR, Amer >60 Normal >60 [facility] Comment on above: Performed By: #### B MP, CDP #### [facility] [address] [place], [place] 9033883 Supervisor Mapping: Matthew Borja MD GFR,non Amer >60 Normal >60 [facility] Comment on above: Performed By: #### B MP, CDP #### [facility] [address] [place], [place] 8347283 Supervisor Mapping: Matthew Borja MD Glucose [Mass/Vol] 100 mg/dL High 70-99 [facility] Comment on above: Performed By: #### B MP, CDP #### [facility] [address] [place], [place] 1692783 Supervisor Mapping: Matthew Borja MD Potassium [Moles/Vol] 4.3 mmol/L Normal 3.7-5.3 [facility] Comment on above: Performed By: #### B MP, CDP #### [facility] [address] [place], [place] 6041383 Supervisor Mapping: Matthew Borja MD Sodium [Moles/Vol] 138 mmol/L Normal 135-144 [facility] Comment on above: Performed By: #### B MP, CDP #### [facility] [address] [place] [id number] Supervisor Mapping: Matthew Borja MD Staging: Normal [facility] Comment on above: Result Comment: Stag e 1: Some kidney damage normal GFR Stage 2: Mild kidney damage GFR 60-89 Stage 3: Moderate kidney damage GFR 30-59 Stage 4: Severe kidney damage GFR 15-29 Stage 5: Severe kidney damage GFR <15 ESRD - chronic treatment by dialysis or transplant Performed By: #### B NOEMY, CDP #### [facility] [address] [place], [place] [id number] Supervisor Mapping: Matthew Borja MD Urea nitrogen [Mass/Vol] 18 mg/dL Normal 6-20 [facility] Comment on above: Performed By: #### B NOEMY, CDP #### [facility] [address] [place] [address] Supervisor Mapping: Matthew Borja MD CBC Auto Differentialon 06-27 Basophils (Bld) [#/Vol] 0.03 10*3/uL [place] Basophils/100 WBC (Bld) 0 % 0 - 2 % [place] Differential Type NOT REPORTED [place] Eosinophils (Bld) [#/Vol] 0.46 10*3/uL [place] Eosinophils/100 WBC (Bld) 4 % 1 - 4 % [place] Erythrocyte distribution width (RBC) [Ratio] 13.2 % 11.8 - 14.4 % [place] Hematocrit (Bld) [Volume fraction] 42.9 % 36.3 - 47.1 % [place] Hemoglobin (Bld) [Mass/Vol] 14.2 g/dL 11.9 - 15.1 g/dL [place] Immature granulocytes (Bld) [#/Vol] 1 % High 0 [place] Immature granulocytes (Bld) [#/Vol] 0.07 10*3/uL [place] Interpretation and review of laboratory results Abnormal [place] Lymphocytes (Bld) [#/Vol] 3.77 10*3/uL [facility] [place] Lymphocytes/100 WBC (Bld) 36 % 24 - 43 % [place] MCH (RBC) [Entitic mass] 31.5 pg 25.2 - 33.5 pg [place] MCHC (RBC) [Mass/Vol] 33.1 g/dL 28.4 - 34.8 g/dL [place] MCV (RBC) [Entitic vol] 95.1 fL 82.6 - 102.9 fL [place] Monocytes (Bld) [#/Vol] 0.76 10*3/uL [place] Monocytes/100 WBC (Bld) 7 % 3 - 12 % [place] Platelet mean volume (Bld) [Entitic vol] 10.3 fL 8.1 - 13.5 fL [place] Platelets (Bld) [#/Vol] NOT REPORTED [place] Platelets (Bld) [#/Vol] 272 10*3/uL [place] RBC (Bld) [#/Vol] 4.51 10*6/uL 3.95 - 5.11 m/uL [place] RBC morphology finding Nom (Bld) NOT REPORTED [place] Segmented neutrophils/100 WBC (Bld) 52 % 36 - 65 % [place] Segs Absolute 5.36 [place] WBC (Bld) [#/Vol] 10.5 10*3/uL [place] WBC (Bld) [#/Vol] 0.0 10*3/uL 0.0 per 100 WBC M [place] WBC Morphology NOT REPORTED [place], [place] CBC with Diffon 07-09-2020 Abs. Basophil 0.03 k/uL Normal 0.00-0.20 [facility] Comment on above: Performed By: #### B MP, CDP #### [facility] [address] [place] [address] Supervisor Mapping: Matthew Borja MD Abs.Imm.Granulocyte 0.07 k/uL Normal 0.00-0.30 [facility] Comment on above: Performed By: #### B NOEMY, CDP #### [facility] [address] [place], [place] [address] Supervisor Mapping: Matthew Borja MD Abs.Neutrophil (Seg) 5.36 k/uL Normal 1.50-8.10 [facility] Comment on above: Performed By: #### B MP, CDP #### [facility] [address] [place], [place] [address] Supervisor Mapping: Matthew Borja MD Basophils/100 WBC (Bld) 0 % Normal 0-2 [facility] Comment on above: Performed By: #### B NOEMY, CDP #### [address] [place], [facility]83 Supervisor Mapping: Matthew Borja MD Eosinophils (Bld) [#/Vol] 0.46 10*3/uL High 0.00-0.44 [facility] Comment on above: Performed By: #### B NOEMY, CDP #### [address] [place], [facility]83 Supervisor Mapping: Matthew Borja MD Eosinophils/100 WBC (Bld) 4 % Normal 1-4 [facility] Comment on above: Performed By: #### B NOEMY, CDP #### [address] [place], [place] [address] Supervisor Mapping: Matthew Borja MD Erythrocyte distribution width (RBC) [Ratio] 13.2 % Normal 11.8-14.4 [facility] Comment on above: Performed By: #### B NOEMY, CDP #### [address] [place], [facility]83 Supervisor Mapping: Matthew Borja MD Hematocrit (Bld) [Volume fraction] 42.9 % Normal 36.3-47.1 [facility] Comment on above: Performed By: #### B NOEMY, CDP #### [facility] [address] [place], [place] [id number] Supervisor Mapping: Matthew Borja MD Hemoglobin (Bld) [Mass/Vol] 14.2 g/dL Normal 11.9-15.1 [facility] Comment on above: Performed By: #### B MP, CDP #### [facility] [address] [place], [place] [id number] Supervisor Mapping: Matthew Borja MD Immature granulocytes/100 WBC (Bld) 1 % High 0 [facility] Comment on above: Performed By: #### B MP, CDP #### [facility] [address] [place], [place] [id number] Supervisor Mapping: Matthew Borja MD Lymphocytes (Bld) [#/Vol] 3.77 10*3/uL High 1.10-3.70 [facility] Comment on above: Performed By: #### B NOEMY, CDP #### [address] [place], [place] 1389483 Supervisor Mapping: Matthew Borja MD Lymphocytes/100 WBC (Bld) 36 % Normal 24-43 [facility] Comment on above: Performed By: #### B MP, CDP #### [address] [place], [place] [id number] Supervisor Mapping: Matthew Borja MD MCH (RBC) [Entitic mass] 31.5 pg Normal 25.2-33.5 [facility] Comment on above: Performed By: #### B MP, CDP #### [facility] [address] [place], [place] [id number] Supervisor Mapping: Matthew Borja MD MCHC (RBC) [Mass/Vol] 33.1 g/dL Normal 28.4-34.8 [facility] Comment on above: Performed By: #### B MP, CDP #### [facility] [address] [place] [address] [place], [place] [id number] Supervisor Mapping: Matthew Borja MD MCV (RBC) [Entitic vol] 95.1 fL Normal 82.6-102.9 [facility] Comment on above: Performed By: #### B NOEMY, CDP #### [facility] [address] [place] [address] Supervisor Mapping: Matthew Borja MD Monocytes (Bld) [#/Vol] 0.76 10*3/uL Normal 0.10-1.20 [facility] Comment on above: Performed By: #### B NOEMY, CDP #### [address] [place] [address] Supervisor Mapping: Matthew Borja MD Monocytes/100 WBC (Bld) 7 % Normal 3-12 [facility] Comment on above: Performed By: #### B NOEMY, CDP #### [address] [place], [place] [id number] Supervisor Mapping: Matthew Borja MD Neutrophil (Seg) 52 % Normal 36-65 [facility] Comment on above: Performed By: #### B NOEMY, CDP #### [address] [place] [address] Supervisor Mapping: Matthew Borja MD NRBC Automated 0.0 per 100 WBC Normal 0.0 [facility] Comment on above: Performed By: #### B NOEMY, CDP #### [facility] [address] [place] [address] [place], [place] [id number] Supervisor Mapping: Matthew Borja MD Platelet mean volume (Bld) [Entitic vol] 10.3 fL Normal 8.1-13.5 [facility] Comment on above: Performed By: #### B NOEMY, CDP #### [address] [place] [address] Supervisor Mapping: Matthew Borja MD Platelets (Bld) [#/Vol] 272 10*3/uL Normal 138-453 [facility] Comment on above: Performed By: #### B MP, CDP #### [facility] [address] [place], [place] [id number] Supervisor Mapping: Matthew Borja MD RBC (Bld) [#/Vol] 4.51 10*6/uL Normal 3.95-5.11 [facility] Comment on above: Performed By: #### B MP, CDP #### [facility] [address] [place], [place] 3840883 Supervisor Mapping: Matthew Borja MD WBC (Bld) [#/Vol] 10.5 10*3/uL Normal 3.5-11.3 [facility] Comment on above: Performed By: #### B MP, CDP #### [facility] [address] [place] [address] [place] [address] Supervisor Mapping: Matthew Borja MD Auto Diff Performed NOT REPORTED Normal [facility] Comment on above: Performed By: #### B MP, CDP #### [facility] [address] [place] [address] [place] [address] Supervisor Mapping: Matthew Borja MD Platelet Estimate NOT REPORTED Normal [facility] Comment on above: Performed By: #### B MP, CDP #### [facility] [address] [place] [address] [place] [address] Supervisor Mapping: Matthew Borja MD RBC morphology finding Nom (Bld) NOT REPORTED Normal [facility] Comment on above: Performed By: #### B MP, CDP #### [facility] [address] [place], [place] 2118383 Supervisor Mapping: Matthew Borja MD WBC Morphology NOT REPORTED Normal [facility] Comment on above: Performed By: #### B MP, CDP #### [facility] [address] [place] [address] [place], [place] [id number] Supervisor Mapping: Matthew Borja MD Metabolic Panelon 07-09-2020 GFR/1.73 sq M predicted among non-blacks MDRD (S/P/Bld) [Vol rate/Area] [place] Comment on above: Stage 1: Some [...] body mass. Additional eGFR calculator available at: http://www.[employer]/Chirply_crcl_2011.htm MRI SHOULDER LEFT WO KRYSTAL Wheatley 08-24-2019 1. There is mild to moderate [...] possible small tear of the anterosuperior labrum. [place] EXAM: MRI SHOULDER LEFT WITHOUT CONTRAST [...] evident. There is no acute bony abnormality. [facility] [place] [place] Luis, Mhpn Incoming Radiant Results From [facility] - 08/24/2019 11:51 AM EST EXAM: MRI [...] possible small tear of the anterosuperior labrum. [place] BUN & Creatinineon 9 Creatinine [Mass/Vol] 0.99 mg/dL High 0.5 - 0.9 mg/dL [place] GFR >60 >60 mL/min [place], [place] GFR Non- 59 mL/min Low >60 [place] Interpretation and review of laboratory results Abnormal [place] Urea nitrogen [Mass/Vol] 19 mg/dL 6 - 20 mg/dL [place] Metabolic Panelon 03-14-2019 GFR/1.73 sq M predicted among non-blacks MDRD (S/P/Bld) [Vol rate/Area] [place] Comment on above: Average GFR for 50-5 9 years old: 93 mL/min/1.73sq m Chronic Kidney Disease: <60 mL/min/1.73sq m Kidney failure: <15 mL/min/1.73sq m eGFR calculated using average adult body mass. Additional eGFR calculator available at: http://www.[employer].Nogacom/multiple_crcl_2011.htm Stage 1: Some kidney damage normal GFR Stage 2: Mild kidney damage GFR 60-89 Stage 3: Moderate kidney damage GFR 30-59 Stage 4: Severe kidney damage GFR 15-29 Stage 5: Severe kidney damage GFR <15 ESRD - chronic treatment by dialysis or transplant Vital Signs Date Time Vital Sign Value Performing Clinician [facility] 06-21-2023 08:59-0500 Blood Pressure Location MELANY PATO [facility] 06-21-2023 08:59-0500 Body temperature 97.52 [degF] MELANY PATO [facility] 06-21-2023 08:59-0500 Diastolic blood pressure 88 mm[Hg] MELANY PATO [facility] 06-21-2023 08:59-0500 Heart rate 70 /min MELANY PATO [facility] 06-21-2023 08:59-0500 Respiratory rate 18 /min MELANY PATO [facility] 06-21-2023 08:59-0500 SaO2% (BldA) [Mass fraction] 98 % MELANY PATO [facility] 06-21-2023 08:59-0500 Systolic blood pressure 138 mm[Hg] MELANY PATO [facility] 05-30-2023 08:23-0500 Blood Pressure Location MELANY PATO [facility] 05-30-2023 08:23-0500 Diastolic blood pressure 80 mm[Hg] MELANY PATO [facility] 05-30-2023 08:23-0500 Heart rate 86 /min MELANY PATO [facility] 05-30-2023 08:23-0500 SaO2% (BldA) [Mass fraction] 93 % MELANY PATO [facility] 05-30-2023 08:23-0500 Systolic blood pressure 110 mm[Hg] MELANY PATO [facility] 05-02-2023 10:31-0500 Blood Pressure Location MELANY PATO [facility] 05-02-2023 10:31-0500 Body temperature 98.6 [degF] MELANY PATO [facility] 05-02-2023 10:31-0500 Diastolic blood pressure 80 mm[Hg] MELANY PATO [facility] 05-02-2023 10:31-0500 Heart rate 72 /min MELANY PATO [facility] 05-02-2023 10:31-0500 Respiratory rate 16 /min MELANY PATO [facility] 05-02-2023 10:31-0500 SaO2% (BldA) [Mass fraction] 93 % MELANY PATO [facility] 05-02-2023 10:31-0500 Systolic blood pressure 112 mm[Hg] MELANY PATO [facility] 05-02-2023 09:36-0500 Blood Pressure Location MELANY PATO [facility] 05-02-2023 09:36-0500 Diastolic blood pressure 80 mm[Hg] MELANY PATO [facility] 05-02-2023 09:36-0500 Heart rate 72 /min MELANY PATO [facility] 05-02-2023 09:36-0500 Respiratory rate 16 /min MELANY PATO [facility] 05-02-2023 09:36-0500 SaO2% (BldA) [Mass fraction] 93 % MELANY PATO [facility] 05-02-2023 09:36-0500 Systolic blood pressure 112 mm[Hg] MELANY PATO [facility] 04-18-2023 08:30-0400 Blood Pressure Location MELANY PATO [facility] 04-18-2023 08:30-0400 Diastolic blood pressure 70 mm[Hg] MELANY PATO [facility] 04-18-2023 08:30-0400 Heart rate 72 /min MELANY PATO [facility] 04-18-2023 08:30-0400 SaO2% (BldA) [Mass fraction] 93 % MELANY PATO [facility] 04-18-2023 08:30-0400 Systolic blood pressure 130 mm[Hg] MELANY PATO [facility] 03-14-2023 13:53-0400 Blood Pressure Location MELANY PATO [facility] 03-14-2023 13:53-0400 Diastolic blood pressure 66 mm[Hg] MELANY PATO [facility] 03-14-2023 13:53-0400 Heart rate 78 /min MELANY PATO [facility] 03-14-2023 13:53-0400 SaO2% (BldA) [Mass fraction] 97 % MELANY SCHUMACHER [facility] 03-14-2023 13:53-0400 Systolic blood pressure 130 mm[Hg] MELANY ANDRESANN [facility] 08-25-2022 16:22-0500 Diastolic blood pressure 77 mm[Hg] SPANISH LECTURER-C Sia Torresonk Work Phone: [facility] 08-25-2022 16:22-0500 Heart rate 68 /min SPANISH LECTURER-C Sia Klonk Work Phone: [facility] 08-25-2022 16:22-0500 Respiratory rate 16 /min SPANISH LECTURER-C Sia Brianonk Work Phone: [facility] 08-25-2022 16:22-0500 SaO2% (BldA) [Mass fraction] 95 % SPANISH LECTURER-C Sia Klonk Work Phone: [facility] 08-25-2022 16:22-0500 Systolic blood pressure 117 mm[Hg] SPANISH LECTURER-C Sia Torresonk Work Phone: [facility] 08-25-2022 14:43-0500 Body temperature 97.1 [degF] SPANISH LECTURER-C Sia Torresonk Work Phone: [facility] 08-25-2022 14:43-0500 Inhaled oxygen flow rate 6 L/min SPANISH LECTURER-C Sia Brianonk Work Phone: [facility] 08-25-2022 13:01-0500 Body mass index (BMI) [Ratio] 37 kg/m2 SPANISH LECTURER-C Sia Brianonk Work Phone: [facility] 08-25-2022 12:51-0500 Body height 160.02 cm SPANISH LECTURER-C Sia Brianonk Work Phone: [facility] 08-25-2022 12:51-0500 Body weight 94.8 kg SPANISH LECTURER-C Sia Klonk Work Phone: [facility] 08-23-2022 13:15-0500 Body height 160.02 cm Ariel Olexa Other [employer] Other 08-23-2022 13:15-0500 Body mass index (BMI) [Ratio] 37.96 kg/m2 Ariel Olexa Other [employer] Other 08-23-2022 13:15-0500 Body weight 97.21 kg Ariel Olexa Other [employer] Other 08-12-2022 08:33-0500 Blood Pressure Location Sia Floresk [facility] 08-12-2022 08:33-0500 Body temperature 97.52 [degF] Sia Floresk [facility] 08-12-2022 08:33-0500 Diastolic blood pressure 84 mm[Hg] Sia Klonk [facility] 08-12-2022 08:33-0500 Heart rate 79 /min Sia Floresk [facility] 08-12-2022 08:33-0500 SaO2% (BldA) [Mass fraction] 96 % Sia Torresonk [facility] 08-12-2022 08:33-0500 Systolic blood pressure 124 mm[Hg] Sia Klonk [facility] 07-12-2022 11:15-0500 Body height 160.02 cm Ariel Olexa Other [employer] Other 07-12-2022 11:15-0500 Body mass index (BMI) [Ratio] 38.44 kg/m2 Ariel Olexa Other [employer] Other 07-12-2022 11:15-0500 Body weight 98.43 kg Ariel Olexa Other [employer] Other 07-05-2022 12:00-0500 Body height 160.02 cm Hannah Missler Other [employer] Other 07-05-2022 12:00-0500 Body mass index (BMI) [Ratio] 38.49 kg/m2 Hannah Missler Other [employer] Other 07-05-2022 12:00-0500 Body weight 98.57 kg Hannah Missler Other [employer] Other 07-05-2022 12:00-0500 Diastolic blood pressure 89 mm[Hg] Hannah Missler Other [employer] Other 07-05-2022 12:00-0500 Respiratory rate 18 /min Hannah Missler Other [employer] Other 07-05-2022 12:00-0500 SaO2% (BldA) [Mass fraction] 96 % Hannah Missler Other [employer] Other 07-05-2022 12:00-0500 Systolic blood pressure 133 mm[Hg] Hannah Missler Other [employer] Other 05-27-2022 10:15-0500 Body height 160.02 cm Ariel Olexa Other [employer] Other 05-27-2022 10:15-0500 Body mass index (BMI) [Ratio] 38.08 kg/m2 Ariel Olexa Other [employer] Other 05-27-2022 10:15-0500 Body weight 97.52 kg Ariel Olexa Other [employer] Other 04-20-2022 09:41-0400 Diastolic blood pressure 82 mm[Hg] Sia Klonk [facility] 04-20-2022 09:41-0400 Mean blood pressure 101 mm[Hg] Sia Klonk [facility] 04-20-2022 09:41-0400 Systolic blood pressure 138 mm[Hg] Sia Klonk [facility] 04-20-2022 09:18-0400 Blood Pressure Location Sia Klonk [facility] 04-20-2022 09:18-0400 Body temperature 98.78 [degF] Sia Klonk [facility] 04-20-2022 09:18-0400 Diastolic blood pressure 90 mm[Hg] Sia Klonk [facility] 04-20-2022 09:18-0400 Heart rate 72 /min Sia Klonk [facility] 04-20-2022 09:18-0400 SaO2% (BldA) [Mass fraction] 94 % Sia Klonk [facility] 04-20-2022 09:18-0400 Systolic blood pressure 144 mm[Hg] Sia Klonk [facility] 04-12-2022 11:15-0400 Body height 160.02 cm Ariel Olexa Other [employer] Other 04-12-2022 11:15-0400 Body mass index (BMI) [Ratio] 38.08 kg/m2 Ariel Sortoxa Other [employer] Other 04-12-2022 11:15-0400 Body weight 97.52 kg Ariel Sortoxa Other [employer] Other 03-31-2022 13:00-0400 Diastolic blood pressure 81 mm[Hg] PHYSICIAN NO [facility] 03-31-2022 13:00-0400 Heart rate 85 /min PHYSICIAN NO [facility] 03-31-2022 13:00-0400 Respiratory rate 14 /min PHYSICIAN NO [facility] 03-31-2022 13:00-0400 SaO2% (BldA) [Mass fraction] 91 % PHYSICIAN NO [facility] 03-31-2022 13:00-0400 Systolic blood pressure 133 mm[Hg] PHYSICIAN NO [facility] 03-31-2022 12:15-0400 Inhaled oxygen flow rate 2 L/min PHYSICIAN NO [facility] 03-31-2022 11:34-0400 Body temperature 98.4 [degF] PHYSICIAN NO [facility] 03-31-2022 08:41-0400 Body height 163.83 cm PHYSICIAN NO [facility] 03-31-2022 08:41-0400 Body mass index (BMI) [Ratio] 36.3 kg/m2 PHYSICIAN NO [facility] 03-31-2022 08:41-0400 Body weight 97.6 kg PHYSICIAN NO [facility] 03-09-2022 11:45-0400 Body height 160.02 cm Ariel Mckeon Other [employer] Other 03-09-2022 11:45-0400 Body mass index (BMI) [Ratio] 38.08 kg/m2 Ariel Sortoxa Other [employer] Other 03-09-2022 11:45-0400 Body weight 97.52 kg Ariel Olexa Other [employer] Other 12-09-2021 13:43-0400 Blood Pressure Location Sia Klonk [facility] 12-09-2021 13:43-0400 Body temperature 96.8 [degF] Sia Klonk [facility] 12-09-2021 13:43-0400 Diastolic blood pressure 76 mm[Hg] Sia Klonk [facility] 12-09-2021 13:43-0400 Heart rate 96 /min Sia Klonk [facility] 12-09-2021 13:43-0400 SaO2% (BldA) [Mass fraction] 97 % Sia Klonk [facility] 12-09-2021 13:43-0400 Systolic blood pressure 132 mm[Hg] Sia Klonk [facility] 10-12-2021 11:02-0400 Blood Pressure Location Sia Klonk [facility] 10-12-2021 11:02-0400 Body temperature 96.8 [degF] Sia Klonk [facility] 10-12-2021 11:02-0400 Diastolic blood pressure 72 mm[Hg] Sia Klonk [facility] 10-12-2021 11:02-0400 Heart rate 90 /min Sia Thompson [facility] 10-12-2021 11:02-0400 SaO2% (BldA) [Mass fraction] 97 % Sia Thompson [facility] 10-12-2021 11:02-0400 Systolic blood pressure 124 mm[Hg] Sia Thompson [facility] 02-18-2021 15:30-0400 Diastolic blood pressure 60 mm[Hg] Cleopatra Payan MD Work Phone: [employer] Work Phone: 02-18-2021 15:30-0400 Heart rate 61 /min Cleopatra Payan MD Work Phone: [facility] Work Phone: 02-18-2021 15:30-0400 Respiratory rate 18 /min Cleopatra Payan MD Work Phone: [facility] Work Phone: 02-18-2021 15:30-0400 SaO2% (BldA) [Mass fraction] 96 % Cleopatra Payan MD Work Phone: [facility] Work Phone: 02-18-2021 15:30-0400 Systolic blood pressure 95 mm[Hg] Cleopatra Payan MD Work Phone: [facility] Work Phone: 02-18-2021 15:05-0400 Body temperature 97.3 [degF] Cleopatra Payan MD Work Phone: [facility] Work Phone: 02-18-2021 12:22-0400 Body height 162.6 cm Cleopatra Payan MD Work Phone: [facility] Work Phone: 02-18-2021 12:22-0400 Body mass index (BMI) [Ratio] 37.66 kg/m2 Cleopatra Payan MD Work Phone: [facility] Work Phone: 02-18-2021 12:22-0400 Body weight 99.52 kg Cleopatra Payan MD Work Phone: [facility] Work Phone: 02-13-2021 11:30-0400 Body height 160 cm Cleopatra Payan MD Work Phone: [facility] Work Phone: 02-13-2021 11:30-0400 Body mass index (BMI) [Ratio] 38.97 kg/m2 Cleopatra Payan MD Work Phone: [facility] Work Phone: 02-13-2021 11:30-0400 Body temperature 98.1 [degF] Cleopatra Payan MD Work Phone: [facility] Work Phone: 02-13-2021 11:30-0400 Body weight 99.79 kg Cleopatra Payan MD Work Phone: [facility] Work Phone: 02-13-2021 11:30-0400 Diastolic blood pressure 63 mm[Hg] Cleopatra Payan MD Work Phone: [facility] Work Phone: 02-13-2021 11:30-0400 Heart rate 70 /min Cleopatra Payan MD Work Phone: [facility] Work Phone: 02-13-2021 11:30-0400 Respiratory rate 18 /min Cleopatra Payan MD Work Phone: [facility] Work Phone: 02-13-2021 11:30-0400 SaO2% (BldA) [Mass fraction] 94 % Cleopatra Payan MD Work Phone: [facility] Work Phone: 02-13-2021 11:30-0400 Systolic blood pressure 105 mm[Hg] Cleopatra Payan MD Work Phone: [facility] Work Phone: 12-12-2020 15:30-0400 Diastolic blood pressure 72 mm[Hg] Cleopatra Payan MD Work Phone: [facility] Work Phone: 12-12-2020 15:30-0400 Heart rate 76 /min Cleopatra Payan MD Work Phone: [facility] Work Phone: 12-12-2020 15:30-0400 Respiratory rate 18 /min Cleopatra Payan MD Work Phone: [facility] Work Phone: 12-12-2020 15:30-0400 SaO2% (BldA) [Mass fraction] 94 % Cleopatra Payan MD Work Phone: [facility] Work Phone: 12-12-2020 15:30-0400 Systolic blood pressure 147 mm[Hg] Cleopatra Payan MD Work Phone: [facility] Work Phone: 12-12-2020 15:05-0400 Body temperature 97.81 [degF] Cleopatra Payan MD Work Phone: [facility] Work Phone: 12-12-2020 13:00-0400 Body height 160 cm Cleopatra Payan MD Work Phone: [facility] Work Phone: 12-12-2020 13:00-0400 Body mass index (BMI) [Ratio] 40.21 kg/m2 Cleopatra Payan MD Work Phone: [facility] Work Phone: 12-12-2020 13:00-0400 Body weight 102.97 kg Cleopatra Payan MD Work Phone: [facility] Work Phone: Encounters Encounter Date Encounter Type Care Provider Facility Start: 10-09-2025 ambulatory MELANY A PATO [facility] Start: 04-09-2025 ambulatory MELANY A PATO Facili ty:[facility] Start: 12-19-2024 ambulatory MELANY A PATO Facili [facility]: [facility] Start: 11-21-2024 End: 11-21-2024 ambulatory MELANY A PATO Facility:[facility] [place] Start: 11-13-2024 End: 11-13-2024 ambulatory Kvng FALK Facility: [place] Start: 11-13-2024 End: 11-13-2024 Patient encounter procedure Kvng FALK [facility] Start: 10-30-2024 End: 10-30-2024 ambulatory Kvng FALK Facility: [facility] Start: 10-24-2024 End: 10-24-2024 ambulatory MELANY A PATO Facility:[facility] [place] Start: 10-23-2024 End: 10-23-2024 ambulatory [facility] Start: 10-23-2024 Encounter for gynecological examination (general) (routine) without abnormal findings [facility] Start: 10-23-2024 End: 10-23-2024 Patient encounter procedure Sia Thompson PROCESS EXPERT - SPANISH LECTURER Work Phone: [facility] Start: 10-23-2024 End: 10-23-2024 Subsequent hospital visit by physician Sia Fry NP Work Phone: [facility] Comment on above: Encounter for well w betty exam with routine gynecological exam Start: 10-17-2024 End: 10-17-2024 ambulatory MELANY A PATO Facility:[facility] Start: 10-17-2024 End: 10-17-2024 Patient encounter procedure MELANY A PATO [facility] Start: 10-16-2024 End: 10-16-2024 Lab Drop off MELANY A PATO [facility] Start: 10-16-2024 End: 10-16-2024 ambulatory MELANY A PATO Facility:[facility] [place] Start: 10-11-2024 ambulatory MELANY PATO Facility :[facility] Start: 10-09-2024 End: 10-09-2024 ambulatory MELANY A PATO Facility:[facility] Start: 09-26-2024 End: 09-26-2024 ambulatory MELANY A PATO [facility] Start: 08-29-2024 End: 08-29-2024 ambulatory MELANY A PATO Facility:[facility] [place] Start: 07-10-2024 End: 07-10-2024 ambulatory MELANY A PATO Facility:[facility] [place] Start: 06-14-2024 End: 06-14-2024 ambulatory MELANY A PATO Facility:[facility] [place] Start: 05-04-2024 ambulatory MELANY A PATO Facili ty: [place] Start: 02-01-2024 End: 02-01-2024 ambulatory MELANY A PATO Facility:[facility] [place] Start: 01-04-2024 End: 01-04-2024 ambulatory MELANY A PATO Facility:[facility] [place] Start: 12-13-2023 End: 12-13-2023 ambulatory MELANY A PATO Facility:[facility] Start: 12-13-2023 End: 12-13-2023 Patient encounter procedure MELANY A PATO [facility] Start: 12-07-2023 End: 12-07-2023 ambulatory MELANY A PATO Facility:[facility] Start: 11-24-2023 End: 11-24-2023 ambulatory KEMI FERNANDEZ Not Available Start: 11-09-2023 End: 11-09-2023 ambulatory MELANY A PATO Facility:[facility] Start: 10-13-2023 End: 10-13-2023 Patient encounter procedure SELF REFERRAL [facility] Start: 06-21-2023 End: 06-21-2023 Patient encounter procedure MELANY A PATO [facility] Start: 05-30-2023 End: 05-30-2023 Patient encounter procedure MELANY A PATO [facility] Start: 05-02-2023 End: 05-02-2023 Patient encounter procedure MELANY A PATO [facility] Start: 05-02-2023 End: 05-02-2023 Patient encounter procedure MELANY A PATO [facility] Start: 05-02-2023 End: 05-02-2023 Well adult monitoring check done MELANY A PATO [facility] Start: 04-18-2023 End: 04-18-2023 Patient encounter procedure MELANY A PATO [facility] Start: 03-14-2023 End: 03-14-2023 Patient encounter procedure MELANY A PATO [facility] Start: 01-24-2023 End: 01-24-2023 ambulatory Ariel Olexa Other [employer] Other Start: 01-24-2023 Office outpatient vi sit 15 minutes Ariel Olexa [facility] Start: 12-22-2022 End: 12-22-2022 ambulatory Ariel Olexa Other [employer] Other Start: 12-22-2022 Telephone encounter Ariel Olexa [facility] Start: 12-21-2022 Office outpatient vi sit 15 minutes Ariel Olexa [facility] Start: 12-21-2022 End: 12-21-2022 ambulatory Ariel Olexa [employer] Other Start: 12-21-2022 End: 12-21-2022 Patient encounter procedure SPANISH LECTURER-C Sia Thompson Work Phone: [facility] Start: 11-24-2022 End: 11-24-2022 ambulatory Ellie Ritchie Other [employer] Other Start: 11-24-2022 Telephone encounter Ellie Ritchie [facility] Start: 10-19-2022 End: 10-19-2022 Patient encounter procedure Sia Thompson [facility] Start: 10-11-2022 End: 12-17-2022 Recurring Sia Thompson [facility] Start: 10-04-2022 End: 10-04-2022 ambulatory Sury Mohr Other [employer] Other Start: 10-04-2022 Postop follow up vis it related to original px Sury Mohr [facility] Start: 09-24-2022 End: 09-24-2022 ambulatory SPANISH LECTURER-C Sia Thompson Work Phone: [facility] Work Phone: Start: 09-24-2022 End: 09-24-2022 Discharged Recurring SPANISH LECTURER-C Sia Thompson Work Phone: [facility] [place] Work Phone: Start: 09-20-2022 End: 09-20-2022 ambulatory Hannah Nelson Other [employer] Other Start: 09-20-2022 Telephone encounter Hannah Nelson [facility] Start: 09-02-2022 End: 09-02-2022 ambulatory Sury Mohr Other [employer] Other Start: 09-02-2022 Postop follow up vis it related to original px Sury Mohr [facility] Start: 08-25-2022 End: 08-25-2022 ambulatory Ariel Mckeon Facility:[facility] Start: 08-25-2022 End: 08-25-2022 Admission to same day surgery center SPANISH LECTURER-C Sia Thompson Work Phone: [facility] [place] Start: 08-25-2022 End: 08-25-2022 ambulatory SPANISH LECTURER-C Sia Thompson Work Phone: [facility] Work Phone: Start: 08-23-2022 End: 08-23-2022 ambulatory Ariel Mckeon Other [employer] Other Start: 08-23-2022 Encounter for other preprocedural examination Ariel Mckeon [facility] Start: 08-23-2022 Office outpatient vi sit 25 minutes Ariel Olexa [facility] Start: 08-23-2022 Telephone encounter Ariel Olexa [facility] Start: 08-12-2022 End: 08-12-2022 Patient encounter procedure Sia Thompson [facility] [place] Start: 08-11-2022 End: 08-11-2022 ambulatory Ariel Olexa Facility:[facility] Start: 08-11-2022 End: 08-11-2022 ambulatory SPANISH LECTURER-C Sia Thompson Work Phone: [facility] Work Phone: Start: 08-11-2022 End: 08-11-2022 Patient encounter procedure SPANISH LECTURER-Bo Thompson Work Phone: [facility] Ffs-Hpe-Mxyoljdg Testing Work Phone: Start: 08-09-2022 End: 08-10-2022 ambulatory Sia Thompson Facility:[facility] Start: 08-09-2022 Registered Recurring SPANISH LECTURER-C [facility] Thompson Work Phone: [facility]-Weight Management Work Phone: Start: 08-02-2022 End: 08-02-2022 ambulatory Hannah Nelson Other [employer] Other Start: 08-02-2022 Telephone encounter Hannahher Mezaleesa [facility] Start: 07-12-2022 End: 07-12-2022 ambulatory Ariel Olexa Other [employer] Other Start: 07-12-2022 Encounter for other preprocedural examination Ariel Macarioxa [facility] Start: 07-12-2022 Office outpatient vi sit 25 minutes Ariel Olexa [facility] Start: 07-08-2022 End: 07-08-2022 Patient encounter procedure HANNAHHER NELSON [facility] Start: 07-06-2022 End: 07-08-2022 ambulatory Ariel Olexa Facility:[facility] Start: 07-06-2022 End: 07-08-2022 ambulatory SPANISH LECTURER-C Sia Thompson Work Phone: [facility] Work Phone: Start: 07-06-2022 End: 07-08-2022 Discharged Recurring SPANISH LECTURER-C Sia Thompson Work Phone: [facility]-Physical Therapy [place] Work Phone: Start: 07-05-2022 Registered Recurring SPANISH LECTURER-C Emma Thompson Work Phone: [facility]-Weight [facility] Work Phone: Start: 07-05-2022 End: 07-05-2022 ambulatory Hannah Nelson Other [employer] Other Start: 07-05-2022 Nutrition therapy Hannah Nelson [facility] Start: 05-27-2022 End: 05-27-2022 ambulatory Ariel Olexa Other [employer] Other Start: 05-27-2022 Office outpatient vi sit 25 minutes Ariel Sortoxa [facility] Start: 05-21-2022 End: 05-21-2022 ambulatory Ariel Olexa Facility:[facility] Start: 05-21-2022 End: 05-21-2022 Patient encounter procedure SPANISH LECTURER-C Sia Thompson Work Phone: [facility]-MRI [facility] [place] Work Phone: Start: 05-10-2022 Telephone encounter Ariel Mckeon [facility] Start: 05-10-2022 End: 05-10-2022 ambulatory Ariel Olexa Facility:[facility] Start: 05-10-2022 End: 05-10-2022 ambulatory SPANISH LECTURER-C Sia Thompson Work Phone: [facility] Work Phone: Start: 05-10-2022 End: 05-10-2022 Patient encounter procedure SPANISH LECTURERTessa Thompson Work Phone: [facility] Start: 04-20-2022 End: 04-20-2022 Patient encounter procedure Sia Thompson [facility] [place] Start: 04-12-2022 Postop follow up vis it related to original px Ariel Olexa [facility] Start: 04-12-2022 End: 04-12-2022 ambulatory Ariel Olexa [employer] Other Start: 04-12-2022 End: 04-12-2022 Patient encounter procedure SPANISH LECTURERTessa Thompson Work Phone: [facility] Start: 04-01-2022 End: 04-01-2022 ambulatory Ariel Olexa Other [employer] Other Start: 04-01-2022 Telephone encounter Ariel Olexa [facility] Start: 04-01-2022 Registered Recurring MARCELINO Thompson Work Phone: [facility] [place] Start: 03-31-2022 End: 03-31-2022 ambulatory Ariel Olexa Facility:[facility] Start: 03-31-2022 End: 03-31-2022 Admission to same day surgery center PHYSICIAN NO [facility] [place] Start: 03-31-2022 End: 03-31-2022 ambulatory PHYSICIAN NO [facility] Work Phone: Start: 03-30-2022 End: 03-30-2022 ambulatory Ariel Olexa Other [employer] Other Start: 03-30-2022 Telephone encounter Ariel Olexa [facility] Start: 03-29-2022 End: 03-29-2022 ambulatory Ariel Mckeon Facility:[facility] Start: 03-29-2022 End: 03-29-2022 ambulatory PHYSICIAN NO [facility] Work Phone: Start: 03-29-2022 End: 03-29-2022 Patient encounter procedure PHYSICIAN NO [facility] Start: 03-22-2022 End: 03-22-2022 ambulatory Ariel Mckeon Facility:[facility] Start: 03-22-2022 End: 03-22-2022 Patient encounter procedure PHYSICIAN NO [facility] Start: 03-09-2022 End: 03-09-2022 ambulatory Ariel Mckeon Other [employer] Other Start: 03-09-2022 Encounter for other preprocedural examination Ariel Mckeon [facility] Start: 03-09-2022 Office outpatient vi sit 25 minutes Ariel Mckeon [facility] Start: 02-24-2022 End: 02-24-2022 ambulatory Ariel Mckeon Facility:[facility] Start: 02-24-2022 End: 02-24-2022 Patient encounter procedure MD Ariel Mckeon Work Phone: [facility]-MRI [address] Start: 02-05-2022 End: 02-05-2022 ambulatory PHYSICIAN NO [facility] Work Phone: Start: 02-05-2022 End: 02-05-2022 Discharged Recurring PHYSICIAN NO [facility] [place] Start: 02-05-2022 Registered Recurring MD Ariel Mckeon Work Phone: [facility] [place] Start: 01-07-2022 End: 01-07-2022 ambulatory Ariel Sortoxa Other [employer] Other Start: 01-07-2022 Office outpatient ne w 45 minutes Ariel Mckeon [facility] Start: 01-07-2022 End: 01-07-2022 Patient encounter procedure MD Ariel Mckeon Work Phone: [facility] C[facility] Start: 12-09-2021 End: 12-09-2021 Patient encounter procedure Sia Thompson [facility] Start: 10-12-2021 End: 10-12-2021 Patient encounter procedure Sia Thompson [facility] Start: 09-29-2021 End: 09-29-2021 Patient encounter procedure Sia Thompson APRN - RONALD Work Phone: [facility] Start: 09-29-2021 End: 09-29-2021 Subsequent hospital visit by physician Sia Fry NP Work Phone: [facility] Comment on above: Postcoital bleeding; Women's annual routine gynecological examination Start: 08-28-2021 End: 08-30-2021 Subsequent hospital visit by physician [facility] Additional Xray At [facility] Radiology Comment on above: Right shoulder pain, unspecified chronicity Start: 05-06-2021 End: 05-08-2021 Subsequent hospital visit by physician [facility] M[facility] MRI Comment on above: Left knee pain, unsp ecified chronicity Start: 04-03-2021 End: 04-03-2021 Subsequent hospital visit by physician [facility] Covid19 Pat Screening Schedule [facility] PRE [facility]MIT Comment on above: Arrived Start: 03-27-2021 End: 03-29-2021 Subsequent hospital visit by physician Sia Fry NP Work Phone: [facility] Start: 02-20-2021 End: 02-22-2021 Subsequent hospital visit by physician [facility] M[facility] MRI Comment on above: Acute pain of right knee Start: 02-18-2021 End: 02-18-2021 [facility] Start: 02-18-2021 End: 02-18-2021 Subsequent hospital visit by physician Cleopatra Payan MD Work Phone: [email or web address] Comment on above: Carpal tunnel syndro me of left wrist (Primary Dx) Start: 02-16-2021 End: 02-16-2021 Subsequent hospital visit by physician Eusebio Solitario Pat Screening Schedule [facility] PRE [facility] Comment on above: Arrived Start: 02-13-2021 End: 02-13-2021 [facility] Start: 02-13-2021 End: 02-13-2021 Subsequent hospital visit by physician Cleopatra Payan MD Work Phone: [facility] Start: 02-09-2021 End: 02-09-2021 Subsequent hospital visit by physician Gloria Kassi Pat Screening Schedule [facility] PRE ADMIT Comment on above: Arrived Start: 02-06-2021 End: 02-08-2021 Subsequent hospital visit by physician Esuebio Additional Xray At [facility] Radiology Comment on above: Acute pain of right knee Start: 02-06-2021 End: 02-08-2021 Subsequent hospital visit by physician Sia Fry NP Work Phone: [facility] Start: 01-21-2021 End: 01-22-2021 [facility] Start: 01-21-2021 End: 01-21-2021 Subsequent hospital visit by physician Sia Fry NP Work Phone: [facility] Start: 12-12-2020 End: 12-12-2020 [facility] Start: 12-12-2020 End: 12-12-2020 Subsequent hospital visit by physician Cleopatra Payan MD Work Phone: [email or web address] Comment on above: Post-operative pain (Primary Dx) Start: 12-09-2020 End: 12-09-2020 Subsequent hospital visit by physician Gloria Kassi Pat Screening Schedule [facility] PRE ADMIT Comment on above: Arrived Start: 12-05-2020 End: 12-06-2020 ambulatory SIA [facility] Start: 12-05-2020 End: 12-05-2020 Subsequent hospital visit by physician Sia Fry NP Work Phone: [facility] Laboratory Start: 07-18-2020 End: 07-18-2020 Subsequent hospital visit by physician Eusebio Covid19 Pat Screening Schedule [facility] Comment on above: Arrived Start: 07-14-2020 End: 07-15-2020 ambulatory ROSALIO [facility] Start: 07-14-2020 End: 07-14-2020 Subsequent hospital visit by physician Talha Sanchez [facility] EKG Start: 07-09-2020 End: 07-10-2020 ambulatory ROSALIO [facility] Start: 07-09-2020 End: 07-09-2020 Subsequent hospital visit by physician Talha Sanchez [facility] Laboratory Start: 01-29-2020 End: 01-29-2020 Subsequent hospital visit by physician Wally Lala [facility] Laboratory Comment on above: Endometrial thickeni ng on ultrasound Start: 01-01-2020 End: 01-01-2020 Subsequent hospital visit by physician Wally Lala [facility] Laboratory Comment on above: Women's annual routi ne gynecological examination Start: 08-24-2019 End: 08-26-2019 Subsequent hospital visit by physician [facility] M[facility] MRI Comment on above: Labral tear of long head of biceps tendon, left, initial encounter Start: 03-14-2019 End: 03-14-2019 Subsequent hospital visit by physician Wally Lala [facility] Laboratory Procedures Date Procedure Procedure Detail Performing Clinician Start: 12-21-2022 X-ray of left knee SPANISH LECTURER-C Sia Thompson Work Phone: Start: 08-25-2022 Arthroscopy of knee SPANISH LECTURER-C Sia Floresk Work Phone: Start: 05-21-2022 MRI of left knee SPANISH LECTURER-C Sia Thompson Work Phone: Start: 05-10-2022 X-ray of both knees SPANISH LECTURER-C Sia Klonk Work Phone: Start: 04-12-2022 Plain X-ray of right shoulder SPANISH LECTURER-C Sia Thompson Work Phone: Start: 03-31-2022 Procedure on shoulder joint PHYSICIAN NO FAMILY Start: 02-24-2022 MRI of right shoulder MD Ariel Mckeon Work Phone: Start: 01-07-2022 Plain X-ray of right shoulder MD Ariel Mckeon Work Phone: Start: 09-29-2021 Microscopic observation [Identifier] in Cervix by Cyto stain Sia Thompson PROCESS EXPERT - SPANISH LECTURER Work Phone: Start: 08-28-2021 Radex shoulder complete minimum 2 views Cleopatra Payan MD Work Phone: Start: 05-06-2021 Mri any jt lower extrem w/o contrast matrl Josephine Márquez PROCESS EXPERT - [employer] Work Phone: Start: 04-03-2021 COVID-19, RAPID Ronak Aguila MD Work Phone: Start: 02-20-2021 Mri any jt lower extrem w/o contrast ruthyl Cleopatra Payan MD Work Phone: Start: 02-06-2021 Radiologic exam knee complete 4/more views Cleopatra Payan MD Work Phone: Start: 01-21-2021 Basic metabolic panel calcium total Cleopatra Payan MD Work Phone: Start: 12-09-2020 COVIDMajo Aguila MD Work Phone: Start: 12-05-2020 Basic metabolic panel calcium total Josephine Márquez PROCESS EXPERT - [employer] Work Phone: Start: 07-18-2020 PAWAN Aguila Work Phone: Start: 07-14-2020 Ecg routine ecg w/least 12 lds w/i&r Rosalio Comer Work Phone: Start: 07-14-2020 EKG REPORT Hpf Scanning Start: 07-09-2020 Basic metabolic panel calcium total Rosalio Comer Work Phone: Start: 07-09-2020 Blood count complete auto&auto difrntl wbc Rosalio Comer Work Phone: Start: 01-01-2020 Microscopic observation [Identifier] in Cervix by Cyto stain Sia Thompson PROCESS EXPERT - SPANISH LECTURER Work Phone: Start: 08-24-2019 Mri any jt upper extremity w/o contrast matrl Rosalio Comer Work Phone: Start: 03-14-2019 Assay of urea nitrogen quantitative Cleopatra Payan Work Phone: Start: 11-24-2018 Rupture of tendon of biceps (disorder) Sia Thompson Appendectomy Sia Thompson Bilateral tubal ligation Aiden Thompson 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 MELANY SCHUMACHER Hand tendon release MELANY NOBLES History of repair of musculotendinous cuff of shoulder History of rotator cuff surgery Sia Donna Rotator cuff includi ng muscles and tendons (body structure) Sia Thompson Rotator cuff includi ng muscles and tendons (body structure) Sia Brianspike Tonsillectomy Sia Torresspike Plan of Treatment Date Care Activity Detail Author Start: 10-25-2025 End: 10-25-2025 Patient encounter procedure 10/25/2025 9:00 AM EDT Office Visit [facility] [address] [place] [address] Yong Vizcaino APRN - CNM [address] [place] [address] yearly [facility] Comment on above: yearly Start: 01-25-2025 Influenza vaccination Flu vacc ine (Season Ended) [facility] Start: 12-09-2024 Lipid panel [facility] Start: 10-12-2024 Screening for malign ant neoplasm of breast Breast cancer screen [facility] Start: 09-29-2024 Screening for malign ant neoplasm of cervix [facility] Start: 02-26-2024 COVID-19 Vaccine ( season) COVID-19 Vaccine ( season) [facility] Start: 12-31-2022 Screening for malign ant neoplasm of cervix [facility] Start: 08-25-2022 [facility] Start: 08-25-2022 [facility] Start: 07-24-2022 Creatinine measurement Creatinine mo [facility] [employer] Start: 07-24-2022 Potassium monitoring Potassium monit [facility] Start: 03-31-2022 [facility] Start: 03-31-2022 [facility] Start: 02-25-2022 Influenza vaccination Flu vacc ine (Season Ended) [facility] [employer] Start: 01-22-2022 Screening for malign ant neoplasm of breast Breast cancer screen [facility] [employer] Start: 01-21-2022 Creatinine measurement Creatinine mo [facility] Start: 01-21-2022 Potassium monitoring Potassium monit [facility] [employer] Start: 12-05-2021 Creatinine measurement Creatinine mo [facility] [employer] Work Phone: Start: 12-05-2021 Potassium monitoring Potassium monit [facility] [employer] Work Phone: Start: 10-11-2021 Cervical cancer screen Cervical canc er screen [place] Start: 10-11-2021 Screening for malign ant neoplasm of cervix Cervical cancer screen [place], [place] Start: 08-25-2021 Lipid screen Lipid screen [place], [place] Start: 07-09-2021 Creatinine measurement Creatinine mo [place], [place] Start: 07-09-2021 Potassium monitoring Potassium monit [place], [place] Start: 04-03-2021 End: 04-03-2021 Admission to same day surgery center 04/03/2021 Surgery IP Unit Cleopatra Payan MD [address] [place] [address] [phone] RIGHTKNEE ARTHROSCOPY PARTIAL MEDIAL MENSCECTOMY WITH CHONDRAL DEBRIDEMENT [facility] OR Comment on above: RIGHTKNEE ARTHROSCOP Y PARTIAL MEDIAL MENSCECTOMY WITH CHONDRAL DEBRIDEMENT Start: 04-03-2021 End: 04-03-2021 Anesthesia consultation 04/03/2021 Anesthesia Event IP Unit Michael Combs, PROCESS EXPERT - COUNTERINTELLIGENCE SPECIALIST [address] [facility] [address] [place] [address] [phone] [facility] Start: 04-03-2021 Subsequent hospital visit by physician 04/03/2021 Hospital Encounter IP Unit Cleopatra Payan MD [address] [place] [address] [phone] [facility] Start: 04-03-2021 End: 04-03-2021 Patient encounter procedure 04/03/2021 Appointment Pre-Admission Testing [facility] PRE [facility] Start: 02-25-2021 Influenza vaccination [facility] Start: 02-24-2021 End: 02-24-2021 Patient encounter procedure 02/24/2021 Office Visit Obstetrics and Gynecology Magaly Mack MD [address] [place] [address] [id number] [facility]OLOG[facility] Start: 02-20-2021 End: 02-20-2021 Patient encounter procedure 02/20/2021 Appointment Radiology [facility] Start: 02-18-2021 End: 02-18-2021 Admission to same day surgery center 02/18/2021 Surgery IP Unit Cleopatra Payan MD [address] [place] [address] [phone] CARPAL TUNNEL RELEASE ENDOSCOPIC [facility] Comment on above: CARPAL TUNNEL RELEAS E ENDOSCOPIC Start: 02-18-2021 Subsequent hospital visit by physician 02/18/2021 Hospital Encounter IP Unit Cleopatra Payan MD [address] [place] [address] [phone] [facility] Start: 02-13-2021 End: 02-13-2021 Admission to same day surgery center 02/13/2021 Surgery IP Unit Cleopatra Payan MD [address] [place] [address] [phone] CARPAL TUNNEL RELEASE ENDOSCOPIC [facility] Comment on above: CARPAL TUNNEL RELEAS E ENDOSCOPIC Start: 02-13-2021 Subsequent hospital visit by physician 02/13/2021 Hospital Encounter IP Unit Cleopatra Payan MD [address] [place] [address] [phone] [facility] Start: 02-12-2021 End: 02-12-2021 Patient encounter procedure 02/12/2021 Office Visit Obstetrics and Gynecology Magaly Mack MD [address] [place], [place] [id number] [facility] Start: 02-09-2021 End: 02-09-2021 Patient encounter procedure 02/09/2021 Appointment Pre-Admission Testing [facility] PRE [facility]MIT Start: 01-22-2021 Breast cancer screen Breast cancer s [place], [place] Start: 01-22-2021 Screening for malign ant neoplasm of breast Breast cancer screen [place], [place] Start: 01-16-2021 Diabetes screen Diabetes screen [facility] Start: 01-05-2021 End: 01-05-2021 Patient encounter procedure 01/05/2021 Office Visit Obstetrics and Gynecology Magaly Mack MD [address] [place] [address] [facility] Start: 12-31-2020 Depression Screen Depression Screen [facility] Start: 12-12-2020 End: 12-12-2020 Admission to same day surgery center 12/12/2020 Surgery IP Unit Cleopatra Payan MD [address] [place] [address] [phone] CARPAL TUNNEL RELEASE ENDOSCOPIC [facility] Comment on above: CARPAL TUNNEL RELEAS E ENDOSCOPIC Start: 12-12-2020 Subsequent hospital visit by physician 12/12/2020 Hospital Encounter IP Unit Cleopatra Payan MD [address] [place], [place] [phone] [facility] Start: 12-09-2020 Potassium monitoring Potassium monit [place], [place] Start: 07-18-2020 End: 07-18-2020 Appointment [facility] PRE ADMIT Comment on above: RIGHT SHOULDER ARTHR OSCOPY, BURSECTOMY POSSIBLE ROTATOR CUFF REPAIR Start: 03-14-2020 Creatinine measurement Creatinine mo nitoring [place], [place] Start: 03-14-2020 Creatinine monitoring Creatinine mon [place], [place] Start: 02-26-2020 Influenza vaccination Flu vaccine (# 1) [place] Start: 01-29-2020 End: 01-29-2020 Office Visit 01/29/2020 Office Visit Obstetrics and Gynecology Magaly Mack MD [address] [place] [address] Dr [address] [place] [address] [facility] Start: 01-23-2020 End: 01-23-2020 Appointment 01/23/2020 Appointment Radiology [facility] Start: 11-09-2019 Creatinine monitoring Creatinine mon [place], [place] Start: 11-09-2019 Potassium monitoring Potassium monit [place], [place] Start: 04-26-2019 Influenza vaccination Flu vaccine (# 1) [place], [place] Comment on above: Postponed from 02/25 (Patient Refused) Start: 02-25-2019 Influenza vaccination Flu vaccine (# 1) [place] Start: 2019 Colon cancer screen colonoscopy Colon cancer screen colonoscopy [place], [place] Start: 2019 Pneumococcal 50+ yea rs Vaccine (1 of 1 - PCV) Pneumococcal 50+ years Vaccine (1 of 1 - PCV) [facility] Start: 2019 Screening for malign ant neoplasm of colon Colon cancer screen colonoscopy [place], [place] Start: 2019 Shingles Vaccine (1 of 2) Shingles Vaccine (1 of 2) [facility] Start: 2014 Screening for malign ant neoplasm of colon [facility] Start: 1999 Screening for malign ant neoplasm of cervix HPV (without or with Pap) [facility] Start: 02-12-1988 DTaP/Tdap/Td vaccine (1 - Tdap) DTaP/Tdap/Td vaccine (1 - Tdap) [facility] Start: 02-12-1988 Hepatitis B vaccine (1 of 3 - 19+ 3-dose series) Hepatitis B vaccine (1 of 3 - 19+ 3-dose series) [facility] Start: 1987 Hepatitis C screening Hepatitis C sc reen [facility] Start: 1981 COVID-19 Vaccine (1) COVID-19 Vaccin e (1) [facility] Start: 1981 Depression Screen Depression Screen [facility] Start: 02-12-1980 DTaP/Tdap/Td vaccine (1 - Tdap) DTaP/Tdap/Td vaccine (1 - Tdap) [place], [place] Start: 1974 COVID-19 Vaccine (1) COVID-19 Vaccin e (1) [facility] Start: 1969 Hepatitis C screening Hepatitis C sc [facility] End: 02-09-2021 COVID-19 COVID-19 Lab Routine Once for 1 Occurrences starting 02/09/2021 until 02/09/2021 [facility] [employer] Phone: Comment on above: Once for 1 Occurrenc es starting 02/09/2021 until 02/09/2021 COVID-19 [facility] [employer] Phone: End: 02-16-2021 COVID-19 COVID-19 Lab Routine Once for 1 Occurrences starting 02/16/2021 until 02/16/2021 [facility] [employer] Phone: Comment on above: Once for 1 Occurrenc es starting 02/16/2021 until 02/16/2021 End: 01-01-2020 Cytopathology procedure, preparation of smear, genital source PAP SMEAR Lab Routine Women's annual routine gynecological examination 1 Occurrences starting 01/01/2020 until 01/01/2020 [employer] [facility] Comment on above: 1 Occurrences starti ng 01/01/2020 until 01/01/2020 End: 09-29-2021 Cytopathology procedure, preparation of smear, genital source PAP SMEAR Lab Routine Women's annual routine gynecological examination 1 Occurrences starting 09/29/2021 until 09/29/2021 [employer] Phone: Comment on above: 1 Occurrences starti ng 09/29/2021 until 09/29/2021 End: 10-23-2024 Cytopathology procedure, preparation of smear, genital source PAP Smear Lab Routine Encounter for well woman exam with routine gynecological exam 1 Occurrences starting 10/23/2024 until 10/23/2024 Artemio Parada [employer] Comment on above: 1 Occurrences starti ng 10/23/2024 until 10/23/2024 Oxygen therapy [[facility] Data Set] [employer] Phone: Comment on above: Daily until disconti nued starting 12/12/2020 Daily until disconti nued starting 02/13/2021 Daily until disconti nued starting 02/18/2021 Phase I & II - meter ed glucose [employer] Phone: Comment on above: As Needed until disc ontinued starting 12/12/2020 As Needed until disc ontinued starting 02/13/2021 As Needed until disc ontinued starting 02/18/2021 End: 01-29-2020 Surgical Pathology Surgical Pathology Lab Routine Endometrial thickening on ultrasound 1 Occurrences starting 01/29/2020 until 01/29/2020 [employer] ROMAN Comment on above: 1 Occurrences starti ng 01/29/2020 until 01/29/2020 End: 09-29-2021 Surgical Pathology Surgical Pathology Lab Routine Postcoital bleeding 1 Occurrences starting 09/29/2021 until 09/29/2021 [employer] Phone: Comment on above: 1 Occurrences starti ng 09/29/2021 until 09/29/2021 Immunizations Immunization Date Immunization Notes Care Provider Keith zambrano 10-27-2020 COVID-19 Ad26.COV2.S (Carloz) PHYSICIAN NO [facility] NEGATED: Highlighted row has not occurred!10-09-2024 influenza virus vaccine, unspecified formulation MELANY PATO [facility] NEGATED: Highlighted row has not occurred!06-21-2023 influenza virus vaccine, unspecified formulation MELANY PATO [facility] Comment on above: Result Comment: Helga ent refused NEGATED: Highlighted row has not occurred!05-30-2023 influenza virus vaccine, unspecified formulation MELANY PATO [facility] NEGATED: Highlighted row has not occurred!05-02-2023 influenza virus vaccine, unspecified formulation MELANY PATO [facility] NEGATED: Highlighted row has not occurred!03-14-2023 influenza virus vaccine, unspecified formulation MELANY PATO [facility] NEGATED: Highlighted row has not occurred!04-20-2022 influenza virus vaccine, unspecified formulation Sia Klonk [facility] NEGATED: Highlighted row has not occurred!11-17-2020 influenza virus vaccine, unspecified formulation Sia Klonk [facility] Payers Date Payer Category Payer Medicaid [id number] 2024 Private Health Insurance [id number] 2024 Private Health Insurance [id number] 1.2.840.485831.1.13.239.2 .7.9.292110.4918.315 2023 Medicare [id number] 2.16.840.1.976858.19 2023 Unknown [id number] 2022 Medicaid [id number] 2022 Self-pay [id number] 2020 Unknown [id number] 1.2.840.047550.1.13.239.2 .7.3.422169.315 2020 Unknown [id number] 1.2.840.469601.1.13.239.2 .7.3.389546.315 2017 Unknown [employer]GE [employer] xxxxxxxxxxx 2017-Present [phone] [address] [place] [address] xxxxxxxxxxx 1.2.840.657040.1.13.239.2 .7.3.605464.315 2016 Unknown VIET FISCHER xxxxxxxx 2016-Present [phone] [address] [place] [address] xxxxxxxx 1.2.840.153627.1.13.239.2 .7.3.936838.315 2016 Unknown [employer] xxxxxxxxx 2016-Present [phone] [address] [place] [address] xxxxxxxxx 1.2.840.385969.1.13.239.2 .7.3.033402.315 2016 Unknown [id number] 1.2.840.445219.1.13.239.2 .7.3.258804.315 1969 Unknown [id number] 2.16.840.1.620378.3.579.2 .173 1969 Unknown [id number] 2.16.840.1.157441.3.579.2 .173 1969 Unknown [id number] 2.16.840.1.482273.3.579.2 .173 1969 Unknown [id number] 2.16.840.1.317199.3.579.2 .173 1969 Unknown [id number] 2.16.840.1.140981.3.579.2 .173 1969 Unknown [id number] 2.16.840.1.573897.3.579.2 .173 1969 Unknown [id number] 2.16.840.1.994764.3.579.2 .173 1969 Unknown [id number] 2..840.1.640860.3.579.2 .173 1969 Unknown [id number] 2.840.1.231061.3.579.2 .173 1969 Unknown [id number] 2.840.1.070658.3.579.2 .1259 1969 Unknown [id number] 2.840.1.656292.3.579.2 .174 1969 Unknown [id number] 2.840.1.822494.3.579.2 .72 1969 Unknown [id number] .840.1.649225.3.579.2 .727 1969 Unknown [id number] 2.840.1.776903.3.579.2 .727 1969 Unknown [id number] 2..840.1.577361.3.579.2 .727 1969 Unknown [id number] 2.840.1.810903.3.579.2 .72 1969 Unknown [id number] 2.16.840.1.574881.3.579.2 .727 1969 Unknown [id number] 2.840.1.213054.3.579.2 .727 1969 Unknown [id number] 2.16.840.1.236098.3.579.2 .727 1969 Unknown [id number] ..840.1.382013.3.579.2 1969 Unknown [id number] 2.16.840.1.670164.3.579.2 1969 Unknown [id number] ..840.1.434479.3.579.2 1969 Unknown [id number] 2..840.1.173924.3.579.2 1969 Unknown [id number] .840.1.851634.3.579.2 1969 Unknown [id number] .840.1.874212.3.579.2 1969 Unknown [id number] 840.1.514790.3.579.2 1969 Unknown [id number] .840.1.411487.3.579.2 1969 Unknown [id number] 840.1.797933.3.579.2 1969 Unknown [id number] 2.840.1.288727.3.579.2 1969 Unknown [id number] 840.1.194023.3.579.2 1969 Unknown [id number] .840.1.036256.3.579.2 1969 Unknown [id number] 2.16840.1.605933.3.579.2 .72 Medicaid [id number] 2.840.1.091950.19 Unknown [id number] 2.16.840.1.596517.19 Unknown [id number] 216.840.1.299524.3.579.2 .531 Unknown [id number] 2.16.840.1.923258.3.579.2 .531 Unknown [id number] 2.16.840.1.753452.3.579.2 .531 Unknown [id number] 2.16.840.1.244184.3.579.2 .531 Unknown [id number] 2.16.840.1.012942.3.579.2 .531 Unknown [id number] 2.16.840.1.859323.3.579.2 .531 Unknown [id number] 2.16.840.1.894978.3.579.2 .531 Unknown [id number] 2.16.840.1.579235.3.579.2 .531 Unknown [id number] 2.16.840.1.085267.3.579.2 .531 Unknown [id number] 2.16.840.1.048073.3.579.2 .531 Unknown [id number] 2.16.840.1.141001.3.579.2 .531 Unknown [id number] 2.16.840.1.094658.3.579.2 .531 Unknown [id number] 2.16.840.1.927885.3.579.2 .531 Worker's Compensation [facility] [id number] Social History Date Type Detail Facility Start: 11-24-2018 End: 10-24-2024 Tobacco smoking status LAIS Never smoker [facility] Comment on above: denies use. Start: 11-24-2018 End: 10-23-2024 Alcohol intake Current drinker of alcohol (finding) [place], [place] Start: 1970 Sex Assigned At Not on file [place] Start: 01-29-2020 End: 10-23-2024 Tobacco use and exposure Never used [place] Start: 11-24-2018 End: 01-01-2020 Alcohol intake Yes [place] Start: 01-01-2020 End: 07-22-2020 Alcohol intake [facility] Start: 12-08-2020 Alcohol Comment SOCIAL Geraldine aranda Work Phone: Start: 1970 [facility] [employer] Work Phone: Exposure to SARS-CoV -2 (event) Not sure [facility] [facility] Start: 08-06-2012 End: 04-22-2017 Sex Female (finding) [facility] Start: 12-09-2020 Gender identity Identifies as female gender (finding) [facility] Start: 12-09-2020 Sexual orientation Heterosexual (fin ding) [facility] Medical Equipment Procedure Code Equipment Code Equipment Origin al Text Equipment Identifier Dates Arthroscopy, shoulder Tendon/ligament bone anchor, non-bioabsorbable [id number] [facility] Start: 03-31-2022 Arthroscopy, shoulder Tendon/ligament bone anchor, bioabsorbable [id number] [facility] Start: 03-31-2022 Button Endoscopi c Bicep 2.6x12mm [id number] Start: 11-24-2018 Start: 07-05-2022 Goals Date Patient Goal Desired Activity /State Functional Status Date Assessment Result Facility 06-21-2023 Functional Status N/A [facility] 05-30-2023 Functional Status N/A [facility] 05-02-2023 Functional Status N/A [facility] 04-18-2023 Functional Status N/A [facility] 03-14-2023 Functional Status N/A [facility] 08-12-2022 Functional Status N/A [facility] 04-20-2022 Functional Status N/A [facility] 12-09-2021 Functional Status N/A [facility] Clinical Notes 12-12-2020 to 10-24-2024 Note Date & Type Note Facility 10-24-2024 Note Patient Education Gastroenterology Obesity, Adult Obesity is having too much body fat. Being obese means that your weight is more than what is healthy for you. BMI (body mass index) is a number that explains how much body fat you have. If you have a BMI of 30 or more, you are obese. Obesity can cause serious health problems, such as: ??? Stroke. ??? Coronary artery disease (CAD). ??? Type 2 diabetes. ??? Some types of cancer. ??? High blood pressure (hypertension). ??? High cholesterol. ??? Gallbladder stones. Obesity can also contribute to: ??? Osteoarthritis. ??? Sleep apnea. ??? Infertility problems. What are the causes? Eating meals each day that are high in calories, sugar, and fat. ??? Drinking a lot of drinks that have sugar in them. ??? Being born with genes that may make you more likely to become obese. ??? Having a medical condition that causes obesity. ??? Taking certain medicines. ??? Sitting a lot (having a sedentary lifestyle). ??? Not getting enough sleep. What increases the risk? Having a family history of obesity. ??? Living in an area with limited access to: ? [place], recreation centers, or sidewalks. ? Healthy food choices, such as grocery stores and [employer] markets. What are the signs or symptoms? The main sign is having too much body fat. How is this treated? Treatment for this condition often includes changing your lifestyle. Treatment may include: ??? Changing your diet. This may include making a healthy meal plan. ??? Exercise. This may include activity that causes your heart to beat faster (aerobic exercise) and strength training. Work with your doctor to design a program that works for you. ??? Medicine to help you lose weight. This may be used if you are not able to lose one pound a week after 6 weeks of healthy eating and more exercise. ??? Treating conditions that cause the obesity. ??? Surgery. Options may include gastric banding and gastric bypass. This may be done if: ? Other treatments have not helped to improve your condition. ? You have a BMI of 40 or higher. ? You have life-threatening health problems related to obesity. Follow these instructions at home: Eating and drinking ??? Follow advice from your doctor about what [...] iced tea with sugar, and flavored milk. ??? Drink enough water to keep your pee (urine) pale yellow. ??? Do not go on fad diets. Physical activity ??? Exercise often, as told by your doctor. Most adults should get up to 150 minutes of moderate-intensity exercise every week.Ask your doctor: ? What types of exercise are safe for you. ? How often you should exercise. ??? Warm up and stretch before being active. ??? Do slow stretching after being active (cool down). ??? Rest between times of being active. Lifestyle ??? Work with your doctor and a food expert (dietitian) to set a weight-loss goal that is best for you. ??? Limit your screen time. ??? Find ways to reward yourself that do not involve food. ??? Do not drink alcohol if: ? Your doctor tells you not to drink. ? You are , may be , or are planning to become . ??? If you drink alcohol: ? Limit how [...] of hard liquor (44 mL). General instructions ??? Keep a weight-loss journal. This can help you keep track of: ? The food that you eat. ? How much exercise you get. ??? Take tgjg-wrn-cqdaynh and prescription medicines only as told by your doctor. ??? Take vitamins and supplements only as told by your doctor. ??? Think about joining a support group. ??? Pay attention to your mental health as obesity can lead to depression or self esteem issues. ??? Keep all follow-up visits. Contact a doctor if: ??? You cannot meet your weight-loss goal after you have changed your diet and lifestyle for 6 weeks. ??? You are having trouble breathing. Summary ??? Obesity is having too much body fat. ??? Being obese means that your weight is more than what is healthy for you. ??? Work with your doctor to set a weight-loss goal. ??? Get regular exercise as told by your doctor. This information is not intend (more content not included)... [facility] 10-16-2024 Note Nurse Consultation [place] Reason for Visit patient came [place] for lab draw Assessment/Plan 1. GERD (gastroesophageal reflux disease) (K21.9: Gastro-esophageal reflux disease without esophagitis) Medications Adipex-P 37.5 mg Tab, 37.5 mg= 1 tab(s), Oral, Daily Albuterol (Eqv-Proventil HFA) 90 mcg/inh inhalation aerosol, See Instructions Handicap placard, See Instructions ibuprofen 800 mg Tab, See Instructions lift chair, See Instructions Voltaren Arthritis Pain 1% topical gel, 2 gm, Topical, QID, 2 refills Wixela Inhub 250 mcg-50 mcg inhalation powder, See Instructions Allergies traMADol (Tachycardia, Nausea) Immunizations Vaccine Date Status Comments influenza virus vaccine, inactivated - Not Given Patient Refuses influenza virus vaccine, inactivated - Not Given Patient Refuses Patient refused influenza virus vaccine, inactivated - Not Given Postpone due to refusal influenza virus vaccine, inactivated - Not Given Postpone due to refusal influenza virus vaccine, inactivated - Not Given Postpone due to refusal influenza virus vaccine, inactivated - Not Given Patient Refuses influenza virus vaccine, inactivated - Not Given Patient Refuses [facility] 10-09-2024 Note Patient Education Mental and Behavioral Health Managing Depression, Adult Depression is a mental health condition that affects your thoughts, feelings, and actions. Being diagnosed with depression can bring you relief if you did not know why you have felt or behaved a certain way. It could also leave you feeling overwhelmed. Finding ways to manage your symptoms can help you feel more positive about your future. How to manage lifestyle changes Being depressed is difficult. Depression can increase the level of everyday stress. Stress can make depression symptoms worse. You may believe your symptoms cannot be managed or will never improve. However, there are many things you can try to help manage your symptoms. There is hope. Managing stress Stress is your body's reaction to life changes and events, both good and bad. Stress can add to your feelings of depression. Learning to manage your stress can help lessen your feelings of depression. Try some of the following approaches to reducing your stress (stress reduction techniques): ??? Listen to music that you enjoy and that inspires you. ??? Try using a meditation jose carlos or take a meditation class. ??? Develop a practice that helps you connect with your spiritual self. Walk in nature, pray, or go to a place of zoroastrianism. ??? Practice deep breathing. To do this, inhale slowly through your nose. Pause at the top of your inhale for a few seconds and then exhale slowly, letting yourself relax. Repeat this three or four times. ??? Practice yoga to help relax and work your muscles. Choose a stress reduction technique that works for you. These techniques take time and practice to develop. Set aside 5?15 minutes a day to do them. Therapists can offer training in these techniques. Do these things to help manage stress: ??? Keep a journal. ??? Know your limits. Set healthy boundaries for yourself and others, such as saying no when you think something is too much. ??? Pay attention to how you react to certain situations. You may not be able to control everything, but you can change your reaction. ??? Add humor to your life by watching funny movies or shows. ??? Make time for activities that you enjoy and that relax you. ??? Spend less time using electronics, especially at night before bed. The light from screens can make your brain think it is time to get up rather than go to bed. Medicines Medicines, such as antidepressants, are often a part of treatment for depression. ??? Talk with your pharmacist or health care provider about all the medicines, supplements, and herbal products that you take, their possible side effects, and what medicines and other products are safe to take together. ??? Make sure to report any side effects you may have to your health care provider. Relationships Your health care provider may suggest family therapy, couples therapy, or individual therapy as part of your treatment. How to recognize changes Everyone responds differently to treatment for depression. As you recover from depression, you may start to: ??? Have more interest in doing activities. ??? Feel more hopeful. ??? Have more energy. ??? Eat a more regular amount of food. ??? Have better mental focus. It is important to recognize if your depression is not getting better or is getting worse. The symptoms you had in the beginning may return, such as: ??? Feeling tired. ??? Eating too much or too little. ??? Sleeping too much or too little. ??? Feeling restless, agitated, or hopeless. ??? Trouble focusing or making decisions. ??? Having unexplained aches and pains. ??? Feeling irritable, angry, or aggressive. If you or your family members notice these symptoms coming back, let your health care provider know right away. Follow these instructions at home: Activity ??? Try to get some form of exercise each day, such as walking. ??? Try yoga, mindfulness, or other stress reduction techniques. ??? Participate in group activities if you are able. Lifestyle ??? Get enough sleep. ??? Cut down on or stop using caffeine, tobacco, alcohol, and any other harmful substances. ??? Eat a healthy diet that includes plenty of vegetables, fruits, whole grains, low-fat dairy products, and lean protein. Limit foods that are high in solid fats, added sugar, or salt (sodium). General instructions ??? Take gibm-yzl-pfacddg and prescription medicines only as told by your health care provider. ??? Keep all follow-up visits. It is important for your health care provider to check on your mood, behavior, and medicines. Your health care provider may need to make changes to your treatment. Where to find support Talking to others Friends and family members can be sources of support and guidance. Talk to trusted friends or family members about your condition. Explain your symptoms and let them know that you are working with a health care (more content not included)... [facility] 09-26-2024 Note Patient Education Physical Medicine and Rehabilitation [...] the more calories you burn. Exercise also: ??? Improves mood. ??? Reduces stress and tension. ??? Improves your overall fitness, flexibility, and endurance. ??? Increases bone strength. Moderate-intensity exercise Moderate-intensity exercise is any activity that gets you moving enough to burn at least three times more energy (calories) than if you were sitting. Examples of moderate exercise include: ??? Walking a mile in 15 minutes. ??? Doing light yard work. ??? Biking at an easy pace. Most people [...] a conversation. Examples of vigorous exercise include: ??? Running. ??? Playing a team sport, such as football, basketball, and soccer. ??? Jumping rope. Most people should get at least 75 minutes a week of vigorous exercise to maintain their body weight. What actions can I take to lose weight? The amount of exercise you need to lose weight depends on: ??? Your age. ??? The type of exercise. ??? Any health conditions you have. ??? Your overall physical ability. Talk to your health care provider about how much exercise you need and what types of activities are safe for you. Nutrition ??? Make changes to your diet as told by your health care provider or diet and medical review specialist (dietitian). This may include: ? Eating fewer calories. ? Eating more protein. ? Eating less unhealthy fats. ? Eating a diet that includes fresh fruits and vegetables, whole grains, low-fat dairy products, and lean protein. ? Avoiding foods with added fat, salt, and sugar. ??? Drink plenty of water while you exercise to prevent dehydration or heat stroke. Activity ??? Choose an activity that you enjoy and set realistic goals. Your health care provider can help you make an exercise plan that works for you. ??? Exercise at a moderate or vigorous intensity most days of the week. ? The intensity of exercise may vary from person to person. You can tell how intense a workout is for you by paying attention to your breathing and heartbeat. Most people will notice their breathing and heartbeat get faster with more intense exercise. ??? Do resistance training twice each week, such as: ? Push-ups. ? Sit-ups. ? Lifting weights. ? Using resistance bands. ??? Getting short amounts of exercise can be [...] the stairs instead of elevators or escalators. ??? Wear comfortable clothes and shoes with good support. ??? Do not exercise so much that you hurt yourself, feel dizzy, or get very short of breath. Where to find more information ??? U.S. Department of Health and Human Services: www.hhs.gov ??? Centers for Disease Control and Prevention: www.cdc.gov Contact a health care provider: ??? Before starting a new exercise program. ??? If you have questions or concerns about your weight. ??? If you have a medical problem that keeps you from exercising. Get help right away if: ??? You have any of the following while [...] services (911 in the [place] Do not (more content not included)... [facility] 08-29-2024 Note Patient Education Gastroenterology Obesity, Adult Obesity is having too much body fat. Being obese means that your weight is more than what is healthy for you. BMI (body mass index) is a number that explains how much body fat you have. If you have a BMI of 30 or more, you are obese. Obesity can cause serious health problems, such as: ??? Stroke. ??? Coronary artery disease (CAD). ??? Type 2 diabetes. ??? Some types of cancer. ??? High blood pressure (hypertension). ??? High cholesterol. ??? Gallbladder stones. Obesity can also contribute to: ??? Osteoarthritis. ??? Sleep apnea. ??? Infertility problems. What are the causes? Eating meals each day that are high in calories, sugar, and fat. ??? Drinking a lot of drinks that have sugar in them. ??? Being born with genes that may make you more likely to become obese. ??? Having a medical condition that causes obesity. ??? Taking certain medicines. ??? Sitting a lot (having a sedentary lifestyle). ??? Not getting enough sleep. What increases the risk? Having a family history of obesity. ??? Living in an area with limited access to: ? [place], recreation centers, or sidewalks. ? Healthy food choices, such as grocery stores and [employer] markets. What are the signs or symptoms? The main sign is having too much body fat. How is this treated? Treatment for this condition often includes changing your lifestyle. Treatment may include: ??? Changing your diet. This may include making a healthy meal plan. ??? Exercise. This may include activity that causes your heart to beat faster (aerobic exercise) and strength training. Work with your doctor to design a program that works for you. ??? Medicine to help you lose weight. This may be used if you are not able to lose one pound a week after 6 weeks of healthy eating and more exercise. ??? Treating conditions that cause the obesity. ??? Surgery. Options may include gastric banding and gastric bypass. This may be done if: ? Other treatments have not helped to improve your condition. ? You have a BMI of 40 or higher. ? You have life-threatening health problems related to obesity. Follow these instructions at home: Eating and drinking ??? Follow advice from your doctor about what [...] iced tea with sugar, and flavored milk. ??? Drink enough water to keep your pee (urine) pale yellow. ??? Do not go on fad diets. Physical activity ??? Exercise often, as told by your doctor. Most adults should get up to 150 minutes of moderate-intensity exercise every week.Ask your doctor: ? What types of exercise are safe for you. ? How often you should exercise. ??? Warm up and stretch before being active. ??? Do slow stretching after being active (cool down). ??? Rest between times of being active. Lifestyle ??? Work with your doctor and a food expert (dietitian) to set a weight-loss goal that is best for you. ??? Limit your screen time. ??? Find ways to reward yourself that do not involve food. ??? Do not drink alcohol if: ? Your doctor tells you not to drink. ? You are , may be , or are planning to become . ??? If you drink alcohol: ? Limit how [...] of hard liquor (44 mL). General instructions ??? Keep a weight-loss journal. This can help you keep track of: ? The food that you eat. ? How much exercise you get. ??? Take zvvc-zgn-hynkxpr and prescription medicines only as told by your doctor. ??? Take vitamins and supplements only as told by your doctor. ??? Think about joining a support group. ??? Pay attention to your mental health as obesity can lead to depression or self esteem issues. ??? Keep all follow-up visits. Contact a doctor if: ??? You cannot meet your weight-loss goal after you have changed your diet and lifestyle for 6 weeks. ??? You are having trouble breathing. Summary ??? Obesity is having too much body fat. ??? Being obese means that your weight is more than what is healthy for you. ??? Work with your doctor to set a weight-loss goal. ??? Get regular exercise as told by your doctor. This information is not intend (more content not included)... [facility] 06-14-2024 Note Patient Education Infectious Disease Influenza, [...] doctor may want you to: ??? Take iufv-kni-rfcrujo medicines. ??? Drink plenty of fluids. The [...] Applesauce. ? Rice. ? Lean meats. ? [place]. ? Crackers. ??? Do not eat or drink: ? Fluids that have a lot of sugar or caffeine. ? Alcohol. ? Spicy or fatty foods. General instructions ??? Take pyyd-pjo-afrvhnu and prescription medicines only as told by [...] use soap and water, use alcohol-based hand automatic mounter. ??? Keep all follow-up visits. How is [...] [place] ??? Do (more content not included)... [facility] 01-04-2024 Note Patient Education Physical [...] your health care provider or diet and medical review specialist (dietitian). This may include: ? Eating fewer [...] ? Getting r (more content not included)... [facility] 06-21-2023 Hospital Discharge instructions Patient Education 06/21/2023 10:36:14 Major Depressive Disorder, Adult, Vcnf-qj-Hgnv Major Depressive Disorder, Adult Major depressive disorder [...] needs of life, such as food and residential. ?Being treated poorly because of race, sex, or anabaptism (discrimination). Health and mental problems that you [...] medicines. ?Any drug use. General instructions Take nqrh-die-hyzuzkq and prescription medicines and herbal preparations only as told by your doctor. Eat a healthy diet. Get a lot of sleep. Think about joining a support group. Your doctor may be able to suggest one. Keep all follow-up visits as told by your doctor. This is important. Where to find more information: National [place] on Mental Illness: www.shashank.org U.[place]. National [place] of Mental Health: www.nimh.nih.gov [place] Psychiatric Association: www.psychiatry.org/patients-famil ies/ Contact a doctor [...] department or: Call your local emergency services (486 in the [place] Call a suicide crisis helpline, such as the National Suicide Prevention Lifeline at or 713 in the [place] This is open 24 hours a day in the [place] Text the Crisis Text Line at 780877 (in the [place] Summary Major depressive disorder [...] provider. Document Revised: 01/06/2022 Document Reviewed: 05/24/2020 [employer] Patient Education 2022 [employer]. Follow Up Care 05/30/2023 08:46:08 With:MELANY SCHUMACHER CNP, FAM Address: [address] [place] [address]- Business (1) When:4 weeks Comments:Weight & Depression [facility] [place] 05-30-2023 Hospital Discharge instructions Patient Education 05/30/2023 [...] numbers. This can be done either in [place] ([place] or metric measurements. Note that charts and online BMI calculators are available to help you find your BMI quickly and easily without having to do these calculations yourself. To calculate your BMI in [place] ([place] measurements: 1.Measure your weight in pounds [...] Centers for Disease Control and Prevention: www.cdc.gov [place] Heart Association: www.heart.org National Heart, Lung, and Blood [place]: www.nhlbi.nih.gov Summary Body mass index (BMI) is a number that is calculated from a person's weight and height. BMI may help estimate how much of a person's weight is composed of fat. BMI can help identify those who may be at higher risk for certain medical problems. BMI can be measured using [place] measurements or metric measurements. BMI charts are used to identify whether you are underweight, normal weight, overweight, or obese. This information is not intended to replace advice given to you by your health care provider. Make sure you discuss any questions you have with your health care provider. Document Revised: 03/05/2020 Document Reviewed: 01/11/2020 [employer] Surgical Patient Education 2022 [employer]. [facility] [place] 05-02-2023 Hospital Discharge instructions Patient Education 05/02/2023 [...] numbers. This can be done either in [place] ([place] or metric measurements. Note that charts and online BMI calculators are available to help you find your BMI quickly and easily without having to do these calculations yourself. To calculate your BMI in [place] ([place] measurements: 1.Measure your weight in pounds [...] Centers for Disease Control and Prevention: www.cdc.gov [place] Heart Association: www.heart.org National Heart, Lung, and Blood [place]: www.nhlbi.nih.gov Summary Body mass index (BMI) is a number that is calculated from a person's weight and height. BMI may help estimate how much of a person's weight is composed of fat. BMI can help identify those who may be at higher risk for certain medical problems. BMI can be measured using [place] measurements or metric measurements. BMI charts are used to identify whether you are underweight, normal weight, overweight, or obese. This information is not intended to replace advice given to you by your health care provider. Make sure you discuss any questions you have with your health care provider. Document Revised: 03/05/2020 Document Reviewed: 01/11/2020 [employer] Patient Education 2022 [employer]. 05/02/2023 11:06:48 Major Depressive Disorder, Adult, Ctmh-ak-Gedt Major Depressive Disorder, Adult Major depressive disorder [...] needs of life, such as food and residential. ?Being treated poorly because of race, sex, or anabaptism (discrimination). Health and mental problems that you [...] medicines. ?Any drug use. General instructions Take fyyz-plm-pvqixrh and prescription medicines and herbal preparations only as told by your doctor. Eat a healthy diet. Get a lot of sleep. Think about joining a support group. Your doctor may be able to suggest one. Keep all follow-up visits as told by your doctor. This is important. Where to find more information: National [place] on Mental Illness: www.shashank.org U.S. National [place] of Mental Health: www.nimh.nih.gov Danish Psychiatric Association: www.psychiatry.org/patients-famil ies/ Contact a doctor [...] department or: Call your local emergency services (494 in the U.S.). Call a suicide crisis helpline, such as the National Suicide Prevention Lifeline at or 942 in the U.S. This is open 24 hours a day in the U.S. Text the Crisis Text Line at 089241 (in the U.S.). Summary Major depressive disorder [...] provider. Document Revised: 01/06/2022 Document Reviewed: 05/24/2020 Compring Patient Education 2022 [employer]. [facility] [place] 05-02-2023 Hospital Discharge instructions Patient Education 05/02/2023 [...] glass of hard liquor (44 mL). Lifestyle [place] your teeth every morning and night with [...] provider. Document Revised: 12/09/2021 Document Reviewed: 12/09/2021 Compring Patient Education 2022 [employer]. 05/02/2023 10:41:10 Major Depressive Disorder, Adult Major [...] things, which may include: Your personality traits. [place] or conditioned behaviors or thoughts or feelings [...] your health care provider. General instructions Take xgil-crs-kkxggti and prescription medicines only as told by your health care provider. Eat a healthy diet and get plenty of sleep. Consider joining a support group. Your health care provider may be able to recommend one. Keep all follow-up visits as told by your health care provider. This is important. Where to find more information National [place] on Mental Illness: www.shashank.org U.S. National Boley of Mental Health: www.nimh.nih.gov Contact a health [...] department or: Call your local emergency services (981 in the U.S.). Call a suicide crisis helpline, such as the National Suicide Prevention Lifeline at or 468 in the U.S. This is open 24 hours a day in the U.S. Text the Crisis Text Line at 120401 (in the U.S.). Summary Major depressive disorder [...] provider. Document Revised: 01/06/2022 Document Reviewed: 05/24/2020 Compring Patient Education 2022 [employer]. 05/02/2023 10:41:09 Healthy Eating Healthy Eating Following [...] soapy water. ?Keep raw meats separate from hgxad-sk-aen foods, such as fruits and vegetables. ?travel accommodation inspector, meat, poultry, and eggs to the recommended [...] include 1 slice of bread, 1 cup xszgc-ho-zui cereal, 3 cups popcorn, or cup cooked [...] U.S. nutrition guidelines. For more information, visit choosemyplate.gov. Exact amounts may vary based on your [...] provider. Document Revised: 02/09/2022 Document Reviewed: 02/09/2022 [employer]ring Patient Education 2022 [employer]. 05/02/2023 10:41:08 Exercising to Lose Weight Exercising [...] your health care provider or diet and medical review specialist (dietitian). This may include: ?Eating fewer calories. [...] provider. Document Revised: 08/09/2021 Document Reviewed: 08/09/2021 [employer]ring Patient Education 2022 [employer]. 05/02/2023 10:41:02 DASH Eating Plan DASH Eating [...] Dairy Whole or 2% milk, cream, and euiv-vqm-ianf. Whole or full-fat cream cheese. Whole-fat or [...] more information National Heart, Lung, and Blood Boley: www.nhlbi.nih.gov Danish Heart Association: www.heart.org Academy of Nutrition and [...] provider. Document Revised: 05/16/2020 Document Reviewed: 05/16/2020 Compring Patient Education 2022 [employer] Inc. 05/02/2023 10:41:00 BMI for Adults BMI for [...] numbers. This can be done either in [place] (U.S.) or metric measurements. Note that charts and online BMI calculators are available to help you find your BMI quickly and easily without having to do these calculations yourself. To calculate your BMI in [place] (U.S.) measurements: 1.Measure your weight in pounds [...] Centers for Disease Control and Prevention: www.cdc.gov Danish Heart Association: www.heart.org National Heart, Lung, and Blood Boley: www.nhlbi.nih.gov Summary Body mass index (BMI) is a number that is calculated from a person's weight and height. BMI may help estimate how much of a person's weight is composed of fat. BMI can help identify those who may be at higher risk for certain medical problems. BMI can be measured using [place] measurements or metric measurements. BMI charts are used to identify whether you are underweight, normal weight, overweight, or obese. This information is not intended to replace advice given to you by your health care provider. Make sure you discuss any questions you have with your health care provider. Document Revised: 03/05/2020 Document Reviewed: 01/11/2020 Elsevier Patient Education 2022 [employer]. [facility] [place] 04-18-2023 Hospital Discharge instructions Patient Education 04/18/2023 [...] Follow these instructions at home: Medicines Take xtzl-jeg-hikzvxi and prescription medicines only as told by your health care provider. Ask your health care provider if the medicine prescribed to you: ?Requires you to avoid driving or using machinery. ?Can cause constipation. You may need to take these actions to prevent or treat constipation: ?Drink enough fluid to keep your urine pale yellow. ?Take waim-fdw-vrquynq or prescription medicines. ?Eat foods that are [...] department or: Call your local emergency services (060 in the U.S.). Call a suicide crisis helpline, such as the National Suicide Prevention Lifeline at or 579 in the U.S. This is open 24 hours a day in the U.S. Text the Crisis Text Line at 416825 (in the U.S.). Summary Chronic pain is [...] provider. Document Revised: 01/06/2022 Document Reviewed: 02/28/2020 ElseFigure 8 Surgical Patient Education 2022 [employer]. Follow Up Care 04/08/2023 12:59:36 With:MELANY SCHUMACHER CNP, FAM Address: [address] [place], [place] [id number]- Business (1) When:2 to 4 weeks Comments:Weight management [facility] [place] 03-14-2023 Hospital Discharge instructions Patient Education 03/14/2023 [...] numbers. This can be done either in [place] (U.S.) or metric measurements. Note that charts and online BMI calculators are available to help you find your BMI quickly and easily without having to do these calculations yourself. To calculate your BMI in [place] (U.S.) measurements: 1.Measure your weight in pounds [...] Centers for Disease Control and Prevention: www.cdc.gov Danish Heart Association: www.heart.org National Heart, Lung, and Blood Boley: www.nhlbi.nih.gov Summary Body mass index (BMI) is a number that is calculated from a person's weight and height. BMI may help estimate how much of a person's weight is composed of fat. BMI can help identify those who may be at higher risk for certain medical problems. BMI can be measured using [place] measurements or metric measurements. BMI charts are used to identify whether you are underweight, normal weight, overweight, or obese. This information is not intended to replace advice given to you by your health care provider. Make sure you discuss any questions you have with your health care provider. Document Revised: 03/05/2020 Document Reviewed: 01/11/2020 Compring Patient Education 2022 [employer]. Follow Up Care 02/23/2023 15:47:08 With:MELANY SCHUMACHER CNP, FAM Address: [address] [place], [place] [id number]- Business (1) When:3 months [facility] [place] 01-24-2023 Evaluation note Encounter Date Diagnosis Assessment [...] Arthritis of right knee (ICD-10 - M17.11) Virtual Paper Other 06-28-2023 Evaluation note* Encounter Date Diagnosis Assessment Notes Treatment Notes Treatment Clinical Notes Nov, Primary osteoarthritis of left knee (ICD-10 - M17.12) Virtual [facility] Other 06-27-2023 Evaluation note* Encounter Date Diagnosis Assessment Notes Treatment Notes Treatment Clinical Notes Nov, Primary osteoarthritis of left knee (ICD-10 - M17.12) Nov, Chondromalacia, left knee (ICD-10 - 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 The patient continues to have pain. We discussed that this may be a snf problem. We discussed the continuation of non impact exercises like biking/swimming and quadriceps strengthening which can be beneficial in relieving pain. Patient also instructed on the occasional use of non-steroidal anti-inflammatory medication. Patient may also consider cortisone injection as well as hyaluronic injections. Patient states she will continue to work on exercises. Nov, Other specified postprocedural states (ICD-10 - Z98.890) [facility] Other 04-10-2023 Evaluation note* Encounter Date Diagnosis [...] Other specified postprocedural states (ICD-10 - Z98.890) [facility] Other 03-09-2023 Evaluation note* Encounter Date Diagnosis [...] in the office today and providing supervision. [facility] Other 02-27-2023 Evaluation note* Encounter Date Diagnosis [...] M25.562) Jul, Pre-op exam (ICD-10 - Z01.818) [facility] Other 02-27-2023 Evaluation note* Encounter Date Diagnosis Assessment Notes Treatment Notes Treatment Clinical Notes Jul, Other specified postprocedural states (ICD-10 - Z98.890) [facility] Other 02-06-2023 Evaluation note* Encounter Date Diagnosis Assessment Notes Treatment Notes Treatment Clinical Notes Jul, Loud snoring (ICD-10 - R06.83) [facility] Other 01-16-2023 Evaluation note* Encounter Date Diagnosis [...] M94.262) Jun, Pre-op exam (ICD-10 - Z01.818) [facility] Other 01-09-2023 Evaluation note* Encounter Date Diagnosis [...] be metformin Strongly encouraged working with our park naturalist for weight loss goals and using it [...] ability to exercise. Strongly encourage working with park naturalist around these limitations. Jun, Primary osteoarthritis of [...] the week. Encouraged to take advantage of park naturalist available at [facility] that can help work around limitations. [...] possible. Jun, Back pain (ICD-10 - M54.9) Virtual Paper Other 12-01-2022 Evaluation note* Encounter Date Diagnosis [...] Other specified postprocedural states (ICD-10 - Z98.890) [facility] Other 10-17-2022 Evaluation note* Encounter Date Diagnosis [...] steri strips will begin to fall off. [facility] Other 10-04-2022 Evaluation note* Encounter Date Diagnosis Assessment Notes Treatment Notes Treatment Clinical Notes Mar, Other specified postprocedural states (ICD-10 - Z98.890) [facility] Other 09-13-2022 Evaluation note* Encounter Date Diagnosis [...] of infection, hardware pullout, cuff repair failure, snf pain and stiffness are well known problems [...] M25.511) Feb, Pre-operative examination (ICD-10 - Z01.818) [facility] Other 07-14-2022 Evaluation note* Encounter Date Diagnosis [...] pain of right shoulder (ICD-10 - M25.511) [facility] Other 09-16-2021 NoteHNO ID: [id number] Author: Matthew Velez, PhD Service: ? Author Type: Psychologist Type: Progress Notes Filed: 03/12/2021 1:31 PM Note Text: [facility] Note HNO ID: [id number] Author: Tosin Huffman RD Service: ? Author Type: Registered Dietitian Type: Progress Notes Filed: 02/20/2021 9:51 AM Note Text: No show for virtual nutrition appointment. Telephone call placed at 9:46 AM to [phone]. No voicemail box is set up for this number to leave a message. Unable to contact patient. Left My Chart message with information to reschedule appointment. Tosin Huffman [facility] History of Present illness Narrative* Ligia Fisher [...] least 4 days. Getting covid tested in [place]. covid test sheet faxed to [place]. [facility] this [facility] Phone: 1(728) 477-774708-25-2021 Hospital Discharge instructions* Instructions* Cleopatra Payan MD [...] for any questions regarding your surgery. Call [phone] forurgent questions after 5PM until 8AM 10. [...] MD 02/18/2021 2:27 PM [facility] Phone: 1(286) 685-228008-20-2021 History of Present illness Narrative* Julian Xiong APRN - CRNA - 02/13/2021 12:14 PM EDT MD. Payan [...] only. Pt is getting covid test at [place]. documented in this encounterDigital Orchid Phone: 1(253) 280-349707-14-2021 NoteHNO ID: [id number] Author: Matthew Velez, PhD Service: ? Author Type: Psychologist Type: Progress Notes Filed: 01/10/2021 7:55 PM Note Text: [facility] EVALUATION DATE OF SERVICE: January 07, 2021 TIME OF SERVICE: 8:00 am COST CENTER: [facility] CPT CODE: [id number] Virtual PSYCH DIAGNOSTIC EVAL BILLING CODE: ENDO PSYL YUMI Velez SESSION #: 1 Due to the federal emergency declaration and the need for ongoing mental health services, the following visit was completed virtually and informed consent obtained orally to reduce the risk of COVID-19 exposure. Oral consent to services related to virtual visits was obtained and information was sent via [employer] or read to patient if MyChart not [...] fuentes that she shares with dog), occasional romanian muffin Snack protein shake Lunch ham and [...] or more of the (more content not included)...[facility] NoteHNO ID: [id number] Author: Surendra Dacosta MD Service: ? Author Type: Physician Type: Progress Notes Filed: 01/05/2021 3:00 PM Note Text: Assessment NEW BARIATRIC PATIENT PATIENT NAME: Dasha Mejia REASON FOR CONSULT: Morbid Obesity REQUESTING PHYSICIAN: Olivier DATE of SERVICE: 01/05/2021 TIME of SERVICE: [...] options and pre op teaching. Surendra Dacosta, [facility]06-18-2021 History of Present illness Narrative* Ligia [...] [facility] 12/09/20. documented in this [facility] Work Phone: 1(858) 289-155106-18-2021 Hospital Discharge instructions* Instructions* Josephine Márquez, DEB - [employer] - 12/12/2020 SAME DAY SURGERY INSTRUCTIONS 1. [...] for any questions regarding your surgery. Call [phone] forurgent questions after 5PM until 8AM 10. [...] MD 12/12/2020 2:27 PM documented in this [facility] Work Phone: evaluation + Plan note No data available for this section [facility] Evaluation + Plan note Future Appointments Appointment Date:10/19/2022 09:00:00 AM Scheduled Provider:Sia Thompson NP Location:[facility] Appointment Type:[facility] Evaluation + Plan note Future Appointments Appointment Date:10/21/2022 10:00:00 AM Scheduled Provider: Location:[facility] Appointment Type:PT 45 (FT) Appointment Date:10/26/2022 09:45:00 AM Scheduled Provider: Location:[facility] Appointment Type:PT 45 (FT) Appointment Date:10/28/2022 10:00:00 AM Scheduled Provider: Location:[facility] Appointment Type:PT 45 (FT) Appointment Date:11/02/2022 08:45:00 AM Scheduled Provider: Location:[facility] Appointment Type:PT 45 (FT) Appointment Date:11/04/2022 09:00:00 AM Scheduled Provider: Location:[facility] Appointment Type:PT 45 (FT) Appointment Date:11/08/2022 09:15:00 AM Scheduled Provider: Location:[facility] Appointment Type:PT Re-Eval 45 (FT) [facility] evaluation + Plan note Future Appointments Appointment Date:05/02/2023 09:30:00 AM Scheduled Provider: Location:[facility] Appointment Type:FM Medicare Wellness Welcome Appointment Date:05/02/2023 10:40:00 AM Scheduled Provider:MELANY SCHUMACHER CNP Location:[facility] Appointment Type: Open [facility] Evaluation + Plan note Future Appointments Appointment Date:05/30/2023 08:20:00 AM Scheduled Provider:MELANY SCHUMACHER CNP Location:[facility] Appointment Type:FM Open Appointment Date:05/04/2024 09:30:00 AM Scheduled Provider: Location:[facility] Appointment Type:FM Medicare Wellness Subsequent Future Scheduled Tests Laboratory* HgbA1c 05/02/23 [facility] Evaluation + Plan note Future Appointments Appointment Date:06/21/2023 09:00:00 AM Scheduled Provider:MELANY SCHUMACHER CNP Location:[facility] Appointment Type:FM Open Appointment Date:05/04/2024 09:30:00 AM Scheduled Provider: Location:[facility] Appointment Type:FM Medicare Wellness Subsequent Future Scheduled Tests Laboratory* HgbA1c 05/02/23 [facility] Evaluation + Plan note Future Appointments Appointment Date:07/19/2023 08:20:00 AM Scheduled Provider:M[facility]ER CNP [facility]: Open Appointment Date:05/04/2024 09:30:00 AM Scheduled Provider: Location:[facility] Appointment Type:FM Medicare Wellness Subsequent Future Scheduled Tests Laboratory* HgbA1c 05/02/23 [facility] Evaluation + Plan note Future Appointments Appointment Date:11/09/2023 08:00:00 AM Scheduled Provider:MELANY SCHUMACHER CNP [facility] Type: Open Appointment Date:10/09/2024 08:00:00 AM Scheduled Provider: [facility] Type: Medicare Wellness Subsequent Future Scheduled Tests Laboratory* [facility]gbA [facility] Appointment Date:01/04/2024 08:00:00 AM Scheduled Provider:MELANY SCHUMACHER CNP [facility] Type: Open Appointment Date:10/09/2024 08:00:00 AM Scheduled Provider: [facility] Type: Medicare Wellness Subsequent Future Scheduled Tests Laboratory* bA [facility]ments Appointment Date:10/17/2024 12:15:00 PM Scheduled Provider: [facility] Type:MA Screen (FT) Appointment Date:10/24/2024 09:00:00 AM Scheduled Provider:M[facility]ER [facility]NP [facility] Open Appointment Date:10/30/2024 01:20:00 PM Scheduled Provider:Kvng FALK MD [facility] Type:GS New 30 Appointment Date:10/09/2025 09:30:00 AM Scheduled Provider: [facility] Type: Medicare Wellness Subsequent Future Scheduled Tests Radiology* MA Mamm Screen w/CAD if perf and 3D Amauri 10/17/24 [facility] evaluation + Plan note Future Appointments Appointment Date:10/24/2024 09:00:00 AM Scheduled Provider:MELANY SCHUMACHER CNP [facility] Type:FM Open Appointment Date:10/30/2024 01:20:00 PM Scheduled Provider:Kvng FALK MD Location:[facility] [place] Appointment Type:GS New 30 Appointment Date:10/09/2025 09:30:00 AM Scheduled Provider: [facility] Type:FM Medicare Wellness Subsequent [facility] evaluation + Plan note Future Appointments Appointment Date:11/21/2024 09:00:00 AM Scheduled Provider:MELANY SCHUMACHER CNP [facility] Type:FM Open Appointment Date:10/09/2025 09:30:00 AM Scheduled Provider: [facility] Type:FM Medicare Wellness [facility] General Surgery Sari evaluation note* Diagnosis Post-operative pain- Primary Other acute postoperative pain documented in this encounter [employer] Work Phone: evaluation note* Diagnosis Acute pain of right knee documented in this encounter [employer] Phone: [email or web address] note* Diagnosis Carpal tunnel syndrome of left wrist- Primary Carpal tunnel syndrome documented in this encounter [employer] Work Phone: [email or web address] note* Diagnosis Acute pain of right knee documented in this encounter [employer] Phone: evalysngpn note* Diagnosis Left knee pain, unspecified chronicity documented in this encounter [employer] Work Phone: evalquromm note* Diagnosis Right shoulder pain, unspecified chronicity documented in this encounter [employer] Phone: evalmsbvyl note* Diagnosis Postcoital bleeding Women's annual routine gynecological examination documented in this encounter [employer] Work Phone: [email or web address] noteNo assessment information available [facility] Work Phone: Evaluation noteNo InformationNort Chunnel.[employer] Other Evaluation note* Diagnosis Encounter for well woman exam with routine gynecological exam documented in this encounter [facility] Narrative - Reported* Type Description Date Medical History ANXIETY Medical History HYPERTENSION Medical History MODERATE DEPRESSIVE DISORDER Medical History SLEEP DIFFICULTIES Medical History THICKENED ENDOMETRIUM Medical History asthma Surgical History tubal ligation 1993 Surgical History hand surgery pin placed 2006 Surgical History tonsillectomy Surgical History appendectomy Surgical History TEAR OF BICEPS TENDON 11/24/2018 Surgical History ROTATOR JENNIFER REPAIR Hospitalization History see above Virtual Paper Other [facility]isc[facility]ko general Narrative - Reported* Type Description Date [...] tunnel in bilateral hand s Surgical History [place] teeth removal Surgical History Right shoulder arthr oscopy with supraspinatus rotator cuff repair[using one 5.5 triple loaded Arthrex metallic corkscrew medial row, one 4.7 swivel lock lateral row]Subacromial decompression/Distal clavicle resection/Coracoid plasty 03/31/22 Surgical History Lateral release of left knee 07/19 Hospitalization History see above Virtual Paper Other Hisrdy[facility] general Narrative - Reported* Type Description Date [...] tunnel in bilateral hand s Surgical History [place] teeth removal Surgical History Right shoulder arthr oscopy with supraspinatus rotator cuff repair 03/31/22 Surgical History Lateral release of left knee 07/19 Hospitalization History see above Virtual Paper Other History general Narrative - ReportedNortJefferson Health [employer] Other Hospital Discharge instructions No data available for this section [facility] Hospital Discharge instructions Additional Instructions HERE ARE [...] in ONE week for re-evaluation. 2. Call [phone] for further questions.[facility] Work Phone: Hospital Discharge instructions Additional Instructions [...] you should first call your surgeon at [phone] for advice. If your are unable to contact your surgeon, seek help from a hospital emergency room.[facility] Work Phone: Progress note No data available for this section [facility] Reason for referral (narrative) Referred by: Sia Thompson NP [facility] Reason for Referral Status Reason Specialty Diagnoses / Procedures Referred By Contact Referred To Contact Pending Review Radiology Diagnoses Labral tear of long head of biceps tendon, left, initial encounter Procedures MRI SHOULDER LEFT WO CONTRAST Rosalio Comer PA-C [address] [place] [address] Status Reason Specialty Diagnoses / Procedures Referre d By Contact Referred To Contact Closed Radiology Diagnoses Acute pain of right knee Procedures MRI KNEE RIGHT WO CONTRAST Cleopatra Payan MD [address] [place] [address] Specialty Diagnoses / Procedures Referred By Mela t Referred To Contact Radiology Diagnoses Left knee pain, unspecified chronicity Procedures MRI KNEE LEFT WO CONTRAST Willi Josephine J, PROCESS EXPERT - [employer] [address] [place] [address] Referral ID Status Reason Start Date Expiration Date Visits Re quested Visits Authorized [id number] Closed 05/06/2021 06/04/2021 1 1 Reason Highly suspect QUEENIE. Please evaluate and treat. Thanks! Diagnosis 1 Obesity (E66.9) Diagnosis 2 Depression (F32.9) Diagnosis 3 Hypertension (I10) Diagnosis 4 Daytime sleepiness ( R40.0) Diagnosis 5 Loud snoring (R06.83 ) Referral Organization [facility] Referring Provider First Name Hannah Referring Provider Last Name Leslie Referring Provider Specialty Nurse Pract akash Referred Organization [facility] Referred Address [address] [place], [place],[address] Referred Provider Specialty Sleep Medici ne Referral [...] FoundDocuments on File Type Date Recorded Patient Armature Tester Expl anation Advance Directives and Living Will Power of Reed Dipper Documents on File Type Date Recorded Patient Armature Tester Expl anation Advance Directives and Living Will Power of Reed Dipper Documents on File Type Date Recorded Patient Armature Tester Expl anation ACP-Advance Directive ACP-Power of Reed Dipper Latest Code Status on File Code Status Date Activated Date Inactivated Comments Full Code 07/18/2020 9:40 AM 07/18/2020 4:19 PM Documents on File Type Date Recorded Patient Armature Tester Expl anation ACP-Advance Directive ACP-Power of Reed Dipper Latest Code Status on File Code Status [...] Time Advance Directives No September 15 11:01am Date Activated Date Inactivated Comments 04/03/2021 9:58 AM 04/03/2021 4:02 PM Date Activated Date Inactivated Comments 07/18/2020 9:40 AM 07/18/2020 4:19 PM Summary Purpose Family History No Family History [...] Procedures HC MRI-UPPER EXT JNT WO CONT IPDIA Status Reason Specialty Diagnoses / Procedures Referre d By Contact Referred To Contact Diagnoses Right carpal tunnel syndrome RIGHT CARPAL TUNNEL SYNDROME Procedures HI WRIST ARTHROSCOP,RELEASE XVERS LIG CARPAL TUNNEL RELEASE ENDOSCOPIC Cleopatra Payan MD [address] [place] [address] [facility] [employer] Status Reason Specialty Diagnoses / Procedures Referre d By Contact Referred To Contact Diagnoses Left carpal tunnel syndrome LEFT CARPAL TUNNEL SYNDROME Procedures HI WRIST ARTHROSCOP,RELEASE XVERS LIG CARPAL TUNNEL RELEASE ENDOSCOPIC Cleopatra Payan MD [address] [place] [address] [facility] [employer] Status Reason Specialty Diagnoses / Procedures Referre d By Contact Referred To Contact Diagnoses Carpal tunnel syndrome LEFT CARPAL TUNNEL SYNDROME Procedures HI WRIST ARTHROSCOP,RELEASE XVERS LIG CARPAL TUNNEL RELEASE ENDOSCOPIC Cleopatra Payan MD [address] [place] [address] [facility] [employer] Status Reason Specialty Diagnoses / Procedures Referre d By Contact Referred To Contact Closed Radiology Diagnoses Acute pain of right knee Procedures MRI KNEE RIGHT WO CONTRAST Cleopatra Payan MD [address] [place] [address] Specialty Diagnoses / Procedures Referred By Mela t Referred To Contact Radiology Diagnoses Left knee pain, unspecified chronicity Procedures MRI KNEE LEFT WO CONTRAST Josephine Márquez, PROCESS EXPERT - [employer] [address] [place] [address] Referral ID Status Reason Start Date Expiration Date Visits Re quested Visits Authorized [id number] Closed 05/06/2021 06/04/2021 1 1 Ordered Prescriptions [...] Colette Caballero RN)[id number] (Stopped - Provider: Francie F Lane, PROCESS EXPERT - COUNTERINTELLIGENCE SPECIALIST)1530 (Stopped - Provider: Ligia Fisher RN) PRN [...] hydralazine IV order., PACU only lidocaine-EPINEPHrine 1 %-1:[id number] injection (CANCELED) PRN, Starting on Tue02/18/21 at 1519, Intra-op 1519 (Given - Provid er: Cleopatra Payan MD) ondansetron (ZOFRAN) injection 4 mg 4 mg, IntraVENous, ONCE PRN, Nausea, Starting on Tue02/18/21 at 1449, For 1 dose, Initial antiemetic therapy., PACU only INFORMATION SOURCE (unrecogn ized section and content) DATE CREATED AUTHOR 02/19/2021 [facility] DATE CREATED AUTHOR AUTHOR'S ORGANIZ ATION 07/30/2021 [facility] DATE CREATED AUTHOR AUTHOR'S ORGANIZ ATION 02/06/2023 [facility] DATE CREATED AUTHOR AUTHOR'S ORGANIZ ATION 11/25/2023 [facility] DATE CREATED AUTHOR AUTHOR'S ORGANIZ ATION 10/17/2024 [facility] DATE CREATED AUTHOR AUTHOR'S ORGANIZ ATION 11/01/2024 Geraldine guillen DATE CREATED AUTHOR AUTHOR'S ORGANIZ ATION 11/07/2024 [facility] DATE CREATED AUTHOR AUTHOR'S ORGANIZ ATION 11/24/2024 [facility] Care Teams (unrecognized sec tion and content) City Weighmaster Relationship Specialty Start Date End Date Sia Thompson PROCESS EXPERT - SPANISH LECTURER [address] [place] [address] PCP - General 12/05/20 City Weighmaster Relationship Specialty Start Date End Date Sia Thompson APRN - SPANISH LECTURER [address] [place] [id number] PCP - General 12/05/20 City Weighmaster Relationship Specialty Start Date End Date Sia Thompson PROCESS EXPERT - SPANISH LECTURER [address] [place] [id number] PCP - General 12/05/20 Team Status: Inactive Member Role Status Dates Ariel Mckeon MD Attending Provider Active Sia Thompson SPANISH LECTURER-C Primary Care Provider Active Team Status: Active Member Role Status Dates Ariel Mckeon MD Attending Provider Active PHYSICIAN NO FAMILY Primary Care Provider Active Team Status: Inactive Member Role Status Dates Ariel Mckeon MD Attending Provider Active PHYSICIAN NO FAMILY Primary Care Provider Active Team Status: Active Member Role Status Dates Sia Thompson SPANISH LECTURER-C Primary Care Provider Active Team Status: Inactive Member Role Status Dates Sia Thompson SPANISH LECTURER-C Primary Care Provider Active Ariel Mckeon MD Attending Provider Active Team Status: Active Member Role Status Dates Sia Thompson SPANISH LECTURER-C Primary Care Provider Active Ariel Mckeon MD Attending Provider Active Team Status: Active Member Role Status Dates Sia Thompson SPANISH LECTURER-C Primary Care Provider, Attending Provider Active City Weighmaster Relationship Specialty Start Date End Date Sia Thompson APRN - RONALD [address] [place] [id number] PCP - General 12/05/20 Goals (unrecognized section and content) Goals may [...] BE BASED ON THE PRIMARY CLINICAL RECORDS. [facility] [employer] [facility]. provides no warranty or guarantee of the accuracy or completeness of information in this document.
--- OUTSIDE RECORDS SUMMARY | 2024-12-16 17:50 | XMS_ITS | Clinical Summary ---
Author Organization [facility] Address [address] [place] [address] Care Team Providers Care Washing Machine Installer Name Role Phone Brie Schumacher Frida BATHROOM TILING PROFESSIONAL Unavailable [phone] Allergies Active Allergy Reactions Criticality Noted Date Comments Tramadol Dizziness,Nausea Only,Unknown,Other,Sh ortness of breath,Palpitations High 07/18/2020 Dizziness, lightheadedness Medications albuterol HFA 90 mcg/act inhaler INHALE 1 PUFF BY MOUTH EVERY 4 HOURS NEEDED FOR WHEEZING OR SHORTNESS OF BREATH 4 Active Advair Diskus 250-50 MCG/ACT aerosol powder Activ e Adipex-P 37.5 MG tablet Take 37.5 mg by mouth 4 Active Active Problems No known active problems Social History Tobacco Use Types Packs/Day Years Used Date Smoking Tobacco: Never Smokeless Tobacco: Never Tobacco Cessation:Counseling Given: Not Answered Alcohol Use Standard Drinks/Week Comments Not Currently 0 (1 standard drink = 0.6 oz pur e alcohol) Comments Unknown Sex and Gender Information Value Date Recorded Sex Assigned at Not on file Legal Sex Female 4:38 PM EDT Gender Identity Not on file Sexual Orientation Not on file Last Filed Vital Signs Vital Sign Reading Time Taken Comments Blood Pressure 128/74 11/24/2023 2:36 PM EDT Pulse 79 11/24/2023 2:36 PM EDT Temperature - - Respiratory Rate - - Oxygen Saturation - - Inhaled Oxygen Concentration - - Weight 88 kg (194 lb) 11/24/2023 2:36 PM EDT Height 160 cm (5' 3 ) 11/24/2023 2:36 PM EDT Body Mass Index 34.37 11/24/2023 2:36 PM EDT Plan of Treatment Not on file Insurance [facility] MEDICAID [place] Care Teams Washing Machine Installer Relationship Specialty Start Date End Date Brie Schumacher NP [facility] [address] [place] [address] 11/24/23
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
[2024-12-16 17:53] LABS: Basophils Percent Auto 0.1 % (0.2-2.0); Eosinophils Absolute Auto 0.5 10^3/uL (0.0-0.7); Eosinophils Percent Auto 7.3 % (0.9-7.0); Hematocrit 39.2 % (36.0-48.0); Hemoglobin 13.6 g/dL (12.0-16.0); Immature Granulocytes Abs Auto 0.01 10^3/uL (0.00-0.03); Immature Granulocytes Pct Auto 0.1 % (0.0-0.5); Lymphocytes Absolute Auto 2.1 10^3/uL (1.2-3.8); Lymphocytes Percent Auto 31.6 % (20.5-60.0); Mean Corpuscular HGB Conc 34.7 g/dL (29.9-35.2); Mean Corpuscular Hemoglobin 30.2 pg (26.7-34.0); Mean Corpuscular Volume 86.9 fL (81.0-99.0); Mean Platelet Volume 10.2 fL (9.5-13.5); Monocytes Absolute Auto 0.5 10^3/uL (0.3-0.8); Monocytes Percent Auto 7.5 % (1.7-12.0); Neutrophils Absolute Auto 3.6 10^3/uL (1.4-6.5); Neutrophils Percent Auto 53.4 % (43.0-75.0); Platelet Count 232 10^3/uL (150-450); Red Blood Count 4.51 10^6/uL (4.20-5.40); Red Cell Distribution Width 12.6 % (11.0-15.0); White Blood Count 6.7 10^3/uL (4.0-11.0)
[2024-12-16 18:09] LABS: Alanine Aminotransferase 24 U/L (14-59); Albumin Globulin Ratio 0.9; Albumin Level 3.2 g/dL (3.4-5.0); Alkaline Phosphatase 98 U/L (46-116); Anion Gap 12.4; Aspartate Amino Transferase 17 U/L (15-37); BUN Creatinine Ratio 20.5; Bilirubin Total 0.4 mg/dL (0.2-1.0); Calcium 8.5 mg/dL (8.5-10.1); Carbon Dioxide 26.1 mmol/L (21.0-32.0); Chloride 108 mmol/L (98-107); Estimated GFR (African America >60 (>=60 mL/min/1.73m^2); Estimated GFR (Non-African Ame >60 (>=60 mL/min/1.73m^2); Globulin 3.4 g/dL; Glucose 117 mg/dL (74-106); Potassium 3.5 mmol/L (3.5-5.1); Sodium 143 mmol/L (136-145); Total Protein 6.6 g/dL (6.4-8.2)
[2024-12-16 18:10] LABS: Troponin I High Sensitivity 4.3 pg/mL (4.0-51.3)
[2024-12-16 19:24] LABS: Troponin I High Sensitivity 6.2 pg/mL (4.0-51.3)
== END 2024-12-16 19:45 | disposition home or self-care (01) ==
PROVIDERS: Emergency Medicine; Emergency Provider Internal Medicine; PCP Nurse Practitioner Family
DX: T67.5XXA Heat exhaustion, unspecified, initial encounter (principal); X30.XXXA Exposure to excessive natural heat, initial encounter; Z90.49 Acquired absence of other specified parts of digestive tract; Z98.51 Tubal ligation status
CPT/HCPCS: 36415; 80053; 84484; 85025; 93005; 99285